=== PATIENT | female | born 1940 | race Caucasian/White ===

== ENCOUNTER 2016-07-09 08:09 | Outpatient (CLI) | payer MEDICARE ==
[~2016-07-09] VITALS: Ht 170.2 cm; Wt 63.5 kg
[~2016-07-09 08:09] MED LIST: ACET-2422 PO; ACET-2469 PO; ACET-575 PO; ASPI-999 PO; ATEN50TA PO; BUPIVACAINE 0.5% 30 ML (SENSORCAINE) VIAL ONE; HYDR-3820 PO; LIDOCAINE 1% INJ 20 ML (XYLOCAINE) VIAL ONE; MULT-305 PO; OMEG-160 PO; TRAM50TA2 PO; TRIAMCINOLONE ACET (KENALOG-40) 40 MG/ML 1 ML VIAL ONE; ZOLP5TAB PO
--- OUTSIDE RECORDS SUMMARY | 2016-07-09 08:12 | XMS REPORT | Continuity of Care Document ---
Author Author [facility] Organization [facility] Address Unknown Phone Unavailable Care Team Providers Care Riprap Placing Supervisor Name Role Phone TIKI NAVARRO MD PCP Insurance Providers Payer Name Policy Number Subscriber Name Relationship [employer] [id number] Chavo Lugo 18 Self / Same As Patient [facility] [id number] Chavo Lugo 18 Self / Same As Patient Advance Directives Directive Response Recorded Date/Time Advance Directives Yes 05/10/14 7:53am Health Care Power of Retail Branch Manager Yes 05/10/14 7:53am Organ Donor No 05/10/14 7:53am Resuscitation Status Full Code 05/10/14 7:53am Problems No known problems or medical conditions. Medications No known medications. Social History Social History Problem Response Recorded Date/Time Recent Foreign Travel No 05/10/2014 7:55am Hospital Discharge Instructions No hospital discharge instructions. Plan of Care No plan of care. Functional Status No functional status results. Allergies, Adverse Reactions, Alerts Allergen Type Severity Reaction Status Last Updated No Known Drug Allergies Active 05/10/14 Immunizations No immunization records. Vital Signs Acute Vital Signs Vital Response Date/Time Temperature (Fahrenheit) 98.3 degrees F (97.6 - 99.5) Temperature (Calculated Celsius) 36.45494 degrees C (36.4 - 37.5) Temperature Source Tympanic Pulse Rate (adult) 66 bpm (60 - 90) Respiratory Rate 18 bpm (12 - 24) O2 Sat by Pulse Oximetry 97 % (88 - 100) Blood Pressure 183/87 mm Hg Pain Pain Intensity 4 Pain Pain Intensity 4 Height (Feet) 5 feet Height (Inches) 7.00 inches Height (Calculated Centimeters) 170.529477 cm Weight (Pounds) 165 pounds Weight (Calculated Grams) 57113.742 gm Weight (Calculated Kilograms) 74.441471 kilograms Calculated BMI 25.84 Results No known relevant diagnostic tests, laboratory data and/or discharge summary. Procedures No known history of procedures. Encounters Encounter Location Date/Time Registered Clinic [facility] 05/10/14 7:37am
[2016-07-09 08:23] VITALS: BP 151/68
[2016-07-09 08:50] VITALS: BP 121/98
--- NOTE | 2016-07-09 14:05 | Pain Medicine-Procedure ---
Procedure Pre-Op/Post-Op Diagnosis Diagnosis: spondylosis without myelopathy, lumbar Indications for Operation Low back and hip pain Attending Surgeon Jone Procedure Date of Service: Jul 09, 2016 Procedure: Fluoroscopic guided Right Medial Branch Block of L3 to sacral ala and right sacroiliac joint injection PROCEDURE IN DETAIL: After obtaining informed consent from the patient, the patient's chart was reviewed. The patient was then brought to the procedure room and placed in the prone position. A time out was performed. The back was prepped with antiseptic solution and under fluoroscopic guidance the patient's sacral ala on the right side was identified. 2 mL's of 1% Lidocaine was used to anesthetized the skin over the sacral ala and a 22 gauge 3.5 inch needle was advanced towards the target until bone was contacted. The junction of the superior articular processes and the transverse processes at L3-L5 on the right were then identified and the skin overlying these targets was anesthetized with 1% lidocaine. Next a 22 gauge 3.5 inch needle was inserted through the skin to the level of the lumbar medial branches under radiographic guidance. Attention was then directed to the right sacroiliac joint which was identified under fluoroscopy and the skin overlying the posterior inferior one third of the joint was anesthetized with 1 percent lidocaine and a 22-gauge 3-1/2 inch needle was inserted. The needle was advanced into the joint. Next, after negative aspiration, a 4 ml mixture of 2 mL's Bupivacaine 0.5% and 80 mg Kenalog was injected in 4 equal aliquots for the lumbar medial branches and a total of 40 mg of Kenalog and 2 mL of 0.5 percent bupivacaine was injected in the sacroiliac joint. CSF was negative, paresthesia was negative, Heme was negative. All needles were then flushed with 1% lidocaine and then removed. Band-Aids were applied to all the sites and the patient tolerated the procedure well and was taken to the recovery area in stable condition. Patient was discharged to home in stable condition with no new neurologic deficits. Complications None JAMES HICKEY MD Jul 09, 2016 2:05 pm
== END 2016-07-09 08:53 | disposition home or self-care (01) ==
LOC: CARD 08:09
PROVIDERS: ATTEND Pain Medicine Pain Medicine
DX: M53.3 Sacrococcygeal disorders, not elsewhere classified (principal); M47.816 Spondylosis without myelopathy or radiculopathy, lumbar region; Z79.899 Other long term (current) drug therapy
CPT/HCPCS: 27096; 64493; 64494; 64495

== ENCOUNTER → 2016-07-21 | Outpatient (CLI) | payer MEDICARE ==
[~2016-07-21] MED LIST changes: -BUPIVACAINE 0.5% 30 ML (SENSORCAINE) VIAL ONE; -LIDOCAINE 1% INJ 20 ML (XYLOCAINE) VIAL ONE; -TRIAMCINOLONE ACET (KENALOG-40) 40 MG/ML 1 ML VIAL ONE
--- OUTSIDE RECORDS SUMMARY | 2016-07-21 10:32 | XMS REPORT | Continuity of Care Document ---
Author Author [facility] Organization [facility] Address Unknown Phone Unavailable Care Team Providers Care Heel Stainer Name Role Phone TIKI NAVARRO MD PCP Insurance Providers Payer Name Policy Number Subscriber Name Relationship [employer] [id number] Chavo Lugo 18 Self / Same As Patient [facility] [id number] Chavo Lugo 16 Self / Same As Patient Advance Directives Directive Response Recorded Date/Time Advance Directives Yes 05/10/14 7:53am Health Care Power of Pediatrics Hospitalist Yes 05/10/14 7:53am Organ Donor No 05/10/14 [...] F (97.6 - 99.5) Temperature (Calculated Celsius) 36.11551 degrees C (36.4 - 37.5) Temperature Source Tympanic Pulse Rate (adult) 66 bpm (60 - 90) Respiratory Rate 18 bpm (12 - 24) O2 Sat by Pulse Oximetry 97 % (88 - 100) Blood Pressure 183/87 mm Hg Pain Pain Intensity 4 Pain Pain Intensity 4 Height (Feet) 5 feet Height (Inches) 7.00 inches Height (Calculated Centimeters) 170.376056 cm Weight (Pounds) 165 pounds Weight (Calculated Grams) 24377.742 gm Weight (Calculated Kilograms) 74.461867 kilograms Calculated BMI 25.84 Results No known relevant diagnostic tests, laboratory data and/or discharge summary. Procedures No known history of procedures. Encounters Encounter Location Date/Time Registered Clinic [facility] 05/10/14 7:37am
--- NOTE | 2016-07-21 11:21 | Diagnostic Imaging Report ---
INDICATION: Low back pain EXAMINATION: Lumbar spine AP and lateral views of lumbar spine show scoliosis of lumbar spine convex to the right. There is right lateral listhesis of L3 on L4. Alignment is otherwise normal. There is disc space narrowing of the discs at L1-L2 and L2-3. There is disc space narrowing at L4-5 and L5-S1. IMPRESSION: Moderate scoliosis with associated degenerative changes. There are no fractures or acute abnormality seen. Dictated by: Dictated on workstation # [id number]
== END ==
LOC: RAD 10:28
PROVIDERS: ATTEND Pain Medicine Pain Medicine
DX: M54.5 Low back pain (principal)
CPT/HCPCS: 72100

== ENCOUNTER 2016-10-29 08:52 | Outpatient (CLI) | payer MEDICARE ==
[~2016-10-29] VITALS: Ht 170.2 cm; Wt 63.5 kg
[2016-10-29] MEDS ORDERED: LIDOCAINE 1% INJ 20 ML (XYLOCAINE) VIAL ONE (09:08)
[2016-10-29] MEDS ORDERED: TRIAMCINOLONE ACET (KENALOG-40) 40 MG/ML 1 ML VIAL ONE (09:08)
[2016-10-29] MEDS ORDERED: BUPIVACAINE 0.25% 30 ML (SENSORCAINE) VIAL ONE (09:08)
[2016-10-29 09:13] VITALS: BP 144/86
[2016-10-29] MEDS ORDERED: BUPIVACAINE 0.5% 30 ML (SENSORCAINE) VIAL ONE (09:20)
[2016-10-29 10:08] VITALS: BP 165/81
--- NOTE | 2016-10-29 13:15 | Pain Medicine-Procedure ---
Procedure Pre-Op/Post-Op Diagnosis Diagnosis: spondylosis without myelopathy, lumbar Indications for Operation Low back and hip pain Attending Surgeon Jone Procedure Date of Service: October 29, 2016 Procedure: Fluoroscopic guided Right Medial Branch Block of L3 to sacral ala and right sacroiliac joint injection PROCEDURE IN DETAIL: After obtaining informed consent from the patient, the patient's chart was reviewed. The patient was then brought to the procedure room and placed in the prone position. A time out was performed. The back was prepped with antiseptic solution and under fluoroscopic guidance the patient's sacral ala on the right side was identified. 2 mL's of 1% Lidocaine was used to anesthetized the skin over the sacral ala and a 22 gauge 3.5 inch needle was advanced towards the target until bone was contacted. The junction of the superior articular processes and the transverse processes at L3-L5 on the right were then identified and the skin overlying these targets was anesthetized with 1% lidocaine. Next a 22 gauge 3.5 inch needle was inserted through the skin to the level of the lumbar medial branches under radiographic guidance. Attention was then directed to the right sacroiliac joint which was identified under fluoroscopy and the skin overlying the posterior inferior one third of the joint was anesthetized with 1 percent lidocaine and a 22-gauge 3-1/2 inch needle was inserted. The needle was advanced into the joint. Next, after negative aspiration, a 4 ml mixture of 2 mL's Bupivacaine 0.5% and 80 mg Kenalog was injected in 4 equal aliquots for the lumbar medial branches and a total of 40 mg of Kenalog and 2 mL of 0.5 percent bupivacaine was injected in the sacroiliac joint. CSF was negative, paresthesia was negative, Heme was negative. All needles were then flushed with 1% lidocaine and then removed. Band-Aids were applied to all the sites and the patient tolerated the procedure well and was taken to the recovery area in stable condition. Patient was discharged to home in stable condition with no new neurologic deficits. Complications None JAMES HICKEY MD October 29, 2016 1:14 pm
== END 2016-10-29 10:08 | disposition home or self-care (01) ==
LOC: CARD 08:52
PROVIDERS: ATTEND Pain Medicine Pain Medicine
DX: M53.3 Sacrococcygeal disorders, not elsewhere classified (principal); M47.816 Spondylosis without myelopathy or radiculopathy, lumbar region
CPT/HCPCS: 27096; 64493; 64494; 64495

== ENCOUNTER → 2016-11-08 | Outpatient (CLI) | payer MEDICARE ==
[2016-11-08 12:56] LABS: BASOPHILS % (AUTO) 0 % (0-10); EOSINOPHILS # (AUTO) 0.1 10^3/uL (0.0-0.3); EOSINOPHILS % (AUTO) 1 % (0-10); LYMPHOCYTES # (AUTO) 1.9 X 10^3 (1.0-4.0); LYMPHOCYTES % (AUTO) 16 % (12-44); MEAN CORPUSCULAR HEMOGLOBIN 29 PG (25-34); MEAN CORPUSCULAR HGB CONC 32 G/DL (32-36); MEAN CORPUSCULAR VOLUME 89 FL (80-99); MEAN PLATELET VOLUME 9.7 FL (7.4-10.4); MONOCYTES # (AUTO) 0.8 X 10^3 (0.0-1.0); MONOCYTES % (AUTO) 7 % (0-12); NEUTROPHILS # (AUTO) 8.7 X 10^3 (1.8-7.8); NEUTROPHILS % (AUTO) 76 % (42-75); PLATELET COUNT 316 10^3/uL (130-400); WHITE BLOOD COUNT 11.5 10^3/uL (4.3-11.0)
[2016-11-08 13:09] LABS: PROTHROMBIN TIME PATIENT 12.4 SEC (12.2-14.7)
[2016-11-08 13:17] LABS: ALBUMIN 4.4 G/DL (3.2-4.5); BILIRUBIN,DIRECT 0.1 MG/DL (0.0-0.3); BILIRUBIN,INDIRECT 0.4 MG/DL; BILIRUBIN,TOTAL 0.5 MG/DL (0.1-1.0); TOTAL PROTEIN 6.9 G/DL (6.4-8.2)
== END ==
LOC: LAB 12:37
PROVIDERS: ATTEND Nurse Practitioner Family
DX: T14.8 Other injury of unspecified body region (principal); R74.8 Abnormal levels of other serum enzymes
CPT/HCPCS: 36415; 80076; 85025; 85610

== ENCOUNTER 2017-02-24 15:31 | Outpatient (CLI) | payer MEDICARE ==
[~2017-02-24] VITALS: Ht 170.2 cm; Wt 63.0 kg
[2017-02-24] MEDS ORDERED: methylPREDNISolone 80 MG/ML (DEPO MEDROL) VIAL ONE (16:08)
[2017-02-24 16:12] VITALS: BP 148/67
[2017-02-24 16:25] VITALS: BP 175/70
--- NOTE | 2017-03-02 07:36 | OPERATIVE REPORT ---
DATE OF SERVICE: 02/24/2017 DIAGNOSES: 1. Lumbar spondylosis. 2. Lumbar facet arthropathy. PROCEDURE: Fluoroscopic-guided facet medial branch block (right, left or bilateral). PROCEDURE IN DETAIL: After obtaining informed consent from the patient, the patient's chart was reviewed. The patient was then brought to the procedure room and placed in prone position. Time-out was performed. The area and the ____ neck, upper back, lower back was prepped with antiseptic solution and under fluoroscopic guidance, the patient's area was examined and the facet joints listed above were identified. ____ was identified under fluoroscopy. A 22-guage 3-1/2 inch spinal needle was inserted and advanced under fluoroscopy down to the area where the pedicle and the transverse process meet and approximately 1 mL of 1% lidocaine was injected at this level. This was then repeated for the remainder of the levels stated above. Afterwards, the needle was removed. Band-Aids were applied to all sites and the patient tolerated the procedure well and was taken to the recovery area in stable condition. COMPLICATIONS: None. Job ID: [id number] DocumentID: [id number] Dictated Date: 02/28/2017 16:46:19 Tennis Instructor Date: 03/01/2017 04:53:35 Dictated By: CAN LAZCANO DO
== END 2017-02-24 16:34 ==
LOC: CARD 15:31
PROVIDERS: ATTEND Pain Medicine Interventional Pain Medicine
DX: M47.816 Spondylosis without myelopathy or radiculopathy, lumbar region (principal); G89.4 Chronic pain syndrome; M54.16 Radiculopathy, lumbar region
CPT/HCPCS: 64493; 64494; 64495

== ENCOUNTER 2017-06-16 12:25 | Outpatient (CLI) | payer MEDICARE ==
[~2017-06-16] VITALS: Ht 170.2 cm; Wt 62.6 kg
[2017-06-16] MEDS ORDERED: methylPREDNISolone 80 MG/ML (DEPO MEDROL) VIAL ONE (12:31)
[2017-06-16 13:03] VITALS: BP 136/57
[2017-06-16 14:01] VITALS: BP 140/62
--- NOTE | 2017-06-18 03:57 | OPERATIVE REPORT ---
DATE OF SERVICE: 06/16/2017 DIAGNOSIS: Lumbar spondylosis. PROCEDURE: Fluoroscopic-guided facet medial branch block right-sided L3, L4, L5, and S1 facet joint nerve block. PROCEDURE IN DETAIL: After obtaining informed consent from the patient, the patient's chart was reviewed. The patient was then brought to the procedure room and placed in prone position. Time-out was performed. The area and the right neck, upper back, lower back was prepped with antiseptic solution and under fluoroscopic guidance, the patient's right side L3, L4, L5 and S1 area was examined and the facet joints listed above were identified. Right side L3, L4, L5, and S1 was identified under fluoroscopy. A 22-gauge 3-1/2 inch spinal needle was inserted and advanced under fluoroscopy down to the area where the pedicle and the transverse process meet and approximately 1 mL of 1% lidocaine was injected at this level. This was then repeated for the remainder of the levels stated above. Afterwards, the needle was removed. Band-Aids were applied to all sites and the patient tolerated the procedure well and was taken to the recovery area in stable condition. COMPLICATIONS: None. Job ID: [id number] DocumentID: [id number] Dictated Date: 06/17/2017 19:05:25 Linux Engineer Date: 06/18/2017 03:56:44 Dictated By: CNA LAZCANO DO
== END 2017-06-16 14:03 ==
LOC: CARD 12:25
PROVIDERS: ATTEND Pain Medicine Interventional Pain Medicine
DX: M54.16 Radiculopathy, lumbar region (principal)
CPT/HCPCS: 62323

== ENCOUNTER → 2017-11-10 | Outpatient (CLI) | payer MEDICARE ==
--- NOTE | 2017-11-10 17:20 | Diagnostic Imaging Report ---
INDICATION: Pain in right fourth finger. TIME OF EXAM: 1:34 p.m. Three views of the right fourth finger were obtained. The alignment is normal. Phalanges appear intact. Joint spaces are maintained. Soft tissues are unremarkable. No fractures are identified. IMPRESSION: No acute bony abnormality is detected. Dictated by: Dictated on workstation # [id number]
== END ==
LOC: RAD 13:03
PROVIDERS: ATTEND Nurse Practitioner Family
DX: M79.644 Pain in right finger(s) (principal)
CPT/HCPCS: 73140

== ENCOUNTER 2018-10-02 19:06 | Inpatient (IN) | payer MEDICARE | END 2018-10-05 11:16 | LOC: ER 19:06 → ICU 10-03 20:32 → 4TH 10-03 20:32 ==

== ENCOUNTER 2018-10-05 10:35 | Inpatient (IN) | payer MEDICARE ==
[~2018-10-05] VITALS: Ht 165.1 cm; Wt 70.3 kg
[~2018-10-05 10:35] MED LIST changes: +ACET-2267 PO; +ASPI-983 PO; +LORA10TA76 PO; +MELA3TAB PO; +MULT-633 PO; +TOLT2CAP PO; +TOLTA4 PO
--- NOTE | 2018-10-05 10:35 | NUR ---
Pt admitted to room 232-1, with an admitting diagnosis of S/P Lt hip hemiarthroplasty post fall at home from 4th surgical unit accompanied by PT. CHAVO LUGO introduced to surroundings, call light, bed controls, phone, TV, temperature control, lights, meal times, smoking policy, visitor policy, side rail policy, bathrooms and showers. Patient Rights given to patient in the handbook. CHAVO LUGO verbalizes understanding that [facility] is not responsible for the loss or damage to any personal effects or valuables that are kept in the patients posession during their hospitalization. The following Patient Care Plans were discussed with the pt: Discharge Planning, Impaired Mobility, Self Care Deficit, Potential for fall/injury. CHAVO LUGO verbalizes understanding of Interdisciplinary Patient Education. Patient and/or family were informed about the Rapid Response Team and its purpose. Patient received Patient Rights Booklet, which includes Privacy Act Statement and Data Collection Information Summary. Pt working w PT immediately upon arrival to unit.
--- NOTE | 2018-10-05 11:41 | Physical Therapy Evaluation ---
PT Evaluation-General Medical Diagnosis Admission Date Medical Diagnosis: left hip fracture Onset Date: Oct 02, 2018 Therapy Diagnosis Therapy Diagnosis: impaired mobility, strength, endurance Height/Weight Height (Feet): 5 Height (Inches): 5.00 Weight (Pounds): 138 Weight (Ounces): 6.0 Weight Bear Status Left Lower Extremity: Left Touch Toe Bearing total hip precautions Referral Physician: Brigette Lopez DO Reason for Referral: Evaluation/Treatment Medical History Pertinent Medical History: Arthritis, HTN Reviewed History: Yes Social History Home: Multilevel Current Living Status: Spouse Entry Into Home: Stairs With Railing PT Steps Into Home: 1 Prior/Core FIM Prior Level of Function Therapy Code Descriptions/Definitions Functional [place] Measure: 0=Not Assessed/NA 4=Minimal Assistance 1=Total Assistance 5=Supervision or Setup 2=Maximal Assistance 6=Modified [place] 3=Moderate Assistance 7=Complete [place] Therapy Quality Codes: 6 Independent with activity with or without an assistive device 5 Patient requires set up or clean up by helper. Patient completes activity by themselves 4 Supervision or touching assist (CGA). [place] provide cues , steadying assist 3 The helper provides less than half the effort to complete the activity 2 The helper provides more than half the effort to complete the activity 1 Dependent. The helper does all the effort to complete an activity 7 Patient refused to complete or attempt activity 9 The patient did not perform the activity before the current illness or injury 88 Not attempted due to Medical conditions or safety concerns Functional Abilities and Goals: Independent: Patient completed the activities by him/herself, with or without an assistive device, with no assistance from a helper. Needed Some Help: Patient needed partial assistance from another person to complete activities. Dependent: A helper completed the activities for the patient. Unknown: Not Applicable: Bed Mobility: 7 Transfers (B,C,W/C) (FIM): 7 Gait: 7 Stairs: 7 Indoor Mobility (Ambulation): Independent Stairs: Independent PT Evaluation-Current Subjective Patient in bed pre tx, agrees to PT, has pain of 6/10 in left hip. Pt/Family Goals to be independent at home Objective Patient Orientation: Person, Place, Situation ROM/Strength ROM Lower Extremities NT on LLE, RLE WNL Strenght Lower Extremities NT on LLE, RLE 4/5 gross Neuromuscular (Tone, Coordination, Reflexes) NT Sensory Vision: Wears Glasses Hearing: Functional Sensation Right Lower Extremit: Intact Sensation Left Lower Extremity: Intact Transfers Therapy Code Descriptions/Definitions Functional [place] Measure: 0=Not Assessed/NA 4=Minimal Assistance 1=Total Assistance 5=Supervision or Setup 2=Maximal Assistance 6=Modified [place] 3=Moderate Assistance 7=Complete [place] Therapy Quality Codes: 6 Independent with activity with or without an assistive device 5 Patient requires set up or clean up by helper. Patient completes activity by themselves 4 Supervision or touching assist (CGA). [place] provide cues , steadying assist 3 The helper provides less than half the effort to complete the activity 2 The helper provides more than half the effort to complete the activity 1 Dependent. The helper does all the effort to complete an activity 7 Patient refused to complete or attempt activity 9 The patient did not perform the activity before the current illness or injury 88 Not attempted due to Medical conditions or safety concerns Transfers (B, C, W/C) (FIM): 3 Scootin Rollin Roll Left to Right (QC): 3 Supine to/from Sit: 3 Sit to/from Stand: 4 bed t/f WC(FIM only if WC use): 3 Sit to Lying (QC): 2 Lying to Sitting/Side of Bed(Q: 2 Sit to Stand (QC): 3 Chair/Ice-ic-Tayhs Xfer(QC): 3 Car Transfer (QC): 3 Patient performs bed mobility with min assist, supine <-> sit with mod assist, sit <-> stand with min assist, transfers with min assist, car transfer min assist. Patient needs frequent cues for proper positioning during transfers. She will always try to pull up from the walker when standing. Gait Does the Patient Walk?: Yes Mode of Locomotion: Walk Anticipated Mode of Locomotion: Walk Gait (FIM): 1 Walk 10 feet (QC): 3 Distance: 10' Gait Level of Assist: 4 Gait Persons Needed: 1 Gait Assistive Device: FWW Comments/Gait Description Patient can ambulate 10' with a rolling walker with min assist. She needs cues to maintain her TTWB and her arms fatigue quickly. Stairs If not tested on admit;explain Patient has a lot of difficulty maintaining her weight bearing status and doing even one step would cause her to bear too much weight through her left leg. Balance Sitting Static: Good Sitting Dynamic: Good Standing Static: Fair Standing Dynamic: Fair Treatment Patient was toileted twice for a BM, she seems to have diarrhea, she needs max assist but was able to wipe herself. The nurse wiped patient the first time. Assessment/Needs Patient has impaired mobility, strength, endurance post left hip fracture and hemiarthroplasty. She has trouble following directions and maintaining TTWB. Rehab Potential: Fair PT Short Term Goals Short Term Goals Time Frame: Oct 12, 2018 Transfers (B,C,W/C) (FIM): 4 Gait (FIM): 1 Gait Distance Comment: 20' Gait Level of Assist: 4 Gait Assistive Device: FWW PT [facility] Goals [facility] Goals PT [facility] Goals Time Frame: October 26, 2018 Transfers (B,C,W/C) (FIM): 5 Sit to Lying (QC): 4 Lying-Sitting on Side/Bed(QC): 4 Sit to Stand (QC): 4 Rollin Roll Left to Right (QC): 4 Chair/Jcj-er-Tbcns Xfer(QC): 4 Car Transfer (QC): 4 Gait (FIM): 2 Distance: 50' Walk 10 feet (QC): 4 Walk 10ft-Uneven Surface(QC): 4 Walk 50ft with 2 Turns (QC): 4 Gait Level of Assist: 5 Gait Assistive Device: FWW Stairs (FIM): 1 # of Steps: 1 1 Step (curb) (QC): 4 Stairs Level Of Assist: 4 PT Plan Problem List Problem List: Activity Tolerance, Functional Strength, Safety, Balance, Gait, Transfer, Bed Mobility, ROM Treatment/Plan Treatment Plan: Continue Plan of Care Treatment Plan: Bed Mobility, Education, Functional Activity Anitra, Functional Strength, Group Therapy, Gait, Safety, Therapeutic Exercise, Transfers Treatment Duration: October 26, 2018 Frequency: At least 5 of 7 days/Wk (IRF) Estimated Hrs Per Day: 1.5 hours per day Patient and/or Family Agrees t: Yes Safety Risks/Education Patient Education: Gait Training, Transfer Techniques, Reviewed Precautions, Correct Positioning, Safety Issues Teaching Recipient: Patient Teaching Methods: Demonstration, Discussion Response to Teaching: Reinforcement Needed Discharge Recommendations Plan Patient will perform bed mobility and transfer training, balance and endurance training, functional strengthening, stair training, gait training, and education , to improve functional mobility and independence at home. Therapy D/C Recommendations: Home w/ Family Support, Custodial (TCU/NH) Time/GCodes Time In: 1025 Time Out: 1125 Total Billed Treatment Time: 60 Total Billed Treatment 1 visit EVM 30' FA 30' EDDIE MOSS PT Oct 05, 2018 11:41
[2018-10-05 11:45] VITALS: BP 138/68
[2018-10-05] MEDS ORDERED: DOCUSATE SODIUM 100 MG (COLACE) CAP PO PRN (11:45)
[2018-10-05] MEDS ORDERED: ONDANSETRON 4 MG/2 ML (SDV) Z0FRAN IVP PRN (11:45)
[2018-10-05] MEDS ORDERED: diphenhydrAMINE 25 MG TAB (BENADRYL) PO PRN (11:45)
[2018-10-05] MEDS ORDERED: ACETAMINOPHEN 500 MG TAB (TYLENOL) PO PRN ×2 (11:45)
[2018-10-05] MEDS ORDERED: ALPRAZolam 0.25 MG (XANAX) TAB PO PRN (11:45)
[2018-10-05] MEDS ORDERED: CALCIUM CARBONATE 500 MG (TUMS) TAB.CHEW PO PRN (11:45)
[2018-10-05] MEDS ORDERED: fentaNYL INJECTION 100 MCG/2 ML AMP IV PRN (11:45)
--- NOTE | 2018-10-05 12:30 | Occupational Therapy Eval ---
OT Evaluation-General/PLF Medical Diagnosis Admission Date Oct 05, 2018 at 10:35 Medical Diagnosis: left hip fracture Onset Date: Oct 02, 2018 Therapy Diagnosis Therapy Diagnosis: impaired ADLS and mobility, weakness Height/Weight Height (Feet): 5 Height (Inches): 5.00 Weight (Pounds): 138 Weight (Ounces): 6.0 Weight Bear Status Weight Bearing Restriction: Touch Toe Bearing Location Restriction: L LE Referral Physician: Brigette Lopez DO Referral Reason: Activity Tolerance, Self Care, Evaluation/Treatment, Strengthening/ROM Medical History Pertinent Medical History: Arthritis, HTN Current History 78-year-old female who was brought to the emergency room by [facility] after she was rounding a corner in her home and lost her footing and fell onto her left hip. She is in no pain when the hip is immobilized. There is obvious shortening and internal rotation. Denies hitting her head, loss of consciousness , or other injuries from the fall. Reviewed History: Yes Social History Home: [facility] Current Living Status: Spouse Entry Into Home: Stairs With Railing Steps Into Home: 1 Other Obstacles: walkin shower with shower chair ADL-Prior Level of Function Therapy Code Descriptions/Definitions Functional [place] Measure: 0=Not Assessed/NA 4=Minimal Assistance 1=Total Assistance 5=Supervision or Setup 2=Maximal Assistance 6=Modified [place] 3=Moderate Assistance 7=Complete [place] Therapy Quality Codes: 6 Independent with activity with or without an assistive device 5 Patient requires set up or clean up by helper. Patient completes activity by themselves 4 Supervision or touching assist (CGA). [place] provide cues , steadying assist 3 The helper provides less than half the effort to complete the activity 2 The helper provides more than half the effort to complete the activity 1 Dependent. The helper does all the effort to complete an activity 7 Patient refused to complete or attempt activity 9 The patient did not perform the activity before the current illness or injury 88 Not attempted due to Medical conditions or safety concerns Functional Abilities and Goals: Independent: Patient completed the activities by him/herself, with or without an assistive device, with no assistance from a helper. Needed Some Help: Patient needed partial assistance from another person to complete activities. Dependent: A helper completed the activities for the patient. Unknown: Not Applicable: Self Care: Independent Functional Cognition: Independent DME/Equipment: Bath Chair Drive Self: No OT Current Status Subjective pt sitting in recliner chair upon OT arrival in no apparent distress. pt agreed to OT evaluation/ treatment session. pt complains of 7/10 L hip pain . NSG notified. Appearance post OT session, pt sitting in recliner chair with call light, phone, and tray within reach, all needs met. Mental Status/Objective Patient Orientation: Normal For Age Current Glasses/Contacts: Yes Hearing Aids: No Dentures/Partials: Yes Hand Dominance: Right Upper Extremity ROM WFL Upper Extremity Coordination WFL Upper Extremity Sensation WFL Upper Extremity Strength WFL ADL-Treatment Eating (FIM): 6 Eating (QC): 6 Grooming (FIM): 4 (CGA for safety/ balance) Oral Hygiene (QC): 4 (seated) Bathing (FIM): 2 Shower/Bathe Self (QC): 1 Upper Body Dressing (FIM): 4 Upper Body Dressing (QC): 4 Lower Body Dressing (FIM): 1 Lower Body Dressing (QC): 1 On/Off Footwear (QC): 1 Toileting (FIM): 1 Toileting Hygiene (QC): 1 Transfers (B, C, W/C) (FIM): 3 (required MOD A secodnary to hip precuations) Toilet/Commode Transfer (FIM): 3 Toilet Transfer (QC): 2 Shower Transfer (FIM): 0 (refused) Education OT Patient Education: Energy conservation, Modified ADL techniques, Progress toward Goal/Update tx plan, Purpose of tx/functional activities, Reviewed precautions, Rehab process, Safety issues, Transfer techniques, Use of adapted equipment Teaching Recipient: Patient Teaching Methods: Demonstration, Discussion Response to Teaching: Reinforcement Needed OT Short Term Goals Short Term Goals Grooming(FIM): 5 Bathing(FIM): 5 Bathing Location: L Arm, R Arm, L Upper Leg, R Upper Leg, L Lower Leg ( including foot), R Lower Leg (including foot), Chest, Abdomen, Buttocks, Perineal Area Upper Body Dressing(FIM): 5 Lower Body Dressing(FIM): 5 Toileting(FIM): 5 Transfers (B,C,W/C) (FIM): 4 Toilet/Commode Transfer(FIM): 4 Tub Transfer(FIM): 4 1=Demonstrate adherence to instructed precautions during ADL tasks. 2=Patient will verbalize/demonstrate understanding of assistive devices/ modifications for ADL. 3=Patient will improve strength/tolerance for activity to enable patient to perform ADL's. OT Assisted Goals Cyber Ops Planner Goals Eating (FIM): 7 Eating (QC): 6 Groomin Oral Hygiene (QC): 6 Bathing(FIM): 6 Bathing Location: L Arm, R Arm, L Upper Leg, R Upper Leg, L Lower Leg ( including foot), R Lower Leg (including foot), Chest, Abdomen, Buttocks, Perineal Area Shower/Bathe Self (QC): 6 Upper Body Dressing(FIM): 6 Upper Body Dressing (QC): 6 Lower Body Dressing(FIM): 6 Lower Body Dressing (QC): 6 On/Off Footwear (QC): 6 Toileting(FIM): 6 Toileting Hygiene (QC): 6 Transfers (B,C,W/C) (FIM): 6 Toilet/Commode Transfer(FIM): 6 Toilet/Commode Transfer (QC): 6 Shower Transfer(FIM): 6 Additional Goals: 1-Demonstrate ADL Tasks, 2-Verbalize Understanding, 3- ImproveStrength/Anitra 1=Demonstrate adherence to instructed precautions during ADL tasks. 2=Patient will verbalize/demonstrate understanding of assistive devices/ modifications for ADL. 3=Patient will improve strength/tolerance for activity to enable patient to perform ADL's. OT Education/Plan Problem List/Assessment Assessment: Decreased Activ Tolerance, Decreased Safety Aware, Decreased UE Strength, Dependent Transfers, Impaired Bed Mobility, Impaired Cognition, Impaired Coordination, Impaired Funct Balance, Impaired I ADL's, Impaired Self- Care Skills Discharge Recommendations Plan/Recommendations: Continue POC Patient/Family Goals "to do more for myself" Treatment Plan/Plan of Care Treatment,Training & Education: Yes Patient would benefit from OT for education, treatment and training to promote independence in ADL's, mobility, safety and/or upper extremity function for ADL' s. Plan of Care: ADL Retraining, Caregiver Training, Concurrent Therapy, Functional Mobility, Group Exercise/Act as Ind, UE Funct Exercise/Act Treatment Duration: November 02, 2018 Frequency: At least 5 of 7 days/Wk (IRF) Estimated Hrs Per Day: 1.5 hours per day Agreement: Yes Rehab Potential: Fair Time/GCodes Start Time: 11:30 Stop Time: 12:30 Billed Treatment Time EVM 15 minutes ADL 45 minutes, 3 units JORDAN HERNANDEZ OT Oct 05, 2018 12:30
--- NOTE | 2018-10-05 12:52 | NUR ---
REVIEWED MEDICATIONS THEY WERE REPORTED UPON PREVIOUS ADMISSION.
[2018-10-05] MEDS: HYDROcodone/APAP 5 MG/325 MG (LORTAB) TAB PO PRN ×2 (13:18→21:10)
--- NOTE | 2018-10-05 15:18 | Therapy Group Daily Note ---
Therapy Daily Group Note Patient Education Topic Other List Below (ARU expectations and memory strategies ) Exercises LE Seated Exercise, UE Exercise Session Ratio (pt:therapist): 4:1 Goal of Session: Education on ARU Expectations, Memory Strategies, UE/LE Strengthing Goal Met for this Session: Yes Pt Benefit of Group: Contributions to Others, F/U Use of Strategies @Home, Increased Functional Safety, Increased Functional Strength, Improved Cognition, Recognition of Peers, Socialization Other/Notes Pt ambulated to OT/PT group in [facility] area. Group consisted of introductions (name, place living, first pet), socialization, ARU expectations/ description, UE/LE seated exercises and memory game. Pt able to introduce self appropriately then actively listened to peers. Pt acknowledged understanding of ARU by nodding head in affirmative. Pt able to complete UE/LE seated exercises without difficulty. Pt attempted to find matches during memory activity. Pt acknowledged understanding of memory strategies and gave own strategies as an example. All needs met in room. After therapy, pt lying in bed with call light/phone in reach. Start Time: 13:00 Stop Time: 14:10 Total Billed Treatment Time: 70 Total Billed Treatment 1, GRP SIENNA FERNANDEZ DRONE PILOT Oct 05, 2018 15:17
[2018-10-05 16:37] VITALS: BP 133/58
--- NOTE | 2018-10-05 17:11 | NUR ---
TILLER WORKER met with patient to complete initial assessment. Patient was working with therapy at the time; therefore, initial assessment was present. Patient was alert and appeared oriented; however, did often request information be confirmed with spouse as she expressed uncertainty with answers. Patient admitted to ARU from internally with left hip fracture sustained after falling. Per information received from therapy evaluations as well as patient, patient and spouse, Jorge reside in a one level home in [place]. The home has one step at the entrance with railing. Prior to fracture patient reports independence without assistive device. The home is equipped with a walk in shower and shower seat. Patient reports that her and her have decreased their community outings and driving as they have aged. PCP identified as Dr. Simba Bello. Primary contact identified as spouse Jorge at [phone]. Insurance verified as Medicare and [employer] with prescription coverage. Preferred pharmacy listed as [facility]. TILLER WORKER reviewed typical ARU length of stay and weekly team conferences. Patient expresses no concerns at this time, TILLER WORKER will continue to follow.
[2018-10-05] MEDS: TOLTERODINE LA 2 MG (DETROL LA) CAP PO SCH (21:10)
[2018-10-05] MEDS: MELATONIN 3 MG TABLET PO SCH (21:11)
[2018-10-05] MEDS: POLYETHYLENE GLYCOL 17 GM (MIRALAX) PACK PO SCH (21:11)
[2018-10-06 05:44] LABS: BASOPHILS % (AUTO) 0 % (0-10); EOSINOPHILS # (AUTO) 0.7 10^3/uL (0.0-0.3); EOSINOPHILS % (AUTO) 7 % (0-10); HEMATOCRIT 30 % (35-52); HEMOGLOBIN 9.3 G/DL (11.5-16.0); LYMPHOCYTES # (AUTO) 1.3 X 10^3 (1.0-4.0); LYMPHOCYTES % (AUTO) 14 % (12-44); MEAN CORPUSCULAR HEMOGLOBIN 26 PG (25-34); MEAN CORPUSCULAR HGB CONC 31 G/DL (32-36); MEAN CORPUSCULAR VOLUME 86 FL (80-99); MEAN PLATELET VOLUME 10.5 FL (7.4-10.4); MONOCYTES # (AUTO) 1.1 X 10^3 (0.0-1.0); MONOCYTES % (AUTO) 12 % (0-12); NEUTROPHILS # (AUTO) 6.1 X 10^3 (1.8-7.8); NEUTROPHILS % (AUTO) 67 % (42-75); PLATELET COUNT 180 10^3/uL (130-400); RED CELL DISTRIBUTION WIDTH 15.2 % (10.0-14.5); WHITE BLOOD COUNT 9.1 10^3/uL (4.3-11.0)
[2018-10-06] MEDS: HYDROcodone/APAP 5 MG/325 MG (LORTAB) TAB PO PRN ×3 (05:51→20:36)
[2018-10-06] MEDS: MULTIVIT W/MINERALS TAB (THERAGRAN M) PO SCH (05:51)
[2018-10-06] MEDS: OMEGA 3 (FISH OIL) 1000 MG CAP PO SCH (05:51)
[2018-10-06 06:06] LABS: ALANINE AMINOTRANSFERASE 16 U/L (0-55); ALBUMIN 3.3 GM/DL (3.2-4.5); ALKALINE PHOSPHATASE 75 U/L (40-136); BILIRUBIN,TOTAL 0.7 MG/DL (0.1-1.0); BUN/CREATININE RATIO 24; CALCIUM 9.3 MG/DL (8.5-10.1); CARBON DIOXIDE 23 MMOL/L (21-32); CHLORIDE 105 MMOL/L (98-107); GFR ESTIMATED > 60; GLUCOSE 102 MG/DL (70-105); POTASSIUM 4.2 MMOL/L (3.6-5.0); SODIUM 136 MMOL/L (135-145); TOTAL PROTEIN 5.6 GM/DL (6.4-8.2)
[2018-10-06 06:07] VITALS: BP 138/71
[2018-10-06] MEDS: ATENOLOL 50 MG (TENORMIN) TAB PO SCH (09:27)
[2018-10-06] MEDS: TOLTERODINE LA 4 MG (DETROL) CAP PO SCH (09:27)
[2018-10-06] MEDS: LORATADINE (CLARITIN) 10 MG TAB PO SCH (09:28)
[2018-10-06] MEDS: ENOXAPARIN 40 MG/0.4 ML (LOVENOX) SYR SC SCH (09:28)
[2018-10-06] MEDS: POLYETHYLENE GLYCOL 17 GM (MIRALAX) PACK PO SCH ×2 (09:28→20:40)
--- NOTE | 2018-10-06 09:32 | PM&R H&P / Post Admit Assess ---
History of Present Illness HPI/Chief Complaint CC: Left hip fracture with debility HPI: This is an 78-year-old white female patient of Dr. Bello who presented to inpatient rehab after an uncomplicated left hip fracture repair by Dr Mccord. She will need to work on ambulation with walker and obtain return of independent ADL's in order to return home with her . She did not require a transfusion while on acute floor but does require iron infusion due to low iron level with low hemoglobin. Checked meds and labs and therapy notes. Patient has improved pain on pain meds. No chest pain or dyspnea. Reviewed list of diagnosis. PLOF was independent an currently 1 person assist. Source: patient, family, RN/MD, old records Exam Limitations: no limitations Date Seen 10/06/18 Time Seen by a Provider: 10:15 Attending Physician Brigette Lopez Floyd R MD Referring Physician Date of Admission Oct 05, 2018 at 10:35 Home Medications & Allergies Home Medications Reviewed patient Home Medication Reconciliation performed by pharmacy medication reconciliations mobile sales technician and/or nursing. Patients Allergies have been reviewed. Allergies Allergies Coded Allergies No Known Drug Allergies ([id number]/14) Past [id number]-Ooadfv Hx Past Med/Social Hx: Reviewed Nursing Past Med/Soc Hx, Reviewed and Corrections made Patient Social History Marrital Status: Employed/Student: retired Alcohol Use: Denies Use Recreational Drug Use: No Smoking Status: Never a Smoker Physical Abuse Screen: No Sexual Abuse: No Recent Foreign Travel: No Contact w/other who traveled: No Recent Hopitalizations: Yes Recent Infectious Disease Expo: No Immunizations Up To Date Tetanus Booster (TDap): Less than 5yrs Date of Pneumonia Vaccine: Mar 20, 2015 Date of Influenza Vaccine: Mar 27, 2018 Seasonal Allergies Seasonal Allergies: No Past Medical History Surgeries: Bowel Surgery, Hysterectomy, Orthopedic Cardiac: Hypertension Reproductive: No Musculoskeletal: Arthritis, Fractures HEENT: Cataract Psychosocial: Sleep Difficulties Skin/Integumentary: Recent Skin Changes Family History Cardiovascular disease 19 FATHER 19 MOTHER FH: stroke 19 MOTHER No Pertinent Family Hx Review of Systems Constitutional: see HPI, malaise, weakness EENTM: no symptoms reported Respiratory: no symptoms reported Cardiovascular: no symptoms reported Gastrointestinal: no symptoms reported Genitourinary: no symptoms reported Musculoskeletal: joint pain Skin: no symptoms reported Psychiatric/Neurological: No Symptoms Reported All Other Systems Reviewed Negative Unless Noted: Yes Physical Exam Exam Vital Signs Vital Signs Date Time Temp Pulse Resp B/P (MAP) Pulse Ox O2 Delivery O2 Flow Rate FiO2 10/06/18 10:17 98.4 10/06/18 06:07 78 20 138/71 (93) 97 Room Air Capillary Refill : Less Than 3 Seconds General Appearance: No Apparent Distress, WD/WN, Chronically ill, Thin HEENT: PERRL/EOMI, Normal ENT Inspection, Pharynx Normal, Moist Mucous Membranes Neck: Full Range of Motion, Normal Inspection, Non Tender, Supple Respiratory: Chest Non Tender, Lungs Clear, Normal Breath Sounds, No Accessory Muscle Use, No Respiratory Distress Cardiovascular: Regular Rate, Rhythm, No Edema, No Gallop, No JVD, No Murmur Gastrointestinal: Normal Bowel Sounds, No Organomegaly, No Pulsatile Mass, Non Tender, Soft Back: Normal Inspection, No CVA Tenderness, No Vertebral Tenderness Extremity: Normal Capillary Refill, Normal Inspection, Normal Range of Motion ( decreased ROM left leg), Non Tender, No Calf Tenderness, No Pedal Edema Neurologic/Psychiatric: Alert, Oriented x3, No Motor/Sensory Deficits, Normal Mood/Affect Skin: Normal Color, Warm/Dry Lymphatic: No Adenopathy Results Results/Procedures Labs Laboratory Tests 10/06/18 05:35 Patient resulted labs reviewed. Assessment/Plan Assessment and Plan Assess & Plan/Chief Complaint (1) Hip fracture, left s/p repair Status: Acute (2) Hypertension Status: Chronic (3) Osteoarthritis Status: Chronic (4) Insomnia Status: Chronic (5) History of humerus fracture Status: Chronic (6) History of bowel resection Status: Chronic (7) Overactive bladder Status: Chronic (8) Acute blood loss anemia Status: Acute Plan: IRF protocol Return to independent activity prior to DC home with his (1) Hip fracture, left (2) Humeral fracture (3) Insomnia (4) Osteoarthritis (5) Hypertension (6) Overactive bladder (7) History of humerus fracture (8) Acute blood loss anemia (9) History of bowel resection Post Admission Physician Asses Date seen by provider: Oct 06, 2018 Time seen by provider: 10:15 Admisison Dx: (1) Hip fracture, left The preadmission screen agrees with the post admission assessment that the patient is a good candidate for inpatient rehabilitation. The patient will have a comprehensive program of inpatient rehabilitation with a goal of maximizing level of functional independence prior to discharge home with . The patient will have PT/OT ninety minutes per day, each discipline, five days a week for gait, strengthening, conditioning, balance, ADLs, any patient/family/caregiver training as necessary. Speech therapy to do cognitive assessment and treat as indicated. Rehabilitation nursing to assist with bowel, bladder, skin, wound care, medication administration, pain management. Waiter to assist with discharge planning, community reentry. SCD's for DVT prophylaxis. She appears to be well motivated to participate in three hours of therapy a day. She should be able to tolerate three hours of therapy a day from a medical standpoint. She should benefit from the three hours of therapy a day. She has a reasonable discharge plan, reasonable discharge rehabilitation goals and a supportive family. She has various comorbidities that need to be closely monitored with medications and treatments adjusted on a daily basis as needed. These include: see list Barriers to discharge for this patient who had been independent prior to this are for her to be modified independent to supervision for ADLs and mobility skills prior to discharge home with [family], so as to lessen the burden of the caregivers. Risks for this patient include: 1. Fall 2. Fracture 3. DVT 4. Pulmonary embolism 5. Wound infection 6. Skin breakdown 7. Contractures 8. Poorly controlled pain 9. Urinary retention 10. UTI 11. Respiratory infection 12. Aspiration Estimated Length of Stay: 14 days Prognosis: Rehab prognosis appears good for goal of discharge home with modified independent to supervision for ADLs and mobility skills. BRIGETTE LOPEZ DO Oct 06, 2018 09:32
--- NOTE | 2018-10-06 11:39 | ST Cognitive Linguistic Eval ---
Speech Evaluation-General Medical Diagnosis left hip fracture Onset Date: Oct 02, 2018 Therapy Diagnosis Therapy Diagnosis: Cognitive-Communication Precautions Precautions/Isolations: Fall Prevention, Standard Precautions, Pressure Ulcer Referral Referring Physician: Dr. Lopez Medical History Pertinent Medical History: Arthritis, HTN Reviewed History: Yes Social History Current Living Status: Spouse Speech PLF-Current Status Prior Level of Function The patient lived at home with her and was independent with all of her daily needs. Subjective The patient was pleasant and cooperative with the cognitive evaluation. Language Eval: Auditory Comprehends Simple Yes/No Ques: Functional Indent/Objects [place]: Functional Ident/Pics in [place]: Functional Follows 1-Step Commands: Functional Follows Complex Directions: Functional Follows General Conversations: Functional Language Eval: Verbal Language Completes Spontaneous Greeting: Functional Produces Auto, Serial Info: Functional Imitates Simple Words/Phrases: Functional Word Finding: Functional Requests Basic Needs: Functional States Basic Personal Info: Functional Expresses Complex Ideas: Functional Objective Cognitive Domain Attention: WNL Memory: WNL Problem Solving: Functional Executive Functions: WNL Visuospatial Skills: WNL Composite Severity Rating: WNL Clock Drawing Severity Rating: WNL Objective Formal/Standardized Tests [place] Cognitive Assessment (MOCA) Results Visuospatial/Executive: 5/5, Namin/3, Memory: Immediate 2/2, Delayed with cues 4/5, Attention: 6/6, Language: 3/3, Abstraction: 2/2, Orientation: 6/6 Oral Motor/Speech Production Within Functional Limits Impression The patient is a pleasant 78 year old female who was admitted to the ARU secondary to a fractured hip. The patient completed the MOCA in her room without difficulty. She scored within normal range for all areas of function. The patient does not warrant skilled ST at this time. Communication/Social Cognition Comprehension: 7 Expression: 7 Social Interaction: 7 Problem Solvin Memory: 7 Speech Patient Assess Expression of Ideas/Wants: Expression (4) Understanding Verbal Content: Understands (4) Brief Interview-Mental Status: Yes Repetition of Three Words: Three (3) Temporal Orientation: Year: Correct (3) Temporal Orientation: Month: Accurate within 5 days(2) Temporal Orientation: Day: Correct (1) Recall : Wear to say "Sock": Yes, no cue required (2) Recall : Color: Yes, no cue required (2) Recall : Bed: Yes,after cueing (1) Memory/Recall Ability: Current season, Location of own room, Staff names and faces, That he or she is in a hsp/hsp unit Speech-Plan Patient/Family Goals Patient/Family Goals: The patient plans to return home with her post rehab. Treatment Plan Speech Therapy Treatment Plan: Discontinue ST The patient does not require skilled ST at this time. Treatment Duration: Oct 06, 2018 Frequency: 1 time per week Estimated Hrs Per Day: .25 hour per day Rehab Potential: Fair Barriers to Learning: None identified Pt/Family Agrees to Plan: Yes Safety Risks/Education Teaching Recipient: Patient Teaching Methods: Discussion Response to Teaching: Verbalize Understanding Education Topics Provided: Safety within her room Time Speech Therapy Time In: 11:15 Speech Therapy Time Out: 11:30 Total Billed Time: 15 Billed Treatment Time 1, PRICE Parada Oct 06, 2018 11:39
--- NOTE | 2018-10-06 11:56 | Physical Therapy Daily Note ---
PT Daily Note-Current Subjective Pt. 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 Pt. c/o pain in hip at 7/10 Pain Numeric Pain Scale: 7 Location: Left Location Body Site: Hip Pain Description: Ache Appearance seated alignment laterally flexed to right with difficulty correcting Mental Status Patient Orientation: Person, Place, Time, Situation needs repeated instruction for TRF and gait Transfers Therapy Code Descriptions/Definitions Functional [place] Measure: 0=Not Assessed/NA 4=Minimal Assistance 1=Total Assistance 5=Supervision or Setup 2=Maximal Assistance 6=Modified [place] 3=Moderate Assistance 7=Complete [place] Therapy Quality Codes: 6 Independent with activity with or without an assistive device 5 Patient requires set up or clean up by helper. Patient completes activity by themselves 4 Supervision or touching assist (CGA). [place] provide cues , steadying assist 3 The helper provides less than half the effort to complete the activity 2 The helper provides more than half the effort to complete the activity 1 Dependent. The helper does all the effort to complete an activity 7 Patient refused to complete or attempt activity 9 The patient did not perform the activity before the current illness or injury 88 Not attempted due to Medical conditions or safety concerns Transfers (B, C, W/C) (FIM): 4 Scootin Rollin Supine to/from Sit: 4 Sit to/from Stand: 5 needed much work on chair approach for safety and technique, sits without having legs against chair and abandons FWW before safe to do so Weight Bearing Right Lower Extremity: Right Full Weight Bearing Left Lower Extremity: Left Touch Toe Bearing total hip precautions Gait Training Does the Patient Walk?: Yes Gait (FIM): 2 Distance (FIM): 0=653-90 ft (100x3, 50x2) Gait Level of Assist: 4 Gait Assistive Device: FWW pt. flexed over FWW, large sweeps with FWW forward with unpredictable step length and poor pattern, instructed in the safe pattern and step length as well as position in FWW with need for same cues every few feet Stair Training Stair Training: Handrails/: 2 handrails Stairs (FIM): 2 #of Steps: 4 Stairs: Pattern: Step to Level of Assist: 4 instruction for sequence and use of rails Exercises Supine Ex: Ankle pumps, Quad Set, Glut sets, Heel Slides, Short Arc Quads, Scooting, Straight leg raise (assist), Hip abd/add (assist) Supine Reps: 15 Seated Therapy Exercises: Ankle pumps, Sit to stand, Long arc quads Seated Reps: 15 NuStep Minutes: 10 NuStep Workload: 2 Assessment Current Status: Good Progress PT Short Term Goals Short Term Goals Time Frame: Oct 12, 2018 Transfers (B,C,W/C) (FIM): 4 Gait (FIM): 1 Gait Distance Comment: 20' Gait Level of Assist: 4 Gait Assistive Device: FWW PT Commercial Manager Goals Commercial Manager Goals PT Commercial Manager Goals Time Frame: October 26, 2018 Transfers (B,C,W/C) (FIM): 5 Sit to Lying (QC): 4 Lying-Sitting on Side/Bed(QC): 4 Sit to Stand (QC): 4 Rollin Roll Left to Right (QC): 4 Chair/Lxq-mw-Ueiqd Xfer(QC): 4 Car Transfer (QC): 4 Gait (FIM): 2 Distance: 50' Walk 10 feet (QC): 4 Walk 10ft-Uneven Surface(QC): 4 Walk 50ft with 2 Turns (QC): 4 Gait Level of Assist: 5 Gait Assistive Device: FWW Stairs (FIM): 1 # of Steps: 1 1 Step (curb) (QC): 4 Stairs Level Of Assist: 4 PT Plan Treatment/Plan Treatment Plan: Continue Plan of Care Treatment Plan: Bed Mobility, Education, Functional Activity Anitra, Functional Strength, Group Therapy, Gait, Safety, Therapeutic Exercise, Transfers Treatment Duration: October 26, 2018 Frequency: At least 5 of 7 days/Wk (IRF) Estimated Hrs Per Day: 1.5 hours per day Patient and/or Family Agrees t: Yes Safety Risks/Education Patient Education: Gait Training, Transfer Techniques, Steps, Correct Positioning, Disease Process, Safety Issues Teaching Recipient: Patient Teaching Methods: Demonstration, Discussion Response to Teaching: Verbalize Understanding, Return Demonstration, Reinforcement Needed Time/GCodes Time In: 1000 Time Out: 1100 Total Billed Treatment Time: 60 Total Billed Treatment 1,EX30m,GT30m G Codes Necessary: NATALIE Palacios HAND UPPER AND BOTTOM LACER Oct 06, 2018 11:56
--- NOTE | 2018-10-06 12:53 | Occupational Ther Daily Note ---
OT Current Status-Daily Note Subjective Pt in bed, agrees to treatment. Pt reports 6/10 left hip pain with movement. Mental Status/Objective Therapy Code Descriptions/Definitions Functional [place] Measure: 0=Not Assessed/NA 4=Minimal Assistance 1=Total Assistance 5=Supervision or Setup 2=Maximal Assistance 6=Modified [place] 3=Moderate Assistance 7=Complete [place] ADL-Treatment Pt declined shower this morning, but agrees to sponge bath. Supine to sit with moderate assistance and skilled cues for technique. Sit to stand and transfer to chair with minimal assistance using FWW. Requires cues for TTWB. Sponge bath completed while seated in chair. Doff shirt with SBA. Pt doffed pants using dressing stick. Pt completed upper body bathing with SBA. Pt able to wash bilateral upper legs and mitch area, but requires assist for lower legs/feet and buttocks. Don button up shirt with SBA. Reviewed use of adaptive equipment for LE dressing. Pt used sock folder to start Depends and pants over feet with minimal assistance. Stood with mod assist to pull pants up over hips. Pt uses FWW for balance with cues, but does not maintain WB status. Dons bilateral socks with moderate verbal cues using sock aid. Increased time required for bathing and dressing tasks. Pt completed grooming tasks while seated in chair. Pt brushed teeth and combed hair with set up. Pt sitting in chair with needs met after session. Therapy Code Descriptions/Definitions Functional [place] Measure: 0=Not Assessed/NA 4=Minimal Assistance 1=Total Assistance 5=Supervision or Setup 2=Maximal Assistance 6=Modified [place] 3=Moderate Assistance 7=Complete [place] Therapy Quality Codes: 6 Independent with activity with or without an assistive device 5 Patient requires set up or clean up by helper. Patient completes activity by themselves 4 Supervision or touching assist (CGA). [place] provide cues , steadying assist 3 The helper provides less than half the effort to complete the activity 2 The helper provides more than half the effort to complete the activity 1 Dependent. The helper does all the effort to complete an activity 7 Patient refused to complete or attempt activity 9 The patient did not perform the activity before the current illness or injury 88 Not attempted due to Medical conditions or safety concerns Grooming (FIM): 5 Oral Hygiene (QC): 5 Bathing (FIM): 3 Shower/Bathe Self (QC): 3 Upper Body (FIM): 5 Upper Body Dressing (QC): 4 Lower Body Dressing (FIM): 3 Lower Body Dressing (QC): 3 On/Off Footwear (QC): 3 OT Short Term Goals Short Term Goals Grooming(FIM): 5 Bathing(FIM): 5 Bathing Location: L Arm, R Arm, L Upper Leg, R Upper Leg, L Lower Leg ( including foot), R Lower Leg (including foot), Chest, Abdomen, Buttocks, Perineal Area Upper Body Dressing(FIM): 5 Lower Body Dressing(FIM): 5 Toileting(FIM): 5 Transfers (B,C,W/C) (FIM): 4 Toilet/Commode Transfer(FIM): 4 Tub Transfer(FIM): 4 1=Demonstrate adherence to instructed precautions during ADL tasks. 2=Patient will verbalize/demonstrate understanding of assistive devices/ modifications for ADL. 3=Patient will improve strength/tolerance for activity to enable patient to perform ADL's. OT Drapery Sewer Hand Goals Drapery Sewer Hand Goals Eating (FIM): 7 Eating (QC): 6 Groomin Oral Hygiene (QC): 6 Bathing(FIM): 6 Bathing Location: L Arm, R Arm, L Upper Leg, R Upper Leg, L Lower Leg ( including foot), R Lower Leg (including foot), Chest, Abdomen, Buttocks, Perineal Area Shower/Bathe Self (QC): 6 Upper Body Dressing(FIM): 6 Upper Body Dressing (QC): 6 Lower Body Dressing(FIM): 6 Lower Body Dressing (QC): 6 On/Off Footwear (QC): 6 Toileting(FIM): 6 Toileting Hygiene (QC): 6 Transfers (B,C,W/C) (FIM): 6 Toilet/Commode Transfer(FIM): 6 Toilet/Commode Transfer (QC): 6 Shower Transfer(FIM): 6 Additional Goals: 1-Demonstrate ADL Tasks, 2-Verbalize Understanding, 3- ImproveStrength/Anitra 1=Demonstrate adherence to instructed precautions during ADL tasks. 2=Patient will verbalize/demonstrate understanding of assistive devices/ modifications for ADL. 3=Patient will improve strength/tolerance for activity to enable patient to perform ADL's. OT Education/Plan Discharge Recommendations Plan/Recommendations: Continue POC Treatment Plan/Plan of Care Patient would benefit from OT for education, treatment and training to promote independence in ADL's, mobility, safety and/or upper extremity function for ADL' s. Plan of Care: ADL Retraining, Caregiver Training, Concurrent Therapy, Functional Mobility, Group Exercise/Act as Ind, UE Funct Exercise/Act Treatment Duration: November 02, 2018 Frequency: At least 5 of 7 days/Wk (IRF) Estimated Hrs Per Day: 1.5 hours per day Agreement: Yes Rehab Potential: Fair Time/GCodes Start Time: 09:00 Stop Time: 10:00 Total Time Billed (hr/min): 60 Billed Treatment Time 1 visit, ADLx4(60minutes) ALEX BRUCE OT Oct 06, 2018 12:53
--- NOTE | 2018-10-06 13:59 | Occupational Ther Daily Note ---
OT Current Status-Daily Note Subjective Pt resting in bed, agrees to therapy. Mental Status/Objective Therapy Code Descriptions/Definitions Functional [place] Measure: 0=Not Assessed/NA 4=Minimal Assistance 1=Total Assistance 5=Supervision or Setup 2=Maximal Assistance 6=Modified [place] 3=Moderate Assistance 7=Complete [place] ADL-Treatment Pt supine to sit with minimal assistance and increased time. Transfer to toilet with minimal assistance, skilled cues for safety and walker use. Pt required assist for clothing management, but was able to complete toileting hygiene. Pt requires cues for weight bearing status during mobility and while standing to complete clothing management. Pt also requires cues for safety and hand placement during sit to stand. Therapy Code Descriptions/Definitions Functional [place] Measure: 0=Not Assessed/NA 4=Minimal Assistance 1=Total Assistance 5=Supervision or Setup 2=Maximal Assistance 6=Modified [place] 3=Moderate Assistance 7=Complete [place] Therapy Quality Codes: 6 Independent with activity with or without an assistive device 5 Patient requires set up or clean up by helper. Patient completes activity by themselves 4 Supervision or touching assist (CGA). [place] provide cues , steadying assist 3 The helper provides less than half the effort to complete the activity 2 The helper provides more than half the effort to complete the activity 1 Dependent. The helper does all the effort to complete an activity 7 Patient refused to complete or attempt activity 9 The patient did not perform the activity before the current illness or injury 88 Not attempted due to Medical conditions or safety concerns Toileting (FIM): 2 Other Treatment To therapy gym via w/c. Pt complete arm bike activity x10 minutes to increase overall strength and activity tolerance needed for functional task completion. Pt completed task with minimal resistance and slow pace. No rest breaks needed. Pt returned to room and transferred to chair with minimal assistance using FWW. Pt sitting in chair with needs met after session. OT Short Term Goals Short Term Goals Grooming(FIM): 5 Bathing(FIM): 5 Bathing Location: L Arm, R Arm, L Upper Leg, R Upper Leg, L Lower Leg ( including foot), R Lower Leg (including foot), Chest, Abdomen, Buttocks, Perineal Area Upper Body Dressing(FIM): 5 Lower Body Dressing(FIM): 5 Toileting(FIM): 5 Transfers (B,C,W/C) (FIM): 4 Toilet/Commode Transfer(FIM): 4 Tub Transfer(FIM): 4 1=Demonstrate adherence to instructed precautions during ADL tasks. 2=Patient will verbalize/demonstrate understanding of assistive devices/ modifications for ADL. 3=Patient will improve strength/tolerance for activity to enable patient to perform ADL's. OT Imaging Manager Goals Imaging Manager Goals Eating (FIM): 7 Eating (QC): 6 Groomin Oral Hygiene (QC): 6 Bathing(FIM): 6 Bathing Location: L Arm, R Arm, L Upper Leg, R Upper Leg, L Lower Leg ( including foot), R Lower Leg (including foot), Chest, Abdomen, Buttocks, Perineal Area Shower/Bathe Self (QC): 6 Upper Body Dressing(FIM): 6 Upper Body Dressing (QC): 6 Lower Body Dressing(FIM): 6 Lower Body Dressing (QC): 6 On/Off Footwear (QC): 6 Toileting(FIM): 6 Toileting Hygiene (QC): 6 Transfers (B,C,W/C) (FIM): 6 Toilet/Commode Transfer(FIM): 6 Toilet/Commode Transfer (QC): 6 Shower Transfer(FIM): 6 Additional Goals: 1-Demonstrate ADL Tasks, 2-Verbalize Understanding, 3- ImproveStrength/Anitra 1=Demonstrate adherence to instructed precautions during ADL tasks. 2=Patient will verbalize/demonstrate understanding of assistive devices/ modifications for ADL. 3=Patient will improve strength/tolerance for activity to enable patient to perform ADL's. OT Education/Plan Discharge Recommendations Plan/Recommendations: Continue POC Treatment Plan/Plan of Care Patient would benefit from OT for education, treatment and training to promote independence in ADL's, mobility, safety and/or upper extremity function for ADL' s. Plan of Care: ADL Retraining, Caregiver Training, Concurrent Therapy, Functional Mobility, Group Exercise/Act as Ind, UE Funct Exercise/Act Treatment Duration: November 02, 2018 Frequency: At least 5 of 7 days/Wk (IRF) Estimated Hrs Per Day: 1.5 hours per day Agreement: Yes Rehab Potential: Fair Time/GCodes Start Time: 13:00 Stop Time: 13:30 Total Time Billed (hr/min): 30 Billed Treatment Time 1 visit, ADL(15minutes), EX(15 minutes) ALEX BRUCE OT Oct 06, 2018 13:59
--- NOTE | 2018-10-06 14:03 | Physical Therapy Daily Note ---
PT Daily Note-Current Subjective Pt. states she is very tired but hopes that working this hard will get her home faster. Agrees to Rx. Pain Location: No Pain Reported Mental Status pt. states she knows she has trouble remembering important things Transfers Therapy Code Descriptions/Definitions Functional [place] Measure: 0=Not Assessed/NA 4=Minimal Assistance 1=Total Assistance 5=Supervision or Setup 2=Maximal Assistance 6=Modified [place] 3=Moderate Assistance 7=Complete [place] Therapy Quality Codes: 6 Independent with activity with or without an assistive device 5 Patient requires set up or clean up by helper. Patient completes activity by themselves 4 Supervision or touching assist (CGA). [place] provide cues , steadying assist 3 The helper provides less than half the effort to complete the activity 2 The helper provides more than half the effort to complete the activity 1 Dependent. The helper does all the effort to complete an activity 7 Patient refused to complete or attempt activity 9 The patient did not perform the activity before the current illness or injury 88 Not attempted due to Medical conditions or safety concerns Transfers (B, C, W/C) (FIM): 3 pt. needs mod assist LEs in to bed as well as to scoot up in bed if she does not get in good position when entering bed Weight Bearing Right Lower Extremity: Right Full Weight Bearing Left Lower Extremity: Left Touch Toe Bearing total hip precautions Gait Training Does the Patient Walk?: Yes Gait Assistive Device: FWW much work on gait with TTWB left . pt. scoots FWW too far forward to keep FWW near her hips where she can wt bear on FWW adequately to keep wt off LLE. this HELIX COIL WINDER putting own foot under pts left to assess wt bearing, noted more like partial wt bearing Exercises Supine Ex: Ankle pumps, Quad Set, Heel Slides, Scooting, Hip abd/add Supine Reps: 10 Seated Therapy Exercises: Ankle pumps, Sit to stand, Long arc quads, Hip flexion (right only) Seated Reps: 12 Assessment Current Status: Good Progress PT Short Term Goals Short Term Goals Time Frame: Oct 12, 2018 Transfers (B,C,W/C) (FIM): 4 Gait (FIM): 1 Gait Distance Comment: 20' Gait Level of Assist: 4 Gait Assistive Device: FWW PT Long-Term Goals Admitting Officer Goals PT Admitting Officer Goals Time Frame: October 26, 2018 Transfers (B,C,W/C) (FIM): 5 Sit to Lying (QC): 4 Lying-Sitting on Side/Bed(QC): 4 Sit to Stand (QC): 4 Rollin Roll Left to Right (QC): 4 Chair/Nbk-rx-Mafsh Xfer(QC): 4 Car Transfer (QC): 4 Gait (FIM): 2 Distance: 50' Walk 10 feet (QC): 4 Walk 10ft-Uneven Surface(QC): 4 Walk 50ft with 2 Turns (QC): 4 Gait Level of Assist: 5 Gait Assistive Device: FWW Stairs (FIM): 1 # of Steps: 1 1 Step (curb) (QC): 4 Stairs Level Of Assist: 4 PT Plan Treatment/Plan Treatment Plan: Continue Plan of Care Treatment Plan: Bed Mobility, Education, Functional Activity Anitra, Functional Strength, Group Therapy, Gait, Safety, Therapeutic Exercise, Transfers Treatment Duration: October 26, 2018 Frequency: At least 5 of 7 days/Wk (IRF) Estimated Hrs Per Day: 1.5 hours per day Patient and/or Family Agrees t: Yes Safety Risks/Education Patient Education: Gait Training, Transfer Techniques, Correct Positioning, Disease Process, Safety Issues Teaching Recipient: Patient Teaching Methods: Demonstration, Discussion Response to Teaching: Verbalize Understanding, Return Demonstration, Reinforcement Needed Time/GCodes Time In: 1330 Time Out: 1400 Total Billed Treatment Time: 30 Total Billed Treatment 1,GT20m,EX10m G Codes Necessary: NATALIE Palacios HELIX COIL WINDER Oct 06, 2018 14:03
[2018-10-06] MEDS: BACLOFEN 10 MG (LIORESAL) TAB PO PRN (14:55)
[2018-10-06] MEDS: IRON SUCROSE 200 MG/10 ML (VENOFER) VIAL IV SCH (14:56)
--- NOTE | 2018-10-06 15:44 | Individualized Plan of Care ---
Individualized Plan of Care Rehab Nursing IPOC Order Admission Date Oct 05, 2018 at 10:35 Current Orders Orders Admission Arrival Bed Request (10/05/18 10:35) Code/Resuscitation (10/05/18 11:44) Abduction Pillow: Apply (Order (10/05/18 11:44) Incentive Spirometry (Nursing) Q2H (10/05/18 11:44) Notify Physician (10/05/18 11:44) Nursing Communication (Order) UD (10/05/18 11:44) Oxygen-Administer 07,19 (10/05/18 11:44) Sequential Compression Device 08,20 (10/05/18 11:44) Loi Hose 09,21 (10/05/18 11:44) Weight Bearing Status (10/05/18 11:44) General/Regular (10/05/18 Dinner) Alprazolam Tablet (Xanax Tablet) (10/05/18 11:45) Acetaminophen Tablet (Tylenol Tablet) (10/05/18 11:45) Atenolol Tablet (Tenormin Tablet) (10/06/18 09:00) Calcium Carbonate Chew Tablet (Antacid C (10/05/18 11:45) Docusate Sodium Capsule (Colace Capsule) (10/05/18 11:45) Hydrocodone/Apap 5/325 Tablet (Lortab 5 (10/05/18 11:45) Loratadine Tablet (Claritin Tablet) (10/06/18 09:00) Enoxaparin Injection (Lovenox Injection) (10/06/18 08:00) Melatonin Tablet (Melatonin Tablet) (10/05/18 21:00) [place] 3 Capsule (Fish Oil Capsule) (10/06/18 07:00) Ondansetron Injection (Zofran Injectio (10/05/18 11:45) Polyethylene Glycol Powder Pkt (Miralax (10/05/18 21:00) Therapeutic Multivitamin Tab (Vitamins, (10/06/18 07:00) Tolterodine La Capsule (Detrol La Capsul (10/06/18 09:00) Tolterodine La Capsule (Detrol La Capsul (10/05/18 21:00) Diphenhydramine Tablet (Benadryl Tablet) (10/05/18 11:45) Fentanyl Injection (Sublimaze Injection (10/05/18 11:45) Tramadol Tablet (Ultram Tablet) (10/05/18 11:45) Case Management Consult (10/05/18 11:44) Admission Order(Inpt,Obs,Sdc) (10/05/18 11:44) Cow Tender-Inpt Rehab Con (10/05/18 11:44) Rehab Nursing Orders-Ipoc (10/05/18 11:44) Physical Therapy Rehab Orders (10/05/18 11:44) Occupational Therapy Rehab Ord (10/05/18 11:44) Speech Therapy Rehab Orders (10/05/18 11:44) Weekly Weight (Lbs) WEEK (10/05/18 11:44) Rehab-Intensity Of Therapy (10/05/18 11:44) Initiate Admission Nursing Pro .admission (10/05/18 11:44) Cbc With Automated Diff (10/06/18 06:00) Comprehensive Metabolic Panel (10/06/18 06:00) Admission Arrival Bed Request (10/05/18 10:35) Patient Visit (10/05/18 ) Pt Eval Moderate Complexity (10/05/18 ) Functional Activities, Ea 15 (10/05/18 ) Patient Visit (10/05/18 ) Therapeutic, Group (10/05/18 ) Ambulate 08,12,20 (10/05/18 18:38) Sequential Compression Device 08,20 (10/05/18 18:38) Dvt/Vte Risk - Notifiy Physici 08 (10/05/18 18:38) Iron Sucrose Injection (Venofer Injectio (10/06/18 10:37) Baclofen Tablet (Lioresal Tablet) (10/06/18 10:45) Patient Visit (10/06/18 ) Exercise Therap, Ea 15 Min (10/06/18 ) Gait Training, Ea 15 Min (10/06/18 ) Patient Visit (10/06/18 ) Speech Sound Lang Comp (10/06/18 ) Rehab Nursing Orders: Ongoing Assess. of Function Status Intensity of Therapy to be met Patient to be seen: Min.3h per day/5 of 7d PT IPOC Problem List: Activity Tolerance, Functional Strength, Safety, Balance, Gait, Transfer, Bed Mobility, ROM Treatment Plan: Continue Plan of Care Bed Mobility, Education, Functional Activity Anitra, Functional Strength, Group Therapy, Gait, Safety, Therapeutic Exercise, Transfers Treatment Duration: October 26, 2018 Frequency: At least 5 of 7 days/Wk (IRF) Estimated Hrs Per Day: 1.5 hours per day OT IPOC Problems: Decreased Activ Tolerance, Decreased Safety Aware, Decreased UE Strength, Dependent Transfers, Impaired Bed Mobility, Impaired Cognition, Impaired Coordination, Impaired Funct Balance, Impaired I ADL's, Impaired Self- Care Skills OT Treatment, Training and Edu: Yes Plan of Care: ADL Retraining, Caregiver Training, Concurrent Therapy, Functional Mobility, Group Exercise/Act as Ind, UE Funct Exercise/Act Treatment Duration: November 02, 2018 Frequency: At least 5 of 7 days/Wk (IRF) Estimated Hrs Per Day: 1.[address] IPOC Speech Therapy Treatment Plan: Discontinue ST Treatment Duration: Oct 06, 2018 Frequency: 1 time per week Estimated Hrs Per Day: .25 hour per day Cow Tender/Case Mgmt Cow Tender/Case Managemen: Discharge Planning Dietitian/Sales Expert Dietitian/Sales Expert to monitor nutritional status and make changes and/or recommendations as needed and work with speech pathology on dietary upgrades as the occur. Physician IPOC Medical Issues being managed closely and that require the 24 hour availability of a physician: Patient with bowel dysfunction and need for DVT prophylaxis and on toe-touch with major fall risk Smoking history will require close monitoring of any type of COPD or lung disease conditions Medical Issues: Bowel/Bladder Function, DVT Prophylaxis, Falls Precautions, Fluid/Electrolyte/Nutrition Balance, Pain Management Brief Synthesis of Preadmission Screen, Post-Admission Evaluation, and Therapy Evaluations: Physical therapy will educate on toe-touch ambulation and the use of walker and fall prevention Occupational therapy will focus on ADL independent and overall strengthening Medical Prognosis: Good Anticipated Length of Stay: 7 days LUIS FELIPE COREAS DO Oct 06, 2018 15:44
[2018-10-06 16:42] VITALS: BP 117/67
--- NOTE | 2018-10-06 19:21 | NUR ---
bedside report received from GEORGIE HU, assume care of pt
[2018-10-06] MEDS: TOLTERODINE LA 2 MG (DETROL LA) CAP PO SCH (20:35)
--- NOTE | 2018-10-06 20:36 | NUR ---
c/o lt hip pain level 5/10 on numeric scale, Lortab 5 1 tab po given
[2018-10-06] MEDS: MELATONIN 3 MG TABLET PO SCH (20:39)
--- NOTE | 2018-10-06 21:00 | NUR ---
assessments & interventions completed, see assessments & interventions, pt refused miralax 34 grams tonight
--- NOTE | 2018-10-06 21:20 | NUR ---
resting quietly in bed, pain level 0/10 on flacc scale
[2018-10-07 05:39] VITALS: BP 139/75
[2018-10-07] MEDS: MULTIVIT W/MINERALS TAB (THERAGRAN M) PO SCH (06:52)
[2018-10-07] MEDS: OMEGA 3 (FISH OIL) 1000 MG CAP PO SCH (06:52)
--- NOTE | 2018-10-07 07:09 | NUR ---
bedside report given to KATE HU
[2018-10-07] MEDS: ATENOLOL 50 MG (TENORMIN) TAB PO SCH (08:09)
[2018-10-07] MEDS: POLYETHYLENE GLYCOL 17 GM (MIRALAX) PACK PO SCH ×2 (08:09→20:46)
[2018-10-07] MEDS: TOLTERODINE LA 4 MG (DETROL) CAP PO SCH (08:09)
[2018-10-07] MEDS: ENOXAPARIN 40 MG/0.4 ML (LOVENOX) SYR SC SCH (08:09)
[2018-10-07] MEDS: LORATADINE (CLARITIN) 10 MG TAB PO SCH (08:09)
[2018-10-07 08:14] VITALS: BP 149/69
[2018-10-07] MEDS: HYDROcodone/APAP 5 MG/325 MG (LORTAB) TAB PO PRN ×3 (08:56→20:49)
--- NOTE | 2018-10-07 09:01 | Physical Therapy Daily Note ---
PT Daily Note-Current Subjective Pt up in chair, agreeable. Pt sleepy, requiring frequent VCS to attend to task. Pain Numeric Pain Scale: 2 Location: Left Location Body Site: Hip Pain Description: Ache Mental Status Patient Orientation: Person Attachments: SCD's Transfers Therapy Code Descriptions/Definitions Functional [place] Measure: 0=Not Assessed/NA 4=Minimal Assistance 1=Total Assistance 5=Supervision or Setup 2=Maximal Assistance 6=Modified [place] 3=Moderate Assistance 7=Complete [place] Therapy Quality Codes: 6 Independent with activity with or without an assistive device 5 Patient requires set up or clean up by helper. Patient completes activity by themselves 4 Supervision or touching assist (CGA). [place] provide cues , steadying assist 3 The helper provides less than half the effort to complete the activity 2 The helper provides more than half the effort to complete the activity 1 Dependent. The helper does all the effort to complete an activity 7 Patient refused to complete or attempt activity 9 The patient did not perform the activity before the current illness or injury 88 Not attempted due to Medical conditions or safety concerns Supine to/from Sit: 4 (assist with (L) LE into bed) Sit to/from Stand: 5 (VCS for safety, sequencing) Sit to Lying (QC): 3 Sit to Stand (QC): 4 Weight Bearing Right Lower Extremity: Right Full Weight Bearing Left Lower Extremity: Left Touch Toe Bearing total hip precautions Gait Training Does the Patient Walk?: Yes Distance (FIM): 9=191-44 ft Distance: 50 Walk 10 feet (QC): 4 Walk 50 ft with 2 Turns(QC): 4 Gait Level of Assist: 4 Gait Persons Needed: 1 Gait Assistive Device: FWW Pt ambulates with flexed posture, step-through gait. Max skilled VCS and tactile cues for TTWB on (L) but Pt more consistently performs PWB on (L). Exercises Supine Ex: Ankle pumps, Quad Set, Glut sets, Heel Slides Supine Reps: 15 Treatments Gait training with FWW, TTWB on (L). Supine LE exercises. Pt in bed with rails up, SCDs in place, needs met. Notified nursing of request for pain meds post treatment. Assessment Current Status: Fair Progress Pt tolerated fair-well. Groggy, tired this date. Pt unable to maintain TTWB despite max VCS, tactile cues. PT Short Term Goals Short Term Goals Time Frame: Oct 12, 2018 Transfers (B,C,W/C) (FIM): 4 Gait (FIM): 1 Gait Distance Comment: 20' Gait Level of Assist: 4 Gait Assistive Device: FWW PT Skilled Nursing Goals Paper Bag Making Machinist Goals PT Paper Bag Making Machinist Goals Time Frame: October 26, 2018 Transfers (B,C,W/C) (FIM): 5 Sit to Lying (QC): 4 Lying-Sitting on Side/Bed(QC): 4 Sit to Stand (QC): 4 Rollin Roll Left to Right (QC): 4 Chair/Yqs-gx-Gavcr Xfer(QC): 4 Car Transfer (QC): 4 Gait (FIM): 2 Distance: 50' Walk 10 feet (QC): 4 Walk 10ft-Uneven Surface(QC): 4 Walk 50ft with 2 Turns (QC): 4 Gait Level of Assist: 5 Gait Assistive Device: FWW Stairs (FIM): 1 # of Steps: 1 1 Step (curb) (QC): 4 Stairs Level Of Assist: 4 PT Plan Problem List Problem List: Activity Tolerance, Functional Strength, Safety, Balance, Gait, Transfer, Bed Mobility, ROM Treatment/Plan Treatment Plan: Continue Plan of Care Treatment Plan: Bed Mobility, Education, Functional Activity Anitra, Functional Strength, Group Therapy, Gait, Safety, Therapeutic Exercise, Transfers Treatment Duration: October 26, 2018 Frequency: At least 5 of 7 days/Wk (IRF) Estimated Hrs Per Day: 1.5 hours per day Patient and/or Family Agrees t: Yes Safety Risks/Education Patient Education: Gait Training Teaching Recipient: Patient Teaching Methods: Demonstration, Discussion Response to Teaching: Reinforcement Needed Time/GCodes Time In: 827 Time Out: 852 Total Billed Treatment Time: 25 Total Billed Treatment 1, GT x 15', Ex x 10' G Codes Necessary: LEELEE Calderon DPBasim Oct 07, 2018 09:01
--- NOTE | 2018-10-07 11:51 | PM&R Progress Note ---
Subjective HPI/CC On Admission Date Seen by Provider: Oct 07, 2018 Time Seen by Provider: 11:00 CC: Left hip fracture with debility HPI: This is an 78-year-old white female patient of Dr. Bello who presented to inpatient rehab after an uncomplicated left hip fracture repair by Dr Mccord. She will need to work on ambulation with walker and obtain return of independent ADL's in order to return home with her . She did not require a transfusion while on acute floor but does require iron infusion due to low iron level with low hemoglobin. Checked meds and labs and therapy notes. Patient has improved pain on pain meds. No chest pain or dyspnea. Reviewed list of diagnosis. PLOF was independent an currently 1 person assist. Subjective/Events-last exam Patient feels good today and feels stronger Less pain reported from the hip Venofer maintained for iron def anemia Therapy noted reviewed Very subtle confusion at times Ultram DC Lortab given and that helps with the pain APAP for mild pain ordered Bowels are moving K-pad will be used for right trapezium muscle spasm Review of Systems Musculoskeletal: arm pain, leg pain Objective Exam Vital Signs Vital Signs Date Time Temp Pulse Resp B/P (MAP) Pulse Ox O2 Delivery O2 Flow Rate FiO2 10/07/18 09:25 Room Air 10/07/18 08:14 72 149/69 (95) 10/07/18 05:39 97.9 18 95 Capillary Refill : Less Than 3 Seconds General Appearance: No Apparent Distress, WD/WN, Chronically ill, Thin HEENT: PERRL/EOMI, Normal ENT Inspection, Pharynx Normal, Moist Mucous Membranes Neck: Full Range of Motion, Normal Inspection, Non Tender, Supple Respiratory: Chest Non Tender, Lungs Clear, Normal Breath Sounds, No Accessory Muscle Use, No Respiratory Distress Cardiovascular: Regular Rate, Rhythm, No Edema, No Gallop, No JVD, No Murmur Gastrointestinal: Normal Bowel Sounds, No Organomegaly, No Pulsatile Mass, Non Tender, Soft Back: Normal Inspection, No CVA Tenderness, No Vertebral Tenderness Extremity: Normal Capillary Refill, Normal Inspection, Normal Range of Motion ( decreased ROM left leg), Non Tender, No Calf Tenderness, No Pedal Edema Neurologic/Psychiatric: Alert, Oriented x3, No Motor/Sensory Deficits, Normal Mood/Affect Skin: Normal Color, Warm/Dry Lymphatic: No Adenopathy Results/Procedures Lab Patient resulted labs reviewed. FIM Transfers Therapy Code Descriptions/Definitions Functional [place] Measure: 0=Not Assessed/NA 4=Minimal Assistance 1=Total Assistance 5=Supervision or Setup 2=Maximal Assistance 6=Modified [place] 3=Moderate Assistance 7=Complete [place] Therapy Quality Codes: 6 Independent with activity with or without an assistive device 5 Patient requires set up or clean up by helper. Patient completes activity by themselves 4 Supervision or touching assist (CGA). [place] provide cues , steadying assist 3 The helper provides less than half the effort to complete the activity 2 The helper provides more than half the effort to complete the activity 1 Dependent. The helper does all the effort to complete an activity 7 Patient refused to complete or attempt activity 9 The patient did not perform the activity before the current illness or injury 88 Not attempted due to Medical conditions or safety concerns Gait Training Does the Patient Walk?: Yes Distance (FIM): 1=up to 49 ft Gait Assistive Device: FWW Wheelchair Training Does the Pt Use a Wheelchair?: No Mental Status/Objective Comprehension: 7 Expression: 7 Social Interaction: 7 Problem Solvin Memory: 7 ADL-Treatment Feedin Eating (QC): 6 Groomin Oral Hygiene (QC): 5 Bathin Shower/Bathe Self (QC): 3 Upper Extremity Dressin Upper Body Dressing (QC): 4 Lower Extremity Dressin Lower Body Dressing (QC): 3 On/Off Footwear (QC): 3 Toiletin Toileting Hygiene (QC): 1 Toilet/Commode Transfer: 3 Toilet Transfer (QC): 2 Shower: 0 (refused) Assessment/Plan Assessment and Plan Assess & Plan/Chief Complaint (1) Hip fracture, left s/p repair Status: Acute (2) Hypertension Status: Chronic (3) Osteoarthritis Status: Chronic (4) Insomnia Status: Chronic (5) History of humerus fracture Status: Chronic (6) History of bowel resection Status: Chronic (7) Overactive bladder Status: Chronic (8) Acute blood loss anemia Status: Acute Plan: IRF protocol Return to independent activity prior to DC home with his Monitor subtle confusion Pain control Venofer Kpad for left trapezium muscle spasm Baclofen (1) Hip fracture, left (2) Insomnia (3) Acute blood loss anemia (4) Humeral fracture (5) Osteoarthritis (6) Hypertension (7) Overactive bladder (8) History of humerus fracture (9) History of bowel resection LUIS FELIPE COREAS DO Oct 07, 2018 11:51
[2018-10-07 17:50] VITALS: BP 131/66
--- NOTE | 2018-10-07 19:15 | NUR ---
bedside report received from KATE HU, assume care of pt
[2018-10-07] MEDS: MELATONIN 3 MG TABLET PO SCH (20:45)
[2018-10-07] MEDS: TOLTERODINE LA 2 MG (DETROL LA) CAP PO SCH (20:45)
--- NOTE | 2018-10-07 20:49 | NUR ---
c/o pain to lt hip level 2/10 on numeric scale, lortab 5 1 tab po given, pt took miralax 1 package instead of 2
--- NOTE | 2018-10-07 21:00 | NUR ---
assessments & interventions completed, see assessments & interventions, back to bed with 1 person assist, walker & gait belt
--- NOTE | 2018-10-07 21:35 | NUR ---
rates pain at 0/10 on numeric scale
[2018-10-08] MEDS: HYDROcodone/APAP 5 MG/325 MG (LORTAB) TAB PO PRN ×4 (03:38→20:29)
--- NOTE | 2018-10-08 03:38 | NUR ---
c/o lt hip pain level 6/10 on numeric scale, lortab 5 1 tab po given
--- NOTE | 2018-10-08 04:10 | NUR ---
resting quietly in bed, pain level 0/10 on flacc scale
[2018-10-08] MEDS: MULTIVIT W/MINERALS TAB (THERAGRAN M) PO SCH (06:24)
[2018-10-08] MEDS: OMEGA 3 (FISH OIL) 1000 MG CAP PO SCH (06:24)
[2018-10-08 06:25] VITALS: BP 105/61
--- NOTE | 2018-10-08 07:18 | NUR ---
bedside report given to GELY HU
[2018-10-08] MEDS: LORATADINE (CLARITIN) 10 MG TAB PO SCH (08:42)
[2018-10-08] MEDS: ATENOLOL 50 MG (TENORMIN) TAB PO SCH (08:42)
[2018-10-08] MEDS: TOLTERODINE LA 4 MG (DETROL) CAP PO SCH (08:42)
[2018-10-08] MEDS: POLYETHYLENE GLYCOL 17 GM (MIRALAX) PACK PO SCH ×2 (08:42→20:32)
[2018-10-08] MEDS: ENOXAPARIN 40 MG/0.4 ML (LOVENOX) SYR SC SCH (08:43)
[2018-10-08] MEDS: IRON SUCROSE 200 MG/10 ML (VENOFER) VIAL IV SCH (10:42)
--- NOTE | 2018-10-08 11:28 | PM&R Progress Note ---
Subjective HPI/CC On Admission Date Seen by Provider: Oct 08, 2018 Time Seen by Provider: 08:45 CC: Left hip fracture with debility HPI: This is an 78-year-old white female patient of Dr. Bello who presented to inpatient rehab after an uncomplicated left hip fracture repair by Dr Mccord. She will need to work on ambulation with walker and obtain return of independent ADL's in order to return home with her . She did not require a transfusion while on acute floor but does require iron infusion due to low iron level with low hemoglobin. Checked meds and labs and therapy notes. Patient has improved pain on pain meds. No chest pain or dyspnea. Reviewed list of diagnosis. PLOF was independent an currently 1 person assist. Subjective/Events-last exam Patient feels better today and feels stronger every day since the hip fracture Less pain reported from the hip but does take pain meds regularly Venofer maintained for iron def anemia and that seems to be helping recovery Therapy noted reviewed from yesterday Very subtle confusion at times ut clearer thought processes in the past 2 days Ultram DC since it was not effective Lortab to be maintained at the current regimen Bowels are moving K-pad will be used for right trapezium muscle spasm and that seems to be of help Review of Systems Musculoskeletal: leg pain Objective Exam Vital Signs Vital Signs Date Time Temp Pulse Resp B/P (MAP) Pulse Ox O2 Delivery O2 Flow Rate FiO2 10/08/18 09:00 Room Air 10/08/18 06:25 98.8 74 20 105/61 (76) 94 Capillary Refill : Less Than 3 Seconds General Appearance: No Apparent Distress, WD/WN, Chronically ill, Thin HEENT: PERRL/EOMI, Normal ENT Inspection, Pharynx Normal, Moist Mucous Membranes Neck: Full Range of Motion, Normal Inspection, Non Tender, Supple Respiratory: Chest Non Tender, Lungs Clear, Normal Breath Sounds, No Accessory Muscle Use, No Respiratory Distress Cardiovascular: Regular Rate, Rhythm, No Edema, No Gallop, No JVD, No Murmur Gastrointestinal: Normal Bowel Sounds, No Organomegaly, No Pulsatile Mass, Non Tender, Soft Back: Normal Inspection, No CVA Tenderness, No Vertebral Tenderness Extremity: Normal Capillary Refill, Normal Inspection, Normal Range of Motion ( decreased ROM left leg), Non Tender, No Calf Tenderness, No Pedal Edema Neurologic/Psychiatric: Alert, Oriented x3, No Motor/Sensory Deficits, Normal Mood/Affect Skin: Normal Color, Warm/Dry Lymphatic: No Adenopathy Results/Procedures Lab Patient resulted labs reviewed. FIM Transfers Therapy Code Descriptions/Definitions Functional [place] Measure: 0=Not Assessed/NA 4=Minimal Assistance 1=Total Assistance 5=Supervision or Setup 2=Maximal Assistance 6=Modified [place] 3=Moderate Assistance 7=Complete [place] Therapy Quality Codes: 6 Independent with activity with or without an assistive device 5 Patient requires set up or clean up by helper. Patient completes activity by themselves 4 Supervision or touching assist (CGA). [place] provide cues , steadying assist 3 The helper provides less than half the effort to complete the activity 2 The helper provides more than half the effort to complete the activity 1 Dependent. The helper does all the effort to complete an activity 7 Patient refused to complete or attempt activity 9 The patient did not perform the activity before the current illness or injury 88 Not attempted due to Medical conditions or safety concerns Gait Training Does the Patient Walk?: Yes Distance (FIM): 1=up to 49 ft Gait Assistive Device: FWW Wheelchair Training Does the Pt Use a Wheelchair?: No Mental Status/Objective Comprehension: 7 Expression: 7 Social Interaction: 7 Problem Solvin Memory: 7 ADL-Treatment Feedin Eating (QC): 6 Groomin Oral Hygiene (QC): 5 Bathin Shower/Bathe Self (QC): 3 Upper Extremity Dressin Upper Body Dressing (QC): 4 Lower Extremity Dressin Lower Body Dressing (QC): 3 On/Off Footwear (QC): 3 Toiletin Toileting Hygiene (QC): 1 Toilet/Commode Transfer: 3 Toilet Transfer (QC): 2 Shower: 0 (refused) Assessment/Plan Assessment and Plan Assess & Plan/Chief Complaint (1) Hip fracture, left s/p repair Status: Acute (2) Hypertension Status: Chronic (3) Osteoarthritis Status: Chronic (4) Insomnia Status: Chronic (5) History of humerus fracture Status: Chronic (6) History of bowel resection Status: Chronic (7) Overactive bladder Status: Chronic (8) Acute blood loss anemia Status: Acute Plan: IRF protocol Return to independent activity prior to DC home with his Monitor subtle confusion but it seems to be clearing Pain control with Lortab Venofer until completed 1 gram of iron Kpad for left trapezium muscle spasm prn Baclofen seems to be helping also (1) Hip fracture, left (2) Insomnia (3) Acute blood loss anemia (4) Humeral fracture (5) Osteoarthritis (6) Hypertension (7) Overactive bladder (8) History of humerus fracture (9) History of bowel resection LUIS FELIPE COREAS DO Oct 08, 2018 11:27
[2018-10-08 17:21] VITALS: BP 110/63
--- NOTE | 2018-10-08 19:14 | NUR ---
bedside report received from GELY HU, assume care of pt
[2018-10-08] MEDS: TOLTERODINE LA 2 MG (DETROL LA) CAP PO SCH (20:29)
--- NOTE | 2018-10-08 20:29 | NUR ---
c/o lt hip pain, level 5/10 on numeric scale, lortab 5 1 tab po given, refused miralax
[2018-10-08] MEDS: MELATONIN 3 MG TABLET PO SCH (20:31)
--- NOTE | 2018-10-08 21:00 | NUR ---
assessments & interventions completed, see assessments & interventions, c/o lt muscle ache just above knee, warm blanket given
--- NOTE | 2018-10-08 21:07 | NUR ---
pain level 2/10 on numeric scale
[2018-10-09] MEDS: HYDROcodone/APAP 5 MG/325 MG (LORTAB) TAB PO PRN ×3 (01:55→13:31)
--- NOTE | 2018-10-09 01:55 | NUR ---
c/o lt hip pain level 6/10 on numeric scale, Lortab 5 1 tab po given
--- NOTE | 2018-10-09 02:30 | NUR ---
resting quietly in bed, pain level 0/10 on flacc scale
[2018-10-09 06:05] VITALS: BP 168/78
[2018-10-09] MEDS: OMEGA 3 (FISH OIL) 1000 MG CAP PO SCH (06:42)
[2018-10-09] MEDS: MULTIVIT W/MINERALS TAB (THERAGRAN M) PO SCH (06:43)
--- NOTE | 2018-10-09 07:07 | NUR ---
bedside report given to KATE HU
[2018-10-09 07:45] VITALS: BP 134/72
[2018-10-09] MEDS: ATENOLOL 50 MG (TENORMIN) TAB PO SCH (07:47)
[2018-10-09] MEDS: TOLTERODINE LA 4 MG (DETROL) CAP PO SCH (07:47)
[2018-10-09] MEDS: LORATADINE (CLARITIN) 10 MG TAB PO SCH (07:47)
[2018-10-09] MEDS: POLYETHYLENE GLYCOL 17 GM (MIRALAX) PACK PO SCH (07:47)
[2018-10-09] MEDS: ENOXAPARIN 40 MG/0.4 ML (LOVENOX) SYR SC SCH (07:48)
--- NOTE | 2018-10-09 08:14 | PM&R Progress Note ---
Subjective HPI/CC On Admission Date Seen by Provider: Oct 09, 2018 Time Seen by Provider: 08:15 CC: Left hip fracture with debility HPI: This is an 78-year-old white female patient of Dr. Bello who presented to inpatient rehab after an uncomplicated left hip fracture repair by Dr Mccord. She will need to work on ambulation with walker and obtain return of independent ADL's in order to return home with her . She did not require a transfusion while on acute floor but does require iron infusion due to low iron level with low hemoglobin. Checked meds and labs and therapy notes. Patient has improved pain on pain meds. No chest pain or dyspnea. Reviewed list of diagnosis. PLOF was independent an currently 1 person assist. Subjective/Events-last exam Having some loose stools so will hold bowel regimen Repeating cues because she sometimes gets confused whether to use her toe and heel and she actually talked to me about that after the nurse had told me that before I rounded on her Pain is controlled with oral meds Overall participating in all therapies and will ultimately go home with her Tolerating Venofer iron infusions Reviewed RN notes and therapy notes Review of Systems General: Fatigue Musculoskeletal: leg pain Objective Exam Vital Signs Vital Signs Date Time Temp Pulse Resp B/P (MAP) Pulse Ox O2 Delivery O2 Flow Rate FiO2 10/09/18 16:22 97.9 67 16 135/67 (89) 92 Room Air Capillary Refill : Less Than 3 Seconds General Appearance: No Apparent Distress, WD/WN, Chronically ill, Thin HEENT: PERRL/EOMI, Normal ENT Inspection, Pharynx Normal, Moist Mucous Membranes Neck: Full Range of Motion, Normal Inspection, Non Tender, Supple Respiratory: Chest Non Tender, Lungs Clear, Normal Breath Sounds, No Accessory Muscle Use, No Respiratory Distress Cardiovascular: Regular Rate, Rhythm, No Edema, No Gallop, No JVD, No Murmur Gastrointestinal: Normal Bowel Sounds, No Organomegaly, No Pulsatile Mass, Non Tender, Soft Back: Normal Inspection, No CVA Tenderness, No Vertebral Tenderness Extremity: Normal Capillary Refill, Normal Inspection, Normal Range of Motion ( decreased ROM left leg), Non Tender, No Calf Tenderness, No Pedal Edema Neurologic/Psychiatric: Alert, Oriented x3, No Motor/Sensory Deficits, Normal Mood/Affect Skin: Normal Color, Warm/Dry Lymphatic: No Adenopathy Results/Procedures Lab Patient resulted labs reviewed. FIM Transfers Therapy Code Descriptions/Definitions Functional [place] Measure: 0=Not Assessed/NA 4=Minimal Assistance 1=Total Assistance 5=Supervision or Setup 2=Maximal Assistance 6=Modified [place] 3=Moderate Assistance 7=Complete [place] Therapy Quality Codes: 6 Independent with activity with or without an assistive device 5 Patient requires set up or clean up by helper. Patient completes activity by themselves 4 Supervision or touching assist (CGA). [place] provide cues , steadying assist 3 The helper provides less than half the effort to complete the activity 2 The helper provides more than half the effort to complete the activity 1 Dependent. The helper does all the effort to complete an activity 7 Patient refused to complete or attempt activity 9 The patient did not perform the activity before the current illness or injury 88 Not attempted due to Medical conditions or safety concerns Gait Training Does the Patient Walk?: Yes Distance (FIM): 1=up to 49 ft Gait Assistive Device: FWW Wheelchair Training Does the Pt Use a Wheelchair?: No Mental Status/Objective Comprehension: 7 Expression: 7 Social Interaction: 7 Problem Solvin Memory: 7 ADL-Treatment Feedin Eating (QC): 6 Groomin Oral Hygiene (QC): 5 Bathin Shower/Bathe Self (QC): 3 Upper Extremity Dressin Upper Body Dressing (QC): 4 Lower Extremity Dressin Lower Body Dressing (QC): 3 On/Off Footwear (QC): 3 Toiletin Toileting Hygiene (QC): 1 Toilet/Commode Transfer: 3 Toilet Transfer (QC): 2 Shower: 0 (refused) Assessment/Plan Assessment and Plan Assess & Plan/Chief Complaint (1) Hip fracture, left s/p repair Status: Acute (2) Hypertension Status: Chronic (3) Osteoarthritis Status: Chronic (4) Insomnia Status: Chronic (5) History of humerus fracture Status: Chronic (6) History of bowel resection Status: Chronic (7) Overactive bladder Status: Chronic (8) Acute blood loss anemia Status: Acute Plan: IRF protocol Return to independent activity prior to DC home with his Monitor subtle confusion but it seems to be clearing Pain control with Lortab Venofer until completed 1 gram of iron Kpad for left trapezium muscle spasm prn Baclofen seems to be helping also Monitor subtle confusion (1) Hip fracture, left (2) Insomnia (3) Acute blood loss anemia (4) Humeral fracture (5) Osteoarthritis (6) Hypertension (7) Overactive bladder (8) History of humerus fracture (9) History of bowel resection LUIS FELIPE COREAS DO Oct 09, 2018 08:14
--- NOTE | 2018-10-09 10:55 | NUR ---
Pastoral care visit.
--- NOTE | 2018-10-09 11:44 | Occupational Ther Daily Note ---
OT Current Status-Daily Note Subjective No pain reported. Appearance Pt. in bed. Agrees to work with OT. Mental Status/Objective Patient Orientation: Person, Place Therapy Code Descriptions/Definitions Functional [place] Measure: 0=Not Assessed/NA 4=Minimal Assistance 1=Total Assistance 5=Supervision or Setup 2=Maximal Assistance 6=Modified [place] 3=Moderate Assistance 7=Complete [place] ADL-Treatment Therapy Code Descriptions/Definitions Functional [place] Measure: 0=Not Assessed/NA 4=Minimal Assistance 1=Total Assistance 5=Supervision or Setup 2=Maximal Assistance 6=Modified [place] 3=Moderate Assistance 7=Complete [place] Therapy Quality Codes: 6 Independent with activity with or without an assistive device 5 Patient requires set up or clean up by helper. Patient completes activity by themselves 4 Supervision or touching assist (CGA). [place] provide cues , steadying assist 3 The helper provides less than half the effort to complete the activity 2 The helper provides more than half the effort to complete the activity 1 Dependent. The helper does all the effort to complete an activity 7 Patient refused to complete or attempt activity 9 The patient did not perform the activity before the current illness or injury 88 Not attempted due to Medical conditions or safety concerns Grooming (FIM): 5 (Set up at sink to brush hair and teeth.) Oral Hygiene (QC): 4 Bathing (FIM): 3 (Pt. requires assistance in shower to wash bilateral LE. CGA in stance to wash rear mitch area.) Shower/Bathe Self (QC): 3 Upper Body (FIM): 5 Upper Body Dressing (QC): 4 Lower Body Dressing (FIM): 3 (Pt. able to don brief, pants, and slipper socks with AE. Increased time and cues needed.) Lower Body Dressing (QC): 3 On/Off Footwear (QC): 2 (With sock aide.) Toileting (FIM): 2 (Pt. incontinent of bowel. Unaware that she was. Noted loose stool in brief when standing. Pt. attempted to cleanse self, but OT did go over this to make sure she was clean. This happened several times throughout treatment.) Toileting Hygiene (QC): 2 Transfers (B, C, W/C) (FIM): 4 (Min assist supine-sit. Min assist sit-stand and stand-sit.) Toilet/Commode Transfer (FIM): 4 Toilet Transfer (QC): 4 Shower Transfer(FIM): 4 Education OT Patient Education: Correct positioning, Modified ADL techniques, Progress toward Goal/Update tx plan, Purpose of tx/functional activities, Reviewed precautions, Rehab process, Use of adapted equipment Teaching Recipient: Patient Teaching Methods: Demonstration, Discussion Response to Teaching: Verbalize Understanding, Return Demonstration OT Short Term Goals Short Term Goals Grooming(FIM): 5 Bathing(FIM): 5 Bathing Location: L Arm, R Arm, L Upper Leg, R Upper Leg, L Lower Leg ( including foot), R Lower Leg (including foot), Chest, Abdomen, Buttocks, Perineal Area Upper Body Dressing(FIM): 5 Lower Body Dressing(FIM): 5 Toileting(FIM): 5 Transfers (B,C,W/C) (FIM): 4 Toilet/Commode Transfer(FIM): 4 Tub Transfer(FIM): 4 1=Demonstrate adherence to instructed precautions during ADL tasks. 2=Patient will verbalize/demonstrate understanding of assistive devices/ modifications for ADL. 3=Patient will improve strength/tolerance for activity to enable patient to perform ADL's. OT Senior Living Goals Senior Living Goals Eating (FIM): 7 Eating (QC): 6 Groomin Oral Hygiene (QC): 6 Bathing(FIM): 6 Bathing Location: L Arm, R Arm, L Upper Leg, R Upper Leg, L Lower Leg ( including foot), R Lower Leg (including foot), Chest, Abdomen, Buttocks, Perineal Area Shower/Bathe Self (QC): 6 Upper Body Dressing(FIM): 6 Upper Body Dressing (QC): 6 Lower Body Dressing(FIM): 6 Lower Body Dressing (QC): 6 On/Off Footwear (QC): 6 Toileting(FIM): 6 Toileting Hygiene (QC): 6 Transfers (B,C,W/C) (FIM): 6 Toilet/Commode Transfer(FIM): 6 Toilet/Commode Transfer (QC): 6 Shower Transfer(FIM): 6 Additional Goals: 1-Demonstrate ADL Tasks, 2-Verbalize Understanding, 3- ImproveStrength/[place] 1=Demonstrate adherence to instructed precautions during ADL tasks. 2=Patient will verbalize/demonstrate understanding of assistive devices/ modifications for ADL. 3=Patient will improve strength/tolerance for activity to enable patient to perform ADL's. OT Education/Plan Discharge Recommendations Plan/Recommendations: Continue POC Treatment Plan/Plan of Care Patient would benefit from OT for education, treatment and training to promote independence in ADL's, mobility, safety and/or upper extremity function for ADL' s. Plan of Care: ADL Retraining, Caregiver Training, Concurrent Therapy, Functional Mobility, Group Exercise/Act as Ind, UE Funct Exercise/Act Treatment Duration: November 02, 2018 Frequency: At least 5 of 7 days/Wk (IRF) Estimated Hrs Per Day: 1.5 hours per day Agreement: Yes Rehab Potential: Fair Time/GCodes Start Time: 10:00 Stop Time: 11:00 Total Time Billed (hr/min): 60 Billed Treatment Time 1, ADL x 4 ALVERTO LOPEZ OT Oct 09, 2018 11:44
--- NOTE | 2018-10-09 11:56 | Physical Therapy Daily Note ---
PT Daily Note-Current Subjective Pt. states her family brought her shoes and she would like to wear them today. This MANAGER BRAND donning only the right shoe to attempt assist with TTWBing left which is ordered precaution for pt. Pt. c/o pain in left hip with attempted SLR with assist. This MANAGER BRAND requested nurse might consider pursuing order for upgrade to PWBing left as this is what pt. has performed consistently. Pt. c/o pain during TRFs but did not rate the pain. Pt. admits she has anticipatory anxiety to pain with activity. Pain Numeric Pain Scale: 4 Location: Left Location Body Site: Hip Pain Description: Pressure Mental Status Patient Orientation: Person, Place, Time, Situation pt. requires repeated instruction and cuing for tasks and exercise, TRFs and gait Transfers Therapy Code Descriptions/Definitions Functional [place] Measure: 0=Not Assessed/NA 4=Minimal Assistance 1=Total Assistance 5=Supervision or Setup 2=Maximal Assistance 6=Modified [place] 3=Moderate Assistance 7=Complete [place] Therapy Quality Codes: 6 Independent with activity with or without an assistive device 5 Patient requires set up or clean up by helper. Patient completes activity by themselves 4 Supervision or touching assist (CGA). [place] provide cues , steadying assist 3 The helper provides less than half the effort to complete the activity 2 The helper provides more than half the effort to complete the activity 1 Dependent. The helper does all the effort to complete an activity 7 Patient refused to complete or attempt activity 9 The patient did not perform the activity before the current illness or injury 88 Not attempted due to Medical conditions or safety concerns Transfers (B, C, W/C) (FIM): 5 Scootin Rollin Supine to/from Sit: 5 Weight Bearing Right Lower Extremity: Right Full Weight Bearing Left Lower Extremity: Left Touch Toe Bearing total hip precautions Gait Training Does the Patient Walk?: Yes Distance (FIM): 5=550-24 ft (100,120) Distance: 100' Gait Level of Assist: 5 Gait Persons Needed: 1 Gait Assistive Device: FWW Pt. protocol is TTWB but pt. appears to be ambulating PWB left. Therapist educated pt. on what TTWB is but pt. does not complete gait TTWB but is consistently PWB.. Wheelchair Training Does the Pt Use a Wheelchair?: No Exercises Supine Ex: Ankle pumps, Quad Set, Glut sets, Heel Slides, Short Arc Quads, Straight leg raise, Hip abd/add Supine Reps: 10 Treatments Pt. made a remark of becoming too tired. Therapist educated pt. on hip precautions.Pt. was provided a written illustrated guide regarding THR precautions. Pt.s gait protocol is TTWB but pt. appears to be PWB during ambulation. Pt. may be upgraded to PWBing LLE soon Assessment Current Status: Fair Progress Pt.needs repeated cues and instruction in wt bearing as well as precautions for THR and has some memory /cognitive deficits. Pt will continue to benefit from therapy services by working on strength, mobility and balance. Pt. was left in bed with call light and all needs met. PT Short Term Goals Short Term Goals Time Frame: Oct 12, 2018 Transfers (B,C,W/C) (FIM): 4 Gait (FIM): 1 Gait Distance Comment: 20' Gait Level of Assist: 4 Gait Assistive Device: FWW PT Prison Goals Front End Mechanic Goals PT Front End Mechanic Goals Time Frame: October 26, 2018 Transfers (B,C,W/C) (FIM): 5 Sit to Lying (QC): 4 Lying-Sitting on Side/Bed(QC): 4 Sit to Stand (QC): 4 Rollin Roll Left to Right (QC): 4 Chair/Lux-em-Bjunp Xfer(QC): 4 Car Transfer (QC): 4 Gait (FIM): 2 Distance: 50' Walk 10 feet (QC): 4 Walk 10ft-Uneven Surface(QC): 4 Walk 50ft with 2 Turns (QC): 4 Gait Level of Assist: 5 Gait Assistive Device: FWW Stairs (FIM): 1 # of Steps: 1 1 Step (curb) (QC): 4 Stairs Level Of Assist: 4 PT Plan Treatment/Plan Treatment Plan: Continue Plan of Care Treatment Plan: Bed Mobility, Education, Functional Activity Anitra, Functional Strength, Group Therapy, Gait, Safety, Therapeutic Exercise, Transfers Treatment Duration: October 26, 2018 Frequency: At least 5 of 7 days/Wk (IRF) Estimated Hrs Per Day: 1.5 hours per day Patient and/or Family Agrees t: Yes Safety Risks/Education Patient Education: Gait Training, Transfer Techniques, Reviewed Precautions, Correct Positioning, Disease Process, Safety Issues Teaching Recipient: Patient Teaching Methods: Demonstration, Discussion Response to Teaching: Verbalize Understanding, Return Demonstration (with much instruction but not consistent), Reinforcement Needed Time/GCodes Time In: 1100 Time Out: 1200 Total Billed Treatment Time: 60 Total Billed Treatment 1, GT x 15min, EX x 30 min, FA x 15min G Codes Necessary: NATALIE Palacios MANAGER BRAND Oct 09, 2018 11:56
--- NOTE | 2018-10-09 14:50 | Physical Therapy Daily Note ---
PT Daily Note-Current Subjective Pt. reports to this AGER OPERATOR and to OT before PT that she is so tired and hopes to lay down for exercises this afternoon Rx. Transfers Therapy Code Descriptions/Definitions Functional [place] Measure: 0=Not Assessed/NA 4=Minimal Assistance 1=Total Assistance 5=Supervision or Setup 2=Maximal Assistance 6=Modified [place] 3=Moderate Assistance 7=Complete [place] Therapy Quality Codes: 6 Independent with activity with or without an assistive device 5 Patient requires set up or clean up by helper. Patient completes activity by themselves 4 Supervision or touching assist (CGA). [place] provide cues , steadying assist 3 The helper provides less than half the effort to complete the activity 2 The helper provides more than half the effort to complete the activity 1 Dependent. The helper does all the effort to complete an activity 7 Patient refused to complete or attempt activity 9 The patient did not perform the activity before the current illness or injury 88 Not attempted due to Medical conditions or safety concerns Weight Bearing Right Lower Extremity: Right Full Weight Bearing Left Lower Extremity: Left Touch Toe Bearing total hip precautions Exercises Supine Ex: Ankle pumps, Quad Set, Rolling (left and right), Glut sets, Heel Slides, Short Arc Quads, Scooting (up in bed with instruction), Straight leg raise ( assisted left, right 5), Hip abd/add (assisted L) Supine Reps: 20 isometric scapular retraction x 10, Treatments pt. with c/o pain in right shoulder requested roll on aspercreme per nurse and this was delivered. MHP was applied to right shoulder for 15m with 1 on 1 observation throughout, pt. stated this did help relieve discomfort. Assessment Current Status: Good Progress pt. is fatigued but agrees to supine exercise and gave good effort PT Short Term Goals Short Term Goals Time Frame: Oct 12, 2018 Transfers (B,C,W/C) (FIM): 4 Gait (FIM): 1 Gait Distance Comment: 20' Gait Level of Assist: 4 Gait Assistive Device: FWW PT White Metal Caster Goals Halfway Goals PT Halfway Goals Time Frame: October 26, 2018 Transfers (B,C,W/C) (FIM): 5 Sit to Lying (QC): 4 Lying-Sitting on Side/Bed(QC): 4 Sit to Stand (QC): 4 Rollin Roll Left to Right (QC): 4 Chair/Atf-yo-Xgeyu Xfer(QC): 4 Car Transfer (QC): 4 Gait (FIM): 2 Distance: 50' Walk 10 feet (QC): 4 Walk 10ft-Uneven Surface(QC): 4 Walk 50ft with 2 Turns (QC): 4 Gait Level of Assist: 5 Gait Assistive Device: FWW Stairs (FIM): 1 # of Steps: 1 1 Step (curb) (QC): 4 Stairs Level Of Assist: 4 PT Plan Treatment/Plan Treatment Plan: Continue Plan of Care Treatment Plan: Bed Mobility, Education, Functional Activity Anitra, Functional Strength, Group Therapy, Gait, Safety, Therapeutic Exercise, Transfers Treatment Duration: October 26, 2018 Frequency: At least 5 of 7 days/Wk (IRF) Estimated Hrs Per Day: 1.5 hours per day Patient and/or Family Agrees t: Yes Safety Risks/Education Patient Education: Correct Positioning, Disease Process, Safety Issues Teaching Recipient: Patient Teaching Methods: Demonstration, Discussion Response to Teaching: Verbalize Understanding, Return Demonstration, Reinforcement Needed needs much instruction and reinforcement Time/GCodes Time In: 1400 Time Out: 1430 Total Billed Treatment Time: 30 Total Billed Treatment 1,EX30m G Codes Necessary: NATALIE Palacios AGER OPERATOR Oct 09, 2018 14:50
--- NOTE | 2018-10-09 14:57 | NUR ---
C/O diarrhea. Has been incontinent in brief. Requesting Imodium. Also, requesting to use Aspercreme with Lidocaine on right shoulder. Dr. Lopez informed of above. Ok for Imodium and Aspercreme. Change Miralax to BID PRN.
[2018-10-09] MEDS ORDERED: PATIENT MAY USE OWN MED,SINGLE MED TP PRN (15:00)
[2018-10-09] MEDS: ASPERCREME WITH LIDOCAINE TP PRN (15:25)
[2018-10-09] MEDS: LOPERAMIDE 2 MG (IMODIUM) CAP PO PRN ×2 (15:25→18:45)
--- NOTE | 2018-10-09 15:30 | NUR ---
Call from Dr. Mccord's office. Patient may be WBAT to LLE.
--- NOTE | 2018-10-09 15:35 | Occupational Ther Daily Note ---
OT Current Status-Daily Note Subjective No pain reported. Appearance Pt. in bed. Agrees to work with OT. Mental Status/Objective Patient Orientation: Person, Place, Time, Situation Therapy Code Descriptions/Definitions Functional [place] Measure: 0=Not Assessed/NA 4=Minimal Assistance 1=Total Assistance 5=Supervision or Setup 2=Maximal Assistance 6=Modified [place] 3=Moderate Assistance 7=Complete [place] ADL-Treatment Therapy Code Descriptions/Definitions Functional [place] Measure: 0=Not Assessed/NA 4=Minimal Assistance 1=Total Assistance 5=Supervision or Setup 2=Maximal Assistance 6=Modified [place] 3=Moderate Assistance 7=Complete [place] Therapy Quality Codes: 6 Independent with activity with or without an assistive device 5 Patient requires set up or clean up by helper. Patient completes activity by themselves 4 Supervision or touching assist (CGA). [place] provide cues , steadying assist 3 The helper provides less than half the effort to complete the activity 2 The helper provides more than half the effort to complete the activity 1 Dependent. The helper does all the effort to complete an activity 7 Patient refused to complete or attempt activity 9 The patient did not perform the activity before the current illness or injury 88 Not attempted due to Medical conditions or safety concerns Lower Body Dressing (FIM): 3 Lower Body Dressing (QC): 3 On/Off Footwear (QC): 2 Toileting (FIM): 3 Toileting Hygiene (QC): 3 Transfers (B, C, W/C) (FIM): 4 Toilet/Commode Transfer (FIM): 4 Toilet Transfer (QC): 4 Pt. agrees to work with OT. Pt. requested to use the bathroom. Noted that she was incontinent of stool in brief. Transferred to toilet and removed clothing items with DS. Attempted to cleanse self after, but required assist to cleanse thoroughly. Donned fresh pants and brief with AE, but required max assist overall due to positioning on toilet. Max assist needed to slip on right shoe. Ambulated in therapy dining area with min assist and TTWB, using walker. All needs met. Pt. tolerated treatment well overall. Transferred back to bed with min assist needed for left LE positioning. OT Short Term Goals Short Term Goals Grooming(FIM): 5 Bathing(FIM): 5 Bathing Location: L Arm, R Arm, L Upper Leg, R Upper Leg, L Lower Leg ( including foot), R Lower Leg (including foot), Chest, Abdomen, Buttocks, Perineal Area Upper Body Dressing(FIM): 5 Lower Body Dressing(FIM): 5 Toileting(FIM): 5 Transfers (B,C,W/C) (FIM): 4 Toilet/Commode Transfer(FIM): 4 Tub Transfer(FIM): 4 1=Demonstrate adherence to instructed precautions during ADL tasks. 2=Patient will verbalize/demonstrate understanding of assistive devices/ modifications for ADL. 3=Patient will improve strength/tolerance for activity to enable patient to perform ADL's. OT Nursing Home Goals Nursing Home Goals Eating (FIM): 7 Eating (QC): 6 Groomin Oral Hygiene (QC): 6 Bathing(FIM): 6 Bathing Location: L Arm, R Arm, L Upper Leg, R Upper Leg, L Lower Leg ( including foot), R Lower Leg (including foot), Chest, Abdomen, Buttocks, Perineal Area Shower/Bathe Self (QC): 6 Upper Body Dressing(FIM): 6 Upper Body Dressing (QC): 6 Lower Body Dressing(FIM): 6 Lower Body Dressing (QC): 6 On/Off Footwear (QC): 6 Toileting(FIM): 6 Toileting Hygiene (QC): 6 Transfers (B,C,W/C) (FIM): 6 Toilet/Commode Transfer(FIM): 6 Toilet/Commode Transfer (QC): 6 Shower Transfer(FIM): 6 Additional Goals: 1-Demonstrate ADL Tasks, 2-Verbalize Understanding, 3- ImproveStrength/Anitra 1=Demonstrate adherence to instructed precautions during ADL tasks. 2=Patient will verbalize/demonstrate understanding of assistive devices/ modifications for ADL. 3=Patient will improve strength/tolerance for activity to enable patient to perform ADL's. OT Education/Plan Problem List/Assessment Assessment: Decreased Activ Tolerance, Dependent Transfers, Impaired I ADL's, Impaired Self-Care Skills Discharge Recommendations Plan/Recommendations: Continue POC Therapy D/C Recommendations: Home w/ Family Support, Occupational Therapy Home Care Equpiment Recommendations-D/C: Hip Kit Treatment Plan/Plan of Care Treatment,Training & Education: Yes Patient would benefit from OT for education, treatment and training to promote independence in ADL's, mobility, safety and/or upper extremity function for ADL' s. Plan of Care: ADL Retraining, Caregiver Training, Concurrent Therapy, Functional Mobility, Group Exercise/Act as Ind, UE Funct Exercise/Act Treatment Duration: November 02, 2018 Frequency: At least 5 of 7 days/Wk (IRF) Estimated Hrs Per Day: 1.5 hours per day Agreement: Yes Rehab Potential: Good Time/GCodes Start Time: 13:30 Stop Time: 14:00 Total Time Billed (hr/min): 30 Billed Treatment Time 1, ADL x 2 ALVERTO LOPEZ OT Oct 09, 2018 15:35
[2018-10-09 16:22] VITALS: BP 135/67
[2018-10-09] MEDS: MELATONIN 3 MG TABLET PO SCH (20:01)
[2018-10-09] MEDS: TOLTERODINE LA 2 MG (DETROL LA) CAP PO SCH (20:01)
[2018-10-10 05:25] VITALS: BP 146/54
[2018-10-10] MEDS: OMEGA 3 (FISH OIL) 1000 MG CAP PO SCH (06:07)
[2018-10-10] MEDS: MULTIVIT W/MINERALS TAB (THERAGRAN M) PO SCH (06:08)
--- NOTE | 2018-10-10 08:26 | Physical Therapy Progress Note ---
Therapy Progress Note Per nursing note on 10/09/18, pt is WBAT ROHIT STINSON PT Oct 10, 2018 08:26
[2018-10-10] MEDS: LORATADINE (CLARITIN) 10 MG TAB PO SCH (08:34)
[2018-10-10] MEDS: TOLTERODINE LA 4 MG (DETROL) CAP PO SCH (08:34)
[2018-10-10] MEDS: ATENOLOL 50 MG (TENORMIN) TAB PO SCH (08:34)
[2018-10-10] MEDS: ENOXAPARIN 40 MG/0.4 ML (LOVENOX) SYR SC SCH (08:34)
[2018-10-10] MEDS: LOPERAMIDE 2 MG (IMODIUM) CAP PO PRN (08:38)
--- NOTE | 2018-10-10 08:43 | PM&R Progress Note ---
Subjective HPI/CC On Admission Date Seen by Provider: Oct 10, 2018 Time Seen by Provider: 08:45 CC: Left hip fracture with debility HPI: This is an 78-year-old white female patient of Dr. Bello who presented to inpatient rehab after an uncomplicated left hip fracture repair by Dr Mccord. She will need to work on ambulation with walker and obtain return of independent ADL's in order to return home with her . She did not require a transfusion while on acute floor but does require iron infusion due to low iron level with low hemoglobin. Checked meds and labs and therapy notes. Patient has improved pain on pain meds. No chest pain or dyspnea. Reviewed list of diagnosis. PLOF was independent an currently 1 person assist. Subjective/Events-last exam Pt doing well overall. No significant confusion noted. Having still some loose stools but does not have any identifiable factors consistent with C-Diff so we will maintain Imodium and initiate Questran AC and HS prn for loose stools. Pain is controlled on pain medication. Overall feels much better and the K pad is helping her shoulder. Overall participating in all therapies and will ultimately go home with her Tolerating Venofer iron infusions Reviewed RN notes and therapy notes Review of Systems General: Fatigue Gastrointestinal: Diarrhea Musculoskeletal: leg pain Objective Exam Vital Signs Vital Signs Date Time Temp Pulse Resp B/P (MAP) Pulse Ox O2 Delivery O2 Flow Rate FiO2 10/10/18 15:41 98.7 67 16 106/57 (73) 93 Room Air Capillary Refill : Less Than 3 Seconds General Appearance: No Apparent Distress, WD/WN, Chronically ill, Thin HEENT: PERRL/EOMI, Normal ENT Inspection, Pharynx Normal, Moist Mucous Membranes Neck: Full Range of Motion, Normal Inspection, Non Tender, Supple Respiratory: Chest Non Tender, Lungs Clear, Normal Breath Sounds, No Accessory Muscle Use, No Respiratory Distress Cardiovascular: Regular Rate, Rhythm, No Edema, No Gallop, No JVD, No Murmur Gastrointestinal: Normal Bowel Sounds, No Organomegaly, No Pulsatile Mass, Non Tender, Soft Back: Normal Inspection, No CVA Tenderness, No Vertebral Tenderness Extremity: Normal Capillary Refill, Normal Inspection, Normal Range of Motion ( decreased ROM left leg), Non Tender, No Calf Tenderness, No Pedal Edema Neurologic/Psychiatric: Alert, Oriented x3, No Motor/Sensory Deficits, Normal Mood/Affect Skin: Normal Color, Warm/Dry Lymphatic: No Adenopathy Results/Procedures Lab Patient resulted labs reviewed. FIM Transfers Therapy Code Descriptions/Definitions Functional [place] Measure: 0=Not Assessed/NA 4=Minimal Assistance 1=Total Assistance 5=Supervision or Setup 2=Maximal Assistance 6=Modified [place] 3=Moderate Assistance 7=Complete [place] Therapy Quality Codes: 6 Independent with activity with or without an assistive device 5 Patient requires set up or clean up by helper. Patient completes activity by themselves 4 Supervision or touching assist (CGA). [place] provide cues , steadying assist 3 The helper provides less than half the effort to complete the activity 2 The helper provides more than half the effort to complete the activity 1 Dependent. The helper does all the effort to complete an activity 7 Patient refused to complete or attempt activity 9 The patient did not perform the activity before the current illness or injury 88 Not attempted due to Medical conditions or safety concerns Mental Status/Objective Comprehension: 7 Expression: 7 Social Interaction: 7 Problem Solvin Memory: 7 ADL-Treatment Feedin Eating (QC): 6 Groomin (Set up at sink to brush hair and teeth.) Oral Hygiene (QC): 4 Bathin (Pt. requires assistance in shower to wash bilateral LE. CGA in stance to wash rear mitch area.) Shower/Bathe Self (QC): 3 Upper Extremity Dressin Upper Body Dressing (QC): 4 Lower Extremity Dressin Lower Body Dressing (QC): 3 On/Off Footwear (QC): 2 Toiletin Toileting Hygiene (QC): 3 Toilet/Commode Transfer: 4 Toilet Transfer (QC): 4 Shower: 4 Assessment/Plan Assessment and Plan Assess & Plan/Chief Complaint (1) Hip fracture, left s/p repair Status: Acute (2) Hypertension Status: Chronic (3) Osteoarthritis Status: Chronic (4) Insomnia Status: Chronic (5) History of humerus fracture Status: Chronic (6) History of bowel resection Status: Chronic (7) Overactive bladder Status: Chronic (8) Acute blood loss anemia Status: Acute Plan: IRF protocol Return to independent activity prior to DC home with his Monitor subtle confusion but it seems to be clearing Pain control with Lortab Venofer until completed 1 gram of iron Kpad for left trapezium muscle spasm prn Baclofen seems to be helping also Monitor subtle confusion (1) Hip fracture, left (2) Insomnia (3) Acute blood loss anemia (4) Humeral fracture (5) Osteoarthritis (6) Hypertension (7) Overactive bladder (8) History of humerus fracture (9) History of bowel resection LUIS FELIPE COREAS DO Oct 10, 2018 08:42
[2018-10-10] MEDS ORDERED: CHOLESTYRAMINE 4 GM (QUESTRAN LITE, PREVALITE) PKT PO PRN (09:00)
[2018-10-10] MEDS ORDERED: LOPERAMIDE 2 MG (IMODIUM) CAP PO NR (09:00)
[2018-10-10] MEDS: IRON SUCROSE 200 MG/10 ML (VENOFER) VIAL IV SCH (09:34)
--- NOTE | 2018-10-10 11:05 | Physical Therapy Daily Note ---
PT Daily Note-Current Subjective Pt. agreed to therapy treatment. Pt. said she was not having pain, but some discomfort and tightness in her L hip. Pt. indicates she does not remember the sequence of tasks done repeatedly today anther Rx times. Pt. states "I dont know" many times during Rx today. Pain Location: No Pain Reported Mental Status Patient Orientation: Confused Pt. seems to require repeated orientation to the task at hand as well as instruction to continue to complete the given task ie, begin an exercise etc and needs instructed to continue to completion, stairs , gait etc. Transfers Therapy Code Descriptions/Definitions Functional [place] Measure: 0=Not Assessed/NA 4=Minimal Assistance 1=Total Assistance 5=Supervision or Setup 2=Maximal Assistance 6=Modified [place] 3=Moderate Assistance 7=Complete [place] Therapy Quality Codes: 6 Independent with activity with or without an assistive device 5 Patient requires set up or clean up by helper. Patient completes activity by themselves 4 Supervision or touching assist (CGA). [place] provide cues , steadying assist 3 The helper provides less than half the effort to complete the activity 2 The helper provides more than half the effort to complete the activity 1 Dependent. The helper does all the effort to complete an activity 7 Patient refused to complete or attempt activity 9 The patient did not perform the activity before the current illness or injury 88 Not attempted due to Medical conditions or safety concerns Transfers (B, C, W/C) (FIM): 5 Scootin Rollin Supine to/from Sit: 5 Sit to/from Stand: 5 Car Transfer (QC): 5 Pt. needs multiple VCs when transferring so that she is staying on task. Pt. seems to anticipate pain during transfers so it inhibits her getting into bed. Weight Bearing Right Lower Extremity: Right Full Weight Bearing Left Lower Extremity: Left Weight Bearing/Tolerated total hip precautions Gait Training Does the Patient Walk?: Yes Gait (FIM): 5 Distance (FIM): 9=883-52 ft Distance: 100' Gait Level of Assist: 5 Gait Persons Needed: 1 Gait Assistive Device: FWW (100') pt. upgraded to WBAT this date with no c/o pain , still walks flexed over FWW at trunk with profound scoliosis, history of polio with resulting flat foot and fallen arches etc. Wheelchair Training Does the Pt Use a Wheelchair?: Yes Wheelchair Distance: 1=up to 49 ft Distance: 20' Wheelchair Level of Assist: 5 Type of Wheelchair: Manual much instruction for steering/turning and manuevering w/c through doorways and turns as pts cognition seems more problematic today Stair Training Stair Training: Handrails/: uses walker Stairs (FIM): 1 #of Steps: 2 Stairs: Pattern: Step to Level of Assist: 5 Pt. needed multiple VCs for sequence to ascend/descend with appropriate foot. Pt. was able to perform task using the "pink "step inside of her FWW. Pt. again needed repeated instruction with each move Exercises Supine Ex: Ankle pumps, Quad Set, Rolling, Glut sets, Lower trunk rotation, Heel Slides, Short Arc Quads, Hip abd/add Supine Reps: 15 Seated Therapy Exercises: Ankle pumps, Long arc quads, Kicking activity, Hamstring Curls, Hip abd/add, Glut set Seated Reps: 10 NuStep Minutes: 10 NuStep Workload: 3 Treatments Pt. seemed more cognitively imapired today. Pt. needed multiple VCs throughout treatment to stay on task. Pt. tends to close eyes while doing exercises and doesnt seem to concentrate or give attention to the task at hand without repeated and frequent instruction Assessment Current Status: Fair Progress Pts. gait is more stable as she is now WBATd . Pt. does continue poor position in FWW but considering her significant scoliosis and polio residual pts gait is likely as safe as possible given her cognitive deficit and poor safety judgement at times PT Short Term Goals Short Term Goals Time Frame: Oct 12, 2018 Transfers (B,C,W/C) (FIM): 4 Gait (FIM): 1 Gait Distance Comment: 20' Gait Level of Assist: 4 Gait Assistive Device: FWW PT Guest Services Officer Goals Guest Services Officer Goals PT [facility] Goals Time Frame: October 26, 2018 Transfers (B,C,W/C) (FIM): 5 Sit to Lying (QC): 4 Lying-Sitting on Side/Bed(QC): 4 Sit to Stand (QC): 4 Rollin Roll Left to Right (QC): 4 Chair/Igs-ub-Ubmtx Xfer(QC): 4 Car Transfer (QC): 4 Gait (FIM): 2 Distance: 50' Walk 10 feet (QC): 4 Walk 10ft-Uneven Surface(QC): 4 Walk 50ft with 2 Turns (QC): 4 Gait Level of Assist: 5 Gait Assistive Device: FWW Stairs (FIM): 1 # of Steps: 1 1 Step (curb) (QC): 4 Stairs Level Of Assist: 4 PT Plan Treatment/Plan Treatment Plan: Continue Plan of Care Treatment Plan: Bed Mobility, Education, Functional Activity Anitra, Functional Strength, Group Therapy, Gait, Safety, Therapeutic Exercise, Transfers Treatment Duration: October 26, 2018 Frequency: At least 5 of 7 days/Wk (IRF) Estimated Hrs Per Day: 1.5 hours per day Patient and/or Family Agrees t: Yes Safety Risks/Education Patient Education: Gait Training, Transfer Techniques, Steps, Reviewed Precautions, Correct Positioning, W/C Management, Disease Process, Safety Issues Teaching Recipient: Patient Teaching Methods: Demonstration, Discussion Response to Teaching: Verbalize Understanding, Return Demonstration, Reinforcement Needed (for all tasks secondary to memory and cognitve deficit) Time/GCodes Time In: 930 Time Out: 1100 Total Billed Treatment Time: 90 Total Billed Treatment 1,GT25m,FA35m,EX30m G Codes Necessary: NATALIE Palacios FORMWORK CARPENTER Oct 10, 2018 11:05
--- NOTE | 2018-10-10 11:08 | Occupational Ther Daily Note ---
OT Current Status-Daily Note Subjective Pt in bed, agrees to therapy. Pt reports 5/10 pain in left hip. Mental Status/Objective Therapy Code Descriptions/Definitions Functional [place] Measure: 0=Not Assessed/NA 4=Minimal Assistance 1=Total Assistance 5=Supervision or Setup 2=Maximal Assistance 6=Modified [place] 3=Moderate Assistance 7=Complete [place] ADL-Treatment Pt declined shower or sponge bath today, states she had a good shower yesterday. Supine to sit with minimal assistance. Sit to stand with CGA, gait to restroom with FWW. Pt stood at sink to brush teeth with SBA. Pt fatigues with activity, so completed other grooming tasks while seated. Pt washed face and combed hair with set up while seated. Pt incontinent of small amount of bowel. Transferred to [facility] over toilet with minimal assistance for safety. Pt able to pull pants down and doff pants using dressing stick. Pt able to complete toileting hygiene. Pt used bowling alley floors installer to start Depends and pants over feet. Stood and completed pant hike with minimal assistance. Pt requires cues for hip precautions during LE ADLs. Stood at sink to wash hands with SBA. Transfer to recliner chair with FWW. Reviewed use of adaptive equipment for donning/doffing socks. Pt doffed socks with SBA using dressing stick. Donned socks with minimal assistance using sock aid. Pt requires increased time for ADL tasks. Therapy Code Descriptions/Definitions Functional [place] Measure: 0=Not Assessed/NA 4=Minimal Assistance 1=Total Assistance 5=Supervision or Setup 2=Maximal Assistance 6=Modified [place] 3=Moderate Assistance 7=Complete [place] Therapy Quality Codes: 6 Independent with activity with or without an assistive device 5 Patient requires set up or clean up by helper. Patient completes activity by themselves 4 Supervision or touching assist (CGA). Anna provide cues , steadying assist 3 The helper provides less than half the effort to complete the activity 2 The helper provides more than half the effort to complete the activity 1 Dependent. The helper does all the effort to complete an activity 7 Patient refused to complete or attempt activity 9 The patient did not perform the activity before the current illness or injury 88 Not attempted due to Medical conditions or safety concerns Grooming (FIM): 5 Oral Hygiene (QC): 4 Lower Body Dressing (FIM): 4 Lower Body Dressing (QC): 3 On/Off Footwear (QC): 3 Toileting (FIM): 3 Toilet/Commode Transfer (FIM): 4 Other Treatment Pt completed bilateral UE activity to increase strength needed for ADLs and transfers. Pt performed shoulder flexion, abduction, biceps curls, and triceps extension exercises x15 reps with red theraband. Rest breaks taken between exercises. Pt sitting in chair with needs met after session. Education OT Patient Education: Modified ADL techniques Teaching Recipient: Patient Teaching Methods: Demonstration, Discussion Response to Teaching: Return Demonstration OT Short Term Goals Short Term Goals Grooming(FIM): 5 Bathing(FIM): 5 Bathing Location: L Arm, R Arm, L Upper Leg, R Upper Leg, L Lower Leg ( including foot), R Lower Leg (including foot), Chest, Abdomen, Buttocks, Perineal Area Upper Body Dressing(FIM): 5 Lower Body Dressing(FIM): 5 Toileting(FIM): 5 Transfers (B,C,W/C) (FIM): 4 Toilet/Commode Transfer(FIM): 4 Tub Transfer(FIM): 4 1=Demonstrate adherence to instructed precautions during ADL tasks. 2=Patient will verbalize/demonstrate understanding of assistive devices/ modifications for ADL. 3=Patient will improve strength/tolerance for activity to enable patient to perform ADL's. OT Group Home Goals Group Home Goals Eating (FIM): 7 Eating (QC): 6 Groomin Oral Hygiene (QC): 6 Bathing(FIM): 6 Bathing Location: L Arm, R Arm, L Upper Leg, R Upper Leg, L Lower Leg ( including foot), R Lower Leg (including foot), Chest, Abdomen, Buttocks, Perineal Area Shower/Bathe Self (QC): 6 Upper Body Dressing(FIM): 6 Upper Body Dressing (QC): 6 Lower Body Dressing(FIM): 6 Lower Body Dressing (QC): 6 On/Off Footwear (QC): 6 Toileting(FIM): 6 Toileting Hygiene (QC): 6 Transfers (B,C,W/C) (FIM): 6 Toilet/Commode Transfer(FIM): 6 Toilet/Commode Transfer (QC): 6 Shower Transfer(FIM): 6 Additional Goals: 1-Demonstrate ADL Tasks, 2-Verbalize Understanding, 3- ImproveStrength/Anitra 1=Demonstrate adherence to instructed precautions during ADL tasks. 2=Patient will verbalize/demonstrate understanding of assistive devices/ modifications for ADL. 3=Patient will improve strength/tolerance for activity to enable patient to perform ADL's. OT Education/Plan Discharge Recommendations Plan/Recommendations: Continue POC Treatment Plan/Plan of Care Patient would benefit from OT for education, treatment and training to promote independence in ADL's, mobility, safety and/or upper extremity function for ADL' s. Plan of Care: ADL Retraining, Caregiver Training, Concurrent Therapy, Functional Mobility, Group Exercise/Act as Ind, UE Funct Exercise/Act Treatment Duration: November 02, 2018 Frequency: At least 5 of 7 days/Wk (IRF) Estimated Hrs Per Day: 1.5 hours per day Agreement: Yes Rehab Potential: Good Time/GCodes Start Time: 08:00 Stop Time: 09:00 Total Time Billed (hr/min): 60 Billed Treatment Time 1 visit, ADLx3(40minutes), EX(20minutes) ALEX BRUCE OT Oct 10, 2018 11:08
--- NOTE | 2018-10-10 12:55 | Occupational Ther Daily Note ---
OT Current Status-Daily Note Subjective Pt in bed, states she is tired, but agrees to therapy. Mental Status/Objective Therapy Code Descriptions/Definitions Functional [place] Measure: 0=Not Assessed/NA 4=Minimal Assistance 1=Total Assistance 5=Supervision or Setup 2=Maximal Assistance 6=Modified [place] 3=Moderate Assistance 7=Complete [place] ADL-Treatment Therapy Code Descriptions/Definitions Functional [place] Measure: 0=Not Assessed/NA 4=Minimal Assistance 1=Total Assistance 5=Supervision or Setup 2=Maximal Assistance 6=Modified [place] 3=Moderate Assistance 7=Complete [place] Therapy Quality Codes: 6 Independent with activity with or without an assistive device 5 Patient requires set up or clean up by helper. Patient completes activity by themselves 4 Supervision or touching assist (CGA). [place] provide cues , steadying assist 3 The helper provides less than half the effort to complete the activity 2 The helper provides more than half the effort to complete the activity 1 Dependent. The helper does all the effort to complete an activity 7 Patient refused to complete or attempt activity 9 The patient did not perform the activity before the current illness or injury 88 Not attempted due to Medical conditions or safety concerns Other Treatment Pt supine to sit with minimal assistance and cues for technique. Sit to stand with cues for hand placement. Pt performed gait to doorway with FWW, then requested to use w/c secondary to fatigue. To therapy gym via w/c. Arm bike [id number] to increase overall strength and activity tolerance needed for functional tasks. Pt performed task with minimal resistance and slow pace. Two rest breaks taken during activity. Pt returned to room, transferred to bed, completed sit to supine with min assist for left LE. Pt resting in bed with needs met after session. OT Short Term Goals Short Term Goals Grooming(FIM): 5 Bathing(FIM): 5 Bathing Location: L Arm, R Arm, L Upper Leg, R Upper Leg, L Lower Leg ( including foot), R Lower Leg (including foot), Chest, Abdomen, Buttocks, Perineal Area Upper Body Dressing(FIM): 5 Lower Body Dressing(FIM): 5 Toileting(FIM): 5 Transfers (B,C,W/C) (FIM): 4 Toilet/Commode Transfer(FIM): 4 Tub Transfer(FIM): 4 1=Demonstrate adherence to instructed precautions during ADL tasks. 2=Patient will verbalize/demonstrate understanding of assistive devices/ modifications for ADL. 3=Patient will improve strength/tolerance for activity to enable patient to perform ADL's. OT Senior Care Goals Flight Information Expediter Goals Eating (FIM): 7 Eating (QC): 6 Groomin Oral Hygiene (QC): 6 Bathing(FIM): 6 Bathing Location: L Arm, R Arm, L Upper Leg, R Upper Leg, L Lower Leg ( including foot), R Lower Leg (including foot), Chest, Abdomen, Buttocks, Perineal Area Shower/Bathe Self (QC): 6 Upper Body Dressing(FIM): 6 Upper Body Dressing (QC): 6 Lower Body Dressing(FIM): 6 Lower Body Dressing (QC): 6 On/Off Footwear (QC): 6 Toileting(FIM): 6 Toileting Hygiene (QC): 6 Transfers (B,C,W/C) (FIM): 6 Toilet/Commode Transfer(FIM): 6 Toilet/Commode Transfer (QC): 6 Shower Transfer(FIM): 6 Additional Goals: 1-Demonstrate ADL Tasks, 2-Verbalize Understanding, 3- ImproveStrength/Anitra 1=Demonstrate adherence to instructed precautions during ADL tasks. 2=Patient will verbalize/demonstrate understanding of assistive devices/ modifications for ADL. 3=Patient will improve strength/tolerance for activity to enable patient to perform ADL's. OT Education/Plan Discharge Recommendations Plan/Recommendations: Continue POC Treatment Plan/Plan of Care Patient would benefit from OT for education, treatment and training to promote independence in ADL's, mobility, safety and/or upper extremity function for ADL' s. Plan of Care: ADL Retraining, Caregiver Training, Concurrent Therapy, Functional Mobility, Group Exercise/Act as Ind, UE Funct Exercise/Act Treatment Duration: November 02, 2018 Frequency: At least 5 of 7 days/Wk (IRF) Estimated Hrs Per Day: 1.5 hours per day Agreement: Yes Rehab Potential: Good Time/GCodes Start Time: 11:15 Stop Time: 11:45 Total Time Billed (hr/min): 30 Billed Treatment Time 1 visit, EXx2(30minutes) ALEX BRUCE OT Oct 10, 2018 12:55
[2018-10-10] MEDS: HYDROcodone/APAP 5 MG/325 MG (LORTAB) TAB PO PRN (13:42)
[2018-10-10 15:41] VITALS: BP 106/57
[2018-10-10] MEDS: TOLTERODINE LA 2 MG (DETROL LA) CAP PO SCH (20:50)
[2018-10-10] MEDS: MELATONIN 3 MG TABLET PO SCH (20:50)
--- NOTE | 2018-10-11 02:45 | NUR ---
PROGRAM SERVICES PLANNER met with patient and spouse to review team conference summary. Although patient is hopeful to discharge home soon, team has recommended discharge on 52 due to continued need for standby assistance for transfers, decreased safety awareness and balance deficits. Patient and spouse are agreeable to this discharge today. PROGRAM SERVICES PLANNER reviewed recommendation of hip kit, walker and home health services upon discharge, both are in agreement with these. PROGRAM SERVICES PLANNER will continue to follow
[2018-10-11 05:06] VITALS: BP 134/58
[2018-10-11] MEDS: MULTIVIT W/MINERALS TAB (THERAGRAN M) PO SCH (06:25)
[2018-10-11] MEDS: OMEGA 3 (FISH OIL) 1000 MG CAP PO SCH (06:25)
--- NOTE | 2018-10-11 08:29 | PM&R Progress Note ---
Subjective HPI/CC On Admission Date Seen by Provider: Oct 11, 2018 Time Seen by Provider: 08:10 CC: Left hip fracture with debility HPI: This is an 78-year-old white female patient of Dr. Bello who presented to inpatient rehab after an uncomplicated left hip fracture repair by Dr Mccord. She will need to work on ambulation with walker and obtain return of independent ADL's in order to return home with her . She did not require a transfusion while on acute floor but does require iron infusion due to low iron level with low hemoglobin. Checked meds and labs and therapy notes. Patient has improved pain on pain meds. No chest pain or dyspnea. Reviewed list of diagnosis. PLOF was independent an currently 1 person assist. Subjective/Events-last exam Not really motivated and wants to go to bed after therapy She sews a lot and crochets so likely she doesn't get too much activity at home Loose stools are resolved with just one dose of Questran Incision looks great PT reports weight bearing is tolerated now OT reports she needs cues to help her facilitate ADLs independence She needs a walker at DC Family training will be needed with the DC at the end of the week but she really wants to go home soon Review of Systems General: Fatigue Musculoskeletal: leg pain Objective Exam Vital Signs Vital Signs Date Time Temp Pulse Resp B/P (MAP) Pulse Ox O2 Delivery O2 Flow Rate FiO2 10/11/18 09:33 Room Air 10/11/18 08:40 68 132/70 (90) 10/11/18 05:06 97.6 16 95 Capillary Refill : Less Than 3 Seconds General Appearance: No Apparent Distress, WD/WN, Chronically ill, Thin HEENT: PERRL/EOMI, Normal ENT Inspection, Pharynx Normal, Moist Mucous Membranes Neck: Full Range of Motion, Normal Inspection, Non Tender, Supple Respiratory: Chest Non Tender, Lungs Clear, Normal Breath Sounds, No Accessory Muscle Use, No Respiratory Distress Cardiovascular: Regular Rate, Rhythm, No Edema, No Gallop, No JVD, No Murmur Gastrointestinal: Normal Bowel Sounds, No Organomegaly, No Pulsatile Mass, Non Tender, Soft Back: Normal Inspection, No CVA Tenderness, No Vertebral Tenderness Extremity: Normal Capillary Refill, Normal Inspection, Normal Range of Motion ( decreased ROM left leg), Non Tender, No Calf Tenderness, No Pedal Edema Neurologic/Psychiatric: Alert, Oriented x3, No Motor/Sensory Deficits, Normal Mood/Affect Skin: Normal Color, Warm/Dry Lymphatic: No Adenopathy Results/Procedures Lab Patient resulted labs reviewed. FIM Transfers Therapy Code Descriptions/Definitions Functional [place] Measure: 0=Not Assessed/NA 4=Minimal Assistance 1=Total Assistance 5=Supervision or Setup 2=Maximal Assistance 6=Modified [place] 3=Moderate Assistance 7=Complete [place] Therapy Quality Codes: 6 Independent with activity with or without an assistive device 5 Patient requires set up or clean up by helper. Patient completes activity by themselves 4 Supervision or touching assist (CGA). [place] provide cues , steadying assist 3 The helper provides less than half the effort to complete the activity 2 The helper provides more than half the effort to complete the activity 1 Dependent. The helper does all the effort to complete an activity 7 Patient refused to complete or attempt activity 9 The patient did not perform the activity before the current illness or injury 88 Not attempted due to Medical conditions or safety concerns Mental Status/Objective Comprehension: 7 Expression: 7 Social Interaction: 7 Problem Solvin Memory: 7 ADL-Treatment Feedin Eating (QC): 6 Groomin Oral Hygiene (QC): 4 Bathin (Pt. requires assistance in shower to wash bilateral LE. CGA in stance to wash rear mitch area.) Shower/Bathe Self (QC): 3 Upper Extremity Dressin Upper Body Dressing (QC): 4 Lower Extremity Dressin Lower Body Dressing (QC): 3 On/Off Footwear (QC): 3 Toiletin Toileting Hygiene (QC): 3 Toilet/Commode Transfer: 4 Toilet Transfer (QC): 4 Shower: 4 Assessment/Plan Assessment and Plan Assess & Plan/Chief Complaint (1) Hip fracture, left s/p repair Status: Acute (2) Hypertension Status: Chronic (3) Osteoarthritis Status: Chronic (4) Insomnia Status: Chronic (5) History of humerus fracture Status: Chronic (6) History of bowel resection Status: Chronic (7) Overactive bladder Status: Chronic (8) Acute blood loss anemia Status: Acute Plan: IRF protocol Return to independent activity prior to DC home with his Monitor subtle confusion but it seems to be clearing Pain control with Lortab Venofer until completed 1 gram of iron Kpad for left trapezium muscle spasm prn Baclofen seems to be helping also Monitor subtle confusion (1) Hip fracture, left (2) Insomnia (3) Acute blood loss anemia (4) Humeral fracture (5) Osteoarthritis (6) Hypertension (7) Overactive bladder (8) History of humerus fracture (9) History of bowel resection LUIS FELIPE COREAS DO Oct 11, 2018 08:28
[2018-10-11 08:40] VITALS: BP 132/70
[2018-10-11] MEDS: HYDROcodone/APAP 5 MG/325 MG (LORTAB) TAB PO PRN ×3 (08:41→20:51)
[2018-10-11] MEDS: TOLTERODINE LA 4 MG (DETROL) CAP PO SCH (08:41)
[2018-10-11] MEDS: ATENOLOL 50 MG (TENORMIN) TAB PO SCH (08:41)
[2018-10-11] MEDS: LORATADINE (CLARITIN) 10 MG TAB PO SCH (08:41)
[2018-10-11] MEDS: ENOXAPARIN 40 MG/0.4 ML (LOVENOX) SYR SC SCH (08:41)
[2018-10-11] MEDS: [UNRECOGNIZED DRUG - REMARK] TP SCH (09:55)
[2018-10-11] MEDS: CAPSAICIN TP PRN (10:44)
--- NOTE | 2018-10-11 10:49 | NUR ---
Capsaicin patch applied to right lower back per patient's request.
--- NOTE | 2018-10-11 11:32 | Occupational Ther Daily Note ---
OT Current Status-Daily Note Subjective Pt sitting in chair, agrees to treatment. Pt reports 4/10 pain in left hip. Mental Status/Objective Therapy Code Descriptions/Definitions Functional [place] Measure: 0=Not Assessed/NA 4=Minimal Assistance 1=Total Assistance 5=Supervision or Setup 2=Maximal Assistance 6=Modified [place] 3=Moderate Assistance 7=Complete [place] ADL-Treatment Pt declined shower today, but would like a sponge bath. Pt completed sponge bath while seated in chair. Doffed shirt with SBA. Pt doffed pants with minimal assistance using dressing stick. Upper body bathing completed with SBA. Pt able to wash bilateral upper legs, mitch area, and buttocks. Required assist for lower legs/feet secondary to hip precautions. Don pullover shirt with set up. Pt used range scientist to start Depends and pants over feet. Stood with CGA for balance during pant hike. Pt donned socks with SBA and verbal cues for technique using sock aid. Pt has some difficulty remembering use of adaptive equipment from previous sessions. Gait to restroom with FWW. Pt brushed teeth with SBA while standing at sink. Pt requires increased time to complete ADL tasks. Pt sitting in chair with needs met after session. Therapy Code Descriptions/Definitions Functional [place] Measure: 0=Not Assessed/NA 4=Minimal Assistance 1=Total Assistance 5=Supervision or Setup 2=Maximal Assistance 6=Modified [place] 3=Moderate Assistance 7=Complete [place] Therapy Quality Codes: 6 Independent with activity with or without an assistive device 5 Patient requires set up or clean up by helper. Patient completes activity by themselves 4 Supervision or touching assist (CGA). [place] provide cues , steadying assist 3 The helper provides less than half the effort to complete the activity 2 The helper provides more than half the effort to complete the activity 1 Dependent. The helper does all the effort to complete an activity 7 Patient refused to complete or attempt activity 9 The patient did not perform the activity before the current illness or injury 88 Not attempted due to Medical conditions or safety concerns Grooming (FIM): 5 Oral Hygiene (QC): 4 Bathing (FIM): 4 Shower/Bathe Self (QC): 3 Upper Body (FIM): 5 Upper Body Dressing (QC): 4 Lower Body Dressing (FIM): 4 Lower Body Dressing (QC): 3 On/Off Footwear (QC): 4 OT Short Term Goals Short Term Goals Grooming(FIM): 5 Bathing(FIM): 5 Bathing Location: L Arm, R Arm, L Upper Leg, R Upper Leg, L Lower Leg ( including foot), R Lower Leg (including foot), Chest, Abdomen, Buttocks, Perineal Area Upper Body Dressing(FIM): 5 Lower Body Dressing(FIM): 5 Toileting(FIM): 5 Transfers (B,C,W/C) (FIM): 4 Toilet/Commode Transfer(FIM): 4 Tub Transfer(FIM): 4 1=Demonstrate adherence to instructed precautions during ADL tasks. 2=Patient will verbalize/demonstrate understanding of assistive devices/ modifications for ADL. 3=Patient will improve strength/tolerance for activity to enable patient to perform ADL's. OT Appliance Sales Associate Goals Appliance Sales Associate Goals Eating (FIM): 7 Eating (QC): 6 Groomin Oral Hygiene (QC): 6 Bathing(FIM): 6 Bathing Location: L Arm, R Arm, L Upper Leg, R Upper Leg, L Lower Leg ( including foot), R Lower Leg (including foot), Chest, Abdomen, Buttocks, Perineal Area Shower/Bathe Self (QC): 6 Upper Body Dressing(FIM): 6 Upper Body Dressing (QC): 6 Lower Body Dressing(FIM): 6 Lower Body Dressing (QC): 6 On/Off Footwear (QC): 6 Toileting(FIM): 6 Toileting Hygiene (QC): 6 Transfers (B,C,W/C) (FIM): 6 Toilet/Commode Transfer(FIM): 6 Toilet/Commode Transfer (QC): 6 Shower Transfer(FIM): 6 Additional Goals: 1-Demonstrate ADL Tasks, 2-Verbalize Understanding, 3- ImproveStrength/Anitra 1=Demonstrate adherence to instructed precautions during ADL tasks. 2=Patient will verbalize/demonstrate understanding of assistive devices/ modifications for ADL. 3=Patient will improve strength/tolerance for activity to enable patient to perform ADL's. OT Education/Plan Discharge Recommendations Plan/Recommendations: Continue POC Treatment Plan/Plan of Care Patient would benefit from OT for education, treatment and training to promote independence in ADL's, mobility, safety and/or upper extremity function for ADL' s. Plan of Care: ADL Retraining, Caregiver Training, Concurrent Therapy, Functional Mobility, Group Exercise/Act as Ind, UE Funct Exercise/Act Treatment Duration: November 02, 2018 Frequency: At least 5 of 7 days/Wk (IRF) Estimated Hrs Per Day: 1.5 hours per day Agreement: Yes Rehab Potential: Good Time/GCodes Start Time: 08:00 Stop Time: 09:00 Total Time Billed (hr/min): 60 Billed Treatment Time 1 visit, ADLx4(60minutes) ALEX BRUCE OT Oct 11, 2018 11:32
--- NOTE | 2018-10-11 14:28 | Therapy Group Daily Note ---
Therapy Daily Group Note Patient Education Topic Exercises Exercises LE Seated Exercise, UE Exercise Session Ratio (pt:therapist): 4:1 Goal of Session: UE/LE Strengthing, Other (list) (understanding the benefits of exercise) Goal Met for this Session: Yes Pt Benefit of Group: Contributions to Others, Increased Functional Safety, Increased Functional Strength, Recognition of Peers, Socialization Other/Notes Pt. attended group PT OT session this date. Pt. ambulated to and from session with FWW and CGA. Pts. introduced themselves and shared some about their grade school days and physical activities they enjoy. Pts. were educated regarding the benefits and importance of exercise and activity .Pts were assisted with and instructed in use of theraband, wrist / ankle weights and active exercise. Pt. was taken to room after , sánchez at hand , needs met Start Time: 13:00 Stop Time: 14:05 Total Billed Treatment Time: 65 Total Billed Treatment 1,GRP NATALIE [place] AGENT Oct 11, 2018 14:28
[2018-10-11] MEDS: ASPERCREME WITH LIDOCAINE TP PRN ×2 (14:59→20:52)
[2018-10-11 17:56] VITALS: BP 100/50
--- NOTE | 2018-10-11 19:25 | NUR ---
bedside report received from KATE HU, assume care of pt
[2018-10-11] MEDS: MELATONIN 3 MG TABLET PO SCH (20:49)
[2018-10-11] MEDS: TOLTERODINE LA 2 MG (DETROL LA) CAP PO SCH (20:49)
--- NOTE | 2018-10-11 20:51 | NUR ---
c/o lt leg pain level 5/10 on numeric scale, Lortab 5 1 tab po given
--- NOTE | 2018-10-11 21:00 | NUR ---
assessments & interventions completed, see assessments & interventions, Aspercreme to nolan shoulders for c/o soreness, warm blanket to lt leg, up to bathroom with 1 person assist & walker
--- NOTE | 2018-10-11 21:33 | NUR ---
rates pain level 2/10 on numeric scale
[2018-10-12] MEDS: HYDROcodone/APAP 5 MG/325 MG (LORTAB) TAB PO PRN ×2 (03:51→13:43)
--- NOTE | 2018-10-12 03:51 | NUR ---
C/O LT LEG PAIN LEVEL 6/10 ON NUMERIC SCALE, LORTAB 5 1 TAB PO GIVEN
--- NOTE | 2018-10-12 04:30 | NUR ---
resting quietly in bed, pain level 0/10 on flacc scale
[2018-10-12 05:30] VITALS: BP 137/69
[2018-10-12] MEDS: OMEGA 3 (FISH OIL) 1000 MG CAP PO SCH (06:48)
[2018-10-12] MEDS: MULTIVIT W/MINERALS TAB (THERAGRAN M) PO SCH (06:48)
--- NOTE | 2018-10-12 07:22 | NUR ---
bedside report given to MARCO A HU
[2018-10-12] MEDS: CAPSAICIN TP PRN (08:08)
--- NOTE | 2018-10-12 08:36 | PM&R Progress Note ---
Subjective HPI/CC On Admission Date Seen by Provider: Oct 12, 2018 Time Seen by Provider: 08:15 CC: Left hip fracture with debility HPI: This is an 78-year-old white female patient of Dr. Bello who presented to inpatient rehab after an uncomplicated left hip fracture repair by Dr Mccord. She will need to work on ambulation with walker and obtain return of independent ADL's in order to return home with her . She did not require a transfusion while on acute floor but does require iron infusion due to low iron level with low hemoglobin. Checked meds and labs and therapy notes. Patient has improved pain on pain meds. No chest pain or dyspnea. Reviewed list of diagnosis. PLOF was independent an currently 1 person assist. Subjective/Events-last exam Refuses to leave the IV in after Venofer given so today will be the next to last dose so will discontinue it after today and she seems to be pleased about that. Has B/L patches on her hips now because she has had high hip pain that Dr. Kay has given injections in. MiraLax ordered because now after the Questran and Imodium had been given she is now constipated. Seems to focus on a lot of things that are different everyday. Participating in therapy. Review of Systems General: Fatigue Musculoskeletal: leg pain Objective Exam Vital Signs Vital Signs Date Time Temp Pulse Resp B/P (MAP) Pulse Ox O2 Delivery O2 Flow Rate FiO2 10/12/18 16:37 98.0 61 16 131/56 (81) 93 Room Air Capillary Refill : Less Than 3 Seconds General Appearance: No Apparent Distress, WD/WN, Chronically ill, Thin HEENT: PERRL/EOMI, Normal ENT Inspection, Pharynx Normal, Moist Mucous Membranes Neck: Full Range of Motion, Normal Inspection, Non Tender, Supple Respiratory: Chest Non Tender, Lungs Clear, Normal Breath Sounds, No Accessory Muscle Use, No Respiratory Distress Cardiovascular: Regular Rate, Rhythm, No Edema, No Gallop, No JVD, No Murmur Gastrointestinal: Normal Bowel Sounds, No Organomegaly, No Pulsatile Mass, Non Tender, Soft Back: Normal Inspection, No CVA Tenderness, No Vertebral Tenderness Extremity: Normal Capillary Refill, Normal Inspection, Normal Range of Motion ( decreased ROM left leg), Non Tender, No Calf Tenderness, No Pedal Edema Neurologic/Psychiatric: Alert, Oriented x3, No Motor/Sensory Deficits, Normal Mood/Affect Skin: Normal Color, Warm/Dry Lymphatic: No Adenopathy Results/Procedures Lab Patient resulted labs reviewed. FIM Transfers Therapy Code Descriptions/Definitions Functional [place] Measure: 0=Not Assessed/NA 4=Minimal Assistance 1=Total Assistance 5=Supervision or Setup 2=Maximal Assistance 6=Modified [place] 3=Moderate Assistance 7=Complete [place] Therapy Quality Codes: 6 Independent with activity with or without an assistive device 5 Patient requires set up or clean up by helper. Patient completes activity by themselves 4 Supervision or touching assist (CGA). [place] provide cues , steadying assist 3 The helper provides less than half the effort to complete the activity 2 The helper provides more than half the effort to complete the activity 1 Dependent. The helper does all the effort to complete an activity 7 Patient refused to complete or attempt activity 9 The patient did not perform the activity before the current illness or injury 88 Not attempted due to Medical conditions or safety concerns Mental Status/Objective Comprehension: 7 Expression: 7 Social Interaction: 7 Problem Solvin Memory: 7 ADL-Treatment Feedin Eating (QC): 6 Groomin Oral Hygiene (QC): 4 Bathin Shower/Bathe Self (QC): 3 Upper Extremity Dressin Upper Body Dressing (QC): 4 Lower Extremity Dressin Lower Body Dressing (QC): 3 On/Off Footwear (QC): 4 Toiletin Toileting Hygiene (QC): 3 Toilet/Commode Transfer: 4 Toilet Transfer (QC): 4 Shower: 4 Assessment/Plan Assessment and Plan Assess & Plan/Chief Complaint (1) Hip fracture, left s/p repair Status: Acute (2) Hypertension Status: Chronic (3) Osteoarthritis Status: Chronic (4) Insomnia Status: Chronic (5) History of humerus fracture Status: Chronic (6) History of bowel resection Status: Chronic (7) Overactive bladder Status: Chronic (8) Acute blood loss anemia Status: Acute Plan: IRF protocol Return to independent activity prior to DC home with his Monitor subtle confusion but it seems to be clearing Pain control with Lortab Venofer completed today total of 1 gram of iron Kpad for left trapezium muscle spasm prn Baclofen seems to be helping also Monitor subtle confusion (1) Hip fracture, left (2) Insomnia (3) Acute blood loss anemia (4) Humeral fracture (5) Osteoarthritis (6) Hypertension (7) Overactive bladder (8) History of humerus fracture (9) History of bowel resection LUIS FELIPE COREAS DO Oct 12, 2018 08:35
[2018-10-12 08:50] VITALS: BP 125/75
[2018-10-12] MEDS: TOLTERODINE LA 4 MG (DETROL) CAP PO SCH (08:51)
[2018-10-12] MEDS: LORATADINE (CLARITIN) 10 MG TAB PO SCH (08:51)
[2018-10-12] MEDS: POLYETHYLENE GLYCOL 17 GM (MIRALAX) PACK PO PRN (08:51)
[2018-10-12] MEDS: ATENOLOL 50 MG (TENORMIN) TAB PO SCH (08:51)
[2018-10-12] MEDS: ENOXAPARIN 40 MG/0.4 ML (LOVENOX) SYR SC SCH (08:51)
[2018-10-12] MEDS: [UNRECOGNIZED DRUG - REMARK] TP SCH (09:00)
--- NOTE | 2018-10-12 10:00 | Physical Therapy Daily Note ---
PT Daily Note-Current Subjective Patient in bathroom pre tx, agrees to PT, has 4/10 pain in left hip. Patient finishes and pulls her own pants up. Appearance Patient in bed post tx with nurse call, phone, tray, all needs met. Mental Status Patient Orientation: Person, Place, Situation Transfers Therapy Code Descriptions/Definitions Functional [place] Measure: 0=Not Assessed/NA 4=Minimal Assistance 1=Total Assistance 5=Supervision or Setup 2=Maximal Assistance 6=Modified [place] 3=Moderate Assistance 7=Complete [place] Therapy Quality Codes: 6 Independent with activity with or without an assistive device 5 Patient requires set up or clean up by helper. Patient completes activity by themselves 4 Supervision or touching assist (CGA). [place] provide cues , steadying assist 3 The helper provides less than half the effort to complete the activity 2 The helper provides more than half the effort to complete the activity 1 Dependent. The helper does all the effort to complete an activity 7 Patient refused to complete or attempt activity 9 The patient did not perform the activity before the current illness or injury 88 Not attempted due to Medical conditions or safety concerns Transfers (B, C, W/C) (FIM): 4 Scootin Rollin Supine to/from Sit: 4 Sit to/from Stand: 5 Bed to/from Chair: 5 Min assist for supine <-> sit and rolling. Cues for hand placement. Occasionally patient will try to leave walker behind when performing transfers. Weight Bearing Right Lower Extremity: Right Full Weight Bearing Left Lower Extremity: Left Weight Bearing/Tolerated total hip precautions Gait Training Gait (FIM): 5 Distance: 150'x2 Gait Level of Assist: 5 Gait Persons Needed: 1 Gait Assistive Device: FWW Slow, antalgic, good step through. Exercises Supine Ex: Ankle pumps, Quad Set, Glut sets, Heel Slides, Short Arc Quads, Straight leg raise, Hip abd/add Supine Reps: 20 (LLE) Standing: Hip Abduction, Hamstring curls, Heel/toe raises, Mini squats Standing Reps: 15 LAQ left side for 5 min. Treatments bed mobility and transfers, ambulation, LE exercises, patient was also toileted again for a BM, she was able to wipe and get pants up and down without assist. Assessment Current Status: Fair Progress improving endurance PT Short Term Goals Short Term Goals Time Frame: Oct 12, 2018 Transfers (B,C,W/C) (FIM): 4 Gait (FIM): 1 Gait Distance Comment: 20' Gait Level of Assist: 4 Gait Assistive Device: FWW Wheelchair Distance: 20' PT Film Booker Goals Detention Goals PT Detention Goals Time Frame: October 26, 2018 Transfers (B,C,W/C) (FIM): 5 Sit to Lying (QC): 4 Lying-Sitting on Side/Bed(QC): 4 Sit to Stand (QC): 4 Rollin Roll Left to Right (QC): 4 Chair/Uel-bw-Jatcd Xfer(QC): 4 Car Transfer (QC): 4 Gait (FIM): 2 Distance: 50' Walk 10 feet (QC): 4 Walk 10ft-Uneven Surface(QC): 4 Walk 50ft with 2 Turns (QC): 4 Gait Level of Assist: 5 Gait Assistive Device: FWW Stairs (FIM): 1 # of Steps: 1 1 Step (curb) (QC): 4 Stairs Level Of Assist: 4 PT Plan Problem List Problem List: Activity Tolerance, Functional Strength, Safety, Balance, Gait, Transfer, Bed Mobility, ROM Treatment/Plan Treatment Plan: Continue Plan of Care Treatment Plan: Bed Mobility, Education, Functional Activity Anitra, Functional Strength, Group Therapy, Gait, Safety, Therapeutic Exercise, Transfers Treatment Duration: October 26, 2018 Frequency: At least 5 of 7 days/Wk (IRF) Estimated Hrs Per Day: 1.5 hours per day Patient and/or Family Agrees t: Yes Safety Risks/Education Patient Education: Gait Training, Transfer Techniques, Reviewed Precautions, Correct Positioning, Safety Issues Teaching Recipient: Patient Teaching Methods: Demonstration, Discussion Response to Teaching: Reinforcement Needed Time/GCodes Time In: 0900 Time Out: 1000 Total Billed Treatment Time: 60 Total Billed Treatment 1 visit EX 30' GT 20' FA 10' EDDIE MOSS PT Oct 12, 2018 10:00
--- NOTE | 2018-10-12 13:27 | Occupational Ther Daily Note ---
OT Current Status-Daily Note Subjective Pt. declines showering and states that she has been cold. Appearance Pt. in bed. Declines showering or changing clothing, stating that she is cold and she isn't dirty. Does agree to OT. Mental Status/Objective Patient Orientation: Person Therapy Code Descriptions/Definitions Functional [place] Measure: 0=Not Assessed/NA 4=Minimal Assistance 1=Total Assistance 5=Supervision or Setup 2=Maximal Assistance 6=Modified [place] 3=Moderate Assistance 7=Complete [place] Pt. does have difficulty with memory at times. Asks multiple times the purpose of each activity. ADL-Treatment Therapy Code Descriptions/Definitions Functional [place] Measure: 0=Not Assessed/NA 4=Minimal Assistance 1=Total Assistance 5=Supervision or Setup 2=Maximal Assistance 6=Modified [place] 3=Moderate Assistance 7=Complete [place] Therapy Quality Codes: 6 Independent with activity with or without an assistive device 5 Patient requires set up or clean up by helper. Patient completes activity by themselves 4 Supervision or touching assist (CGA). [place] provide cues , steadying assist 3 The helper provides less than half the effort to complete the activity 2 The helper provides more than half the effort to complete the activity 1 Dependent. The helper does all the effort to complete an activity 7 Patient refused to complete or attempt activity 9 The patient did not perform the activity before the current illness or injury 88 Not attempted due to Medical conditions or safety concerns Lower Body Dressing (FIM): 4 (Min assist to don slipper socks with sock aide. Pt. requires cues to complete correctly. Declines shoes.) Lower Body Dressing (QC): 4 On/Off Footwear (QC): 4 Transfers (B, C, W/C) (FIM): 4 (SBA supine-sit. CGA to ambulate with walker to therapy room. Min assist sit-supine.) Pt. transferred to side of bed with SBA. Donned slipper socks with sock aide with min assist. Ambulated to therapy gym. Tolerated 10 minutes on armbike at mod resistance to work on overall strength and independence with daily tasks. Donned 1 lb. wrist weights and completed fine motor task with therapy pegs. While pt. doing this, worked on Drippler, as pt. is interested in this. Completed this task for cognition and memory. Pt. does ask throughout treatment questions that have already been answered. Seems to have some difficulty retaining new information. During ambulation back to room, pt. seemed somewhat confused as to where room was, and then had difficulty finding it after it was pointed to her. Once in room, pt. requests to lay down. All needs met in bed. Pt. made comfortable and states that she would like to take a nap. Education OT Patient Education: Correct positioning, Exercise program, Home exercise program, Modified ADL techniques, Progress toward Goal/Update tx plan, Purpose of tx/functional activities, Reviewed precautions, Rehab process, Transfer techniques, Use of adapted equipment Teaching Recipient: Patient Teaching Methods: Demonstration, Discussion Response to Teaching: Verbalize Understanding, Return Demonstration OT Short Term Goals Short Term Goals Grooming(FIM): 5 Bathing(FIM): 5 Bathing Location: L Arm, R Arm, L Upper Leg, R Upper Leg, L Lower Leg ( including foot), R Lower Leg (including foot), Chest, Abdomen, Buttocks, Perineal Area Upper Body Dressing(FIM): 5 Lower Body Dressing(FIM): 5 Toileting(FIM): 5 Transfers (B,C,W/C) (FIM): 4 Toilet/Commode Transfer(FIM): 4 Tub Transfer(FIM): 4 1=Demonstrate adherence to instructed precautions during ADL tasks. 2=Patient will verbalize/demonstrate understanding of assistive devices/ modifications for ADL. 3=Patient will improve strength/tolerance for activity to enable patient to perform ADL's. OT Celery Stripper Goals Celery Stripper Goals Eating (FIM): 7 Eating (QC): 6 Groomin Oral Hygiene (QC): 6 Bathing(FIM): 6 Bathing Location: L Arm, R Arm, L Upper Leg, R Upper Leg, L Lower Leg ( including foot), R Lower Leg (including foot), Chest, Abdomen, Buttocks, Perineal Area Shower/Bathe Self (QC): 6 Upper Body Dressing(FIM): 6 Upper Body Dressing (QC): 6 Lower Body Dressing(FIM): 6 Lower Body Dressing (QC): 6 On/Off Footwear (QC): 6 Toileting(FIM): 6 Toileting Hygiene (QC): 6 Transfers (B,C,W/C) (FIM): 6 Toilet/Commode Transfer(FIM): 6 Toilet/Commode Transfer (QC): 6 Shower Transfer(FIM): 6 Additional Goals: 1-Demonstrate ADL Tasks, 2-Verbalize Understanding, 3- ImproveStrength/Anitra 1=Demonstrate adherence to instructed precautions during ADL tasks. 2=Patient will verbalize/demonstrate understanding of assistive devices/ modifications for ADL. 3=Patient will improve strength/tolerance for activity to enable patient to perform ADL's. OT Education/Plan Problem List/Assessment Assessment: Decreased Activ Tolerance, Decreased UE Strength, Dependent Transfers, Impaired Cognition, Impaired I ADL's, Impaired Self-Care Skills Discharge Recommendations Plan/Recommendations: Continue POC Therapy D/C Recommendations: Home w/ Family Support, Occupational Therapy Home Care Equpiment Recommendations-D/C: Hip Kit Treatment Plan/Plan of Care Treatment,Training & Education: Yes Patient would benefit from OT for education, treatment and training to promote independence in ADL's, mobility, safety and/or upper extremity function for ADL' s. Plan of Care: ADL Retraining, Caregiver Training, Concurrent Therapy, Functional Mobility, Group Exercise/Act as Ind, UE Funct Exercise/Act Treatment Duration: November 02, 2018 Frequency: At least 5 of 7 days/Wk (IRF) Estimated Hrs Per Day: 1.5 hours per day Agreement: Yes Rehab Potential: Good Time/GCodes Start Time: 10:45 Stop Time: 12:15 Total Time Billed (hr/min): 90 Billed Treatment Time 1, ADL x 15minutes, Ex x 15minutes, FA x 60minutes ALVERTO LOPEZ OT Oct 12, 2018 13:27
--- NOTE | 2018-10-12 13:57 | Physical Therapy Daily Note ---
PT Daily Note-Current Subjective Patient in bed pre tx, agrees reluctantly to PT, has 5-6/10 pain, gets pain med from nurse. Appearance Patient in bed post tx with nurse call, phone, tray, all needs met. Mental Status Patient Orientation: Person, Confused, Place Transfers Therapy Code Descriptions/Definitions Functional [place] Measure: 0=Not Assessed/NA 4=Minimal Assistance 1=Total Assistance 5=Supervision or Setup 2=Maximal Assistance 6=Modified [place] 3=Moderate Assistance 7=Complete [place] Therapy Quality Codes: 6 Independent with activity with or without an assistive device 5 Patient requires set up or clean up by helper. Patient completes activity by themselves 4 Supervision or touching assist (CGA). [place] provide cues , steadying assist 3 The helper provides less than half the effort to complete the activity 2 The helper provides more than half the effort to complete the activity 1 Dependent. The helper does all the effort to complete an activity 7 Patient refused to complete or attempt activity 9 The patient did not perform the activity before the current illness or injury 88 Not attempted due to Medical conditions or safety concerns Transfers (B, C, W/C) (FIM): 4 Scootin Rollin Supine to/from Sit: 4 Sit to/from Stand: 5 Bed to/from Chair: 5 Weight Bearing Right Lower Extremity: Right Full Weight Bearing Left Lower Extremity: Left Weight Bearing/Tolerated total hip precautions Gait Training Gait (FIM): 5 Distance: 150'x2 Gait Level of Assist: 5 Gait Assistive Device: FWW Slow but steady ambulation Exercises NuStep Minutes: 10 NuStep Workload: 4 (Seat set so patient would not have too much hip flexion and violate hip precautions.) Treatments bed mobility and transfers, ambulation, LE exercises, patient was also toileted once and she was able to get her pants up and down without assist Assessment Current Status: Fair Progress PT Short Term Goals Short Term Goals Time Frame: Oct 12, 2018 Transfers (B,C,W/C) (FIM): 4 Gait (FIM): 1 Gait Distance Comment: 20' Gait Level of Assist: 4 Gait Assistive Device: FWW Wheelchair Distance: 20' PT Splicer Helper Goals Residential Goals PT Splicer Helper Goals Time Frame: October 26, 2018 Transfers (B,C,W/C) (FIM): 5 Sit to Lying (QC): 4 Lying-Sitting on Side/Bed(QC): 4 Sit to Stand (QC): 4 Rollin Roll Left to Right (QC): 4 Chair/Rry-qb-Mywuu Xfer(QC): 4 Car Transfer (QC): 4 Gait (FIM): 2 Distance: 50' Walk 10 feet (QC): 4 Walk 10ft-Uneven Surface(QC): 4 Walk 50ft with 2 Turns (QC): 4 Gait Level of Assist: 5 Gait Assistive Device: FWW Stairs (FIM): 1 # of Steps: 1 1 Step (curb) (QC): 4 Stairs Level Of Assist: 4 PT Plan Problem List Problem List: Activity Tolerance, Functional Strength, Safety, Balance, Gait, Transfer, Bed Mobility, ROM Treatment/Plan Treatment Plan: Continue Plan of Care Treatment Plan: Bed Mobility, Education, Functional Activity Anitra, Functional Strength, Group Therapy, Gait, Safety, Therapeutic Exercise, Transfers Treatment Duration: October 26, 2018 Frequency: At least 5 of 7 days/Wk (IRF) Estimated Hrs Per Day: 1.5 hours per day Patient and/or Family Agrees t: Yes Safety Risks/Education Patient Education: Gait Training, Transfer Techniques, Reviewed Precautions, Correct Positioning, Safety Issues Teaching Recipient: Patient Teaching Methods: Demonstration, Discussion Response to Teaching: Reinforcement Needed Time/GCodes Time In: 1330 Time Out: 1400 Total Billed Treatment Time: 30 Total Billed Treatment 1 visit GT 20' EX 10' EDDIE MOSS PT Oct 12, 2018 13:57
[2018-10-12] MEDS: IRON SUCROSE 200 MG/10 ML (VENOFER) VIAL IV SCH (14:09)
[2018-10-12 16:37] VITALS: BP 131/56
[2018-10-12] MEDS: MELATONIN 3 MG TABLET PO SCH (20:21)
[2018-10-12] MEDS: TOLTERODINE LA 2 MG (DETROL LA) CAP PO SCH (20:21)
[2018-10-12] MEDS: LOPERAMIDE 2 MG (IMODIUM) CAP PO PRN (20:21)
[2018-10-13 04:49] VITALS: BP 134/55
[2018-10-13] MEDS: OMEGA 3 (FISH OIL) 1000 MG CAP PO SCH (06:11)
[2018-10-13] MEDS: MULTIVIT W/MINERALS TAB (THERAGRAN M) PO SCH (06:11)
--- NOTE | 2018-10-13 08:30 | PM&R Progress Note ---
Subjective HPI/CC On Admission Date Seen by Provider: Oct 13, 2018 Time Seen by Provider: 08:45 CC: Left hip fracture with debility HPI: This is an 78-year-old white female patient of Dr. Bello who presented to inpatient rehab after an uncomplicated left hip fracture repair by Dr Mccord. She will need to work on ambulation with walker and obtain return of independent ADL's in order to return home with her . She did not require a transfusion while on acute floor but does require iron infusion due to low iron level with low hemoglobin. Checked meds and labs and therapy notes. Patient has improved pain on pain meds. No chest pain or dyspnea. Reviewed list of diagnosis. PLOF was independent an currently 1 person assist. Subjective/Events-last exam Incision looks really good She does have a blister from the tape so will DC the tape Pain is requested for right shoulder pain Overall feeling very well DC planning very soon Finished with Venofer Doesn't hardly take Hydrocodone anymore and that is helping the subtle confusion Reviewed therapy and nursing notes Review of Systems Musculoskeletal: back pain, leg pain Objective Exam Vital Signs Vital Signs Date Time Temp Pulse Resp B/P (MAP) Pulse Ox O2 Delivery O2 Flow Rate FiO2 10/13/18 17:36 98.6 64 18 120/65 (83) 95 Room Air Capillary Refill : Less Than 3 Seconds General Appearance: No Apparent Distress, WD/WN, Chronically ill, Thin HEENT: PERRL/EOMI, Normal ENT Inspection, Pharynx Normal, Moist Mucous Membranes Neck: Full Range of Motion, Normal Inspection, Non Tender, Supple Respiratory: Chest Non Tender, Lungs Clear, Normal Breath Sounds, No Accessory Muscle Use, No Respiratory Distress Cardiovascular: Regular Rate, Rhythm, No Edema, No Gallop, No JVD, No Murmur Gastrointestinal: Normal Bowel Sounds, No Organomegaly, No Pulsatile Mass, Non Tender, Soft Back: Normal Inspection, No CVA Tenderness, No Vertebral Tenderness Extremity: Normal Capillary Refill, Normal Inspection, Normal Range of Motion ( decreased ROM left leg), Non Tender, No Calf Tenderness, No Pedal Edema Neurologic/Psychiatric: Alert, Oriented x3, No Motor/Sensory Deficits, Normal Mood/Affect Skin: Normal Color, Warm/Dry Lymphatic: No Adenopathy Results/Procedures Lab Patient resulted labs reviewed. FIM Transfers Therapy Code Descriptions/Definitions Functional [place] Measure: 0=Not Assessed/NA 4=Minimal Assistance 1=Total Assistance 5=Supervision or Setup 2=Maximal Assistance 6=Modified [place] 3=Moderate Assistance 7=Complete [place] Therapy Quality Codes: 6 Independent with activity with or without an assistive device 5 Patient requires set up or clean up by helper. Patient completes activity by themselves 4 Supervision or touching assist (CGA). [place] provide cues , steadying assist 3 The helper provides less than half the effort to complete the activity 2 The helper provides more than half the effort to complete the activity 1 Dependent. The helper does all the effort to complete an activity 7 Patient refused to complete or attempt activity 9 The patient did not perform the activity before the current illness or injury 88 Not attempted due to Medical conditions or safety concerns Mental Status/Objective Comprehension: 7 Expression: 7 Social Interaction: 7 Problem Solvin Memory: 7 ADL-Treatment Feedin Eating (QC): 6 Groomin Oral Hygiene (QC): 4 Bathin Shower/Bathe Self (QC): 3 Upper Extremity Dressin Upper Body Dressing (QC): 4 Lower Extremity Dressin (Min assist to don slipper socks with sock aide. Pt. requires cues to complete correctly. Declines shoes.) Lower Body Dressing (QC): 4 On/Off Footwear (QC): 4 Toiletin Toileting Hygiene (QC): 3 Toilet/Commode Transfer: 4 Toilet Transfer (QC): 4 Shower: 4 Assessment/Plan Assessment and Plan Assess & Plan/Chief Complaint (1) Hip fracture, left s/p repair Status: Acute (2) Hypertension Status: Chronic (3) Osteoarthritis Status: Chronic (4) Insomnia Status: Chronic (5) History of humerus fracture Status: Chronic (6) History of bowel resection Status: Chronic (7) Overactive bladder Status: Chronic (8) Acute blood loss anemia Status: Acute Plan: IRF protocol Return to independent activity prior to DC home with his Monitor subtle confusion but it seems to be clearing Pain control with Lortab but uses it minimally Venofer completed yesterday total of 1 gram of iron Kpad for left trapezium muscle spasm prn Baclofen seems to be helping also Monitor subtle confusion (1) Hip fracture, left (2) Insomnia (3) Acute blood loss anemia (4) Humeral fracture (5) Osteoarthritis (6) Hypertension (7) Overactive bladder (8) History of humerus fracture (9) History of bowel resection LUIS FELIPE COREAS DO Oct 13, 2018 08:30
--- NOTE | 2018-10-13 08:58 | Physical Therapy Daily Note ---
PT Daily Note-Current Subjective Pt. agrees to rx and states she is not having any pain this date unless she is TRFing or attempting certain exercises Pain Location: No Pain Reported Mental Status Patient Orientation: Person, Place, Time, Situation pt. has memory and cognitive issues Transfers Therapy Code Descriptions/Definitions Functional [place] Measure: 0=Not Assessed/NA 4=Minimal Assistance 1=Total Assistance 5=Supervision or Setup 2=Maximal Assistance 6=Modified E[place] 3=Moderate Assistance 7=Complete [place] Therapy Quality Codes: 6 Independent with activity with or without an assistive device 5 Patient requires set up or clean up by helper. Patient completes activity by themselves 4 Supervision or touching assist (CGA). [place] provide cues , steadying assist 3 The helper provides less than half the effort to complete the activity 2 The helper provides more than half the effort to complete the activity 1 Dependent. The helper does all the effort to complete an activity 7 Patient refused to complete or attempt activity 9 The patient did not perform the activity before the current illness or injury 88 Not attempted due to Medical conditions or safety concerns Transfers (B, C, W/C) (FIM): 6 Scootin Rollin Supine to/from Sit: 6 Sit to/from Stand: 6 Weight Bearing Right Lower Extremity: Right Full Weight Bearing Left Lower Extremity: Left Weight Bearing/Tolerated total hip precautions Gait Training Does the Patient Walk?: Yes Gait (FIM): 5 Distance (FIM): 3=150 ft (x2) Gait Level of Assist: 5 Gait Persons Needed: 1 Gait Assistive Device: FWW Pt. needs much instruction and forgets but does request to be drilled again and wanted written illustrated exercises for weekend and HEP Stair Training Stair Training: Handrails/: 2 handrails Stairs (FIM): 2 #of Steps: 4 Stairs: Pattern: Step to Level of Assist: 4 needs many cues for sequence and safety Exercises Supine Ex: Ankle pumps, Quad Set, Rolling, Glut sets, Heel Slides, Short Arc Quads, Scooting, Straight leg raise (assist), Hip abd/add Supine Reps: 15 NuStep Minutes: 12 NuStep Workload: 2 Assessment Current Status: Good Progress pt. needs instruction for all secondary to poor memory and problem solving PT Short Term Goals Short Term Goals Time Frame: Oct 12, 2018 Transfers (B,C,W/C) (FIM): 4 Gait (FIM): 1 Gait Distance Comment: 20' Gait Level of Assist: 4 Gait Assistive Device: FWW Wheelchair Distance: 20' PT Executive Vice President And Chief Financial Officer Goals Longterm Goals PT Executive Vice President And Chief Financial Officer Goals Time Frame: October 26, 2018 Transfers (B,C,W/C) (FIM): 5 Sit to Lying (QC): 4 Lying-Sitting on Side/Bed(QC): 4 Sit to Stand (QC): 4 Rollin Roll Left to Right (QC): 4 Chair/Kpz-xm-Monke Xfer(QC): 4 Car Transfer (QC): 4 Gait (FIM): 2 Distance: 50' Walk 10 feet (QC): 4 Walk 10ft-Uneven Surface(QC): 4 Walk 50ft with 2 Turns (QC): 4 Gait Level of Assist: 5 Gait Assistive Device: FWW Stairs (FIM): 1 # of Steps: 1 1 Step (curb) (QC): 4 Stairs Level Of Assist: 4 PT Plan Treatment/Plan Treatment Plan: Continue Plan of Care Treatment Plan: Bed Mobility, Education, Functional Activity Anitra, Functional Strength, Group Therapy, Gait, Safety, Therapeutic Exercise, Transfers Treatment Duration: October 26, 2018 Frequency: At least 5 of 7 days/Wk (IRF) Estimated Hrs Per Day: 1.5 hours per day Patient and/or Family Agrees t: Yes Safety Risks/Education Patient Education: Gait Training, Transfer Techniques, Steps, Correct Positioning, Disease Process, Safety Issues Teaching Recipient: Patient Teaching Methods: Demonstration, Discussion Response to Teaching: Verbalize Understanding, Return Demonstration, Reinforcement Needed Time/GCodes Time In: 800 Time Out: 900 Total Billed Treatment Time: 60 Total Billed Treatment 1,EX30m,GT15m,FA15m G Codes Necessary: NATALIE Palacios RIG MANAGER Oct 13, 2018 08:58
[2018-10-13] MEDS: ATENOLOL 50 MG (TENORMIN) TAB PO SCH (09:00)
--- NOTE | 2018-10-13 09:49 | Occupational Ther Daily Note ---
OT Current Status-Daily Note Subjective Pt in bed, agrees to therapy. Pt reports 3/10 pain in left hip. Mental Status/Objective Therapy Code Descriptions/Definitions Functional [place] Measure: 0=Not Assessed/NA 4=Minimal Assistance 1=Total Assistance 5=Supervision or Setup 2=Maximal Assistance 6=Modified [place] 3=Moderate Assistance 7=Complete [place] ADL-Treatment Pt supine to sit using bed rail. Sit to stand and transfer to chair with FWW. Pt declined shower, but would like a sponge bath and to change clothes. Pt doffed shirt without assist. Used dressing stick to doff lower body clothing. Upper body bathing completed with set up. Pt able to wash bilateral upper legs, mitch area, and buttocks. Required assist for lower legs and feet secondary to hip precautions. Don pullover shirt with set up. Pt used booster assembler to start Depends and pants over feet. Stood with supervision during pant hike. Donned bilateral socks with set up using sock aid. Gait to restroom with FWW. Pt stood at sink to brush teeth with modified independence. Transfer to [facility] over toilet with SBA. Pt able to complete clothing management and toileting hygiene with SBA. Stood at sink to wash hands without assist. Therapy Code Descriptions/Definitions Functional [place] Measure: 0=Not Assessed/NA 4=Minimal Assistance 1=Total Assistance 5=Supervision or Setup 2=Maximal Assistance 6=Modified [place] 3=Moderate Assistance 7=Complete [place] Therapy Quality Codes: 6 Independent with activity with or without an assistive device 5 Patient requires set up or clean up by helper. Patient completes activity by themselves 4 Supervision or touching assist (CGA). [place] provide cues , steadying assist 3 The helper provides less than half the effort to complete the activity 2 The helper provides more than half the effort to complete the activity 1 Dependent. The helper does all the effort to complete an activity 7 Patient refused to complete or attempt activity 9 The patient did not perform the activity before the current illness or injury 88 Not attempted due to Medical conditions or safety concerns Grooming (FIM): 6 Oral Hygiene (QC): 6 Bathing (FIM): 4 Shower/Bathe Self (QC): 3 Upper Body (FIM): 5 Upper Body Dressing (QC): 5 Lower Body Dressing (FIM): 5 Lower Body Dressing (QC): 4 On/Off Footwear (QC): 5 Toileting (FIM): 5 Toilet/Commode Transfer (FIM): 5 Other Treatment Gait to therapy gym with FWW, no LOB noted. Pt completed graded clothespin activity with bilateral hands to increase mastic worker/pinch strength for ADL tasks. Arm bike x10 minutes to increase strength and activity tolerance needed for ADLs and transfers. Pt completed task with moderate resistance and slow pace. No rest breaks needed. Pt performed gait back to room with FWW. Transfer to bed with SBA. Pt required min assist for left LE during sit to supine. Pt resting in bed with needs met after session. OT Short Term Goals Short Term Goals Grooming(FIM): 5 Bathing(FIM): 5 Bathing Location: L Arm, R Arm, L Upper Leg, R Upper Leg, L Lower Leg ( including foot), R Lower Leg (including foot), Chest, Abdomen, Buttocks, Perineal Area Upper Body Dressing(FIM): 5 Lower Body Dressing(FIM): 5 Toileting(FIM): 5 Transfers (B,C,W/C) (FIM): 4 Toilet/Commode Transfer(FIM): 4 Tub Transfer(FIM): 4 1=Demonstrate adherence to instructed precautions during ADL tasks. 2=Patient will verbalize/demonstrate understanding of assistive devices/ modifications for ADL. 3=Patient will improve strength/tolerance for activity to enable patient to perform ADL's. OT Intermediate Goals Intermediate Goals Eating (FIM): 7 Eating (QC): 6 Groomin Oral Hygiene (QC): 6 Bathing(FIM): 6 Bathing Location: L Arm, R Arm, L Upper Leg, R Upper Leg, L Lower Leg ( including foot), R Lower Leg (including foot), Chest, Abdomen, Buttocks, Perineal Area Shower/Bathe Self (QC): 6 Upper Body Dressing(FIM): 6 Upper Body Dressing (QC): 6 Lower Body Dressing(FIM): 6 Lower Body Dressing (QC): 6 On/Off Footwear (QC): 6 Toileting(FIM): 6 Toileting Hygiene (QC): 6 Transfers (B,C,W/C) (FIM): 6 Toilet/Commode Transfer(FIM): 6 Toilet/Commode Transfer (QC): 6 Shower Transfer(FIM): 6 Additional Goals: 1-Demonstrate ADL Tasks, 2-Verbalize Understanding, 3- ImproveStrength/Anitra 1=Demonstrate adherence to instructed precautions during ADL tasks. 2=Patient will verbalize/demonstrate understanding of assistive devices/ modifications for ADL. 3=Patient will improve strength/tolerance for activity to enable patient to perform ADL's. OT Education/Plan Discharge Recommendations Plan/Recommendations: Continue POC Treatment Plan/Plan of Care Patient would benefit from OT for education, treatment and training to promote independence in ADL's, mobility, safety and/or upper extremity function for ADL' s. Plan of Care: ADL Retraining, Caregiver Training, Concurrent Therapy, Functional Mobility, Group Exercise/Act as Ind, UE Funct Exercise/Act Treatment Duration: November 02, 2018 Frequency: At least 5 of 7 days/Wk (IRF) Estimated Hrs Per Day: 1.5 hours per day Agreement: Yes Rehab Potential: Good Time/GCodes Start Time: 09:00 Stop Time: 10:00 Total Time Billed (hr/min): 60 Billed Treatment Time 1 visit, ADLx2(35minutes), EXx2(25minutes) ALEX BRUCE OT Oct 13, 2018 09:49
[2018-10-13] MEDS: TOLTERODINE LA 4 MG (DETROL) CAP PO SCH (10:08)
[2018-10-13] MEDS: LORATADINE (CLARITIN) 10 MG TAB PO SCH (10:08)
[2018-10-13] MEDS: ENOXAPARIN 40 MG/0.4 ML (LOVENOX) SYR SC SCH (10:08)
[2018-10-13 10:09] VITALS: BP 114/53
[2018-10-13] MEDS: LIDOCAINE 4% (SALONPAS) PATCH TOP SCH (13:00)
[2018-10-13] MEDS: HYDROcodone/APAP 5 MG/325 MG (LORTAB) TAB PO PRN ×2 (14:12→20:22)
--- NOTE | 2018-10-13 14:33 | Therapy Group Daily Note ---
Therapy Daily Group Note Patient Education Topic Home Safety, Fall Prevention, Energy Cons Session Ratio (pt:therapist): 4:1 Goal of Session: Energy Conservation Tech., Home Safety Strategies Goal Met for this Session: Yes Pt Benefit of Group: F/U Use of Strategies @Home, Increased Functional Safety, Recognition of Peers, Socialization Other/Notes Pt ambulated to OT group this pm with FWW. Pt introduced self to group for socialization. Education was provided regarding home safety including potential hazards and solutions for common problem areas in the home. Education also included energy conservation during functional tasks.Pt actively listened to education and states understanding. Pt contributed appropriately to group discussion and shared modifications made to own home to increase safety. Pt returned to room with needs met after session. Start Time: 13:00 Stop Time: 14:00 Total Billed Treatment Time: 60 Total Billed Treatment 1 visit, GRP(60minutes) ALEX BRUCE OT Oct 13, 2018 14:33
[2018-10-13 17:36] VITALS: BP 120/65
[2018-10-13] MEDS: LIDOCAINE PATCH REMOVAL TP SCH (20:21)
[2018-10-13] MEDS: TOLTERODINE LA 2 MG (DETROL LA) CAP PO SCH (20:21)
[2018-10-13] MEDS: MELATONIN 3 MG TABLET PO SCH (20:21)
[2018-10-14] MEDS: HYDROcodone/APAP 5 MG/325 MG (LORTAB) TAB PO PRN ×5 (00:50→22:14)
[2018-10-14] MEDS: MULTIVIT W/MINERALS TAB (THERAGRAN M) PO SCH (04:55)
[2018-10-14] MEDS: OMEGA 3 (FISH OIL) 1000 MG CAP PO SCH (04:55)
[2018-10-14 05:55] VITALS: BP 137/68
--- NOTE | 2018-10-14 08:52 | PM&R Progress Note ---
Subjective HPI/CC On Admission Date Seen by Provider: Oct 14, 2018 Time Seen by Provider: 07:00 CC: Left hip fracture with debility HPI: This is an 78-year-old white female patient of Dr. Bello who presented to inpatient rehab after an uncomplicated left hip fracture repair by Dr Mccord. She will need to work on ambulation with walker and obtain return of independent ADL's in order to return home with her . She did not require a transfusion while on acute floor but does require iron infusion due to low iron level with low hemoglobin. Checked meds and labs and therapy notes. Patient has improved pain on pain meds. No chest pain or dyspnea. Reviewed list of diagnosis. PLOF was independent an currently 1 person assist. Subjective/Events-last exam No concern about the incision Bowels are moving properly Pain is much improved Overall participating in therapy and getting stronger every day Completed iron infusions Using incentive spirometer Check meds and labs Conferred with RN Reviewed therapy notes Objective Exam Vital Signs Vital Signs Date Time Temp Pulse Resp B/P (MAP) Pulse Ox O2 Delivery O2 Flow Rate FiO2 10/14/18 16:20 99.7 65 18 143/67 (92) 94 Room Air Capillary Refill : Less Than 3 Seconds General Appearance: No Apparent Distress, WD/WN, Chronically ill, Thin HEENT: PERRL/EOMI, Normal ENT Inspection, Pharynx Normal, Moist Mucous Membranes Neck: Full Range of Motion, Normal Inspection, Non Tender, Supple Respiratory: Chest Non Tender, Lungs Clear, Normal Breath Sounds, No Accessory Muscle Use, No Respiratory Distress Cardiovascular: Regular Rate, Rhythm, No Edema, No Gallop, No JVD, No Murmur Gastrointestinal: Normal Bowel Sounds, No Organomegaly, No Pulsatile Mass, Non Tender, Soft Back: Normal Inspection, No CVA Tenderness, No Vertebral Tenderness Extremity: Normal Capillary Refill, Normal Inspection, Normal Range of Motion ( decreased ROM left leg), Non Tender, No Calf Tenderness, No Pedal Edema Neurologic/Psychiatric: Alert, Oriented x3, No Motor/Sensory Deficits, Normal Mood/Affect Skin: Normal Color, Warm/Dry Lymphatic: No Adenopathy Results/Procedures Lab Patient resulted labs reviewed. FIM Transfers Therapy Code Descriptions/Definitions Functional [place] Measure: 0=Not Assessed/NA 4=Minimal Assistance 1=Total Assistance 5=Supervision or Setup 2=Maximal Assistance 6=Modified [place] 3=Moderate Assistance 7=Complete [place] Therapy Quality Codes: 6 Independent with activity with or without an assistive device 5 Patient requires set up or clean up by helper. Patient completes activity by themselves 4 Supervision or touching assist (CGA). [place] provide cues , steadying assist 3 The helper provides less than half the effort to complete the activity 2 The helper provides more than half the effort to complete the activity 1 Dependent. The helper does all the effort to complete an activity 7 Patient refused to complete or attempt activity 9 The patient did not perform the activity before the current illness or injury 88 Not attempted due to Medical conditions or safety concerns Mental Status/Objective Comprehension: 7 Expression: 7 Social Interaction: 7 Problem Solvin Memory: 7 ADL-Treatment Feedin Eating (QC): 6 Groomin Oral Hygiene (QC): 6 Bathin Shower/Bathe Self (QC): 3 Upper Extremity Dressin Upper Body Dressing (QC): 5 Lower Extremity Dressin Lower Body Dressing (QC): 4 On/Off Footwear (QC): 5 Toiletin Toileting Hygiene (QC): 3 Toilet/Commode Transfer: 5 Toilet Transfer (QC): 4 Shower: 4 Assessment/Plan Assessment and Plan Assess & Plan/Chief Complaint (1) Hip fracture, left s/p repair Status: Acute (2) Hypertension Status: Chronic (3) Osteoarthritis Status: Chronic (4) Insomnia Status: Chronic (5) History of humerus fracture Status: Chronic (6) History of bowel resection Status: Chronic (7) Overactive bladder Status: Chronic (8) Acute blood loss anemia Status: Acute Plan: IRF protocol Return to independent activity prior to DC home with his Monitor subtle confusion but it seems to be clearing Pain control with Lortab but uses it minimally Venofer completed yesterday total of 1 gram of iron Kpad for left trapezium muscle spasm prn Baclofen seems to be helping also Monitor subtle confusion (1) Hip fracture, left (2) Insomnia (3) Acute blood loss anemia (4) Humeral fracture (5) Osteoarthritis (6) Hypertension (7) Overactive bladder (8) History of humerus fracture (9) History of bowel resection LUIS FELIPE COREAS DO Oct 14, 2018 08:52
[2018-10-14 08:59] VITALS: BP 130/52
[2018-10-14] MEDS: TOLTERODINE LA 4 MG (DETROL) CAP PO SCH (09:03)
[2018-10-14] MEDS: ATENOLOL 50 MG (TENORMIN) TAB PO SCH (09:03)
[2018-10-14] MEDS: LORATADINE (CLARITIN) 10 MG TAB PO SCH (09:03)
[2018-10-14] MEDS: LIDOCAINE 4% (SALONPAS) PATCH TOP SCH (09:03)
[2018-10-14] MEDS: ENOXAPARIN 40 MG/0.4 ML (LOVENOX) SYR SC SCH (09:04)
--- NOTE | 2018-10-14 12:56 | Physical Therapy Daily Note ---
PT Daily Note-Current Subjective pt in good spirits this session. She was reviewing her home exercises upon my arrival. Mental Status Patient Orientation: Person, Place Transfers Therapy Code Descriptions/Definitions Functional [place] Measure: 0=Not Assessed/NA 4=Minimal Assistance 1=Total Assistance 5=Supervision or Setup 2=Maximal Assistance 6=Modified [place] 3=Moderate Assistance 7=Complete [place] Therapy Quality Codes: 6 Independent with activity with or without an assistive device 5 Patient requires set up or clean up by helper. Patient completes activity by themselves 4 Supervision or touching assist (CGA). [place] provide cues , steadying assist 3 The helper provides less than half the effort to complete the activity 2 The helper provides more than half the effort to complete the activity 1 Dependent. The helper does all the effort to complete an activity 7 Patient refused to complete or attempt activity 9 The patient did not perform the activity before the current illness or injury 88 Not attempted due to Medical conditions or safety concerns Transfers (B, C, W/C) (FIM): 4 Weight Bearing Right Lower Extremity: Right Full Weight Bearing Left Lower Extremity: Left Weight Bearing/Tolerated total hip precautions Gait Training Distance: 200 Gait Level of Assist: 4 Gait Persons Needed: 1 Gait Assistive Device: FWW Education on hip precautions. Ambulate 200ft x 2 Exercises Supine Ex: LE Protocol Supine Reps: 10 Standing: Hip Abduction, Heel/toe raises, 3 way Ex=Flex, Abd, Ext Standing Reps: 10 Assessment Current Status: Good Progress Pt demonstrated good walker safety this session. She was compliant with hip precautions. Pt will benefit from therapy to promote dc back to prior living arrangment. PT Short Term Goals Short Term Goals Time Frame: Oct 12, 2018 Transfers (B,C,W/C) (FIM): 4 Gait (FIM): 1 Gait Distance Comment: 20' Gait Level of Assist: 4 Gait Assistive Device: FWW Wheelchair Distance: 20' PT Attraction Worker Goals Fdc Goals PT Attraction Worker Goals Time Frame: October 26, 2018 Transfers (B,C,W/C) (FIM): 5 Sit to Lying (QC): 4 Lying-Sitting on Side/Bed(QC): 4 Sit to Stand (QC): 4 Rollin Roll Left to Right (QC): 4 Chair/Bdq-kf-Tchvl Xfer(QC): 4 Car Transfer (QC): 4 Gait (FIM): 2 Distance: 50' Walk 10 feet (QC): 4 Walk 10ft-Uneven Surface(QC): 4 Walk 50ft with 2 Turns (QC): 4 Gait Level of Assist: 5 Gait Assistive Device: FWW Stairs (FIM): 1 # of Steps: 1 1 Step (curb) (QC): 4 Stairs Level Of Assist: 4 PT Plan Treatment/Plan Treatment Plan: Continue Plan of Care Treatment Plan: Bed Mobility, Education, Functional Activity Anitra, Functional Strength, Group Therapy, Gait, Safety, Therapeutic Exercise, Transfers Treatment Duration: October 26, 2018 Frequency: At least 5 of 7 days/Wk (IRF) Estimated Hrs Per Day: 1.5 hours per day Patient and/or Family Agrees t: Yes Time/GCodes Time In: 832 Time Out: 857 Total Billed Treatment Time: 25 Total Billed Treatment visit, gait 15 min, ex 10 min MACK MEJIA PT Oct 14, 2018 12:56
[2018-10-14] MEDS ORDERED: NON-FORMULARY MEDICATION 1 EA EA PO PRN (14:00)
[2018-10-14 16:20] VITALS: BP 143/67
--- NOTE | 2018-10-14 19:19 | NUR ---
bedside report received from GEORGIE HU, assume care of pt
--- NOTE | 2018-10-14 20:50 | NUR ---
assessments & interventions completed, see assessments & interventions, had this nurse apply [employer]percre[employer]
[2018-10-14] MEDS: MELATONIN 3 MG TABLET PO SCH (21:00)
[2018-10-14] MEDS: TOLTERODINE LA 2 MG (DETROL LA) CAP PO SCH (21:00)
[2018-10-14] MEDS: LIDOCAINE PATCH REMOVAL TP SCH (21:03)
[2018-10-14] MEDS: ASPERCREME WITH LIDOCAINE TP PRN (21:03)
--- NOTE | 2018-10-14 22:14 | NUR ---
c/o lt hip pain level 5/10 on numeric scale, lortab 5 1 tab po given
--- NOTE | 2018-10-14 22:40 | NUR ---
pain level 2/10 on numeric scale
[2018-10-15 05:46] VITALS: BP 147/60
[2018-10-15] MEDS: OMEGA 3 (FISH OIL) 1000 MG CAP PO SCH (06:48)
[2018-10-15] MEDS: HYDROcodone/APAP 5 MG/325 MG (LORTAB) TAB PO PRN ×2 (06:49→17:48)
[2018-10-15] MEDS: MULTIVIT W/MINERALS TAB (THERAGRAN M) PO SCH (06:49)
--- NOTE | 2018-10-15 06:49 | NUR ---
c/o lt hip pain level 5/10 on numeric scale, lortab 5 1 tab po given
--- NOTE | 2018-10-15 07:22 | NUR ---
bedside report given to GEORGIE HU
--- NOTE | 2018-10-15 07:30 | PM&R Progress Note ---
Subjective HPI/CC On Admission Date Seen by Provider: Oct 15, 2018 Time Seen by Provider: 07:15 CC: Left hip fracture with debility HPI: This is an 78-year-old white female patient of Dr. Bello who presented to inpatient rehab after an uncomplicated left hip fracture repair by Dr Mccord. She will need to work on ambulation with walker and obtain return of independent ADL's in order to return home with her . She did not require a transfusion while on acute floor but does require iron infusion due to low iron level with low hemoglobin. Checked meds and labs and therapy notes. Patient has improved pain on pain meds. No chest pain or dyspnea. Reviewed list of diagnosis. PLOF was independent an currently 1 person assist. Subjective/Events-last exam Patient does not seem to be too active and doesn't like to move around much out of bed or chair Bowels are moving properly but requesting Miralax so I updated the nurse Pain is much improved Overall participating in therapy and getting stronger every day Completed iron infusions Using incentive spirometer Check meds and labs Conferred with RN Reviewed therapy notes Objective Exam Vital Signs Vital Signs Date Time Temp Pulse Resp B/P (MAP) Pulse Ox O2 Delivery O2 Flow Rate FiO2 10/15/18 17:22 99.8 64 18 117/73 (88) 95 Room Air Capillary Refill : Less Than 3 Seconds General Appearance: No Apparent Distress, WD/WN, Chronically ill, Thin HEENT: PERRL/EOMI, Normal ENT Inspection, Pharynx Normal, Moist Mucous Membranes Neck: Full Range of Motion, Normal Inspection, Non Tender, Supple Respiratory: Chest Non Tender, Lungs Clear, Normal Breath Sounds, No Accessory Muscle Use, No Respiratory Distress Cardiovascular: Regular Rate, Rhythm, No Edema, No Gallop, No JVD, No Murmur Gastrointestinal: Normal Bowel Sounds, No Organomegaly, No Pulsatile Mass, Non Tender, Soft Back: Normal Inspection, No CVA Tenderness, No Vertebral Tenderness Extremity: Normal Capillary Refill, Normal Inspection, Normal Range of Motion ( decreased ROM left leg), Non Tender, No Calf Tenderness, No Pedal Edema Neurologic/Psychiatric: Alert, Oriented x3, No Motor/Sensory Deficits, Normal Mood/Affect Skin: Normal Color, Warm/Dry Lymphatic: No Adenopathy Results/Procedures Lab Patient resulted labs reviewed. FIM Transfers Therapy Code Descriptions/Definitions Functional [place] Measure: 0=Not Assessed/NA 4=Minimal Assistance 1=Total Assistance 5=Supervision or Setup 2=Maximal Assistance 6=Modified [place] 3=Moderate Assistance 7=Complete [place] Therapy Quality Codes: 6 Independent with activity with or without an assistive device 5 Patient requires set up or clean up by helper. Patient completes activity by themselves 4 Supervision or touching assist (CGA). [place] provide cues , steadying assist 3 The helper provides less than half the effort to complete the activity 2 The helper provides more than half the effort to complete the activity 1 Dependent. The helper does all the effort to complete an activity 7 Patient refused to complete or attempt activity 9 The patient did not perform the activity before the current illness or injury 88 Not attempted due to Medical conditions or safety concerns Mental Status/Objective Comprehension: 7 Expression: 7 Social Interaction: 7 Problem Solvin Memory: 7 ADL-Treatment Feedin Eating (QC): 6 Groomin Oral Hygiene (QC): 6 Bathin Shower/Bathe Self (QC): 3 Upper Extremity Dressin Upper Body Dressing (QC): 5 Lower Extremity Dressin Lower Body Dressing (QC): 4 On/Off Footwear (QC): 5 Toiletin Toileting Hygiene (QC): 3 Toilet/Commode Transfer: 5 Toilet Transfer (QC): 4 Shower: 4 Assessment/Plan Assessment and Plan Assess & Plan/Chief Complaint (1) Hip fracture, left s/p repair Status: Acute (2) Hypertension Status: Chronic (3) Osteoarthritis Status: Chronic (4) Insomnia Status: Chronic (5) History of humerus fracture Status: Chronic (6) History of bowel resection Status: Chronic (7) Overactive bladder Status: Chronic (8) Acute blood loss anemia Status: Acute Plan: IRF protocol Return to independent activity prior to DC home with his Monitor subtle confusion but it seems to be clearing Pain control with Lortab but uses it minimally Venofer completed yesterday total of 1 gram of iron Kpad for left trapezium muscle spasm prn Baclofen seems to be helping also Monitor subtle confusion (1) Hip fracture, left (2) Insomnia (3) Acute blood loss anemia (4) Humeral fracture (5) Osteoarthritis (6) Hypertension (7) Overactive bladder (8) History of humerus fracture (9) History of bowel resection LUIS FELIPE COREAS DO Oct 15, 2018 07:29
[2018-10-15] MEDS: ATENOLOL 50 MG (TENORMIN) TAB PO SCH (10:09)
[2018-10-15] MEDS: TOLTERODINE LA 4 MG (DETROL) CAP PO SCH (10:10)
[2018-10-15] MEDS: ENOXAPARIN 40 MG/0.4 ML (LOVENOX) SYR SC SCH (10:11)
[2018-10-15] MEDS: LIDOCAINE 4% (SALONPAS) PATCH TOP SCH (10:11)
[2018-10-15] MEDS: LORATADINE (CLARITIN) 10 MG TAB PO SCH (10:11)
[2018-10-15] MEDS: LACTASE ENZYME PO PRN (12:47)
[2018-10-15] MEDS: BACLOFEN 10 MG (LIORESAL) TAB PO PRN (13:05)
[2018-10-15] MEDS: POLYETHYLENE GLYCOL 17 GM (MIRALAX) PACK PO PRN (13:05)
[2018-10-15 17:22] VITALS: BP 117/73
[2018-10-15] MEDS: MELATONIN 3 MG TABLET PO SCH (20:17)
[2018-10-15] MEDS: TOLTERODINE LA 2 MG (DETROL LA) CAP PO SCH (20:17)
[2018-10-15] MEDS: LIDOCAINE PATCH REMOVAL TP SCH (20:18)
[2018-10-16 05:30] VITALS: BP 150/69
[2018-10-16 05:47] LABS: BASOPHILS % (AUTO) 0 % (0-10); EOSINOPHILS # (AUTO) 0.2 10^3/uL (0.0-0.3); EOSINOPHILS % (AUTO) 4 % (0-10); HEMATOCRIT 29 % (35-52); HEMOGLOBIN 9.1 G/DL (11.5-16.0); LYMPHOCYTES # (AUTO) 1.1 X 10^3 (1.0-4.0); LYMPHOCYTES % (AUTO) 19 % (12-44); MEAN CORPUSCULAR HEMOGLOBIN 28 PG (25-34); MEAN CORPUSCULAR HGB CONC 31 G/DL (32-36); MEAN CORPUSCULAR VOLUME 89 FL (80-99); MEAN PLATELET VOLUME 9.4 FL (7.4-10.4); MONOCYTES # (AUTO) 0.5 X 10^3 (0.0-1.0); MONOCYTES % (AUTO) 9 % (0-12); NEUTROPHILS # (AUTO) 3.9 X 10^3 (1.8-7.8); NEUTROPHILS % (AUTO) 68 % (42-75); PLATELET COUNT 338 10^3/uL (130-400); RED CELL DISTRIBUTION WIDTH 16.5 % (10.0-14.5); WHITE BLOOD COUNT 5.7 10^3/uL (4.3-11.0)
[2018-10-16 06:05] LABS: ALANINE AMINOTRANSFERASE 25 U/L (0-55); ALKALINE PHOSPHATASE 100 U/L (40-136); BILIRUBIN,TOTAL 0.4 MG/DL (0.1-1.0); BUN/CREATININE RATIO 15; CALCIUM 9.7 MG/DL (8.5-10.1); CARBON DIOXIDE 20 MMOL/L (21-32); CHLORIDE 106 MMOL/L (98-107); GFR ESTIMATED > 60; GLUCOSE 122 MG/DL (70-105); POTASSIUM 3.6 MMOL/L (3.6-5.0); SODIUM 138 MMOL/L (135-145); TOTAL PROTEIN 5.4 GM/DL (6.4-8.2)
[2018-10-16] MEDS: MULTIVIT W/MINERALS TAB (THERAGRAN M) PO SCH (06:08)
[2018-10-16] MEDS: OMEGA 3 (FISH OIL) 1000 MG CAP PO SCH (06:08)
--- NOTE | 2018-10-16 08:28 | PM&R Progress Note ---
Subjective HPI/CC On Admission Date Seen by Provider: Oct 16, 2018 Time Seen by Provider: 08:30 CC: Left hip fracture with debility HPI: This is an 78-year-old white female patient of Dr. Bello who presented to inpatient rehab after an uncomplicated left hip fracture repair by Dr Mccord. She will need to work on ambulation with walker and obtain return of independent ADL's in order to return home with her . She did not require a transfusion while on acute floor but does require iron infusion due to low iron level with low hemoglobin. Checked meds and labs and therapy notes. Patient has improved pain on pain meds. No chest pain or dyspnea. Reviewed list of diagnosis. PLOF was independent an currently 1 person assist. Subjective/Events-last exam Blister around the incision is resolving Hgb remains at 9.1 finished 4 out of the 5 Venofer infusions Labs were reviewed and all okay Bowels are moving better, they are either too loose or too constipated Pain is well controlled Encouraging pt to become as active as she can prior to DC Conferred with RN Reviewed all therapy notes Review of Systems General: Fatigue Musculoskeletal: leg pain Objective Exam Vital Signs Vital Signs Date Time Temp Pulse Resp B/P (MAP) Pulse Ox O2 Delivery O2 Flow Rate FiO2 10/16/18 18:53 98.0 69 18 137/71 (93) 94 Room Air Capillary Refill : Less Than 3 Seconds General Appearance: No Apparent Distress, WD/WN, Chronically ill, Thin HEENT: PERRL/EOMI, Normal ENT Inspection, Pharynx Normal, Moist Mucous Membranes Neck: Full Range of Motion, Normal Inspection, Non Tender, Supple Respiratory: Chest Non Tender, Lungs Clear, Normal Breath Sounds, No Accessory Muscle Use, No Respiratory Distress Cardiovascular: Regular Rate, Rhythm, No Edema, No Gallop, No JVD, No Murmur Gastrointestinal: Normal Bowel Sounds, No Organomegaly, No Pulsatile Mass, Non Tender, Soft Back: Normal Inspection, No CVA Tenderness, No Vertebral Tenderness Extremity: Normal Capillary Refill, Normal Inspection, Normal Range of Motion ( decreased ROM left leg), Non Tender, No Calf Tenderness, No Pedal Edema Neurologic/Psychiatric: Alert, Oriented x3, No Motor/Sensory Deficits, Normal Mood/Affect Skin: Normal Color, Warm/Dry Lymphatic: No Adenopathy Results/Procedures Lab Laboratory Tests 10/16/18 05:20 10/16/18 05:25 Patient resulted labs reviewed. FIM Transfers Therapy Code Descriptions/Definitions Functional [place] Measure: 0=Not Assessed/NA 4=Minimal Assistance 1=Total Assistance 5=Supervision or Setup 2=Maximal Assistance 6=Modified [place] 3=Moderate Assistance 7=Complete [place] Therapy Quality Codes: 6 Independent with activity with or without an assistive device 5 Patient requires set up or clean up by helper. Patient completes activity by themselves 4 Supervision or touching assist (CGA). [place] provide cues , steadying assist 3 The helper provides less than half the effort to complete the activity 2 The helper provides more than half the effort to complete the activity 1 Dependent. The helper does all the effort to complete an activity 7 Patient refused to complete or attempt activity 9 The patient did not perform the activity before the current illness or injury 88 Not attempted due to Medical conditions or safety concerns Mental Status/Objective Comprehension: 7 Expression: 7 Social Interaction: 7 Problem Solvin Memory: 7 ADL-Treatment Feedin Eating (QC): 6 Groomin Oral Hygiene (QC): 6 Bathin Shower/Bathe Self (QC): 3 Upper Extremity Dressin Upper Body Dressing (QC): 5 Lower Extremity Dressin Lower Body Dressing (QC): 4 On/Off Footwear (QC): 5 Toiletin Toileting Hygiene (QC): 3 Toilet/Commode Transfer: 5 Toilet Transfer (QC): 4 Shower: 4 Assessment/Plan Assessment and Plan Assess & Plan/Chief Complaint (1) Hip fracture, left s/p repair Status: Acute (2) Hypertension Status: Chronic (3) Osteoarthritis Status: Chronic (4) Insomnia Status: Chronic (5) History of humerus fracture Status: Chronic (6) History of bowel resection Status: Chronic (7) Overactive bladder Status: Chronic (8) Acute blood loss anemia Status: Acute Plan: IRF protocol Return to independent activity prior to DC home with his Monitor subtle confusion but it seems to be clearing Pain control with Lortab but uses it minimally Venofer completed for total of 1 gram of iron Kpad for left trapezium muscle spasm prn Baclofen seems to be helping also Monitor subtle confusion (1) Hip fracture, left (2) Insomnia (3) Acute blood loss anemia (4) Humeral fracture (5) Osteoarthritis (6) Hypertension (7) Overactive bladder (8) History of humerus fracture (9) History of bowel resection LUIS FELIPE COREAS DO Oct 16, 2018 08:28
[2018-10-16] MEDS: LIDOCAINE 4% (SALONPAS) PATCH TOP SCH (09:19)
[2018-10-16] MEDS: ENOXAPARIN 40 MG/0.4 ML (LOVENOX) SYR SC SCH (09:19)
[2018-10-16] MEDS: TOLTERODINE LA 4 MG (DETROL) CAP PO SCH (09:20)
[2018-10-16] MEDS: ATENOLOL 50 MG (TENORMIN) TAB PO SCH (09:20)
[2018-10-16] MEDS: LORATADINE (CLARITIN) 10 MG TAB PO SCH (09:20)
[2018-10-16] MEDS: HYDROcodone/APAP 5 MG/325 MG (LORTAB) TAB PO PRN (09:20)
--- NOTE | 2018-10-16 11:06 | Physical Therapy Daily Note ---
PT Daily Note-Current Subjective Patient in recliner pre tx, agrees to PT, has 6/10 pain in both hips. She says nurse is aware of pain and is getting her pain meds. Appearance Patient in bed post tx with nurse call, phone, tray, all needs met. Mental Status Patient Orientation: Person, Place, Situation Transfers Therapy Code Descriptions/Definitions Functional [place] Measure: 0=Not Assessed/NA 4=Minimal Assistance 1=Total Assistance 5=Supervision or Setup 2=Maximal Assistance 6=Modified [place] 3=Moderate Assistance 7=Complete [place] Therapy Quality Codes: 6 Independent with activity with or without an assistive device 5 Patient requires set up or clean up by helper. Patient completes activity by themselves 4 Supervision or touching assist (CGA). [place] provide cues , steadying assist 3 The helper provides less than half the effort to complete the activity 2 The helper provides more than half the effort to complete the activity 1 Dependent. The helper does all the effort to complete an activity 7 Patient refused to complete or attempt activity 9 The patient did not perform the activity before the current illness or injury 88 Not attempted due to Medical conditions or safety concerns Transfers (B, C, W/C) (FIM): 4 Scootin Rollin Supine to/from Sit: 4 Sit to/from Stand: 6 Bed to/from Chair: 6 Patient occasionally needs min assist getting left leg into bed. Weight Bearing Right Lower Extremity: Right Full Weight Bearing Left Lower Extremity: Left Weight Bearing/Tolerated total hip precautions Gait Training Gait (FIM): 6 Distance: 200'x2 Gait Level of Assist: 6 Gait Assistive Device: FWW Patient ambulates slowly, antalgic, good step through. Stair Training Stair Training: Handrails/: 2 handrails Stairs (FIM): 2 #of Steps: 8 Stairs: Pattern: Step to Level of Assist: 4 CGA, cues for foot placement Exercises Supine Ex: Ankle pumps, Quad Set, Glut sets, Heel Slides, Short Arc Quads, Straight leg raise, Hip abd/add Supine Reps: 20 Standing: Hip Abduction, Hamstring curls, Heel/toe raises, Marching, Mini squats Standing Reps: 15 LAQ left side with 2# ankle weight for 5 min Treatments bed mobility and transfers, ambulation, LE exercise, stair training Assessment Current Status: Fair Progress improving endurance and strength PT Short Term Goals Short Term Goals Time Frame: Oct 12, 2018 Transfers (B,C,W/C) (FIM): 4 Gait (FIM): 1 Gait Distance Comment: 20' Gait Level of Assist: 4 Gait Assistive Device: FWW Wheelchair Distance: 20' PT Jail Goals Teaching Dietitian Goals PT Jail Goals Time Frame: October 26, 2018 Transfers (B,C,W/C) (FIM): 5 Sit to Lying (QC): 4 Lying-Sitting on Side/Bed(QC): 4 Sit to Stand (QC): 4 Rollin Roll Left to Right (QC): 4 Chair/Hgl-sz-Ehfge Xfer(QC): 4 Car Transfer (QC): 4 Gait (FIM): 2 Distance: 50' Walk 10 feet (QC): 4 Walk 10ft-Uneven Surface(QC): 4 Walk 50ft with 2 Turns (QC): 4 Gait Level of Assist: 5 Gait Assistive Device: FWW Stairs (FIM): 1 # of Steps: 1 1 Step (curb) (QC): 4 Stairs Level Of Assist: 4 PT Plan Problem List Problem List: Activity Tolerance, Functional Strength, Safety, Balance, Gait, Transfer, Bed Mobility, ROM Treatment/Plan Treatment Plan: Continue Plan of Care Treatment Plan: Bed Mobility, Education, Functional Activity Anitra, Functional Strength, Group Therapy, Gait, Safety, Therapeutic Exercise, Transfers Treatment Duration: October 26, 2018 Frequency: At least 5 of 7 days/Wk (IRF) Estimated Hrs Per Day: 1.5 hours per day Patient and/or Family Agrees t: Yes Safety Risks/Education Patient Education: Gait Training, Transfer Techniques, Steps, Correct Positioning, Safety Issues Teaching Recipient: Patient Teaching Methods: Demonstration, Discussion Response to Teaching: Reinforcement Needed Time/GCodes Time In: 1000 Time Out: 1100 Total Billed Treatment Time: 60 Total Billed Treatment 1 visit GT 25' EX 35' EDDIE MOSS PT Oct 16, 2018 11:06
--- NOTE | 2018-10-16 11:10 | Occupational Ther Daily Note ---
OT Current Status-Daily Note Subjective Pt. reports pain in bilateral hips. Does not give a pain level but does request pain meds. Nursing notified and gives pt. pain meds. Appearance Pt. up in chair. Agrees to work with OT. Mental Status/Objective Patient Orientation: Person, Place Therapy Code Descriptions/Definitions Functional [place] Measure: 0=Not Assessed/NA 4=Minimal Assistance 1=Total Assistance 5=Supervision or Setup 2=Maximal Assistance 6=Modified [place] 3=Moderate Assistance 7=Complete [place] ADL-Treatment Therapy Code Descriptions/Definitions Functional [place] Measure: 0=Not Assessed/NA 4=Minimal Assistance 1=Total Assistance 5=Supervision or Setup 2=Maximal Assistance 6=Modified [place] 3=Moderate Assistance 7=Complete [place] Therapy Quality Codes: 6 Independent with activity with or without an assistive device 5 Patient requires set up or clean up by helper. Patient completes activity by themselves 4 Supervision or touching assist (CGA). [place] provide cues , steadying assist 3 The helper provides less than half the effort to complete the activity 2 The helper provides more than half the effort to complete the activity 1 Dependent. The helper does all the effort to complete an activity 7 Patient refused to complete or attempt activity 9 The patient did not perform the activity before the current illness or injury 88 Not attempted due to Medical conditions or safety concerns Grooming (FIM): 5 Oral Hygiene (QC): 4 Bathing (FIM): 5 Shower/Bathe Self (QC): 4 Upper Body (FIM): 5 Upper Body Dressing (QC): 4 Lower Body Dressing (FIM): 4 Lower Body Dressing (QC): 4 On/Off Footwear (QC): 4 Toileting (FIM): 4 Toileting Hygiene (QC): 4 Transfers (B, C, W/C) (FIM): 4 Toilet/Commode Transfer (FIM): 4 Toilet Transfer (QC): 4 Shower Transfer(FIM): 4 Other Treatment Pt. requires cues and CGA for most ADLs. Does have difficulty remembering hip precautions. These are written down for her and hung in room. Pt. uses AE for LE dressing and bathing, but requires assist at times to use them correctly. Does not remember how to use them. Cues for sequencing to cleanse self after toileting. After ADls, pt. ambulated with walker and CGA to therapy gym. Tolerated UE strengthening task wearing 1 lb . wrist weights while doing peg tasks. Pt. educated on purpose of this activity. Ambulated back to room with all needs met up in chair. Education OT Patient Education: Correct positioning, Exercise program, Modified ADL techniques, Progress toward Goal/Update tx plan, Purpose of tx/functional activities, Reviewed precautions, Rehab process, Transfer techniques, Use of adapted equipment Teaching Recipient: Patient Teaching Methods: Demonstration, Discussion Response to Teaching: Verbalize Understanding, Return Demonstration OT Short Term Goals Short Term Goals Grooming(FIM): 5 Bathing(FIM): 5 Bathing Location: L Arm, R Arm, L Upper Leg, R Upper Leg, L Lower Leg ( including foot), R Lower Leg (including foot), Chest, Abdomen, Buttocks, Perineal Area Upper Body Dressing(FIM): 5 Lower Body Dressing(FIM): 5 Toileting(FIM): 5 Transfers (B,C,W/C) (FIM): 4 Toilet/Commode Transfer(FIM): 4 Tub Transfer(FIM): 4 1=Demonstrate adherence to instructed precautions during ADL tasks. 2=Patient will verbalize/demonstrate understanding of assistive devices/ modifications for ADL. 3=Patient will improve strength/tolerance for activity to enable patient to perform ADL's. OT Rehab Care Assistant Goals Mcfp Goals Eating (FIM): 7 Eating (QC): 6 Groomin Oral Hygiene (QC): 6 Bathing(FIM): 6 Bathing Location: L Arm, R Arm, L Upper Leg, R Upper Leg, L Lower Leg ( including foot), R Lower Leg (including foot), Chest, Abdomen, Buttocks, Perineal Area Shower/Bathe Self (QC): 6 Upper Body Dressing(FIM): 6 Upper Body Dressing (QC): 6 Lower Body Dressing(FIM): 6 Lower Body Dressing (QC): 6 On/Off Footwear (QC): 6 Toileting(FIM): 6 Toileting Hygiene (QC): 6 Transfers (B,C,W/C) (FIM): 6 Toilet/Commode Transfer(FIM): 6 Toilet/Commode Transfer (QC): 6 Shower Transfer(FIM): 6 Additional Goals: 1-Demonstrate ADL Tasks, 2-Verbalize Understanding, 3- ImproveStrength/Anitra 1=Demonstrate adherence to instructed precautions during ADL tasks. 2=Patient will verbalize/demonstrate understanding of assistive devices/ modifications for ADL. 3=Patient will improve strength/tolerance for activity to enable patient to perform ADL's. OT Education/Plan Problem List/Assessment Assessment: Decreased Activ Tolerance, Decreased UE Strength, Dependent Transfers, Impaired Cognition, Impaired I ADL's, Impaired Self-Care Skills Discharge Recommendations Plan/Recommendations: Continue POC Therapy D/C Recommendations: Home w/ Family Support, Occupational Therapy Home Care Equpiment Recommendations-D/C: Hip Kit Treatment Plan/Plan of Care Treatment,Training & Education: Yes Patient would benefit from OT for education, treatment and training to promote independence in ADL's, mobility, safety and/or upper extremity function for ADL' s. Plan of Care: ADL Retraining, Caregiver Training, Concurrent Therapy, Functional Mobility, Group Exercise/Act as Ind, UE Funct Exercise/Act Treatment Duration: November 02, 2018 Frequency: At least 5 of 7 days/Wk (IRF) Estimated Hrs Per Day: 1.5 hours per day Agreement: Yes Rehab Potential: Good Time/GCodes Start Time: 08:20 Stop Time: 09:50 Total Time Billed (hr/min): 90 Billed Treatment Time 1, ADL x 60minutes, FA x 30minutes ALVERTO LOPEZ OT Oct 16, 2018 11:09
--- NOTE | 2018-10-16 13:31 | Physical Therapy Daily Note ---
PT Daily Note-Current Subjective Patient in bed pre tx, agrees to PT, states she has had pain meds and currently has no pain. Appearance Patient on commode post tx, instructed to use nurse call when done. Mental Status Patient Orientation: Person, Place, Situation Transfers Therapy Code Descriptions/Definitions Functional [place] Measure: 0=Not Assessed/NA 4=Minimal Assistance 1=Total Assistance 5=Supervision or Setup 2=Maximal Assistance 6=Modified [place] 3=Moderate Assistance 7=Complete [place] Therapy Quality Codes: 6 Independent with activity with or without an assistive device 5 Patient requires set up or clean up by helper. Patient completes activity by themselves 4 Supervision or touching assist (CGA). [place] provide cues , steadying assist 3 The helper provides less than half the effort to complete the activity 2 The helper provides more than half the effort to complete the activity 1 Dependent. The helper does all the effort to complete an activity 7 Patient refused to complete or attempt activity 9 The patient did not perform the activity before the current illness or injury 88 Not attempted due to Medical conditions or safety concerns Transfers (B, C, W/C) (FIM): 5 Scootin Rollin Supine to/from Sit: 5 Sit to/from Stand: 6 Bed to/from Chair: 6 Weight Bearing Right Lower Extremity: Right Full Weight Bearing Left Lower Extremity: Left Weight Bearing/Tolerated total hip precautions Gait Training Gait (FIM): 5 Distance: 200'x2 Gait Level of Assist: 5 Gait Persons Needed: 1 Gait Assistive Device: FWW Slow, antalgic, right foot deformity. Exercises NuStep Minutes: 15 NuStep Workload: 4 (Seat setting set so patient does not violate her hip flexion precautions.) Assessment Current Status: Fair Progress improving general mobility PT Short Term Goals Short Term Goals Time Frame: Oct 12, 2018 Transfers (B,C,W/C) (FIM): 4 Gait (FIM): 1 Gait Distance Comment: 20' Gait Level of Assist: 4 Gait Assistive Device: FWW Wheelchair Distance: 20' PT Gis Database Administrator Goals Gis Database Administrator Goals PT [facility] Goals Time Frame: October 26, 2018 Transfers (B,C,W/C) (FIM): 5 Sit to Lying (QC): 4 Lying-Sitting on Side/Bed(QC): 4 Sit to Stand (QC): 4 Rollin Roll Left to Right (QC): 4 Chair/Tou-ad-Kxbqu Xfer(QC): 4 Car Transfer (QC): 4 Gait (FIM): 2 Distance: 50' Walk 10 feet (QC): 4 Walk 10ft-Uneven Surface(QC): 4 Walk 50ft with 2 Turns (QC): 4 Gait Level of Assist: 5 Gait Assistive Device: FWW Stairs (FIM): 1 # of Steps: 1 1 Step (curb) (QC): 4 Stairs Level Of Assist: 4 PT Plan Problem List Problem List: Activity Tolerance, Functional Strength, Safety, Balance, Gait, Transfer, Bed Mobility, ROM Treatment/Plan Treatment Plan: Continue Plan of Care Treatment Plan: Bed Mobility, Education, Functional Activity Anitra, Functional Strength, Group Therapy, Gait, Safety, Therapeutic Exercise, Transfers Treatment Duration: October 26, 2018 Frequency: At least 5 of 7 days/Wk (IRF) Estimated Hrs Per Day: 1.5 hours per day Patient and/or Family Agrees t: Yes Safety Risks/Education Patient Education: Gait Training, Transfer Techniques, Correct Positioning, Safety Issues Teaching Recipient: Patient Teaching Methods: Demonstration, Discussion Response to Teaching: Reinforcement Needed Time/GCodes Time In: 1300 Time Out: 1330 Total Billed Treatment Time: 30 Total Billed Treatment 1 visit EX 15' GT 15' EDDIE MOSS PT Oct 16, 2018 13:31
[2018-10-16 18:53] VITALS: BP 137/71
[2018-10-16] MEDS: MELATONIN 3 MG TABLET PO SCH (21:02)
[2018-10-16] MEDS: TOLTERODINE LA 2 MG (DETROL LA) CAP PO SCH (21:02)
[2018-10-16] MEDS: LIDOCAINE PATCH REMOVAL TP SCH (21:02)
[2018-10-17] MEDS: OMEGA 3 (FISH OIL) 1000 MG CAP PO SCH (06:17)
[2018-10-17] MEDS: MULTIVIT W/MINERALS TAB (THERAGRAN M) PO SCH (06:18)
[2018-10-17 06:24] VITALS: BP 138/55
[2018-10-17] MEDS: LOPERAMIDE 2 MG (IMODIUM) CAP PO PRN (06:33)
[2018-10-17 08:00] VITALS: BP 120/57
--- NOTE | 2018-10-17 08:59 | PM&R Progress Note ---
Subjective HPI/CC On Admission Date Seen by Provider: Oct 17, 2018 Time Seen by Provider: 08:30 CC: Left hip fracture with debility HPI: This is an 78-year-old white female patient of Dr. Bello who presented to inpatient rehab after an uncomplicated left hip fracture repair by Dr Mccord. She will need to work on ambulation with walker and obtain return of independent ADL's in order to return home with her . She did not require a transfusion while on acute floor but does require iron infusion due to low iron level with low hemoglobin. Checked meds and labs and therapy notes. Patient has improved pain on pain meds. No chest pain or dyspnea. Reviewed list of diagnosis. PLOF was independent an currently 1 person assist. Subjective/Events-last exam Pt doing well and participating in therapy at the gym today. Pain is improved. Stools are loose or constipated it really just depends on the day. Minimizing pain medication where she can. Lidocaine patch and topical pain medication added to the regimen. Conferred with RN. Reviewed therapy notes. Review of Systems General: Fatigue Musculoskeletal: leg pain Objective Exam Vital Signs Vital Signs Date Time Temp Pulse Resp B/P (MAP) Pulse Ox O2 Delivery O2 Flow Rate FiO2 10/17/18 17:24 Room Air 10/17/18 16:08 97.9 65 16 119/57 (77) 94 Capillary Refill : Less Than 3 Seconds General Appearance: No Apparent Distress, WD/WN, Chronically ill, Thin HEENT: PERRL/EOMI, Normal ENT Inspection, Pharynx Normal, Moist Mucous Membranes Neck: Full Range of Motion, Normal Inspection, Non Tender, Supple Respiratory: Chest Non Tender, Lungs Clear, Normal Breath Sounds, No Accessory Muscle Use, No Respiratory Distress Cardiovascular: Regular Rate, Rhythm, No Edema, No Gallop, No JVD, No Murmur Gastrointestinal: Normal Bowel Sounds, No Organomegaly, No Pulsatile Mass, Non Tender, Soft Back: Normal Inspection, No CVA Tenderness, No Vertebral Tenderness Extremity: Normal Capillary Refill, Normal Inspection, Normal Range of Motion ( decreased ROM left leg), Non Tender, No Calf Tenderness, No Pedal Edema Neurologic/Psychiatric: Alert, Oriented x3, No Motor/Sensory Deficits, Normal Mood/Affect Skin: Normal Color, Warm/Dry Lymphatic: No Adenopathy Results/Procedures Lab Patient resulted labs reviewed. FIM Transfers Therapy Code Descriptions/Definitions Functional [place] Measure: 0=Not Assessed/NA 4=Minimal Assistance 1=Total Assistance 5=Supervision or Setup 2=Maximal Assistance 6=Modified [place] 3=Moderate Assistance 7=Complete [place] Therapy Quality Codes: 6 Independent with activity with or without an assistive device 5 Patient requires set up or clean up by helper. Patient completes activity by themselves 4 Supervision or touching assist (CGA). [place] provide cues , steadying assist 3 The helper provides less than half the effort to complete the activity 2 The helper provides more than half the effort to complete the activity 1 Dependent. The helper does all the effort to complete an activity 7 Patient refused to complete or attempt activity 9 The patient did not perform the activity before the current illness or injury 88 Not attempted due to Medical conditions or safety concerns Mental Status/Objective Comprehension: 7 Expression: 7 Social Interaction: 7 Problem Solvin Memory: 7 ADL-Treatment Feedin Eating (QC): 6 Groomin Oral Hygiene (QC): 4 Bathin Shower/Bathe Self (QC): 4 Upper Extremity Dressin Upper Body Dressing (QC): 4 Lower Extremity Dressin Lower Body Dressing (QC): 4 On/Off Footwear (QC): 4 Toiletin Toileting Hygiene (QC): 4 Toilet/Commode Transfer: 4 Toilet Transfer (QC): 4 Shower: 4 Assessment/Plan Assessment and Plan Assess & Plan/Chief Complaint (1) Hip fracture, left s/p repair Status: Acute (2) Hypertension Status: Chronic (3) Osteoarthritis Status: Chronic (4) Insomnia Status: Chronic (5) History of humerus fracture Status: Chronic (6) History of bowel resection Status: Chronic (7) Overactive bladder Status: Chronic (8) Acute blood loss anemia Status: Acute Plan: IRF protocol Return to independent activity prior to DC home with his Monitor subtle confusion but it seems to be clearing Pain control with Lortab but uses it minimally Venofer completed for total of 1 gram of iron Kpad for left trapezium muscle spasm prn Baclofen seems to be helping also Monitor subtle confusion (1) Hip fracture, left (2) Insomnia (3) Acute blood loss anemia (4) Humeral fracture (5) Osteoarthritis (6) Hypertension (7) Overactive bladder (8) History of humerus fracture (9) History of bowel resection LUIS FELIPE COREAS DO Oct 17, 2018 08:59
[2018-10-17] MEDS: LORATADINE (CLARITIN) 10 MG TAB PO SCH (09:38)
[2018-10-17] MEDS: HYDROcodone/APAP 5 MG/325 MG (LORTAB) TAB PO PRN ×3 (09:38→21:31)
[2018-10-17] MEDS: TOLTERODINE LA 4 MG (DETROL) CAP PO SCH (09:38)
[2018-10-17] MEDS: LIDOCAINE 4% (SALONPAS) PATCH TOP SCH (09:39)
[2018-10-17] MEDS: ATENOLOL 50 MG (TENORMIN) TAB PO SCH (09:39)
[2018-10-17] MEDS: ENOXAPARIN 40 MG/0.4 ML (LOVENOX) SYR SC SCH (09:41)
--- NOTE | 2018-10-17 10:03 | NUR ---
PREVENTION SPECIALIST met with patient's spouse, while patient was completing therapies. Spouse inquires about walker order and other necessary DME. PREVENTION SPECIALIST has sent walker order to [facility] for delivery to patient's room. PREVENTION SPECIALIST also provided spouse with [facility] provider list, they have selected [place] [facility]. PREVENTION SPECIALIST has notified Latrice, borough coordinator at [facility].
--- NOTE | 2018-10-17 12:17 | Physical Therapy Daily Note ---
PT Daily Note-Current Subjective Pt sitting in recliner upon arrival. Pt agrees to PT. Pain Numeric Pain Scale: 2 Location: Right Location Body Site: Hip Pain Description: Ache Comment: Pt reports R hip is hurting more than affected L side. Mental Status Patient Orientation: Person, Confused, Place Transfers Therapy Code Descriptions/Definitions Functional [place] Measure: 0=Not Assessed/NA 4=Minimal Assistance 1=Total Assistance 5=Supervision or Setup 2=Maximal Assistance 6=Modified [place] 3=Moderate Assistance 7=Complete [place] Therapy Quality Codes: 6 Independent with activity with or without an assistive device 5 Patient requires set up or clean up by helper. Patient completes activity by themselves 4 Supervision or touching assist (CGA). [place] provide cues , steadying assist 3 The helper provides less than half the effort to complete the activity 2 The helper provides more than half the effort to complete the activity 1 Dependent. The helper does all the effort to complete an activity 7 Patient refused to complete or attempt activity 9 The patient did not perform the activity before the current illness or injury 88 Not attempted due to Medical conditions or safety concerns Scootin Sit to/from Stand: 5 Sit to Stand (QC): 5 Weight Bearing Right Lower Extremity: Right Full Weight Bearing Left Lower Extremity: Left Weight Bearing/Tolerated total hip precautions Gait Training Does the Patient Walk?: Yes Distance (FIM): 3=150 ft Distance: 150' Walk 10 feet (QC): 6 Walk 50 ft with 2 Turns(QC): 6 Walk 150 ft (QC): 5 Gait Level of Assist: 5 Gait Persons Needed: 1 Gait Assistive Device: FWW Pt demonstrates occasional confusion. Wheelchair Training Does the Pt Use a Wheelchair?: No Stair Training Stair Training: Handrails/: 2 handrails #of Steps: 4 1 Step (curb) (QC): 5 4 Steps (QC): 5 Stairs: Pattern: Step to Exercises Seated Therapy Exercises: Ankle pumps, Long arc quads, Hip flexion, Kicking activity Seated Reps: 10 Standing: Hip Abduction, Hamstring curls, Heel/toe raises, Marching, Mini squats, Weight shifts Standing Reps: 10 NuStep Minutes: 10 NuStep Workload: 4 Treatments Pt transfers to standing and ambulates in hallway. Pt uses NuStep for 10m at WL 4, followed by Seated & Standing EX at //bars. Pt returns to room to use restroom and rest in recliner at end of tx. Pt has all needs met. Assessment Current Status: Good Progress Pt tolerates tx well, occasional moments of confusion with directions given by staff. PT Short Term Goals Short Term Goals Time Frame: Oct 12, 2018 Transfers (B,C,W/C) (FIM): 4 Gait (FIM): 1 Gait Distance Comment: 20' Gait Level of Assist: 4 Gait Assistive Device: FWW Wheelchair Distance: 20' PT License Issuer Goals Fdc Goals PT Fdc Goals Time Frame: October 26, 2018 Transfers (B,C,W/C) (FIM): 5 Sit to Lying (QC): 4 Lying-Sitting on Side/Bed(QC): 4 Sit to Stand (QC): 4 Rollin Roll Left to Right (QC): 4 Chair/Qbe-et-Lmmlw Xfer(QC): 4 Car Transfer (QC): 4 Gait (FIM): 2 Distance: 50' Walk 10 feet (QC): 4 Walk 10ft-Uneven Surface(QC): 4 Walk 50ft with 2 Turns (QC): 4 Gait Level of Assist: 5 Gait Assistive Device: FWW Stairs (FIM): 1 # of Steps: 1 1 Step (curb) (QC): 4 Stairs Level Of Assist: 4 PT Plan Problem List Problem List: Activity Tolerance, Safety, Gait Treatment/Plan Treatment Plan: Continue Plan of Care Treatment Plan: Bed Mobility, Education, Functional Activity Anitra, Functional Strength, Group Therapy, Gait, Safety, Therapeutic Exercise, Transfers Treatment Duration: October 26, 2018 Frequency: At least 5 of 7 days/Wk (IRF) Estimated Hrs Per Day: 1.5 hours per day Patient and/or Family Agrees t: Yes Safety Risks/Education Patient Education: Gait Training, Transfer Techniques, Correct Positioning, Safety Issues Teaching Recipient: Patient Teaching Methods: Discussion Response to Teaching: Verbalize Understanding, Reinforcement Needed Time/GCodes Time In: 1000 Time Out: 1100 Total Billed Treatment Time: 60 Total Billed Treatment 1, GT (15m), EX x2 (30m) & FA (15m) G Codes Necessary: SIENNA Munguia WAFER SLICER Oct 17, 2018 12:17
--- NOTE | 2018-10-17 13:17 | Occupational Ther Daily Note ---
OT Current Status-Daily Note Subjective Pt sitting in chair, agrees to therapy. Mental Status/Objective Therapy Code Descriptions/Definitions Functional [place] Measure: 0=Not Assessed/NA 4=Minimal Assistance 1=Total Assistance 5=Supervision or Setup 2=Maximal Assistance 6=Modified [place] 3=Moderate Assistance 7=Complete [place] ADL-Treatment Pt declined shower, but agrees to sponge bath. Pt doffed clothing with SBA, uses dressing stick to doff lower body clothing. Upper body bathing completed with SBA. Pt used long handled sponge to wash lower legs and feet. Don pullover shirt with set up. Pt used library services dean to start pants over feet. Cues for hip precautions and AE use for lower body dressing. Stood with supervision for balance during pant hike. Pt donned socks with SBA using sock aid. Pt combed hair with set up. States she has already brushed teeth. Gait to restroom with FWW. Pt transferred to [facility] [place] toilet with SBA. Completed toileting hygiene and clothing management with SBA. Therapy Code Descriptions/Definitions Functional [place] Measure: 0=Not Assessed/NA 4=Minimal Assistance 1=Total Assistance 5=Supervision or Setup 2=Maximal Assistance 6=Modified [place] 3=Moderate Assistance 7=Complete [place] Therapy Quality Codes: 6 Independent with activity with or without an assistive device 5 Patient requires set up or clean up by helper. Patient completes activity by themselves 4 Supervision or touching assist (CGA). [place] provide cues , steadying assist 3 The helper provides less than half the effort to complete the activity 2 The helper provides more than half the effort to complete the activity 1 Dependent. The helper does all the effort to complete an activity 7 Patient refused to complete or attempt activity 9 The patient did not perform the activity before the current illness or injury 88 Not attempted due to Medical conditions or safety concerns Grooming (FIM): 5 Bathing (FIM): 5 Shower/Bathe Self (QC): 4 Upper Body (FIM): 5 Upper Body Dressing (QC): 5 Lower Body Dressing (FIM): 5 Lower Body Dressing (QC): 4 On/Off Footwear (QC): 4 Toileting (FIM): 5 Toileting Hygiene (QC): 4 Toilet/Commode Transfer (FIM): 5 Other Treatment Pt performed gait to therapy gym with FWW. Arm bike x12 minutes to increase overall strength and activity tolerance needed for functional tasks. Pt completed activity with minimal resistance and steady pace. No rest breaks needed. Pt completed peg activity with bilateral UE with 1# weights in place to increase strength for ADLs and transfers. Graded clothespins with bilateral hands to increase software licensing specialist/pinch strength for ADLs. Pt completed fine motor task with nuts and bolts with 1# weights in place to increase strength and coordination/manipulation skills. Pt able to complete task with increased time. Pt returned to room, transferred to bed with SBA. Sit to supine with minimal assistance for left LE. Pt in bed with needs met after session. Education OT Patient Education: Modified ADL techniques Teaching Recipient: Patient Teaching Methods: Demonstration, Discussion Response to Teaching: Reinforcement Needed OT Short Term Goals Short Term Goals Grooming(FIM): 5 Bathing(FIM): 5 Bathing Location: L Arm, R Arm, L Upper Leg, R Upper Leg, L Lower Leg ( including foot), R Lower Leg (including foot), Chest, Abdomen, Buttocks, Perineal Area Upper Body Dressing(FIM): 5 Lower Body Dressing(FIM): 5 Toileting(FIM): 5 Transfers (B,C,W/C) (FIM): 4 Toilet/Commode Transfer(FIM): 4 Tub Transfer(FIM): 4 1=Demonstrate adherence to instructed precautions during ADL tasks. 2=Patient will verbalize/demonstrate understanding of assistive devices/ modifications for ADL. 3=Patient will improve strength/tolerance for activity to enable patient to perform ADL's. OT Manager Pipeline Goals Manager Pipeline Goals Eating (FIM): 7 Eating (QC): 6 Groomin Oral Hygiene (QC): 6 Bathing(FIM): 6 Bathing Location: L Arm, R Arm, L Upper Leg, R Upper Leg, L Lower Leg ( including foot), R Lower Leg (including foot), Chest, Abdomen, Buttocks, Perineal Area Shower/Bathe Self (QC): 6 Upper Body Dressing(FIM): 6 Upper Body Dressing (QC): 6 Lower Body Dressing(FIM): 6 Lower Body Dressing (QC): 6 On/Off Footwear (QC): 6 Toileting(FIM): 6 Toileting Hygiene (QC): 6 Transfers (B,C,W/C) (FIM): 6 Toilet/Commode Transfer(FIM): 6 Toilet/Commode Transfer (QC): 6 Shower Transfer(FIM): 6 Additional Goals: 1-Demonstrate ADL Tasks, 2-Verbalize Understanding, 3- ImproveStrength/Anitra 1=Demonstrate adherence to instructed precautions during ADL tasks. 2=Patient will verbalize/demonstrate understanding of assistive devices/ modifications for ADL. 3=Patient will improve strength/tolerance for activity to enable patient to perform ADL's. OT Education/Plan Discharge Recommendations Plan/Recommendations: Continue POC Treatment Plan/Plan of Care Patient would benefit from OT for education, treatment and training to promote independence in ADL's, mobility, safety and/or upper extremity function for ADL' s. Plan of Care: ADL Retraining, Caregiver Training, Concurrent Therapy, Functional Mobility, Group Exercise/Act as Ind, UE Funct Exercise/Act Treatment Duration: November 02, 2018 Frequency: At least 5 of 7 days/Wk (IRF) Estimated Hrs Per Day: 1.5 hours per day Agreement: Yes Rehab Potential: Good Time/GCodes Start Time: 08:00 Stop Time: 09:30 Total Time Billed (hr/min): 90 Billed Treatment Time 1 visit, ADLx3(40minutes), EXx3(50minutes) ALEX BRUCE OT Oct 17, 2018 13:17
--- NOTE | 2018-10-17 13:33 | Physical Therapy Daily Note ---
PT Daily Note-Current Subjective Pt laying Supine in bed upon arrival. Pt agrees to PT. Pain Numeric Pain Scale: 2 Location: Right Location Body Site: Hip Pain Description: Ache Mental Status Patient Orientation: Person, Confused, Place Transfers Therapy Code Descriptions/Definitions Functional [place] Measure: 0=Not Assessed/NA 4=Minimal Assistance 1=Total Assistance 5=Supervision or Setup 2=Maximal Assistance 6=Modified [place] 3=Moderate Assistance 7=Complete [place] Therapy Quality Codes: 6 Independent with activity with or without an assistive device 5 Patient requires set up or clean up by helper. Patient completes activity by themselves 4 Supervision or touching assist (CGA). [place] provide cues , steadying assist 3 The helper provides less than half the effort to complete the activity 2 The helper provides more than half the effort to complete the activity 1 Dependent. The helper does all the effort to complete an activity 7 Patient refused to complete or attempt activity 9 The patient did not perform the activity before the current illness or injury 88 Not attempted due to Medical conditions or safety concerns Scootin Supine to/from Sit: 6 Sit to/from Stand: 6 Sit to Stand (QC): 6 Weight Bearing Right Lower Extremity: Right Full Weight Bearing Left Lower Extremity: Left Weight Bearing/Tolerated total hip precautions Gait Training Does the Patient Walk?: Yes Distance (FIM): 3=150 ft Distance: 150' Walk 10 feet (QC): 6 Walk 50 ft with 2 Turns(QC): 6 Walk 150 ft (QC): 6 Gait Level of Assist: 6 Gait Persons Needed: 1 Wheelchair Training Does the Pt Use a Wheelchair?: No Exercises NuStep Minutes: 12 NuStep Workload: 4 Treatments Pt transfers to standing and ambulates in hallway. Pt uses NuStep before short RB and returning to room to use restroom. Pt resting at end of tx with all needs met. Assessment Current Status: Good Progress Pt tolerated tx well but is fatigued at end of tx. PT Short Term Goals Short Term Goals Time Frame: Oct 12, 2018 Transfers (B,C,W/C) (FIM): 4 Gait (FIM): 1 Gait Distance Comment: 20' Gait Level of Assist: 4 Gait Assistive Device: FWW Wheelchair Distance: 20' PT Shelter Goals Shelter Goals PT Research Spec Goals Time Frame: October 26, 2018 Transfers (B,C,W/C) (FIM): 5 Sit to Lying (QC): 4 Lying-Sitting on Side/Bed(QC): 4 Sit to Stand (QC): 4 Rollin Roll Left to Right (QC): 4 Chair/Xha-tm-Jvbls Xfer(QC): 4 Car Transfer (QC): 4 Gait (FIM): 2 Distance: 50' Walk 10 feet (QC): 4 Walk 10ft-Uneven Surface(QC): 4 Walk 50ft with 2 Turns (QC): 4 Gait Level of Assist: 5 Gait Assistive Device: FWW Stairs (FIM): 1 # of Steps: 1 1 Step (curb) (QC): 4 Stairs Level Of Assist: 4 PT Plan Problem List Problem List: Activity Tolerance, Functional Strength, Safety Treatment/Plan Treatment Plan: Continue Plan of Care Treatment Plan: Bed Mobility, Education, Functional Activity Anitra, Functional Strength, Group Therapy, Gait, Safety, Therapeutic Exercise, Transfers Treatment Duration: October 26, 2018 Frequency: At least 5 of 7 days/Wk (IRF) Estimated Hrs Per Day: 1.5 hours per day Patient and/or Family Agrees t: Yes Safety Risks/Education Patient Education: Gait Training, Transfer Techniques, Correct Positioning, Safety Issues Teaching Recipient: Patient Teaching Methods: Discussion Response to Teaching: Verbalize Understanding Time/GCodes Time In: 1300 Time Out: 1330 Total Billed Treatment Time: 30 Total Billed Treatment 1, GT (15m) & EX (15m) G Codes Necessary: SIENNA Munguia FLOOR COVERING PRINTER ASSISTANT Oct 17, 2018 13:33
[2018-10-17 16:08] VITALS: BP 119/57
[2018-10-17] MEDS: LACTASE ENZYME PO PRN (17:12)
--- NOTE | 2018-10-17 19:08 | NUR ---
bedside report received from BARBARA HU, assume care of pt
--- NOTE | 2018-10-17 21:00 | NUR ---
assessments & interventions completed, see assessments & interventions, up to bathroom with 1 person assist & walker
[2018-10-17] MEDS: TOLTERODINE LA 2 MG (DETROL LA) CAP PO SCH (21:19)
[2018-10-17] MEDS: LIDOCAINE PATCH REMOVAL TP SCH (21:19)
[2018-10-17] MEDS: MELATONIN 3 MG TABLET PO SCH (21:19)
[2018-10-17] MEDS: ASPERCREME WITH LIDOCAINE TP PRN (21:21)
--- NOTE | 2018-10-17 21:31 | NUR ---
c/o lt hip pain level 6/10 on numeric scale, lortab 5 1 tab
--- NOTE | 2018-10-17 22:10 | NUR ---
resting quietly in bed, pain level 0/10 on flacc scale
[2018-10-18 06:07] VITALS: BP 122/61
[2018-10-18] MEDS: OMEGA 3 (FISH OIL) 1000 MG CAP PO SCH (06:41)
[2018-10-18] MEDS: MULTIVIT W/MINERALS TAB (THERAGRAN M) PO SCH (06:42)
--- NOTE | 2018-10-18 07:14 | NUR ---
bedside report given to MARCO A HU
--- NOTE | 2018-10-18 08:47 | PM&R Progress Note ---
Subjective HPI/CC On Admission Date Seen by Provider: October 18, 2018 Time Seen by Provider: 08:45 CC: Left hip fracture with debility HPI: This is an 78-year-old white female patient of Dr. Bello who presented to inpatient rehab after an uncomplicated left hip fracture repair by Dr Mccord. She will need to work on ambulation with walker and obtain return of independent ADL's in order to return home with her . She did not require a transfusion while on acute floor but does require iron infusion due to low iron level with low hemoglobin. Checked meds and labs and therapy notes. Patient has improved pain on pain meds. No chest pain or dyspnea. Reviewed list of diagnosis. PLOF was independent an currently 1 person assist. Subjective/Events-last exam Patient doing well Conferred with orthopedics and pal will be removed Every since the endometriosis caused a small bowel resection partial she has had altered bowel habits so she has diarrhea and constipation alternating Needs a lot of cues to remember how to manage the hip fracture post-care We'll discharge tomorrow Home health via [facility] will be set up Note from 10/17/18: Pt doing well and participating in therapy at the gym today. Pain is improved. Stools are loose or constipated it really just depends on the day. Minimizing pain medication where she can. Lidocaine patch and topical pain medication added to the regimen. Conferred with RN. Reviewed therapy notes. Review of Systems Musculoskeletal: leg pain Neurological: Weakness Objective Exam Vital Signs Vital Signs Date Time Temp Pulse Resp B/P (MAP) Pulse Ox O2 Delivery O2 Flow Rate FiO2 10/18/18 09:00 Room Air 10/18/18 06:07 97.5 61 18 122/61 (81) 97 Capillary Refill : Less Than 3 Seconds General Appearance: No Apparent Distress, WD/WN, Chronically ill, Thin HEENT: PERRL/EOMI, Normal ENT Inspection, Pharynx Normal, Moist Mucous Membranes Neck: Full Range of Motion, Normal Inspection, Non Tender, Supple Respiratory: Chest Non Tender, Lungs Clear, Normal Breath Sounds, No Accessory Muscle Use, No Respiratory Distress Cardiovascular: Regular Rate, Rhythm, No Edema, No Gallop, No JVD, No Murmur Gastrointestinal: Normal Bowel Sounds, No Organomegaly, No Pulsatile Mass, Non Tender, Soft Back: Normal Inspection, No CVA Tenderness, No Vertebral Tenderness Extremity: Normal Capillary Refill, Normal Inspection, Normal Range of Motion ( decreased ROM left leg), Non Tender, No Calf Tenderness, No Pedal Edema Neurologic/Psychiatric: Alert, Oriented x3, No Motor/Sensory Deficits, Normal Mood/Affect Skin: Normal Color, Warm/Dry Lymphatic: No Adenopathy Results/Procedures Lab Patient resulted labs reviewed. FIM Transfers Therapy Code Descriptions/Definitions Functional [place] Measure: 0=Not Assessed/NA 4=Minimal Assistance 1=Total Assistance 5=Supervision or Setup 2=Maximal Assistance 6=Modified [place] 3=Moderate Assistance 7=Complete [place] Therapy Quality Codes: 6 Independent with activity with or without an assistive device 5 Patient requires set up or clean up by helper. Patient completes activity by themselves 4 Supervision or touching assist (CGA). [place] provide cues , steadying assist 3 The helper provides less than half the effort to complete the activity 2 The helper provides more than half the effort to complete the activity 1 Dependent. The helper does all the effort to complete an activity 7 Patient refused to complete or attempt activity 9 The patient did not perform the activity before the current illness or injury 88 Not attempted due to Medical conditions or safety concerns Mental Status/Objective Comprehension: 7 Expression: 7 Social Interaction: 7 Problem Solvin Memory: 7 ADL-Treatment Feedin Eating (QC): 6 Groomin Oral Hygiene (QC): 4 Bathin Shower/Bathe Self (QC): 4 Upper Extremity Dressin Upper Body Dressing (QC): 5 Lower Extremity Dressin Lower Body Dressing (QC): 4 On/Off Footwear (QC): 4 Toiletin Toileting Hygiene (QC): 4 Toilet/Commode Transfer: 5 Toilet Transfer (QC): 4 Shower: 4 Assessment/Plan Assessment and Plan Assess & Plan/Chief Complaint (1) Hip fracture, left s/p repair Status: Acute (2) Hypertension Status: Chronic (3) Osteoarthritis Status: Chronic (4) Insomnia Status: Chronic (5) History of humerus fracture Status: Chronic (6) History of bowel resection Status: Chronic (7) Overactive bladder Status: Chronic (8) Acute blood loss anemia Status: Acute Plan: IRF protocol Return to independent activity prior to DC home with his Monitor subtle confusion but it seems to be clearing Pain control with Lortab but uses it minimally Venofer completed for total of 1 gram of iron Kpad for left trapezium muscle spasm prn Baclofen seems to be helping also Monitor subtle confusion DC home tomorrow (1) Hip fracture, left (2) Insomnia (3) Acute blood loss anemia (4) Humeral fracture (5) Osteoarthritis (6) Hypertension (7) Overactive bladder (8) History of humerus fracture (9) History of bowel resection LUIS FELIPE COREAS DO October 18, 2018 08:47
[2018-10-18] MEDS: LORATADINE (CLARITIN) 10 MG TAB PO SCH (09:37)
[2018-10-18] MEDS: BACLOFEN 10 MG (LIORESAL) TAB PO PRN (09:37)
[2018-10-18] MEDS: ENOXAPARIN 40 MG/0.4 ML (LOVENOX) SYR SC SCH (09:37)
[2018-10-18] MEDS: ATENOLOL 50 MG (TENORMIN) TAB PO SCH (09:37)
[2018-10-18] MEDS: TOLTERODINE LA 4 MG (DETROL) CAP PO SCH (09:37)
[2018-10-18] MEDS: LIDOCAINE 4% (SALONPAS) PATCH TOP SCH (09:37)
[2018-10-18] MEDS: HYDROcodone/APAP 5 MG/325 MG (LORTAB) TAB PO PRN ×3 (09:38→20:58)
--- NOTE | 2018-10-18 09:56 | Physical Therapy Daily Note ---
PT Daily Note-Current Subjective Pt sitting in recliner upon arrival. Pt agrees to PT. Pain Numeric Pain Scale: 3 Location: Left Location Body Site: Hip Pain Description: Ache Mental Status Patient Orientation: Person, Confused, Place Transfers Therapy Code Descriptions/Definitions Functional [place] Measure: 0=Not Assessed/NA 4=Minimal Assistance 1=Total Assistance 5=Supervision or Setup 2=Maximal Assistance 6=Modified [place] 3=Moderate Assistance 7=Complete [place] Therapy Quality Codes: 6 Independent with activity with or without an assistive device 5 Patient requires set up or clean up by helper. Patient completes activity by themselves 4 Supervision or touching assist (CGA). [place] provide cues , steadying assist 3 The helper provides less than half the effort to complete the activity 2 The helper provides more than half the effort to complete the activity 1 Dependent. The helper does all the effort to complete an activity 7 Patient refused to complete or attempt activity 9 The patient did not perform the activity before the current illness or injury 88 Not attempted due to Medical conditions or safety concerns Transfers (B, C, W/C) (FIM): 6 Scootin Rollin Roll Left to Right (QC): 6 Supine to/from Sit: 6 Sit to/from Stand: 6 Sit to Lying (QC): 6 Sit to Stand (QC): 6 Chair/Hgr-na-Bbrdx Xfer(QC): 6 Bed to/from Chair: 6 Car Transfer (QC): 6 Weight Bearing Right Lower Extremity: Right Full Weight Bearing Left Lower Extremity: Left Weight Bearing/Tolerated total hip precautions Gait Training Does the Patient Walk?: Yes Gait (FIM): 6 Distance (FIM): 3=150 ft Distance: 150' Walk 10 feet (QC): 6 Walk 50 ft with 2 Turns(QC): 6 Walk 150 ft (QC): 6 Walking 10ft/uneven surface-QC: 6 Gait Level of Assist: 6 Gait Persons Needed: 1 Gait Assistive Device: FWW Wheelchair Training Does the Pt Use a Wheelchair?: No Stair Training Stair Training: Handrails/: 2 handrails Stairs (FIM): 3 #of Steps: 4 1 Step (curb) (QC): 6 4 Steps (QC): 6 12 Steps (QC): 88 Stairs: Pattern: Step to Level of Assist: 6 Pt is not able to complete more than 4 steps due to fatigue. Pt will only have 3 steps to enter house. Balance Picking up an Object (QC): 88 Special Test Comments Pt is not able to complete this task due to Hip precautions. Exercises Seated Therapy Exercises: Ankle pumps, Long arc quads, Hip flexion, Kicking activity Seated Reps: 10 (W/in Hip precaution protocal) NuStep Minutes: 12 NuStep Workload: 5 Treatments Pt completes transfers including car transfer, bed mobility, ambulation including across varying surface. Pt completes Seated Ex & uses NuStep for 12m at WL 4. Pt returns to room at end of tx with all needs met and resting Supine in bed. Assessment Current Status: Good Progress Pt has occasional moments of confusion and needs VC for safety. PT Short Term Goals Short Term Goals Time Frame: Oct 12, 2018 Transfers (B,C,W/C) (FIM): 4 Gait (FIM): 1 Gait Distance Comment: 20' Gait Level of Assist: 4 Gait Assistive Device: FWW Wheelchair Distance: 20' PT Clinical Laboratory Scientist Goals Half-Way Goals PT Clinical Laboratory Scientist Goals Time Frame: October 26, 2018 Transfers (B,C,W/C) (FIM): 5 Sit to Lying (QC): 4 Lying-Sitting on Side/Bed(QC): 4 Sit to Stand (QC): 4 Rollin Roll Left to Right (QC): 4 Chair/Dgm-bk-Ogulr Xfer(QC): 4 Car Transfer (QC): 4 Gait (FIM): 2 Distance: 50' Walk 10 feet (QC): 4 Walk 10ft-Uneven Surface(QC): 4 Walk 50ft with 2 Turns (QC): 4 Gait Level of Assist: 5 Gait Assistive Device: FWW Stairs (FIM): 1 # of Steps: 1 1 Step (curb) (QC): 4 Stairs Level Of Assist: 4 PT Plan Problem List Problem List: Activity Tolerance, Safety Treatment/Plan Treatment Plan: Continue Plan of Care Treatment Plan: Bed Mobility, Education, Functional Activity Anitra, Functional Strength, Group Therapy, Gait, Safety, Therapeutic Exercise, Transfers Treatment Duration: October 26, 2018 Frequency: At least 5 of 7 days/Wk (IRF) Estimated Hrs Per Day: 1.5 hours per day Patient and/or Family Agrees t: Yes Safety Risks/Education Patient Education: Gait Training, Transfer Techniques, Correct Positioning, Safety Issues Teaching Recipient: Patient Teaching Methods: Discussion Response to Teaching: Reinforcement Needed Time/GCodes Time In: 900 Time Out: 1000 Total Billed Treatment Time: 60 Total Billed Treatment 1, GT (15m), EX x2 (25m) & FA (20m) G Codes Necessary: SIENNA Munguia PYROTECHNICIAN October 18, 2018 09:56
--- NOTE | 2018-10-18 11:32 | Occupational Ther Daily Note ---
OT Current Status-Daily Note Subjective Pt agreeable to treatment. Reports 4/10 pain in left hip Mental Status/Objective Therapy Code Descriptions/Definitions Functional [place] Measure: 0=Not Assessed/NA 4=Minimal Assistance 1=Total Assistance 5=Supervision or Setup 2=Maximal Assistance 6=Modified [place] 3=Moderate Assistance 7=Complete [place] ADL-Treatment Pt performed gait to restroom with FWW. Transfer to walk in shower with SBA using grab bars, skilled cues for safety. Pt completed seated bathing using hand held shower and long handled sponge. Pt able to wash/dry all areas with cues for use of AE for lower body bathing. Don pullover shirt with set up. Pt used 4th grade math teacher to start Depends and pants over feet, cues for hip precautions. Stood with good balance during pant hike. Assist to don JOHN hose. Pt donned socks with set up using sock aid. Grooming tasks completed standing at sink to brushed teeth and combed hair with modified independence. Pt demonstrated ability to complete toilet transfer with modified independence using grab bars. Pt did not void at this time, but nurse aide reports this morning pt was able to complete toileting hygiene and clothing management with modified independence. Pt ambulated to therapy kitchen. Was able to remove cup from cabinet and fill with ice and water with SBA, cues for walker use and safety. Education was provided regarding home safety and ADL completion. Pt states understanding of education and has no questions at this time. Plan is for pt to d/c home with spouse tomorrow. Pt sitting in chair with needs met after session. Therapy Code Descriptions/Definitions Functional [place] Measure: 0=Not Assessed/NA 4=Minimal Assistance 1=Total Assistance 5=Supervision or Setup 2=Maximal Assistance 6=Modified [place] 3=Moderate Assistance 7=Complete [place] Therapy Quality Codes: 6 Independent with activity with or without an assistive device 5 Patient requires set up or clean up by helper. Patient completes activity by themselves 4 Supervision or touching assist (CGA). [place] provide cues , steadying assist 3 The helper provides less than half the effort to complete the activity 2 The helper provides more than half the effort to complete the activity 1 Dependent. The helper does all the effort to complete an activity 7 Patient refused to complete or attempt activity 9 The patient did not perform the activity before the current illness or injury 88 Not attempted due to Medical conditions or safety concerns Eating (FIM): 7 (by report.) Eating (QC): 6 Grooming (FIM): 6 Oral Hygiene (QC): 6 Bathing (FIM): 5 Shower/Bathe Self (QC): 4 Upper Body (FIM): 5 Upper Body Dressing (QC): 5 Lower Body Dressing (FIM): 5 Lower Body Dressing (QC): 4 On/Off Footwear (QC): 5 Toileting (FIM): 6 (per nursing report) Toileting Hygiene (QC): 6 Toilet/Commode Transfer (FIM): 6 Toilet Transfer (QC): 6 Shower Transfer(FIM): 5 OT Short Term Goals Short Term Goals Grooming(FIM): 5 Bathing(FIM): 5 Bathing Location: L Arm, R Arm, L Upper Leg, R Upper Leg, L Lower Leg ( including foot), R Lower Leg (including foot), Chest, Abdomen, Buttocks, Perineal Area Upper Body Dressing(FIM): 5 Lower Body Dressing(FIM): 5 Toileting(FIM): 5 Transfers (B,C,W/C) (FIM): 4 Toilet/Commode Transfer(FIM): 4 Tub Transfer(FIM): 4 1=Demonstrate adherence to instructed precautions during ADL tasks. 2=Patient will verbalize/demonstrate understanding of assistive devices/ modifications for ADL. 3=Patient will improve strength/tolerance for activity to enable patient to perform ADL's. OT [facility] Goals [facility] Goals Eating (FIM): 7 (met 10/18/18) Eating (QC): 6 (6-MET) Groomin (met 10/18/18) Oral Hygiene (QC): 6 (6-MET) Bathing(FIM): 6 (not met) Bathing Location: L Arm, R Arm, L Upper Leg, R Upper Leg, L Lower Leg ( including foot), R Lower Leg (including foot), Chest, Abdomen, Buttocks, Perineal Area Shower/Bathe Self (QC): 6 (4-not met) Upper Body Dressing(FIM): 6 (not met) Upper Body Dressing (QC): 6 (5-not met) Lower Body Dressing(FIM): 6 (not met) Lower Body Dressing (QC): 6 (4-not met) On/Off Footwear (QC): 6 (5-not met) Toileting(FIM): 6 (met 10/18/18) Toileting Hygiene (QC): 6 (6-MET) Transfers (B,C,W/C) (FIM): 6 Toilet/Commode Transfer(FIM): 6 (met 10/18/18) Toilet/Commode Transfer (QC): 6 (6-MET) Shower Transfer(FIM): 6 (not met) Additional Goals: 1-Demonstrate ADL Tasks, 2-Verbalize Understanding, 3- ImproveStrength/Anitra 1=Demonstrate adherence to instructed precautions during ADL tasks. 2=Patient will verbalize/demonstrate understanding of assistive devices/ modifications for ADL. 3=Patient will improve strength/tolerance for activity to enable patient to perform ADL's. OT Education/Plan Discharge Recommendations Plan/Recommendations: Continue POC Treatment Plan/Plan of Care Patient would benefit from OT for education, treatment and training to promote independence in ADL's, mobility, safety and/or upper extremity function for ADL' s. Plan of Care: ADL Retraining, Caregiver Training, Concurrent Therapy, Functional Mobility, Group Exercise/Act as Ind, UE Funct Exercise/Act Treatment Duration: November 02, 2018 Frequency: At least 5 of 7 days/Wk (IRF) Estimated Hrs Per Day: 1.5 hours per day Agreement: Yes Rehab Potential: Good Time/GCodes Start Time: 08:00 Stop Time: 09:00 Total Time Billed (hr/min): 60 Billed Treatment Time 1 visit, ADLx4(60minutes) ALEX BRUCE OT October 18, 2018 11:32
--- NOTE | 2018-10-18 13:35 | NUR ---
PT REFUSING ENLIVE AND PT EATING FAIRLY WELL, 78% MEALS. WEIGHT HAS INCREASED. INTAKE MEETING NEEDS AT THIS TIME. CONT SAME.
--- NOTE | 2018-10-18 14:11 | NUR ---
26 Nathan removed from Left hip per physician orders. Patient tolerated procedure well. Steri strips applied. Incision is well approximated and shows no signs or symptoms of infection.
--- NOTE | 2018-10-18 14:54 | Therapy Group Daily Note ---
Therapy Daily Group Note Patient Education Topic Fall Prevention, Energy Cons, Exercises Exercises LE Seated Exercise, UE Exercise Session Ratio (pt:therapist): 4:1 Goal of Session: Education on ARU Expectations, Energy Conservation Tech., Home Safety Strategies, UE/LE Strengthing, Safety with Transfers Goal Met for this Session: Yes Pt Benefit of Group: Contributions to Others, F/U Use of Strategies @Home, Increased Functional Safety, Increased Functional Strength, Improved Cognition, Recognition of Peers, Socialization Other/Notes Pt perform functional mobility to OT/PT group in ARU [facility] area. Group consisted of introductions (name, place living, favorite hobby), socialization, ARU expectations/description, and UE/LE seated exercises. Pt able to introduce self then actively listened to peers. Pt acknowledged understanding of ARU by verbalizing in affirmative. Pt demo ability to complete UE/LE seated exercises without difficulty. Using light weight dice pt demo ability to throw dice and which number it lands on was the reps the patient completed as a group. patient has to instruct the other group member of the exercise. After therapy, pt lying in bed with call light/phone in reach. All needs met in room. Start Time: 13:00 Stop Time: 14:00 Total Billed Treatment Time: 60 Total Billed Treatment 1, GRP SIENNA FERNANDEZ PTA October 18, 2018 14:54
--- NOTE | 2018-10-18 16:07 | D/C HH Face to Face Order ---
D/C Face to Face Orders Instructions for Patient Via [facility], Patient Instructions/FollowUp: Dr. Bello in one week Physician to follow Patient: Dr. Bello Discharge Diet for Home: No Restrictions Patient Problems: Left hip fracture status post uncomplicated repair Mild memory deficit Altered bowel habits Anemia Patient Data-Allergies,Ht & Wt Patient Allergies: Coded Allergies: No Known Drug Allergies (Unverified , 05/10/14) Height (Feet): 5 Height (Inches): 5.00 Weight (Pounds): 155 Weight (Ounces): 6.0 Home Health Need/Face to Face Date of Face to Face: October 19, 2018 Clinical Findings: Generalized weakness and fatigue, Instability, Muscle weakness, Pain with ambulation, Unsteady gait I have seen Pt [id number]: Yes Discharged To: Home Diagnosis/Conditions: Left hip fracture status post uncomplicated repair Mild memory deficit Altered bowel habits Anemia Patient is Homebound due to: Hal fall risk due to instabilty, Muscle weakness , Pain w/ambulation Homebound Status Due to the above stated illness, injury or surgical procedure (medical condition or diagnosis) and associated clinical findings, the patient is homebound because of his/her inability to leave home except with aid of a supportive device and/or person AND leaving the home requires a considerable and taxing effort or is medically contraindicated. Pt req the following assistanc: Walker Home Health Nursing Orders Home Health Services Order: Nursing Services, [employer] Supervisor-Evaluate & Treat, Physical Therapy-Evaluate & Treat, Other (Bath aide) Home Health Infusion Therapy Line Start Date: Oct 10, 2018 Certify Stmt I certify that this patient is under my care and that I, a nurse practitioner or a physician; a bookkeeping assistant working with me, had a face to face encounter that - meets the physician face to face encounter requirements with this patient as dated. LUIS FELIPE COREAS DO October 18, 2018 16:07
[2018-10-18 17:49] VITALS: BP 126/61
--- NOTE | 2018-10-18 19:13 | NUR ---
bedside report received from MARCO A HU, assume care of pt
[2018-10-18] MEDS: TOLTERODINE LA 2 MG (DETROL LA) CAP PO SCH (20:57)
[2018-10-18] MEDS: MELATONIN 3 MG TABLET PO SCH (20:58)
--- NOTE | 2018-10-18 20:58 | NUR ---
c/o lt hip pain level 6/10 on numeric scale, Lortab 5 1 tab po given
[2018-10-18] MEDS: LIDOCAINE PATCH REMOVAL TP SCH (21:00)
--- NOTE | 2018-10-18 21:00 | NUR ---
assessments & interventions completed, see assessments & interventions, up to bathroom with 1 person assist & walker
--- NOTE | 2018-10-18 21:40 | NUR ---
pain level 2/10 on numeric scale
[2018-10-19 05:53] VITALS: BP 153/71
[2018-10-19] MEDS: OMEGA 3 (FISH OIL) 1000 MG CAP PO SCH (06:43)
[2018-10-19] MEDS: MULTIVIT W/MINERALS TAB (THERAGRAN M) PO SCH (06:44)
--- NOTE | 2018-10-19 07:20 | NUR ---
bedside report given to JEAN-CLAUDE HU
[2018-10-19] MEDS: LIDOCAINE 4% (SALONPAS) PATCH TOP SCH (07:58)
[2018-10-19] MEDS: ATENOLOL 50 MG (TENORMIN) TAB PO SCH (07:59)
[2018-10-19] MEDS: TOLTERODINE LA 4 MG (DETROL) CAP PO SCH (07:59)
[2018-10-19] MEDS: ENOXAPARIN 40 MG/0.4 ML (LOVENOX) SYR SC SCH (07:59)
[2018-10-19] MEDS: LORATADINE (CLARITIN) 10 MG TAB PO SCH (07:59)
[2018-10-19] MEDS ORDERED: ACHD5005 PO (08:16)
[2018-10-19] MEDS ORDERED: Lidocaine 4% Patch TOP (08:16)
[2018-10-19] MEDS ORDERED: TRAM50TA2 PO (08:16)
[2018-10-19] MEDS ORDERED: BACL10TA PO (08:16)
--- NOTE | 2018-10-19 08:18 | Discharge Summary ---
Diagnosis/Chief Complaint Date of Admission Oct 05, 2018 at 10:35 Date of Discharge Discharge Date: October 19, 2018 Discharge Diagnosis Assess & Plan/Chief Complaint (1) Hip fracture, left s/p repair Status: Acute (2) Hypertension Status: Chronic (3) Osteoarthritis Status: Chronic (4) Insomnia Status: Chronic (5) History of humerus fracture Status: Chronic (6) History of bowel resection Status: Chronic (7) Overactive bladder Status: Chronic (8) Acute blood loss anemia Status: Acute Plan: IRF protocol Return to independent activity prior to DC home with his Monitor subtle confusion but it seems to be clearing Pain control with Lortab but uses it minimally Venofer completed for total of 1 gram of iron Kpad for left trapezium muscle spasm prn Baclofen seems to be helping also Monitor subtle confusion DC home tomorrow (1) Hip fracture, left (2) Insomnia (3) Acute blood loss anemia (4) Humeral fracture (5) Osteoarthritis (6) Hypertension (7) Overactive bladder (8) History of humerus fracture (9) History of bowel resection Discharge Summary Discharge Physical Examination Allergies: Coded Allergies: No Known Drug Allergies (Unverified , 05/10/14) Vitals & I&Os Vital Signs Date Time Temp Pulse Resp B/P (MAP) Pulse Ox O2 Delivery O2 Flow Rate FiO2 10/19/18 09:00 Room Air 10/19/18 05:53 97.3 68 18 153/71 (98) 94 General Appearance: Alert, Oriented X3, Cooperative HEENT: Atraumatic, PERRLA Respiratory: Clear to Auscultation, Normal Air Movement Cardiovascular: Regular Rate, Normal S1, Normal S2 Neuro: Normal Gait (With walker), Normal Speech, Strength at 5/5 X4 Ext Psych/Mental Status: Mental Status NL Hospital Course Was the Problem List Reviewed?: Yes Hospital course: Patient lengthy hospital course for 15 days after transferring from [facility] after uncomplicated left hip fracture repair. Patient did complete iron infusions while in inpatient rehabilitation. Bowel function remained labile which was chronic since her pelvic resection for endometriosis from years ago. Mild cognitive deficiency required multiple cues from therapy but she was able to navigate her walker and ambulate and counseled on fall prevention along with training. Labs remained stable and patient was deemed stable for discharge and had regained enough function to return home with help from and uses a walker and supervision with ADLs. Labs (last 24 hrs) Laboratory Tests 10/06/18 05:35: White Blood Count 9.1, Red Blood Count 3.52L, Hemoglobin 9.3L, Hematocrit 30L, Mean Corpuscular Volume 86, Mean Corpuscular Hemoglobin 26, Mean Corpuscular Hemoglobin Concent 31L, Red Cell Distribution Width 15.2H, Platelet Count 180, Mean Platelet Volume 10.5H, Neutrophils (%) (Auto) 67, Lymphocytes (%) (Auto) 14 , Monocytes (%) (Auto) 12, Eosinophils (%) (Auto) 7, Basophils (%) (Auto) 0, Neutrophils # (Auto) 6.1, Lymphocytes # (Auto) 1.3, Monocytes # (Auto) 1.1H, Eosinophils # (Auto) 0.7H, Basophils # (Auto) 0.0, Sodium Level 136, Potassium Level 4.2, Chloride Level 105, Carbon Dioxide Level 23, Anion Gap 8, Blood Urea Nitrogen 19H, Creatinine 0.80, Estimat Glomerular Filtration Rate > 60, BUN/ Creatinine Ratio 24, Glucose Level 102, Calcium Level 9.3, Corrected Calcium 9.9 , Total Bilirubin 0.7, Aspartate Amino Transf (AST/SGOT) 21, Alanine Aminotransferase (ALT/SGPT) 16, Alkaline Phosphatase 75, Total Protein 5.6L, Albumin 3.3 10/16/18 05:20: Sodium Level 138, Potassium Level 3.6, Chloride Level 106, Carbon Dioxide Level 20L, Anion Gap 12, Blood Urea Nitrogen 12, Creatinine 0.80, Estimat Glomerular Filtration Rate > 60, BUN/Creatinine Ratio 15, Glucose Level 122H, Calcium Level 9.7, Corrected Calcium 10.5H, Total Bilirubin 0.4, Aspartate Amino Transf (AST/SGOT) 19, Alanine Aminotransferase (ALT/SGPT) 25, Alkaline Phosphatase 100 , Total Protein 5.4L, Albumin 3.0L 10/16/18 05:25: White Blood Count 5.7, Red Blood Count 3.28L, Hemoglobin 9.1L, Hematocrit 29L, Mean Corpuscular Volume 89, Mean Corpuscular Hemoglobin 28, Mean Corpuscular Hemoglobin Concent 31L, Red Cell Distribution Width 16.5H, Platelet Count 338, Mean Platelet Volume 9.4, Neutrophils (%) (Auto) 68, Lymphocytes (%) (Auto) 19, Monocytes (%) (Auto) 9, Eosinophils (%) (Auto) 4, Basophils (%) (Auto) 0, Neutrophils # (Auto) 3.9, Lymphocytes # (Auto) 1.1, Monocytes # (Auto) 0.5, Eosinophils # (Auto) 0.2, Basophils # (Auto) 0.0 Pending Labs Laboratory Tests 10/06/18 05:35: White Blood Count 9.1, Red Blood Count 3.52, Hemoglobin 9.3, Hematocrit 30, Mean Corpuscular Volume 86, Mean Corpuscular Hemoglobin 26, Mean Corpuscular Hemoglobin Concent 31, Red Cell Distribution Width 15.2, Platelet Count 180, Mean Platelet Volume 10.5, Neutrophils (%) (Auto) 67, Lymphocytes (%) (Auto) 14 , Monocytes (%) (Auto) 12, Eosinophils (%) (Auto) 7, Basophils (%) (Auto) 0, Neutrophils # (Auto) 6.1, Lymphocytes # (Auto) 1.3, Monocytes # (Auto) 1.1, Eosinophils # (Auto) 0.7, Basophils # (Auto) 0.0, Sodium Level 136, Potassium Level 4.2, Chloride Level 105, Carbon Dioxide Level 23, Anion Gap 8, Blood Urea Nitrogen 19, Creatinine 0.80, Estimat Glomerular Filtration Rate > 60, BUN/ Creatinine Ratio 24, Glucose Level 102, Calcium Level 9.3, Corrected Calcium 9.9 , Total Bilirubin 0.7, Aspartate Amino Transf (AST/SGOT) 21, Alanine Aminotransferase (ALT/SGPT) 16, Alkaline Phosphatase 75, Total Protein 5.6, Albumin 3.3 10/16/18 05:20: Sodium Level 138, Potassium Level 3.6, Chloride Level 106, Carbon Dioxide Level 20, Anion Gap 12, Blood Urea Nitrogen 12, Creatinine 0.80, Estimat Glomerular Filtration Rate > 60, BUN/Creatinine Ratio 15, Glucose Level 122, Calcium Level 9.7, Corrected Calcium 10.5, Total Bilirubin 0.4, Aspartate Amino Transf (AST/ SGOT) 19, Alanine Aminotransferase (ALT/SGPT) 25, Alkaline Phosphatase 100, Total Protein 5.4, Albumin 3.0 10/16/18 05:25: White Blood Count 5.7, Red Blood Count 3.28, Hemoglobin 9.1, Hematocrit 29, Mean Corpuscular Volume 89, Mean Corpuscular Hemoglobin 28, Mean Corpuscular Hemoglobin Concent 31, Red Cell Distribution Width 16.5, Platelet Count 338, Mean Platelet Volume 9.4, Neutrophils (%) (Auto) 68, Lymphocytes (%) (Auto) 19, Monocytes (%) (Auto) 9, Eosinophils (%) (Auto) 4, Basophils (%) (Auto) 0, Neutrophils # (Auto) 3.9, Lymphocytes # (Auto) 1.1, Monocytes # (Auto) 0.5, Eosinophils # (Auto) 0.2, Basophils # (Auto) 0.0 Discharge Home Medications: Active Scripts Active [Lidocaine 4% Patch] 1 EA Patch 1 Ea TOP DAILY Hydrocodone/Acetaminophen 5/325mg Tablet (Acetaminophen/Hydrocodone Bitart) 1 Tab Tab 1 Tab PO Q4H PRN Baclofen 10 Mg Tablet 10 Mg PO TID PRN Tramadol HCl 50 Mg Tablet 50 Mg PO Q6H PRN Reported Melatonin 3 Mg Tablet 6 Mg PO HS Claritin (Loratadine) 10 Mg Tablet 10 Mg PO DAILY Aspirin EC (Aspirin) 81 Mg Tablet.dr 81 Mg PO Q48H Detrol LA (Tolterodine Tartrate) 2 Mg Cap 2 Mg PO HS Detrol LA (Tolterodine Tartrate) 4 Mg Cap 4 Mg PO DAILY Atenolol 50 Mg Tablet 50 Mg PO DAILY Daily Value (Multivitamin) 1 Each Tablet 0.5 Tab PO DAILY Fish Oil 1,000 mg Softgel ([place]-3/Dha/Epa/Fish Oil) 1 Each Capsule 1,000 Mg PO DAILY Instructions to patient/family Please see electronic discharge instructions given to patient. Diagnosis/Problems Diagnosis/Problems (1) Hip fracture, left (2) Insomnia Status: Chronic (3) Acute blood loss anemia Status: Acute (4) Humeral fracture Status: Acute (5) Osteoarthritis Status: Chronic (6) Hypertension Status: Chronic (7) Overactive bladder Status: Chronic (8) History of humerus fracture Status: Chronic (9) History of bowel resection Status: Chronic Clinical Quality Measures DVT/VTE Risk/Contraindication: Risk Factor Score Per Nursin RFS Level Per Nursing on Admit: 4+=Very High LUIS FELIPE COREAS DO October 19, 2018 08:18
--- NOTE | 2018-10-19 10:05 | NUR ---
RX AND INSTRUCTIONS AND VERBALIZED UNDERSTANDING. DC'D PER WC WITH .
--- NOTE | 2018-10-19 10:24 | Therapy Team Discharge Summary ---
Therapy Discharge Summary Discharge Recommendations Date of Discharge Therapy D/C Recommendations: Home w/ Family Support, Occupational Therapy Home Care Physical Therapy Patient came to rehab following a left hip fracture. Upon evaluation patient performed bed mobility with min assist, supine <-> sit with mod assist, sit <-> stand with min assist, transfers with min assist, car transfer min assist, ambulated 10' with a rolling walker with min assist, no stairs. Patient has been performing bed mobility and transfer training, balance and endurance training, functional strengthening, stair training, gait training, and education. Patient has made good progress and has met all of her m[facility]p goals. Now, patient performs bed mobility and transfers with mod I, car transfer mod I, ambulates 150' with a rolling walker with mod I (including 50' with at least 2 turns of 90 degrees and 10' over an uneven surface), and can go up and down 4 steps using 2 handrails with mod I. Patient is discharging from this facility today and will be discharged from PT at this time. Occupational Therapy Decreased Activ Tolerance, Decreased UE Strength, Dependent Transfers, Impaired Cognition, Impaired I ADL's, Impaired Self-Care Skills PT Hostage Negotiator Goals Hostage Negotiator Goals PT Hostage Negotiator Goals Time Frame: October 26, 2018 Transfers (B,C,W/C) (FIM): 5 Roll Left to Right (QC): 4 Sit to Lying (QC): 4 Lying-Sitting on Side/Bed(QC): 4 Sit to Stand (QC): 4 Chair/Dzq-rf-Xhltc Xfer(QC): 4 Car Transfer (QC): 4 Gait (FIM): 2 Distance: 50' Walk 10 feet (QC): 4 Walk 10ft-Uneven Surface(QC): 4 Walk 50ft with 2 Turns (QC): 4 Gait Level of Assist: 5 Gait Assistive Device: FWW Stairs (FIM): 1 # of Steps: 1 1 Step (curb) (QC): 4 Stairs Level Of Assist: 4 OT Hostage Negotiator Goals Custodial Goals Eating (FIM): 7 (met 10/18/18) Eating (QC): 6 (6-MET) Oral Hygiene (QC): 6 (6-MET) Grooming(FIM): 6 (met 10/18/18) Bathing(FIM): 6 (not met) Bathing Location: L Arm, R Arm, L Upper Leg, R Upper Leg, L Lower Leg ( including foot), R Lower Leg (including foot), Chest, Abdomen, Buttocks, Perineal Area Shower/Bathe Self (QC): 6 (4-not met) Upper Body Dressing(FIM): 6 (not met) Upper Body Dressing (QC): 6 (5-not met) Lower Body Dressing(FIM): 6 (not met) Lower Body Dressing (QC): 6 (4-not met) On/Off Footwear (QC): 6 (5-not met) Toileting(FIM): 6 (met 10/18/18) Toileting Hygiene (QC): 6 (6-MET) Transfers (B,C,W/C) (FIM): 6 Toilet/Commode Transfer(FIM): 6 (met 10/18/18) Toilet/Commode Transfer (QC): 6 (6-MET) Shower Transfer(FIM): 6 (not met) Additional Goals: 1-Demonstrate ADL Tasks, 2-Verbalize Understanding, 3- ImproveStrength/Anitra 1=Demonstrate adherence to instructed precautions during ADL tasks. 2=Patient will verbalize/demonstrate understanding of assistive devices/ modifications for ADL. 3=Patient will improve strength/tolerance for activity to enable patient to perform ADL's. EDDIE MOSS PT October 19, 2018 10:24
--- NOTE | 2018-10-20 09:05 | Physical Therapy Daily Note ---
PT Daily Note-Current Subjective Pt. agrees to Rx. Pain Numeric Pain Scale: 3 Location Body Site: Hip Pain Description: Ache Mental Status pt. has difficulty with memory and needed repeated instruction Transfers Therapy Code Descriptions/Definitions Functional [place] Measure: 0=Not Assessed/NA 4=Minimal Assistance 1=Total Assistance 5=Supervision or Setup 2=Maximal Assistance 6=Modified [place] 3=Moderate Assistance 7=Complete [place] Therapy Quality Codes: 6 Independent with activity with or without an assistive device 5 Patient requires set up or clean up by helper. Patient completes activity by themselves 4 Supervision or touching assist (CGA). [place] provide cues , steadying assist 3 The helper provides less than half the effort to complete the activity 2 The helper provides more than half the effort to complete the activity 1 Dependent. The helper does all the effort to complete an activity 7 Patient refused to complete or attempt activity 9 The patient did not perform the activity before the current illness or injury 88 Not attempted due to Medical conditions or safety concerns Transfers (B, C, W/C) (FIM): 5 Scootin Rollin Supine to/from Sit: 5 Sit to/from Stand: 5 Weight Bearing Right Lower Extremity: Right Full Weight Bearing Left Lower Extremity: Left Weight Bearing/Tolerated total hip precautions Gait Training Does the Patient Walk?: Yes Gait (FIM): 4 Distance (FIM): 3=150 ft (150,50,100) Gait Level of Assist: 4 Gait Persons Needed: 1 Gait Assistive Device: FWW Exercises Supine Ex: Ankle pumps, Quad Set, Rolling, Glut sets, Heel Slides, Short Arc Quads, Scooting, Straight leg raise, Hip abd/add Supine Reps: 15 NuStep Minutes: 12 NuStep Workload: 2 Treatments car TRF with CGA and instruction Assessment Current Status: Good Progress needs repeated instruction very frequently for all tasks PT Short Term Goals Short Term Goals Time Frame: Oct 12, 2018 Transfers (B,C,W/C) (FIM): 4 Gait (FIM): 1 Gait Distance Comment: 20' Gait Level of Assist: 4 Gait Assistive Device: FWW Wheelchair Distance: 20' PT Lighting Equipment Operator Goals Skilled Nursing Goals PT Lighting Equipment Operator Goals Time Frame: October 26, 2018 Transfers (B,C,W/C) (FIM): 5 Sit to Lying (QC): 4 Lying-Sitting on Side/Bed(QC): 4 Sit to Stand (QC): 4 Rollin Roll Left to Right (QC): 4 Chair/Fqd-iq-Xyonh Xfer(QC): 4 Car Transfer (QC): 4 Gait (FIM): 2 Distance: 50' Walk 10 feet (QC): 4 Walk 10ft-Uneven Surface(QC): 4 Walk 50ft with 2 Turns (QC): 4 Gait Level of Assist: 5 Gait Assistive Device: FWW Stairs (FIM): 1 # of Steps: 1 1 Step (curb) (QC): 4 Stairs Level Of Assist: 4 PT Plan Treatment/Plan Treatment Plan: Continue Plan of Care Treatment Plan: Bed Mobility, Education, Functional Activity Anitra, Functional Strength, Group Therapy, Gait, Safety, Therapeutic Exercise, Transfers Treatment Duration: October 26, 2018 Frequency: At least 5 of 7 days/Wk (IRF) Estimated Hrs Per Day: 1.5 hours per day Patient and/or Family Agrees t: Yes Safety Risks/Education Patient Education: Gait Training, Transfer Techniques, Correct Positioning, Disease Process, Safety Issues Teaching Recipient: Patient Teaching Methods: Demonstration, Discussion Response to Teaching: Verbalize Understanding, Return Demonstration, Reinforcement Needed Time/GCodes Time In: 1000 Time Out: 1100 Total Billed Treatment Time: 60 Total Billed Treatment 1,GT15m,FA15m,EX30m G Codes Necessary: NATALIE Palacios MULTIGRAPHER October 20, 2018 09:05
--- NOTE | 2018-10-20 15:07 | Therapy Team Discharge Summary ---
Therapy Discharge Summary Discharge Recommendations Date of Discharge October 19, 2018 at 10:05 Therapy D/C Recommendations: Home w/ Family Support, Occupational Therapy Home Care Occupational Therapy Pt admitted to ARU following acute hospitalization for left hip fracture. On admission pt required mod assist with toilet transfer, total assist with LE dressing and toileting, and min assist with UE dressing. Skilled OT intervention focused on ADL training, transfers, strengthening, and adaptive equipment use. Pt made good progress with therapy and by discharge is completing toilet transfer, grooming and toileting with modified independence; bathing, dressing, and shower transfer with SBA. Pt required cues for hip precautions during ADL tasks. Pt met goals for eating, grooming, toileting, and toilet transfer, but did not meet other goals. Pt discharged home, D/C ARU OT. Decreased Activ Tolerance, Decreased UE Strength, Dependent Transfers, Impaired Cognition, Impaired I ADL's, Impaired Self-Care Skills PT Residential Goals Residential Goals PT Residential Goals Time Frame: October 26, 2018 Transfers (B,C,W/C) (FIM): 5 Roll Left to Right (QC): 4 Sit to Lying (QC): 4 Lying-Sitting on Side/Bed(QC): 4 Sit to Stand (QC): 4 Chair/Ajv-mr-Dgeem Xfer(QC): 4 Car Transfer (QC): 4 Gait (FIM): 2 Distance: 50' Walk 10 feet (QC): 4 Walk 10ft-Uneven Surface(QC): 4 Walk 50ft with 2 Turns (QC): 4 Gait Level of Assist: 5 Gait Assistive Device: FWW Stairs (FIM): 1 # of Steps: 1 1 Step (curb) (QC): 4 Stairs Level Of Assist: 4 OT Seed Laboratory Assistant Goals Seed Laboratory Assistant Goals Eating (FIM): 7 (met 10/18/18) Eating (QC): 6 (6-MET) Oral Hygiene (QC): 6 (6-MET) Grooming(FIM): 6 (met 10/18/18) Bathing(FIM): 6 (not met) Bathing Location: L Arm, R Arm, L Upper Leg, R Upper Leg, L Lower Leg ( including foot), R Lower Leg (including foot), Chest, Abdomen, Buttocks, Perineal Area Shower/Bathe Self (QC): 6 (4-not met) Upper Body Dressing(FIM): 6 (not met) Upper Body Dressing (QC): 6 (5-not met) Lower Body Dressing(FIM): 6 (not met) Lower Body Dressing (QC): 6 (4-not met) On/Off Footwear (QC): 6 (5-not met) Toileting(FIM): 6 (met 10/18/18) Toileting Hygiene (QC): 6 (6-MET) Transfers (B,C,W/C) (FIM): 6 Toilet/Commode Transfer(FIM): 6 (met 10/18/18) Toilet/Commode Transfer (QC): 6 (6-MET) Shower Transfer(FIM): 6 (not met) Additional Goals: 1-Demonstrate ADL Tasks, 2-Verbalize Understanding, 3- ImproveStrength/Anitra 1=Demonstrate adherence to instructed precautions during ADL tasks. 2=Patient will verbalize/demonstrate understanding of assistive devices/ modifications for ADL. 3=Patient will improve strength/tolerance for activity to enable patient to perform ADL's. ALEX BRUCE OT October 20, 2018 15:07
== END 2018-10-19 10:05 | disposition home health service (06) | DRG 560 ==
PROVIDERS: ADMIT Internal Medicine; ATTEND Internal Medicine
DX: S72.012D Unspecified intracapsular fracture of left femur, subsequent encounter for closed fracture with routine healing (principal); D62 Acute posthemorrhagic anemia; I10 Essential (primary) hypertension; M19.90 Unspecified osteoarthritis, unspecified site; N32.81 Overactive bladder; G47.00 Insomnia, unspecified; R19.7 Diarrhea, unspecified; K59.03 Drug induced constipation; F09 Unspecified mental disorder due to known physiological condition
CPT/HCPCS: 36415; 80053; 85025

== ENCOUNTER → 2019-05-14 | Outpatient (CLI) | payer MEDICARE ==
[~2019-05-14] MED LIST changes: +ACHD5005 PO; +BACL10TA PO; +Lidocaine 4% Patch TOP
--- NOTE | 2019-05-14 10:53 | Diagnostic Imaging Report ---
INDICATION: Chest wall contusion. EXAMINATION: PA and lateral chest. FINDINGS: The heart size and pulmonary vascularity are normal. The lungs are clear. There are no effusions or pneumothoraces. IMPRESSION: Negative chest. Dictated by: Dictated on workstation # [id number]
== END ==
LOC: RAD 09:48
PROVIDERS: ATTEND Nurse Practitioner Family
DX: S20.219A Contusion of unspecified front wall of thorax, initial encounter (principal)
CPT/HCPCS: 71046

== ENCOUNTER 2019-09-06 11:10 | Outpatient (RCR) | payer MEDICARE ==
[~2019-09-06 11:10] MED LIST changes: -ACET-2469 PO; +ACET-2715 PO; +ACHYD1T PO; -HYDR-3820 PO; -MELA3TAB PO; +MELA3TAB39 PO; -TRAM50TA2 PO; +TRM50T PO
== END 2019-09-24 | disposition home or self-care (01) ==
PROVIDERS: ATTEND Family Medicine
DX: M19.90 Unspecified osteoarthritis, unspecified site (principal); M54.5 Low back pain; M25.559 Pain in unspecified hip; M79.604 Pain in right leg; Z87.81 Personal history of (healed) traumatic fracture; Z98.890 Other specified postprocedural states; Z86.12 Personal history of poliomyelitis

== ENCOUNTER 2020-02-14 10:30 | Outpatient (RCR) | payer MEDICARE ==
[~2020-02-14 10:30] MED LIST changes: -ACET-2715 PO; +ACET-3075 PO; +ASPI-1238 PO; -ASPI-983 PO
[2020-03-22] MEDS ORDERED: SULF1TAB35 PO (17:54)
== END 2020-04-09 | disposition home or self-care (01) ==
PROVIDERS: ATTEND Internal Medicine
DX: M62.81 Muscle weakness (generalized) (principal); R26.81 Unsteadiness on feet

== ENCOUNTER 2020-03-22 17:26 | Emergency (ER) | payer MEDICARE ==
[~2020-03-22] VITALS: Ht 175 cm; Wt 59.0 kg
[2020-03-22 17:37] VITALS: BP 182/73
[2020-03-22] MEDS ORDERED: SULF1TAB35 PO (17:54)
--- NOTE | 2020-03-22 17:54 | ED Upper Extremity ---
General Chief Complaint: Upper Extremity Stated Complaint: R RING FINGER SWELLING Nursing Triage Note: PT ARRIVES TO ER WITH C/O RIGHT RING FINGER INJURY OF UNKNOWN ORIGIN. PT THINKS SHE MIGHT HAVE CLIPPED IT WHILE TRIMMING FINGER NAILS 3 DAYS AGO. PT SAID HER NIECE TOLD HER IT NEEDS TREATED RIGHT AWAY. Nursing Sepsis Screen: No Definite Risk Source: patient Exam Limitations: no limitations History of Present Illness Date Seen by Provider: Mar 22, 2020 Time Seen by Provider: 17:38 Initial Comments Here with pain and swelling to the right fourth finger after she injured the lateral aspect during clipping her nail. She has been using antibiotic ointment but it is painful and worse and does have some purulent drainage. No significant abscess otherwise. Denies fever. No red streaks up the finger. Onset: other (3 days ago) Severity: mild Pain/Injury Location: right 4th finger Method of Injury: incised Modifying Factors: Worse With Movement Allergies and Home Medications Allergies Coded Allergies: No Known Drug Allergies (Unverified , 05/10/14) Home Medications Acetaminophen 500 Mg Tablet, 500 MG PO Q6H PRN for PAIN-MILD, (Reported) TAKES ALONG WITH A TRAMADOL TABLET Aspirin 81 Mg Tablet.dr, 81 MG PO Q48H, (Reported) Atenolol 50 Mg Tablet, 50 MG PO DAILY, (Reported) Baclofen 10 Mg Tablet, 10 MG PO TID PRN for MUSCLE SPASMS Prescribed by: LUIS FELIPE COREAS on 10/19/18815 Hydrocodone Bit/Acetaminophen 1 Tab Tab, 1 TAB PO Q4H PRN for PAIN-MODERATE Prescribed by: LUIS FELIPE COREAS on 10/19/18815 Loratadine 10 Mg Tablet, 10 MG PO DAILY, (Reported) Melatonin 3 Mg Tablet, 6 MG PO HS, (Reported) Multivitamin 1 Each Tablet, 0.5 TAB PO DAILY, (Reported) [place]-3/Dha/Epa/Fish Oil 1 Each Capsule, 1,000 MG PO DAILY, (Reported) Tolterodine Tartrate 4 Mg Cap, 4 MG PO DAILY, (Reported) Tolterodine Tartrate 2 Mg Cap, 2 MG PO HS, (Reported) Tramadol HCl 50 Mg Tablet, 50 MG PO Q6H PRN for PAIN-MODERATE Prescribed by: LUIS FELIPE COREAS on 10/19/18815 [Lidocaine 4% Patch] 1 EA PATCH, 1 EA TOP DAILY Prescribed by: LUIS FELIPE COREAS on 10/19/18 0816 Patient Home Medication List Home Medication List Reviewed: Yes Review of Systems Constitutional: No chills, No fever Respiratory: no symptoms reported Cardiovascular: no symptoms reported Skin: see HPI, change in color, lesions Past Orbtupf-Pmxuon-Razmwn Hx Past Med/Social Hx: Reviewed Nursing Past Med/Soc Hx Patient Social History Recent Foreign Travel: No Contact w/Someone Who Travel: No Recent Infectious Disease Expo: No Recent Hopitalizations: Yes Immunizations Up To Date Tetanus Booster (TDap): Less than 5yrs Date of Pneumonia Vaccine: Mar 20, 2015 Date of Influenza Vaccine: Mar 27, 2018 Seasonal Allergies Seasonal Allergies: No Past Medical History Surgeries: Yes Bowel Surgery, Hysterectomy, Orthopedic Respiratory: No Cardiac: Yes Hypertension Neurological: No Reproductive Disorders: No Genitourinary: Yes (BLADDER ISSUES-TAKES DETROL) Gastrointestinal: Yes (1980 APPY AND BOWEL BLOCKAGE REMOVAL) Musculoskeletal: Yes (SPINE ARTHRITIS AND RIGHT HIP, LT HIP FX POST FALL) Arthritis, Fractures Endocrine: No HEENT: Yes Cataract Cancer: No Psychosocial: Yes Sleep Difficulties Integumentary: No Recent Skin Changes Family Medical History Reviewed Nursing Family Hx Cardiovascular disease 19 FATHER 19 MOTHER FH: stroke 19 MOTHER No Pertinent Family Hx Physical Exam Vital Signs Capillary Refill : Less Than 3 Seconds Height, Weight, BMI Height: 5'5.00" Weight: 155lbs. 6.0oz. [id number]; 19.00 BMI Method:Stated General Appearance: WD/WN, no apparent distress Cardiovascular: regular rate, rhythm, no murmur Respiratory: lungs clear, normal breath sounds Hand: Right, soft tissue tenderness, swelling (right fourth finger where draining paronychia to the lateral aspect and tenderness with purulent drainage noted.) Neurologic/Psychiatric: alert, oriented x 3 Skin: other (reddened and inflamed skin around the nail on the fourth right finger lateral aspect) Progress/Results/Core Measures Results/Orders Blood Pressure Mean: 109 Progress Progress Note : Progress Note Seen and evaluated. Discharged home with return precautions. Patient verbalize understanding instructions and agreement with plan. Departure Impression Primary Impression: Paronychia of finger of right hand Disposition: 01 HOME, SELF-CARE Condition: Stable Departure-Patient Inst. Decision time for Depature: 17:53 Referrals: LUIS FELIPE COREAS DO (PCP/Family) Primary Care Physician Patient Instructions: Paronyhenri (DC) Add. Discharge Instructions: All discharge instructions reviewed with patient and/or family. Voiced understanding. Continued to use antibiotic ointment and Band-Aid over wound twice daily. You may wash wound twice daily and you may also soak and salt water twice daily to help draw out infection. Take antibiotics as directed. You may take Tylenol/acetaminophen 650 mg every 6-8 hours as needed for pain. Return for worse pain, swelling, red streaks up the hand or other concerns as needed. Scripts Sulfamethoxazole/Trimethoprim (Bactrim Ds Tablet) 1 Each Tablet 1 EACH PO BID, #14 TAB 0 Refills Prov: FELIPA GUTIERREZ MD 03/22/20 FELIPA GUTIERREZ MD Mar 22, 2020 17:54
== END 2020-03-22 18:05 | disposition home or self-care (01) ==
LOC: EDUNIT# 17:26 → ER 17:27
DX: L03.011 Cellulitis of right finger (principal); I10 Essential (primary) hypertension; Z82.49 Family history of ischemic heart disease and other diseases of the circulatory system; Z79.82 Long term (current) use of aspirin
CPT/HCPCS: 99282

== ENCOUNTER 2021-02-25 14:28 | Emergency (ER) | payer MEDICARE ==
[~2021-02-25] VITALS: Ht 167 cm; Wt 59.0 kg
[~2021-02-25 14:28] MED LIST changes: +SULF1TAB38 PO
[2021-02-25 14:40] VITALS: BP 214/66
[2021-02-25] MEDS ORDERED: TRIAMCINOLONE 0.1% CR (KENALOG) 15 GM TUBE ONE (14:57)
--- NOTE | 2021-02-25 14:59 | ED Integumentary General ---
General Chief Complaint: Skin/Wound Problems Stated Complaint: RASH R LEG Nursing Triage Note: PT AMB TO FT2 W CANE, PT CO OF RASH FROM APPLYING LIDOCAINE GEL TO UPPER BACK ON L SIDE. STATES STARTED ON TUESDAY Source: patient Exam Limitations: no limitations History of Present Illness Date Seen by Provider: Feb 25, 2021 Time Seen by Provider: 14:45 Initial Comments To ER with reports of a rash to the right periscapular region of her back. She has post polio syndrome and has been applying topical Aspercreme with lidocaine to this location. Last application was on Tuesday and Tuesday morning she noticed some redness and itchiness to this location. She has not used a heating pad or any other product to this location. No systemic symptoms. This is not painful, only itchy. Timing/Duration: just prior to arrival Severity: moderate Location: torso Associated Symptoms: denies symptoms Allergies and Home Medications Allergies Coded Allergies: No Known Drug Allergies (Unverified , 05/10/14) Patient Home Medication List Home Medication List Reviewed: Yes Acetaminophen (Tylenol Extra Strength) 500 Mg Tablet, 500 MG PO Q6H PRN for PAIN-MILD, (Reported) Entered as Reported by: MALLORIE VALIENTE on 10/03/18 08 Aspirin (Aspirin EC) 81 Mg Tablet.dr, 81 MG PO Q48H, (Reported) Entered as Reported by: MALLORIE VALIENTE on 10/03/18 08 Atenolol (Atenolol) 50 Mg Tablet, 50 MG PO DAILY, (Reported) Entered as Reported by: MALLORIE VALIENTE on 10/03/18846 Baclofen (Baclofen) 10 Mg Tablet, 10 MG PO TID PRN for MUSCLE SPASMS Prescribed by: LUIS FELIPE COREAS on 10/19/18 08 Hydrocodone Bit/Acetaminophen (Lortab 5 Mg Tablet) 1 Tab Tab, 1 TAB PO Q4H PRN for PAIN-MODERATE Prescribed by: LUIS FELIPE COREAS on 10/19/18815 Loratadine (Claritin) 10 Mg Tablet, 10 MG PO DAILY, (Reported) Entered as Reported by: MALLORIE VALIENTE on 10/03/18 08 Melatonin (Melatonin) 3 Mg Tablet, 6 MG PO HS, (Reported) Entered as Reported by: MALLORIE VALIENTE on 10/03/18 08 Multivitamin (Daily Value) 1 Each Tablet, 0.5 TAB PO DAILY, (Reported) Entered as Reported by: MALLORIE VALIENTE on 10/03/18 0847 [place]-3/Dha/Epa/Fish Oil (Fish Oil 1,000 mg Softgel) 1 Each Capsule, 1,000 MG PO DAILY, (Reported) Entered as Reported by: FADY GERARD on 06/19/15 1240 Sulfamethoxazole/Trimethoprim (Bactrim Ds Tablet) 1 Each Tablet, 1 EACH PO BID Prescribed by: FELIPA GUTIERREZ on 03/22/20 1754 Tolterodine Tartrate (Detrol LA) 4 Mg Cap, 4 MG PO DAILY, (Reported) Entered as Reported by: MALLORIE VALIENTE on 10/03/18 0847 Tolterodine Tartrate (Detrol LA) 2 Mg Cap, 2 MG PO HS, (Reported) Entered as Reported by: MALLORIE VALIENTE on 10/03/18 0847 Tramadol HCl (Tramadol HCl) 50 Mg Tablet, 50 MG PO Q6H PRN for PAIN-MODERATE Prescribed by: LUIS FELIPE COREAS on 10/19/18 0816 [Lidocaine 4% Patch] 1 EA PATCH, 1 EA TOP DAILY Prescribed by: LUIS FELIPE COREAS on 10/19/18 0816 Review of Systems Review of Systems Constitutional: see HPI EENTM: see HPI Respiratory: no symptoms reported Cardiovascular: no symptoms reported Genitourinary: no symptoms reported Musculoskeletal: no symptoms reported Skin: see HPI Psychiatric/Neurological: No Symptoms Reported Endocrine: No Symptoms Reported Hematologic/Lymphatic: No Symptoms Reported Past Afimbez-Tnjvbl-Vniqwt Hx Patient Social History Tobacco Use?: No Substance use?: No Alcohol Use?: No Pt feels they are or have been: No Immunizations Up To Date Tetanus Booster (TDap): Unknown Second COVID19 Vaccination Brian: STATES HAS HAD BOTH MODERNA Seasonal Allergies Seasonal Allergies: No Past Medical History Surgeries: Yes Bowel Surgery, Hysterectomy, Orthopedic Respiratory: No Cardiac: Yes Hypertension Neurological: No Reproductive Disorders: No Genitourinary: Yes (BLADDER ISSUES-TAKES DETROL) Gastrointestinal: Yes (1980 APPY AND BOWEL BLOCKAGE REMOVAL) Musculoskeletal: Yes (SPINE ARTHRITIS AND RIGHT HIP, LT HIP FX POST FALL) Arthritis, Fractures Endocrine: No HEENT: Yes Cataract Cancer: No Psychosocial: Yes Sleep Difficulties Integumentary: No Recent Skin Changes Family Medical History Cardiovascular disease 19 FATHER 19 MOTHER FH: stroke 19 MOTHER No Pertinent Family Hx Physical Exam Vital Signs Vital Signs - First Documented 02/25/21 14:40 Temp 36.1 Pulse 67 Resp 18 B/P (MAP) 214/66 (115) Pulse Ox 97 Capillary Refill : Less Than 3 Seconds General Appearance: WD/WN, no apparent distress Respiratory: no respiratory distress, no accessory muscle use Neurologic/Psychiatric: alert, normal mood/affect, oriented x 3 Skin: normal color, warm/dry Skin Problem Location: other (To the right/midline thoracic area just inferior to the superior border of the scapula is a large area of poorly demarcated erythema that is flat. There are no vesicles. This is pruritic. This does ronni. This does cross midline and does not have the appearance of herpes zoster. ) Skin Problem Character: rash Progress/Results/Core Measures Results/Orders My Orders Orders - CAREY NOEL APRN Triamcinolone 0.1% Cream 80 Gm (Kenalog (02/25/21 21:00) Vital Signs/I&O 02/25/21 14:40 Temp 36.1 Pulse 67 Resp 18 B/P (MAP) 214/66 (115) Pulse Ox 97 Blood Pressure Mean: 115 Departure Impression Primary Impression: Irritant contact dermatitis due to chemical Disposition: 01 HOME, SELF-CARE Condition: Stable Departure-Patient Inst. Decision time for Depature: 14:57 Referrals: LUIS FELIPE COREAS DO (PCP/Family) Primary Care Physician Patient Instructions: Skin Rash (DC) Images Torso/Trunk 1 - Rash Copy Copies To 1: LUIS FELIPE COREAS PETER J APRN Feb 25, 2021 14:59
[2021-02-25] MEDS ORDERED: TR1C15 TP (15:01)
[2021-02-25] MEDS ORDERED: TRIAMCINOLONE 0.1% CR (KENALOG) 80 GM TUBE TP SCH (21:00)
== END 2021-02-25 15:09 | disposition home or self-care (01) ==
LOC: EDUNIT# 14:28 → ER 14:29
DX: L24.5 Irritant contact dermatitis due to other chemical products (principal); I10 Essential (primary) hypertension; G47.9 Sleep disorder, unspecified; A80.9 Acute poliomyelitis, unspecified; H26.9 Unspecified cataract; Z79.899 Other long term (current) drug therapy
CPT/HCPCS: 99283

== ENCOUNTER 2021-11-27 08:18 | Inpatient (IN) | payer MEDICARE ==
[~2021-11-27] VITALS: Ht 167 cm; Wt 54.2 kg
[~2021-11-27 08:18] MED LIST changes: +TR1C15 TP
--- NOTE | 2021-11-27 08:45 | ED Neurological Problem ---
General Chief Complaint: Neuro-Stroke Like Symptoms Stated Complaint: STROKE Nursing Triage Note: ARRIVED VIA EMS FROM HOME. PT STATES SHE FELL SEVERAL TIMES LAST NIGHT STARTING AT 1230 AND THIS AM COULD NOT GET HER OUT OF BED. NOTICABLE LEFT SIDED WEAKNESS IN ARM. Source: EMS Exam Limitations: clinical condition History of Present Illness Date Seen by Provider: Nov 27, 2021 Time Seen by Provider: 08:25 Initial Comments Patient is an 81-year-old female who presents to the emergency department by ambulance chief complaint multiple falls throughout the night. EMS reports that the stated she started having falls sometime around midnight. Apparently this morning he could not get her out of bed and noticed that her left side was weak. Patient arrives little bit confused, she cannot relate the details of the evening. She does not know exactly why she fell. She does not recognize that her left side is weak. She denies any complaints of pain. She states she did not hit her head. She cannot recall her medical history. No other family is immediately available for HPI, review of systems, past medical family and social history. HPI, review of systems, past medical family and social history are limited secondary to the patient's clinical state. Timing/Duration: other (>6h) Severity: severe Associated Symptoms: trouble walking, weakness, other (falls) Allergies and Home Medications Allergies Coded Allergies: No Known Drug Allergies (Unverified , 05/10/14) Patient Home Medication List Home Medication List Reviewed: Yes Acetaminophen (Tylenol Extra Strength) 500 Mg Tablet, 500 MG PO Q6H PRN for PAIN-MILD, (Reported) Entered as Reported by: MALLORIE VALIENTE on 10/03/18 0847 Aspirin (Aspirin EC) 81 Mg Tablet.dr, 81 MG PO Q48H, (Reported) Entered as Reported by: MALLORIE VALIENTE on 10/03/18 0847 Atenolol (Atenolol) 50 Mg Tablet, 50 MG PO DAILY, (Reported) Entered as Reported by: MALLORIE VALIENTE on 10/03/18 0847 Baclofen (Baclofen) 10 Mg Tablet, 10 MG PO TID PRN for MUSCLE SPASMS Prescribed by: LUIS FELIPE COREAS on 10/19/18 0816 Hydrocodone Bit/Acetaminophen (Lortab 5 Mg Tablet) 1 Tab Tab, 1 TAB PO Q4H PRN for PAIN-MODERATE Prescribed by: LUIS FELIPE COREAS on 10/19/18815 Loratadine (Claritin) 10 Mg Tablet, 10 MG PO DAILY, (Reported) Entered as Reported by: MALLORIE VALIENTE on 10/03/18846 Melatonin (Melatonin) 3 Mg Tablet, 6 MG PO HS, (Reported) Entered as Reported by: MALLORIE VALIENTE on 10/03/18846 Multivitamin (Daily Value) 1 Each Tablet, 0.5 TAB PO DAILY, (Reported) Entered as Reported by: MALLORIE VALIENTE on 10/03/18846 Acushnet-3/Dha/Epa/Fish Oil (Fish Oil 1,000 mg Softgel) 1 Each Capsule, 1,000 MG PO DAILY, (Reported) Entered as Reported by: FADY GERARD on 06/19/15 1240 Sulfamethoxazole/Trimethoprim (Bactrim Ds Tablet) 1 Each Tablet, 1 EACH PO BID Prescribed by: FELIPA GUTIERREZ on 03/22/20 1754 Tolterodine Tartrate (Detrol LA) 4 Mg Cap, 4 MG PO DAILY, (Reported) Entered as Reported by: MALLORIE VALIENTE on 10/03/18846 Tolterodine Tartrate (Detrol LA) 2 Mg Cap, 2 MG PO HS, (Reported) Entered as Reported by: MALLORIE VALIENTE on 10/03/18846 Tramadol HCl (Tramadol HCl) 50 Mg Tablet, 50 MG PO Q6H PRN for PAIN-MODERATE Prescribed by: LUIS FELIPE COREAS on 10/19/18815 Triamcinolone Acet (Triamcinolone Acetonide 0.1% Cream) 15 Gm Cr, 15 GM TP BID Prescribed by: CAREY NOEL on 02/25/21 1501 [Lidocaine 4% Patch] 1 EA PATCH, 1 EA TOP DAILY Prescribed by: LUIS FELIPE COREAS on 10/19/18815 Review of Systems Review of Systems Constitutional: see HPI Eyes: No Symptoms Reported Ears, Nose, Mouth, Throat: no symptoms reported Respiratory: no symptoms reported Cardiovascular: no symptoms reported Gastrointestinal: no symptoms reported Genitourinary: no symptoms reported Musculoskeletal: no symptoms reported Skin: no symptoms reported Psychiatric/Neurological: No Symptoms Reported ROS limited secondary to patient's clinical condition Past Vwiwyuf-Ehaovv-Orkjbo Hx Patient Social History Tobacco Use?: No Substance use?: No Alcohol Use?: No Immunizations Up To Date Tetanus Booster (TDap): Unknown Second COVID19 Vaccination Brian: STATES HAS HAD BOTH MODERNA COVID19 Vaccine Ops Manager: UNKNOWN Seasonal Allergies Seasonal Allergies: No Past Medical History Surgeries: Yes Bowel Surgery, Hysterectomy, Orthopedic Respiratory: No Cardiac: Yes Hypertension Neurological: No Reproductive Disorders: No Genitourinary: Yes (BLADDER ISSUES-TAKES DETROL) Gastrointestinal: Yes (1980 APPY AND BOWEL BLOCKAGE REMOVAL) Musculoskeletal: Yes (SPINE ARTHRITIS AND RIGHT HIP, LT HIP FX POST FALL) Arthritis, Fractures Endocrine: No HEENT: Yes Cataract Cancer: No Psychosocial: Yes Sleep Difficulties Integumentary: No Recent Skin Changes Family Medical History Cardiovascular disease 19 FATHER 19 MOTHER FH: stroke 19 MOTHER No Pertinent Family Hx Physical Exam Vital Signs Vital Signs - First Documented 11/27/21 08:18 Temp 36.3 Pulse 83 Resp 16 B/P (MAP) 148/89 (108) Pulse Ox 96 O2 Delivery Room Air Capillary Refill : Less Than 3 Seconds Height, Weight, BMI Height: 5'5.00" Weight: 155lbs. 6.0oz. [id number]; 20.00 BMI Method:Stated General Appearance: WD/WN, no apparent distress HEENT: PERRL/EOMI, pharynx normal Neck: non-tender, full range of motion Respiratory: lungs clear, normal breath sounds, no respiratory distress, no accessory muscle use Cardiovascular: regular rate, rhythm Peripheral Pulses: 2+ Radial Pulses (R), 2+ Radial Pulses (L) Gastrointestinal: normal bowel sounds, non tender, soft Extremities: normal inspection Neurologic/Psychiatric: manager quality systems II-XII nml as tested, alert, oriented x 3 Crainal Nerves: normal hearing, normal speech, PERRL; No facial droop, No facial paresthesias Motor/Sensory: pronator drift (L), weak motor strength LUE, weak motor strength LLE Skin: normal color, warm/dry Stroke Onset of Symptoms Date of Onset of Symptoms: Nov 27, 2021 Time of Symptom Onset: 00:30 Symptoms onset unknown: Yes NIH Stroke Scale Assessment Select: Initial Level of Consciousness: 0=Alert (0), Level of Consciousness- Questions: 0=Answers both month/age (0), LOC Commands: 1=Performs one task (1), Gaze: Normal (0), Facial Movement (Facial Paresis): 0=Normal symmetrical mnt (0), Motor Function-Arms Right: 0=No drift (0), Motor Function-Arms Left: 2=Some effort/gravity (2), Motor Function-Legs Right: 0=No drift (0), Motor Function-Legs Left: 2=Some effort/gravity (2), Limb Ataxia: 1=Present in one limb (1), Sensory: 0=Normal:no loss (0), Best Language: 0=No aphasia (0), Dysarthria: 0=Normal (0), Extinction & Inattention: 1=Visual,tactile,auditory (1), Total: 7 Stroke Thrombolytic Exclusion Age 18 or Over: Yes History of CVA: No Uncontrolled Coagulation Defec: No Intracranial Hemorrhage: No Severe Hypertension: No GI or Bleed: No Oral Anticoagulants: No Surgery or Trauma: No Puncture of Non-Compressible V: No Recent CPR: No Diabetic Hemorrhagic Retinopat: No Organ Biopsy: No Recent Obstetric Delivery: No Glucose: No NIH Stoke Scale >22: No Bacterial Endocarditis: No Pericarditis: No IV - TPa Received IV - TPa Procedure Performed?: No Progress/Results/Core Measures Results/Orders Lab Results Laboratory Tests Test 11/27/21 08:39 11/27/21 08:45 11/27/21 08:50 11/27/21 10:22 Range/Units White Blood Count 7.7 4.3-11.0 10^3/uL Red Blood Count 4.80 3.80-5.11 10^6/uL Hemoglobin 12.9 11.5-16.0 g/dL Hematocrit 41 35-52 % Mean Corpuscular Volume 85 80-99 fL Mean Corpuscular Hemoglobin 27 25-34 pg Mean Corpuscular Hemoglobin Concent 32 32-36 g/dL Red Cell Distribution Width 13.8 10.0-14.5 % Platelet Count 362 130-400 10^3/uL Mean Platelet Volume 10.8 9.0-12.2 fL Immature Granulocyte % (Auto) 1 % Neutrophils (%) (Auto) 74 42-75 % Lymphocytes (%) (Auto) 12 12-44 % Monocytes (%) (Auto) 9 0-12 % Eosinophils (%) (Auto) 4 0-10 % Basophils (%) (Auto) 0 0-10 % Neutrophils # (Auto) 5.7 1.8-7.8 10^3/uL Lymphocytes # (Auto) 0.9 L 1.0-4.0 10^3/uL Monocytes # (Auto) 0.7 0.0-1.0 10^3/uL Eosinophils # (Auto) 0.3 0.0-0.3 10^3/uL Basophils # (Auto) 0.0 0.0-0.1 10^3/uL Immature Granulocyte # (Auto) 0.0 0.0-0.1 10^3/uL Prothrombin Time 14.3 12.2-14.7 SEC INR Comment 1.1 0.8-1.4 Activated Partial Thromboplast Time 31 24-35 SEC D-Dimer 1.29 H 0.00-0.49 UG/ML Urine Color YELLOW Urine Clarity CLEAR Urine pH 6.5 5-9 Urine Specific [place] <=1.005 1.016-1.022 Urine Protein NEGATIVE NEGATIVE Urine Glucose (UA) NEGATIVE NEGATIVE Urine Ketones NEGATIVE NEGATIVE Urine Nitrite NEGATIVE NEGATIVE Urine Bilirubin NEGATIVE NEGATIVE Urine Urobilinogen 0.2 < = 1.0 MG/DL Urine Leukocyte Esterase NEGATIVE NEGATIVE Urine RBC (Auto) NEGATIVE NEGATIVE Urine RBC NONE /HPF Urine WBC RARE /HPF Urine Squamous Epithelial Cells RARE /HPF Urine Crystals NONE /LPF Urine Bacteria NEGATIVE /HPF Urine Casts NONE /LPF Urine Mucus NEGATIVE /LPF Urine Culture Indicated NO Sodium Level 138 135-145 MMOL/L Potassium Level 4.2 3.6-5.0 MMOL/L Chloride Level 104 98-107 MMOL/L Carbon Dioxide Level 25 21-32 MMOL/L Anion Gap 9 5-14 MMOL/L Blood Urea Nitrogen 22 H 7-18 MG/DL Creatinine 1.18 0.60-1.30 MG/DL Estimat Glomerular Filtration Rate 46 BUN/Creatinine Ratio 19 Glucose Level 94 70-105 MG/DL Calcium Level 9.9 8.5-10.1 MG/DL Corrected Calcium 10.1 8.5-10.1 MG/DL Total Bilirubin 0.6 0.1-1.0 MG/DL Aspartate Amino Transf (AST/SGOT) 17 5-34 U/L Alanine Aminotransferase (ALT/SGPT) 21 0-55 U/L Alkaline Phosphatase 106 40-136 U/L Troponin I < 0.028 <0.028 NG/ML Total Protein 6.8 6.4-8.2 GM/DL Albumin 3.8 3.2-4.5 GM/DL SARS-CoV-2 RNA (RT-PCR) Not Detected Not Detecte Glucometer 96 89 70-110 MG/DL My Orders Orders - JUDY ALLEN MD Cbc With Automated Diff (11/27/21 08:37) Protime With Inr (11/27/21 08:37) Partial Thromboplastin Time (11/27/21 08:37) Comprehensive Metabolic Panel (11/27/21 08:37) Fibrin Degradation Products (11/27/21 08:37) Troponin I [place] (11/27/21 08:37) Ua Culture If Indicated (11/27/21 08:37) Chest 1 View, Ap/Pa Only (11/27/21 08:37) Catheter(Urinary) Insert & Ass 03,15 (11/27/21 08:37) Ekg Tracing (11/27/21 08:37) Nothing By Mouth (11/27/21 Breakfast) Accucheck Stat ONCE (11/27/21 08:37) Ed Iv/Invasive Line Start (11/27/21 08:37) Ed Iv/Invasive Line Start (11/27/21 08:37) Vital Signs Stroke Patient Q15M (11/27/21 08:37) Ct Head Wo-R/O Stroke (11/27/21 08:37) O2 (11/27/21 08:37) Intake & Output 06,14,22 (11/27/21 08:37) Monitor-Rhythm Ecg Trace Only (11/27/21 08:37) Dysphagia Screening Tool Q10MX1 (11/27/21 08:37) Post Thrombolytic Adminstratio (11/27/21 08:37) Lipid Panel (11/28/21 06:00) Covid 19 Inhouse Test (11/27/21 08:37) Isolation Central Supply Req (11/27/21 08:37) Ct Angio Head/Neck (11/27/21 10:21) Iohexol Injection (Omnipaque 350 Mg/Ml 1 (11/27/21 10:45) Received Contrast (Hold Metformin- Contr (11/27/21 10:45) Sodium Chloride Flush (Catheter Flush Sy (11/27/21 10:45) Ns (Ivpb) (Sodium Chloride 0.9% Ivpb Bag (11/27/21 10:45) Medications Given in ED Current Medications Medications Dose Ordered Sig/Ariadne Route Start Time Stop Time Status Last Admin Dose Admin Iohexol 75 ml ONCE ONCE IV 11/27/21 10:45 11/27/21 10:46 DC 11/27/21 10:39 75 ML Sodium Chloride 10 ml NEEDED PRN IV 11/27/21 10:45 11/27/21 10:39 10 ML Sodium Chloride 100 ml ONCE ONCE IV 11/27/21 10:45 11/27/21 10:46 DC 11/27/21 10:39 80 ML Vital Signs/I&O 11/27/21 08:18 Temp 36.3 Pulse 83 Resp 16 B/P (MAP) 148/89 (108) Pulse Ox 96 O2 Delivery Room Air Blood Pressure Mean: 108 Progress Progress Note : Time: 11:54 Progress Note Multiple discussions with [facility], initial discussion was at [address] Platt who recommended CT angiography of the brain and cervical vessels. 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 She has no "large vessel occlusion" and t herefore is not a candidate for intervention. Dr. Platt was made aware of these results at 11:15 AM. She recommends permissive hypertension, holding her blood pressure medications. Daily aspirin and a head MRI. She would need to be evaluated for rehab. We will admit her here to the hospital. Initial ECG Impression Date: Nov 27, 2021 Initial ECG Impression Time: 09:03 Initial ECG Rate: 65 Initial ECG Rhythm: A Fib/Flutter Comment Rate controlled A. fib at 65, no ST segment elevation or depression is noted. Diagnostic Imaging Diagonstic Imaging: Xray Comments [facility] [place], [place] NAME: CHAVO LUGO [facility] REC#: [id number] PT STATUS: REG ER : 1940 PHYSICIAN: JUDY ALLEN MD ADMIT DATE: 11/27/21/ER Draft Date of Exam:11/27/21 CHEST 1 VIEW, AP/PA ONLY INDICATION: Neuro deficit COMPARISON: 10/02/2018 FINDINGS: Single view of the chest demonstrates cardiac enlargement with slight central vascular congestion. There is no pneumothorax or effusion. Osseous structures are stable. IMPRESSION: Cardiac enlargement with central vascular congestion. Dictated on workstation # [id number] Dict: 11/27/21905 Trans: 11/27/21908 SOL [id number] Interpreted by: CATALINO HUDDLESTON Electronically signed by: Eric Imaging: CT Comments [facility] [place], [place] NAME: CHAVO LUGO [facility] REC#: [id number] PT STATUS: REG ER : 1940 PHYSICIAN: JUDY ALLEN MD ADMIT DATE: 11/27/21/ER Draft Date of Exam:11/27/21 CT HEAD WO-R/O STROKE PROCEDURE: CT head wo r/o stroke. TECHNIQUE: Multiple contiguous axial images were obtained through the brain without the use of intravenous contrast. Auto Exposure Controls were utilized during the CT exam to meet ALARA standards for radiation dose reduction. INDICATION: Was difficult to arouse this morning has had recent falls and now with left-sided weakness. I have no priors. There is no intracerebral hemorrhage. There is a mild degree of cerebral cortical atrophy unremarkable for age. The ventricular caliber is congruent with the degree of sulcation and there is no manfred hydrocephalus. There is an old appearing lacunar infarct along the left basal ganglia near the posterior limb of the left internal capsule. There is some chronic periventricular white matter changes symmetric and favored to reflect chronic small vessel disease. This is also commonly encountered in patients of this age. There is intracranial atherosclerotic vascular calcifications. There is no sulcal effacement there is no loss of the barnett-white matter differentiations. The basilar cisterns are patent. There is no evidence for an elevation to the intracerebral pressures. There are no abnormal extra-axial fluid collections. Orbits, sinuses and calvarium nonacute. IMPRESSION: Dictated on workstation # [id number] Dict: 11/27/21900 Trans: 11/27/21920 DAREK [id number] Interpreted by: DORIS MOHAMUD Electronically signed by: Departure Communication (Admissions) Time/Spoke to Admitting Phy: 12:[address] Coreas; IP to ICU with consult to brigida Impression Primary Impression: Cerebrovascular accident due to cerebral artery occlusion Additional Impression: Atrial fibrillation Qualified Codes: I48.91 - Unspecified atrial fibrillation Disposition: ADMITTED INPATIENT Condition: Stable Admissions Decision to Admit Reason: Admit from ER (General) Decision to Admit/Date: Nov 27, 2021 Time/Decision to Admit Time: 11:58 Departure-Patient Inst. Referrals: LUIS FELIPE COREAS DO (PCP/Family) Primary Care Physician JUDY ALLEN MD Nov 27, 2021 08:44
[2021-11-27 08:50] LABS: BASOPHILS % (AUTO) 0 % (0-10); BILIRUBIN,URINE NEGATIVE (NEGATIVE); CLARITY,URINE CLEAR; COLOR,URINE YELLOW; EOSINOPHILS # (AUTO) 0.3 10^3/uL (0.0-0.3); EOSINOPHILS % (AUTO) 4 % (0-10); GLUCOSE, URINE (UA) NEGATIVE (NEGATIVE); HEMATOCRIT 41 % (35-52); HEMOGLOBIN 12.9 g/dL (11.5-16.0); KETONES,URINE NEGATIVE (NEGATIVE); LEUKOCYTE ESTERASE ,URINE NEGATIVE (NEGATIVE); LYMPHOCYTES # (AUTO) 0.9 10^3/uL (1.0-4.0); LYMPHOCYTES % (AUTO) 12 % (12-44); MEAN CORPUSCULAR HEMOGLOBIN 27 pg (25-34); MEAN CORPUSCULAR HGB CONC 32 g/dL (32-36); MEAN CORPUSCULAR VOLUME 85 fL (80-99); MEAN PLATELET VOLUME 10.8 fL (9.0-12.2); MONOCYTES # (AUTO) 0.7 10^3/uL (0.0-1.0); MONOCYTES % (AUTO) 9 % (0-12); NEUTROPHILS # (AUTO) 5.7 10^3/uL (1.8-7.8); NEUTROPHILS % (AUTO) 74 % (42-75); NITRITE,URINE NEGATIVE (NEGATIVE); PH,URINE 6.5 (5-9); PLATELET COUNT 362 10^3/uL (130-400); PROTEIN,URINE NEGATIVE (NEGATIVE); WHITE BLOOD COUNT 7.7 10^3/uL (4.3-11.0)
[2021-11-27 08:53] LABS: ALBUMIN 3.8 GM/DL (3.2-4.5)
[2021-11-27 08:54] LABS: CHLORIDE 104 MMOL/L (98-107); POTASSIUM 4.2 MMOL/L (3.6-5.0); SODIUM 138 MMOL/L (135-145)
[2021-11-27 08:55] LABS: CALCIUM 9.9 MG/DL (8.5-10.1)
[2021-11-27 08:56] LABS: GLUCOSE 94 MG/DL (70-105); TOTAL PROTEIN 6.8 GM/DL (6.4-8.2)
[2021-11-27 08:57] LABS: BACTERIA,URINE NEGATIVE /HPF; CARBON DIOXIDE 25 MMOL/L (21-32); SQUAMOUS EPITHELIAL CELL,UR RARE /HPF; WBC,URINE RARE /HPF
[2021-11-27 08:58] LABS: BILIRUBIN,TOTAL 0.6 MG/DL (0.1-1.0)
[2021-11-27 08:59] LABS: ALKALINE PHOSPHATASE 106 U/L (40-136); CREATININE SERUM 1.18 MG/DL (0.60-1.30); GFR ESTIMATED 46
[2021-11-27 09:00] LABS: FIBRIN DEGRADATION PRODUCTS 1.29 UG/ML (0.00-0.49); INR 1.1 (0.8-1.4); PROTHROMBIN TIME PATIENT 14.3 SEC (12.2-14.7)
[2021-11-27 09:01] LABS: BUN/CREATININE RATIO 19
[2021-11-27 09:02] LABS: ALANINE AMINOTRANSFERASE 21 U/L (0-55)
--- NOTE | 2021-11-27 09:09 | Diagnostic Imaging Report ---
INDICATION: Neuro deficit COMPARISON: 10/02/2018 FINDINGS: Single view of the chest demonstrates cardiac enlargement with slight central vascular congestion. There is no pneumothorax or effusion. Osseous structures are stable. IMPRESSION: Cardiac enlargement with central vascular congestion. Dictated by: Dictated on workstation # [id number]
--- NOTE | 2021-11-27 09:22 | Diagnostic Imaging Report ---
PROCEDURE: CT head w/o r/o stroke. TECHNIQUE: Multiple contiguous axial images were obtained through the brain without the use of intravenous contrast. Auto Exposure Controls were utilized during the CT exam to meet ALARA standards for radiation dose reduction. INDICATION: Was difficult to arouse this morning has had recent falls and now with left-sided weakness. I have no priors. There is no intracerebral hemorrhage. There is a mild degree of cerebral cortical atrophy unremarkable for age. The ventricular caliber is congruent with the degree of sulcation and there is no manfred hydrocephalus. There is an old appearing lacunar infarct along the left basal ganglia near the posterior limb of the left internal capsule. There is some chronic periventricular white matter changes symmetric and favored to reflect chronic small vessel disease. This is also commonly encountered in patients of this age. There is intracranial atherosclerotic vascular calcifications. There is no sulcal effacement there is no loss of the barnett-white matter differentiations. The basilar cisterns are patent. There is no evidence for an elevation to the intracerebral pressures. There are no abnormal extra-axial fluid collections. Orbits, sinuses and calvarium nonacute. IMPRESSION: Chronic findings with no hemorrhage or acute appearing abnormality. No evidence for hemorrhage or fracture. Dictated by: Dictated on workstation # [id number]
[2021-11-27] MEDS ORDERED: NS 100 ML (IVPB) BAG IV ONE (10:45)
[2021-11-27] MEDS ORDERED: IOHEXOL 350 MG/ML 100 ML (OMNIPAQUE 350) VIAL IV ONE (10:45)
[2021-11-27] MEDS ORDERED: HOLD METFORMIN - RECEIVED CONTRAST 20 ML VIAL IV SCH (10:45)
[2021-11-27] MEDS ORDERED: CATHETER FLUSH 10 ML SYR IV PRN (10:45)
--- NOTE | 2021-11-27 12:12 | History & Physical ---
History of Present Illness HPI/Chief Complaint CC: CVA with left sided weakness HPI: This is a clinic pt of mine with a past medical history of hypertension. She presented to the ER after altered mental status. She was found at home. EMS brought her in. She was flaccid on the left side. New onset afib rate controlled on telemetry. She was placed on Eliquis 5 mg BID. MRI will be obtained. She will be an ICU admission. Stroke protocol with [facility] was communicated with. All recommendations were initiated per stroke protocol. Source: patient, RN/MD, old records Exam Limitations: clinical condition Date Seen 11/27/21 Time Seen by a Provider: 12:00 Attending Physician Brigette Lopez DO PCP Admitting Physician: Attending Physician: Referring Physician Date of Admission Home Medications & Allergies Home Medications Reviewed patient Home Medication Reconciliation performed by pharmacy medication reconciliations personnel technician and/or nursing. Patients Allergies have been reviewed. Allergies Allergies Coded Allergies No Known Drug Allergies (Mwrcaglpme99/21/14) Past Kbzpalw-Lqzxya-Qbqcsl Hx Past Med/Social Hx: Reviewed Nursing Past Med/Soc Hx, Reviewed and Corrections made Patient Social History Marrital Status: Employed/Student: retired Alcohol Use: Denies Use Smoking Status: Never a Smoker 2nd Hand Smoke Exposure: No Recent Foreign Travel: No Recent Hopitalizations: No Immunizations Up To Date Tetanus Booster (TDap): Unknown Date of Pneumonia Vaccine: Mar 20, 2018 Date of Influenza Vaccine: Mar 20, 2020 Seasonal Allergies Seasonal Allergies: No Past Medical History Surgeries: Bowel Surgery, Hysterectomy, Orthopedic Cardiac: Hypertension Reproductive: No Musculoskeletal: Arthritis, Fractures HEENT: Cataract Psychosocial: Sleep Difficulties Skin/Integumentary: Recent Skin Changes Family History Cardiovascular disease 19 FATHER 19 MOTHER FH: stroke 19 MOTHER No Pertinent Family Hx Review of Systems Constitutional: see HPI, malaise, weakness EENTM: no symptoms reported Respiratory: no symptoms reported Cardiovascular: no symptoms reported Gastrointestinal: no symptoms reported Genitourinary: no symptoms reported Musculoskeletal: no symptoms reported Skin: no symptoms reported Psychiatric/Neurological: Weakness, Other (confusion) All Other Systems Reviewed Negative Unless Noted: Yes Physical Exam Physical Exam Vital Signs Vital Signs - First Documented 11/27/21 08:18 Temp 36.3 Pulse 83 Resp 16 B/P (MAP) 148/89 (108) Pulse Ox 96 O2 Delivery Room Air Capillary Refill : Less Than 3 Seconds Height, Weight, BMI Height: 5'5.00" Weight: 155lbs. 6.0oz. 70.625929bw; 20.00 BMI Method:Stated General Appearance: WD/WN, Anxious, Chronically ill, Mild Distress Eyes: Bilateral Eye Normal Inspection, Bilateral Eye PERRL HEENT: PERRL/EOMI, Normal ENT Inspection, Pharynx Normal Neck: Full Range of Motion, Normal Inspection, Non Tender, Supple, Carotid Bruit Respiratory: Chest Non Tender, Lungs Clear, Normal Breath Sounds, No Accessory Muscle Use, No Respiratory Distress Cardiovascular: No Edema, No Gallop, No JVD, No Murmur, Normal Peripheral Pulses, Irregularly Irregular Gastrointestinal: Normal Bowel Sounds, No Organomegaly, No Pulsatile Mass, Non Tender, Soft Back: Normal Inspection, No CVA Tenderness, No Vertebral Tenderness Extremity: Normal Capillary Refill, Normal Inspection, Normal Range of Motion, Non Tender, No Calf Tenderness, No Pedal Edema Neurologic/Psychiatric: Alert, Normal Mood/Affect, reflesher II-XII Norm as Tested, Depressed Affect, Disoriented, Facial Droop, Motor Weakness (left 1/5 upper and lower) Skin: Normal Color, Warm/Dry Lymphatic: No Adenopathy Results Results/Procedures Labs Laboratory Tests 11/27/21 08:39 Patient resulted labs reviewed. Assessment/Plan Admission Diagnosis Assessment: CVA subacute not a tPa candidate Left sided weakness Confusion Expressive aphasia HTN HLP Chronic pain Plan: Cardiology consult [facility] ICU Lipid panel Carotid MRI Admission Status: Inpatient Order (span 2 midnights) Reason for Inpatient Admission: cva Diagnosis/Problems Diagnosis/Problems (1) Cerebrovascular accident due to cerebral artery occlusion Status: Acute (2) Atrial fibrillation Status: Acute Qualifiers: Atrial fibrillation type: unspecified Qualified Codes: I48.91 - Unspecified atrial fibrillation (3) Hypertension Status: Chronic (4) Osteoarthritis Status: Chronic (5) Insomnia Status: Chronic Clinical Quality Measures Stroke: Date of last known well: Nov 27, 2021 Time of last known well: 00:30 Symptoms onset unknown: Yes BRIGETTE LOPEZ DO Nov 27, 2021 12:12
[2021-11-27] MEDS ORDERED: ASPIRIN 325 MG (5 GR) TABLET PO ONE (12:15)
--- NOTE | 2021-11-27 12:18 | Diagnostic Imaging Report ---
Clinical indication: Patient fell several times last night starting at 12:30 this morning and could not get her out of bed. Noticeable left-sided weakness in arm. Exams: 1: Head CT with and without IV contrast. Auto Exposure Controls were utilized during the CT exam to meet ALARA standards for radiation dose reduction. 2: CT angiogram of the head and neck performed with 100 cc of Omnipaque 350 IV contrast. Sagittal and coronal MIP reformations were created for better visualization of vascular anatomy. CT angiogram was post-processed using RAPID LVO detection to include quantitative measurements of cerebral blood flow and automated results notification to the stroke and/or neurointerventional team. Comparison: Head CT without contrast dated 11/27/2021. Ultrasound of the carotid artery dated 10/06/2011.. Findings: Head CT: There is no interval large vessel territory acute cerebral infarct. There are patchy areas of low-density involving white matter regions of both cerebral hemispheres, likely representing chronic small vessel ischemic disease. There is a subtle area of cortical low density involving the lateral right frontal lobe, likely ribs and a small chronic infarct. There is a 6 mm area of enhancement involving the genu of the right internal capsule region which was not seen on the arterial phase, but seen on the delayed phase. There is no adjacent parenchymal edema. This may represent an area of capillary telangiectasia. There are no other areas of abnormal IV contrast enhancement. Dural venous sinuses are patent. There is no hydrocephalus, brain herniation or midline shift. Basal cisterns are unremarkable. The extracranial soft tissues, skull, and orbits are unremarkable. CT Angiogram: Three-vessel aortic arch is seen. There is mild to moderate narrowing of the origin of the right subclavian artery. Otherwise, the bilateral subclavian arteries are patent. The brachiocephalic artery is patent. The left common carotid artery is patent. There is mild stenosis involving the proximal cervical left ICA. Otherwise, the left ECA and cervical left ICA are patent. Right common carotid artery is patent. There is mild narrowing of the origin of the right ECA. Otherwise, the remainder of the right ECA is patent. 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 There is contrast seen within the right ophthalmiac artery likely from collateral flow. There is an area of severe stenosis involving the paraclinoid left ICA and supraclinoid left ICA. Otherwise, the petrous, cavernous, and left ICA terminus are patent. Azygous A2 KENDLAL noted. The KENDALL and distal branches are patent. The bilateral MCAs and distal branches are patent. There is moderate to severe stenosis involving the distal right P1 RESIDENTIAL PLUMBER. Otherwise, the right RESIDENTIAL PLUMBER and distal branches are patent. left RESIDENTIAL PLUMBER is seen. There is an area of moderate to severe stenosis involving the proximal left P2 RESIDENTIAL PLUMBER region. The remainder of the left RESIDENTIAL PLUMBER and distal branches are patent. The basilar artery, bilateral superior cerebellar arteries, and intradural bilateral vertebral arteries are patent. The bilateral PICAs are patent. The cervical vertebral arteries are patent bilaterally. There is cervical spine degenerative disease with facet arthropathy and vertebral body spurs. Multinodular thyroid lobes are noted. Largest nodule low density in the left thyroid region measuring grossly 3.8 cm in greatest axial dimension. There is atelectasis involving both upper lungs. 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 This area of occlusion is of unknown age. There is contrast within the right ophthalmic artery and patency of the [place] vessels. This occlusion was not noted on the comparison ultrasound of the carotids dated 10/06/2011. 2: There is a 6 mm area of enhancement involving the genu of the right internal capsule region which is not seen on the arterial phase, but seen on the delayed phase. There is no adjacent parenchymal edema. This is nonspecific. MRI of the brain with and without contrast is suggested for further evaluation. 3: There is no CT evidence of acute intracranial infarct. There is no abnormal IV contrast enhancement. 4: There is moderate to severe stenosis involving the distal right P1 RESIDENTIAL PLUMBER and proximal left P2 RESIDENTIAL PLUMBER region. There is severe stenosis involving the paraclinoid and supraclinoid left ICA regions. 5: The remainder of the [place] vascular structures and neck shows no significant stenosis. Results of this report discussed with Dr. Janis Last via the telephone on 11/27/2021 at approximately 1110 hours. Dictated by: Dictated on workstation # [id number]
[2021-11-27] MEDS ORDERED: LACTULOSE SYRUP 10GM/15ML (ENULOSE) 30ML UDC PO PRN (13:00)
[2021-11-27] MEDS ORDERED: polyethylene glycoL POWDER 17 GM (MIRALAX) PACK PO PRN (13:00)
[2021-11-27] MEDS ORDERED: diphenhydrAMINE 25 MG TAB (BENADRYL) PO PRN (13:00)
[2021-11-27] MEDS ORDERED: ONDANSETRON 4 MG (ZOFRAN) ORAL DISSOLVE TAB PO PRN (13:00)
[2021-11-27] MEDS ORDERED: MILK OF MAGNESIA 400 MG/5 ML 30 ML UDC PO PRN (13:00)
[2021-11-27] MEDS ORDERED: ONDANSETRON 4 MG/2 ML (SDV) Z0FRAN IV PRN (13:00)
[2021-11-27] MEDS ORDERED: PATIENT MAY USE OWN MEDS, ALL PO SCH (13:00)
[2021-11-27] MEDS ORDERED: ACETAMINOPHEN 325 MG TABLET PO PRN (13:00)
[2021-11-27] MEDS ORDERED: WATER (STERILE) FOR INJ 10 ML BTL INJ SCH (13:00)
[2021-11-27] MEDS ORDERED: LORazepam INJ 2 MG/ML (ATIVAN) VIAL IVP PRN (13:00)
[2021-11-27] MEDS ORDERED: morphine INJ 4 MG/ML 1 ML (VIAL/SYRINGE) IV PRN (13:00)
[2021-11-27] MEDS ORDERED: diphenhydrAMINE 50 MG/ML INJ (BENADRYL) IVP PRN (13:00)
[2021-11-27] MEDS ORDERED: CALCIUM CARBONATE 500 MG (TUMS) TAB.CHEW PO PRN (13:00)
[2021-11-27] MEDS ORDERED: ANTACID SUSP 30 ML UDC (MYLANTA) PO PRN (13:00)
[2021-11-27] MEDS ORDERED: ZIPRASIDONE 20 MG INJ (GEODON) VIAL IM PRN (13:00)
[2021-11-27] MEDS ORDERED: MELATONIN 3 MG TABLET PO PRN (13:00)
[2021-11-27] MEDS ORDERED: BISACODYL 10 MG SUPP (DULCOLAX) PR PRN (13:00)
--- NOTE | 2021-11-27 13:06 | Consultation-Cardiology ---
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 Jose is an 81 yr old female who has been admitted to ICU 1 from the ED with CVA. She reports she is here because she fell, but is unable to provide any other information. She does not acknowledge any left sided paralysis. Per the ED report her spouse stated she had been falling at home around 1230 yesterday evening. He went to get her out of bed and she was unable to get up therefore EMS was summoned. Review of Systems-Cardiology Review of Systems Other comments ROS to the extent it could be obtained is per HPI DUM-Qwdtmb-Tlswwu Hx Patient Social History 2nd Hand Smoke Exposure: No Have you traveled recently?: No Alcohol Use?: No Immunizations Up To Date Tetanus Booster (TDap): Unknown Date of Pneumonia Vaccine: Mar 20, 2018 Date of Influenza Vaccine: Mar 20, 2020 Past Medical History PMH As described under Assessment. Family Medical History Family Medical History: Unable to obtain from patient Past medical record review in [employer] shows h/o mother having CVA and CV dz; father having CV dz Family History: Cardiovascular disease 19 FATHER 19 MOTHER FH: stroke 19 MOTHER Allergies and Home Medications Allergies Coded Allergies: No Known Drug Allergies (Unverified , 05/10/14) Patient Home Medication List Amlodipine Besylate (Amlodipine Besylate) 2.5 Mg Tablet, 2.5 MG PO DAILY Prescribed by: BRIGETTE LOPEZ on 11/30/21 1028 Apixaban (Eliquis) 2.5 Mg Tablet, 2.5 MG PO BID Prescribed by: BRIGETTE LOPEZ on 11/30/21 1028 Aspirin (Aspirin) 325 Mg Tablet, 325 MG PO DAILY Prescribed by: BRIGETTE LOPEZ on 11/30/21 1028 Atenolol (Atenolol) 50 Mg Tablet, 50 MG PO DAILY, (Reported) Entered as Reported by: MALLORIE VALIENTE on 10/03/18 0810 Last Action: Reviewed Atorvastatin Calcium (Atorvastatin Calcium) 80 Mg Tablet, 80 MG PO DAILY Prescribed by: BRIGETTE LOPEZ on 11/30/21 1028 Baclofen (Baclofen) 10 Mg Tablet, 10 MG PO TID PRN for MUSCLE SPASMS, (Reported) Entered as Reported by: PRINCE SEWELL on 11/27/211608 Last Action: Continued Tramadol HCl (Tramadol HCl) 50 Mg Tablet, 100 MG PO Q6H PRN for PAIN-MODERATE (5-7), (Reported) Entered as Reported by: PRINCE SEWELL on 11/27/211608 Last Action: Continued Zolpidem Tartrate (Ambien) 5 Mg Tablet, 5 MG PO HS, (Reported) Entered as Reported by: PRINCE SEWELL on 11/27/211608 Last Action: Continued Discontinued Medications Acetaminophen (Tylenol Extra Strength) 500 Mg Tablet, 500 MG PO Q6H PRN for PAIN-MILD, (Reported) Discontinued Reason: No Longer Taking Entered as Reported by: MALLORIE VALIENTE on 10/03/18846 Last Action: Discontinued Aspirin (Aspirin EC) 81 Mg Tablet.dr, 81 MG PO Q48H, (Reported) Discontinued Reason: No Longer Taking Entered as Reported by: MALLORIE VALIENTE on 10/03/18846 Last Action: Discontinued Baclofen (Baclofen) 10 Mg Tablet, 10 MG PO TID PRN for MUSCLE SPASMS Discontinued Reason: No Longer Taking Prescribed by: BRIGETTE LOPEZ on 10/19/18815 Last Action: Discontinued Hydrocodone Bit/Acetaminophen (Lortab 5 Mg Tablet) 1 Tab Tab, 1 TAB PO Q4H PRN for PAIN-MODERATE Discontinued Reason: No Longer Taking Prescribed by: BRIGETTE LOPEZ on 10/19/18815 Last Action: Discontinued Loratadine (Claritin) 10 Mg Tablet, 10 MG PO DAILY, (Reported) Discontinued Reason: No Longer Taking Entered as Reported by: MALLORIE VALIENTE on 10/03/18846 Last Action: Discontinued Melatonin (Melatonin) 3 Mg Tablet, 6 MG PO HS, (Reported) Discontinued Reason: No Longer Taking Entered as Reported by: MALLORIE VALIENTE on 10/03/18846 Last Action: Discontinued Multivitamin (Daily Value) 1 Each Tablet, 0.5 TAB PO DAILY, (Reported) Discontinued Reason: No Longer Taking Entered as Reported by: MALLORIE VALIENTE on 10/03/18846 Last Action: Discontinued [place]-3/Dha/Epa/Fish Oil (Fish Oil 1,000 mg Softgel) 1 Each Capsule, 1,000 MG PO DAILY, (Reported) Discontinued Reason: No Longer Taking Entered as Reported by: FADY GERARD on 06/19/15 1240 Last Action: Discontinued Sulfamethoxazole/Trimethoprim (Bactrim Ds Tablet) 1 Each Tablet, 1 EACH PO BID Discontinued Reason: No Longer Taking Prescribed by: FELIPA GUTIERREZ on 03/22/20 1654 Last Action: Discontinued Tolterodine Tartrate (Detrol LA) 4 Mg Cap, 4 MG PO DAILY, (Reported) Discontinued Reason: No Longer Taking Entered as Reported by: MALLORIE VALIENTE on 10/03/18846 Last Action: Discontinued Tolterodine Tartrate (Detrol LA) 2 Mg Cap, 2 MG PO HS, (Reported) Discontinued Reason: No Longer Taking Entered as Reported by: MALLORIE VALIENTE on 10/03/18846 Last Action: Discontinued Tramadol HCl (Tramadol HCl) 50 Mg Tablet, 50 MG PO Q6H PRN for PAIN-MODERATE Discontinued Reason: No Longer Taking Prescribed by: BRIGETTE LOPEZ on 10/19/18815 Last Action: Discontinued Triamcinolone Acet (Triamcinolone Acetonide 0.1% Cream) 15 Gm Cr, 15 GM TP BID Discontinued Reason: No Longer Taking Prescribed by: CAREY NOEL on 02/25/21 1501 Last Action: Discontinued [Lidocaine 4% Patch] 1 EA PATCH, 1 EA TOP DAILY Discontinued Reason: No Longer Taking Prescribed by: BRIGETTE LOPEZ on 10/19/18815 Last Action: Discontinued Physical Exam-Cardiology Physical Exam Vital Signs/I&O 11/29/21 11/30/21 11/30/21 11/30/21 23:02 01:00 03:19 06:48 Temp 36.0 35.4 Pulse 95 95 89 96 Resp 20 20 B/P (MAP) 160/88 (112) 145/82 (103) Pulse Ox 94 96 O2 Delivery Room Air Room Air 11/30/21 07:53 Temp 36.3 Pulse 97 Resp 16 B/P (MAP) 160/86 (110) Pulse Ox 96 O2 Delivery Room Air 11/30/21 00:00 Intake Total 700 ml Output Total 600 ml Balance 100 ml Capillary Refill : Less Than 3 Seconds Constitutional: other (Acknowledges when you call her name; disoriented otherwise or unable to answer) HEENT: hearing is well preserved, oral hygience is good Neck: No carotid bruit Respiratory: No accessory muscle use, No respiratory distress; chest expansion is symmetric, chest is bilaterally symmetric, lungs clear to auscultation Cardiovascular: irregularly irregular; No JVD; S1 and S2 Gastrointestinal: No tender; soft, round, audible bowel sounds Extremities: no lower extremity edema bilateral Neurologic/Psychiatric: other (left sided upper and lower extremity hemiparesis) Skin: No rash on exposed areas, No ulcerations on exposed areas Data Review Labs Laboratory Tests 11/29/21 10:42: Glucometer 133H 11/29/21 16:46: Glucometer 88 11/29/21 20:41: Glucometer 95 11/30/21 05:13: Glucometer 78 11/30/21 05:55: White Blood Count 8.6, Red Blood Count 5.13H, Hemoglobin 13.8, Hematocrit 43, Mean Corpuscular Volume 84, Mean Corpuscular Hemoglobin 27, Mean Corpuscular Hemoglobin Concent 32, Red Cell Distribution Width 13.8, Platelet Count 357, Mean Platelet Volume 11.0, Immature Granulocyte % (Auto) 0, Neutrophils (%) (Auto) 80H, Lymphocytes (%) (Auto) 11L, Monocytes (%) (Auto) 6, Eosinophils (%) (Auto) 2, Basophils (%) (Auto) 1, Neutrophils # (Auto) 6.9, Lymphocytes # (Auto) 1.0, Monocytes # (Auto) 0.5, Eosinophils # (Auto) 0.2, Basophils # (Auto) 0.0, Immature Granulocyte # (Auto) 0.0, Sodium Level 140, Potassium Level 4.1, Chloride Level 107, Carbon Dioxide Level 21, Anion Gap 12, Blood Urea Nitrogen 21H, Creatinine 1.00, Estimat Glomerular Filtration Rate 56, BUN/Creatinine Ratio 21, Glucose Level 76, Calcium Level 9.8, Corrected Calcium 10.3H, Magnesium Level 2.0, Total Bilirubin 0.6, Aspartate Amino Transf (AST/SGOT) 22, Alanine Aminotransferase (ALT/SGPT) 20, Alkaline Phosphatase 94, Total Protein 6.4, Albumin 3.4 Microbiology 11/27/21 MRSA Screen - Preliminary, Resulted Radiology NAME: CHAVO JOSE [facility] REC#: [id number] PT STATUS: REG ER : 1940 PHYSICIAN: JUDY ALLEN MD ADMIT DATE: 11/27/21/ER Draft Date of Exam:11/27/21 CHEST 1 VIEW, AP/PA ONLY INDICATION: Neuro deficit COMPARISON: 10/02/2018 FINDINGS: Single view of the chest demonstrates cardiac enlargement with slight central vascular congestion. There is no pneumothorax or effusion. Osseous structures are stable. IMPRESSION: Cardiac enlargement with central vascular congestion. Dictated on workstation # [id number] Dict: 11/27/21905 Trans: 11/27/21908 SOL [id number] Interpreted by: CATALINO HUDDLESTON Electronically signed by: NAME: CHAVO JOSE [facility] REC#: [id number] PT STATUS: REG ER : 1940 PHYSICIAN: JUDY ALLEN MD ADMIT DATE: 11/27/21/ER Draft Date of Exam:11/27/21 CT HEAD WO-R/O STROKE PROCEDURE: CT head wo r/o stroke. TECHNIQUE: Multiple contiguous axial images were obtained through the brain without the use of intravenous contrast. Auto Exposure Controls were utilized during the CT exam to meet ALARA standards for radiation dose reduction. INDICATION: Was difficult to arouse this morning has had recent falls and now with left-sided weakness. I have no priors. There is no intracerebral hemorrhage. There is a mild degree of cerebral cortical atrophy unremarkable for age. The ventricular caliber is congruent with the degree of sulcation and there is no manfred hydrocephalus. There is an old appearing lacunar infarct along the left basal ganglia near the posterior limb of the left internal capsule. There is some chronic periventricular white matter changes symmetric and favored to reflect chronic small vessel disease. This is also commonly encountered in patients of this age. There is intracranial atherosclerotic vascular calcifications. There is no sulcal effacement there is no loss of the barnett-white matter differentiations. The basilar cisterns are patent. There is no evidence for an elevation to the intracerebral pressures. There are no abnormal extra-axial fluid collections. Orbits, sinuses and calvarium nonacute. IMPRESSION: Dictated on workstation # [id number] Dict: 11/27/21 0901 Trans: 11/27/21 0921 [facility] [id number] Interpreted by: DORIS MOHAMUD Electronically signed by: NAME: CHAVO JOSE [facility] REC#: [id number] PT STATUS: REG ER : 1940 PHYSICIAN: JUDY ALLEN MD ADMIT DATE: 11/27/21/ER Draft Date of Exam:11/27/21 CT ANGIO HEAD/NECK Clinical indication: Patient fell several times last night starting at 12:30 this morning and could not get her out of bed. Noticeable left-sided weakness in arm. Exams: 1: Head CT with and without IV contrast. Auto Exposure Controls were utilized during the CT exam to meet ALARA standards for radiation dose reduction. 2: CT angiogram of the head and neck performed with 100 cc of Omnipaque 350 IV contrast. Sagittal and coronal MIP reformations were created for better visualization of vascular anatomy. CT angiogram was post-processed using RAPID LVO detection to include quantitative measurements of cerebral blood flow and automated results notification to the stroke and/or neurointerventional team. Comparison: Head CT without contrast dated 11/27/2021. Ultrasound of the carotid artery dated 10/06/2011.. Findings: Head CT: There is no interval large vessel territory acute cerebral infarct. There are patchy areas of low-density involving white matter regions of both cerebral hemispheres, likely representing chronic small vessel ischemic disease. There is a subtle area of cortical low density involving the lateral right frontal lobe, likely ribs and a small chronic infarct. There is a 6 mm area of enhancement involving the genu of the right internal capsule region which was not seen on the arterial phase, but seen on the delayed phase. There is no adjacent parenchymal edema. This may represent an area of capillary telangiectasia. There are no other areas of abnormal IV contrast enhancement. Dural venous sinuses are patent. There is no hydrocephalus, brain herniation or midline shift. Basal cisterns are unremarkable. The extracranial soft tissues, skull, and orbits are unremarkable. CT Angiogram: Three-vessel aortic arch is seen. There is mild to moderate narrowing of the origin of the right subclavian artery. Otherwise, the bilateral subclavian arteries are patent. The brachiocephalic artery is patent. The left common carotid artery is patent. There is mild stenosis involving the proximal cervical left ICA. Otherwise, the left ECA and cervical left ICA are patent. Right common carotid artery is patent. There is mild narrowing of the origin of the right ECA. Otherwise, the remainder of the right ECA is patent. 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 There is contrast seen within the right ophthalmiac artery likely from collateral flow. There is an area of severe stenosis involving the paraclinoid left ICA and supraclinoid left ICA. Otherwise, the petrous, cavernous, and left ICA terminus are patent. Azygous A2 KENDALL noted. The KENDALL and distal branches are patent. The bilateral MCAs and distal branches are patent. There is moderate to severe stenosis involving the distal right P1 OFFICE COPY SELECTOR. Otherwise, the right OFFICE COPY SELECTOR and distal branches are patent. left OFFICE COPY SELECTOR is seen. There is an area of moderate to severe stenosis involving the proximal left P2 OFFICE COPY SELECTOR region. The remainder of the left OFFICE COPY SELECTOR and distal branches are patent. The basilar artery, bilateral superior cerebellar arteries, and intradural bilateral vertebral arteries are patent. The bilateral PICAs are patent. The cervical vertebral arteries are patent bilaterally. There is cervical spine degenerative disease with facet arthropathy and vertebral body spurs. Multinodular thyroid lobes are noted. Largest nodule low density in the left thyroid region measuring grossly 3.8 cm in greatest axial dimension. There is atelectasis involving both upper lungs. 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 This area of occlusion is of unknown age. There is contrast within the right ophthalmic artery and patency of the [place] vessels. This occlusion was not noted on the comparison ultrasound of the carotids dated 10/06/2011. 2: There is a 6 mm area of enhancement involving the genu of the right internal capsule region which is not seen on the arterial phase, but seen on the delayed phase. There is no adjacent parenchymal edema. This is nonspecific. MRI of the brain with and without contrast is suggested for further evaluation. 3: There is no CT evidence of acute intracranial infarct. There is no abnormal IV contrast enhancement. 4: There is moderate to severe stenosis involving the distal right P1 OFFICE COPY SELECTOR and proximal left P2 OFFICE COPY SELECTOR region. There is severe stenosis involving the paraclinoid and supraclinoid left ICA regions. 5: The remainder of the [place] vascular structures and neck shows no significant stenosis. Results of this report discussed with Dr. Judy Allen via the telephone on 11/27/2021 at approximately 1110 hours. 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 This area of occlusion is of unknown age.There is moderate to severe stenosis involving the distal right P1 OFFICE COPY SELECTOR and proximal left P2 OFFICE COPY SELECTOR region. There is severe stenosis involving the paraclinoid and supraclinoid left ICA regions. per CTA on 11-27-21 - Management per stroke team - Per the ED note of 11-27-21: Multiple discussions with [facility], initial discussion was at [phone] Platt who recommended CT angiography of the brain and cervical vessels. 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 She has no "large vessel occlusion" and therefore is not a candidate for intervention. Dr. Platt was made aware of these results at 11:15 AM. She recommends permissive hypertension, holding her blood pressure medications. Daily aspirin and a head MRI. She would need to be evaluated for rehab. A-fib with controlled - undetermined length of time - first dx on ECG of 11-27-21 at the [facility] ED - advise OAC with Eliquis if ok with Dr. Lopez and the stroke team Discussion and Recomendations Newly dx a-fib of undetermined length of time - advise OAC with Eliquis if ok with Dr. Lopez and the stroke team Carotid arterial dz - please seen note from [facility] stroke team above as per the ED note - advise eval per CV surgical services at a tertiary care facility Echocardiogram Management of CVA - per stroke team Monitor lab Replace electrolytes as indicated Further recs will be based on her hospital course We would like to thank Dr. Lopez for this consult Clinical Quality Measures Stroke: Date of last known well: Nov 27, 2021 Time of last known well: 00:30 Symptoms onset unknown: Yes DARCY DENNIS Nov 27, 2021 13:06
[2021-11-27] MEDS ORDERED: RT-ALBUTEROL SULF 2.5 MG/3 ML PRE-MIX VIAL INH PRN (14:00)
--- NOTE | 2021-11-27 14:31 | Diagnostic Imaging Report ---
PROCEDURE: MR imaging of the brain without contrast. TECHNIQUE: Multiplanar, multisequence MR imaging of the brain was performed without contrast. DATE: November 27, 2021. COMPARISON: CT angiography head and neck November 27, 2021. HISTORY: 81-year-old female, left-sided weakness. Evaluation for stroke. FINDINGS: There is diffusion restriction involving the right frontoparietal cortex in the region of the central sulcus also extending into the right hdez radiata. There is an additional focus of diffusion restriction in the right anterior occipital lobe cortex/juxtacortical white matter. There are FLAIR signal changes at these locations which are consistent with areas of acute infarct which are not likely within a few hours of age. There are no areas of abnormal intracranial susceptibility. There is proportional prominence of the ventricles and additional CSF spaces consistent with mild cerebral volume loss. There are multiple foci of T2 and FLAIR hyperintense signal in the periventricular and subcortical white matter which are nonspecific but most likely reflect mild to moderate findings of chronic small vessel ischemic disease. There is no abnormal extra axial fluid collection. There is no acute intracranial hemorrhage. There is no mass effect or midline shift. There is a polypoid T2 hyperintense lesion in the right maxillary sinus most likely reflecting a mucous retention cyst or polyp. There is no air-fluid level in the paranasal sinuses. The mastoid air cells and middle ears are well-aerated bilaterally. There is a near empty sella. IMPRESSION: 1. Acute infarcts not within a few hours of age involving the right frontoparietal cortex adjacent of the central sulcus and immediately adjacent to right hdez radiata as well as the right anterior occipital lobe cortex/juxtacortical white matter. 2. Mild cerebral volume loss and mild to moderate findings of chronic small vessel ischemic disease. Dictated by: Dictated on workstation # [id number]
--- NOTE | 2021-11-27 14:56 | Physical Therapy Evaluation ---
PT Evaluation-General Medical Diagnosis Admission Date Nov 27, 2021 at 12:03 Medical Diagnosis: CVA Onset Date: Nov 27, 2021 Therapy Diagnosis Therapy Diagnosis: impaired mobility, strength, balance Height/Weight Height (Feet): 5 Height (Inches): 5.00 Weight (Pounds): 155 Weight (Ounces): 6.0 Referral Physician: Brigette Lopez DO Reason for Referral: Evaluation/Treatment Medical History Pertinent Medical History: Arthritis, HTN Additional Medical History Past Medical History Surgeries: Bowel Surgery, Hysterectomy, Orthopedic Cardiac: Hypertension Reproductive: No Musculoskeletal: Arthritis, Fractures HEENT: Cataract Psychosocial: Sleep Difficulties Skin/Integumentary: Recent Skin Changes Reviewed History: Yes Social History Current Living Status: Spouse Entry Into Home: Level Entry Prior Prior Level of Function SCALE: Activities may be completed with or without assistive devices. 3-Zfgulnkxzn-ayooygr completes the activity by him/herself with no assistance from a helper. 5-Set-up or Clean-up Assistance-helper sets up or cleans up; patient completes activity. Inland assists only prior to or following the activity. 4-Supervision or Touching Assistance-helper provides verbal cues and/or touching/steadying and/or contact guard assistance as patient completes activity. Assistance may be provided throughout the activity or intermittently. 3-Partial/Moderate Assistance-helper does LESS THAN HALF the effort. Inland lifts, holds or supports trunk or limbs, but provides less than half the effort. 2-Substantial/Maximal Assistance-helper does MORE THAN HALF the effort. Inland lifts or holds trunk or limbs and provides more than half the effort. 7-Tkjbiatlc-uxmvpt does ALL the effort. Patient does none of the effort to complete the activity. Or, the assistance of 2 or more helpers is required for the patient to complete the activity. If activity was not attempted, code reason: 7-Patient Refused. 9-Not Applicable-not attempted and the patient did not perform the activity before the current illness, exacerbation or injury. 10-Not Attempted due to Environmental Limitations-(lack of equipment, weather restraints, etc.). 88-Not Attempted due to Medical Conditions or Safety Concerns. Bed Mobility: 6 Transfers (B,C,W/C): 6 Gait: 6 Stairs: 6 Indoor Mobility (Ambulation): Independent Stairs: Independent SPC PT Evaluation-Current Subjective Patient in bed pre tx, agrees to PT, has no complaints of pain. Patient has difficulty speaking. Pt/Family Goals none stated Objective Patient Orientation: Person, Confused Attachments: Moore Catheter ROM/Strength ROM Lower Extremities WNL Strength Lower Extremities patient has no voluntary movement of the left leg but does have some involuntary movement. She has voluntary movement of the right leg but can't follow dir ections for MMT. Sensory Hearing: Functional Transfers Roll Left to Right (QC): 3 Sit to Lying (QC): 2 Lying to Sitting/Side of Bed(Q: 2 Patient needs max assist for supine <-> sit, she sits on the side of the bed and can maintain her sitting balance without assist but does fall slightly to the left side a couple of times. Patient has left neglect, will not look voluntarily to the left side. Patient sits for about 5 min before laying back down, she is very tired. Assessment/Needs Patient in bed post tx with nurse call, phone, tray, all needs met. Patient has impaired mobility, strength, endurance. Has left neglect and left hemiparesis. Rehab Potential: Guarded PT Track Patrol Goals Track Patrol Goals PT Detention Goals Time Frame: Dec 04, 2021 Roll Left & Right (QC): 4 Sit to Lying (QC): 3 Lying-Sitting on Side/Bed(QC): 3 Sit to Stand (QC): 3 Chair/Tqp-nq-Bzemb Xfer(QC): 3 PT Plan Problem List Problem List: Activity Tolerance, Functional Strength, Safety, Balance, Gait, Transfer, Bed Mobility, ROM Treatment/Plan Treatment Plan: Continue Plan of Care Treatment Plan: Bed Mobility, Education, Functional Activity Anitra, Functional Strength, Gait, Safety, Therapeutic Exercise, Transfers Treatment Duration: Dec 04, 2021 Frequency: 6 times per week Estimated Hrs Per Day: .25 hour per day Patient and/or Family Agrees t: Yes Safety Risks/Education Patient Education: Correct Positioning, Safety Issues Teaching Recipient: Patient Teaching Methods: Demonstration, Discussion Response to Teaching: Reinforcement Needed Discharge Recommendations Plan Patient will perform bed mobility and transfer training, balance and endurance training, functional strengthening, gait training, and education, to improve functional mobility and independence at home. Therapy Discharge Recommendati: 24 Hour Supervision, Post Acute PT Time/GCodes Time In: 1437 Time Out: 1447 Total Billed Treatment Time: 10 Total Billed Treatment 1 visit GERALDINE 10' EDDIE MOSS PT Nov 27, 2021 14:56
--- NOTE | 2021-11-27 15:00 | Occupational Therapy Eval ---
OT Evaluation-General/PLF Medical Diagnosis Admission Date Nov 27, 2021 at 12:03 Medical Diagnosis: afib, CVA Onset Date: Nov 27, 2021 Therapy Diagnosis Therapy Diagnosis: decreased ADL Status, impaired LUE, L neglect Height/Weight Height (Feet): 5 Height (Inches): 5.00 Weight (Pounds): 155 Weight (Ounces): 6.0 Referral Physician: Jessica Referral Reason: Evaluation/Treatment Medical History Pertinent Medical History: Arthritis, HTN Additional Medical History Bowel surgery, arthritis, L hip fx Current History EMS from home, several falls since 12:30 am and couldn't get pt out of bed, LUE weakness Social History Home: Single Level Current Living Status: Spouse Entry Into Home: Level Entry ADL-Prior Level of Function SCALE: Activities may be completed with or without assistive devices. 9-Gfvnhvzuhg-upmuild completes the activity by him/herself with no assistance from a helper. 5-Set-up or Clean-up Assistance-helper sets up or cleans up; patient completes activity. Pullman assists only prior to or following the activity. 4-Supervision or Touching Assistance-helper provides verbal cues and/or touching/steadying and/or contact guard assistance as patient completes activity . Assistance may be provided throughout the activity or intermittently. 3-Partial/Moderate Assistance-helper does LESS THAN HALF the effort. Pullman lifts, holds or supports trunk or limbs, but provides less than half the effort. 2-Substantial/Maximal Assistance-helper does MORE THAN HALF the effort. Pullman lifts or holds trunk or limbs and provides more than half the effort. 0-Lvyjjmkrn-ztpnnx does ALL the effort. Patient does none of the effort to complete the activity. Or, the assistance of 2 or more helpers is required for the patient to complete the activity. If activity was not attempted, code reason: 7-Patient Refused. 9-Not Applicable-not attempted and the patient did not perform the activity before the current illness, exacerbation or injury. 10-Not Attempted due to Environmental Limitations-(lack of equipment, weather restraints, etc.). 88-Not Attempted due to Medical Conditions or Safety Concerns. ADL PLOF Comments Pt reports IND with ADLs and functional mobility at PLOF, no AD Self Care: Independent Functional Cognition: Independent OT Current Status Subjective Pt in bed, agreeable to OT Tx. She appears to have L neglect. Mental Status/Objective Patient Orientation: Person, Confused Attachments: Moore Catheter Current Upper Extremity ROM No active movement noted LUE Upper Extremity Coordination decreased due to impaired functional use LUE Upper Extremity Sensation unable to formally assess Upper Extremity Strength 0/5 LUE, no active movement palpated. ADL-Treatment Eating (QC): 88 Oral Hygiene (QC): 88 Shower/Bathe Self (QC): 88 Lower Body Dressing (QC): 88 On/Off Footwear (QC): 1 Toileting Hygiene (QC): 1 Other Treatments Pt in bed, agreeable to OT Tx. Pt transferred supine to sit EOB, max A. Able to maintain sitting balance without assistance, but falls slightly to L side a couple of times. Pt unsafe to attempt standing at this time due to severe L neglect and decreased LUE/LE function. Pt will not look voluntarily to L side. Pt sits ~5 mins, then transfers supine. Post tx, pt in bed, call light in reach and all needs met. Education OT Patient Education: Correct positioning, Energy conservation, Modified ADL techniques, Progress toward Goal/Update tx plan, Purpose of tx/functional activities, Rehab process Teaching Recipient: Patient Teaching Methods: Discussion Response to Teaching: Reinforcement Needed OT Mixing Machine Feeder Goals Mixing Machine Feeder Goals Time Frame: Dec 11, 2021 Eating (QC): 5 Oral Hygiene (QC): 5 Toileting Hygiene (QC): 3 Shower/Bathe Self (QC): 3 Upper Body Dressing (QC): 4 Lower Body Dressing (QC): 3 On/Off Footwear (QC): 3 Additional Goals: 1-Demonstrate ADL Tasks, 2-Verbalize Understanding, 3- ImproveStrength/Anitra 1=Demonstrate adherence to instructed precautions during ADL tasks. 2=Patient will verbalize/demonstrate understanding of assistive devices/modifications for ADL. 3=Patient will improve strength/tolerance for activity to enable patient to perform ADL's. OT Education/Plan Problem List/Assessment Assessment: Decreased Activ Tolerance, Decreased Safety Aware, Decreased UE Strength, Impaired Bed Mobility, Impaired Cognition, Impaired Coordination, Impaired Funct Balance, Impaired I ADL's, Impaired Self-Care Skills, Restricted Funct UE ROM Discharge Recommendations Plan/Recommendations: Continue POC Treatment Plan/Plan of Care Patient would benefit from OT for education, treatment and training to promote independence in ADL's, mobility, safety and/or upper extremity function for ADL's. Plan of Care: ADL Retraining, Functional Mobility, UE Funct Exercise/Act, UE Neuromus Re-Ed/Coord, Visual/Perceptual Retrain Treatment Duration: Dec 11, 2021 Frequency: 5 times per week Estimated Hrs Per Day: .25 hour per day Agreement: Yes Rehab Potential: Guarded Time/GCodes Start Time: 14:37 Stop Time: 13:47 Total Time Billed (hr/min): 10 Billed Treatment Time 1, DOMINIQUE MARTIN OT Nov 27, 2021 15:00
[2021-11-27] MEDS: NS IV 1000 ML 1,000 ML IV SCH (15:01)
--- NOTE | 2021-11-27 15:12 | Tele-ICU Consult ---
History of Present Illness History of Present Illness Date Seen by Provider: Nov 27, 2021 Time Seen by Provider: 15:07 Date of Admission 11/27/21 History of Present Illness Available chart/vitals/labs/images reviewed. Video assessment done using telemetry ICU camera, rest of exam as per RN. Discussion with the RN, exam as per RN. She is a 81-year-old female with past medical history of fall, arthritis in the spine ,right hip, previous history of for left hip fracture and s/p surgery and now presented via emergency room because she has been falling since last night according to her . This a.m. he could not get her up from the bed hence he called EMS and she was brought to the emergency room this a.m. and she is found to have a left hemiplegia. Initially she also has a atrial fibrillation with rapid ventricular rate which subsequently converted to sinus rhythm. A CT of the head was done which was negative for any acute infarcts. ER physician consulted [facility] who recommended CT angiogram of the head and neck and 8 shoulder right cervical internal carotid artery blockage. The stroke team at [facility] suggested's conservative management without any intervention because she is out of the window for TNKase or tPA and it appears that she completed her stroke. She is admitted to the intensive care unit for further evaluation and management. [facility] stroke team advised permissive hypertension and aspirin. She is awake alert and able to answer some questions. There is no mention of any hypertension but she does take Lortab for her back pain. She also takes apparently aspirin 81 mg once a day. not known to have any atrial fibrillation. A cardiology consultation has been requested. I made a video visit and discussed with the patient and [employer]. Allergies and Home Medications Allergies Coded Allergies: No Known Drug Allergies (Unverified , 05/10/14) Home Medications Acetaminophen 500 Mg Tablet, 500 MG PO Q6H PRN for PAIN-MILD, (Reported) TAKES ALONG WITH A TRAMADOL TABLET Aspirin 81 Mg Tablet.dr, 81 MG PO Q48H, (Reported) Atenolol 50 Mg Tablet, 50 MG PO DAILY, (Reported) Baclofen 10 Mg Tablet, 10 MG PO TID PRN for MUSCLE SPASMS Prescribed by: LUIS FELIPE COREAS on 10/19/18 0816 Hydrocodone Bit/Acetaminophen 1 Tab Tab, 1 TAB PO Q4H PRN for PAIN-MODERATE Prescribed by: LUIS FELIPE COREAS on 10/19/18 0816 Loratadine 10 Mg Tablet, 10 MG PO DAILY, (Reported) Melatonin 3 Mg Tablet, 6 MG PO HS, (Reported) Multivitamin 1 Each Tablet, 0.5 TAB PO DAILY, (Reported) [place]-3/Dha/Epa/Fish Oil 1 Each Capsule, 1,000 MG PO DAILY, (Reported) Sulfamethoxazole/Trimethoprim 1 Each Tablet, 1 EACH PO BID Prescribed by: FELIPA GUTIERREZ on 03/22/20 1754 Tolterodine Tartrate 4 Mg Cap, 4 MG PO DAILY, (Reported) Tolterodine Tartrate 2 Mg Cap, 2 MG PO HS, (Reported) Tramadol HCl 50 Mg Tablet, 50 MG PO Q6H PRN for PAIN-MODERATE Prescribed by: LUIS FELIPE COREAS on 10/19/18815 Triamcinolone Acet 15 Gm Cr, 15 GM TP BID Prescribed by: CAREY NOEL on 02/25/21 1501 [Lidocaine 4% Patch] 1 EA PATCH, 1 EA TOP DAILY Prescribed by: LUIS FELIPE COREAS on 10/19/18 0816 Past Medical/Social/Family Hx Patient Social History Marrital Status: Tobacco Use?: No Smoking Status: Never a Smoker Smokeless Tobacco Frequency: Never a User Use of E-Cig and/or Vaping dev: No Substance use?: No Alcohol Use?: No Pt stated abuse/neglect: No Immunizations Up To Date First/Initial COVID19 Vaccinat: 2020 Second COVID19 Vaccination Brian: 2020 Date of Pneumonia Vaccine: Mar 20, 2018 Current Status Advance Directives: No Communicates: Verbally Primary Language: Croatian Preferred Spoken Language: Croatian Is interpretation needed?: No Sensory deficits: Speech impairment Implanted or Applied Medical D: None Review of Systems Constitutional: see HPI (ROS PER RN) Focused Exam Height, Weight, BMI Height: 5'5.00" Weight: 155lbs. 6.0oz. 70.593124gd; 20.47 BMI Method:Stated Exam Exam Patient acknowledged, consented, and participated in this virtual visit which was conducted using real time audio/video Vital Signs Date Time Temp Pulse Resp B/P (MAP) Pulse Ox O2 Delivery O2 Flow Rate FiO2 11/27/21 14:00 60 13 141/64 96 Room Air 11/27/21 13:00 68 22 148/86 99 Room Air 11/27/21 12:59 83 11/27/21 12:45 96 Room Air 11/27/21 12:45 72 16 177/69 98 Room Air 11/27/21 08:18 36.3 83 16 148/89 (108) 96 Room Air Height & Weight Height: 5'5.00" Weight: 155lbs. 6.0oz. 70.446200tp; 20.47 BMI Method:Stated General Appearance: Chronically ill Capillary Refill: Less Than 3 Seconds Peripheral Pulses: 2+ Radial Pulses (R), 2+ Radial Pulses (L) Gastrointestinal: normal bowel sounds, non tender, soft Other comments PE PER RN AND PRIMARY Results Lab Laboratory Tests 11/27/21 08:39 Assessment/Plan Assessment/Plan 1. Right ICA stroke with Left hemiplegia. 2.Atrial fibrillation of uncertain duration 3. 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 keep SBP between 140-180 2. aspirin per stoke team. 3. Anticoagulation for afib when ok with stroke team. 4. Get Echocardiogram. 5. PT/OT/ST 6. LDL goal <70 7. HbA1c goal <6.0 8.Cardiology consultation Critical Care: Critically Ill Patient Time spent with patient (mins): 35 REJI NORRIS MD Nov 27, 2021 15:12
--- NOTE | 2021-11-27 15:30 | ST Dysphagia Evaluation ---
Speech Evaluation-General Medical Diagnosis afib, CVA Onset Date: Nov 27, 2021 Therapy Diagnosis Therapy Diagnosis: Intact Oropharyngeal Swallow Precautions Precautions: Fall, Aspiration Precautions/Isolations: Aspiration, Fall Prevention, Standard Precautions Referral Referring Physician: Dr. Brigette Lopez Reason for Referral: Evaluation/Treatment Medical History Pertinent Medical History: Arthritis, HTN Current History The patient is an 81-year-old female with a past medical history of HTN and arthritis, who presented to the emergency department by ambulance with a chief complaint of multiple falls throughout the night and left sided weakness. CXR: 11/27/21: IMPRESSION: Cardiac enlargement with central vascular congestion. Reviewed History: Yes Social History Current Living Status: Spouse Speech PLF/Current-Dysphagia Prior Level of Function The patient was unable to provide prior level of function information to the inician. Per patient, "I don't know how to answer that." The patient was unable to provide specifics regarding P.O. diet consistency and denied s/s of suspected aspiration (however, full comprehension of discussion remains questionable due to suspected receptive and expressive aphasia). Subjective The patient was lying in bed, sleeping upon entrance to her room by the clinician. The patient woke easily with a verbal greeting by the clinician and was agreeable to participation in clinical bedside swallowing evaluation. Prior to P.O. bolus trials, the patient's SpO2% was 98% on room air. Cognitive Status Patient Orientation: Person Oral Motor Skills Dentition: Natural Ability to Follow Directions: Fair Oral Expression Ability: Moderate Impairment Voice Voice Phonatory-Based Quality: Normal Voice Pitch: Normal Voice Loudness: Normal Face Facial Symmetry: Asymmetrical (Slight left weakness suspected by clinician at rest, however, not appreciated with retraction. The patient reports similar sensation, bilaterally.) Oral-Facial Assessment Oral-Facial Dentition: Normal Labial Seal Description: Normal Smile: Normal Lingual Protrusion: Normal Lingual ROM: Normal Lingual Strength: Normal Volitional Dry Swallow: Yes Dysphagia Evaluation Consistencies Presented: Regular, Thin Liquid (Via teaspoon and straw.), Pureed The patient displayed appropriate removal of bolus material from the teaspoon and straw. Anterior bolus spillage was not appreciated with any consistency. Posterior transfer of bolus material was appreciated. Minimal lingual residue (midline) was present following the solid cracker. The residual was cleared with a subsequent swallow of thin liquid. No left pocketing was appreciated. Laryngeal elevation was present to palpation. A delayed pharyngeal swallow was not suspected. The patient was provided thin liquid via teaspoon and straw, puree, and solid consistencies. The patient did not display s/s of suspected aspiration with any trial presented and her vocal quality remained consistently clear. The patient's SpO2% remained stable throughout the evaluation at 98%. Dietary Recommendations: Regular Liquid Recommendations: Thin Recommendations: - Regular consistency diet with thin liquids, as tolerated. - Fully upright and alert for P.O. intake. - Full feeding assistance and supervision. The clinician presented the patient with the cracker and instructed the patient to self-feed. The patient stated, "I can do that." and continued to look at the clinician. The clinician provided the instruction two additional times. The patient subsequently stated, "I don't think I can do that yet." As the clinician suspects aspects of receptive and expressive aphasia, the patient may display difficulty with initiating or comprehending utensils or feeding techniques. - Assess for left oral pocketing throughout and following meals. - Monitor for s/s of suspected aspiration with P.O. intake. If demonstrated, contact speech pathology. The results of the clinical bedside swallow evaluation were provided to the patient. As the patient appears to display aspects of receptive and expressive aphasia, full comprehension of the discussed material is not suspected by the clinician. The RN was provided the results following completion. Dysphagia Evaluation Summary The patient demonstrated an intact oropharyngeal swallow mechanism and did not demonstrate s/s of suspected aspiration with thin liquids, puree, or solid consistencies. Speech-Plan Treatment Plan Speech Therapy Treatment Plan: Discontinue ST (Dysphagia, only. Continue with Speech/Language Evaluation.) Treatment Duration: Nov 27, 2021 Frequency: 1 time per week Estimated Hrs Per Day: .5 hour per day Rehab Potential: Guarded Pt/Family Agrees to Plan: Yes Safety Risks/Education Teaching Recipient: Patient Teaching Methods: Discussion Response to Teaching: Reinforcement Needed Education Topics Provided: Results, Recommendations: The results of the clinical bedside swallow evaluation were provided to the patient. As the patient appears to display aspects of receptive and expressive aphasia, full comprehension of the discussed material is not suspected by the clinician. The RN was provided the results following completion. Time Speech Therapy Time In: 14:58 Speech Therapy Time Out: 15:18 Total Billed Time: 20 Billed Treatment Time 1, BRY, DYST CED [facility] ST Nov 27, 2021 15:29
[2021-11-27] MEDS ORDERED: ZOLP5TAB PO (16:09)
[2021-11-27] MEDS ORDERED: BACL10TA PO (16:09)
[2021-11-27] MEDS ORDERED: TRAM50TA3 PO (16:09)
--- NOTE | 2021-11-27 16:43 | Diagnostic Imaging Report ---
PROCEDURE: US carotid duplex, bilateral. TECHNIQUE: Multiple real-time grayscale images were obtained over the carotid arteries in various projections, bilaterally. Additional spectral analysis and color Doppler duplex images were also obtained. INDICATION: Stroke, left-sided weakness. COMPARISON: Ultrasound from 10/06/2011. CT from 11/27/2021. FINDINGS: Right carotid: The right common carotid artery demonstrates mild intimal thickening and atherosclerosis with no significant stenosis. The proximal ICA demonstrates moderate atherosclerosis with some flow, but the mid and distal ICA are occluded, as described on the prior CTA head and neck. The ECA appears patent, although there is moderate atherosclerosis proximally. The vertebral artery is antegrade. Carotid upstrokes in the common carotid artery are brisk. Left carotid: The left common carotid artery demonstrates mild intimal thickening and atherosclerosis with no stenosis. Carotid upstrokes are brisk. The internal carotid artery is widely patent. The vertebral artery is antegrade. The ECA is patent. There is a large mostly cystic thyroid nodule in the left thyroid measuring at least 3.5 cm, with small mural solid components. Parameters based on the consensus panel Lima-Scale and Doppler ultrasound criteria published April 2003, Radiology, Volume 229. DOPPLER (peak systolic velocity M/S Right Left CCA .52 .68 ICA Proximal .61 .67 ICA Mid N/A .70 ICA Distal .31 .71 RATIO 1.16 1.05 ECA .80 .61 VERT .65 .44 IMPRESSION: 1. Complete occlusion of the right internal carotid artery, as seen on the CTA from the same day. 2. Mild atherosclerosis elsewhere in the bilateral carotids with no other high-grade stenosis seen. 3. Large mostly cystic left thyroid nodule with small peripheral solid components. Consider dedicated thyroid ultrasound when the patient is able. Dictated by: Dictated on workstation # [id number]
[2021-11-27] MEDS: inSUlin ASPART (NovoLOG) 1 UNIT/0.01 ML (CHARGE PER UNIT) SQ SCH ×2 (17:25→21:25)
--- NOTE | 2021-11-27 18:11 | Consultation-Cardiology ---
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 Jose is an 81 yr old female who has been admitted to ICU 1 from the ED with CVA. She reports she is here because she fell, but is unable to provide any other information. She does not acknowledge any left sided paralysis. Per the ED report her spouse stated she had been falling at home around 1230 y esterday evening. He went to get her out of bed and she was unable to get up therefore EMS was summoned. Review of Systems-Cardiology Review of Systems Constitutional: other (due to dyphasia, we are not able to obtain a review of systems) CII-Zqbdtj-Porshb Hx Patient Social History Marrital Status: Smoking Status: Never a Smoker 2nd Hand Smoke Exposure: No Have you traveled recently?: No Alcohol Use?: No Pt feels they are or have been: No Immunizations Up To Date Tetanus Booster (TDap): Unknown Date of Pneumonia Vaccine: Mar 20, 2018 Date of Influenza Vaccine: Mar 20, 2020 Past Medical History PMH As described under Assessment. Family Medical History Family Medical History: Unable to obtain from patient Past medical record review in [employer] shows h/o mother having CVA and CV dz; father having CV dz Family History: Cardiovascular disease 19 FATHER 19 MOTHER FH: stroke 19 MOTHER Allergies and Home Medications Allergies Coded Allergies: No Known Drug Allergies (Unverified , 05/10/14) Patient Home Medication List Home Medication List Reviewed: Yes Atenolol (Atenolol) 50 Mg Tablet, 50 MG PO DAILY, (Reported) Entered as Reported by: MALLORIE VALIENTE on 10/03/18 0816 Last Action: Reviewed Baclofen (Baclofen) 10 Mg Tablet, 10 MG PO TID PRN for MUSCLE SPASMS, (Reported) Entered as Reported by: PRINCE SEWELL on 11/27/21 1609 Last Action: Reviewed Tramadol HCl (Tramadol HCl) 50 Mg Tablet, 100 MG PO Q6H PRN for PAIN-MODERATE (5-7), (Reported) Entered as Reported by: PRINCE SEWELL on 11/27/211608 Last Action: Reviewed Zolpidem Tartrate (Ambien) 5 Mg Tablet, 5 MG PO HS, (Reported) Entered as Reported by: PRINCE SEWELL on 11/27/211608 Last Action: Reviewed Discontinued Medications Acetaminophen (Tylenol Extra Strength) 500 Mg Tablet, 500 MG PO Q6H PRN for PAIN-MILD, (Reported) Discontinued Reason: No Longer Taking Entered as Reported by: MALLORIE VALIENTE on 10/03/18846 Last Action: Discontinued Aspirin (Aspirin EC) 81 Mg Tablet.dr, 81 MG PO Q48H, (Reported) Discontinued Reason: No Longer Taking Entered as Reported by: MALLORIE VALIENTE on 10/03/18846 Last Action: Discontinued Baclofen (Baclofen) 10 Mg Tablet, 10 MG PO TID PRN for MUSCLE SPASMS Discontinued Reason: No Longer Taking Prescribed by: BRIGETTE COREAS on 10/19/18815 Last Action: Discontinued Hydrocodone Bit/Acetaminophen (Lortab 5 Mg Tablet) 1 Tab Tab, 1 TAB PO Q4H PRN for PAIN-MODERATE Discontinued Reason: No Longer Taking Prescribed by: BRIGETTE COREAS on 10/19/18815 Last Action: Discontinued Loratadine (Claritin) 10 Mg Tablet, 10 MG PO DAILY, (Reported) Discontinued Reason: No Longer Taking Entered as Reported by: MALLORIE VALIENTE on 10/03/18846 Last Action: Discontinued Melatonin (Melatonin) 3 Mg Tablet, 6 MG PO HS, (Reported) Discontinued Reason: No Longer Taking Entered as Reported by: MALLORIE VALIENTE on 10/03/18846 Last Action: Discontinued Multivitamin (Daily Value) 1 Each Tablet, 0.5 TAB PO DAILY, (Reported) Discontinued Reason: No Longer Taking Entered as Reported by: MALLORIE VALIENTE on 10/03/18846 Last Action: Discontinued Falun-3/Dha/Epa/Fish Oil (Fish Oil 1,000 mg Softgel) 1 Each Capsule, 1,000 MG PO DAILY, (Reported) Discontinued Reason: No Longer Taking Entered as Reported by: FADY GERARD on 06/19/15 1240 Last Action: Discontinued Sulfamethoxazole/Trimethoprim (Bactrim Ds Tablet) 1 Each Tablet, 1 EACH PO BID Discontinued Reason: No Longer Taking Prescribed by: FELIPA GUTIERREZ on 03/22/20 1754 Last Action: Discontinued Tolterodine Tartrate (Detrol LA) 4 Mg Cap, 4 MG PO DAILY, (Reported) Discontinued Reason: No Longer Taking Entered as Reported by: MALLORIE VALIENTE on 10/03/18846 Last Action: Discontinued Tolterodine Tartrate (Detrol LA) 2 Mg Cap, 2 MG PO HS, (Reported) Discontinued Reason: No Longer Taking Entered as Reported by: MALLORIE VALIENTE on 10/03/18846 Last Action: Discontinued Tramadol HCl (Tramadol HCl) 50 Mg Tablet, 50 MG PO Q6H PRN for PAIN-MODERATE Discontinued Reason: No Longer Taking Prescribed by: BRIGETTE COREAS on 10/19/18815 Last Action: Discontinued Triamcinolone Acet (Triamcinolone Acetonide 0.1% Cream) 15 Gm Cr, 15 GM TP BID Discontinued Reason: No Longer Taking Prescribed by: CAREY NOEL on 02/25/21 1501 Last Action: Discontinued [Lidocaine 4% Patch] 1 EA PATCH, 1 EA TOP DAILY Discontinued Reason: No Longer Taking Prescribed by: BRIGETTE COREAS on 10/19/18815 Last Action: Discontinued Physical Exam-Cardiology Physical Exam Vital Signs/I&O 11/27/21 11/27/21 11/27/21 11/27/21 08:18 12:45 12:45 12:59 Temp 36.3 Pulse 83 72 83 Resp 16 16 B/P (MAP) 148/89 (108) 177/69 Pulse Ox 96 98 96 O2 Delivery Room Air Room Air Room Air 11/27/21 11/27/21 11/27/21 11/27/21 13:00 14:00 15:00 16:00 Pulse 68 60 64 Resp 22 13 23 B/P (MAP) 148/86 141/64 149/89 Pulse Ox 99 96 97 O2 Delivery Room Air Room Air Room Air Room Air 11/27/21 11/27/21 11/27/21 16:00 17:00 18:00 Pulse 61 70 81 Resp 12 16 B/P (MAP) 144/84 135/71 159/86 Pulse Ox 96 98 97 O2 Delivery Room Air Room Air Room Air Capillary Refill : Less Than 3 Seconds Constitutional: other (dysphasic) HEENT: hearing is well preserved, oral hygience is good Neck: No carotid bruit Respiratory: No accessory muscle use, No respiratory distress; chest expansion is symmetric, chest is bilaterally symmetric, lungs clear to auscultation Cardiovascular: irregularly irregular; No JVD; S1 and S2 Gastrointestinal: No tender; soft, round, audible bowel sounds Extremities: no lower extremity edema bilateral Neurologic/Psychiatric: other (left sided upper and lower extremity hemiparesis) Skin: No rash on exposed areas, No ulcerations on exposed areas Data Review Labs Laboratory Tests 11/27/21 08:39: White Blood Count 7.7, Red Blood Count 4.80, Hemoglobin 12.9, Hematocrit 41, Mean Corpuscular Volume 85, Mean Corpuscular Hemoglobin 27, Mean Corpuscular Hemoglobin Concent 32, Red Cell Distribution Width 13.8, Platelet Count 362, Mean Platelet Volume 10.8, Immature Granulocyte % (Auto) 1, Neutrophils (%) (Auto) 74, Lymphocytes (%) (Auto) 12, Monocytes (%) (Auto) 9, Eosinophils (%) (Auto) 4, Basophils (%) (Auto) 0, Neutrophils # (Auto) 5.7, Lymphocytes # (Auto) 0.9L, Monocytes # (Auto) 0.7, Eosinophils # (Auto) 0.3, Basophils # (Auto) 0.0, Immature Granulocyte # (Auto) 0.0, Prothrombin Time 14.3, INR Comment 1.1, Activated Partial Thromboplast Time 31, D-Dimer 1.29H, Urine Color YELLOW, Urine Clarity CLEAR, Urine pH 6.5, Urine Specific [place] <=1.005, Urine Protein NEGATIVE, Urine Glucose (UA) NEGATIVE, Urine Ketones NEGATIVE, Urine Nitrite NEGATIVE, Urine Bilirubin NEGATIVE, Urine Urobilinogen 0.2, Urine Leukocyte Esterase NEGATIVE, Urine RBC (Auto) NEGATIVE, Urine RBC NONE, Urine WBC RARE, Urine Squamous Epithelial Cells RARE, Urine Crystals NONE, Urine Bacteria NEGATIVE, Urine Casts NONE, Urine Mucus NEGATIVE, Urine Culture Indicated NO, Sodium Level 138, Potassium Level 4.2, Chloride Level 104, Carbon Dioxide Level 25, Anion Gap 9, Blood Urea Nitrogen 22H, Creatinine 1.18, Estimat Glomerular Filtration Rate 46, BUN/Creatinine Ratio 19, Glucose Level 94, Calcium Level 9.9, Corrected Calcium 10.1, Total Bilirubin 0.6, Aspartate Amino Transf (AST/SGOT) 17, Alanine Aminotransferase (ALT/SGPT) 21, Alkaline Phosphatase 106, Troponin I < 0.028, Total Protein 6.8, Albumin 3.8 11/27/21 08:45: SARS-CoV-2 RNA (RT-PCR) Not Detected 11/27/21 08:50: Glucometer 96 11/27/21 10:22: Glucometer 89 11/27/21 17:24: Glucometer 90 A/P-Cardiology Assessment/Admission Diagnosis 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 This area of occlusion is of unknown age.There is moderate to severe stenosis involving the distal right P1 YARD LABOR SUPERVISOR and proximal left P2 YARD LABOR SUPERVISOR region. There is severe stenosis involving the paraclinoid and supraclinoid left ICA regions. per CTA on 11-27-21 - Management per stroke team (Dr Coreas) - Per the ED note of 11-27-21: Multiple discussions with [facility], initial discussion was at [phone] Platt who recommended CT angiography of the brain and cervical vessels. 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 She has no "large vessel occlusion" and therefore is not a candidate for intervention. Dr. Platt was made aware of t hese results at 11:15 AM. She recommends permissive hypertension, holding her blood pressure medications. Daily aspirin and a head MRI. She would need to be evaluated for rehab. A-fib with controlled - undetermined length of time - first dx on ECG of 11-27-21 at the [facility] ED - advise OAC with Eliquis if ok with Dr. Coreas Discussion and Recomendations Newly dx a-fib of undetermined length of time - advise OAC with Eliquis if ok with Dr. Coreas Carotid arterial dz - please seen note from [facility] stroke team above as per the ED note Echocardiogram Management of CVA by Dr Coreas Replace electrolytes as indicated and monitor labs We would like to thank Dr. Coreas for this consult Clinical Quality Measures Stroke: Date of last known well: Nov 27, 2021 Time of last known well: 00:30 Symptoms onset unknown: Yes LEONARD ALVAREZ MD FACP [facility] CCDS Nov 27, 2021 18:11
[2021-11-27] MEDS: DOCUSATE SODIUM 100 MG (COLACE) CAP PO SCH (21:25)
[2021-11-27] MEDS: SENNOSIDES 8.6 MG (SENOKOT) TAB PO SCH (21:25)
[2021-11-28 04:49] LABS: BASOPHILS % (AUTO) 0 % (0-10); EOSINOPHILS # (AUTO) 0.2 10^3/uL (0.0-0.3); EOSINOPHILS % (AUTO) 3 % (0-10); HEMATOCRIT 41 % (35-52); HEMOGLOBIN 12.8 g/dL (11.5-16.0); LYMPHOCYTES # (AUTO) 1.3 10^3/uL (1.0-4.0); LYMPHOCYTES % (AUTO) 18 % (12-44); MEAN CORPUSCULAR HEMOGLOBIN 26 pg (25-34); MEAN CORPUSCULAR HGB CONC 31 g/dL (32-36); MEAN CORPUSCULAR VOLUME 85 fL (80-99); MEAN PLATELET VOLUME 10.7 fL (9.0-12.2); MONOCYTES # (AUTO) 0.7 10^3/uL (0.0-1.0); MONOCYTES % (AUTO) 9 % (0-12); NEUTROPHILS # (AUTO) 4.9 10^3/uL (1.8-7.8); NEUTROPHILS % (AUTO) 69 % (42-75); PLATELET COUNT 329 10^3/uL (130-400); WHITE BLOOD COUNT 7.1 10^3/uL (4.3-11.0)
[2021-11-28 05:06] LABS: ALBUMIN 3.5 GM/DL (3.2-4.5)
[2021-11-28 05:08] LABS: CALCIUM 9.8 MG/DL (8.5-10.1)
[2021-11-28 05:09] LABS: TOTAL PROTEIN 6.2 GM/DL (6.4-8.2)
[2021-11-28 05:12] LABS: PHOSPHORUS 3.5 MG/DL (2.3-4.7)
[2021-11-28 05:13] LABS: CREATININE SERUM 0.99 MG/DL (0.60-1.30)
[2021-11-28 05:15] LABS: MAGNESIUM 2.1 MG/DL (1.6-2.4)
[2021-11-28] MEDS: MAGNESIUM 1 GM/100 ML IVPB 100 ML IV SCH ×2 (05:20→05:43)
[2021-11-28 05:29] LABS: POTASSIUM 3.8 MMOL/L (3.6-5.0)
[2021-11-28 05:33] LABS: BILIRUBIN,TOTAL 0.6 MG/DL (0.1-1.0)
[2021-11-28] MEDS: inSUlin ASPART (NovoLOG) 1 UNIT/0.01 ML (CHARGE PER UNIT) SQ SCH ×4 (05:43→21:17)
[2021-11-28] MEDS ORDERED: POTASSIUM CL 10MEQ/50ML IVPB 50 ML IV SCH (06:00)
[2021-11-28] MEDS ORDERED: KCL 20 MEQ TAB (K-DUR) PO SCH (06:00)
[2021-11-28] MEDS: NS IV 1000 ML 1,000 ML IV SCH (06:07)
--- NOTE | 2021-11-28 06:16 | Progress Note ---
Subjective Date Seen by a Provider: Nov 28, 2021 Time Seen by a Provider: 10:30 Subjective/Events-last exam Patient doing well Left sided neglect noted Expressive aphasia noted Left sided weakness 1/5 No pain reported Moore in place Eliquis tolerated Reviewed carotid USG and MRI and CTA Moving to 4th Confusion noted Review of Systems General: Fatigue, Malaise Neurological: Weakness, Confusion Objective Exam Last Set of Vital Signs Vital Signs Date Time Temp Pulse Resp B/P (MAP) Pulse Ox O2 Delivery O2 Flow Rate FiO2 11/28/21 06:00 73 13 142/98 98 Room Air 11/28/21 00:07 36.4 Capillary Refill : Less Than 3 Seconds I&O Intake and Output 11/28/21 00:00 Intake Total 250 ml Output Total 1600 ml Balance -1350 ml Intake Oral 250 ml Output Urine Total 1600 ml Daily Weight Change No General: Alert, Oriented X3, Cooperative, No Acute Distress, Other (subtle confusion) Lungs: Clear to Auscultation, Normal Air Movement Heart: Normal S1, Normal S2, No Murmurs, Other (IRR) Results Lab Laboratory Tests 11/27/21 08:39: White Blood Count 7.7, Red Blood Count 4.80, Hemoglobin 12.9, Hematocrit 41, Mean Corpuscular Volume 85, Mean Corpuscular Hemoglobin 27, Mean Corpuscular Hemoglobin Concent 32, Red Cell Distribution Width 13.8, Platelet Count 362, Mean Platelet Volume 10.8, Immature Granulocyte % (Auto) 1, Neutrophils (%) (Auto) 74, Lymphocytes (%) (Auto) 12, Monocytes (%) (Auto) 9, Eosinophils (%) (Auto) 4, Basophils (%) (Auto) 0, Neutrophils # (Auto) 5.7, Lymphocytes # (Auto) 0.9L, Monocytes # (Auto) 0.7, Eosinophils # (Auto) 0.3, Basophils # (Auto) 0.0, Immature Granulocyte # (Auto) 0.0, Prothrombin Time 14.3, INR Comment 1.1, Activated Partial Thromboplast Time 31, D-Dimer 1.29H, Urine Color YELLOW, Urine Clarity CLEAR, Urine pH 6.5, Urine Specific [place] <=1.005, Urine Protein NEGATIVE, Urine Glucose (UA) NEGATIVE, Urine Ketones NEGATIVE, Urine Nitrite NEGATIVE, Urine Bilirubin NEGATIVE, Urine Urobilinogen 0.2, Urine Leukocyte Esterase NEGATIVE, Urine RBC (Auto) NEGATIVE, Urine RBC NONE, Urine WBC RARE, Urine Squamous Epithelial Cells RARE, Urine Crystals NONE, Urine Bacteria NEGATIVE, Urine Casts NONE, Urine Mucus NEGATIVE, Urine Culture Indicated NO, Sodium Level 138, Potassium Level 4.2, Chloride Level 104, Carbon Dioxide Level 25, Anion Gap 9, Blood Urea Nitrogen 22H, Creatinine 1.18, Estimat Glomerular Filtration Rate 46, BUN/Creatinine Ratio 19, Glucose Level 94, Calcium Level 9.9, Corrected Calcium 10.1, Total Bilirubin 0.6, Aspartate Amino Transf (AST/SGOT) 17, Alanine Aminotransferase (ALT/SGPT) 21, Alkaline Phosphatase 106, Troponin I < 0.028, Total Protein 6.8, Albumin 3.8 11/27/21 08:45: SARS-CoV-2 RNA (RT-PCR) Not Detected 11/27/21 08:50: Glucometer 96 11/27/21 10:22: Glucometer 89 11/27/21 17:24: Glucometer 90 11/28/21 04:08: White Blood Count 7.1, Red Blood Count 4.88, Hemoglobin 12.8, Hematocrit 41, Mean Corpuscular Volume 85, Mean Corpuscular Hemoglobin 26, Mean Corpuscular Hemoglobin Concent 31L, Red Cell Distribution Width 13.8, Platelet Count 329, Mean Platelet Volume 10.7, Immature Granulocyte % (Auto) 0, Neutrophils (%) (Auto) 69, Lymphocytes (%) (Auto) 18, Monocytes (%) (Auto) 9, Eosinophils (%) (Auto) 3, Basophils (%) (Auto) 0, Neutrophils # (Auto) 4.9, Lymphocytes # (Auto) 1.3, Monocytes # (Auto) 0.7, Eosinophils # (Auto) 0.2, Basophils # (Auto) 0.0, Immature Granulocyte # (Auto) 0.0, Sodium Level 141, Potassium Level 3.8, Chloride Level 108H, Carbon Dioxide Level 21, Anion Gap 12, Blood Urea Nitrogen 16, Creatinine 0.99, Estimat Glomerular Filtration Rate 57, BUN/Creatinine Ratio 16, Glucose Level 84, Calcium Level 9.8, Corrected Calcium 10.2H, Phosphorus Level 3.5, Magnesium Level 2.1, Total Bilirubin 0.6, Aspartate Amino Transf (AST/SGOT) 19, Alanine Aminotransferase (ALT/SGPT) 22, Alkaline Phosphatase 99, Total Protein 6.2L, Albumin 3.5, Triglycerides Level 83, Cholesterol Level 154, LDL Cholesterol Direct 101, VLDL Cholesterol 17, HDL Cholesterol 43 Assessment/Plan Assessment/Plan Assess & Plan/Chief Complaint Assessment: CVA subacute not a tPa candidate Left sided weakness Confusion Expressive aphasia HTN HLP Chronic pain Confusion Plan: Cardiology consult [facility]AC ICU Lipid panel Carotid MRI 11/28/21: Move to 4th floor Diagnosis/Problems Diagnosis/Problems (1) Cerebrovascular accident due to cerebral artery occlusion Status: Acute (2) Atrial fibrillation Status: Acute Qualifiers: Qualified Codes: I48.91 - Unspecified atrial fibrillation (3) Hypertension Status: Chronic (4) Osteoarthritis Status: Chronic (5) Insomnia Status: Chronic Clinical Quality Measures Stroke: Date of last known well: Nov 27, 2021 Time of last known well: 00:30 Symptoms onset unknown: Yes LUIS FELIPE COREAS DO Nov 28, 2021 06:16
[2021-11-28] MEDS: DOCUSATE SODIUM 100 MG (COLACE) CAP PO SCH ×2 (07:38→21:14)
[2021-11-28] MEDS: SENNOSIDES 8.6 MG (SENOKOT) TAB PO SCH ×2 (07:39→21:14)
[2021-11-28] MEDS: ASPIRIN 325 MG (5 GR) TABLET PO SCH (09:14)
--- NOTE | 2021-11-28 09:20 | Tele-ICU Progress Note ---
Sepsis Event Evaluation Height, Weight, BMI Height: 5'5.00" Weight: 155lbs. 6.0oz. [id number]; 20.47 BMI Method:Stated Exam Exam Patient acknowledged, consented, and participated in this virtual visit which was conducted using real time audio/video Vital Signs Date Time Temp Pulse Resp B/P (MAP) Pulse Ox O2 Delivery O2 Flow Rate FiO2 11/28/21 08:00 36.4 11/28/21 08:00 84 14 97 Room Air 11/28/21 07:00 75 11/28/21 07:00 76 13 154/65 94 Room Air 11/28/21 06:00 73 13 142/98 98 Room Air 11/28/21 05:00 69 13 137/84 98 Room Air 11/28/21 04:00 77 16 150/74 96 Room Air 11/28/21 04:00 Room Air 11/28/21 03:00 71 16 143/65 97 Room Air 11/28/21 02:00 72 16 123/72 97 Room Air 11/28/21 01:00 84 16 145/76 97 Room Air 11/28/21 01:00 83 11/28/21 00:07 36.4 11/28/21 00:00 74 20 136/71 96 Room Air 11/27/21 23:59 Room Air 11/27/21 23:00 81 16 127/68 98 Room Air 11/27/21 22:00 70 16 139/81 97 Room Air 11/27/21 21:00 71 18 157/81 97 Room Air 11/27/21 20:00 82 138/69 99 Room Air 11/27/21 20:00 Room Air 11/27/21 20:00 36.3 11/27/21 19:00 73 11/27/21 19:00 69 126/72 97 Room Air 11/27/21 18:00 81 159/86 97 Room Air 11/27/21 17:00 70 16 135/71 98 Room Air 11/27/21 16:00 61 12 144/84 96 Room Air 11/27/21 16:00 Room Air 11/27/21 15:00 64 23 149/89 97 Room Air 11/27/21 14:00 60 13 141/64 96 Room Air 11/27/21 13:00 68 22 148/86 99 Room Air 11/27/21 12:59 83 11/27/21 12:45 96 Room Air 11/27/21 12:45 72 16 177/69 98 Room Air I & O 11/28/21 07:00 Intake Total 250 ml Output Total 2250 ml Balance -2000 ml Height & Weight Height: 5'5.00" Weight: 155lbs. 6.0oz. 70.176503pq; 20.47 BMI Method:Stated General Appearance: WD/WN, Anxious, Chronically ill, Mild Distress HEENT: PERRL/EOMI, Normal ENT Inspection, Pharynx Normal Neck: Full Range of Motion, Normal Inspection, Non Tender, Supple, Carotid Bruit Respiratory: Chest Non Tender, Lungs Clear, Normal Breath Sounds, No Accessory Muscle Use, No Respiratory Distress Cardiovascular: No Edema, No Gallop, No JVD, No Murmur, Normal Peripheral Pulses, Irregularly Irregular Capillary Refill: Less Than 3 Seconds Peripheral Pulses: 2+ Radial Pulses (R), 2+ Radial Pulses (L) Gastrointestinal: normal bowel sounds, non tender, soft Extremity: Normal Capillary Refill, Normal Inspection, Normal Range of Motion, Non Tender, No Calf Tenderness, No Pedal Edema Neurologic/Psychiatric: Alert, Normal Mood/Affect, fruit stuffer II-XII Norm as Tested, Depressed Affect, Disoriented, Facial Droop, Motor Weakness (left 1/5 upper and lower) Skin: Normal Color, Warm/Dry Lymphatic: No Adenopathy Results Lab Laboratory Tests 11/27/21 08:39 11/28/21 04:08 REJI NORRIS MD Nov 28, 2021 09:20
--- NOTE | 2021-11-28 09:33 | Physical Therapy Daily Note ---
PT Daily Note-Current Subjective Patient in bed. Confused. Mental Status Patient Orientation: Confused Attachments: Moore Catheter, IV Transfers SCALE: Activities may be completed with or without assistive devices. 5-Qpwknpkjkn-vwkdmru completes the activity by him/herself with no assistance from a helper. 5-Set-up or Clean-up Assistance-helper sets up or cleans up; patient completes a ctivity. [place] assists only prior to or following the activity. 4-Supervision or Touching Assistance-helper provides verbal cues and/or touching/steadying and/or contact guard assistance as patient completes activity. Assistance may be provided throughout the activity or intermittently. 3-Partial/Moderate Assistance-helper does LESS THAN HALF the effort. [place] lifts, holds or supports trunk or limbs, but provides less than half the effort. 2-Substantial/Maximal Assistance-helper does MORE THAN HALF the effort. [place] lifts or holds trunk or limbs and provides more than half the effort. 8-Xwnmsavov-rvawoq does ALL the effort. Patient does none of the effort to complete the activity. Or, the assistance of 2 or more helpers is required for the patient to complete the activity. If activity was not attempted, code reason: 7-Patient Refused. 9-Not Applicable-not attempted and the patient did not perform the activity before the current illness, exacerbation or injury. 10-Not Attempted due to Environmental Limitations-(lack of equipment, weather restraints, etc.). 88-Not Attempted due to Medical Conditions or Safety Concerns. Lying to Sitting/Side of Bed(Q: 2 Sit to Stand (QC): 2 Chair/Puu-pk-Uejnt Xfer(QC): 2 Toilet Transfer (QC): 2 Gait Training Does the Patient Walk?: No and Walking Goal IS indicated Exercises Supine Ex: Ankle pumps, Heel Slides, Straight leg raise Supine Reps: 12 (AAROM) Seated Therapy Exercises: Long arc quads Seated Reps: 12 Assessment Patient has more active movement left LE and UE on this date. Patient confused repeating questions. Incontinent BM requiring dependent assist to cleanse and change. Patient tolerated and is up in recliner with needs met. PT Half-Way Goals Half-Way Goals PT Quarry Worker Goals Time Frame: Dec 04, 2021 Roll Left & Right (QC): 4 Sit to Lying (QC): 3 Lying-Sitting on Side/Bed(QC): 3 Sit to Stand (QC): 3 Chair/Ezo-pr-Yequs Xfer(QC): 3 PT Plan Treatment/Plan Treatment Plan: Continue Plan of Care Treatment Plan: Bed Mobility, Education, Functional Activity Anitra, Functional Strength, Gait, Safety, Therapeutic Exercise, Transfers Treatment Duration: Dec 04, 2021 Frequency: 6 times per week Estimated Hrs Per Day: .25 hour per day Patient and/or Family Agrees t: Yes Time/GCodes Time In: 710 Time Out: 734 Total Billed Treatment Time: 24 Total Billed Treatment 1 visit EX 10 min FA 14 min KELLEN BRANNON PT Nov 28, 2021 09:33
--- NOTE | 2021-11-28 10:44 | Tele-ICU Progress Note ---
Subjective Date Seen by a Provider: Nov 28, 2021 Time Seen by a Provider: 10:38 Subjective/Events-last exam Available chart/vitals/labs/images reviewed. Video assessment done using telemetry ICU camera, rest of exam as per RN. Discussion with the RN, exam as per RN. Hospital course Today she is awake alert and following commands. Her atrial fibrillation rate is controlled. Her left side power has not changed. She passed a swallow evaluation and started on apixaban and a aspirin full dose. Hemodynamically stable Sepsis Event Evaluation Height, Weight, BMI Height: 5'5.00" Weight: 155lbs. 6.0oz. 70.464658pr; 20.47 BMI Method:Stated Exam Exam Patient acknowledged, consented, and participated in this virtual visit which was conducted using real time audio/video Vital Signs Date Time Temp Pulse Resp B/P (MAP) Pulse Ox O2 Delivery O2 Flow Rate FiO2 11/28/21 10:00 92 16 148/89 94 Room Air 11/28/21 09:00 80 17 121/66 95 Room Air 11/28/21 08:00 36.4 11/28/21 08:00 84 14 97 Room Air 11/28/21 08:00 Room Air 11/28/21 07:00 75 11/28/21 07:00 76 13 154/65 94 Room Air 11/28/21 06:00 73 13 142/98 98 Room Air 11/28/21 05:00 69 13 137/84 98 Room Air 11/28/21 04:00 77 16 150/74 96 Room Air 11/28/21 04:00 Room Air 11/28/21 03:00 71 16 143/65 97 Room Air 11/28/21 02:00 72 16 123/72 97 Room Air 11/28/21 01:00 84 16 145/76 97 Room Air 11/28/21 01:00 83 11/28/21 00:07 36.4 11/28/21 00:00 74 20 136/71 96 Room Air 11/27/21 23:59 Room Air 11/27/21 23:00 81 16 127/68 98 Room Air 11/27/21 22:00 70 16 139/81 97 Room Air 11/27/21 21:00 71 18 157/81 97 Room Air 11/27/21 20:00 82 138/69 99 Room Air 11/27/21 20:00 Room Air 11/27/21 20:00 36.3 11/27/21 19:00 73 11/27/21 19:00 69 126/72 97 Room Air 11/27/21 18:00 81 159/86 97 Room Air 11/27/21 17:00 70 16 135/71 98 Room Air 11/27/21 16:00 61 12 144/84 96 Room Air 11/27/21 16:00 Room Air 11/27/21 15:00 64 23 149/89 97 Room Air 11/27/21 14:00 60 13 141/64 96 Room Air 11/27/21 13:00 68 22 148/86 99 Room Air 11/27/21 12:59 83 11/27/21 12:45 96 Room Air 11/27/21 12:45 72 16 177/69 98 Room Air I & O 11/28/21 07:00 Intake Total 250 ml Output Total 2250 ml Balance -2000 ml Height & Weight Height: 5'5.00" Weight: 155lbs. 6.0oz. 70.124197hc; 20.47 BMI Method:Stated General Appearance: WD/WN, Anxious, Chronically ill, Mild Distress HEENT: PERRL/EOMI, Normal ENT Inspection, Pharynx Normal Neck: Full Range of Motion, Normal Inspection, Non Tender, Supple, Carotid Bruit Respiratory: Chest Non Tender, Lungs Clear, Normal Breath Sounds, No Accessory Muscle Use, No Respiratory Distress Cardiovascular: No Edema, No Gallop, No JVD, No Murmur, Normal Peripheral Pulses, Irregularly Irregular Capillary Refill: Less Than 3 Seconds Peripheral Pulses: 2+ Radial Pulses (R), 2+ Radial Pulses (L) Gastrointestinal: normal bowel sounds, non tender, soft Extremity: Normal Capillary Refill, Normal Inspection, Normal Range of Motion, Non Tender, No Calf Tenderness, No Pedal Edema Neurologic/Psychiatric: Alert, Normal 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 Right ICA stroke with Left hemiplegia. 2.Atrial fibrillation of uncertain duration 3. 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 keep SBP between 120-140 2. aspirin 325 mg poqd 3. Anticoagulation for afib with apixaban 4. Get Echocardiogram. 5. PT/OT/ST 6. LDL goal <70 7. HbA1c goal <6.0 8.Cardiology consultation 9. ok to transfer patient to step down unit from critical care point of view. Critical Care: Critically Ill Patient Time spent with patient (mins): 15 REJI NORRIS MD Nov 28, 2021 10:44
[2021-11-28] MEDS ORDERED: BACLOFEN 10 MG (LIORESAL) TAB PO PRN (12:30)
[2021-11-28] MEDS ORDERED: APIXABAN 5 MG (ELIQUIS) TABLET PO SCH (14:04)
[2021-11-28] MEDS: APIXABAN 2.5 MG (ELIQUIS) TABLET PO SCH ×2 (14:16→21:15)
--- NOTE | 2021-11-28 14:27 | Progress Note - Cardiology ---
Cardiology SOAP Progress Note Subjective: No cp or palp or syncope or shortness of breath No n/v/d L-sided weakness Objective: I&O/Vital Signs 11/28/21 11/28/21 11/28/21 11/28/21 03:00 04:00 04:00 05:00 Pulse 71 77 69 Resp 16 16 13 B/P (MAP) 143/65 150/74 137/84 Pulse Ox 97 96 98 O2 Delivery Room Air Room Air Room Air Room Air 11/28/21 11/28/21 11/28/21 11/28/21 06:00 07:00 07:00 08:00 Pulse 73 76 75 Resp 13 13 B/P (MAP) 142/98 154/65 Pulse Ox 98 94 O2 Delivery Room Air Room Air Room Air 11/28/21 11/28/21 11/28/21 11/28/21 08:00 08:00 09:00 10:00 Temp 36.4 Pulse 84 80 92 Resp 14 17 16 B/P (MAP) 121/66 148/89 Pulse Ox 97 95 94 O2 Delivery Room Air Room Air Room Air 11/28/21 11/28/21 11/28/21 11/28/21 11:00 11:04 12:00 13:00 Pulse 74 80 90 Resp 19 25 B/P (MAP) 139/76 154/84 Pulse Ox 96 96 O2 Delivery Room Air Room Air Room Air 11/28/21 00:00 Intake Total 250 ml Output Total 1600 ml Balance -1350 ml Weight (Pounds): 155 Weight (Ounces): 6.0 Weight (Calculated Kilograms): 70.863209 Constitutional: AAO x 3, other (speech has improved) Respiratory: No accessory muscle use, No respiratory distress; chest expansion is symmetric, chest is bilaterally symmetric, lungs clear to auscultation Cardiovascular: irregularly irregular; No JVD; S1 and S2 Gastrointestional: No tender; soft, round, audible bowel sounds Extremities: no lower extremity edema bilateral Neurologic/Psychiatric: other (left-sided upper and lower extremity hemipa resis) Skin: No rash on exposed areas, No ulcerations on exposed areas Results/Procedures: Labs Laboratory Tests 11/27/21 17:24: Glucometer 90 11/28/21 04:08: White Blood Count 7.1, Red Blood Count 4.88, Hemoglobin 12.8, Hematocrit 41, Mean Corpuscular Volume 85, Mean Corpuscular Hemoglobin 26, Mean Corpuscular H emoglobin Concent 31L, Red Cell Distribution Width 13.8, Platelet Count 329, Mean Platelet Volume 10.7, Immature Granulocyte % (Auto) 0, Neutrophils (%) (Auto) 69, Lymphocytes (%) (Auto) 18, Monocytes (%) (Auto) 9, Eosinophils (%) (Auto) 3, Basophils (%) (Auto) 0, Neutrophils # (Auto) 4.9, Lymphocytes # (Auto) 1.3, Monocytes # (Auto) 0.7, Eosinophils # (Auto) 0.2, Basophils # (Auto) 0.0, Immature Granulocyte # (Auto) 0.0, Sodium Level 141, Potassium Level 3.8, Chloride Level 108H, Carbon Dioxide Level 21, Anion Gap 12, Blood Urea Nitrogen 16, Creatinine 0.99, Estimat Glomerular Filtration Rate 57, BUN/Creatinine Ratio 16, Glucose Level 84, Calcium Level 9.8, Corrected Calcium 10.2H, Phosphorus Level 3.5, Magnesium Level 2.1, Total Bilirubin 0.6, Aspartate Amino Transf (AST/SGOT) 19, Alanine Aminotransferase (ALT/SGPT) 22, Alkaline Phosphatase 99, Total Protein 6.2L, Albumin 3.5, Triglycerides Level 83, Cholesterol Level 154, LDL Cholesterol Direct 101, VLDL Cholesterol 17, HDL Cholesterol 43 11/28/21 11:54: Glucometer 97 Laboratory Tests 11/27/21 08:39 11/28/21 04:08 A/P: Assessment: CVA with left sided upper and lower extremity hemiparesis and confus ion/dysphasia - There is 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 This area of occlusion is of unknown age.There is moderate to severe stenosis involving the distal right P1 CLERK CHECKER and proximal left P2 CLERK CHECKER region. There is severe stenosis involving the paraclinoid and supraclinoid left ICA regions. per CTA on 11-27-21 - Management per stroke team (Dr Lopez) - Per the ED note of 11-27-21: Multiple discussions with [facility], initial discussion was at [phone] Platt who re commended CT angiography of the brain and cervical vessels. 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 She has no "large vessel occlusion" and therefore is not a candidate for intervention. Dr. Platt was made aware of these results at 11:15 AM. She recommends permissive hypertension, holding her blood pressure medications. Daily aspirin and a head MRI. She would need to be evaluated for rehab. A-fib with controlled vent response - undetermined length of time - first dx on ECG of 11-27-21 at the [facility] ED - advise OAC with Eliquis if ok with Dr. Lopez - Echo on 11/27/21: LVEF 60-65%, unspecified diastolic dysfunction, mod to sev enlargement of LA, mild CHARLEY, PASP 30-35 mmHg Plan: OAC with Eliquis if ok with Dr. Lopez who is managing patient's CVA Carotid arterial dz - please seen note from [facility] stroke team above as per the ED note Replace electrolytes as indicated and monitor labs Clinical Quality Measures Stroke: Date of last known well: Nov 27, 2021 Time of last known well: 00:30 Symptoms onset unknown: Yes LEONARD ALVAREZ MD FACP [facility] CCDS Nov 28, 2021 14:27
[2021-11-28 15:55] VITALS: BP 159/76
[2021-11-28] MEDS: ALPRAZolam 0.25 MG (XANAX) TAB PO PRN ×2 (16:54→21:15)
[2021-11-28 20:00] VITALS: BP 156/89
[2021-11-28] MEDS: ZOLPIDEM 5 MG (AMBIEN) TAB PO SCH (21:15)
[2021-11-29] VITALS (7 sets, daily range): BP systolic 144–177; BP diastolic 79–93
[2021-11-29] MEDS: inSUlin ASPART (NovoLOG) 1 UNIT/0.01 ML (CHARGE PER UNIT) SQ SCH ×4 (06:04→21:00)
--- NOTE | 2021-11-29 06:12 | PM&R Progress Note ---
Subjective HPI/CC On Admission Date Seen by Provider: Nov 29, 2021 Time Seen by Provider: 10:30 CC: CVA with left sided weakness HPI: This is a clinic pt of mine with a past medical history of hypertension. She presented to the ER after altered mental status. She was found at home. EMS brought her in. She was flaccid on the left side. New onset afib rate controlled on telemetry. She was placed on Eliquis 5 mg BID. MRI will be obtained. She will be an ICU admission. Stroke protocol with [facility] was communicated with. All r ecommendations were initiated per stroke protocol. Subjective/Events-last exam Patient sleepy just left Will attempt to call daughter No pain reported No falls Confused Repeat self Review of Systems General: Fatigue, Malaise Objective Exam Vital Signs Vital Signs Date Time Temp Pulse Resp B/P (MAP) Pulse Ox O2 Delivery O2 Flow Rate FiO2 11/29/21 13:00 91 11/29/21 11:41 36.4 17 176/79 (111) 96 Room Air 11/29/21 11:15 0.00 Capillary Refill : Less Than 3 Seconds General Appearance: WD/WN, Anxious, Chronically ill, Mild Distress HEENT: PERRL/EOMI, Normal ENT Inspection, Pharynx Normal Neck: Full Range of Motion, Normal Inspection, Non Tender, Supple, Carotid Bruit Respiratory: Chest Non Tender, Lungs Clear, Normal Breath Sounds, No Accessory Muscle Use, No Respiratory Distress Cardiovascular: No Edema, No Gallop, No JVD, No Murmur, Normal Peripheral Pulses, Irregularly Irregular Gastrointestinal: Normal Bowel Sounds, No Organomegaly, No Pulsatile Mass, Non Tender, Soft Back: Normal Inspection, No CVA Tenderness, No Vertebral Tenderness Extremity: Normal Capillary Refill, Normal Inspection, Normal Range of Motion, Non Tender, No Calf Tenderness, No Pedal Edema Neurologic/Psychiatric: Alert, Normal 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 [facility] Transfers Therapy Code Descriptions/Definitions Functional [place]man Measure: 0=Not Assessed/NA 4=Minimal Assistance 1=Total Assistance 5=Supervision or Setup 2=Maximal Assistance 6=Modified H[place]man 3=Moderate Assistance 7=Complete IndependenceSCALE: Activities may be completed with or without assistive devices. 3-Xhzshhqkkd-yzcncjk completes the activity by him/herself with no assistance from a helper. 5-Set-up or Clean-up Assistance-helper sets up or cleans up; patient completes activity. [place] assists only prior to or following the activity. 4-Supervision or Touching Assistance-helper provides verbal cues and/or touching/steadying and/or contact guard assistance as patient completes activity. Assistance may be provided throughout the activity or intermittently. 3-Partial/Moderate Assistance-helper does LESS THAN HALF the effort. [place]ee lifts, holds or supports trunk or limbs, but provides less than half the effort. 2-Substantial/Maximal Assistance-helper does MORE THAN HALF the effort. [place] lifts or holds trunk or limbs and provides more than half the effort. 3-Ciauyxqch-qmesos does ALL the effort. Patient does none of the effort to complete the activity. Or, the assistance of 2 or more helpers is required for the patient to complete the activity. If activity was not attempted, code reason: 7-Patient Refused. 9-Not Applicable-not attempted and the patient did not perform the activity before the current illness, exacerbation or injury. 10-Not Attempted due to Environmental Limitations-(lack of equipment, weather restraints, etc.). 88-Not Attempted due to Medical Conditions or Safety Concerns. Roll Left to Right (QC): 3 Sit to Lying (QC): 2 Sit to Stand (QC): 2 Chair/Cjh-bf-Nlwjq Xfer(QC): 2 Gait Training Does the Patient Walk?: No and Walking Goal IS indicated ADL-Treatment Eating (QC): 88 Oral Hygiene (QC): 88 Shower/Bathe Self (QC): 88 Lower Body Dressing (QC): 88 On/Off Footwear (QC): 1 Toileting Hygiene (QC): 1 Assessment/Plan Assessment and Plan (1) Cerebrovascular accident due to cerebral artery occlusion Status: Acute (2) Atrial fibrillation Status: Acute Qualifiers: Atrial fibrillation type: unspecified Qualified Codes: I48.91 - Unspecified atrial fibrillation (3) Hypertension Status: Chronic (4) Osteoarthritis Status: Chronic (5) Insomnia Status: Chronic Critical Care Critical Care: Critically Ill Patient LUIS FELIPE COREAS DO Nov 29, 2021 06:12
[2021-11-29 06:36] LABS: BASOPHILS % (AUTO) 0 % (0-10); EOSINOPHILS # (AUTO) 0.3 10^3/uL (0.0-0.3); EOSINOPHILS % (AUTO) 5 % (0-10); HEMATOCRIT 43 % (35-52); HEMOGLOBIN 13.3 g/dL (11.5-16.0); LYMPHOCYTES % (AUTO) 15 % (12-44); MEAN CORPUSCULAR HEMOGLOBIN 27 pg (25-34); MEAN CORPUSCULAR HGB CONC 31 g/dL (32-36); MEAN CORPUSCULAR VOLUME 86 fL (80-99); MEAN PLATELET VOLUME 10.9 fL (9.0-12.2); MONOCYTES # (AUTO) 0.5 10^3/uL (0.0-1.0); MONOCYTES % (AUTO) 8 % (0-12); NEUTROPHILS # (AUTO) 4.9 10^3/uL (1.8-7.8); NEUTROPHILS % (AUTO) 72 % (42-75); PLATELET COUNT 339 10^3/uL (130-400); WHITE BLOOD COUNT 6.8 10^3/uL (4.3-11.0)
[2021-11-29 06:49] LABS: ALBUMIN 3.5 GM/DL (3.2-4.5); POTASSIUM 4.2 MMOL/L (3.6-5.0)
[2021-11-29 06:51] LABS: CALCIUM 9.8 MG/DL (8.5-10.1)
[2021-11-29 06:52] LABS: TOTAL PROTEIN 6.5 GM/DL (6.4-8.2)
[2021-11-29 06:53] LABS: BILIRUBIN,TOTAL 0.7 MG/DL (0.1-1.0)
[2021-11-29 06:55] LABS: CREATININE SERUM 1.08 MG/DL (0.60-1.30)
[2021-11-29 06:58] LABS: MAGNESIUM 2.2 MG/DL (1.6-2.4)
[2021-11-29] MEDS: SENNOSIDES 8.6 MG (SENOKOT) TAB PO SCH ×2 (09:17→21:05)
[2021-11-29] MEDS: DOCUSATE SODIUM 100 MG (COLACE) CAP PO SCH ×2 (09:17→21:05)
[2021-11-29] MEDS: APIXABAN 2.5 MG (ELIQUIS) TABLET PO SCH ×2 (09:17→21:05)
[2021-11-29] MEDS: ASPIRIN 325 MG (5 GR) TABLET PO SCH (09:17)
[2021-11-29] MEDS: ALPRAZolam 0.25 MG (XANAX) TAB PO PRN (12:54)
[2021-11-29] MEDS ORDERED: amLODIPine 2.5MG (NORVASC) TAB PO ONE (13:15)
--- NOTE | 2021-11-29 13:15 | Progress Note - Cardiology ---
Cardiology SOAP Progress Note Subjective: Mild to mod, intermittent dizziness No cp or palp or syncope or shortness of breath Gen weakness and malaise L-sided weakness presists No n/v/d Objective: I&O/Vital Signs 11/29/21 11/29/21 11/29/21 11/29/21 04:14 07:00 07:44 09:08 Temp 36.6 36.1 Pulse 78 86 84 Resp 16 17 B/P (MAP) 154/91 (112) 177/93 (121) Pulse Ox 96 96 96 O2 Delivery Room Air Room Air Room Air O2 Flow Rate 0.00 11/29/21 11/29/21 11:15 11:41 Temp 36.4 Pulse 84 Resp 17 B/P (MAP) 176/79 (111) Pulse Ox 96 96 O2 Delivery Room Air Room Air O2 Flow Rate 0.00 11/29/21 00:00 Intake Total 1200 ml Output Total 950 ml Balance 250 ml Weight (Pounds): 155 Weight (Ounces): 6.0 Weight (Calculated Kilograms): 70.069467 Constitutional: AAO x 3, other (speech has improved) Respiratory: No accessory muscle use, No respiratory distress; chest expansion is symmetric, chest is bilaterally symmetric, lungs clear to auscultation Cardiovascular: irregularly irregular; No JVD; S1 and S2 Gastrointestional: No tender; soft, round, audible bowel sounds Extremities: no lower extremity edema bilateral Neurologic/Psychiatric: other (left-sided upper and lower extremity hemiparesis) Skin: No rash on exposed areas, No ulcerations on exposed areas Results/Procedures: Labs Laboratory Tests 11/28/21 16:15: Glucometer 86 11/28/21 20:12: Glucometer 99 11/29/21 05:07: Glucometer 78 11/29/21 06:01: White Blood Count 6.8, Red Blood Count 4.97, Hemoglobin 13.3, Hematocrit 43, Mean Corpuscular Volume 86, Mean Corpuscular Hemoglobin 27, Mean Corpuscular Hemoglobin Concent 31L, Red Cell Distribution Width 13.9, Platelet Count 339, Mean Platelet Volume 10.9, Immature Granulocyte % (Auto) 0, Neutrophils (%) (Auto) 72, Lymphocytes (%) (Auto) 15, Monocytes (%) (Auto) 8, Eosinophils (%) (Auto) 5, Basophils (%) (Auto) 0, Neutrophils # (Auto) 4.9, Lymphocytes # (Auto) 1.0, Monocytes # (Auto) 0.5, Eosinophils # (Auto) 0.3, Basophils # (Auto) 0.0, Immature Granulocyte # (Auto) 0.0, Sodium Level 142, Potassium Level 4.2, Chloride Level 110H, Carbon Dioxide Level 22, Anion Gap 10, Blood Urea Nitrogen 18, Creatinine 1.08, Estimat Glomerular Filtration Rate 51, BUN/Creatinine Ratio 17, Glucose Level 83, Calcium Level 9.8, Corrected Calcium 10.2H, Magnesium Level 2.2, Total Bilirubin 0.7, Aspartate Amino Transf (AST/SGOT) 21, Alanine Aminotransferase (ALT/SGPT) 21, Alkaline Phosphatase 100, Total Protein 6.5, Albumin 3.5 11/29/21 10:42: Glucometer 133H Microbiology 11/27/21 MRSA Screen - Preliminary, Resulted Laboratory Tests 11/28/21 04:08 11/29/21 06:01 A/P: Assessment: 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 This area of occlusion is of unknown age.There is moderate to severe stenosis involving the distal right P1 SQUASH CENTRE MANAGER and proximal left P2 SQUASH CENTRE MANAGER region. There is severe stenosis involving the paraclinoid and supraclinoid left ICA regions. per CTA on 11-27-21 - Management per stroke team (Dr Lopez) - Per the ED note of 11-27-21: Multiple discussions with [facility], initial discussion was at [phone] Platt who recommended CT angiography of the brain and cervical vessels. 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 She has no "large vessel occlusion" and therefore is not a candidate for intervention. Dr. Platt was made aware of these results at 11:15 AM. She recommends permissive hypertension, holding her blood pressure medications. Daily aspirin and a head MRI. She would need to be evaluated for rehab. A-fib with controlled vent response - undetermined length of time - first dx on ECG of 11-27-21 at the [facility] ED - advise OAC with Eliquis if ok with Dr. Lopez - Echo on 11/27/21: LVEF 60-65%, unspecified diastolic dysfunction, mod to sev enlargement of LA, mild CHARLEY, PASP 30-35 mmHg Significant hypertension Plan: * Multiple issues addressed * BP is considerably high. Start low-amlodipine if approved by Dr Lopez * Avoid beta-azar and/or diltiazem because vent response is not rapid and we wish to avoid bradycardia * For stroke prophylaxis we recommend Eliquis 5 mg po bid if approved by Dr Lopez * Carotid arterial dz - please seen note from [facility] stroke team above as per the ED note * Replace electrolytes as indicated and monitor labs Clinical Quality Measures Stroke: Date of last known well: Nov 28, 2021 Time of last known well: 00:30 Symptoms onset unknown: Yes LEONARD ALVAREZ MD FACP [facility]S Nov 29, 2021 13:15
--- NOTE | 2021-11-29 16:01 | Progress Note ---
Subjective Date Seen by a Provider: Nov 29, 2021 Time Seen by a Provider: 11:00 Subjective/Events-last exam Patient asleep just left PT OT will assess for IRF tomorrow Confused most of the time and repeats self Meds reviewed BM+ Moore still in place Review of Systems Neurological: Weakness, Incoordination Objective Exam Last Set of Vital Signs Vital Signs Date Time Temp Pulse Resp B/P (MAP) Pulse Ox O2 Delivery O2 Flow Rate FiO2 11/29/21 13:00 91 11/29/21 11:41 36.4 17 176/79 (111) 96 Room Air 11/29/21 11:15 0.00 Capillary Refill : Less Than 3 Seconds I&O Intake and Output 11/28/21 23:59 Intake Total 1450 ml Output Total 2000 ml Balance -550 ml Intake Oral 550 ml IV Total 900 ml Output Urine Total 2000 ml # Bowel Movements 2 General: Alert, Cooperative, No Acute Distress, Other (confused) Lungs: Clear to Auscultation Heart: Regular Rate Results Lab Laboratory Tests 11/28/21 16:15: Glucometer 86 11/28/21 20:12: Glucometer 99 11/29/21 05:07: Glucometer 78 11/29/21 06:01: White Blood Count 6.8, Red Blood Count 4.97, Hemoglobin 13.3, Hematocrit 43, Mean Corpuscular Volume 86, Mean Corpuscular Hemoglobin 27, Mean Corpuscular Hemoglobin Concent 31L, Red Cell Distribution Width 13.9, Platelet Count 339, Mean Platelet Volume 10.9, Immature Granulocyte % (Auto) 0, Neutrophils (%) (Auto) 72, Lymphocytes (%) (Auto) 15, Monocytes (%) (Auto) 8, Eosinophils (%) (Auto) 5, Basophils (%) (Auto) 0, Neutrophils # (Auto) 4.9, Lymphocytes # (Auto) 1.0, Monocytes # (Auto) 0.5, Eosinophils # (Auto) 0.3, Basophils # (Auto) 0.0, Immature Granulocyte # (Auto) 0.0, Sodium Level 142, Potassium Level 4.2, Chloride Level 110H, Carbon Dioxide Level 22, Anion Gap 10, Blood Urea Nitrogen 18, Creatinine 1.08, Estimat Glomerular Filtration Rate 51, BUN/Creatinine Ratio 17, Glucose Level 83, Calcium Level 9.8, Corrected Calcium 10.2H, Magnesium Level 2.2, Total Bilirubin 0.7, Aspartate Amino Transf (AST/SGOT) 21, Alanine Aminotransferase (ALT/SGPT) 21, Alkaline Phosphatase 100, Total Protein 6.5, Albumin 3.5 11/29/21 10:42: Glucometer 133H Microbiology 11/27/21 MRSA Screen - Preliminary, Resulted Assessment/Plan Assessment/Plan Assess & Plan/Chief Complaint Assessment: CVA subacute not a tPa candidate Left sided weakness Confusion Expressive aphasia HTN HLP Chronic pain Confusion Plan: Cardiology consult [facility] ICU Lipid panel Carotid MRI 11/28/21: Move to 4th floor 11/29/21: Monitor BP and HR Appreciate Dr Aldridge OAC Diagnosis/Problems Diagnosis/Problems (1) Cerebrovascular accident due to cerebral artery occlusion Status: Acute (2) Atrial fibrillation Status: Acute Qualifiers: Qualified Codes: I48.91 - Unspecified atrial fibrillation (3) Hypertension Status: Chronic (4) Osteoarthritis Status: Chronic (5) Insomnia Status: Chronic Clinical Quality Measures Stroke: Date of last known well: Nov 28, 2021 Time of last known well: 00:30 Symptoms onset unknown: Yes LUIS FELIPE COREAS DO Nov 29, 2021 16:01
[2021-11-29] MEDS: ZOLPIDEM 5 MG (AMBIEN) TAB PO SCH (21:05)
[2021-11-30] MEDS: ALPRAZolam 0.25 MG (XANAX) TAB PO PRN (02:03)
[2021-11-30 03:19] VITALS: BP 145/82
[2021-11-30] MEDS: inSUlin ASPART (NovoLOG) 1 UNIT/0.01 ML (CHARGE PER UNIT) SQ SCH ×2 (06:00→11:09)
--- NOTE | 2021-11-30 06:06 | Progress Note ---
Subjective Date Seen by a Provider: Nov 30, 2021 Time Seen by a Provider: 10:00 Objective Exam Last Set of Vital Signs Vital Signs Date Time Temp Pulse Resp B/P (MAP) Pulse Ox O2 Delivery O2 Flow Rate FiO2 11/30/21 03:19 35.4 89 20 145/82 (103) 96 Room Air 11/29/21 21:05 0.00 Capillary Refill : Less Than 3 Seconds I&O Intake and Output 11/30/21 00:00 Intake Total 800 ml Output Total 900 ml Balance -100 ml Intake Oral 800 ml Output Urine Total 900 ml # Bowel Movements 3 Results Lab Laboratory Tests 11/29/21 10:42: Glucometer 133H 11/29/21 16:46: Glucometer 88 11/29/21 20:41: Glucometer 95 11/30/21 05:13: Glucometer 78 Microbiology 11/27/21 MRSA Screen - Preliminary, Resulted Assessment/Plan Assessment/Plan Assess & Plan/Chief Complaint Assessment: CVA subacute not a tPa candidate Left sided weakness Confusion Expressive aphasia HTN HLP Chronic pain Confusion Plan: Cardiology consult [facility] ICU Lipid panel Carotid MRI 11/28/21: Move to 4th floor 11/29/21: Monitor BP and HR Appreciate Dr Aldridge OAC Diagnosis/Problems Diagnosis/Problems (1) Cerebrovascular accident due to cerebral artery occlusion Status: Acute (2) Atrial fibrillation Status: Acute Qualifiers: Qualified Codes: I48.91 - Unspecified atrial fibrillation (3) Hypertension Status: Chronic (4) Osteoarthritis Status: Chronic (5) Insomnia Status: Chronic Clinical Quality Measures Stroke: Date of last known well: Nov 28, 2021 Time of last known well: 00:30 Symptoms onset unknown: Yes LUIS FELIPE COREAS DO Nov 30, 2021 06:06
[2021-11-30 06:28] LABS: BASOPHILS % (AUTO) 1 % (0-10); EOSINOPHILS # (AUTO) 0.2 10^3/uL (0.0-0.3); EOSINOPHILS % (AUTO) 2 % (0-10); HEMATOCRIT 43 % (35-52); HEMOGLOBIN 13.8 g/dL (11.5-16.0); LYMPHOCYTES % (AUTO) 11 % (12-44); MEAN CORPUSCULAR HEMOGLOBIN 27 pg (25-34); MEAN CORPUSCULAR HGB CONC 32 g/dL (32-36); MEAN CORPUSCULAR VOLUME 84 fL (80-99); MONOCYTES # (AUTO) 0.5 10^3/uL (0.0-1.0); MONOCYTES % (AUTO) 6 % (0-12); NEUTROPHILS # (AUTO) 6.9 10^3/uL (1.8-7.8); NEUTROPHILS % (AUTO) 80 % (42-75); PLATELET COUNT 357 10^3/uL (130-400); WHITE BLOOD COUNT 8.6 10^3/uL (4.3-11.0)
[2021-11-30 06:32] LABS: ALBUMIN 3.4 GM/DL (3.2-4.5); POTASSIUM 4.1 MMOL/L (3.6-5.0)
[2021-11-30 06:33] LABS: CALCIUM 9.8 MG/DL (8.5-10.1)
[2021-11-30 06:34] LABS: TOTAL PROTEIN 6.4 GM/DL (6.4-8.2)
[2021-11-30 06:36] LABS: BILIRUBIN,TOTAL 0.6 MG/DL (0.1-1.0)
[2021-11-30 07:53] VITALS: BP 160/86
[2021-11-30] MEDS: ASPIRIN 325 MG (5 GR) TABLET PO SCH (08:29)
[2021-11-30] MEDS: APIXABAN 2.5 MG (ELIQUIS) TABLET PO SCH (08:29)
[2021-11-30] MEDS: SENNOSIDES 8.6 MG (SENOKOT) TAB PO SCH (08:30)
[2021-11-30] MEDS: DOCUSATE SODIUM 100 MG (COLACE) CAP PO SCH (08:30)
[2021-11-30] MEDS ORDERED: amLODIPine 2.5MG (NORVASC) TAB PO SCH (09:00)
[2021-11-30] MEDS ORDERED: ASPI-808 PO (10:28)
[2021-11-30] MEDS ORDERED: AMLO2.5T4 PO (10:28)
[2021-11-30] MEDS ORDERED: APIX2.5T PO (10:28)
[2021-11-30] MEDS ORDERED: ATOR80TA76 PO (10:28)
--- NOTE | 2021-11-30 10:29 | Discharge Summary ---
Diagnosis/Chief Complaint Date of Admission Nov 27, 2021 at 12:03 Date of Discharge Discharge Date: Nov 30, 2021 Discharge Diagnosis Assessment: CVA subacute not a tPa candidate Left sided weakness Confusion Expressive aphasia HTN HLP Chronic pain Confusion Plan: Cardiology consult [facility] ICU Lipid panel Carotid MRI 11/28/21: Move to 4th floor 11/29/21: Monitor BP and HR Appreciate Dr Aldridge OAC Discharge Summary Discharge Physical Examination Allergies: Coded Allergies: No Known Drug Allergies (Unverified , 05/10/14) Vitals & I&Os Vital Signs Date Time Temp Pulse Resp B/P (MAP) Pulse Ox O2 Delivery O2 Flow Rate FiO2 11/30/21 07:53 36.3 97 16 160/86 (110) 96 Room Air 11/29/21 21:05 0.00 General Appearance: Alert, Oriented X3, Cooperative Respiratory: Clear to Auscultation Cardiovascular: Regular Rate Psych/Mental Status: Mental Status NL Hospital Course Was the Problem List Reviewed?: Yes Pt had an uneventful hospital course for 4 days after she presented with left sided weakness consistent with CVA. She was placed on protocol meds. New onset afib prompted cardiology consult. Eliquis and Aspirin were started. Pt had confusion but that did clear quite a bit. She was meeting criteria for in-patie nt rehab. She was moved there in stable condition. Labs (last 24 hrs) Laboratory Tests 11/27/21 08:39: White Blood Count 7.7, Red Blood Count 4.80, Hemoglobin 12.9, Hematocrit 41, Mean Corpuscular Volume 85, Mean Corpuscular Hemoglobin 27, Mean Corpuscular Hemoglobin Concent 32, Red Cell Distribution Width 13.8, Platelet Count 362, Mean Platelet Volume 10.8, Immature Granulocyte % (Auto) 1, Neutrophils (%) (Auto) 74, Lymphocytes (%) (Auto) 12, Monocytes (%) (Auto) 9, Eosinophils (%) (Auto) 4, Basophils (%) (Auto) 0, Neutrophils # (Auto) 5.7, Lymphocytes # (Auto) 0.9L, Monocytes # (Auto) 0.7, Eosinophils # (Auto) 0.3, Basophils # (Auto) 0.0, Immature Granulocyte # (Auto) 0.0, Prothrombin Time 14.3, INR Comment 1.1, Ac tivated Partial Thromboplast Time 31, D-Dimer 1.29H, Urine Color YELLOW, Urine Clarity CLEAR, Urine pH 6.5, Urine Specific [place] <=1.005, Urine Protein NEGATIVE, Urine Glucose (UA) NEGATIVE, Urine Ketones NEGATIVE, Urine Nitrite NEGATIVE, Urine Bilirubin NEGATIVE, Urine Urobilinogen 0.2, Urine Leukocyte Esterase NEGATIVE, Urine RBC (Auto) NEGATIVE, Urine RBC NONE, Urine WBC RARE, Urine Squamous Epithelial Cells RARE, Urine Crystals NONE, Urine Bacteria NEGATIVE, Urine Casts NONE, Urine Mucus NEGATIVE, Urine Culture Indicated NO, Sodium Level 138, Potassium Level 4.2, Chloride Level 104, Carbon Dioxide Level 25, Anion Gap 9, Blood Urea Nitrogen 22H, Creatinine 1.18, Estimat Glomerular Filtration Rate 46, BUN/Creatinine Ratio 19, Glucose Level 94, Calcium Level 9.9, Corrected Calcium 10.1, Total Bilirubin 0.6, Aspartate Amino Transf (AST/SGOT) 17, Alanine Aminotransferase (ALT/SGPT) 21, Alkaline Phosphatase 106, Troponin I < 0.028, Total Protein 6.8, Albumin 3.8 11/27/21 08:45: SARS-CoV-2 RNA (RT-PCR) Not Detected 11/27/21 08:50: Glucometer 96 11/27/21 10:22: Glucometer 89 11/27/21 17:24: Glucometer 90 11/28/21 04:08: White Blood Count 7.1, Red Blood Count 4.88, Hemoglobin 12.8, Hematocrit 41, Mean Corpuscular Volume 85, Mean Corpuscular Hemoglobin 26, Mean Corpuscular Hemoglobin Concent 31L, Red Cell Distribution Width 13.8, Platelet Count 329, Mean Platelet Volume 10.7, Immature Granulocyte % (Auto) 0, Neutrophils (%) (Auto) 69, Lymphocytes (%) (Auto) 18, Monocytes (%) (Auto) 9, Eosinophils (%) (Auto) 3, Basophils (%) (Auto) 0, Neutrophils # (Auto) 4.9, Lymphocytes # (Auto) 1.3, Monocytes # (Auto) 0.7, Eosinophils # (Auto) 0.2, Basophils # (Auto) 0.0, Immature Granulocyte # (Auto) 0.0, Sodium Level 141, Potassium Level 3.8, Chloride Level 108H, Carbon Dioxide Level 21, Anion Gap 12, Blood Urea Nitrogen 16, Creatinine 0.99, Estimat Glomerular Filtration Rate 57, BUN/Creatinine Ratio 16, Glucose Level 84, Calcium Level 9.8, Corrected Calcium 10.2H, Phosphorus Level 3.5, Magnesium Level 2.1, Total Bilirubin 0.6, Aspartate Amino Transf (AST/SGOT) 19, Alanine Aminotransferase (ALT/SGPT) 22, Alkaline Phosphatase 99, Total Protein 6.2L, Albumin 3.5, Triglycerides Level 83, Cholesterol Level 154, LDL Cholesterol Direct 101, VLDL Cholesterol 17, HDL Cholesterol 43 11/28/21 11:54: Glucometer 97 11/28/21 16:15: Glucometer 86 11/28/21 20:12: Glucometer 99 11/29/21 05:07: Glucometer 78 11/29/21 06:01: White Blood Count 6.8, Red Blood Count 4.97, Hemoglobin 13.3, Hematocrit 43, Mean Corpuscular Volume 86, Mean Corpuscular Hemoglobin 27, Mean Corpuscular Hemoglobin Concent 31L, Red Cell Distribution Width 13.9, Platelet Count 339, Mean Platelet Volume 10.9, Immature Granulocyte % (Auto) 0, Neutrophils (%) (Auto) 72, Lymphocytes (%) (Auto) 15, Monocytes (%) (Auto) 8, Eosinophils (%) (Auto) 5, Basophils (%) (Auto) 0, Neutrophils # (Auto) 4.9, Lymphocytes # (Auto) 1.0, Monocytes # (Auto) 0.5, Eosinophils # (Auto) 0.3, Basophils # (Auto) 0.0, Immature Granulocyte # (Auto) 0.0, Sodium Level 142, Potassium Level 4.2, Chloride Level 110H, Carbon Dioxide Level 22, Anion Gap 10, Blood Urea Nitrogen 18, Creatinine 1.08, Estimat Glomerular Filtration Rate 51, BUN/Creatinine Ratio 17, Glucose Level 83, Calcium Level 9.8, Corrected Calcium 10.2H, Magnesium Level 2.2, Total Bilirubin 0.7, Aspartate Amino Transf (AST/SGOT) 21, Alanine Aminotransferase (ALT/SGPT) 21, Alkaline Phosphatase 100, Total Protein 6.5, Alb umin 3.5 11/29/21 10:42: Glucometer 133H 11/29/21 16:46: Glucometer 88 11/29/21 20:41: Glucometer 95 11/30/21 05:13: Glucometer 78 11/30/21 05:55: White Blood Count 8.6, Red Blood Count 5.13H, Hemoglobin 13.8, Hematocrit 43, Mean Corpuscular Volume 84, Mean Corpuscular Hemoglobin 27, Mean Corpuscular Hemoglobin Concent 32, Red Cell Distribution Width 13.8, Platelet Count 357, Mean Platelet Volume 11.0, Immature Granulocyte % (Auto) 0, Neutrophils (%) (Auto) 80H, Lymphocytes (%) (Auto) 11L, Monocytes (%) (Auto) 6, Eosinophils (%) (Auto) 2, Basophils (%) (Auto) 1, Neutrophils # (Auto) 6.9, Lymphocytes # (Auto) 1.0, Monocytes # (Auto) 0.5, Eosinophils # (Auto) 0.2, Basophils # (Auto) 0.0, Immature Granulocyte # (Auto) 0.0, Sodium Level 140, Potassium Level 4.1, Chloride Level 107, Carbon Dioxide Level 21, Anion Gap 12, Blood Urea Nitrogen 21H, Creatinine 1.00, Estimat Glomerular Filtration Rate 56, BUN/Creatinine Ratio 21, Glucose Level 76, Calcium Level 9.8, Corrected Calcium 10.3H, Magnesium Level 2.0, Total Bilirubin 0.6, Aspartate Amino Transf (AST/SGOT) 22, Alanine Aminotransferase (ALT/SGPT) 20, Alkaline Phosphatase 94, Total Protein 6.4, Albumin 3.4 11/30/21 11:04: Glucometer 86 Microbiology 11/27/21 MRSA Screen - Final, Complete MRSA not isolated Pending Labs Microbiology Date/Time Source Procedure Growth Status 11/27/21 19:19 Nose MRSA Screen - Final MRSA not isolated Complete Laboratory Tests 11/27/21 08:39: White Blood Count 7.7, Red Blood Count 4.80, Hemoglobin 12.9, Hematocrit 41, Mean Corpuscular Volume 85, Mean Corpuscular Hemoglobin 27, Mean Corpuscular Hemoglobin Concent 32, Red Cell Distribution Width 13.8, Platelet Count 362, Mean Platelet Volume 10.8, Immature Granulocyte % (Auto) 1, Neutrophils (%) (Auto) 74, Lymphocytes (%) (Auto) 12, Monocytes (%) (Auto) 9, Eosinophils (%) (Auto) 4, Basophils (%) (Auto) 0, Neutrophils # (Auto) 5.7, Lymphocytes # (Auto) 0.9, Monocytes # (Auto) 0.7, Eosinophils # (Auto) 0.3, Basophils # (Auto) 0.0, Immature Granulocyte # (Auto) 0.0, Prothrombin Time 14.3, INR Comment 1.1, Activated Partial Thromboplast Time 31, D-Dimer 1.29, Urine Color YELLOW, Urine Clarity CLEAR, Urine pH 6.5, Urine Specific [place] <=1.005, Urine Protein NEGATIVE, Urine Glucose (UA) NEGATIVE, Urine Ketones NEGATIVE, Urine Nitrite NEGATIVE, Urine Bilirubin NEGATIVE, Urine Urobilinogen 0.2, Urine Leukocyte Esterase NEGATIVE, Urine RBC (Auto) NEGATIVE, Urine RBC NONE, Urine WBC RARE, Urine Squamous Epithelial Cells RARE, Urine Crystals NONE, Urine Bacteria NEGATIVE, Urine Casts NONE, Urine Mucus NEGATIVE, Urine Culture Indicated NO, Sodium Level 138, Potassium Level 4.2, Chloride Level 104, Carbon Dioxide Level 25, Anion Gap 9, Blood Urea Nitrogen 22, Creatinine 1.18, Estimat Glomerular Filtration Rate 46, BUN/Creatinine Ratio 19, Glucose Level 94, Calcium Level 9.9, Corrected Calcium 10.1, Total Bilirubin 0.6, Aspartate Amino Transf (AST/SGOT) 17, Alanine Aminotransferase (ALT/SGPT) 21, Alkaline Phosphatase 106, Troponin I < 0.028, Total Protein 6.8, Albumin 3.8 11/27/21 08:45: SARS-CoV-2 RNA (RT-PCR) Not Detected 11/27/21 08:50: Glucometer 96 11/27/21 10:22: Glucometer 89 11/27/21 17:24: Glucometer 90 11/28/21 04:08: White Blood Count 7.1, Red Blood Count 4.88, Hemoglobin 12.8, Hematocrit 41, Mean Corpuscular Volume 85, Mean Corpuscular Hemoglobin 26, Mean Corpuscular Hemoglobin Concent 31, Red Cell Distribution Width 13.8, Platelet Count 329, Mean Platelet Volume 10.7, Immature Granulocyte % (Auto) 0, Neutrophils (%) (Auto) 69, Lymphocytes (%) (Auto) 18, Monocytes (%) (Auto) 9, Eosinophils (%) (Auto) 3, Basophils (%) (Auto) 0, Neutrophils # (Auto) 4.9, Lymphocytes # (Auto) 1.3, Monocytes # (Auto) 0.7, Eosinophils # (Auto) 0.2, Basophils # (Auto) 0.0, Immature Granulocyte # (Auto) 0.0, Sodium Level 141, Potassium Level 3.8, C hloride Level 108, Carbon Dioxide Level 21, Anion Gap 12, Blood Urea Nitrogen 16, Creatinine 0.99, Estimat Glomerular Filtration Rate 57, BUN/Creatinine Ratio 16, Glucose Level 84, Calcium Level 9.8, Corrected Calcium 10.2, Phosphorus Level 3.5, Magnesium Level 2.1, Total Bilirubin 0.6, Aspartate Amino Transf (AST/SGOT) 19, Alanine Aminotransferase (ALT/SGPT) 22, Alkaline Phosphatase 99, Total Protein 6.2, Albumin 3.5, Triglycerides Level 83, Cholesterol Level 154, LDL Cholesterol Direct 101, VLDL Cholesterol 17, HDL Cholesterol 43 11/28/21 11:54: Glucometer 97 11/28/21 16:15: Glucometer 86 11/28/21 20:12: Glucometer 99 11/29/21 05:07: Glucometer 78 11/29/21 06:01: White Blood Count 6.8, Red Blood Count 4.97, Hemoglobin 13.3, Hematocrit 43, Mean Corpuscular Volume 86, Mean Corpuscular Hemoglobin 27, Mean Corpuscular Hemoglobin Concent 31, Red Cell Distribution Width 13.9, Platelet Count 339, Mean Platelet Volume 10.9, Immature Granulocyte % (Auto) 0, Neutrophils (%) (Auto) 72, Lymphocytes (%) (Auto) 15, Monocytes (%) (Auto) 8, Eosinophils (%) (Auto) 5, Basophils (%) (Auto) 0, Neutrophils # (Auto) 4.9, Lymphocytes # (Auto) 1.0, Monocytes # (Auto) 0.5, Eosinophils # (Auto) 0.3, Basophils # (Auto) 0.0, Immature Granulocyte # (Auto) 0.0, Sodium Level 142, Potassium Level 4.2, Chloride Level 110, Carbon Dioxide Level 22, Anion Gap 10, Blood Urea Nitrogen 18, Creatinine 1.08, Estimat Glomerular Filtration Rate 51, BUN/Creatinine Ratio 17, Glucose Level 83, Calcium Level 9.8, Corrected Calcium 10.2, Magnesium Level 2.2, Total Bilirubin 0.7, Aspartate Amino Transf (AST/SGOT) 21, Alanine Aminotransferase (ALT/SGPT) 21, Alkaline Phosphatase 100, Total Protein 6.5, Albumin 3.5 11/29/21 10:42: Glucometer 133 11/29/21 16:46: Glucometer 88 11/29/21 20:41: Glucometer 95 11/30/21 05:13: Glucometer 78 11/30/21 05:55: White Blood Count 8.6, Red Blood Count 5.13, Hemoglobin 13.8, Hematocrit 43, Mean Corpuscular Volume 84, Mean Corpuscular Hemoglobin 27, Mean Corpuscular Hemoglobin Concent 32, Red Cell Distribution Width 13.8, Platelet Count 357, Mean Platelet Volume 11.0, Immature Granulocyte % (Auto) 0, Neutrophils (%) (Auto) 80, Lymphocytes (%) (Auto) 11, Monocytes (%) (Auto) 6, Eosinophils (%) (Auto) 2, Basophils (%) (Auto) 1, Neutrophils # (Auto) 6.9, Lymphocytes # (Auto) 1.0, Monocytes # (Auto) 0.5, Eosinophils # (Auto) 0.2, Basophils # (Auto) 0.0, Immature Granulocyte # (Auto) 0.0, Sodium Level 140, Potassium Level 4.1, Chloride Level 107, Carbon Dioxide Level 21, Anion Gap 12, Blood Urea Nitrogen 21, Creatinine 1.00, Estimat Glomerular Filtration Rate 56, BUN/Creatinine Ratio 21, Glucose Level 76, Calcium Level 9.8, Corrected Calcium 10.3, Magnesium Level 2.0, Total Bilirubin 0.6, Aspartate Amino Transf (AST/SGOT) 22, Alanine Aminotransferase (ALT/SGPT) 20, Alkaline Phosphatase 94, Total Protein 6.4, Albumin 3.4 11/30/21 11:04: Glucometer 86 Discharge Home Medications: Active Scripts Active Aspirin 325 Mg Tablet 325 Mg PO DAILY 365 Days Amlodipine Besylate 2.5 Mg Tablet 2.5 Mg PO DAILY 365 Days Atorvastatin Calcium 80 Mg Tablet 80 Mg PO DAILY 365 Days Eliquis (Apixaban) 2.5 Mg Tablet 2.5 Mg PO BID 365 Days Reported Ambien (Zolpidem Tartrate) 5 Mg Tablet 5 Mg PO HS Baclofen 10 Mg Tablet 10 Mg PO TID PRN Tramadol HCl 50 Mg Tablet 100 Mg PO Q6H PRN Instructions to patient/family Please see electronic discharge instructions given to patient. Diagnosis/Problems Diagnosis/Problems (1) Cerebrovascular accident due to cerebral artery occlusion Status: Acute (2) Atrial fibrillation Status: Acute Qualifiers: Qualified Codes: I48.91 - Unspecified atrial fibrillation (3) Hypertension Status: Chronic (4) Osteoarthritis Status: Chronic (5) Insomnia Status: Chronic Clinical Quality Measures Stroke: Date of last known well: Nov 28, 2021 Time of last known well: 00:30 Symptoms onset unknown: Yes LUIS FELIPE COREAS DO Nov 30, 2021 10:29
--- NOTE | 2021-11-30 10:41 | Progress Note - Cardiology ---
Cardiology SOAP Progress Note Subjective: Lying in bed Working with speech therapy No c/o CP or SOB Objective: I&O/Vital Signs 11/29/21 11/30/21 11/30/21 11/30/21 23:02 01:00 03:19 06:48 Temp 36.0 35.4 Pulse 95 95 89 96 Resp 20 20 B/P (MAP) 160/88 (112) 145/82 (103) Pulse Ox 94 96 O2 Delivery Room Air Room Air 11/30/21 07:53 Temp 36.3 Pulse 97 Resp 16 B/P (MAP) 160/86 (110) Pulse Ox 96 O2 Delivery Room Air 11/30/21 00:00 Intake Total 700 ml Output Total 600 ml Balance 100 ml Weight (Pounds): 155 Weight (Ounces): 6.0 Weight (Calculated Kilograms): [id number] Constitutional: AAO x 3, other (speech has improved) Respiratory: No accessory muscle use, No respiratory distress; chest expansion is symmetric, chest is bilaterally symmetric, lungs clear to auscultation Cardiovascular: irregularly irregular; No JVD; S1 and S2 Gastrointestional: No tender; soft, round, audible bowel sounds Extremities: no lower extremity edema bilateral Neurologic/Psychiatric: other (left-sided upper and lower extremity hemiparesis) Skin: No rash on exposed areas, No ulcerations on exposed areas Results/Procedures: Labs Laboratory Tests 11/29/21 10:42: Glucometer 133H 11/29/21 16:46: Glucometer 88 11/29/21 20:41: Glucometer 95 11/30/21 05:13: Glucometer 78 11/30/21 05:55: White Blood Count 8.6, Red Blood Count 5.13H, Hemoglobin 13.8, Hematocrit 43, Mean Corpuscular Volume 84, Mean Corpuscular Hemoglobin 27, Mean Corpuscular Hemoglobin Concent 32, Red Cell Distribution Width 13.8, Platelet Count 357, Mean Platelet Volume 11.0, Immature Granulocyte % (Auto) 0, Neutrophils (%) (Auto) 80H, Lymphocytes (%) (Auto) 11L, Monocytes (%) (Auto) 6, Eosinophils (%) (Auto) 2, Basophils (%) (Auto) 1, Neutrophils # (Auto) 6.9, Lymphocytes # (Auto) 1.0, Monocytes # (Auto) 0.5, Eosinophils # (Auto) 0.2, Basophils # (Auto) 0.0, Immature Granulocyte # (Auto) 0.0, Sodium Level 140, Potassium Level 4.1, Chloride Level 107, Carbon Dioxide Level 21, Anion Gap 12, Blood Urea Nitrogen 21H, Creatinine 1.00, Estimat Glomerular Filtration Rate 56, BUN/Creatinine Ratio 21, Glucose Level 76, Calcium Level 9.8, Corrected Calcium 10.3H, Magnesium Level 2.0, Total Bilirubin 0.6, Aspartate Amino Transf (AST/SGOT) 22, Alanine Aminotransferase (ALT/SGPT) 20, Alkaline Phosphatase 94, Total Protein 6.4, Albumin 3.4 Microbiology 11/27/21 MRSA Screen - Preliminary, Resulted Laboratory Tests 11/29/21 06:01 11/30/21 05:55 A/P: Assessment: 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 This area of occlusion is of unknown age.There is moderate to severe stenosis involving the distal right P1 [employer] and proximal left P2 [employer] region. There is severe stenosis involving the paraclinoid and supraclinoid left ICA regions. per CTA on 11-27-21 - Management per stroke team (Dr Lopez) - Per the ED note of 11-27-21: Multiple discussions with [facility], initial discussion was at [phone] Platt who recommended CT angiography of the brain and cervical vessels. 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 She has no "large vessel occlusion" and therefore is not a candidate for intervention. Dr. Platt was made aware of these results at 11:15 AM. She recommends permissive hypertension, holding her blood pressure medications. Daily aspirin and a head MRI. She would need to be evaluated for rehab. A-fib with controlled vent response - undetermined length of time - first dx on ECG of 11-27-[address] [facility] [place] [facility] - advise OAC with Eliquis if ok with Dr. Lopez - Echo on 11/27/21: LVEF 60-65%, unspecified diastolic dysfunction, mod to sev enlargement of LA, mild CHARLEY, PASP 30-35 mmHg Significant hypertension Plan: * Multiple issues addressed * BP is considerably high. Low dose amlodipine has been allowed with parameters to hold for SBP less than or equal to 140 mmHg per medical services * Avoid beta-azar and/or diltiazem because vent response is not rapid and we wish to avoid bradycardia * Eliquis 5 mg BID has been allowed by medical services - continue * Carotid arterial dz - please seen note from [facility] stroke team above as per the ED note * Replace electrolytes as indicated and monitor labs Clinical Quality Measures Stroke: Date of last known well: Nov 28, 2021 Time of last known well: 00:30 Symptoms onset unknown: Yes DARCY DENNIS Nov 30, 2021 10:41
--- NOTE | 2021-11-30 17:04 | Progress Note - Cardiology ---
Cardiology SOAP Progress Note Subjective: L-sided weakness is improving No cp or palp or syncope or swelling No shortness of breath No n/v/d Gen weakness present Objective: I&O/Vital Signs 11/30/21 11/30/21 11/30/21 06:48 07:29 07:53 Temp 36.3 Pulse 96 97 Resp 16 B/P (MAP) 160/86 (110) Pulse Ox 97 96 O2 Delivery Room Air Room Air 11/30/21 00:00 Intake Total 700 ml Output Total 600 ml Balance 100 ml Weight (Pounds): 155 Weight (Ounces): 6.0 Weight (Calculated Kilograms): 70.870935 Constitutional: AAO x 3, other (speech has improved) Respiratory: No accessory muscle use, No respiratory distress; chest expansion is symmetric, chest is bilaterally symmetric, lungs clear to auscultation Cardiovascular: irregularly irregular; No JVD; S1 and S2 Gastrointestional: No tender; soft, round, audible bowel sounds Extremities: no lower extremity edema bilateral Neurologic/Psychiatric: other (left-sided upper and lower extremity hemiparesis) Skin: No rash on exposed areas, No ulcerations on exposed areas Results/Procedures: Labs Laboratory Tests 11/29/21 20:41: Glucometer 95 11/30/21 05:13: Glucometer 78 11/30/21 05:55: White Blood Count 8.6, Red Blood Count 5.13H, Hemoglobin 13.8, Hematocrit 43, Mean Corpuscular Volume 84, Mean Corpuscular Hemoglobin 27, Mean Corpuscular Hemoglobin Concent 32, Red Cell Distribution Width 13.8, Platelet Count 357, Mean Platelet Volume 11.0, Immature Granulocyte % (Auto) 0, Neutrophils (%) (Auto) 80H, Lymphocytes (%) (Auto) 11L, Monocytes (%) (Auto) 6, Eosinophils (%) (Auto) 2, Basophils (%) (Auto) 1, Neutrophils # (Auto) 6.9, Lymphocytes # (Auto) 1.0, Monocytes # (Auto) 0.5, Eosinophils # (Auto) 0.2, Basophils # (Auto) 0.0, Immature Granulocyte # (Auto) 0.0, Sodium Level 140, Potassium Level 4.1, Chloride Level 107, Carbon Dioxide Level 21, Anion Gap 12, Blood Urea Nitrogen 21H, Creatinine 1.00, Estimat Glomerular Filtration Rate 56, BUN/Creatinine Ratio 21, Glucose Level 76, Calcium Level 9.8, Corrected Calcium 10.3H, Magnesium Level 2.0, Total Bilirubin 0.6, Aspartate Amino Transf (AST/SGOT) 22, Alanine Aminotransferase (ALT/SGPT) 20, Alkaline Phosphatase 94, Total Protein 6.4, Albumin 3.4 11/30/21 11:04: Glucometer 86 Microbiology 11/27/21 MRSA Screen - Preliminary, Resulted A/P: Assessment: 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 This area of occlusion is of unknown age.There is moderate to severe stenosis involving the distal right P1 CHANNELER INSOLE and proximal left P2 CHANNELER INSOLE region. There is severe stenosis involving the paraclinoid and supraclinoid left ICA regions. per CTA on 11-27-21 - Management per stroke team (Dr Lopez) - Per the ED note of 11-27-21: Multiple discussions with [facility], initial discussion was at [phone] Platt who recommended CT angiography of the brain and cervical vessels. 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 She has no "large vessel occlusion" and therefore is not a candidate for intervention. Dr. Platt was made aware of these results at 11:15 AM. She recommends permissive hypertension, holding her blood pressure medications. Daily aspirin and a head MRI. She would need to be evaluated for rehab. A-fib with controlled vent response - undetermined length of time - first dx on ECG of 11-27-21 at the [facility] ED - advise OAC with Eliquis if ok with Dr. Lopez - Echo on 11/27/21: LVEF 60-65%, unspecified diastolic dysfunction, mod to sev enlargement of LA, mild CHARLEY, PASP 30-35 mmHg Significant hypertension Plan: * Multiple issues addressed * BP is considerably high. Low dose amlodipine has been allowed with parameters to hold for SBP less than or equal to 140 mmHg per medical services * Avoid beta-azar and/or diltiazem because vent response is not rapid and we wish to avoid bradycardia * Eliquis 5 mg BID has been allowed by medical services - continue * Carotid arterial dz - please seen note from [facility] stroke team above as per the ED note * Replace electrolytes as indicated and monitor labs Clinical Quality Measures Stroke: Date of last known well: Nov 28, 2021 Time of last known well: 00:30 Symptoms onset unknown: Yes [facility] ALVARE[facility] CCDS Nov 30, 2021 17:04
== END 2021-11-30 11:13 | DRG 65 ==
LOC: EDUNIT# 08:18 → ER 08:19 → ICU 12:03 → 4TH 11-28 15:45
PROVIDERS: ADMIT Internal Medicine; ATTEND Internal Medicine
PROC: 4A03X5D Measurement of Arterial Flow, Intracranial, External Approach (ICD-10-PCS; principal; 2021-11-27)
DX: I63.59 Cerebral infarction due to unspecified occlusion or stenosis of other cerebral artery (principal); G81.94 Hemiplegia, unspecified affecting left nondominant side; I48.91 Unspecified atrial fibrillation; I77.9 Disorder of arteries and arterioles, unspecified; I10 Essential (primary) hypertension; R29.707 NIHSS score 7; R13.0 Aphagia; E78.5 Hyperlipidemia, unspecified; Z20.822 Contact with and (suspected) exposure to COVID-19; G89.29 Other chronic pain; G47.00 Insomnia, unspecified; M16.10 Unilateral primary osteoarthritis, unspecified hip; M47.9 Spondylosis, unspecified; Z79.82 Long term (current) use of aspirin; Z79.899 Other long term (current) drug therapy
CPT/HCPCS: 36415; 51702; 70450; 70496; 70498; 70551; 71045; 80053; 80061; 81000; 82947; 83735; 84100; 84484; 85025; 85379; 85610; 85730; 87081; 87636; 93005; 93041; 93306; 93880; 94760

== ENCOUNTER 2021-11-30 10:30 | Inpatient (IN) | payer MEDICARE ==
[~2021-11-30] VITALS: Ht 167 cm; Wt 55.2 kg
[~2021-11-30 10:30] MED LIST changes: +AMLO2.5T4 PO; +APIX2.5T PO; +ASPI-808 PO; +ATOR80TA76 PO; +TRAM50TA3 PO
--- NOTE | 2021-11-30 10:57 | PM&R Post Admission Assessment ---
PM&R Date of Visit: Nov 30, 2021 Time of Visit: 12:00 History of Present Illness CC: CVA with left sided neglect and weakness HPI: This is an 81 yr old female clinic pt of [employer]. Pt has a past medical history of hypertension, chronic pain, and early cognitive deficient. She presented to in-patient rehab with left sided neglect and left sided weakness. She did have confusion up on medical floor but that has since cleared quite a bit. She will remain on Eliquis, Aspirin, and Statin. We will closely monitor pt in the meantime. Her prior level of functioning was the use of cane and independent of all ADLS, living with her spouse at home. Past Nptquxg-Dzinuo-Zworme Hx Past Med/Social Hx: Reviewed Nursing Past Med/Soc Hx, Reviewed and Corrections made Patient Social History Marrital Status: Employed/Student: retired Alcohol Use: Denies Use Smoking Status: Never a Smoker 2nd Hand Smoke Exposure: No Recent Hopitalizations: No Immunizations Up To Date Tetanus Booster (TDap): Unknown Date of Pneumonia Vaccine: Mar 20, 2018 Date of Influenza Vaccine: Mar 20, 2020 Seasonal Allergies Seasonal Allergies: No Past Medical History Surgeries: Bowel Surgery, Hysterectomy, Orthopedic Cardiac: Hypertension Reproductive: No Musculoskeletal: Arthritis, Fractures HEENT: Cataract Psychosocial: Sleep Difficulties Skin/Integumentary: Recent Skin Changes Family History Cardiovascular disease 19 FATHER 19 MOTHER FH: stroke 19 MOTHER No Pertinent Family Hx PM&R Allergy/Meds/Data Review Allergies Coded Allergies: No Known Drug Allergies (Unverified , 05/10/14) Home Medications Scheduled Amlodipine Besylate (Amlodipine Besylate), 2.5 MG PO DAILY Apixaban (Eliquis), 2.5 MG PO BID Aspirin (Aspirin), 325 MG PO DAILY Atorvastatin Calcium (Atorvastatin Calcium), 80 MG PO DAILY Zolpidem Tartrate (Ambien), 5 MG PO HS, (Reported) Scheduled PRN Baclofen (Baclofen), 10 MG PO TID PRN for MUSCLE SPASMS, (Reported) Tramadol HCl (Tramadol HCl), 100 MG PO Q6H PRN for PAIN-MODERATE (5-7), (Reported) Discontinued Medications Acetaminophen (Tylenol Extra Strength), 500 MG PO Q6H PRN for PAIN-MILD, (Reported) Discontinued Reason: No Longer Taking Aspirin (Aspirin EC), 81 MG PO Q48H, (Reported) Discontinued Reason: No Longer Taking Atenolol (Atenolol), 50 MG PO DAILY, (Reported) Baclofen (Baclofen), 10 MG PO TID PRN for MUSCLE SPASMS Discontinued Reason: No Longer Taking Hydrocodone Bit/Acetaminophen (Lortab 5 Mg Tablet), 1 TAB PO Q4H PRN for PAIN- MODERATE Discontinued Reason: No Longer Taking Loratadine (Claritin), 10 MG PO DAILY, (Reported) Discontinued Reason: No Longer Taking Melatonin (Melatonin), 6 MG PO HS, (Reported) Discontinued Reason: No Longer Taking Multivitamin (Daily Value), 0.5 TAB PO DAILY, (Reported) Discontinued Reason: No Longer Taking Henderson-3/Dha/Epa/Fish Oil (Fish Oil 1,000 mg Softgel), 1,000 MG PO DAILY, (Reported) Discontinued Reason: No Longer Taking Sulfamethoxazole/Trimethoprim (Bactrim Ds Tablet), 1 EACH PO BID Discontinued Reason: No Longer Taking Tolterodine Tartrate (Detrol LA), 4 MG PO DAILY, (Reported) Discontinued Reason: No Longer Taking Tolterodine Tartrate (Detrol LA), 2 MG PO HS, (Reported) Discontinued Reason: No Longer Taking Tramadol HCl (Tramadol HCl), 50 MG PO Q6H PRN for PAIN-MODERATE Discontinued Reason: No Longer Taking Triamcinolone Acet (Triamcinolone Acetonide 0.1% Cream), 15 GM TP BID Discontinued Reason: No Longer Taking [Lidocaine 4% Patch], 1 EA TOP DAILY Discontinued Reason: No Longer Taking Current Medications Current Medications Reviewed Review of Systems Constitutional: see HPI, malaise, weakness EENTM: no symptoms reported Respiratory: no symptoms reported Cardiovascular: no symptoms reported Gastrointestinal: no symptoms reported Genitourinary: other (Moore catheter) Musculoskeletal: back pain, joint pain Skin: no symptoms reported Psychiatric/Neurological: Anxiety, Depressed, Weakness All Other Systems Reviewed Negative Unless Noted: Yes Physical Exam Physical Exam Vital Signs Capillary Refill : Height, Weight, BMI Height: 5'5.00" Weight: 155lbs. 6.0oz. [id number]; 19.43 BMI Method:Stated General Appearance: No Apparent Distress, WD/WN, Chronically ill, Obese Eyes: Bilateral Eye Normal Inspection, Bilateral Eye PERRL HEENT: PERRL/EOMI, Normal ENT Inspection, Pharynx Normal Neck: Full Range of Motion, Normal Inspection, Non Tender, Supple, Carotid Bruit Respiratory: Chest Non Tender, Lungs Clear, Normal Breath Sounds, No Accessory Muscle Use, No Respiratory Distress Cardiovascular: Regular Rate, Rhythm, No Edema, No Gallop, No JVD, No Murmur, Normal Peripheral Pulses Gastrointestinal: Normal Bowel Sounds, No Organomegaly, No Pulsatile Mass, Non Tender, Soft Back: Normal Inspection, No CVA Tenderness, No Vertebral Tenderness Extremity: Normal Capillary Refill, Normal Inspection, Normal Range of Motion, Non Tender, No Calf Tenderness, No Pedal Edema Neurologic/Psychiatric: Alert, Oriented x3, Normal Mood/Affect, 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 Norm as Tested, Abnormal Gait, Facial Droop, Motor Weakness (Left-sided weakness 1/5 upper lower extremity) Skin: Normal Color, Warm/Dry Lymphatic: No Adenopathy PM&R Medical Assessment & Plan REHAB/MEDICAL ASSESSMENT AND PLAN: REHAB IMPAIRMENT GROUP: CVA ETIOLOGIC DIAGNOSIS: CVA The comorbidities that impact the patients function and/or functional outcome by: Catastrophic CVA with left-sided weakness, advanced age, confusion REHAB PLAN: The patient is being admitted to our comprehensive inpatient rehabilitation facility and can tolerate the intensity of service consisting of at least: 180 minutes of therapy a day, 5 out of 7 days a week Rehab treatment will consist of: PT and OT will focus on regaining function with use of assistive devices for left-sided weakness in order to return back home to independent living with spouse The patient/family has a good understanding of our discharge process and will benefit from an interdisciplinary inpatient rehabilitation program. The patient has potential to make improvement and is in need of at least two of the following multidisciplinary therapies including but not limited to physical, occupational, speech, and prosthetics and orthotics. Additionally the patient will need services from respiratory, nutritional services, wound care, psyc hology, etc. (Customize this to each patient). Given the patients complex condition and risk of further medical complications, rehabilitation services cannot be safely or effectively provided at a lower level of care such as a detention facility. BARRIERS TO DISCHARGE: Catastrophic weakness on the left side ESTIMATED LOS: 14 days DISPOSITION: Home with spouse versus assisted living RELEVANT CHANGES SINCE PREADMISSION SCREENING: I have compared the patients medical and functional status at the time of the preadmission screening and there are: no changes PROGNOSIS: Guarded REHABILITATION GOALS: 1.PT and OT will focus on regaining function with use of assistive devices for left-sided weakness in order to return back home to independent living with spouse All the above goals were reviewed with the patient and he/she is in agreement. By signing this document, I acknowledge that I have personally performed a full physical examination on this patient within 24 hours [facility] and have determined the patient to be able to tolerate the above course of treatment at an intensive level for a reasonable period of time. I will be completing a detailed individualized Plan of Care for this patient by day #4 of the patients stay based upon the Preadmission Screen, the Post-Admission Evaluation, and the therapy evaluations. Admission Dx/Comorbidities: (1) Cerebrovascular accident due to cerebral artery occlusion Status: Acute ICD Codes: I63.50 - Cerebral infarction due to unspecified occlusion or stenosis of unspecified cerebral artery (2) Hypertension Status: Chronic ICD Codes: I10 - Essential (primary) hypertension (3) Osteoarthritis Status: Chronic ICD Codes: M19.90 - Unspecified osteoarthritis, unspecified site (4) Insomnia Status: Chronic ICD Codes: G47.00 - Insomnia, unspecified (5) Atrial fibrillation Status: Acute ICD Codes: I48.91 - Unspecified atrial fibrillation (6) Overactive bladder Status: Chronic ICD Codes: N32.81 - Overactive bladder (7) History of bowel resection Status: Chronic ICD Codes: Z98.890 - Other specified postprocedural states; Z90.49 - Acquired a bsence of other specified parts of digestive tract Assessment/Plan Assessment and Plan Assess & Plan/Chief Complaint Assessment: CVA subacute not a tPa candidate New atrial fibrillation placed on oral anticoagulation and consult cardiology 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 Confusion now resolved Expressive aphasia much improved HTN HLP Chronic pain Osteoarthritis Plan: Oral anticoagulation Aggressive rehab Supportive care Fall risk LUIS FELIPE COREAS DO Nov 30, 2021 10:57
[2021-11-30] MEDS ORDERED: FLEET ENEMA ADULT 1 EA BTL PR PRN (11:00)
[2021-11-30] MEDS ORDERED: ALPRAZolam 0.25 MG (XANAX) TAB PO PRN ×2 (11:00→12:00)
[2021-11-30] MEDS ORDERED: guaiFENesin/CODEINE (ROBITUSSIN AC) 10ML UDC PO PRN (11:00)
[2021-11-30] MEDS ORDERED: ONDANSETRON 4 MG (ZOFRAN) ORAL DISSOLVE TAB PO PRN ×2 (11:00→12:00)
[2021-11-30] MEDS ORDERED: MELATONIN 3 MG TABLET PO PRN ×2 (11:00→12:00)
[2021-11-30] MEDS ORDERED: DOCUSATE SODIUM 100 MG (COLACE) CAP PO PRN (11:00)
[2021-11-30] MEDS ORDERED: diphenhydrAMINE 25 MG TAB (BENADRYL) PO PRN ×2 (11:00→12:00)
[2021-11-30] MEDS ORDERED: CALCIUM CARBONATE 500 MG (TUMS) TAB.CHEW PO PRN ×2 (11:00→12:00)
[2021-11-30] MEDS ORDERED: LOPERAMIDE 2 MG (IMODIUM) TABLET PO PRN (11:00)
[2021-11-30] MEDS ORDERED: ACETAMINOPHEN 325 MG TABLET PO PRN (11:00)
[2021-11-30] MEDS ORDERED: LACTULOSE SYRUP 10GM/15ML (ENULOSE) 30ML UDC PO PRN ×2 (11:00→12:00)
[2021-11-30] MEDS ORDERED: BISACODYL 10 MG SUPP (DULCOLAX) PR PRN ×2 (11:00→12:00)
[2021-11-30] MEDS ORDERED: ONDANSETRON 4 MG/2 ML (SDV) Z0FRAN IV PRN (12:00)
[2021-11-30] MEDS ORDERED: ANTACID SUSP 30 ML UDC (MYLANTA) PO PRN (12:00)
[2021-11-30] MEDS ORDERED: BACLOFEN 10 MG (LIORESAL) TAB PO PRN (12:00)
[2021-11-30] MEDS ORDERED: PATIENT MAY USE OWN MEDS, ALL PO SCH (12:00)
[2021-11-30] MEDS ORDERED: diphenhydrAMINE 50 MG/ML INJ (BENADRYL) IVP PRN (12:00)
[2021-11-30] MEDS ORDERED: morphine INJ 4 MG/ML 1 ML (VIAL/SYRINGE) IV PRN (12:00)
[2021-11-30] MEDS ORDERED: RT-ALBUTEROL SULF 2.5 MG/3 ML PRE-MIX VIAL INH PRN (12:00)
[2021-11-30] MEDS ORDERED: LORazepam INJ 2 MG/ML (ATIVAN) VIAL IVP PRN (12:00)
[2021-11-30] MEDS ORDERED: WATER (STERILE) FOR INJ 10 ML BTL INJ SCH (12:00)
[2021-11-30] MEDS ORDERED: MILK OF MAGNESIA 400 MG/5 ML 30 ML UDC PO PRN (12:00)
[2021-11-30] MEDS ORDERED: CATHETER FLUSH 10 ML SYR IV PRN (12:00)
[2021-11-30] MEDS ORDERED: ZIPRASIDONE 20 MG INJ (GEODON) VIAL IM PRN (12:00)
--- NOTE | 2021-11-30 12:00 | Physical Therapy Evaluation ---
PT Evaluation-General Medical Diagnosis Admission Date Nov 30, 2021 at 11:00 Medical Diagnosis: CVA Onset Date: Nov 27, 2021 Therapy Diagnosis Therapy Diagnosis: impaired mobility, strength, endurance, balance Height/Weight Height (Feet): 5 Height (Inches): 5.00 Weight (Pounds): 155 Weight (Ounces): 6.0 Referral Physician: Brigette Lopez DO Reason for Referral: Evaluation/Treatment Medical History Pertinent Medical History: Arthritis, HTN Additional Medical History Past Medical History Surgeries: Bowel Surgery, Hysterectomy, Orthopedic Cardiac: Hypertension Reproductive: No Musculoskeletal: Arthritis, Fractures HEENT: Cataract Psychosocial: Sleep Difficulties Skin/Integumentary: Recent Skin Changes Reviewed History: Yes Social History Current Living Status: Spouse Entry Into Home: Level Entry Prior Prior Level of Function SCALE: Activities may be completed with or without assistive devices. 5-Zosmkrgpfk-otytdfh completes the activity by him/herself with no assistance from a helper. 5-Set-up or Clean-up Assistance-helper sets up or cleans up; patient completes activity. [place] assists only prior to or following the activity. 4-Supervision or Touching Assistance-helper provides verbal cues and/or touching/steadying and/or contact guard assistance as patient completes activity. Assistance may be provided throughout the activity or intermittently. 3-Partial/Moderate Assistance-helper does LESS THAN HALF the effort. [place] lifts, holds or supports trunk or limbs, but provides less than half the effort. 2-Substantial/Maximal Assistance-helper does MORE THAN HALF the effort. [place] lifts or holds trunk or limbs and provides more than half the effort. 2-Qmgcmiwpx-hfkmwq does ALL the effort. Patient does none of the effort to complete the activity. Or, the assistance of 2 or more helpers is required for the patient to complete the activity. If activity was not attempted, code reason: 7-Patient Refused. 9-Not Applicable-not attempted and the patient did not perform the activity before the current illness, exacerbation or injury. 10-Not Attempted due to Environmental Limitations-(lack of equipment, weather restraints, etc.). 88-Not Attempted due to Medical Conditions or Safety Concerns. Bed Mobility: 6 Transfers (B,C,W/C): 6 Gait: 6 Stairs: 6 Indoor Mobility (Ambulation): Independent Stairs: Independent SPC PT Evaluation-Current Subjective Patient in bed pre tx, agrees to PT, has no complaints of pain at rest. Will be co-treating with OT for part of tx due to poor patient mobility, strength, endur ance, poor sitting and standing balance, severe debility, coordinate UE and LE during activity, safety and reduce risk of falls. Pt/Family Goals to be independent at home Objective Patient Orientation: Person, Place, Situation Attachments: Moore Catheter ROM/Strength ROM Lower Extremities WNL Strength Lower Extremities LLE (hip flexion 1/5, knee flexion 0/5, knee extension 1/5, dorsiflexion 0/5), RLE grossly 3+/5, patient has difficulty following directions for this Neuromuscular (Tone, Coordination, Reflexes) Patient seems to have intact peripheral vision bilaterally, she has difficulty with tracking but she also has difficulty just following directions Sensory Hearing: Functional Sensation Right Lower Extremit: Intact Sensation Left Lower Extremity: Intact Transfers Roll Left & Right (QC): 2 Sit to Lying (QC): 2 Lying to Sitting/Side of Bed(Q: 2 Sit to Stand (QC): 2 Chair/Jgi-pk-Gdkdk Xfer(QC): 2 Toilet Transfer (QC): 2 Car Transfer (QC): 2 Patient performs rolling and supine <-> sit with max assist, sit <-> stand and transfers max assist, car transfer max assist. Patient can roll to the left side with min/mod assist but needs max assist to roll to the right side. She needs cues for safety and positioning during transfers. 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 Patient can take a very small step with her right leg but left cannot get off the floor. Wheelchair Training Does the Pt Use a Wheelchair?: Yes Distance: 50'x2 Wheel 50 ft with 2 turns (QC): 3 Wheel 150 ft (QC): 88 Type of Wheelchair: Manual mod assist, uses right arm and leg, has difficulty using foot to steer Stairs 1 Step (curb) (QC): 88 4 Steps (QC): 88 12 Steps (QC): 88 Balance Sitting Static: Poor Sitting Dynamic: Poor Standing Static: Poor Standing Dynamic: Poor Picking up an Object (QC): 88 Treatment PT performed standing, transfers, WC mobility, positioning and safety during dressing and cleaning BM and ADL's, OT performed dressing, ADL's, UE positioning and safety during activity. Assessment/Needs Patient in recliner post tx with nurse call, phone, tray, all needs met. Patient has impaired mobility, strength, endurance, balance. She needs max assist for most functional mobility. 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 Goals Assisted Goals PT Assisted Goals Time Frame: Dec 21, 2021 Roll Left & Right (QC): 3 (Jonathan) Sit to Lying (QC): 3 (Jonathan) Lying-Sitting on Side/Bed(QC): 3 (Jonathan) Sit to Stand (QC): 3 (Jonathan) Chair/Kis-rg-[place] Xfer(QC): 3 (Jonathan) Toilet Transfer (QC): 3 (Jonathan) Car Transfer (QC): 3 (Jonathan) Does the Patient Walk: No and Walking Goal IS indicated Walk 10 feet (QC): 3 (modA) Walk 50ft with 2 Turns (QC): 88 Walk 150 ft (QC): 88 Walking 10ft on Uneven Surface: 88 1 Step (curb) (QC): 88 4 Steps (QC): 88 12 Steps (QC): 88 Picking up an Object (QC): 88 Wheel 50 feet with 2 turns (QC: 4 (SBA) Wheel 150 feet: 4 (SBA) PT Plan Problem List Problem List: Activity Tolerance, Functional Strength, Safety, Balance, Gait, Transfer, Bed Mobility, ROM Treatment/Plan Treatment Plan: Continue Plan of Care Treatment Plan: Bed Mobility, Education, Functional Activity Anitra, Functional Strength, Group Therapy, Gait, Safety, Therapeutic Exercise, Transfers Treatment Duration: Dec 21, 2021 Frequency: At least 5 of 7 days/Wk (IRF) Estimated Hrs Per Day: 1.5 hours per day Patient and/or Family Agrees t: Yes Safety Risks/Education Patient Education: Transfer Techniques, Correct Positioning, W/C Management, Safety Issues Teaching Recipient: Patient Teaching Methods: Demonstration, Discussion Response to Teaching: Reinforcement Needed Discharge Recommendations Plan Patient will perform bed mobility and transfer training, balance and endurance training, functional strengthening, stair training, gait training, and education, to improve functional mobility and independence at home. Therapy Discharge Recommendati: Scheduled Assistance, Home & Family, Post Acute PT Time/GCodes Time In: 1100 Time Out: 1200 Total Billed Treatment Time: 50 Total Billed Treatment 1 visit EVM 10' FA 40' (only charge 2 units) PT eval from [id number], OT eval from [id number], co-treat from [id number]. EDDIE MOSS PT Nov 30, 2021 12:00
[2021-11-30 12:17] VITALS: BP 147/72
--- NOTE | 2021-11-30 12:26 | ST Cognitive Linguistic Eval ---
Speech Evaluation-General Medical Diagnosis CVA Onset Date: Nov 27, 2021 Therapy Diagnosis Therapy Diagnosis: Mild/Moderate Cognitive Deficit, Mild Expressive/Receptive Language Deficit Precautions Precautions: Fall Precautions/Isolations: Fall Prevention, Standard Precautions Referral Referring Physician: Dr. Brigette Lopez Reason for Referral: Evaluation/Treatment Medical History Pertinent Medical History: Arthritis, HTN Current History The patient is an 81-year-old female with a past medical history of HTN and arthritis, who presented to the emergency department by ambulance with a chief complaint of multiple falls throughout the night and left sided weakness. Reviewed History: Yes Social History Current Living Status: Spouse Speech PLF-Current Status Prior Level of Function The patient denied prior challenges or concerns with her speech, language, or cognition. However, following a chart review, it appears the family does report dementia and memory issues in the past. Subjective The patient was seated upright in her recliner, sleeping upon entrance to her room by the clinician. The patient woke easily with a clinician verbal greeting and was agreeable to participation in the cognitive linguistic assessment. Language Eval: Auditory Comprehends Simple Yes/No Ques: Functional (The patient does display an increased response time with complex yes/no, however, remains accurate.) Indent/Objects Multiple Grant: Functional Ident/Pics in Multiple Grant: Functional Follows 1-Step Commands: Functional Follows Complex Directions: Mild Follows General Conversations: Mild Language Eval: Verbal Language Completes Spontaneous Greeting: Functional Produces Auto, Serial Info: Functional Imitates Simple Words/Phrases: Functional Word Finding: Moderate Requests Basic Needs: Functional States Basic Personal Info: Functional Expresses Complex Ideas: Moderate Language Evaluation: Reading Comprehends Single Nouns: Functional Language Evaluation: Writing Writes Short Phrases: Mild Cognitive Patient Orientation The patient was oriented to self, location, month, day of the week, date and year with use of a visual aid (in-room white board). The patient utilized the white board, independently. Objective Cognitive Domain Attention: Mild Memory: Moderate Problem Solving: Moderate Executive Functions: Moderate Visuospatial Skills: WNL Composite Severity Rating: Moderate Objective Oral Motor/Speech Production The patient does not display dysarthria or apraxia of speech at this time. The patient remains 100% intelligible in known and unknown contexts. Impression The patient demonstrated mild expressive and receptive aphasia, requiring repetition of simple, one-step instructions and increased response time for accuracy. In addition, moderate cognitive impairments are noted in the area of memory, as the same information was provided on multiple occasions throughout the treatment session. Speech Patient Assess Expression of Ideas/Wants: Frequently (2) Understanding Verbal Content: Sometimes Understands(2) Brief Interview-Mental Status: Yes Repetition of Three Words: Three (3) Temporal Orientation: Year: Correct (3) Temporal Orientation: Month: Accurate within 5 days(2) Temporal Orientation: Day: Correct (1) Recall : Wear to say "Sock": Yes, no cue required (2) Recall : Color: Yes, no cue required (2) Recall : Bed: Yes, no cue required (2) Memory/Recall Ability: Current season, That he or she is in a hsp/hsp unit Speech Short Term Goals Short Term Goals Short Term Goals 1. The patient will demonstrated 80% accuracy on memory exercises with mild clinician verbal and visual cueing. Time Frame-STG: One Week. Speech Certified Home Health Aide Goals Certified Home Health Aide Goals 1. The patient will improve cognitive linguistic skills for a safe discharge to the least restricted environment. Time Frame: Two Weeks. Speech-Plan Treatment Plan Speech Therapy Treatment Plan: Continue Plan of Care Treatment Duration: Dec 14, 2021 Frequency: Modified Program (IRF) (Three to five times per week.) Estimated Hrs Per Day: .5 hour per day Rehab Potential: Fair Pt/Family Agrees to Plan: Yes Safety Risks/Education Teaching Recipient: Patient Teaching Methods: Discussion Response to Teaching: Reinforcement Needed Education Topics Provided: Results and Recommendations, Plan of Care, Rehabilitation Program Time Speech Therapy Time In: 12:24 Speech Therapy Time Out: 12:40 Total Billed Time: 16 Billed Treatment Time 1, SRINIVASAN CUBA [facility]IZ[facility] ST Nov 30, 2021 12:26
--- NOTE | 2021-11-30 12:26 | ST Dysphagia Evaluation ---
Speech Evaluation-General Medical Diagnosis CVA Onset Date: Nov 27, 2021 Therapy Diagnosis Therapy Diagnosis: Intact Oropharyngeal Swallow Precautions Precautions: Fall Precautions/Isolations: Fall Prevention, Standard Precautions Referral Referring Physician: Dr. Brigette Lopez Reason for Referral: Evaluation/Treatment Medical History Pertinent Medical History: Arthritis, HTN Current History The patient is an 81-year-old female with a past medical history of HTN and arthritis, who presented to the emergency department by ambulance with a chief complaint of multiple falls throughout the night and left sided weakness. CXR: 11/27/21: IMPRESSION: Cardiac enlargement with central vascular congestion. Reviewed History: Yes Social History Current Living Status: Spouse Speech PLF/Current-Dysphagia Prior Level of Function The patient denied difficulty or concerns with her oropharyngeal swallow function, stating she consumes a regular diet with thin liquids at home with the absence of s/s of suspected aspiration. Per patient, "I just don't eat that much. It started a while back and just continued. I can eat, I'm just not hungry." The patient stated she does not currently consume supplements and is not interested in attempting them at this time. Subjective The patient was seated upright in her recliner, sleeping upon entrance to her room by the clinician. The patient woke easily by a verbal greeting from the c linician and was agreeable to participation in the clinical bedside swallowing evaluation, however, stated, "I'm not going to eat much." Cognitive Status Patient Orientation: Person Oral Motor Skills Dentition: Natural Current Food Consistancy: Regular, Thin Liquids Ability to Follow Directions: Good Oral Expression Ability: Mild Impairment Voice Voice Phonatory-Based Quality: Normal Voice Pitch: Normal Voice Loudness: Normal Face Facial Symmetry: Symmetrical Oral-Facial Assessment Oral-Facial Dentition: Normal Labial Seal Description: Normal Smile: Normal Lingual Protrusion: Normal Lingual ROM: Normal Lingual Strength: Normal Pharynx Velopharyngeal Move.: Normal Volitional Dry Swallow: Yes Voluntary Cough: Yes Can Clear Throat Volitionally: Yes Productive Cough: Yes Productive Throat Clear: Yes Dysphagia Evaluation Consistencies Presented: Regular, Thin Liquid (Via Straw), Pureed Mildly increased mastication time was present with solid consistencies, however, complete bolus formation and posterior bolus transfer was appreciated. Laryngeal elevation was present to palpation. Overt s/s of suspected aspiration were not present with any consistency tested. Dietary Recommendations: Regular Liquid Recommendations: Thin Recommendations: - Regular consistency diet with thin liquids, as tolerated. - Upright and alert for PO intake. - Small, single bites and sips. - Monitor for s/s of suspected aspiration with PO intake. If demonstrated, contact speech pathology. - Encourage PO intake when possible. - Consider nutritional supplementation to meet daily needs. The results and recommendations were discussed with the patient following completion of the evaluation. Oropharyngeal dysphagia is not detected at this time. If a concern remains regarding the patient's decreased PO intake, contact food service supervisor for appropriate recommendations. Dysphagia Evaluation Summary The patient displayed an intact oropharyngeal swallow. Speech-Plan Treatment Plan Speech Therapy Treatment Plan: Discontinue ST (Dysphagia only, Continue Cognitive Linguistic Skilled Treatment) Treatment Duration: Nov 30, 2021 Frequency: 1 time per week Estimated Hrs Per Day: .5 hour per day Rehab Potential: Fair Safety Risks/Education Teaching Recipient: Patient Teaching Methods: Discussion Response to Teaching: Reinforcement Needed Education Topics Provided: Results, Recommendations, Plan of Care, S/s of Suspected Aspiration Time Speech Therapy Time In: 12:08 Speech Therapy Time Out: 12:24 Total Billed Time: 16 Billed Treatment Time 1, RAUL LONDONO [facility] ST Nov 30, 2021 12:26
[2021-11-30 12:29] LABS: CHOLESTEROL 142 MG/DL (< 200); HDL CHOLESTEROL 40 MG/DL (40-60); TRIGLYCERIDES 96 MG/DL (<150); VLDL CHOLESTEROL 19 MG/DL (5-40)
--- NOTE | 2021-11-30 13:18 | Occupational Therapy Eval ---
OT Evaluation-General/PLF Medical Diagnosis Admission Date Nov 30, 2021 at 11:00 Medical Diagnosis: CVA Onset Date: Nov 27, 2021 Therapy Diagnosis Therapy Diagnosis: reduced adl status Height/Weight Height (Feet): 5 Height (Inches): 5.00 Weight (Pounds): 155 Weight (Ounces): 6.0 Precautions Precautions/Isolations: Fall Prevention, Standard Precautions Referral Physician: Brigette Lopez DO Referral Reason: Evaluation/Treatment Medical History Pertinent Medical History: Arthritis, HTN Additional Medical History Polio Current History Pt presented to hospital with L sided weakness and after having multiple falls. Found to have CVA. Per patient, she lives with her spouse in a single story home. She is a poor historian and no family present to verify accuracy of responses. She states she used a cane and that she needed help with adls "sometimes." Unsure of true level of assist needed. Reviewed History: Yes Social History Home: Single Level Current Living Status: Spouse Entry Into Home: Level Entry ADL-Prior Level of Function SCALE: Activities may be completed with or without assistive devices. 4-Ajigonzwpe-krvskcs completes the activity by him/herself with no assistance from a helper. 5-Set-up or Clean-up Assistance-helper sets up or cleans up; patient completes activity. [place] assists only prior to or following the activity. 4-Supervision or Touching Assistance-helper provides verbal cues and/or touching/steadying and/or contact guard assistance as patient completes activity. Assistance may be provided throughout the activity or intermittently. 3-Partial/Moderate Assistance-helper does LESS THAN HALF the effort. [place] lifts, holds or supports trunk or limbs, but provides less than half the effort. 2-Substantial/Maximal Assistance-helper does MORE THAN HALF the effort. [place] lifts or holds trunk or limbs and provides more than half the effort. 4-Bgpxztxoe-bptzhm does ALL the effort. Patient does none of the effort to complete the activity. Or, the assistance of 2 or more helpers is required for the patient to complete the activity. If activity was not attempted, code reason: 7-Patient Refused. 9-Not Applicable-not attempted and the patient did not perform the activity before the current illness, exacerbation or injury. 10-Not Attempted due to Environmental Limitations-(lack of equipment, weather restraints, etc.). 88-Not Attempted due to Medical Conditions or Safety Concerns. Self Care: Unknown Functional Cognition: Unknown DME/Equipment: Bath Chair, Grab Bars, Shower OT Current Status Subjective Pt denies pain, requires simplification and redirection back to task at times. Co-treat with PT for part of session secondary to poor safety awareness, impaired strength, endurance, sitting/standing balance, high fall risk, and need of 2 skilled clinicians to progress indep and safety with adls and functional mobility. Appearance Pt left sitting in recliner, all needs within reach. Mental Status/Objective Patient Orientation: Person Attachments: Moore Catheter, IV Current Glasses/Contacts: Yes Upper Extremity ROM R shoulder ~150 degrees AROM R elbow-distally: WNL L shoulder: ~100 degrees AROM, poor coordination, drifting notable. ~150 degrees PROM L elbow: 10-110 degrees, impaired coodination Pt is able to perform full finger opposition but with significant time Upper Extremity Strength RUE: 3/5 grossly LUE: 2+/5 ADL-Treatment Eating (QC): 3 Oral Hygiene (QC): 3 Shower/Bathe Self (QC): 1 (per clinical judgment, need of 2 people) Upper Body Dressing (QC): 2 Lower Body Dressing (QC): 1 On/Off Footwear (QC): 1 Toileting Hygiene (QC): 1 Pt supine in bed at OT arrival. Max a to sit EOB. Poor sitting balance needing intermittent min-max a to sustain upright posture. When handed underwear, pt immediately bends at waist to attempt to thread over R foot. Mod a needed for safety and balance. While bending, pt unable to lift foot off floor. No attention/awareness to L side despite several tactile and verbal cues from therapist. Dependent to thread BLE's into underwear, pants, and to don socks. Max a to stand and maintain standing balance. 2nd person attempts to pull clothing up to waist, yet pt incontinent of stools. She was returned to supine. She was able to roll L with min-mod a, requires max a to roll R. Dependent for mitch care and clothing management in supine. Education on yesenia technique, max cues, and max a to don shirt due to L side neglect, impaired Ralph shoulder ROM, sitting balance, sequencing, and strength. Stand pivot from bed to w/c with max a. Grooming tasks performed at w/c level. HOHA to hold toothpaste with L hand as pt twisted lid on/off with R and to squeeze toothpaste onto brush. Pt able to brush all quadrants of her mouth with use of R hand. 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 OT focusing on positioning of LUE, upright posture, and safety as PT focuses on balance and posture. While standing, hips asymmetrical with L being significantly higher than the Right. Pt reports this is from when she had polio as a child. Poor standing tolerance, needing several sitting rest breaks. Flexed posture, tactile and verbal cues to adjust. Pt able to follow cues but unable to sustain throughout. Education OT Patient Education: Correct positioning, Disease process, Energy conservation, Exercise program, Modified ADL techniques, Progress toward Goal/Update tx plan, Purpose of tx/functional activities, Reviewed precautions, Rehab process, Safety issues, Transfer techniques, W/C management Teaching Recipient: Patient Teaching Methods: Demonstration, Discussion Response to Teaching: Verbalize Understanding, Return Demonstration, Reinforcement Needed OT Short Term Goals Short Term Goals Time Frame: Dec 14, 2021 Eatin Oral hygiene: 4 Toileting hygiene: 2 Shower/bathe self: 2 Upper body dressin Lower body dressin Putting on/taking off footwear: 2 OT Duplication Specialist Goals Custodial Goals Time Frame: Dec 28, 2021 Eating (QC): 5 Oral Hygiene (QC): 6 Toileting Hygiene (QC): 4 Shower/Bathe Self (QC): 4 Upper Body Dressing (QC): 4 Lower Body Dressing (QC): 4 On/Off Footwear (QC): 4 1=Demonstrate adherence to instructed precautions during ADL tasks. 2=Patient will verbalize/demonstrate understanding of assistive devices/modifications for ADL. 3=Patient will improve strength/tolerance for activity to enable patient to perform ADL's. OT Education/Plan Problem List/Assessment Assessment: Decreased Activ Tolerance, Decreased Safety Aware, Decreased UE Strength, Dependent Transfers, Impaired Bed Mobility, Impaired Cognition, Impaired Coordination, Impaired Funct Balance, Impaired I ADL's, Impaired Self- Care Skills, Restricted Funct UE ROM, Visual-Perceptual Deficit Discharge Recommendations Plan/Recommendations: Continue POC Therapy Discharge Recommendati: Post Acute OT Treatment Plan/Plan of Care Treatment,Training & Education: Yes Patient would benefit from OT for education, treatment and training to promote independence in ADL's, mobility, safety and/or upper extremity function for ADL's. Plan of Care: ADL Retraining, Caregiver Training, Cognitive Retraining, Functional Mobility, Group Exercise/Act as Ind, UE Funct Exercise/Act, UE Neuromus Re-Ed/Coord, Visual/Perceptual Retrain, W/C Management Training Treatment Duration: Dec 28, 2021 Frequency: At least 5 of 7 days/Wk (IRF) Estimated Hrs Per Day: 1.5 hours per day (75-90 min/day ) Agreement: Yes Rehab Potential: Fair Time/GCodes Start Time: 11:10 Stop Time: 12:00 Total Time Billed (hr/min): 50 Billed Treatment Time 1 visit EVH (10 min) ADLx2 (40 min) (only charge 2 units) My Edwards OT Nov 30, 2021 13:18
--- NOTE | 2021-11-30 13:37 | Physical Therapy Daily Note ---
PT Daily Note-Current Subjective Patient in recliner pre tx, agrees to PT, has no complaints of pain. Will be co-treating with OT due to poor patient mobility, strength, endurance, left hemiparesis, severe debility, coordinate UE and LE during activity, safety and reduce risk of falls. Appearance Patient in bed post tx with nurse call, phone, tray, all needs met. Mental Status Patient Orientation: Person, Place, Situation Attachments: Moore Catheter Transfers SCALE: Activities may be completed with or without assistive devices. 1-Oflzvjkzpx-vthgsqs completes the activity by him/herself with no assistance from a helper. 5-Set-up or Clean-up Assistance-helper sets up or cleans up; patient completes activity. [place] assists only prior to or following the activity. 4-Supervision or Touching Assistance-helper provides verbal cues and/or touching/steadying and/or contact guard assistance as patient completes activity. Assistance may be provided throughout the activity or intermittently. 3-Partial/Moderate Assistance-helper does LESS THAN HALF the effort. [place] lifts, holds or supports trunk or limbs, but provides less than half the effort. 2-Substantial/Maximal Assistance-helper does MORE THAN HALF the effort. [place] lifts or holds trunk or limbs and provides more than half the effort. 1-Uhavzjcid-vedaxl does ALL the effort. Patient does none of the effort to complete the activity. Or, the assistance of 2 or more helpers is required for the patient to complete the activity. If activity was not attempted, code reason: 7-Patient Refused. 9-Not Applicable-not attempted and the patient did not perform the activity before the current illness, exacerbation or injury. 10-Not Attempted due to Environmental Limitations-(lack of equipment, weather restraints, etc.). 88-Not Attempted due to Medical Conditions or Safety Concerns. Roll Left & Right (QC): 2 Sit to Lying (QC): 2 Sit to Stand (QC): 2 Chair/Lsu-ko-Emese Xfer(QC): 2 Wheelchair Training Does the Pt Use a Wheelchair?: Yes Wheel 50 ft with 2 turns (QC): 3 Type of Wheelchair: Manual Patient propels using right arm and leg, has difficulty using right foot to steer. Neuromuscular Practiced trunk control and stability, leaning side to side and forward/back, reaching for cones (transferred to therapy table for this) Treatments PT performed bed mobility and transfers, WC mobility, trunk strengthening, OT performed UE positioning and safety during activity, assisted with safety cues and reaching during trunk activity. Assessment Current Status: Fair Progress slightly improved sitting balance PT Short Term Goals Short Term Goals Time Frame: Dec 07, 2021 Roll Left & Right: 3 (modA) Sit to lyin (moA) Lying to sitting on side of be: 3 (modA) Sit to stand: 3 (modA) Chair/wdw-lp-lntfx transfer: 3 (modA) PT Court Officer Goals Court Officer Goals PT Court Officer Goals Time Frame: Dec 21, 2021 Roll Left & Right (QC): 3 (Jonathan) Sit to Lying (QC): 3 (Jonathan) Lying-Sitting on Side/Bed(QC): 3 (Jonathan) Sit to Stand (QC): 3 (Jonathan) Chair/Axs-oq-Owhnb Xfer(QC): 3 (Jonathan) Toilet Transfer (QC): 3 (Jonathan) Car Transfer (QC): 3 (Jonathan) Does the Patient Walk: No and Walking Goal IS indicated Walk 10 feet (QC): 3 (modA) Walk 50ft with 2 Turns (QC): 88 Walk 150 ft (QC): 88 Walking 10ft on Uneven Surface: 88 1 Step (curb) (QC): 88 4 Steps (QC): 88 12 Steps (QC): 88 Picking up an Object (QC): 88 Wheel 50 feet with 2 turns (QC: 4 (SBA) Wheel 150 feet: 4 (SBA) PT Plan Problem List Problem List: Activity Tolerance, Functional Strength, Safety, Balance, Gait, Transfer, Bed Mobility, ROM Treatment/Plan Treatment Plan: Continue Plan of Care Treatment Plan: Bed Mobility, Education, Functional Activity Anitra, Functional Strength, Group Therapy, Gait, Safety, Therapeutic Exercise, Transfers Treatment Duration: Dec 21, 2021 Frequency: At least 5 of 7 days/Wk (IRF) Estimated Hrs Per Day: 1.5 hours per day Patient and/or Family Agrees t: Yes Safety Risks/Education Patient Education: Transfer Techniques, Correct Positioning, Safety Issues Teaching Recipient: Patient Teaching Methods: Demonstration, Discussion Response to Teaching: Reinforcement Needed Time/GCodes Time In: 1300 Time Out: 1325 Total Billed Treatment Time: 25 Total Billed Treatment 1 visit FA 25' co-treated for 25' EDDIE MOSS PT Nov 30, 2021 13:37
--- NOTE | 2021-11-30 13:42 | Occupational Ther Daily Note ---
OT Current Status-Daily Note Subjective Pt alert, sitting in recliner. Pt agrees to therapy. No c/o pain. Mental Status/Objective Patient Orientation: Person Attachments: Moore Catheter, IV ADL-Treatment Therapy Code Descriptions/Definitions Functional [place] Measure: 0=Not Assessed/NA 4=Minimal Assistance 1=Total Assistance 5=Supervision or Setup 2=Maximal Assistance 6=Modified [place] 3=Moderate Assistance 7=Complete IndependenceSCALE: Activities may be completed with or without assistive devices. 7-Odyhnvjsmj-jbdpcuz completes the activity by him/herself with no assistance from a helper. 5-Set-up or Clean-up Assistance-helper sets up or cleans up; patient completes activity. [place] assists only prior to or following the activity. 4-Supervision or Touching Assistance-helper provides verbal cues and/or touching/steadying and/or contact guard assistance as patient completes activity. Assistance may be provided throughout the activity or intermittently. 3-Partial/Moderate Assistance-helper does LESS THAN HALF the effort. [place] lifts, holds or supports trunk or limbs, but provides less than half the effort. 2-Substantial/Maximal Assistance-helper does MORE THAN HALF the effort. [place] lifts or holds trunk or limbs and provides more than half the effort. 2-Xtkqwshlk-fotrsc does ALL the effort. Patient does none of the effort to complete the activity. Or, the assistance of 2 or more helpers is required for the patient to complete the activity. If activity was not attempted, code reason: 7-Patient Refused. 9-Not Applicable-not attempted and the patient did not perform the activity before the current illness, exacerbation or injury. 10-Not Attempted due to Environmental Limitations-(lack of equipment, weather restraints, etc.). 88-Not Attempted due to Medical Conditions or Safety Concerns. Other Treatment OT/PT cotreat([id number]), skills of 2 clinicians required due to poor patient mobility, strength, endurance, poor sitting and standing balance, severe debility, coordinate UE and LE during activity, safety and reduce risk of falls. OT focusing on L UE placement during all mobility and dynamic balance while PT focusing on w/c mobility, transfers and dynamic balance. Pt follows 1 step directions with min cues to stay focused on tasks. Pt sitting on therapy mat table with close SBA then working on leaning side to side, forward/backward and grasping/releasing cones at varying heights in front/side of pt. No significant LOB during sitting balance task. See PT notes for transfers and w/c mobility. Pt requires assist x2 to transfer from surface to surface for safety. Assist x2 for bed mobility. After session, pt lying in bed with call light/phone in reach. All needs met in room. OT Nutrition Consultant Goals Detention Goals Eating (QC): 5 Oral Hygiene (QC): 6 Toileting Hygiene (QC): 4 Shower/Bathe Self (QC): 4 Upper Body Dressing (QC): 4 Lower Body Dressing (QC): 4 On/Off Footwear (QC): 4 1=Demonstrate adherence to instructed precautions during ADL tasks. 2=Patient will verbalize/demonstrate understanding of assistive devices/modifications for ADL. 3=Patient will improve strength/tolerance for activity to enable patient to perform ADL's. OT Education/Plan Problem List/Assessment Assessment: Decreased Activ Tolerance, Decreased Safety Aware, Dependent Transfers, Impaired Bed Mobility, Impaired Cognition, Impaired Coordination, Impaired Funct Balance, Impaired Self-Care Skills, Restricted Funct UE ROM, Visual-Perceptual Deficit Discharge Recommendations Plan/Recommendations: Continue POC Treatment Plan/Plan of Care Treatment,Training & Education: Yes Patient would benefit from OT for education, treatment and training to promote independence in ADL's, mobility, safety and/or upper extremity function for ADL's. Plan of Care: ADL Retraining, Caregiver Training, Cognitive Retraining, Functional Mobility, Group Exercise/Act as Ind, UE Funct Exercise/Act, UE N euromus Re-Ed/Coord, Visual/Perceptual Retrain, W/C Management Training Treatment Duration: Dec 28, 2021 Frequency: Modified Program (IRF) Estimated Hrs Per Day: 1 hour per day (75-90 min/day) Agreement: Yes Rehab Potential: Fair Time/GCodes Start Time: 13:00 Stop Time: 13:25 Total Time Billed (hr/min): 25 Billed Treatment Time 1 visit-FA 1 (10 min) NM 1 (15 min) co-treat with PT 25 min ROHIT BENTLEY Nov 30, 2021 13:42
[2021-11-30] MEDS: inSUlin ASPART (NovoLOG) 1 UNIT/0.01 ML (CHARGE PER UNIT) SQ SCH ×2 (17:14→21:26)
[2021-11-30 20:44] VITALS: BP 146/82
[2021-11-30] MEDS: ZOLPIDEM 5 MG (AMBIEN) TAB PO SCH (20:48)
[2021-11-30] MEDS: APIXABAN 2.5 MG (ELIQUIS) TABLET PO SCH (20:48)
[2021-11-30] MEDS ORDERED: SENNA W/DOCUSATE (SENOKOT S) TABLET PO SCH (21:00)
[2021-11-30] MEDS ORDERED: polyethylene glycoL POWDER 17 GM (MIRALAX) PACK PO SCH (21:00)
[2021-11-30] MEDS ORDERED: DOCUSATE SODIUM 100 MG (COLACE) CAP PO SCH (21:00)
[2021-11-30] MEDS: SENNOSIDES 8.6 MG (SENOKOT) TAB PO SCH (21:26)
[2021-11-30] MEDS: DOCUSATE SODIUM 100 MG (COLACE) CAP PO SCH (21:26)
[2021-12-01 06:07] LABS: BASOPHILS % (AUTO) 0 % (0-10); EOSINOPHILS # (AUTO) 0.3 10^3/uL (0.0-0.3); EOSINOPHILS % (AUTO) 4 % (0-10); HEMATOCRIT 43 % (35-52); HEMOGLOBIN 13.5 g/dL (11.5-16.0); LYMPHOCYTES # (AUTO) 1.2 10^3/uL (1.0-4.0); LYMPHOCYTES % (AUTO) 14 % (12-44); MEAN CORPUSCULAR HEMOGLOBIN 27 pg (25-34); MEAN CORPUSCULAR HGB CONC 32 g/dL (32-36); MEAN CORPUSCULAR VOLUME 85 fL (80-99); MONOCYTES # (AUTO) 0.7 10^3/uL (0.0-1.0); MONOCYTES % (AUTO) 8 % (0-12); NEUTROPHILS # (AUTO) 6.3 10^3/uL (1.8-7.8); NEUTROPHILS % (AUTO) 74 % (42-75); PLATELET COUNT 363 10^3/uL (130-400); WHITE BLOOD COUNT 8.5 10^3/uL (4.3-11.0)
[2021-12-01 06:22] LABS: ALBUMIN 3.5 GM/DL (3.2-4.5)
[2021-12-01 06:23] LABS: POTASSIUM 4.2 MMOL/L (3.6-5.0)
[2021-12-01 06:24] LABS: CALCIUM 9.6 MG/DL (8.5-10.1)
[2021-12-01 06:25] LABS: TOTAL PROTEIN 6.2 GM/DL (6.4-8.2)
[2021-12-01 06:27] LABS: BILIRUBIN,TOTAL 0.5 MG/DL (0.1-1.0)
[2021-12-01 06:29] LABS: CREATININE SERUM 1.02 MG/DL (0.60-1.30)
[2021-12-01] MEDS: inSUlin ASPART (NovoLOG) 1 UNIT/0.01 ML (CHARGE PER UNIT) SQ SCH (06:29)
--- NOTE | 2021-12-01 07:03 | Individualized Plan of Care ---
Individualized Plan of Care Rehab Nursing IPOC Order Admission Date Nov 30, 2021 at 11:00 Current Orders Orders Admission Order(Inpt,Obs,Sdc) (11/30/21 10:54) Vital Signs: Per Unit Policy ( 08,16,00 (11/30/21 10:54) Loi Cook (11/30/21 10:54) Sequential Compression Device (11/30/21 10:54) Joint Cutter Machine-Inpt Rehab Con (11/30/21 10:54) Rehab Nursing Orders-Ipoc (11/30/21 10:54) Physical Therapy Rehab Orders (11/30/21 10:54) Occupational Therapy Rehab Ord (11/30/21 10:54) Speech Therapy Rehab Orders (11/30/21 10:54) Cbc With Automated Diff (12/01/21 06:00) Comprehensive Metabolic Panel (12/01/21 06:00) Precautions (Aru) (11/30/21 10:54) Weekly Weight WEEK (11/30/21 10:54) Rehab-Intensity Of Therapy (11/30/21 10:54) Initiate Admission Nursing Pro .admission (11/30/21 10:54) Acetaminophen Tablet/Caplet (Tylenol T (11/30/21 11:00) Code/Resuscitation (11/30/21 10:54) Initiate Admission Nursing Pro .admission (11/30/21 10:54) Lipid Panel (11/30/21 11:53) Code/Resuscitation (11/30/21 11:53) Catheter(Urinary) Insert & Ass 03,15 (11/30/21 11:53) Eicu: Use For Provider (11/30/21 11:53) Incentive Spirometry (Nursing) Q2H (11/30/21 11:53) Initiate Admission Nursing Pro .admission (11/30/21 11:53) Nursing Communication (Order) (11/30/21 11:53) Sequential Compression Device (11/30/21 11:53) Telemetry (11/30/21 11:53) General/Regular (11/30/21 Lunch) Alprazolam Tablet (Xanax Tablet) (11/30/21 12:00) Albuterol Pre-Mix Nebs (Rt) (Proventil (11/30/21 12:00) Apixaban Tablet (Eliquis Tablet) (11/30/21 21:00) Aspirin Tablet (Aspirin Tablet) (12/01/21 09:00) Atorvastatin Tablet (Lipitor Tablet) (12/01/21 09:00) Baclofen Tablet (Lioresal Tablet) (11/30/21 12:00) Diphenhydramine Injection (Benadryl Inje (11/30/21 12:00) Diphenhydramine Tablet (Benadryl Tablet) (11/30/21 12:00) Docusate Sodium Capsule (Colace Capsule) (11/30/21 21:00) Bisacodyl Suppository (Dulcolax Supposit (11/30/21 12:00) Lactulose Oral Solution (Enulose Oral So (11/30/21 12:00) Lorazepam Injection (Ativan Injection) (11/30/21 12:00) Melatonin Tablet (Melatonin Tablet) (11/30/21 12:00) Magnesium Hydroxide Oral Susp (Mom Oral (11/30/21 12:00) Polyethylene Glycol Powder Pkt (Miralax (11/30/21 12:00) Morphine Injection (Morphine Injection (11/30/21 12:00) Antacid Suspension (Mylanta Suspension (11/30/21 12:00) Patient May Use Own Meds, All (Patient M (11/30/21 12:00) Sennosides Tablet (Senokot Tablet) (11/30/21 21:00) Sodium Chloride Flush (Catheter Flush Sy (11/30/21 12:00) Calcium Carbonate Chew Tablet (Antacid C (11/30/21 12:00) Acetaminophen Tablet/Caplet (Tylenol T (11/30/21 12:00) Water (Sterile) For Injection (Sterile W (11/30/21 12:00) Ziprasidone Injection (Geodon Injection) (11/30/21 12:00) Ondansetron Injection (Zofran Injectio (11/30/21 12:00) Ondansetron Oral Dissolve Tab (Zofran (11/30/21 12:00) Zolpidem Tablet (Ambien Tablet) (11/30/21 21:00) Amlodipine Tablet (Norvasc Tablet) (12/01/21 09:00) Insulin Aspart (Novolog) (Novolog (Charg (11/30/21 16:00) Tramadol Tablet (Ultram Tablet) (11/30/21 12:00) Bedside Dysphagia Evaluation (11/30/21 11:53) Consult Cardiology (11/30/21 11:53) Irf Req Eval/Acute Rehab (11/30/21 11:53) Incentive Spirometry Initial (11/30/21 11:53) Mat Initiate Protocol (11/30/21 11:53) Oxygen Delivery Set Up (11/30/21 11:53) Pt Evaluate/Treat Request (11/30/21 11:53) Request Ot Evaluate & Treat (11/30/21 11:53) Request Speech/Language Servic (11/30/21 11:53) Svn Small Volume Nebulizer (11/30/21 11:53) Telemetry Nursing Assessment ( (11/30/21 11:53) Svn Small Volume Nebulizer (11/30/21 11:53) Incentive Spirometry (Nursing) Q2H (11/30/21 11:53) Oxygen-Administer 07,19 (11/30/21 11:53) Patient Visit (11/30/21 ) Speech Sound Lang Comp (11/30/21 ) Treat. Speech/Lang/Voice (11/30/21 ) Dysphagia Evaluation Std (11/30/21 ) Dysphagia Therapy (11/30/21 ) Patient Visit (11/30/21 ) Pt Eval Moderate Complexity (11/30/21 ) Functional Activities, Ea 15 (11/30/21 ) Catheter(Urinary) Discontinue (12/01/21 05:59) Patient Visit (12/01/21 ) Functional Activities, Ea 15 (12/01/21 ) Patient Visit (12/01/21 ) Treat. Speech/Lang/Voice (12/01/21 ) Rehab Nursing Orders: Ongoing Assess. of Cognitive Status, Ongoing Assess. of Function Status, Bladder Management, Bladder Scan, Bladder Training, Bowel Management, Bowel Training, Disease Management & Educaiton, DVT Prophylaxis, Fall Prevention, Fluid/Electrolyte/Nutrition Mgmt, Infection Prevention, Medication Management & Education, Management of Risks & Complications, Management of Skin Intergrity, Nutrition Management, Pain Management, Patient/Family Support, Safety Management Intensity of Therapy to be met Patient to be seen: Min.3h per day/5 of 7d PT IPOC Problem List: Activity Tolerance, Functional Strength, Safety, Balance, Gait, Transfer, Bed Mobility, ROM Treatment Plan: Continue Plan of Care Bed Mobility, Education, Functional Activity Anitra, Functional Strength, Group Therapy, Gait, Safety, Therapeutic Exercise, Transfers Treatment Duration: Dec 21, 2021 Frequency: At least 5 of 7 days/Wk (IRF) Estimated Hrs Per Day: 1.5 hours per day OT IPOC Problems: Decreased Activ Tolerance, Decreased Safety Aware, Dependent Transfers, Impaired Bed Mobility, Impaired Cognition, Impaired Coordination, Impaired Funct Balance, Impaired Self-Care Skills, Restricted Funct UE ROM, Visual-Perceptual Deficit OT Treatment, Training and Edu: Yes Plan of Care: ADL Retraining, Caregiver Training, Cognitive Retraining, Functional Mobility, Group Exercise/Act as Ind, UE Funct Exercise/Act, UE Neuromus Re-Ed/Coord, Visual/Perceptual Retrain, W/C Management Training Treatment Duration: Dec 28, 2021 Frequency: Modified Program (IRF) Estimated Hrs Per Day: 1 hour per day (75-90 min/day) ST IPOC Speech Therapy Treatment Plan: Continue Plan of Care Treatment Duration: Dec 14, 2021 Frequency: Modified Program (IRF) (Three to five times per week.) Estimated Hrs Per Day: .5 hour per day Joint Cutter Machine/Case Mgmt Joint Cutter Machine/Case Managemen: Discharge Planning Dietitian/Disability Services Coordinator Dietitian/Disability Services Coordinator to monitor nutritional status and make changes and/or recommendations as needed and work with speech pathology on dietary upgrades as the occur. Physician IPOC Medical Issues being managed closely and that require the 24 hour availability of a physician: Recent catastrophic CVA will require close monitoring of BP and new OAC for bleeding risks in order to use assistive devices in order to return home Medical Issues: Bowel/Bladder Function, DVT Prophylaxis, Falls Precautions, Fluid/Electrolyte/Nutrition Balance, Infection Protection, Pain Management Brief Synthesis of Preadmission Screen, Post-Admission Evaluation, and Therapy Evaluations: PT OT will focus on regaining function in order to return home to live independently with spouse with use of assistive devices Medical Prognosis: Fair Anticipated Length of Stay: 14 days LUIS FELIPE COREAS DO Dec 01, 2021 07:03
--- NOTE | 2021-12-01 07:03 | PM&R Progress Note ---
Subjective HPI/CC On Admission Date Seen by Provider: Dec 01, 2021 Time Seen by Provider: 11:00 Subjective/Events-last exam 12/01/21: Pt had her spencer taken out Incontinent of urine Labs look okay Discontinue telemetry because it is afib Participating with all therapies Review of Systems General: Fatigue, Malaise Neurological: Weakness, Incoordination Objective Exam Vital Signs Vital Signs Date Time Temp Pulse Resp B/P (MAP) Pulse Ox O2 Delivery O2 Flow Rate FiO2 12/01/21 20:49 95 Room Air 12/01/21 19:35 36.2 103 17 144/76 (98) Capillary Refill : General Appearance: No Apparent Distress, WD/WN, Chronically ill, Obese HEENT: PERRL/EOMI, Normal ENT Inspection, Pharynx Normal Neck: Full Range of Motion, Normal Inspection, Non Tender, Supple, Carotid Bruit Respiratory: Chest Non Tender, Lungs Clear, Normal Breath Sounds, No Accessory Muscle Use, No Respiratory Distress Cardiovascular: Regular Rate, Rhythm, No Edema, No Gallop, No JVD, No Murmur, Normal Peripheral Pulses Gastrointestinal: Normal Bowel Sounds, No Organomegaly, No Pulsatile Mass, Non Tender, Soft Back: Normal Inspection, No CVA Tenderness, No Vertebral Tenderness Extremity: Normal Capillary Refill, Normal Inspection, Normal Range of Motion, Non Tender, No Calf Tenderness, No Pedal Edema Neurologic/Psychiatric: Alert, Oriented x3, Normal Mood/Affect, bronze plater II-XII Norm as Tested, Abnormal Gait, Facial Droop, Motor Weakness (Left-sided weakness 1/5 upper lower extremity) Skin: Normal Color, Warm/Dry Lymphatic: No Adenopathy Results/Procedures Lab Laboratory Tests 12/01/21 05:31 Patient resulted labs reviewed. FIM Transfers Therapy Code Descriptions/Definitions Functional [place] Measure: 0=Not Assessed/NA 4=Minimal Assistance 1=Total Assistance 5=Supervision or Setup 2=Maximal Assistance 6=Modified [place] 3=Moderate Assistance 7=Complete IndependenceSCALE: Activities may be completed with or without assistive devices. 9-Lhhxvudfpm-vbxczdc completes the activity by him/herself with no assistance from a helper. 5-Set-up or Clean-up Assistance-helper sets up or cleans up; patient completes activity. [place] assists only prior to or following the activity. 4-Supervision or Touching Assistance-helper provides verbal cues and/or touching/steadying and/or contact guard assistance as patient completes activity. Assistance may be provided throughout the activity or intermittently. 3-Partial/Moderate Assistance-helper does LESS THAN HALF the effort. [place] lifts, holds or supports trunk or limbs, but provides less than half the effort. 2-Substantial/Maximal Assistance-helper does MORE THAN HALF the effort. [place] lifts or holds trunk or limbs and provides more than half the effort. 2-Izildorwo-iavpjc does ALL the effort. Patient does none of the effort to complete the activity. Or, the assistance of 2 or more helpers is required for the patient to complete the activity. If activity was not attempted, code reason: 7-Patient Refused. 9-Not Applicable-not attempted and the patient did not perform the activity before the current illness, exacerbation or injury. 10-Not Attempted due to Environmental Limitations-(lack of equipment, weather restraints, etc.). 88-Not Attempted due to Medical Conditions or Safety Concerns. Roll Left to Right (QC): 2 Sit to Lying (QC): 2 Sit to Stand (QC): 2 Chair/Luq-cs-Uwdun Xfer(QC): 2 Car Transfer (QC): 2 Gait Training Does the Patient Walk?: No and Walking Goal IS indicated Walk 10 feet (QC): 88 Walk 50 ft with 2 Turns(QC): 88 Walk 150 ft (QC): 88 Walking 10ft/uneven surface-QC: 88 Wheelchair Training Does the Pt Use a Wheelchair?: Yes Distance: 50'x2 Wheel 50 ft with 2 turns (QC): 3 Wheel 150 ft (QC): 88 Type of Wheelchair: Manual Stair Training 1 Step (curb) (QC): 88 4 Steps (QC): 88 12 Steps (QC): 88 Balance Picking up an Object (QC): 88 ADL-Treatment Eating (QC): 3 Oral Hygiene (QC): 3 Shower/Bathe Self (QC): 1 (per clinical judgment, need of 2 people) Upper Body Dressing (QC): 2 Lower Body Dressing (QC): 1 On/Off Footwear (QC): 1 Toileting Hygiene (QC): 1 Assessment/Plan Assessment and Plan Assess & Plan/Chief Complaint Assessment: CVA subacute not a tPa candidate New atrial fibrillation placed on oral anticoagulation and consult cardiology 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 Confusion now resolved Expressive aphasia much improved HTN HLP Chronic pain Osteoarthritis Plan: Oral anticoagulation Aggressive rehab Supportive care Fall risk 12/01/21: Supportive care Monitor BP (1) Cerebrovascular accident due to cerebral artery occlusion Status: Acute (2) Hypertension Status: Chronic (3) Osteoarthritis Status: Chronic (4) Insomnia Status: Chronic (5) Atrial fibrillation Status: Acute (6) Overactive bladder Status: Chronic (7) History of bowel resection Status: Chronic LUIS FELIPE COREAS DO Dec 01, 2021 07:03
[2021-12-01 07:40] VITALS: BP 168/89
[2021-12-01] MEDS: APIXABAN 2.5 MG (ELIQUIS) TABLET PO SCH ×2 (09:06→20:38)
[2021-12-01] MEDS: amLODIPine 2.5MG (NORVASC) TAB PO SCH (09:06)
[2021-12-01] MEDS: ASPIRIN 325 MG (5 GR) TABLET PO SCH (09:06)
[2021-12-01] MEDS: SENNOSIDES 8.6 MG (SENOKOT) TAB PO SCH ×2 (09:06→21:36)
[2021-12-01] MEDS: DOCUSATE SODIUM 100 MG (COLACE) CAP PO SCH ×2 (09:08→21:36)
--- NOTE | 2021-12-01 10:03 | Speech Therapy Daily Note ---
Speech Daily Progress Note Subjective Date Seen by Provider: Dec 01, 2021 Time Seen by Provider: 09:30 The patient was seated upright in bed, awake and alert upon entrance to her room by the clinician. The patient greeted the clinician appropriately and was agreeable to participation in the cognitive linguistic treatment session. The patient asked on three occasions throughout the session the clinician's role. Each time the role of the CHIEF MERCHANDISING OFFICER in the rehabilitation process was thoroughly explained, however, recall by the patient was not displayed. Objective The patient completed the SLUMS assessment on this date with a result of +16/30 correlating to a score of "dementia." The patient displayed great difficulty in the area of delayed recall, word-finding, and problem solving. The result was thoroughly discussed with the patient, who stated, "I'm surprised it wasn't better." The patient continues to deny baseline memory deficits regardless of documentation placed in the patient's chart by family members regarding their concerns with her "dementia." The patient requires frequent redirection to task throughout the skilled session and perseverates on her rehabilitation schedule. Assessment Assessment Current Status: Poor Progress Treatment Plan Continue Plan of Care Speech Short Term Goals Short Term Goals Short Term Goals 1. The patient will demonstrated 80% accuracy on memory exercises with mild clinician verbal and visual cueing. Time Frame-STG: One Week. Speech Acid Patroller Goals Fpc Goals 1. The patient will improve cognitive linguistic skills for a safe discharge to the least restricted environment. Time Frame: Two Weeks. Speech-Plan Treatment Plan Speech Therapy Treatment Plan: Continue Plan of Care Treatment Duration: Dec 14, 2021 Frequency: Modified Program (IRF) (Three to five times per week.) Estimated Hrs Per Day: .5 hour per day Rehab Potential: Fair Safety Risks/Education Teaching Recipient: Patient Teaching Methods: Discussion Response to Teaching: Reinforcement Needed Education Topics Provided: Results of SLUMS Time Speech Therapy Time In: 09:30 Speech Therapy Time Out: 10:00 Total Billed Time: 30 Billed Treatment Time Chuck TABSRINI CED T[place]O Dec 01, 2021 10:03
--- NOTE | 2021-12-01 12:16 | Physical Therapy Daily Note ---
PT Daily Note-Current Subjective Pt working w/OT & Wound Care Nurse upon arrival. Pt agrees to PT. Pain Location: No Pain Reported Mental Status Patient Orientation: Person, Confused Transfers SCALE: Activities may be completed with or without assistive devices. 3-Ezdhcwbexf-epgrkll completes the activity by him/herself with no assistance from a helper. 5-Set-up or Clean-up Assistance-helper sets up or cleans up; patient completes activity. [place] assists only prior to or following the activity. 4-Supervision or Touching Assistance-helper provides verbal cues and/or touching/steadying and/or contact guard assistance as patient completes activity. Assistance may be provided throughout the activity or intermittently. 3-Partial/Moderate Assistance-helper does LESS THAN HALF the effort. [place] lifts, holds or supports trunk or limbs, but provides less than half the effort. 2-Substantial/Maximal Assistance-helper does MORE THAN HALF the effort. [place] lifts or holds trunk or limbs and provides more than half the effort. 7-Qmmhyfegw-mgnbgz does ALL the effort. Patient does none of the effort to complete the activity. Or, the assistance of 2 or more helpers is required for the patient to complete the activity. If activity was not attempted, code reason: 7-Patient Refused. 9-Not Applicable-not attempted and the patient did not perform the activity before the current illness, exacerbation or injury. 10-Not Attempted due to Environmental Limitations-(lack of equipment, weather restraints, etc.). 88-Not Attempted due to Medical Conditions or Safety Concerns. Sit to Stand (QC): 3 Chair/Izc-cx-Nbjbl Xfer(QC): 3 Weight Bearing Full Weight Bearing Full Weight Bearing Exercises Seated Therapy Exercises: Sit to stand Seated Reps: 5 Treatments Co-treat with PT([id number]), skills of 2 clinicians required to decrease fall risk, increase all mobility and ADLs. PT focusing on transfers, mobility and standing while OT focusing on ADLs, L UE placement during functional mobility a nd adjusting stance during standing at parallel bars. Pt agrees to shower. Mod A for supine to EOB. Sat EOB with close SBA for safety. Max A for SPT from surface to surface. Max A x2 for toileting to cleanse and manipulate clothing. Transferred to rolling shower chair, max A SPT and assist 2nd person for safety. With cues and set up, pt able to bath all areas except lower legs/feet while sitting on rolling shower chair with cutout. Max A for donning/doffing upper body clothing. Assist x2 for lower body clothing. Mod A to slide on shoes. Nrsg needed pt back in bed for bladder scan. Max A for SPT to bed then mod A x2 for EOB to supine. Assessment Current Status: Fair Progress Pt is often confused and needs short, concise VC to redirect. PT Short Term Goals Short Term Goals Time Frame: Dec 07, 2021 Roll Left & Right: 3 (modA) Sit to lyin (moA) Lying to sitting on side of be: 3 (modA) Sit to stand: 3 (modA) Chair/qfh-hf-cohwz transfer: 3 (modA) PT Longterm Goals Chief Merchandising Officer Goals PT Chief Merchandising Officer Goals Time Frame: Dec 21, 2021 Roll Left & Right (QC): 3 (Jonathan) Sit to Lying (QC): 3 (Jonathan) Lying-Sitting on Side/Bed(QC): 3 (Jonathan) Sit to Stand (QC): 3 (Jonathan) Chair/Fqg-xt-Eafmy Xfer(QC): 3 (Jonathan) Toilet Transfer (QC): 3 (Jonathan) Car Transfer (QC): 3 (Jonathan) Does the Patient Walk: No and Walking Goal IS indicated Walk 10 feet (QC): 3 (modA) Walk 50ft with 2 Turns (QC): 88 Walk 150 ft (QC): 88 Walking 10ft on Uneven Surface: 88 1 Step (curb) (QC): 88 4 Steps (QC): 88 12 Steps (QC): 88 Picking up an Object (QC): 88 Wheel 50 feet with 2 turns (QC: 4 (SBA) Wheel 150 feet: 4 (SBA) PT Plan Problem List Problem List: Activity Tolerance, Functional Strength, Safety, Transfer Treatment/Plan Treatment Plan: Continue Plan of Care Treatment Plan: Bed Mobility, Education, Functional Activity Anitra, Functional Strength, Group Therapy, Gait, Safety, Therapeutic Exercise, Transfers Treatment Duration: Dec 21, 2021 Frequency: At least 5 of 7 days/Wk (IRF) Estimated Hrs Per Day: 1.5 hours per day Patient and/or Family Agrees t: Yes Safety Risks/Education Patient Education: Gait Training, Transfer Techniques, Correct Positioning, Safety Issues Teaching Recipient: Patient Teaching Methods: Discussion Response to Teaching: Verbalize Understanding Time/GCodes Time In: 1045 Time Out: 1200 Total Billed Treatment Time: 75 Total Billed Treatment 1, FA x5 (75m) SIENNA FERNANDEZ STRAWHAT INSPECTOR AND PACKER Dec 01, 2021 12:16
--- NOTE | 2021-12-01 12:33 | Occupational Ther Daily Note ---
OT Current Status-Daily Note Subjective Pt alert, lying in bed. Pt agrees to therapy. No c/o pain at beginning of session, at end of session pt requests pain meds (reported to nrsg). Mental Status/Objective Patient Orientation: Person, Place, Time, Situation Attachments: IV ADL-Treatment Pt agrees to shower. Mod A for supine to EOB. Sat EOB with close SBA for safety. Max A for SPT from surface to surface. Max A x2 for toileting to cleanse and manipulate clothing. Transferred to rolling shower chair, max A SPT and assist 2nd person for safety. With cues and set up, pt able to bath all areas except lower legs/feet while sitting on rolling shower chair with cutout. Max A for donning/doffing upper body clothing. Assist x2 for lower body clothing. Mod A to slide on shoes. Nrsg needed pt back in bed for bladder scan. Max A for SPT to bed then mod A x2 for EOB to supine. Therapy Code Descriptions/Definitions Functional [place] Measure: 0=Not Assessed/NA 4=Minimal Assistance 1=Total Assistance 5=Supervision or Setup 2=Maximal Assistance 6=Modified [place] 3=Moderate Assistance 7=Complete IndependenceSCALE: Activities may be completed with or without assistive devices. 1-Wzfkkxrltm-xxvnghi completes the activity by him/herself with no assistance from a helper. 5-Set-up or Clean-up Assistance-helper sets up or cleans up; patient completes activity. [place] assists only prior to or following the activity. 4-Supervision or Touching Assistance-helper provides verbal cues and/or touching/steadying and/or contact guard assistance as patient completes activity. Assistance may be provided throughout the activity or intermittently. 3-Partial/Moderate Assistance-helper does LESS THAN HALF the effort. [place] lifts, holds or supports trunk or limbs, but provides less than half the effort. 2-Substantial/Maximal Assistance-helper does MORE THAN HALF the effort. [place] lifts or holds trunk or limbs and provides more than half the effort. 5-Pskrbkhyf-zbcvyf does ALL the effort. Patient does none of the effort to complete the activity. Or, the assistance of 2 or more helpers is required for the patient to complete the activity. If activity was not attempted, code reason: 7-Patient Refused. 9-Not Applicable-not attempted and the patient did not perform the activity before the current illness, exacerbation or injury. 10-Not Attempted due to Environmental Limitations-(lack of equipment, weather restraints, etc.). 88-Not Attempted due to Medical Conditions or Safety Concerns. Shower/Bathe Self (QC): 3 Upper Body Dressing (QC): 2 Lower Body Dressing (QC): 2 On/Off Footwear: 3 Toileting Hygiene (QC): 1 Toilet Transfer (QC): 2 Co-treat with PT([id number]), skills of 2 clinicians required to decrease fall risk, increase all mobility and ADLs. PT focusing on transfers, mobility and standing while OT focusing on ADLs, L UE placement during functional mobility and adjusting stance during standing at parallel bars. Other Treatment Pt stood at parallel bars with assist x2 to position body correctly throughout stance. See PT notes for progress. Pt is attempting to utilize L UE during ADLs and wt bearing at parallel bars during standing after positioned. After session, pt sitting in bed with call light/phone in reach. All needs met in room. OT Short Term Goals Short Term Goals Time Frame: Dec 14, 2021 Eatin Oral hygiene: 4 Toileting hygiene: 2 Shower/bathe self: 2 Upper body dressin Lower body dressin Putting on/taking off footwear: 2 OT Bioprocessing Manufacturing Technician Goals Bioprocessing Manufacturing Technician Goals Time Frame: Dec 28, 2021 Eating (QC): 5 Oral Hygiene (QC): 6 Toileting Hygiene (QC): 4 Shower/Bathe Self (QC): 4 Upper Body Dressing (QC): 4 Lower Body Dressing (QC): 4 On/Off Footwear (QC): 4 1=Demonstrate adherence to instructed precautions during ADL tasks. 2=Patient will verbalize/demonstrate understanding of assistive devices/modifications for ADL. 3=Patient will improve strength/tolerance for activity to enable patient to perform ADL's. OT Education/Plan Problem List/Assessment Assessment: Decreased Activ Tolerance, Decreased Safety Aware, Decreased UE Strength, Impaired Bed Mobility, Impaired Cognition, Impaired Coordination, Impaired Funct Balance, Impaired Self-Care Skills, Restricted Funct UE ROM Discharge Recommendations Plan/Recommendations: Continue POC Treatment Plan/Plan of Care Patient would benefit from OT for education, treatment and training to promote independence in ADL's, mobility, safety and/or upper extremity function for ADL's. Plan of Care: ADL Retraining, Caregiver Training, Cognitive Retraining, Functional Mobility, Group Exercise/Act as Ind, UE Funct Exercise/Act, UE Neuromus Re-Ed/Coord, Visual/Perceptual Retrain, W/C Management Training Treatment Duration: Dec 28, 2021 Frequency: Modified Program (IRF) Estimated Hrs Per Day: 1 hour per day (75-90 min/day) Agreement: Yes Rehab Potential: Fair Time/GCodes Start Time: 10:30 Stop Time: 12:00 Total Time Billed (hr/min): 90 Billed Treatment Time 1 visit-ADL 3 (50 min) NM 3 (40 min) co-treat with PT [id number], individual [phone] ROHIT BENTLEY Dec 01, 2021 12:33
[2021-12-01 19:35] VITALS: BP 144/76
[2021-12-01] MEDS: ZOLPIDEM 5 MG (AMBIEN) TAB PO SCH (20:38)
--- NOTE | 2021-12-02 06:05 | PM&R Progress Note ---
Subjective HPI/CC On Admission Date Seen by Provider: Dec 02, 2021 Time Seen by Provider: 10:00 Subjective/Events-last exam 12/02/21: Pt is doing really well Discontinued spencer catheter, she is incontinent Post void residual is minimal Will increase PO fluids Discontinue telemetry Deandrevyn will be placed on her bottom due to high risk for stage 1 Incontinent of stool last night so will monitor that closely 12/01/21: Pt had her spencer taken out Incontinent of urine Labs look okay Discontinue telemetry because it is afib Participating with all therapies Review of Systems General: Fatigue, Malaise Genitourinary: Incontinence Neurological: Weakness, Confusion Objective Exam Vital Signs Vital Signs Date Time Temp Pulse Resp B/P (MAP) Pulse Ox O2 Delivery O2 Flow Rate FiO2 12/02/21 20:00 36.6 97 18 148/72 (97) 93 Room Air Capillary Refill : General Appearance: No Apparent Distress, WD/WN, Chronically ill, Obese HEENT: PERRL/EOMI, Normal ENT Inspection, Pharynx Normal Neck: Full Range of Motion, Normal Inspection, Non Tender, Supple, Carotid Bruit Respiratory: Chest Non Tender, Lungs Clear, Normal Breath Sounds, No Accessory Muscle Use, No Respiratory Distress Cardiovascular: Regular Rate, Rhythm, No Edema, No Gallop, No JVD, No Murmur, Normal Peripheral Pulses Gastrointestinal: Normal Bowel Sounds, No Organomegaly, No Pulsatile Mass, Non Tender, Soft Back: Normal Inspection, No CVA Tenderness, No Vertebral Tenderness Extremity: Normal Capillary Refill, Normal Inspection, Normal Range of Motion, Non Tender, No Calf Tenderness, No Pedal Edema Neurologic/Psychiatric: Alert, Oriented x3, Normal Mood/Affect, telephoner II-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 FIM Transfers Therapy Code Descriptions/Definitions Functional [place] Measure: 0=Not Assessed/NA 4=Minimal Assistance 1=Total Assistance 5=Supervision or Setup 2=Maximal Assistance 6=Modified [place] 3=Moderate Assistance 7=Complete IndependenceSCALE: Activities may be completed with or without assistive devices. 9-Mkrkjklziz-udgcmva completes the activity by him/herself with no assistance from a helper. 5-Set-up or Clean-up Assistance-helper sets up or cleans up; patient completes activity. [place] assists only prior to or following the activity. 4-Supervision or Touching Assistance-helper provides verbal cues and/or touching/steadying and/or contact guard assistance as patient completes activity. Assistance may be provided throughout the activity or intermittently. 3-Partial/Moderate Assistance-helper does LESS THAN HALF the effort. [place] lifts, holds or supports trunk or limbs, but provides less than half the effort. 2-Substantial/Maximal Assistance-helper does MORE THAN HALF the effort. [place] lifts or holds trunk or limbs and provides more than half the effort. 4-Yagexbpgt-qgxnzp does ALL the effort. Patient does none of the effort to complete the activity. Or, the assistance of 2 or more helpers is required for the patient to complete the activity. If activity was not attempted, code reason: 7-Patient Refused. 9-Not Applicable-not attempted and the patient did not perform the activity before the current illness, exacerbation or injury. 10-Not Attempted due to Environmental Limitations-(lack of equipment, weather restraints, etc.). 88-Not Attempted due to Medical Conditions or Safety Concerns. Roll Left to Right (QC): 2 Sit to Lying (QC): 2 Sit to Stand (QC): 3 Chair/Ddu-og-Zaqcs Xfer(QC): 3 Car Transfer (QC): 2 Gait Training Does the Patient Walk?: No and Walking Goal IS indicated Walk 10 feet (QC): 88 Walk 50 ft with 2 Turns(QC): 88 Walk 150 ft (QC): 88 Walking 10ft/uneven surface-QC: 88 Wheelchair Training Does the Pt Use a Wheelchair?: Yes Distance: 50'x2 Wheel 50 ft with 2 turns (QC): 3 Wheel 150 ft (QC): 88 Type of Wheelchair: Manual Stair Training 1 Step (curb) (QC): 88 4 Steps (QC): 88 12 Steps (QC): 88 Balance Picking up an Object (QC): 88 ADL-Treatment Eating (QC): 3 Oral Hygiene (QC): 3 Shower/Bathe Self (QC): 3 Upper Body Dressing (QC): 2 Lower Body Dressing (QC): 2 On/Off Footwear (QC): 3 Toileting Hygiene (QC): 1 Toilet Transfer (QC): 2 Assessment/Plan Assessment and Plan Assess & Plan/Chief Complaint Assessment: CVA subacute not a tPa candidate New atrial fibrillation placed on oral anticoagulation and consult cardiology 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 Confusion now resolved Expressive aphasia much improved HTN HLP Chronic pain Osteoarthritis Plan: Oral anticoagulation Aggressive rehab Supportive care Fall risk 12/01/21: Supportive care Monitor BP 12/02/21: Monitor BP Incontinence care (1) Cerebrovascular accident due to cerebral artery occlusion Status: Acute (2) Hypertension Status: Chronic (3) Osteoarthritis Status: Chronic (4) Insomnia Status: Chronic (5) Atrial fibrillation Status: Acute (6) Overactive bladder Status: Chronic (7) History of bowel resection Status: Chronic LUIS FELIPE COREAS DO Dec 02, 2021 06:05
[2021-12-02] MEDS: DOCUSATE SODIUM 100 MG (COLACE) CAP PO SCH ×2 (07:38→20:57)
[2021-12-02] MEDS: ASPIRIN 325 MG (5 GR) TABLET PO SCH (07:38)
[2021-12-02] MEDS: amLODIPine 2.5MG (NORVASC) TAB PO SCH (07:39)
[2021-12-02] MEDS: APIXABAN 2.5 MG (ELIQUIS) TABLET PO SCH ×2 (07:39→20:56)
[2021-12-02] MEDS: SENNOSIDES 8.6 MG (SENOKOT) TAB PO SCH ×2 (07:44→21:03)
[2021-12-02 08:19] VITALS: BP 147/73
--- NOTE | 2021-12-02 08:58 | Occupational Ther Daily Note ---
OT Current Status-Daily Note Subjective Pt alert, lying in bed. Pt agrees to therapy. No c/o pain. Mental Status/Objective Patient Orientation: Person, Place, Time, Situation ADL-Treatment Supine to EOB SBA with HOB raised. Pt agrees to change clothing and complete oral care. Max A for SPT from surface to surface. Set up for upper body dressing. Pt able to thread R foot into pants then assist to thread L foot, pull s up legs then assist to stand and 2nd person assist to pull up pants. Assist to thread socks onto toes then pt able to pull socks over heels and up legs. Min A for slip on shoes. Pt completed oral care independently. Therapy Code Descriptions/Definitions Functional [place] Measure: 0=Not Assessed/NA 4=Minimal Assistance 1=Total Assistance 5=Supervision or Setup 2=Maximal Assistance 6=Modified [place] 3=Moderate Assistance 7=Complete IndependenceSCALE: Activities may be completed with or without assistive devices. 0-Zdwgmiebiw-wgtdalh completes the activity by him/herself with no assistance from a helper. 5-Set-up or Clean-up Assistance-helper sets up or cleans up; patient completes activity. [place] assists only prior to or following the activity. 4-Supervision or Touching Assistance-helper provides verbal cues and/or touching/steadying and/or contact guard assistance as patient completes act ivity. Assistance may be provided throughout the activity or intermittently. 3-Partial/Moderate Assistance-helper does LESS THAN HALF the effort. [place] lifts, holds or supports trunk or limbs, but provides less than half the effort. 2-Substantial/Maximal Assistance-helper does MORE THAN HALF the effort. [place] lifts or holds trunk or limbs and provides more than half the effort. 7-Ymqnfukub-zyvuyf does ALL the effort. Patient does none of the effort to complete the activity. Or, the assistance of 2 or more helpers is required for the patient to complete the activity. If activity was not attempted, code reason: 7-Patient Refused. 9-Not Applicable-not attempted and the patient did not perform the activity before the current illness, exacerbation or injury. 10-Not Attempted due to Environmental Limitations-(lack of equipment, weather restraints, etc.). 88-Not Attempted due to Medical Conditions or Safety Concerns. Eating (QC): 5 Oral Hygiene (QC): 6 Upper Body Dressing (QC): 5 Lower Body Dressing (QC): 1 On/Off Footwear: 2 (mod A) Pt asking about discharge and what she needs to work on to discharge. Pt unable to state why she is the hospital and what are her difficulties with L UE/LE's. Other Treatment Pt working on sit to stands by pulling up with parallel bars. Pt able to pull to stand with min A and assist to stabilize L LE while positioning body. Pt able to reach and grasp with L hand and assist to pull to stand. Pt then working on using each hand to place rings on toe of foot by bending over. Verbal cues to use L hand instead of R hand. Pt has decreased strength in flight attendant/inflight manager and movement in L thumb for opposition, with repetition did increase. ROM arc completed in sitting by each hand crossing midline to bring rings from one side to other. Pt then stood at grabbar while stabilizing self with L UE and min A while using R UE to complete gross/fine motor tasks. After session, pt sitting in recliner with call light/phone in reach. All needs met. OT Short Term Goals Short Term Goals Time Frame: Dec 14, 2021 Eatin Oral hygiene: 4 Toileting hygiene: 2 Shower/bathe self: 2 Upper body dressin Lower body dressin Putting on/taking off footwear: 2 OT Snuff Drier Goals Fpc Goals Time Frame: Dec 28, 2021 Eating (QC): 5 Oral Hygiene (QC): 6 Toileting Hygiene (QC): 4 Shower/Bathe Self (QC): 4 Upper Body Dressing (QC): 4 Lower Body Dressing (QC): 4 On/Off Footwear (QC): 4 1=Demonstrate adherence to instructed precautions during ADL tasks. 2=Patient will verbalize/demonstrate understanding of assistive devices/modifications for ADL. 3=Patient will improve strength/tolerance for activity to enable patient to perform ADL's. OT Education/Plan Problem List/Assessment Assessment: Decreased Activ Tolerance, Decreased Safety Aware, Decreased UE Strength, Impaired Cognition, Impaired Coordination, Impaired Funct Balance, Impaired Self-Care Skills, Restricted Funct UE ROM Discharge Recommendations Plan/Recommendations: Continue POC Treatment Plan/Plan of Care Patient would benefit from OT for education, treatment and training to promote independence in ADL's, mobility, safety and/or upper extremity function for ADL's. Plan of Care: ADL Retraining, Caregiver Training, Cognitive Retraining, Functional Mobility, Group Exercise/Act as Ind, UE Funct Exercise/Act, UE Neuromus Re-Ed/Coord, Visual/Perceptual Retrain, W/C Management Training Treatment Duration: Dec 28, 2021 Frequency: Modified Program (IRF) Estimated Hrs Per Day: 1 hour per day (75-90 min/day) Agreement: Yes Rehab Potential: Fair Time/GCodes Start Time: 07:30 Stop Time: 08:45 Total Time Billed (hr/min): 75 Billed Treatment Time 1 visit-ADL 3 (45 min) NM 2 (30 min) ROHIT BENTLEY Dec 02, 2021 08:58
--- NOTE | 2021-12-02 12:07 | Physical Therapy Daily Note ---
PT Daily Note-Current Subjective Pt laying in recliner upon arrival. Pt agrees to PT. Mental Status Patient Orientation: Person, Confused Transfers SCALE: Activities may be completed with or without assistive devices. 2-Jtcjafmmgh-qxsvsej completes the activity by him/herself with no assistance from a helper. 5-Set-up or Clean-up Assistance-helper sets up or cleans up; patient completes activity. [place] assists only prior to or following the activity. 4-Supervision or Touching Assistance-helper provides verbal cues and/or touc peggy/steadying and/or contact guard assistance as patient completes activity. Assistance may be provided throughout the activity or intermittently. 3-Partial/Moderate Assistance-helper does LESS THAN HALF the effort. [place] lifts, holds or supports trunk or limbs, but provides less than half the effort. 2-Substantial/Maximal Assistance-helper does MORE THAN HALF the effort. [place] lifts or holds trunk or limbs and provides more than half the effort. 4-Npojwauzp-pbbibu does ALL the effort. Patient does none of the effort to complete the activity. Or, the assistance of 2 or more helpers is required for the patient to complete the activity. If activity was not attempted, code reason: 7-Patient Refused. 9-Not Applicable-not attempted and the patient did not perform the activity before the current illness, exacerbation or injury. 10-Not Attempted due to Environmental Limitations-(lack of equipment, weather restraints, etc.). 88-Not Attempted due to Medical Conditions or Safety Concerns. Sit to Stand (QC): 2 Toilet Transfer (QC): 3 Weight Bearing Full Weight Bearing Full Weight Bearing Wheelchair Training Does the Pt Use a Wheelchair?: Yes Wheel 50 ft with 2 turns (QC): 3 Wheel 150 ft (QC): 3 Type of Wheelchair: Manual Assist as pt drifts L due to L UE & LE weakness. Exercises Supine Ex: Ankle pumps, Quad Set, Heel Slides, Hip abd/add Supine Reps: 15 Seated Therapy Exercises: Ankle pumps, Long arc quads, Hip flexion, Hip abd/add, Glut set Seated Reps: 15 NuStep Minutes: 10 NuStep Workload: 3 Treatments Pt completes Supine then Seated Ex at recliner. Pt TF from recliner to [facility] via SPT. Pt propels [facility] in hallway w/WINDOW SYSTEMS ADMINISTRATOR assistance. Pt SPT from [facility] to [facility] and takes short RB after use. Pt propels [facility] in hallway w/WINDOW SYSTEMS ADMINISTRATOR assistance. Pt returns to room to rest in recliner, awaiting lunch. All needs met, call light in hand. Assessment Current Status: Fair Progress Pt is not socially aware of what is going on during tx and why she is on ARU. Pt needs repeated VC for redirection and safety. PT Short Term Goals Short Term Goals Time Frame: Dec 07, 2021 Roll Left & Right: 3 (modA) Sit to lyin (moA) Lying to sitting on side of be: 3 (modA) Sit to stand: 3 (modA) Chair/scn-hg-pehep transfer: 3 (modA) PT Intermediate Goals Golf Club Repairer Goals PT Golf Club Repairer Goals Time Frame: Dec 21, 2021 Roll Left & Right (QC): 3 (Jonathan) Sit to Lying (QC): 3 (Jonathan) Lying-Sitting on Side/Bed(QC): 3 (Jonathan) Sit to Stand (QC): 3 (Jonathan) Chair/Kme-zj-Rnvrc Xfer(QC): 3 (Jonathan) Toilet Transfer (QC): 3 (Jonathan) Car Transfer (QC): 3 (Jonathan) Does the Patient Walk: No and Walking Goal IS indicated Walk 10 feet (QC): 3 (modA) Walk 50ft with 2 Turns (QC): 88 Walk 150 ft (QC): 88 Walking 10ft on Uneven Surface: 88 1 Step (curb) (QC): 88 4 Steps (QC): 88 12 Steps (QC): 88 Picking up an Object (QC): 88 Wheel 50 feet with 2 turns (QC: 4 (SBA) Wheel 150 feet: 4 (SBA) PT Plan Problem List Problem List: Activity Tolerance, Functional Strength, Safety, Gait, Transfer Treatment/Plan Treatment Plan: Continue Plan of Care Treatment Plan: Bed Mobility, Education, Functional Activity Anitra, Functional Strength, Group Therapy, Gait, Safety, Therapeutic Exercise, Transfers Treatment Duration: Dec 21, 2021 Frequency: At least 5 of 7 days/Wk (IRF) Estimated Hrs Per Day: 1.5 hours per day Patient and/or Family Agrees t: Yes Safety Risks/Education Patient Education: Transfer Techniques, Correct Positioning, W/C Management, Safety Issues Teaching Recipient: Patient Teaching Methods: Demonstration, Discussion Response to Teaching: Reinforcement Needed Time/GCodes Time In: 1045 Time Out: 1200 Total Billed Treatment Time: 75 Total Billed Treatment 1, [facility] x2 (30m) & EX x3 (45m) SIENNA FERNANDEZ WINDOW SYSTEMS ADMINISTRATOR Dec 02, 2021 12:07
--- NOTE | 2021-12-02 14:45 | Speech Therapy Daily Note ---
Speech Daily Progress Note Subjective Date Seen by Provider: Dec 02, 2021 Time Seen by Provider: 09:30 The patient was seated upright in her recliner, awake and alert upon entrance to the patient's room by the clinician. The patient greeted the clinician appropriately and was agreeable to participation in the cognitive linguistic treatment session. The patient's remained at bedside throughout the treatment. Objective The patient and clinician reviewed the patient's home environment and possible safety concerns towards a safe discharge home. The patient denied any safety concerns and believes she is ready to discharge. The clinician reviewed the patient's left arm and leg weakness, however, the patient stated, "They're getting better, they're okay." Additionally, the patient discussed driving with the clinician and seemed surprised with the clinician questioned the patient's ability to complete this task safely. The patient displays poor awareness of her deficits and current medical status, questioning the clinician's statement regarding a recent "stroke." The patient's is present and states the patient was driving prior to admission, however, would get "confused if she went very far, out of her normal area." Assessment Assessment Current Status: Fair Progress Treatment Plan Continue Plan of Care Speech Short Term Goals Short Term Goals Short Term Goals 1. The patient will demonstrated 80% accuracy on memory exercises with mild clinician verbal and visual cueing. Time Frame-STG: One Week. Speech Pharmacy Technician Trainee Goals Jail Goals 1. The patient will improve cognitive linguistic skills for a safe discharge to the least restricted environment. Time Frame: Two Weeks. Speech-Plan Treatment Plan Speech Therapy Treatment Plan: Continue Plan of Care Treatment Duration: Dec 14, 2021 Frequency: Modified Program (IRF) (Three to five times per week.) Estimated Hrs Per Day: .5 hour per day Rehab Potential: Fair Safety Risks/Education Teaching Recipient: Patient, Family Teaching Methods: Discussion Response to Teaching: Reinforcement Needed Education Topics Provided: Plan of Care, Goals. Time Speech Therapy Time In: 09:30 Speech Therapy Time Out: 10:00 Total Billed Time: 30 Billed Treatment Time ChuckSRINIVASAN ELIZABETH ST Dec 02, 2021 14:45
[2021-12-02 20:00] VITALS: BP 148/72
[2021-12-02] MEDS: ZOLPIDEM 5 MG (AMBIEN) TAB PO SCH (20:56)
--- NOTE | 2021-12-03 05:47 | PM&R Progress Note ---
Subjective HPI/CC On Admission Date Seen by Provider: Dec 03, 2021 Time Seen by Provider: 12:00 Subjective/Events-last exam 12/03/21: Pt is doing pretty well Incontinence noted Dementia issues are apparent Daughter wants to know if she can be started on dementia medication and an appetite stimulant, but she is just really not stable enough neurologically to start meds. Appetite stimulant is not indicated at this time. 12/02/21: Pt is doing really well Discontinued spencer catheter, she is incontinent Post void residual is minimal Will increase PO fluids Discontinue telemetry Allevyn will be placed on her bottom due to high risk for stage 1 Incontinent of stool last night so will monitor that closely 12/01/21: Pt had her spencer taken out Incontinent of urine Labs look okay Discontinue telemetry because it is afib Participating with all therapies Review of Systems General: Fatigue, Malaise Neurological: Weakness, Confusion Objective Exam Vital Signs Vital Signs Date Time Temp Pulse Resp B/P (MAP) Pulse Ox O2 Delivery O2 Flow Rate FiO2 12/03/21 20:45 Room Air 12/03/21 19:47 36.5 100 16 158/77 (104) 96 12/03/21 09:28 21 12/03/21 08:20 0.00 Capillary Refill : General Appearance: No Apparent Distress, WD/WN, Chronically ill, Obese HEENT: PERRL/EOMI, Normal ENT Inspection, Pharynx Normal Neck: Full Range of Motion, Normal Inspection, Non Tender, Supple, Carotid Bruit Respiratory: Chest Non Tender, Lungs Clear, Normal Breath Sounds, No Accessory Muscle Use, No Respiratory Distress Cardiovascular: Regular Rate, Rhythm, No Edema, No Gallop, No JVD, No Murmur, Normal Peripheral Pulses Gastrointestinal: Normal Bowel Sounds, No Organomegaly, No Pulsatile Mass, Non Tender, Soft Back: Normal Inspection, No CVA Tenderness, No Vertebral Tenderness Extremity: Normal Capillary Refill, Normal Inspection, Normal Range of Motion, Non Tender, No Calf Tenderness, No Pedal Edema Neurologic/Psychiatric: Alert, Oriented x3, Normal Mood/Affect, automation clerk II-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 FIM Transfers Therapy Code Descriptions/Definitions Functional [place] Measure: 0=Not Assessed/NA 4=Minimal Assistance 1=Total Assistance 5=Supervision or Setup 2=Maximal Assistance 6=Modified [place] 3=Moderate Assistance 7=Complete IndependenceSCALE: Activities may be completed with or without assistive devices. 8-Xmjbdncshu-cxoumnl completes the activity by him/herself with no assistance from a helper. 5-Set-up or Clean-up Assistance-helper sets up or cleans up; patient completes activity. [place] assists only prior to or following the activity. 4-Supervision or Touching Assistance-helper provides verbal cues and/or touching/steadying and/or contact guard assistance as patient completes activity. Assistance may be provided throughout the activity or intermittently. 3-Partial/Moderate Assistance-helper does LESS THAN HALF the effort. [place] lifts, holds or supports trunk or limbs, but provides less than half the effort. 2-Substantial/Maximal Assistance-helper does MORE THAN HALF the effort. [place] lifts or holds trunk or limbs and provides more than half the effort. 8-Kgdyhbhzl-pziwzx does ALL the effort. Patient does none of the effort to complete the activity. Or, the assistance of 2 or more helpers is required for the patient to complete the activity. If activity was not attempted, code reason: 7-Patient Refused. 9-Not Applicable-not attempted and the patient did not perform the activity before the current illness, exacerbation or injury. 10-Not Attempted due to Environmental Limitations-(lack of equipment, weather restraints, etc.). 88-Not Attempted due to Medical Conditions or Safety Concerns. Roll Left to Right (QC): 2 Sit to Lying (QC): 2 Sit to Stand (QC): 2 Chair/Lnw-ab-Mwzcr Xfer(QC): 3 Car Transfer (QC): 2 Gait Training Does the Patient Walk?: No and Walking Goal IS indicated Walk 10 feet (QC): 88 Walk 50 ft with 2 Turns(QC): 88 Walk 150 ft (QC): 88 Walking 10ft/uneven surface-QC: 88 Wheelchair Training Does the Pt Use a Wheelchair?: Yes Distance: 50'x2 Wheel 50 ft with 2 turns (QC): 3 Wheel 150 ft (QC): 3 Type of Wheelchair: Manual Stair Training 1 Step (curb) (QC): 88 4 Steps (QC): 88 12 Steps (QC): 88 Balance Picking up an Object (QC): 88 ADL-Treatment Eating (QC): 5 Oral Hygiene (QC): 6 Shower/Bathe Self (QC): 3 Upper Body Dressing (QC): 5 Lower Body Dressing (QC): 1 On/Off Footwear (QC): 2 (mod A) Toileting Hygiene (QC): 1 Toilet Transfer (QC): 2 Assessment/Plan Assessment and Plan Assess & Plan/Chief Complaint Assessment: CVA subacute not a tPa candidate New atrial fibrillation placed on oral anticoagulation and consult cardiology 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 Confusion now resolved Expressive aphasia much improved HTN HLP Chronic pain Osteoarthritis Plan: Oral anticoagulation Aggressive rehab Supportive care Fall risk 12/01/21: Supportive care Monitor BP 12/02/21: Monitor BP Incontinence care 12/03/21: Monitor BP (1) Cerebrovascular accident due to cerebral artery occlusion Status: Acute (2) Hypertension Status: Chronic (3) Osteoarthritis Status: Chronic (4) Insomnia Status: Chronic (5) Atrial fibrillation Status: Acute (6) Overactive bladder Status: Chronic (7) History of bowel resection Status: Chronic LUIS FELIPE COREAS DO Dec 03, 2021 05:47
[2021-12-03] MEDS: ASPIRIN 325 MG (5 GR) TABLET PO SCH (07:16)
[2021-12-03] MEDS: APIXABAN 2.5 MG (ELIQUIS) TABLET PO SCH ×2 (07:16→20:59)
[2021-12-03] MEDS: amLODIPine 2.5MG (NORVASC) TAB PO SCH (07:16)
[2021-12-03] MEDS: DOCUSATE SODIUM 100 MG (COLACE) CAP PO SCH ×2 (07:16→20:59)
[2021-12-03] MEDS: SENNOSIDES 8.6 MG (SENOKOT) TAB PO SCH ×2 (07:23→20:59)
[2021-12-03 07:29] VITALS: BP 147/97
--- NOTE | 2021-12-03 08:58 | Occupational Ther Daily Note ---
OT Current Status-Daily Note Subjective Pt alert, sitting in recliner. Pt agrees to therapy. Pt continues to not understand what brought her to the hospital and does not realize that she has had a stroke. Pt wants to make sure she talks to doctor today. Mental Status/Objective Patient Orientation: Person, Place, Time ADL-Treatment Declines shower and changing clothing today. Pt agrees to complete oral care and grooming. Pt using FWW to transfer from recliner to w/c with verbal/physical cues and mod A due to not being able to sequence stepping with B LE's for transfers, reminders to step back and feel chair before sitting then reaching back for seat (pt would state that "I am reaching back." she would have hands on FWW and need to verbally cue to look where her hands were.) Pt able to complete grooming independently sitting at sink. Pt is utilizing L UE more effectively with functional tasks. Pt requested to use toilet at end of session. Pt requires assist x2, one to transfer and one to manipulate clothing and cleanse buttocks. Pt able to cleanse mitch area on toilet. Pt required mod A for EOB to supine and position in bed. After session, pt lying comfortably in bed with call light/phone in reach. All needs met in room. Therapy Code Descriptions/Definitions Functional [place] Measure: 0=Not Assessed/NA 4=Minimal Assistance 1=Total Assistance 5=Supervision or Setup 2=Maximal Assistance 6=Modified [place] 3=Moderate Assistance 7=Complete IndependenceSCALE: Activities may be completed with or without assistive devices. 5-Vlijughokv-vswvojt completes the activity by him/herself with no assistance from a helper. 5-Set-up or Clean-up Assistance-helper sets up or cleans up; patient completes activity. [place] assists only prior to or following the activity. 4-Supervision or Touching Assistance-helper provides verbal cues and/or touching/steadying and/or contact guard assistance as patient completes activity. Assistance may be provided throughout the activity or intermittently. 3-Partial/Moderate Assistance-helper does LESS THAN HALF the effort. [place] l ifts, holds or supports trunk or limbs, but provides less than half the effort. 2-Substantial/Maximal Assistance-helper does MORE THAN HALF the effort. [place] lifts or holds trunk or limbs and provides more than half the effort. 6-Yvnrpbfmh-zzwkcn does ALL the effort. Patient does none of the effort to complete the activity. Or, the assistance of 2 or more helpers is required for t he patient to complete the activity. If activity was not attempted, code reason: 7-Patient Refused. 9-Not Applicable-not attempted and the patient did not perform the activity before the current illness, exacerbation or injury. 10-Not Attempted due to Environmental Limitations-(lack of equipment, weather restraints, etc.). 88-Not Attempted due to Medical Conditions or Safety Concerns. Oral Hygiene (QC): 6 Other Treatment Mod A to propel w/c, left neglect and unable to sequence using B UE/LE. Pt completed arm bike using B UE for 4 min with cues to focus on L UE to maintain pv design engineer on handle then using only L UE for forward rotation 2 min, backward rotation 2 min without resistance. Pt required verbal cues to maintain pv design engineer on handle. Pt then complete resistive clothes pins with L hand and verbal/physical cues to only use L hand not R hand to open clothespins and place on bar. Verbal cues to squeeze pins open and guidance to place heavy resistance onto small bar. Pt then completed B UE fine motor task that working on sequencing and problem solving, pt did fair with this though would lose L pincer grasp on rubber band with resistance. Pt was given med/heavy resistance therapy sponge to work on L pv design engineer strength in room. OT Short Term Goals Short Term Goals Time Frame: Dec 14, 2021 Eatin Oral hygiene: 4 Toileting hygiene: 2 Shower/bathe self: 2 Upper body dressin Lower body dressin Putting on/taking off footwear: 2 OT Machine Grinder Goals Longterm Goals Time Frame: Dec 28, 2021 Eating (QC): 5 Oral Hygiene (QC): 6 Toileting Hygiene (QC): 4 Shower/Bathe Self (QC): 4 Upper Body Dressing (QC): 4 Lower Body Dressing (QC): 4 On/Off Footwear (QC): 4 1=Demonstrate adherence to instructed precautions during ADL tasks. 2=Patient will verbalize/demonstrate understanding of assistive devices/modifications for ADL. 3=Patient will improve strength/tolerance for activity to enable patient to perform ADL's. OT Education/Plan Problem List/Assessment Assessment: Decreased Activ Tolerance, Decreased Safety Aware, Decreased UE Strength, Impaired Bed Mobility, Impaired Cognition, Impaired Coordination, Impaired Funct Balance, Impaired Self-Care Skills, Restricted Funct UE ROM, Visual-Perceptual Deficit Discharge Recommendations Plan/Recommendations: Continue POC Treatment Plan/Plan of Care Patient would benefit from OT for education, treatment and training to promote independence in ADL's, mobility, safety and/or upper extremity function for ADL's. Plan of Care: ADL Retraining, Caregiver Training, Cognitive Retraining, Functional Mobility, Group Exercise/Act as Ind, UE Funct Exercise/Act, UE Neur omus Re-Ed/Coord, Visual/Perceptual Retrain, W/C Management Training Treatment Duration: Dec 28, 2021 Frequency: Modified Program (IRF) Estimated Hrs Per Day: 1 hour per day (75-90 min/day) Agreement: Yes Rehab Potential: Fair Time/GCodes Start Time: 07:30 Stop Time: 08:45 Total Time Billed (hr/min): 75 Billed Treatment Time 1 visit-ADL 2 (30 min) NM 3 (45 min) ROHIT BENTLEY Dec 03, 2021 08:58
--- NOTE | 2021-12-03 09:08 | Progress Note - Cardiology ---
Cardiology SOAP Progress Note Objective: I&O/Vital Signs 12/04/21 12/04/21 07:53 08:34 Temp 36.4 Pulse 101 Resp 18 B/P (MAP) 158/87 (110) Pulse Ox 96 O2 Delivery Room Air Room Air 12/04/21 00:00 Intake Total 250 ml Output Total 250 ml Balance 0 ml Weight (Pounds): 155 Weight (Ounces): 6.0 Weight (Calculated Kilograms): [id number] A/P: Assessment: 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 This area of occlusion is of unknown age.There is moderate to severe stenosis involving the distal right P1 MALT [employer]QUORS SALES SUPERVISOR and proximal left P2 MALT LIQUORS SALES SUPERVISOR region. There is severe stenosis involving the paraclinoid and supraclinoid left ICA regions. per CTA on 11-27-21 - Management per stroke team (Dr Lopez) - Per the ED note of 11-27-21: Multiple discussions with [facility], initial discussion was at [phone] Platt who recommended CT angiography of the brain and cervical vessels. 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 She has no "large vessel occlusion" and therefore is not a candidate for intervention. Dr. Platt was made aware of these results at 11:15 AM. She recommends permissive hypertension, holding her blood pressure medications. Daily aspirin and a head MRI. She would need to be evaluated for rehab. A-fib with controlled vent response - undetermined length of time - first dx on ECG of 11-27-21 at the [facility] ED - advise OAC with Eliquis 2.5 mg BID has been allowed - Echo on 11/27/21: LVEF 60-65%, unspecified diastolic dysfunction, mod to sev enlargement of LA, mild CHARLEY, PASP 30-35 mmHg Hypertension - improved DARCY DENNIS Dec 03, 2021 09:08
[2021-12-03 09:28] VITALS: BP 147/97
--- NOTE | 2021-12-03 10:58 | Speech Therapy Daily Note ---
Speech Daily Progress Note Subjective Date Seen by Provider: Dec 03, 2021 Time Seen by Provider: 09:00 The patient was lying upright in bed, awake and alert upon entrance to her room by the clinician. The patient's was present at bedside. The patient was hesitant, yet agreeable to participation in the cognitive linguistic treatment session. Objective - Orientation: The patient remains oriented to self, location, month, day of week, date and year. The patient assesses her accuracy by viewing the in-room white board following her responses. - Short Term Memory, Awareness: As the patient displays poor awareness of debility, the clinician reviewed admission, diagnosis, and current impairments. The patient stated, "I can't remember" and "I don't know" when asked what occurred which led to her hospitalization. The clinician reviewed the patient's diagnosis and left sided weakness which she stated she did not recall. The clinician returned to the diagnosis and weakness approximately five minutes later. At this point, the patient grew agitated stating, "I don't know why you keep asking me this, I said I don't know." The clinician reminded the patient of the recent conversation and the information which was provided. The patient continued to display poor awareness of hospitalization and deficits. The patient stated she is currently walking unassisted which is incorrect. The patient is using a wheelchair to mobilize between locations. Assessment Assessment Current Status: Poor Progress Treatment Plan Continue Plan of Care Speech Short Term Goals Short Term Goals Short Term Goals 1. The patient will demonstrated 80% accuracy on memory exercises with mild clinician verbal and visual cueing. Time Frame-STG: One Week. Speech Halfway Goals Warranty Manager Goals 1. The patient will improve cognitive linguistic skills for a safe discharge to the least restricted environment. Time Frame: Two Weeks. Speech-Plan Treatment Plan Speech Therapy Treatment Plan: Continue Plan of Care Treatment Duration: Dec 14, 2021 Frequency: Modified Program (IRF) (Three to five times per week.) Estimated Hrs Per Day: .5 hour per day Rehab Potential: Fair Safety Risks/Education Teaching Recipient: Patient, Family Teaching Methods: Discussion Response to Teaching: Reinforcement Needed Education Topics Provided: External Memory Strategies, Decreased Awareness Time Speech Therapy Time In: 09:00 Speech Therapy Time Out: 09:30 Total Billed Time: 30 Billed Treatment Time SRINIVASAN Woods [facility] Dec 03, 2021 10:58
--- NOTE | 2021-12-03 11:16 | Physical Therapy Daily Note ---
PT Daily Note-Current Subjective Patient in bed pre tx, agrees to PT, has no complaints of pain. Appearance Patient in bed post tx with nurse call, phone, tray, bed alarm on. Mental Status Patient Orientation: Person, Confused Transfers SCALE: Activities may be completed with or without assistive devices. 2-Frckxxjydi-pyxdcmb completes the activity by him/herself with no assistance from a helper. 5-Set-up or Clean-up Assistance-helper sets up or cleans up; patient completes activity. [place] assists only prior to or following the activity. 4-Supervision or Touching Assistance-helper provides verbal cues and/or touching/steadying and/or contact guard assistance as patient completes activity. Assistance may be provided throughout the activity or intermittently. 3-Partial/Moderate Assistance-helper does LESS THAN HALF the effort. [place] lifts, holds or supports trunk or limbs, but provides less than half the effort. 2-Substantial/Maximal Assistance-helper does MORE THAN HALF the effort. [place] lifts or holds trunk or limbs and provides more than half the effort. 6-Rqtgeeooi-mezunc does ALL the effort. Patient does none of the effort to complete the activity. Or, the assistance of 2 or more helpers is required for the patient to complete the activity. If activity was not attempted, code reason: 7-Patient Refused. 9-Not Applicable-not attempted and the patient did not perform the activity before the current illness, exacerbation or injury. 10-Not Attempted due to Environmental Limitations-(lack of equipment, weather restraints, etc.). 88-Not Attempted due to Medical Conditions or Safety Concerns. Sit to Lying (QC): 3 Lying to Sitting/Side of Bed(Q: 3 Sit to Stand (QC): 3 Chair/Nsx-bn-Lqwzn Xfer(QC): 3 supine to sit min assist, sit to supine mod assist, sit to stand min assist, stand pivot transfer min assist to the right side, mod assist to the left side Weight Bearing Full Weight Bearing Full Weight Bearing Gait Training Distance: 6'x3 Gait Persons Needed: 1 Gait Assistive Device: Parallel Bars Patient is able to advance her left leg on her own now but has difficulty mostly due to her left neglect, needs cues to take bigger steps and to clear foot more. Wheelchair Training Does the Pt Use a Wheelchair?: Yes Wheel 50 ft with 2 turns (QC): 3 Type of Wheelchair: Manual 120'x2 mod assist, patient has difficulty coordinating right UE and LE to propel WC Exercises Seated Therapy Exercises: Ankle pumps, Long arc quads, Hip flexion, Hip abd/add (with ball and RTB) Seated Reps: 20 Standing: Marching, Sit to Stand (x5) Standing Reps: 15 NuStep Minutes: 15 NuStep Workload: 5 Treatments bed mobility and transfers, ambulation, functional strengthening, WC mobility Assessment Current Status: Fair Progress patient's left neglect is making progress difficult for patient, she seems to also have poor motivation PT Short Term Goals Short Term Goals Time Frame: Dec 07, 2021 Roll Left & Right: 3 (modA) Sit to lyin (moA) Lying to sitting on side of be: 3 (modA) Sit to stand: 3 (modA) Chair/lpl-jf-pgrzs transfer: 3 (modA) PT Shelter Goals Geoscience Technician Goals PT Geoscience Technician Goals Time Frame: Dec 21, 2021 Roll Left & Right (QC): 3 (Jonathan) Sit to Lying (QC): 3 (Jonathan) Lying-Sitting on Side/Bed(QC): 3 (Jonathan) Sit to Stand (QC): 3 (Jonathan) Chair/Aza-os-Szbzj Xfer(QC): 3 (Jonathan) Toilet Transfer (QC): 3 (Jonathan) Car Transfer (QC): 3 (Jonathan) Does the Patient Walk: No and Walking Goal IS indicated Walk 10 feet (QC): 3 (modA) Walk 50ft with 2 Turns (QC): 88 Walk 150 ft (QC): 88 Walking 10ft on Uneven Surface: 88 1 Step (curb) (QC): 88 4 Steps (QC): 88 12 Steps (QC): 88 Picking up an Object (QC): 88 Wheel 50 feet with 2 turns (QC: 4 (SBA) Wheel 150 feet: 4 (SBA) PT Plan Problem List Problem List: Activity Tolerance, Functional Strength, Safety, Balance, Gait, Transfer, Bed Mobility, ROM Treatment/Plan Treatment Plan: Continue Plan of Care Treatment Plan: Bed Mobility, Education, Functional Activity Anitra, Functional Strength, Group Therapy, Gait, Safety, Therapeutic Exercise, Transfers Treatment Duration: Dec 21, 2021 Frequency: At least 5 of 7 days/Wk (IRF) Estimated Hrs Per Day: 1.5 hours per day Patient and/or Family Agrees t: Yes Safety Risks/Education Patient Education: Gait Training, Transfer Techniques, Correct Positioning, W/C Management, Safety Issues Teaching Recipient: Patient Teaching Methods: Demonstration, Discussion Response to Teaching: Reinforcement Needed Time/GCodes Time In: 1015 Time Out: 1130 Total Billed Treatment Time: 75 Total Billed Treatment 1 visit EX 45' FA 35' EDDIE MOSS PT Dec 03, 2021 11:16
[2021-12-03 19:47] VITALS: BP 158/77
[2021-12-03] MEDS: ZOLPIDEM 5 MG (AMBIEN) TAB PO SCH (20:59)
--- NOTE | 2021-12-04 06:20 | PM&R Progress Note ---
Subjective HPI/CC On Admission Date Seen by Provider: Dec 04, 2021 Time Seen by Provider: 12:00 Subjective/Events-last exam 12/04/2021: Pt doing well Lucid thought process now Ultram for shoulder pain Bowels moved a couple of days ago will give her stool softeners 12/03/21: Pt is doing pretty well Incontinence noted Dementia issues are apparent Daughter wants to know if she can be started on dementia medication and an a ppetite stimulant, but she is just really not stable enough neurologically to start meds. Appetite stimulant is not indicated at this time. 12/02/21: Pt is doing really well Discontinued spencer catheter, she is incontinent Post void residual is minimal Will increase PO fluids Discontinue telemetry Allevyn will be placed on her bottom due to high risk for stage 1 Incontinent of stool last night so will monitor that closely 12/01/21: Pt had her spencer taken out Incontinent of urine Labs look okay Discontinue telemetry because it is afib Participating with all therapies Review of Systems General: Fatigue Neurological: Weakness Objective Exam Vital Signs Vital Signs Date Time Temp Pulse Resp B/P (MAP) Pulse Ox O2 Delivery O2 Flow Rate FiO2 12/04/21 20:39 Room Air 12/04/21 19:34 36.7 73 18 165/72 (103) 95 12/03/21 09:28 21 12/03/21 08:20 0.00 Capillary Refill : General Appearance: No Apparent Distress, WD/WN, Chronically ill, Obese HEENT: PERRL/EOMI, Normal ENT Inspection, Pharynx Normal Neck: Full Range of Motion, Normal Inspection, Non Tender, Supple, Carotid Bruit Respiratory: Chest Non Tender, Lungs Clear, Normal Breath Sounds, No Accessory Muscle Use, No Respiratory Distress Cardiovascular: Regular Rate, Rhythm, No Edema, No Gallop, No JVD, No Murmur, Normal Peripheral Pulses Gastrointestinal: Normal Bowel Sounds, No Organomegaly, No Pulsatile Mass, Non Tender, Soft Back: Normal Inspection, No CVA Tenderness, No Vertebral Tenderness Extremity: Normal Capillary Refill, Normal Inspection, Normal Range of Motion, Non Tender, No Calf Tenderness, No Pedal Edema Neurologic/Psychiatric: Alert, Oriented x3, Normal Mood/Affect, director of agronomy II-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 FIM Transfers Therapy Code Descriptions/Definitions Functional [place] Measure: 0=Not Assessed/NA 4=Minimal Assistance 1=Total Assistance 5=Supervision or Setup 2=Maximal Assistance 6=Modified [place] 3=Moderate Assistance 7=Complete IndependenceSCALE: Activities may be completed with or without assistive devices. 4-Gkeuiwswnb-mgwmcor completes the activity by him/herself with no assistance from a helper. 5-Set-up or Clean-up Assistance-helper sets up or cleans up; patient completes activity. [place] assists only prior to or following the activity. 4-Supervision or Touching Assistance-helper provides verbal cues and/or touch ing/steadying and/or contact guard assistance as patient completes activity. Assistance may be provided throughout the activity or intermittently. 3-Partial/Moderate Assistance-helper does LESS THAN HALF the effort. [place] lifts, holds or supports trunk or limbs, but provides less than half the effort. 2-Substantial/Maximal Assistance-helper does MORE THAN HALF the effort. [place] lifts or holds trunk or limbs and provides more than half the effort. 5-Ejzsraetk-hgjpdp does ALL the effort. Patient does none of the effort to complete the activity. Or, the assistance of 2 or more helpers is required for the patient to complete the activity. If activity was not attempted, code reason: 7-Patient Refused. 9-Not Applicable-not attempted and the patient did not perform the activity before the current illness, exacerbation or injury. 10-Not Attempted due to Environmental Limitations-(lack of equipment, weather restraints, etc.). 88-Not Attempted due to Medical Conditions or Safety Concerns. Roll Left to Right (QC): 2 Sit to Lying (QC): 3 Sit to Stand (QC): 3 Chair/Vac-ia-Sbxwv Xfer(QC): 3 Car Transfer (QC): 2 Gait Training Does the Patient Walk?: No and Walking Goal IS indicated Distance: 6'x3 Walk 10 feet (QC): 88 Walk 50 ft with 2 Turns(QC): 88 Walk 150 ft (QC): 88 Walking 10ft/uneven surface-QC: 88 Gait Persons Needed: 1 Gait Assistive Device: Parallel Bars Wheelchair Training Does the Pt Use a Wheelchair?: Yes Distance: 50'x2 Wheel 50 ft with 2 turns (QC): 3 Wheel 150 ft (QC): 3 Type of Wheelchair: Manual Stair Training 1 Step (curb) (QC): 88 4 Steps (QC): 88 12 Steps (QC): 88 Balance Picking up an Object (QC): 88 ADL-Treatment Eating (QC): 5 Oral Hygiene (QC): 6 Shower/Bathe Self (QC): 3 Upper Body Dressing (QC): 5 Lower Body Dressing (QC): 1 On/Off Footwear (QC): 2 (mod A) Toileting Hygiene (QC): 1 Toilet Transfer (QC): 2 Assessment/Plan Assessment and Plan Assess & Plan/Chief Complaint Assessment: CVA subacute not a tPa candidate New atrial fibrillation placed on oral anticoagulation and consult cardiology 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 Confusion now resolved Expressive aphasia much improved HTN HLP Chronic pain Osteoarthritis Cognitive decline with paranoia noted as outpatient in past 1 year Plan: Oral anticoagulation Aggressive rehab Supportive care Fall risk 12/01/21: Supportive care Monitor BP 12/02/21: Monitor BP Incontinence care 12/03/21: Monitor BP 12/04/21: Improved status Monitor closely (1) Cerebrovascular accident due to cerebral artery occlusion Status: Acute (2) Hypertension Status: Chronic (3) Osteoarthritis Status: Chronic (4) Insomnia Status: Chronic (5) Atrial fibrillation Status: Acute (6) Overactive bladder Status: Chronic (7) History of bowel resection Status: Chronic LUIS FELIPE COREAS DO Dec 04, 2021 06:20
[2021-12-04 07:53] VITALS: BP 158/87
[2021-12-04] MEDS: DOCUSATE SODIUM 100 MG (COLACE) CAP PO SCH ×2 (08:10→20:32)
[2021-12-04] MEDS: ASPIRIN 325 MG (5 GR) TABLET PO SCH (08:10)
[2021-12-04] MEDS: APIXABAN 2.5 MG (ELIQUIS) TABLET PO SCH ×2 (08:10→20:32)
[2021-12-04] MEDS: amLODIPine 2.5MG (NORVASC) TAB PO SCH (08:10)
[2021-12-04] MEDS: SENNOSIDES 8.6 MG (SENOKOT) TAB PO SCH ×2 (08:11→20:32)
--- NOTE | 2021-12-04 09:04 | Occupational Ther Daily Note ---
OT Current Status-Daily Note Subjective Pt alert, sitting in recliner. Pt agrees to therapy. Pt anxious about clothing. Mental Status/Objective Patient Orientation: Person, Place, Time ADL-Treatment Pt continues to decline taking a shower. FATIMA reminded pt that pt hasn't taken a shower since Tuesday, pt continued to decline. Pt then agrees to complete sponge bath. When set up with sponge bath, pt attempts to decline stating that she only wants to put on her other clothes. FATIMA gently reminds pt that she still needs to bathe areas due to not having showered since Tuesday. Pt then used bath pack to wash under arms, B LE's and mitch area/buttocks. Pt requests to use toilet. Using grabbars, pt pulled to stand and used grabbars to steady self with SPT, CGA for safety. Reminder to hike pants down prior to sitting on toilet. Pt able to complete hygiene with cues to thoroughly cleanse self after BM. Pt doffed clothing by self after cues to do so. Pt then sat in w/c at sink to complete grooming and oral care independently. After set up, pt able to don/doff shirt by self. Don/doff socks after set up. Donned/doffed lower body clothing by self with CGA for stability in standing to hike over hips, threaded pants over B feet/legs by self. Therapy Code Descriptions/Definitions Functional [place] Measure: 0=Not Assessed/NA 4=Minimal Assistance 1=Total Assistance 5=Supervision or Setup 2=Maximal Assistance 6=Modified [place] 3=Moderate Assistance 7=Complete IndependenceSCALE: Activities may be completed with or without assistive devices. 0-Sglhndgsbu-aphtesr completes the activity by him/herself with no assistance from a helper. 5-Set-up or Clean-up Assistance-helper sets up or cleans up; patient completes activity. [place] assists only prior to or following the activity. 4-Supervision or Touching Assistance-helper provides verbal cues and/or touching/steadying and/or contact guard assistance as patient completes activity. Assistance may be provided throughout the activity or intermittently. 3-Partial/Moderate Assistance-helper does LESS THAN HALF the effort. [place] lifts, holds or supports trunk or limbs, but provides less than half the effort. 2-Substantial/Maximal Assistance-helper does MORE THAN HALF the effort. [place] lifts or holds trunk or limbs and provides more than half the effort. 7-Mvdgfwtwz-zmqolo does ALL the effort. Patient does none of the effort to complete the activity. Or, the assistance of 2 or more helpers is required for the patient to complete the activity. If activity was not attempted, code reason: 7-Patient Refused. 9-Not Applicable-not attempted and the patient did not perform the activity before the current illness, exacerbation or injury. 10-Not Attempted due to Environmental Limitations-(lack of equipment, weather restraints, etc.). 88-Not Attempted due to Medical Conditions or Safety Concerns. Oral Hygiene (QC): 6 Bathing Location: L Arm, R Arm, L Upper Leg, R Upper Leg, L Lower Leg (including foot), R Lower Leg (including foot), Chest, Abdomen, Buttocks, Perineal Area Shower/Bathe Self (QC): 4 Upper Body Dressing (QC): 5 Lower Body Dressing (QC): 4 On/Off Footwear: 5 Toileting Hygiene (QC): 4 Toilet Transfer (QC): 4 Other Treatment Pt completed wrist flex/ext and uln/rad deviation with 2# wt, 2 sets 10 reps. Pt required verbal and physical cues to complete with correct technique and to maintain youth associate with L hand. FATIMA attempted to have pt problem solve issues that may arise at home, pt answered "I don't know" or "I am not sure". Pt able to ambulate with CGA and w/c close if pt decided to sit quickly, at parallel bars 3x's. CGA for all SPT. After session, pt sitting in recliner with call light/phone in reach. All needs met in room. OT Short Term Goals Short Term Goals Time Frame: Dec 14, 2021 Eatin Oral hygiene: 4 Toileting hygiene: 2 Shower/bathe self: 2 Upper body dressin Lower body dressin Putting on/taking off footwear: 2 OT Varnish Maker Goals Residential Goals Time Frame: Dec 28, 2021 Eating (QC): 5 Oral Hygiene (QC): 6 Toileting Hygiene (QC): 4 Shower/Bathe Self (QC): 4 Upper Body Dressing (QC): 4 Lower Body Dressing (QC): 4 On/Off Footwear (QC): 4 1=Demonstrate adherence to instructed precautions during ADL tasks. 2=Patient will verbalize/demonstrate understanding of assistive d evices/modifications for ADL. 3=Patient will improve strength/tolerance for activity to enable patient to perform ADL's. OT Education/Plan Problem List/Assessment Assessment: Decreased Activ Tolerance, Decreased Safety Aware, Decreased UE Strength, Impaired Cognition, Impaired Coordination, Impaired Funct Balance, Impaired Self-Care Skills, Restricted Funct UE ROM, Visual-Perceptual Deficit Discharge Recommendations Plan/Recommendations: Continue POC Treatment Plan/Plan of Care Patient would benefit from OT for education, treatment and training to promote independence in ADL's, mobility, safety and/or upper extremity function for ADL's. Plan of Care: ADL Retraining, Caregiver Training, Cognitive Retraining, Functional Mobility, Group Exercise/Act as Ind, UE Funct Exercise/Act, UE Neuromus Re-Ed/Coord, Visual/Perceptual Retrain, W/C Management Training Treatment Duration: Dec 28, 2021 Frequency: Modified Program (IRF) Estimated Hrs Per Day: 1 hour per day (75-90 min/day) Agreement: Yes Rehab Potential: Fair Time/GCodes Start Time: 07:30 Stop Time: 08:45 Total Time Billed (hr/min): 75 Billed Treatment Time 1 visit-ADL 3 (45 min) EX 2 (30 min) ROHIT BENTLEY Dec 04, 2021 09:04
--- NOTE | 2021-12-04 09:45 | Progress Note - Cardiology ---
Cardiology SOAP Progress Note Subjective: Sitting up in recliner States she feels "pretty good" Feels strength is improving No c/o CP, SOB or palpitations Objective: I&O/Vital Signs 12/07/21 12/07/21 12/08/21 20:34 21:00 07:33 Temp 36.7 36.7 Pulse 89 85 Resp 16 16 B/P (MAP) 121/93 (102) 141/68 (92) Pulse Ox 93 96 O2 Delivery Room Air Room Air Room Air Weight (Pounds): 155 Weight (Ounces): 6.0 Weight (Calculated Kilograms): 70.767086 Constitutional: AAO x 3, well-developed, well-nourished Respiratory: No accessory muscle use, No respiratory distress; chest expansion is symmetric, chest is bilaterally symmetric, lungs clear to auscultation Cardiovascular: irregularly irregular; No JVD; S1 and S2 Gastrointestional: No tender; soft, round, audible bowel sounds Extremities: no lower extremity edema bilateral Neurologic/Psychiatric: other (RUE 5/5, LUE 4/5. RLE 5/5, LLE 4/5) Skin: No rash on exposed areas, No ulcerations on exposed areas A/P: Assessment: 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 This area of occlusion is of unknown age.There is moderate to severe stenosis involving the distal right P1 [employer] and proximal left P2 [employer] region. There is severe stenosis involving the paraclinoid and supraclinoid left ICA regions. per CTA on 11-27-21 - Management per stroke team (Dr Lopez) - Per the ED note of 11-27-21: Multiple discussions with [facility], initial discussion was at [phone] Platt who recommended CT angiography of the brain and cervical vessels. 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 She has no "large vessel occlusion" and therefore is not a candidate for intervention. Dr. Platt was made aware of these results at 11:15 AM. She recommends permissive hypertension, holding her blood pressure medications. Daily aspirin and a head MRI. A-fib with controlled vent response - undetermined length of time - first dx on ECG of 11-27-[address] [facility] ED - advise OAC with Eliquis 2.5 mg BID has been allowed - Echo on 11/27/21: LVEF 60-65%, unspecified diastolic dysfunction, mod to sev enlargement of LA, mild CHARLEY, PASP 30-35 mmHg Hypertension/Tachycardia - advise increasing antihypertensive regimen Plan: Tachycardia and hypertensive - add BB Monitor lab from time to time DARCY DENNIS Dec 04, 2021 09:45
--- NOTE | 2021-12-04 11:32 | Speech Therapy Daily Note ---
Speech Daily Progress Note Subjective Date Seen by Provider: Dec 04, 2021 Time Seen by Provider: 09:45 The patient was seated upright in her recliner, awake and alert upon entrance to her room by the clinician. The patient greeted the clinician appropriately and was agreeable to participation in the cognitive linguistic treatment session. Objective - Orientation: The patient remains independently oriented to month, day of week, date, and year. - Awareness of Current Deficits/Functional Recall: The clinician completes a review with the patient regarding rationale for hospitalization, current deficits, and barriers towards discharge home (as the patient frequently request s to discharge). The patient was unable to recall why she was admitted or why her called the ambulance stating, "I don't know, he just couldn't get it, get it to do what he wanted." The patient was unable to independently state awareness of her left sided weakness stating, "I can't think of anything." when the clinician asks specific questions regarding impairments. Per patient, "Oh, well not as much. It's doing fine." The clinician discussed the patient's diagnosis of a stroke. At this time, the patient grew agitated stating, "we've already done this, why do we keep doing this." The clinician brought the patient's awareness to her inability to recall why she is currently admitted to the rehabilitation unit and her statements of ability to independently walk, transfer, and complete tasks. Per patient, "well, I could probably use a little help." The clinician is concerned regarding the patient's suspected and documented dementia diagnosis and does believe a decline in cognitive function (specifically short-term memory) is present. The clinician believes the patient's agitation may be secondary to intermittent awareness of deficits and frustration in her inability to recall accurate responses. Assessment Assessment Current Status: Poor Progress Treatment Plan Continue Plan of Care Speech Short Term Goals Short Term Goals Short Term Goals 1. The patient will demonstrated 80% accuracy on memory exercises with mild clinician verbal and visual cueing. Time Frame-STG: One Week. Speech Assisted Goals Electronics Assembler Goals 1. The patient will improve cognitive linguistic skills for a safe discharge to the least restricted environment. Time Frame: Two Weeks. Speech-Plan Treatment Plan Speech Therapy Treatment Plan: Continue Plan of Care Treatment Duration: Dec 14, 2021 Frequency: Modified Program (IRF) (Three to five times per week.) Estimated Hrs Per Day: .5 hour per day Rehab Potential: Fair Safety Risks/Education Teaching Recipient: Patient Teaching Methods: Discussion Response to Teaching: Reinforcement Needed Education Topics Provided: Education re: Admission, Rehabilitation, Current Impairments Time Speech Therapy Time In: 09:45 Speech Therapy Time Out: 10:15 Total Billed Time: 30 Billed Treatment Time SRINIVASAN Woods [facility] Dec 04, 2021 11:32
--- NOTE | 2021-12-04 12:37 | Progress Note - Cardiology ---
Cardiology SOAP Progress Note Subjective: No cp or palp or syncope No shortness of breath No n/v/d Gen and focal weaknesses are improving Objective: I&O/Vital Signs 12/04/21 12/04/21 07:53 08:34 Temp 36.4 Pulse 101 Resp 18 B/P (MAP) 158/87 (110) Pulse Ox 96 O2 Delivery Room Air Room Air 12/04/21 00:00 Intake Total 250 ml Output Total 250 ml Balance 0 ml Weight (Pounds): 155 Weight (Ounces): 6.0 Weight (Calculated Kilograms): 70.630337 Constitutional: AAO x 3, well-developed, well-nourished Respiratory: No accessory muscle use, No respiratory distress; chest expansion is symmetric, chest is bilaterally symmetric, lungs clear to auscultation Cardiovascular: irregularly irregular; No JVD; S1 and S2 Gastrointestional: No tender; soft, round, audible bowel sounds Extremities: no lower extremity edema bilateral Neurologic/Psychiatric: other (RUE 5/5, LUE 4/5. RLE 5/5, LLE 4/5) Skin: No rash on exposed areas, No ulcerations on exposed areas A/P: Assessment: 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 This area of occlusion is of unknown age.There is moderate to severe stenosis involving the distal right P1 PSYCHIATRIC TECH and proximal left P2 PSYCHIATRIC TECH region. There is severe stenosis involving the paraclinoid and supraclinoid left ICA regions. per CTA on 11-27-21 - Management per stroke team (Dr Lopez) - Per the ED note of 11-27-21: Multiple discussions with [facility], initial discussion was at [phone] Platt who recommended CT angiography of the brain and cervical vessels. 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 She has no "large vessel occlusion" and th erefore is not a candidate for intervention. Dr. Platt was made aware of these results at 11:15 AM. She recommends permissive hypertension, holding her blood pressure medications. Daily aspirin and a head MRI. A-fib with controlled vent response - undetermined length of time - first dx on ECG of 6-10-22 at the [facility] ED - advise OAC with Eliquis 5 mg BID if ok with Dr Lopez - Echo on 11/27/21: LVEF 60-65%, unspecified diastolic dysfunction, mod to sev enlargement of LA, mild CHARLEY, PASP 30-35 mmHg Hypertension/Tachycardia - advise increasing antihypertensive regimen Plan: Tachycardia and hypertensive - add BB Monitor lab from time to time LEONARD ALVAREZ MD FACP [facility] Dec 04, 2021 12:37
--- NOTE | 2021-12-04 12:57 | Physical Therapy Daily Note ---
PT Daily Note-Current Subjective Upon arrival, pt was seated in recliner. Pt states that she sleep better than before. Pt agrees to PT. Pain Comment: pt reports no pain. Mental Status Patient Orientation: Person, Time, Situation Transfers SCALE: Activities may be completed with or without assistive devices. 0-Geidwtjmhz-rsmurau completes the activity by him/herself with no assistance from a helper. 5-Set-up or Clean-up Assistance-helper sets up or cleans up; patient completes activity. [place] assists only prior to or following the activity. 4-Supervision or Touching Assistance-helper provides verbal cues and/or touching/steadying and/or contact guard assistance as patient completes activity. Assistance may be provided throughout the activity or intermittently. 3-Partial/Moderate Assistance-helper does LESS THAN HALF the effort. [place] lifts, holds or supports trunk or limbs, but provides less than half the effort. 2-Substantial/Maximal Assistance-helper does MORE THAN HALF the effort. [place] lifts or holds trunk or limbs and provides more than half the effort. 3-Qbagwpigz-ipnahr does ALL the effort. Patient does none of the effort to complete the activity. Or, the assistance of 2 or more helpers is required for the patient to complete the activity. If activity was not attempted, code reason: 7-Patient Refused. 9-Not Applicable-not attempted and the patient did not perform the activity before the current illness, exacerbation or injury. 10-Not Attempted due to Environmental Limitations-(lack of equipment, weather restraints, etc.). 88-Not Attempted due to Medical Conditions or Safety Concerns. Sit to Stand (QC): 4 Weight Bearing Full Weight Bearing Full Weight Bearing Gait Training Does the Patient Walk?: Yes Distance: 86' Walk 10 feet (QC): 4 Walk 50 ft with 2 Turns(QC): 4 Gait Persons Needed: 1 Gait Assistive Device: FWW pt ambulated from room to and around [facility] to room. Pt ambulated with a limp, but demonstrated no LOB. Pt had trouble staying close to FWW, and stepping in FWW. Pt required RB during ambulation. Pt ambulated with WC behind. Exercises Supine Ex: Ankle pumps, Glut sets, Heel Slides, Short Arc Quads, Straight leg raise, Hip abd/add Supine Reps: 20 Seated Therapy Exercises: Ankle pumps, Long arc quads, Hip flexion, Hamstring Curls, Hip abd/add Seated Reps: 20 Treatments Pt performed and completed all Exs listed above. Pt ambulated from room around lobby and back to room. Once PT was concluded, pt was seated in recliner with call light and tray in reach and all needs met. Assessment Current Status: Good Progress Pt would benefit from continued PT to improve on GT, activity tolerance and strength PT Short Term Goals Short Term Goals Time Frame: Dec 07, 2021 Roll Left & Right: 3 (modA) Sit to lyin (moA) Lying to sitting on side of be: 3 (modA) Sit to stand: 3 (modA) Chair/oym-dm-fpbnb transfer: 3 (modA) PT Dance Director Goals Dance Director Goals PT Dance Director Goals Time Frame: Dec 21, 2021 Roll Left & Right (QC): 3 (Jonathan) Sit to Lying (QC): 3 (Jonathan) Lying-Sitting on Side/Bed(QC): 3 (Jonathan) Sit to Stand (QC): 3 (Jonathan) Chair/Flj-di-Aqsdq Xfer(QC): 3 (Jonathan) Toilet Transfer (QC): 3 (Jonathan) Car Transfer (QC): 3 (Jonathan) Does the Patient Walk: No and Walking Goal IS indicated Walk 10 feet (QC): 3 (modA) Walk 50ft with 2 Turns (QC): 88 Walk 150 ft (QC): 88 Walking 10ft on Uneven Surface: 88 1 Step (curb) (QC): 88 4 Steps (QC): 88 12 Steps (QC): 88 Picking up an Object (QC): 88 Wheel 50 feet with 2 turns (QC: 4 (SBA) Wheel 150 feet: 4 (SBA) PT Plan Problem List Problem List: Activity Tolerance, Functional Strength, Gait Treatment/Plan Treatment Plan: Continue Plan of Care Treatment Plan: Bed Mobility, Education, Functional Activity Anitra, Functional Strength, Group Therapy, Gait, Safety, Therapeutic Exercise, Transfers Treatment Duration: Dec 21, 2021 Frequency: At least 5 of 7 days/Wk (IRF) Estimated Hrs Per Day: 1.5 hours per day Patient and/or Family Agrees t: Yes Safety Risks/Education Patient Education: Transfer Techniques, Safety Issues Teaching Recipient: Patient Teaching Methods: Discussion Response to Teaching: Verbalize Understanding Time/GCodes Time In: 1015 Time Out: 1115 Total Billed Treatment Time: 60 Total Billed Treatment 1, 3 (40) EX, (20) GT CHRISTOPHE ADAMS DIGITAL PROJECT MANAGER Dec 04, 2021 12:57
--- NOTE | 2021-12-04 15:48 | Physical Therapy Daily Note ---
PT Daily Note-Current Subjective Upon arrival, pt was seated in recliner. Pt states she is having a good afternoon. Pt agrees to PT. Pain Comment: Pt reports no pain. Mental Status Patient Orientation: Person, Time, Situation Transfers SCALE: Activities may be completed with or without assistive devices. 9-Aricunnsfi-icbmdop completes the activity by him/herself with no assistance from a helper. 5-Set-up or Clean-up Assistance-helper sets up or cleans up; patient completes activity. [place] assists only prior to or following the activity. 4-Supervision or Touching Assistance-helper provides verbal cues and/or touching/steadying and/or contact guard assistance as patient completes activity. Assistance may be provided throughout the activity or intermittently. 3-Partial/Moderate Assistance-helper does LESS THAN HALF the effort. [place] lifts, holds or supports trunk or limbs, but provides less than half the effort. 2-Substantial/Maximal Assistance-helper does MORE THAN HALF the effort. [place] lifts or holds trunk or limbs and provides more than half the effort. 1-Rhgwrfkjj-wmhwij does ALL the effort. Patient does none of the effort to complete the activity. Or, the assistance of 2 or more helpers is required for the patient to complete the activity. If activity was not attempted, code reason: 7-Patient Refused. 9-Not Applicable-not attempted and the patient did not perform the activity before the current illness, exacerbation or injury. 10-Not Attempted due to Environmental Limitations-(lack of equipment, weather restraints, etc.). 88-Not Attempted due to Medical Conditions or Safety Concerns. Weight Bearing Full Weight Bearing Full Weight Bearing Gait Training Does the Patient Walk?: No and Walking Goal IS indicated Exercises Supine Ex: Ankle pumps (20), Heel Slides (15), Hip abd/add (15) Treatments Pt performed and completed all Exs listed above. PT educates and answers pts questions how to build her endurance. Once PT was concluded, pt was seated in recliner with call light and tray in reach and all needs met. Assessment Current Status: Good Progress Pt would benefit from continued pT to improve on GT and activity tolerance. PT Short Term Goals Short Term Goals Time Frame: Dec 07, 2021 Roll Left & Right: 3 (modA) Sit to lyin (moA) Lying to sitting on side of be: 3 (modA) Sit to stand: 3 (modA) Chair/giy-su-lmwmk transfer: 3 (modA) PT Marketing Director Goals Halfway Goals PT Halfway Goals Time Frame: Dec 21, 2021 Roll Left & Right (QC): 3 (Jonathan) Sit to Lying (QC): 3 (Jonathan) Lying-Sitting on Side/Bed(QC): 3 (Jonathan) Sit to Stand (QC): 3 (Jonathan) Chair/Tul-mv-Jydns Xfer(QC): 3 (Jonathan) Toilet Transfer (QC): 3 (Jonathan) Car Transfer (QC): 3 (Jonathan) Does the Patient Walk: No and Walking Goal IS indicated Walk 10 feet (QC): 3 (modA) Walk 50ft with 2 Turns (QC): 88 Walk 150 ft (QC): 88 Walking 10ft on Uneven Surface: 88 1 Step (curb) (QC): 88 4 Steps (QC): 88 12 Steps (QC): 88 Picking up an Object (QC): 88 Wheel 50 feet with 2 turns (QC: 4 (SBA) Wheel 150 feet: 4 (SBA) PT Plan Problem List Problem List: Activity Tolerance, Gait Treatment/Plan Treatment Plan: Continue Plan of Care Treatment Plan: Bed Mobility, Education, Functional Activity Anitra, Functional Strength, Group Therapy, Gait, Safety, Therapeutic Exercise, Transfers Treatment Duration: Dec 21, 2021 Frequency: At least 5 of 7 days/Wk (IRF) Estimated Hrs Per Day: 1.5 hours per day Patient and/or Family Agrees t: Yes Time/GCodes Time In: 1522 Time Out: 1540 Total Billed Treatment Time: 18 Total Billed Treatment 1, Ex (18) CHRISTOPHE ADAMS RESOURCE RECOVERY SPECIALIST Dec 04, 2021 15:48
[2021-12-04 19:34] VITALS: BP_SYST 130; BP_SYST 165; BP_DIAS 72; BP_DIAS 86
[2021-12-04] MEDS: ZOLPIDEM 5 MG (AMBIEN) TAB PO SCH (20:32)
--- NOTE | 2021-12-05 06:11 | PM&R Progress Note ---
Subjective HPI/CC On Admission Date Seen by Provider: Dec 05, 2021 Time Seen by Provider: 11:00 Subjective/Events-last exam 12/05/2021: Patient had a really good mood Wants to go home and asking again over and over the same question so her cognition has variability No falls Moving left side really well 12/04/2021: Pt doing well Lucid thought process now Ultram for shoulder pain Bowels moved a couple of days ago will give her stool softeners 12/03/21: Pt is doing pretty well Incontinence noted Dementia issues are apparent Daughter wants to know if she can be started on dementia medication and an appetite stimulant, but she is just really not stable enough neurologically to start meds. Appetite stimulant is not indicated at this time. 12/02/21: Pt is doing really well Discontinued spencer catheter, she is incontinent Post void residual is minimal Will increase PO fluids Discontinue telemetry Allevyn will be placed on her bottom due to high risk for stage 1 Incontinent of stool last night so will monitor that closely 12/01/21: Pt had her spencer taken out Incontinent of urine Labs look okay Discontinue telemetry because it is afib Participating with all therapies Review of Systems General: Fatigue Neurological: Weakness Objective Exam Vital Signs Vital Signs Date Time Temp Pulse Resp B/P (MAP) Pulse Ox O2 Delivery O2 Flow Rate FiO2 12/05/21 09:27 Room Air 12/05/21 07:39 36.7 87 20 119/73 (88) 96 12/03/21 09:28 21 12/03/21 08:20 0.00 Capillary Refill : General Appearance: No Apparent Distress, WD/WN, Chronically ill, Obese HEENT: PERRL/EOMI, Normal ENT Inspection, Pharynx Normal Neck: Full Range of Motion, Normal Inspection, Non Tender, Supple, Carotid Bruit Respiratory: Chest Non Tender, Lungs Clear, Normal Breath Sounds, No Accessory Muscle Use, No Respiratory Distress Cardiovascular: Regular Rate, Rhythm, No Edema, No Gallop, No JVD, No Murmur, Normal Peripheral Pulses Gastrointestinal: Normal Bowel Sounds, No Organomegaly, No Pulsatile Mass, Non Tender, Soft Back: Normal Inspection, No CVA Tenderness, No Vertebral Tenderness Extremity: Normal Capillary Refill, Normal Inspection, Normal Range of Motion, Non Tender, No Calf Tenderness, No Pedal Edema Neurologic/Psychiatric: Alert, Oriented x3, Normal Mood/Affect, egg caser II-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 FIM Transfers Therapy Code Descriptions/Definitions Functional [place] Measure: 0=Not Assessed/NA 4=Minimal Assistance 1=Total Assistance 5=Supervision or Setup 2=Maximal Assistance 6=Modified [place] 3=Moderate Assistance 7=Complete IndependenceSCALE: Activities may be completed with or without assistive devices. 2-Qhevvufodf-ovtjjuc completes the activity by him/herself with no assistance from a helper. 5-Set-up or Clean-up Assistance-helper sets up or cleans up; patient completes activity. [place] assists only prior to or following the activity. 4-Supervision or Touching Assistance-helper provides verbal cues and/or touching/steadying and/or contact guard assistance as patient completes activity. Assistance may be provided throughout the activity or intermittently. 3-Partial/Moderate Assistance-helper does LESS THAN HALF the effort. [place] lifts, holds or supports trunk or limbs, but provides less than half the effort. 2-Substantial/Maximal Assistance-helper does MORE THAN HALF the effort. [place] lifts or holds trunk or limbs and provides more than half the effort. 9-Uddzqxegf-hdeanv does ALL the effort. Patient does none of the effort to complete the activity. Or, the assistance of 2 or more helpers is required for the patient to complete the activity. If activity was not attempted, code reason: 7-Patient Refused. 9-Not Applicable-not attempted and the patient did not perform the activity before the current illness, exacerbation or injury. 10-Not Attempted due to Environmental Limitations-(lack of equipment, weather restraints, etc.). 88-Not Attempted due to Medical Conditions or Safety Concerns. Roll Left to Right (QC): 2 Sit to Lying (QC): 3 Sit to Stand (QC): 4 Chair/Qkw-et-Qxgnn Xfer(QC): 3 Car Transfer (QC): 2 Gait Training Does the Patient Walk?: No and Walking Goal IS indicated Distance: 86' Walk 10 feet (QC): 4 Walk 50 ft with 2 Turns(QC): 4 Walk 150 ft (QC): 88 Walking 10ft/uneven surface-QC: 88 Gait Persons Needed: 1 Gait Assistive Device: FWW Wheelchair Training Does the Pt Use a Wheelchair?: Yes Distance: 50'x2 Wheel 50 ft with 2 turns (QC): 3 Wheel 150 ft (QC): 3 Type of Wheelchair: Manual Stair Training 1 Step (curb) (QC): 88 4 Steps (QC): 88 12 Steps (QC): 88 Balance Picking up an Object (QC): 88 ADL-Treatment Eating (QC): 5 Oral Hygiene (QC): 6 Bathing Location: L Arm, R Arm, L Upper Leg, R Upper Leg, L Lower Leg (including foot), R Lower Leg (including foot), Chest, Abdomen, Buttocks, Perineal Area Shower/Bathe Self (QC): 4 Upper Body Dressing (QC): 5 Lower Body Dressing (QC): 4 On/Off Footwear (QC): 5 Toileting Hygiene (QC): 4 Toilet Transfer (QC): 4 Assessment/Plan Assessment and Plan Assess & Plan/Chief Complaint Assessment: CVA subacute not a tPa candidate New atrial fibrillation placed on oral anticoagulation and consult cardiology 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 Confusion now resolved Expressive aphasia much improved HTN HLP Chronic pain Osteoarthritis Cognitive decline with paranoia noted as outpatient in past 1 year Plan: Oral anticoagulation Aggressive rehab Supportive care Fall risk 12/01/21: Supportive care Monitor BP 12/02/21: Monitor BP Incontinence care 12/03/21: Monitor BP 12/04/21: Improved status Monitor closely 12/05/2021: Supportive care Fall risk (1) Cerebrovascular accident due to cerebral artery occlusion Status: Acute (2) Hypertension Status: Chronic (3) Osteoarthritis Status: Chronic (4) Insomnia Status: Chronic (5) Atrial fibrillation Status: Acute (6) Overactive bladder Status: Chronic (7) History of bowel resection Status: Chronic LUIS FELIPE COREAS DO Dec 05, 2021 06:11
[2021-12-05 07:39] VITALS: BP 119/73
[2021-12-05] MEDS: amLODIPine 2.5MG (NORVASC) TAB PO SCH (08:38)
[2021-12-05] MEDS: ASPIRIN 325 MG (5 GR) TABLET PO SCH (08:39)
[2021-12-05] MEDS: SENNOSIDES 8.6 MG (SENOKOT) TAB PO SCH ×2 (08:39→20:27)
[2021-12-05] MEDS: polyethylene glycoL POWDER 17 GM (MIRALAX) PACK PO PRN (08:39)
[2021-12-05] MEDS: APIXABAN 2.5 MG (ELIQUIS) TABLET PO SCH ×2 (08:39→20:27)
[2021-12-05] MEDS: DOCUSATE SODIUM 100 MG (COLACE) CAP PO SCH ×2 (08:39→20:27)
--- NOTE | 2021-12-05 09:44 | Physical Therapy Daily Note ---
PT Daily Note-Current Subjective Pt. up in recliner, agrees to Rx. Pain Location: No Pain Reported Mental Status Patient Orientation: Confused Transfers SCALE: Activities may be completed with or without assistive devices. 8-Qstnfbfqlb-oizplde completes the activity by him/herself with no assistance from a helper. 5-Set-up or Clean-up Assistance-helper sets up or cleans up; patient completes activity. [place] assists only prior to or following the activity. 4-Supervision or Touching Assistance-helper provides verbal cues and/or touching/steadying and/or contact guard assistance as patient completes activity . Assistance may be provided throughout the activity or intermittently. 3-Partial/Moderate Assistance-helper does LESS THAN HALF the effort. [place] lifts, holds or supports trunk or limbs, but provides less than half the effort. 2-Substantial/Maximal Assistance-helper does MORE THAN HALF the effort. [place] lifts or holds trunk or limbs and provides more than half the effort. 7-Dzljwnnwq-wggsga does ALL the effort. Patient does none of the effort to complete the activity. Or, the assistance of 2 or more helpers is required for the patient to complete the activity. If activity was not attempted, code reason: 7-Patient Refused. 9-Not Applicable-not attempted and the patient did not perform the activity before the current illness, exacerbation or injury. 10-Not Attempted due to Environmental Limitations-(lack of equipment, weather restraints, etc.). 88-Not Attempted due to Medical Conditions or Safety Concerns. sit to stands and SPTs x 3 to left and right min assist and many cues for left f oot to advance etc and efficient approach to chair as pt. tends to sit before reaching destination fully Weight Bearing Full Weight Bearing Full Weight Bearing Gait Training Gait Assistive Device: FWW 6-8 ft for and back min asst and VCs with FWW Exercises Seated Therapy Exercises: Ankle pumps, Sit to stand, Long arc quads, Hip flexion, Hip abd/add Seated Reps: 15 Treatments up in chair after above rx with call sánchez and ph at side and alarm insitu Assessment Current Status: Good Progress PT Short Term Goals Short Term Goals Time Frame: Dec 07, 2021 Roll Left & Right: 3 (modA) Sit to lyin (moA) Lying to sitting on side of be: 3 (modA) Sit to stand: 3 (modA) Chair/doe-wr-joxrx transfer: 3 (modA) PT Aluminum Molding Machine Operator Goals Aluminum Molding Machine Operator Goals PT [facility] Goals Time Frame: Dec 21, 2021 Roll Left & Right (QC): 3 (Jonathan) Sit to Lying (QC): 3 (Jonathan) Lying-Sitting on Side/Bed(QC): 3 (Jonathan) Sit to Stand (QC): 3 (Jonathan) Chair/Khj-ve-Jwezm Xfer(QC): 3 (Jonathan) Toilet Transfer (QC): 3 (Jonathan) Car Transfer (QC): 3 (Jonathan) Does the Patient Walk: No and Walking Goal IS indicated Walk 10 feet (QC): 3 (modA) Walk 50ft with 2 Turns (QC): 88 Walk 150 ft (QC): 88 Walking 10ft on Uneven Surface: 88 1 Step (curb) (QC): 88 4 Steps (QC): 88 12 Steps (QC): 88 Picking up an Object (QC): 88 Wheel 50 feet with 2 turns (QC: 4 (SBA) Wheel 150 feet: 4 (SBA) PT Plan Treatment/Plan Treatment Plan: Continue Plan of Care Treatment Plan: Bed Mobility, Education, Functional Activity Anitra, Functional Strength, Group Therapy, Gait, Safety, Therapeutic Exercise, Transfers Treatment Duration: Dec 21, 2021 Frequency: At least 5 of 7 days/Wk (IRF) Estimated Hrs Per Day: 1.5 hours per day Patient and/or Family Agrees t: Yes Safety Risks/Education Patient Education: Transfer Techniques, Correct Positioning, Safety Issues Teaching Recipient: Patient Teaching Methods: Demonstration, Discussion Response to Teaching: Return Demonstration, Reinforcement Needed Time/GCodes Time In: 845 Time Out: 910 Total Billed Treatment Time: 25 Total Billed Treatment 1,FA17m,EX8m NATALIE LADD PART TIME RECEPTIONIST Dec 05, 2021 09:44
[2021-12-05] MEDS: ZOLPIDEM 5 MG (AMBIEN) TAB PO SCH (20:27)
[2021-12-05 21:03] VITALS: BP 112/72
--- NOTE | 2021-12-06 07:13 | PM&R Progress Note ---
Subjective HPI/CC On Admission Date Seen by Provider: Dec 06, 2021 Time Seen by Provider: 12:00 Subjective/Events-last exam 12/06/21: Patient doing well No pain is reported Left side is moving really well Asked again why she cannot go home 12/05/2021: Patient had a really good mood Wants to go home and asking again over and over the same question so her cognition has variability No falls Moving left side really well 12/04/2021: Pt doing well Lucid thought process now Ultram for shoulder pain Bowels moved a couple of days ago will give her stool softeners 12/03/21: Pt is doing pretty well Incontinence noted Dementia issues are apparent Daughter wants to know if she can be started on dementia medication and an appetite stimulant, but she is just really not stable enough neurologically to start meds. Appetite stimulant is not indicated at this time. 12/02/21: Pt is doing really well Discontinued spencer catheter, she is incontinent Post void residual is minimal Will increase PO fluids Discontinue telemetry Allevyn will be placed on her bottom due to high risk for stage 1 Incontinent of stool last night so will monitor that closely 12/01/21: Pt had her spencer taken out Incontinent of urine Labs look okay Discontinue telemetry because it is afib Participating with all therapies Review of Systems Neurological: Weakness, Incoordination Objective Exam Vital Signs Vital Signs Date Time Temp Pulse Resp B/P (MAP) Pulse Ox O2 Delivery O2 Flow Rate FiO2 12/06/21 09:33 Room Air 12/06/21 07:30 36.7 90 18 126/59 (81) 97 12/03/21 09:28 21 12/03/21 08:20 0.00 Capillary Refill : General Appearance: No Apparent Distress, WD/WN, Chronically ill, Obese HEENT: PERRL/EOMI, Normal ENT Inspection, Pharynx Normal Neck: Full Range of Motion, Normal Inspection, Non Tender, Supple, Carotid Bruit Respiratory: Chest Non Tender, Lungs Clear, Normal Breath Sounds, No Accessory Muscle Use, No Respiratory Distress Cardiovascular: Regular Rate, Rhythm, No Edema, No Gallop, No JVD, No Murmur, Normal Peripheral Pulses Gastrointestinal: Normal Bowel Sounds, No Organomegaly, No Pulsatile Mass, Non Tender, Soft Back: Normal Inspection, No CVA Tenderness, No Vertebral Tenderness Extremity: Normal Capillary Refill, Normal Inspection, Normal Range of Motion, Non Tender, No Calf Tenderness, No Pedal Edema Neurologic/Psychiatric: Alert, Oriented x3, Normal Mood/Affect, 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 FIM Transfers Therapy Code Descriptions/Definitions Functional [place] Measure: 0=Not Assessed/NA 4=Minimal Assistance 1=Total Assistance 5=Supervision or Setup 2=Maximal Assistance 6=Modified [place] 3=Moderate Assistance 7=Complete IndependenceSCALE: Activities may be completed with or without assistive devices. 3-Xxuskxebsx-bnafpku completes the activity by him/herself with no assistance from a helper. 5-Set-up or Clean-up Assistance-helper sets up or cleans up; patient completes activity. [place] assists only prior to or following the activity. 4-Supervision or Touching Assistance-helper provides verbal cues and/or touching/steadying and/or contact guard assistance as patient completes activity. Assistance may be provided throughout the activity or intermittently. 3-Partial/Moderate Assistance-helper does LESS THAN HALF the effort. [place] lifts, holds or supports trunk or limbs, but provides less than half the effort. 2-Substantial/Maximal Assistance-helper does MORE THAN HALF the effort. [place] lifts or holds trunk or limbs and provides more than half the effort. 8-Xspexlfwv-tiqmdg does ALL the effort. Patient does none of the effort to complete the activity. Or, the assistance of 2 or more helpers is required for the patient to complete the activity. If activity was not attempted, code reason: 7-Patient Refused. 9-Not Applicable-not attempted and the patient did not perform the activity before the current illness, exacerbation or injury. 10-Not Attempted due to Environmental Limitations-(lack of equipment, weather restraints, etc.). 88-Not Attempted due to Medical Conditions or Safety Concerns. Roll Left to Right (QC): 2 Sit to Lying (QC): 3 Sit to Stand (QC): 4 Chair/Wkh-tx-Nqpjg Xfer(QC): 3 Car Transfer (QC): 2 Gait Training Does the Patient Walk?: No and Walking Goal IS indicated Distance: 86' Walk 10 feet (QC): 4 Walk 50 ft with 2 Turns(QC): 4 Walk 150 ft (QC): 88 Walking 10ft/uneven surface-QC: 88 Gait Persons Needed: 1 Gait Assistive Device: FWW Wheelchair Training Does the Pt Use a Wheelchair?: Yes Distance: 50'x2 Wheel 50 ft with 2 turns (QC): 3 Wheel 150 ft (QC): 3 Type of Wheelchair: Manual Stair Training 1 Step (curb) (QC): 88 4 Steps (QC): 88 12 Steps (QC): 88 Balance Picking up an Object (QC): 88 ADL-Treatment Eating (QC): 5 Oral Hygiene (QC): 6 Bathing Location: L Arm, R Arm, L Upper Leg, R Upper Leg, L Lower Leg (including foot), R Lower Leg (including foot), Chest, Abdomen, Buttocks, Perineal Area Shower/Bathe Self (QC): 4 Upper Body Dressing (QC): 5 Lower Body Dressing (QC): 4 On/Off Footwear (QC): 5 Toileting Hygiene (QC): 4 Toilet Transfer (QC): 4 Assessment/Plan Assessment and Plan Assess & Plan/Chief Complaint Assessment: CVA subacute not a tPa candidate New atrial fibrillation placed on oral anticoagulation and consult cardiology 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 Confusion now resolved Expressive aphasia much improved HTN HLP Chronic pain Osteoarthritis Cognitive decline with paranoia noted as outpatient in past 1 year Plan: Oral anticoagulation Aggressive rehab Supportive care Fall risk 12/01/21: Supportive care Monitor BP 12/02/21: Monitor BP Incontinence care 12/03/21: Monitor BP 12/04/21: Improved status Monitor closely 12/05/2021: Supportive care Fall risk 12/06/21: Ultram for pain as she takes at home No other concerns (1) Cerebrovascular accident due to cerebral artery occlusion Status: Acute (2) Hypertension Status: Chronic (3) Osteoarthritis Status: Chronic (4) Insomnia Status: Chronic (5) Atrial fibrillation Status: Acute (6) Overactive bladder Status: Chronic (7) History of bowel resection Status: Chronic LUIS FELIPE COREAS DO Dec 06, 2021 07:13
[2021-12-06 07:30] VITALS: BP 126/59
[2021-12-06] MEDS: DOCUSATE SODIUM 100 MG (COLACE) CAP PO SCH ×2 (08:14→20:40)
[2021-12-06] MEDS: ASPIRIN 325 MG (5 GR) TABLET PO SCH (08:14)
[2021-12-06] MEDS: SENNOSIDES 8.6 MG (SENOKOT) TAB PO SCH ×2 (08:15→20:43)
[2021-12-06] MEDS: APIXABAN 2.5 MG (ELIQUIS) TABLET PO SCH ×2 (08:15→20:41)
[2021-12-06] MEDS: amLODIPine 2.5MG (NORVASC) TAB PO SCH (08:17)
[2021-12-06 19:59] VITALS: BP 144/69
[2021-12-06] MEDS: ZOLPIDEM 5 MG (AMBIEN) TAB PO SCH (20:40)
--- NOTE | 2021-12-07 07:11 | PM&R Progress Note ---
Subjective HPI/CC On Admission Date Seen by Provider: Dec 07, 2021 Time Seen by Provider: 10:00 Subjective/Events-last exam 12/07/21: Patient doing well Daughter and son at the bedside and we talked about the need to stay as long as possible to gain strength Memory loss discussed and will allow CVA recovery until we entertain that No pain 12/06/21: Patient doing well No pain is reported Left side is moving really well Asked again why she cannot go home 12/05/2021: Patient had a really good mood Wants to go home and asking again over and over the same question so her cognition has variability No falls Moving left side really well 12/04/2021: Pt doing well Lucid thought process now Ultram for shoulder pain Bowels moved a couple of days ago will give her stool softeners 12/03/21: Pt is doing pretty well Incontinence noted Dementia issues are apparent Daughter wants to know if she can be started on dementia medication and an appetite stimulant, but she is just really not stable enough neurologically to start meds. Appetite stimulant is not indicated at this time. 12/02/21: Pt is doing really well Discontinued spencer catheter, she is incontinent Post void residual is minimal Will increase PO fluids Discontinue telemetry Allevyn will be placed on her bottom due to high risk for stage 1 Incontinent of stool last night so will monitor that closely 12/01/21: Pt had her spencer taken out Incontinent of urine Labs look okay Discontinue telemetry because it is afib Participating with all therapies Review of Systems General: Fatigue, Malaise Neurological: Weakness, Incoordination Objective Exam Vital Signs Vital Signs Date Time Temp Pulse Resp B/P (MAP) Pulse Ox O2 Delivery O2 Flow Rate FiO2 12/07/21 09:00 Room Air 12/07/21 07:38 36.5 87 16 162/67 (98) 98 12/03/21 09:28 21 12/03/21 08:20 0.00 Capillary Refill : General Appearance: No Apparent Distress, WD/WN, Chronically ill, Obese HEENT: PERRL/EOMI, Normal ENT Inspection, Pharynx Normal Neck: Full Range of Motion, Normal Inspection, Non Tender, Supple, Carotid Bruit Respiratory: Chest Non Tender, Lungs Clear, Normal Breath Sounds, No Accessory Muscle Use, No Respiratory Distress Cardiovascular: Regular Rate, Rhythm, No Edema, No Gallop, No JVD, No Murmur, Normal Peripheral Pulses Gastrointestinal: Normal Bowel Sounds, No Organomegaly, No Pulsatile Mass, Non Tender, Soft Back: Normal Inspection, No CVA Tenderness, No Vertebral Tenderness Extremity: Normal Capillary Refill, Normal Inspection, Normal Range of Motion, Non Tender, No Calf Tenderness, No Pedal Edema Neurologic/Psychiatric: Alert, Oriented x3, Normal Mood/Affect, 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 FIM Transfers Therapy Code Descriptions/Definitions Functional [place] Measure: 0=Not Assessed/NA 4=Minimal Assistance 1=Total Assistance 5=Supervision or Setup 2=Maximal Assistance 6=Modified [place] 3=Moderate Assistance 7=Complete IndependenceSCALE: Activities may be completed with or without assistive devices. 2-Cxhtrfspod-seenghr completes the activity by him/herself with no assistance from a helper. 5-Set-up or Clean-up Assistance-helper sets up or cleans up; patient completes activity. [place] assists only prior to or following the activity. 4-Supervision or Touching Assistance-helper provides verbal cues and/or touching/steadying and/or contact guard assistance as patient completes activity. Assistance may be provided throughout the activity or intermittently. 3-Partial/Moderate Assistance-helper does LESS THAN HALF the effort. [place] lifts, holds or supports trunk or limbs, but provides less than half the effort. 2-Substantial/Maximal Assistance-helper does MORE THAN HALF the effort. [place] lifts or holds trunk or limbs and provides more than half the effort. 1-Pmjhmhfhm-hnqhna does ALL the effort. Patient does none of the effort to complete the activity. Or, the assistance of 2 or more helpers is required for the patient to complete the activity. If activity was not attempted, code reason: 7-Patient Refused. 9-Not Applicable-not attempted and the patient did not perform the activity before the current illness, exacerbation or injury. 10-Not Attempted due to Environmental Limitations-(lack of equipment, weather restraints, etc.). 88-Not Attempted due to Medical Conditions or Safety Concerns. Roll Left to Right (QC): 2 Sit to Lying (QC): 3 Sit to Stand (QC): 4 Chair/Anp-jb-Bysfw Xfer(QC): 3 Car Transfer (QC): 2 Gait Training Does the Patient Walk?: No and Walking Goal IS indicated Distance: 86' Walk 10 feet (QC): 4 Walk 50 ft with 2 Turns(QC): 4 Walk 150 ft (QC): 88 Walking 10ft/uneven surface-QC: 88 Gait Persons Needed: 1 Gait Assistive Device: FWW Wheelchair Training Does the Pt Use a Wheelchair?: Yes Distance: 50'x2 Wheel 50 ft with 2 turns (QC): 3 Wheel 150 ft (QC): 3 Type of Wheelchair: Manual Stair Training 1 Step (curb) (QC): 88 4 Steps (QC): 88 12 Steps (QC): 88 Balance Picking up an Object (QC): 88 ADL-Treatment Eating (QC): 5 Oral Hygiene (QC): 6 Bathing Location: L Arm, R Arm, L Upper Leg, R Upper Leg, L Lower Leg (including foot), R Lower Leg (including foot), Chest, Abdomen, Buttocks, Per ineal Area Shower/Bathe Self (QC): 4 Upper Body Dressing (QC): 5 Lower Body Dressing (QC): 4 On/Off Footwear (QC): 5 Toileting Hygiene (QC): 4 Toilet Transfer (QC): 4 Assessment/Plan Assessment and Plan Assess & Plan/Chief Complaint Assessment: CVA subacute not a tPa candidate New atrial fibrillation placed on oral anticoagulation and consult cardiology 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 Confusion now resolved Expressive aphasia much improved HTN HLP Chronic pain Osteoarthritis Cognitive decline with paranoia noted as outpatient in past 1 year Plan: Oral anticoagulation Aggressive rehab Supportive care Fall risk 12/01/21: Supportive care Monitor BP 12/02/21: Monitor BP Incontinence care 12/03/21: Monitor BP 12/04/21: Improved status Monitor closely 12/05/2021: Supportive care Fall risk 12/06/21: Ultram for pain as she takes at home No other concerns 12/07/21: Monitor closely Ultram PT OT (1) Cerebrovascular accident due to cerebral artery occlusion Status: Acute (2) Hypertension Status: Chronic (3) Osteoarthritis Status: Chronic (4) Insomnia Status: Chronic (5) Atrial fibrillation Status: Acute (6) Overactive bladder Status: Chronic (7) History of bowel resection Status: Chronic LUIS FELIPE COREAS DO Dec 07, 2021 07:11
[2021-12-07 07:38] VITALS: BP 162/67
[2021-12-07 07:45] LABS: BASOPHILS % (AUTO) 0 % (0-10); EOSINOPHILS # (AUTO) 0.3 10^3/uL (0.0-0.3); EOSINOPHILS % (AUTO) 4 % (0-10); HEMATOCRIT 45 % (35-52); HEMOGLOBIN 14.4 g/dL (11.5-16.0); LYMPHOCYTES # (AUTO) 1.6 10^3/uL (1.0-4.0); LYMPHOCYTES % (AUTO) 18 % (12-44); MEAN CORPUSCULAR HEMOGLOBIN 27 pg (25-34); MEAN CORPUSCULAR HGB CONC 32 g/dL (32-36); MEAN CORPUSCULAR VOLUME 85 fL (80-99); MEAN PLATELET VOLUME 11.5 fL (9.0-12.2); MONOCYTES # (AUTO) 0.6 10^3/uL (0.0-1.0); MONOCYTES % (AUTO) 7 % (0-12); NEUTROPHILS # (AUTO) 6.1 10^3/uL (1.8-7.8); NEUTROPHILS % (AUTO) 71 % (42-75); PLATELET COUNT 350 10^3/uL (130-400); WHITE BLOOD COUNT 8.7 10^3/uL (4.3-11.0)
[2021-12-07 08:13] LABS: ALBUMIN 3.7 GM/DL (3.2-4.5); BILIRUBIN,TOTAL 0.6 MG/DL (0.1-1.0); CALCIUM 10.2 MG/DL (8.5-10.1); CREATININE SERUM 1.15 MG/DL (0.60-1.30); POTASSIUM 4.2 MMOL/L (3.6-5.0); TOTAL PROTEIN 6.8 GM/DL (6.4-8.2)
[2021-12-07] MEDS: amLODIPine 2.5MG (NORVASC) TAB PO SCH (08:29)
[2021-12-07] MEDS: DOCUSATE SODIUM 100 MG (COLACE) CAP PO SCH ×2 (08:29→21:44)
[2021-12-07] MEDS: ASPIRIN 325 MG (5 GR) TABLET PO SCH (08:29)
[2021-12-07] MEDS: APIXABAN 2.5 MG (ELIQUIS) TABLET PO SCH ×2 (08:29→21:33)
--- NOTE | 2021-12-07 08:48 | Occupational Ther Daily Note ---
OT Current Status-Daily Note Subjective Pt alert, sitting in recliner. Pt states that Dr. Lopez wants her to ask the staff today how she is progressing then the doctor will talk to staff to find out. Pt agrees to therapy. No c/o pain. Mental Status/Objective Patient Orientation: Person, Confused (difficulty with sequencing, problem solving during ADLs.), Place, Time ADL-Treatment Pt declines shower and changing clothing. Pt sits at sink to complete oral care independently. Pt placed sweater on backwards initially then as session continued, pt wanted to button sweater so that it would fall down. When asked what she could do to prevent this, pt continued to state 'button it'. FATIMA reminded pt that sweater was put on backward and pt stated then just button it up in the back. FATIMA instructed pt to position sweater correctly. Pt then requested to use toilet. Pt pulled to stand with grabbar then asked "Now what do you want me to do?" FATIMA reminded pt she needed to use the toilet, Pt stated then what do you want me to do next. FATIMA then directed pt steps to complete toileting. Pt able to cleanse self sitting on toilet, CGA for transfers and clothing manipulation. Therapy Code Descriptions/Definitions Functional [place] Measure: 0=Not Assessed/NA 4=Minimal Assistance 1=Total Assistance 5=Supervision or Setup 2=Maximal Assistance 6=Modified [place] 3=Moderate Assistance 7=Complete IndependenceSCALE: Activities may be completed with or without assistive devices. 2-Vfjzxzsauw-rrnvvoi completes the activity by him/herself with no assistance from a helper. 5-Set-up or Clean-up Assistance-helper sets up or cleans up; patient completes activity. [place] assists only prior to or following the activity. 4-Supervision or Touching Assistance-helper provides verbal cues and/or touching/steadying and/or contact guard assistance as patient completes activity. Assistance may be provided throughout the activity or intermittently. 3-Partial/Moderate Assistance-helper does LESS THAN HALF the effort. [place] lifts, holds or supports trunk or limbs, but provides less than half the effort. 2-Substantial/Maximal Assistance-helper does MORE THAN HALF the effort. [place] lifts or holds trunk or limbs and provides more than half the effort. 9-Vtnnwqbtw-ofxpef does ALL the effort. Patient does none of the effort to complete the activity. Or, the assistance of 2 or more helpers is required for the patient to complete the activity. If activity was not attempted, code reason: 7-Patient Refused. 9-Not Applicable-not attempted and the patient did not perform the activity before the current illness, exacerbation or injury. 10-Not Attempted due to Environmental Limitations-(lack of equipment, weather restraints, etc.). 88-Not Attempted due to Medical Conditions or Safety Concerns. Eating (QC): 5 Oral Hygiene (QC): 6 Shower/Bathe Self (QC): 7 Upper Body Dressing (QC): 7 Lower Body Dressing (QC): 4 (CGA after setup.) On/Off Footwear: 5 Toileting Hygiene (QC): 4 Toilet Transfer (QC): 4 Other Treatment Pt attempted to propel w/c by self, continually veered L and ran into objects. Pt stood at parallel bars to complete ROM arc with L hand while stabilizing with R hand and was able to grasp rings and bring to other side 2x's. Then pt completed fine motor task for strength and dexterity by finding beads in medium resistance theraputty. After session, pt lying in bed with call light/phone in reach. All needs met in room. OT Short Term Goals Short Term Goals Time Frame: Dec 14, 2021 Eatin Oral hygiene: 4 Toileting hygiene: 2 Shower/bathe self: 2 Upper body dressin Lower body dressin Putting on/taking off footwear: 2 OT De Icer Finisher Goals De Icer Finisher Goals Time Frame: Dec 28, 2021 Eating (QC): 5 Oral Hygiene (QC): 6 Toileting Hygiene (QC): 4 Shower/Bathe Self (QC): 4 Upper Body Dressing (QC): 4 Lower Body Dressing (QC): 4 On/Off Footwear (QC): 4 1=Demonstrate adherence to instructed precautions during ADL tasks. 2=Patient will verbalize/demonstrate understanding of assistive devices/modifications for ADL. 3=Patient will improve strength/tolerance for activity to enable patient to perform ADL's. OT Education/Plan Problem List/Assessment Assessment: Decreased Activ Tolerance, Decreased Safety Aware, Decreased UE Strength, Impaired Cognition, Impaired Self-Care Skills, Restricted Funct UE ROM, Visual-Perceptual Deficit Discharge Recommendations Plan/Recommendations: Continue POC Treatment Plan/Plan of Care Patient would benefit from OT for education, treatment and training to promote independence in ADL's, mobility, safety and/or upper extremity function for ADL's. Plan of Care: ADL Retraining, Caregiver Training, Cognitive Retraining, Fu nctional Mobility, Group Exercise/Act as Ind, UE Funct Exercise/Act, UE Neuromus Re-Ed/Coord, Visual/Perceptual Retrain, W/C Management Training Treatment Duration: Dec 28, 2021 Frequency: Modified Program (IRF) Estimated Hrs Per Day: 1 hour per day (75-90 min/day) Agreement: Yes Rehab Potential: Fair Time/GCodes Start Time: 07:15 Stop Time: 08:30 Total Time Billed (hr/min): 75 Billed Treatment Time 1 visit-ADL 3 (45 min) EX 2 (30 min) ROHIT BENTLEY Dec 07, 2021 08:48
--- NOTE | 2021-12-07 08:59 | Speech Therapy Daily Note ---
Speech Daily Progress Note Subjective Date Seen by Provider: Dec 07, 2021 Time Seen by Provider: 10:15 The patient was seated upright in her recliner, awake and alert upon entrance to her room by the clinician. The patient greeted the clinician and was agreeable to participation in the cognitive linguistic treatment session. The patient's daughter was present at bedside. Objective - Orientation: The patient was independently oriented to month, place, day of the week, date and year. - Delayed Recall (Internal Memory Strategies): The patient was provided five words and the clinician introduced internal memory strategies to aid in recall (visualization, repetition, association). The patient was able to recall one of five words immediately. Following a five minute delay, the patient was able to recall three of five items. The patient's accuracy did not improve with category cues. Assessment Assessment Current Status: Fair Progress Treatment Plan Continue Plan of Care Speech Short Term Goals Short Term Goals Short Term Goals 1. The patient will demonstrated 80% accuracy on memory exercises with mild clinician verbal and visual cueing. Time Frame-STG: One Week. Speech Media Relations Coordinator Goals Media Relations Coordinator Goals 1. The patient will improve cognitive linguistic skills for a safe discharge to the least restricted environment. Time Frame: Two Weeks. Speech-Plan Treatment Plan Speech Therapy Treatment Plan: Continue Plan of Care Treatment Duration: Dec 14, 2021 Frequency: Modified Program (IRF) (Three to five times per week.) Estimated Hrs Per Day: .5 hour per day Rehab Potential: Fair Pt/Family Agrees to Plan: Yes Safety Risks/Education Teaching Recipient: Patient, Family Teaching Methods: Demonstration, Discussion Response to Teaching: Reinforcement Needed Education Topics Provided: Internal Memory Strategies Time Speech Therapy Time In: 10:15 Speech Therapy Time Out: 10:45 Total Billed Time: 30 Billed Treatment Time SRINIVASAN Woods ELIZABELORENA DOBBINS Dec 07, 2021 08:59
[2021-12-07] MEDS: SENNOSIDES 8.6 MG (SENOKOT) TAB PO SCH ×2 (09:00→21:44)
--- NOTE | 2021-12-07 11:55 | Physical Therapy Daily Note ---
PT Daily Note-Current Subjective Patient in bed pre tx, agrees to PT with encouragement, has no complaints of pain. Appearance Patient in bed post tx with nurse call, phone, tray, bed alarm on. Mental Status Patient Orientation: Person, Confused Transfers SCALE: Activities may be completed with or without assistive devices. 1-Imbvmmvssw-batscie completes the activity by him/herself with no assistance from a helper. 5-Set-up or Clean-up Assistance-helper sets up or cleans up; patient completes activity. [place] assists only prior to or following the activity. 4-Supervision or Touching Assistance-helper provides verbal cues and/or krish arun/steadying and/or contact guard assistance as patient completes activity. Assistance may be provided throughout the activity or intermittently. 3-Partial/Moderate Assistance-helper does LESS THAN HALF the effort. [place] lifts, holds or supports trunk or limbs, but provides less than half the effort. 2-Substantial/Maximal Assistance-helper does MORE THAN HALF the effort. [place] lifts or holds trunk or limbs and provides more than half the effort. 4-Eyimenzvf-klsqkf does ALL the effort. Patient does none of the effort to complete the activity. Or, the assistance of 2 or more helpers is required for the patient to complete the activity. If activity was not attempted, code reason: 7-Patient Refused. 9-Not Applicable-not attempted and the patient did not perform the activity before the current illness, exacerbation or injury. 10-Not Attempted due to Environmental Limitations-(lack of equipment, weather restraints, etc.). 88-Not Attempted due to Medical Conditions or Safety Concerns. Roll Left & Right (QC): 4 Sit to Lying (QC): 3 Lying to Sitting/Side of Bed(Q: 4 Sit to Stand (QC): 3 Chair/Zdw-fr-Csuoq Xfer(QC): 3 Toilet Transfer (QC): 3 during tx patient had to use the restroom, min assist toilet transfer, PT tech used to push down/pull up pants during transfers, patient was able to wipe herself. Patient performs a stand pivot transfer with CGA to the right side and min assist to the left side, she does need cues for safety and positioning, will try to turn the wrong way often or not turn completely before sitting down Weight Bearing Full Weight Bearing Full Weight Bearing Gait Training Distance: 20'x3 Walk 10 feet (QC): 3 Gait Persons Needed: 1 Gait Assistive Device: FWW WC follow, uncoordinated steps, bilateral internally rotated hips, severe trend [place] gait, left neglect, needs assist from therapist for balance and to keep her from pushing the walker too far in front of her. Wheelchair Training Does the Pt Use a Wheelchair?: Yes Wheel 50 ft with 2 turns (QC): 3 Type of Wheelchair: Manual 120'x2, Exercises Standing: Heel/toe raises, Mini squats, Sit to Stand (2 sets of 5) Standing Reps: 15 NuStep Minutes: 7 NuStep Workload: 4 Treatments toileting, WC mobility, ambulation, functional strengthening Assessment Current Status: Poor Progress patient has improved ambulation but has left neglect and poor motivation PT Short Term Goals Short Term Goals Time Frame: Dec 07, 2021 Roll Left & Right: 3 (modA) Sit to lyin (moA) Lying to sitting on side of be: 3 (modA) Sit to stand: 3 (modA) Chair/qir-av-lvqmb transfer: 3 (modA) PT Circular Clerk Goals Circular Clerk Goals PT Long-Term Goals Time Frame: Dec 21, 2021 Roll Left & Right (QC): 3 (Jonathan) Sit to Lying (QC): 3 (Jonathan) Lying-Sitting on Side/Bed(QC): 3 (Jonathan) Sit to Stand (QC): 3 (Jonathan) Chair/Qce-bo-Dmwjb Xfer(QC): 3 (Jonathan) Toilet Transfer (QC): 3 (Jonathan) Car Transfer (QC): 3 (Jonathan) Does the Patient Walk: No and Walking Goal IS indicated Walk 10 feet (QC): 3 (modA) Walk 50ft with 2 Turns (QC): 88 Walk 150 ft (QC): 88 Walking 10ft on Uneven Surface: 88 1 Step (curb) (QC): 88 4 Steps (QC): 88 12 Steps (QC): 88 Picking up an Object (QC): 88 Wheel 50 feet with 2 turns (QC: 4 (SBA) Wheel 150 feet: 4 (SBA) PT Plan Problem List Problem List: Activity Tolerance, Functional Strength, Safety, Balance, Gait, Transfer, Bed Mobility, ROM Treatment/Plan Treatment Plan: Continue Plan of Care Treatment Plan: Bed Mobility, Education, Functional Activity Anitra, Functional Strength, Group Therapy, Gait, Safety, Therapeutic Exercise, Transfers Treatment Duration: Dec 21, 2021 Frequency: At least 5 of 7 days/Wk (IRF) Estimated Hrs Per Day: 1.5 hours per day Patient and/or Family Agrees t: Yes Safety Risks/Education Patient Education: Gait Training, Transfer Techniques, Correct Positioning, W/C Management, Safety Issues Teaching Recipient: Patient Teaching Methods: Demonstration, Discussion Response to Teaching: Reinforcement Needed Time/GCodes Time In: 1100 Time Out: 1200 Total Billed Treatment Time: 60 Total Billed Treatment 1 visit EX 30' FA 30' EDDIE MOSS PT Dec 07, 2021 11:55
--- NOTE | 2021-12-07 14:08 | Physical Therapy Progress Note ---
Therapy Progress Note Patient refuses physical therapy this afternoon. Explained the benefits of therapy and she continues to refuse. Patient states she is having chills and feels ill and is not going to participate at this time. Told patient we will try back in the morning and she says "we'll see". EDDIE MOSS PT Dec 07, 2021 14:08
[2021-12-07 20:34] VITALS: BP 121/93
[2021-12-07] MEDS: ZOLPIDEM 5 MG (AMBIEN) TAB PO SCH (21:32)
--- NOTE | 2021-12-08 05:46 | PM&R Progress Note ---
Subjective HPI/CC On Admission Date Seen by Provider: Dec 08, 2021 Time Seen by Provider: 11:00 Subjective/Events-last exam 12/08/21: Pt is doing pretty well Had a headache, received Ultram Loose stools No other concerns 12/07/21: Patient doing well Daughter and son at the bedside and we talked about the need to stay as long as possible to gain strength Memory loss discussed and will allow CVA recovery until we entertain that No pain 12/06/21: Patient doing well No pain is reported Left side is moving really well Asked again why she cannot go home 12/05/2021: Patient had a really good mood Wants to go home and asking again over and over the same question so her cogniti on has variability No falls Moving left side really well 12/04/2021: Pt doing well Lucid thought process now Ultram for shoulder pain Bowels moved a couple of days ago will give her stool softeners 12/03/21: Pt is doing pretty well Incontinence noted Dementia issues are apparent Daughter wants to know if she can be started on dementia medication and an appetite stimulant, but she is just really not stable enough neurologically to start meds. Appetite stimulant is not indicated at this time. 12/02/21: Pt is doing really well Discontinued spencer catheter, she is incontinent Post void residual is minimal Will increase PO fluids Discontinue telemetry Allevyn will be placed on her bottom due to high risk for stage 1 Incontinent of stool last night so will monitor that closely 12/01/21: Pt had her spencer taken out Incontinent of urine Labs look okay Discontinue telemetry because it is afib Participating with all therapies Review of Systems Neurological: Weakness Objective Exam Vital Signs Vital Signs Date Time Temp Pulse Resp B/P (MAP) Pulse Ox O2 Delivery O2 Flow Rate FiO2 12/08/21 21:00 Room Air 12/08/21 20:11 36.8 80 18 127/100 (109) 94 12/03/21 09:28 21 12/03/21 08:20 0.00 Capillary Refill : General Appearance: No Apparent Distress, WD/WN, Chronically ill, Obese HEENT: PERRL/EOMI, Normal ENT Inspection, Pharynx Normal Neck: Full Range of Motion, Normal Inspection, Non Tender, Supple, Carotid Bruit Respiratory: Chest Non Tender, Lungs Clear, Normal Breath Sounds, No Accessory Muscle Use, No Respiratory Distress Cardiovascular: Regular Rate, Rhythm, No Edema, No Gallop, No JVD, No Murmur, Normal Peripheral Pulses Gastrointestinal: Normal Bowel Sounds, No Organomegaly, No Pulsatile Mass, Non Tender, Soft Back: Normal Inspection, No CVA Tenderness, No Vertebral Tenderness Extremity: Normal Capillary Refill, Normal Inspection, Normal Range of Motion, Non Tender, No Calf Tenderness, No Pedal Edema Neurologic/Psychiatric: Alert, Oriented x3, Normal Mood/Affect, benefits clerk II-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 FIM Transfers Therapy Code Descriptions/Definitions Functional [place] Measure: 0=Not Assessed/NA 4=Minimal Assistance 1=Total Assistance 5=Supervision or Setup 2=Maximal Assistance 6=Modified [place] 3=Moderate Assistance 7=Complete IndependenceSCALE: Activities may be completed with or without assistive devices. 9-Uuoyvjhzxf-rwmnolg completes the activity by him/herself with no assistance from a helper. 5-Set-up or Clean-up Assistance-helper sets up or cleans up; patient completes activity. [place] assists only prior to or following the activity. 4-Supervision or Touching Assistance-helper provides verbal cues and/or touching/steadying and/or contact guard assistance as patient completes activity. Assistance may be provided throughout the activity or intermittently. 3-Partial/Moderate Assistance-helper does LESS THAN HALF the effort. [place] lifts, holds or supports trunk or limbs, but provides less than half the effort. 2-Substantial/Maximal Assistance-helper does MORE THAN HALF the effort. [place] lifts or holds trunk or limbs and provides more than half the effort. 5-Wqbnhjbio-qjwywq does ALL the effort. Patient does none of the effort to complete the activity. Or, the assistance of 2 or more helpers is required for the patient to complete the activity. If activity was not attempted, code reason: 7-Patient Refused. 9-Not Applicable-not attempted and the patient did not perform the activity before the current illness, exacerbation or injury. 10-Not Attempted due to Environmental Limitations-(lack of equipment, weather restraints, etc.). 88-Not Attempted due to Medical Conditions or Safety Concerns. Roll Left to Right (QC): 4 Sit to Lying (QC): 3 Sit to Stand (QC): 3 Chair/Fff-ty-Gqtrz Xfer(QC): 3 Car Transfer (QC): 2 Gait Training Does the Patient Walk?: No and Walking Goal IS indicated Distance: 20'x3 Walk 10 feet (QC): 3 Walk 50 ft with 2 Turns(QC): 4 Walk 150 ft (QC): 88 Walking 10ft/uneven surface-QC: 88 Gait Persons Needed: 1 Gait Assistive Device: FWW Wheelchair Training Does the Pt Use a Wheelchair?: Yes Distance: 50'x2 Wheel 50 ft with 2 turns (QC): 3 Wheel 150 ft (QC): 3 Type of Wheelchair: Manual Stair Training 1 Step (curb) (QC): 88 4 Steps (QC): 88 12 Steps (QC): 88 Balance Picking up an Object (QC): 88 ADL-Treatment Eating (QC): 5 Oral Hygiene (QC): 6 Bathing Location: L Arm, R Arm, L Upper Leg, R Upper Leg, L Lower Leg (including foot), R Lower Leg (including foot), Chest, Abdomen, Buttocks, Perineal Area Shower/Bathe Self (QC): 7 Upper Body Dressing (QC): 7 Lower Body Dressing (QC): 4 (CGA after setup.) On/Off Footwear (QC): 5 Toileting Hygiene (QC): 4 Toilet Transfer (QC): 4 Assessment/Plan Assessment and Plan Assess & Plan/Chief Complaint Assessment: CVA subacute not a tPa candidate New atrial fibrillation placed on oral anticoagulation and consult cardiology 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 Confusion now resolved Expressive aphasia much improved HTN HLP Chronic pain Osteoarthritis Cognitive decline with paranoia noted as outpatient in past 1 year Plan: Oral anticoagulation Aggressive rehab Supportive care Fall risk 12/01/21: Supportive care Monitor BP 12/02/21: Monitor BP Incontinence care 12/03/21: Monitor BP 12/04/21: Improved status Monitor closely 12/05/2021: Supportive care Fall risk 12/06/21: Ultram for pain as she takes at home No other concerns 12/07/21: Monitor closely Ultram PT OT 12/08/21: PT/OT Dramatic improvement (1) Cerebrovascular accident due to cerebral artery occlusion Status: Acute (2) Hypertension Status: Chronic (3) Osteoarthritis Status: Chronic (4) Insomnia Status: Chronic (5) Atrial fibrillation Status: Acute (6) Overactive bladder Status: Chronic (7) History of bowel resection Status: Chronic LUIS FELIPE COREAS DO Dec 08, 2021 05:46
[2021-12-08 07:33] VITALS: BP 141/68
[2021-12-08] MEDS: APIXABAN 2.5 MG (ELIQUIS) TABLET PO SCH ×2 (08:03→20:53)
[2021-12-08] MEDS: ASPIRIN 325 MG (5 GR) TABLET PO SCH (08:03)
[2021-12-08] MEDS: amLODIPine 2.5MG (NORVASC) TAB PO SCH (08:04)
[2021-12-08] MEDS: DOCUSATE SODIUM 100 MG (COLACE) CAP PO SCH ×2 (08:05→20:53)
[2021-12-08] MEDS: SENNOSIDES 8.6 MG (SENOKOT) TAB PO SCH ×2 (08:05→21:15)
--- NOTE | 2021-12-08 09:35 | Speech Therapy Daily Note ---
Speech Daily Progress Note Subjective Date Seen by Provider: Dec 08, 2021 Time Seen by Provider: 08:30 The patient was lying in bed, awake and alert upon entrance to her room by the clinician. The patient greeted the clinician appropriately and was agreeable to participation in the cognitive linguistic treatment program. The patient required consistent verbal encouragement for participation, frequently turning her head away from the clinician or closing her eyes throughout tasks. Objective - Orientation: The patient remains independently oriented to month, date, day of week, and year. - Safety in the House: The patient was provided photographs containing situations which were unsafe in a home environment. The patient was asked to identify the safety concern and state an appropriate solution. The patient displayed fair accuracy with the task, requiring mild to moderate clinician verbal cueing. The patient displays dismissive behavior at time throughout cognitive therapy. The clinician suspects the patient is intermittently aware of her deficits, however, does attempt to keep her deficits disclosed. Assessment Assessment Current Status: Fair Progress Treatment Plan Continue Plan of Care Speech Short Term Goals Short Term Goals Short Term Goals 1. The patient will demonstrated 80% accuracy on memory exercises with mild clin ician verbal and visual cueing. Time Frame-STG: One Week. Speech Plate Glass Grinder Goals Fpc Goals 1. The patient will improve cognitive linguistic skills for a safe discharge to the least restricted environment. Time Frame: Two Weeks. Speech-Plan Treatment Plan Speech Therapy Treatment Plan: Continue Plan of Care Treatment Duration: Dec 14, 2021 Frequency: Modified Program (IRF) (Three to five times per week.) Estimated Hrs Per Day: .5 hour per day Rehab Potential: Fair Safety Risks/Education Teaching Recipient: Patient Teaching Methods: Discussion Response to Teaching: Reinforcement Needed Education Topics Provided: Home Safety Awareness Time Speech Therapy Time In: 08:30 Speech Therapy Time Out: 09:00 Total Billed Time: 30 Billed Treatment Time ChuckTABSRINI CED T[place]O Dec 08, 2021 09:35
--- NOTE | 2021-12-08 10:23 | Occupational Ther Daily Note ---
OT Current Status-Daily Note Subjective Pt alert, lying in bed. Took over care from FINANCIAL MANAGER. Pt agrees to therapy. When FATIMA questions pt about home environment, pt requires specific questions to give answers to or will say "I am not sure" or gives vague answer. Mental Status/Objective Patient Orientation: Person, Place, Time, Situation ADL-Treatment Pt declines shower. Pt then requested to use toilet. Pt pulled to stand using grabbars with CGA. CGA to SPT from w/c to toilet and manipulate clothing. Pt cleanses self while sitting on toilet. Pt sits at sink to completes grooming and oral care independently. Pt able to complete lower body dressing using grabbar to stabilize in standing with CGA to hike over hips, threads clothing over feet by self. After set up, independent with upper body dressing. After set up, pt able to doff B socks, dons R sock using figure 4 tech then bends over with feet flat on ground to don L sock. Therapy Code Descriptions/Definitions Functional [place] Measure: 0=Not Assessed/NA 4=Minimal Assistance 1=Total Assistance 5=Supervision or Setup 2=Maximal Assistance 6=Modified [place] 3=Moderate Assistance 7=Complete IndependenceSCALE: Activities may be completed with or without assistive devices. 1-Xcfhydqnuu-phundez completes the activity by him/herself with no assistance from a helper. 5-Set-up or Clean-up Assistance-helper sets up or cleans up; patient completes activity. [place] assists only prior to or following the activity. 4-Supervision or Touching Assistance-helper provides verbal cues and/or touching/steadying and/or contact guard assistance as patient completes activity. Assistance may be provided throughout the activity or intermittently. 3-Partial/Moderate Assistance-helper does LESS THAN HALF the effort. [place] lifts, holds or supports trunk or limbs, but provides less than half the effort. 2-Substantial/Maximal Assistance-helper does MORE THAN HALF the effort. [place] lifts or holds trunk or limbs and provides more than half the effort. 5-Niojgriih-itmtry does ALL the effort. Patient does none of the effort to compl ete the activity. Or, the assistance of 2 or more helpers is required for the patient to complete the activity. If activity was not attempted, code reason: 7-Patient Refused. 9-Not Applicable-not attempted and the patient did not perform the activity before the current illness, exacerbation or injury. 10-Not Attempted due to Environmental Limitations-(lack of equipment, weather restraints, etc.). 88-Not Attempted due to Medical Conditions or Safety Concerns. Eating (QC): 5 Oral Hygiene (QC): 6 Shower/Bathe Self (QC): 7 Upper Body Dressing (QC): 5 Lower Body Dressing (QC): 4 On/Off Footwear: 5 Toileting Hygiene (QC): 4 Toilet Transfer (QC): 4 Other Treatment Pt completes arm bike to increase L UE coordination, strength and activity tolerance, 10 min with minimal resistance. L UE would drop off of handle when pt focused on other tasks, ie. trivia questions. Pt then working on problem solving and arranging letters to decipher words, required mod verbal cues. Co- treat with PT ([id number]) for skilled instruction requiring two therapist to decrease fall risk, increase functional mobility and activity tolerance. PT focusing on ambulation using FWW while OT focusing on L UE placement and safety. After therapy, pt left in care of PT. All needs met. OT Short Term Goals Short Term Goals Time Frame: Dec 14, 2021 Eatin Oral hygiene: 4 Toileting hygiene: 2 Shower/bathe self: 2 Upper body dressin Lower body dressin Putting on/taking off footwear: 2 OT Production Lead Goals Skilled Nursing Goals Time Frame: Dec 28, 2021 Eating (QC): 5 Oral Hygiene (QC): 6 Toileting Hygiene (QC): 4 Shower/Bathe Self (QC): 4 Upper Body Dressing (QC): 4 Lower Body Dressing (QC): 4 On/Off Footwear (QC): 4 1=Demonstrate adherence to instructed precautions during ADL tasks. 2=Patient will verbalize/demonstrate understanding of assistive devices/modifications for ADL. 3=Patient will improve strength/tolerance for activity to enable patient to perform ADL's. OT Education/Plan Problem List/Assessment Assessment: Decreased Activ Tolerance, Decreased Safety Aware, Decreased UE Strength, Impaired Self-Care Skills, Restricted Funct UE ROM (L neglect) Discharge Recommendations Plan/Recommendations: Continue POC Treatment Plan/Plan of Care Patient would benefit from OT for education, treatment and training to promote independence in ADL's, mobility, safety and/or upper extremity function for ADL's. Plan of Care: ADL Retraining, Caregiver Training, Cognitive Retraining, Functional Mobility, Group Exercise/Act as Ind, UE Funct Exercise/Act, UE Neuromus Re-Ed/Coord, Visual/Perceptual Retrain, W/C Management Training Treatment Duration: Dec 28, 2021 Frequency: Modified Program (IRF) Estimated Hrs Per Day: 1 hour per day (75-90 min/day) Agreement: Yes Rehab Potential: Fair Time/GCodes Start Time: 09:00 Stop Time: 10:15 Total Time Billed (hr/min): 75 Billed Treatment Time 1 visit-ADL 2 (30 min) EX 2 (30 min) FA 1 (15 min) co-treat with PT 1000- 1015, individual [id number] ROHIT BENTLEY Dec 08, 2021 10:23
--- NOTE | 2021-12-08 10:53 | Physical Therapy Daily Note ---
PT Daily Note-Current Subjective Patient in therapy gym pre tx, agrees to PT, has no complaints of pain. Will be co-treating with OT for part of tx due to poor patient mobility, severe debility, coordinate UE and LE during activity, safety and reduce risk of falls. Appearance Patient in bed post tx with nurse call, phone, tray, all needs met, bed alarm on. Mental Status Patient Orientation: Person, Confused Transfers SCALE: Activities may be completed with or without assistive devices. 7-Omcfhzsbgs-wqtibpa completes the activity by him/herself with no assistance from a helper. 5-Set-up or Clean-up Assistance-helper sets up or cleans up; patient completes activity. [place] assists only prior to or following the activity. 4-Supervision or Touching Assistance-helper provides verbal cues and/or touching/steadying and/or contact guard assistance as patient completes activity. Assistance may be provided throughout the activity or intermittently. 3-Partial/Moderate Assistance-helper does LESS THAN HALF the effort. [place] lifts, holds or supports trunk or limbs, but provides less than half the effort. 2-Substantial/Maximal Assistance-helper does MORE THAN HALF the effort. [place] lifts or holds trunk or limbs and provides more than half the effort. 2-Cxioifamu-duzrau does ALL the effort. Patient does none of the effort to complete the activity. Or, the assistance of 2 or more helpers is required for the patient to complete the activity. If activity was not attempted, code reason: 7-Patient Refused. 9-Not Applicable-not attempted and the patient did not perform the activity before the current illness, exacerbation or injury. 10-Not Attempted due to Environmental Limitations-(lack of equipment, weather restraints, etc.). 88-Not Attempted due to Medical Conditions or Safety Concerns. Roll Left & Right (QC): 3 Sit to Lying (QC): 3 Lying to Sitting/Side of Bed(Q: 3 Sit to Stand (QC): 3 Chair/Jeo-xb-Anzft Xfer(QC): 3 Weight Bearing Full Weight Bearing Full Weight Bearing Gait Training Distance: 80', 20'x2 Walk 10 feet (QC): 3 Walk 50 ft with 2 Turns(QC): 3 Gait Assistive Device: FWW WC follow, patient stated after ambulating 80' that her hip hurts quite a bit, she has a severe trendelenburg gait, shorter distances may be better for her at this time, patient needs assist with balance and help guiding the walker Wheelchair Training Does the Pt Use a Wheelchair?: Yes Wheel 50 ft with 2 turns (QC): 2 Type of Wheelchair: Manual 100' Exercises Seated Therapy Exercises: Ankle pumps, Long arc quads, Hip abd/add (with ball and RTB) Seated Reps: 20 NuStep Minutes: 15 NuStep Workload: 4 (BLE and RUE used) Treatments bed mobility and transfers, ambulation, WC mobility, functional strengthening Assessment Current Status: Poor Progress Patient has poor motivation, seems uninterested in therapy. Has increased left hip pain with more distance of ambulation. PT Short Term Goals Short Term Goals Time Frame: Dec 07, 2021 Roll Left & Right: 3 (modA) Sit to lyin (moA) Lying to sitting on side of be: 3 (modA) Sit to stand: 3 (modA) Chair/zmh-qu-riuvw transfer: 3 (modA) PT Alf Goals Anthropology Lecturer Goals PT Alf Goals Time Frame: Dec 21, 2021 Roll Left & Right (QC): 3 (Jonathan) Sit to Lying (QC): 3 (Jonathan) Lying-Sitting on Side/Bed(QC): 3 (Jonathan) Sit to Stand (QC): 3 (Jonathan) Chair/Jtz-tk-Qbttb Xfer(QC): 3 (Jonathan) Toilet Transfer (QC): 3 (Jonathan) Car Transfer (QC): 3 (Jonathan) Does the Patient Walk: No and Walking Goal IS indicated Walk 10 feet (QC): 3 (modA) Walk 50ft with 2 Turns (QC): 88 Walk 150 ft (QC): 88 Walking 10ft on Uneven Surface: 88 1 Step (curb) (QC): 88 4 Steps (QC): 88 12 Steps (QC): 88 Picking up an Object (QC): 88 Wheel 50 feet with 2 turns (QC: 4 (SBA) Wheel 150 feet: 4 (SBA) PT Plan Problem List Problem List: Activity Tolerance, Functional Strength, Safety, Balance, Gait, Transfer, Bed Mobility, ROM Treatment/Plan Treatment Plan: Continue Plan of Care Treatment Plan: Bed Mobility, Education, Functional Activity Anitra, Functional Strength, Group Therapy, Gait, Safety, Therapeutic Exercise, Transfers Treatment Duration: Dec 21, 2021 Frequency: At least 5 of 7 days/Wk (IRF) Estimated Hrs Per Day: 1.5 hours per day Patient and/or Family Agrees t: Yes Safety Risks/Education Patient Education: Gait Training, Transfer Techniques, Correct Positioning, W/C Management, Safety Issues Teaching Recipient: Patient Teaching Methods: Demonstration, Discussion Response to Teaching: Reinforcement Needed Time/GCodes Time In: 1000 Time Out: 1100 Total Billed Treatment Time: 60 Total Billed Treatment 1 visit EX 30' FA 30' co-treated from [id number], PT performed UE positioning and safety during ambulation, PT performed ambulation. EDDIE MOSS PT Dec 08, 2021 10:53
--- NOTE | 2021-12-08 13:29 | Physical Therapy Daily Note ---
PT Daily Note-Current Subjective Patient lying supine in bed upon PT arrival, agreeable to treatment. Reports 0/10 pain. Mental Status Patient Orientation: Person Transfers SCALE: Activities may be completed with or without assistive devices. 7-Gotvcxvkus-nbwukgw completes the activity by him/herself with no assistance from a helper. 5-Set-up or Clean-up Assistance-helper sets up or cleans up; patient completes activity. [place] assists only prior to or following the activity. 4-Supervision or Touching Assistance-helper provides verbal cues and/or touching/steadying and/or contact guard assistance as patient completes activity. Assistance may be provided throughout the activity or intermittently. 3-Partial/Moderate Assistance-helper does LESS THAN HALF the effort. [place] lifts, holds or supports trunk or limbs, but provides less than half the effort. 2-Substantial/Maximal Assistance-helper does MORE THAN HALF the effort. [place] lifts or holds trunk or limbs and provides more than half the effort. 3-Cmtsswybf-qekhzp does ALL the effort. Patient does none of the effort to complete the activity. Or, the assistance of 2 or more helpers is required for the patient to complete the activity. If activity was not attempted, code reason: 7-Patient Refused. 9-Not Applicable-not attempted and the patient did not perform the activity before the current illness, exacerbation or injury. 10-Not Attempted due to Environmental Limitations-(lack of equipment, weather restraints, etc.). 88-Not Attempted due to Medical Conditions or Safety Concerns. Roll Left & Right (QC): 4 Sit to Lying (QC): 4 Lying to Sitting/Side of Bed(Q: 4 Sit to Stand (QC): 4 Chair/Gkk-uh-Yrlmo Xfer(QC): 4 Weight Bearing Full Weight Bearing Full Weight Bearing Gait Training Does the Patient Walk?: Yes Distance: 200 Walk 10 feet (QC): 4 Walk 50 ft with 2 Turns(QC): 3 Walk 150 ft (QC): 3 Gait Persons Needed: 1 Gait Assistive Device: FWW Assessment Current Status: Fair Progress Patient tolerate PT treatment fair. Patient ambulates 200 feet with FWW, with CGA and verbal cues for safety, progression, distance to the FWW and conservation of energy. Patient ambulates with significant left sided [place] gait, moderate functional scoliosis during stance and rounded shoulders/forward trunk posture all of which contribute to the FWW staying too far from the patient and setting up a potential fall risk. Patient educated on this and verbal cues throughout the treatment session however patient unable to completely correct. Patient in bed post treatment with all needs met, nursing notified, call light in hand. PT Short Term Goals Short Term Goals Time Frame: Dec 07, 2021 Roll Left & Right: 3 (modA) Sit to lyin (moA) Lying to sitting on side of be: 3 (modA) Sit to stand: 3 (modA) Chair/zhu-wr-ppnkp transfer: 3 (modA) PT Enologist Goals [facility] Goals PT Enologist Goals Time Frame: Dec 21, 2021 Roll Left & Right (QC): 3 (Jonathan) Sit to Lying (QC): 3 (Jonathan) Lying-Sitting on Side/Bed(QC): 3 (Jonathan) Sit to Stand (QC): 3 (Jonathan) Chair/Fqz-il-Zjyrz Xfer(QC): 3 (Jonathan) Toilet Transfer (QC): 3 (Jonathan) Car Transfer (QC): 3 (Jonathan) Does the Patient Walk: No and Walking Goal IS indicated Walk 10 feet (QC): 3 (modA) Walk 50ft with 2 Turns (QC): 88 Walk 150 ft (QC): 88 Walking 10ft on Uneven Surface: 88 1 Step (curb) (QC): 88 4 Steps (QC): 88 12 Steps (QC): 88 Picking up an Object (QC): 88 Wheel 50 feet with 2 turns (QC: 4 (SBA) Wheel 150 feet: 4 (SBA) PT Plan Treatment/Plan Treatment Plan: Continue Plan of Care Treatment Plan: Bed Mobility, Education, Functional Activity Anitra, Functional Strength, Group Therapy, Gait, Safety, Therapeutic Exercise, Transfers Treatment Duration: Dec 21, 2021 Frequency: At least 5 of 7 days/Wk (IRF) Estimated Hrs Per Day: 1.5 hours per day Patient and/or Family Agrees t: Yes Safety Risks/Education Patient Education: Gait Training Teaching Recipient: Patient Teaching Methods: Demonstration, Discussion Response to Teaching: Reinforcement Needed Time/GCodes Time In: 1300 Time Out: 1315 Total Billed Treatment Time: 15 Total Billed Treatment Visit, TOMEKA Linda PT Dec 08, 2021 13:29
[2021-12-08 20:11] VITALS: BP 127/100
[2021-12-08] MEDS: ZOLPIDEM 5 MG (AMBIEN) TAB PO SCH (20:53)
--- NOTE | 2021-12-09 06:19 | PM&R Progress Note ---
Subjective HPI/CC On Admission Date Seen by Provider: Dec 09, 2021 Time Seen by Provider: 09:00 Subjective/Events-last exam 12/09/2021: Patient doing well No pain reported Dramatically improved No falls 12/08/21: Pt is doing pretty well Had a headache, received Ultram Loose stools No other concerns 12/07/21: Patient doing well Daughter and son at the bedside and we talked about the need to stay as long as possible to gain strength Memory loss discussed and will allow CVA recovery until we entertain that No pain 12/06/21: Patient doing well No pain is reported Left side is moving really well Asked again why she cannot go home 12/05/2021: Patient had a really good mood Wants to go home and asking again over and over the same question so her cognition has variability No falls Moving left side really well 12/04/2021: Pt doing well Lucid thought process now Ultram for shoulder pain Bowels moved a couple of days ago will give her stool softeners 12/03/21: Pt is doing pretty well Incontinence noted Dementia issues are apparent Daughter wants to know if she can be started on dementia medication and an appetite stimulant, but she is just really not stable enough neurologically to start meds. Appetite stimulant is not indicated at this time. 12/02/21: Pt is doing really well Discontinued spencer catheter, she is incontinent Post void residual is minimal Will increase PO fluids Discontinue telemetry Allevyn will be placed on her bottom due to high risk for stage 1 Incontinent of stool last night so will monitor that closely 12/01/21: Pt had her spencer taken out Incontinent of urine Labs look okay Discontinue telemetry because it is afib Participating with all therapies Review of Systems General: Fatigue, Malaise Neurological: Weakness Objective Exam Vital Signs Vital Signs Date Time Temp Pulse Resp B/P (MAP) Pulse Ox O2 Delivery O2 Flow Rate FiO2 12/09/21 20:51 Room Air 12/09/21 19:53 36.8 83 16 132/63 (86) 94 12/03/21 09:28 21 12/03/21 08:20 0.00 Capillary Refill : General Appearance: No Apparent Distress, WD/WN, Chronically ill, Obese HEENT: PERRL/EOMI, Normal ENT Inspection, Pharynx Normal Neck: Full Range of Motion, Normal Inspection, Non Tender, Supple, Carotid Bruit Respiratory: Chest Non Tender, Lungs Clear, Normal Breath Sounds, No Accessory Muscle Use, No Respiratory Distress Cardiovascular: Regular Rate, Rhythm, No Edema, No Gallop, No JVD, No Murmur, Normal Peripheral Pulses Gastrointestinal: Normal Bowel Sounds, No Organomegaly, No Pulsatile Mass, Non Tender, Soft Back: Normal Inspection, No CVA Tenderness, No Vertebral Tenderness Extremity: Normal Capillary Refill, Normal Inspection, Normal Range of Motion, Non Tender, No Calf Tenderness, No Pedal Edema Neurologic/Psychiatric: Alert, Oriented x3, Normal Mood/Affect, foam caster II-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 FIM Transfers Therapy Code Descriptions/Definitions Functional [place] Measure: 0=Not Assessed/NA 4=Minimal Assistance 1=Total Assistance 5=Supervision or Setup 2=Maximal Assistance 6=Modified [place] 3=Moderate Assistance 7=Complete IndependenceSCALE: Activities may be completed with or without assistive devices. 8-Yiwkpkqtlv-udtblyh completes the activity by him/herself with no assistance from a helper. 5-Set-up or Clean-up Assistance-helper sets up or cleans up; patient completes activity. [place] assists only prior to or following the activity. 4-Supervision or Touching Assistance-helper provides verbal cues and/or touching/steadying and/or contact guard assistance as patient completes activity. Assistance may be provided throughout the activity or intermittently. 3-Partial/Moderate Assistance-helper does LESS THAN HALF the effort. [place] lifts, holds or supports trunk or limbs, but provides less than half the effort. 2-Substantial/Maximal Assistance-helper does MORE THAN HALF the effort. [place] lifts or holds trunk or limbs and provides more than half the effort. 5-Qcmrjaosd-vxsbps does ALL the effort. Patient does none of the effort to complete the activity. Or, the assistance of 2 or more helpers is required for the patient to complete the activity. If activity was not attempted, code reason: 7-Patient Refused. 9-Not Applicable-not attempted and the patient did not perform the activity before the current illness, exacerbation or injury. 10-Not Attempted due to Environmental Limitations-(lack of equipment, weather restraints, etc.). 88-Not Attempted due to Medical Conditions or Safety Concerns. Roll Left to Right (QC): 4 Sit to Lying (QC): 4 Sit to Stand (QC): 4 Chair/Byf-ll-Swdui Xfer(QC): 4 Car Transfer (QC): 2 Gait Training Does the Patient Walk?: Yes Distance: 200 Walk 10 feet (QC): 4 Walk 50 ft with 2 Turns(QC): 3 Walk 150 ft (QC): 3 Walking 10ft/uneven surface-QC: 88 Gait Persons Needed: 1 Gait Assistive Device: FWW Wheelchair Training Does the Pt Use a Wheelchair?: Yes Distance: 50'x2 Wheel 50 ft with 2 turns (QC): 2 Wheel 150 ft (QC): 3 Type of Wheelchair: Manual Stair Training 1 Step (curb) (QC): 88 4 Steps (QC): 88 12 Steps (QC): 88 Balance Picking up an Object (QC): 88 ADL-Treatment Eating (QC): 5 Oral Hygiene (QC): 6 Bathing Location: L Arm, R Arm, L Upper Leg, R Upper Leg, L Lower Leg (including foot), R Lower Leg (including foot), Chest, Abdomen, Buttocks, Perineal Area Shower/Bathe Self (QC): 7 Upper Body Dressing (QC): 5 Lower Body Dressing (QC): 4 On/Off Footwear (QC): 5 Toileting Hygiene (QC): 4 Toilet Transfer (QC): 4 Assessment/Plan Assessment and Plan Assess & Plan/Chief Complaint Assessment: CVA subacute not a tPa candidate New atrial fibrillation placed on oral anticoagulation and consult cardiology 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 Confusion now resolved Expressive aphasia much improved HTN HLP Chronic pain Osteoarthritis Cognitive decline with paranoia noted as outpatient in past 1 year Plan: Oral anticoagulation Aggressive rehab Supportive care Fall risk 12/01/21: Supportive care Monitor BP 12/02/21: Monitor BP Incontinence care 12/03/21: Monitor BP 12/04/21: Improved status Monitor closely 12/05/2021: Supportive care Fall risk 12/06/21: Ultram for pain as she takes at home No other concerns 12/07/21: Monitor closely Ultram PT OT 12/08/21: PT/OT Dramatic improvement 12/09/2021: Fall risk Increase independence (1) Cerebrovascular accident due to cerebral artery occlusion Status: Acute (2) Hypertension Status: Chronic (3) Osteoarthritis Status: Chronic (4) Insomnia Status: Chronic (5) Atrial fibrillation Status: Acute (6) Overactive bladder Status: Chronic (7) History of bowel resection Status: Chronic LUIS FELIPE COREAS DO Dec 09, 2021 06:19
[2021-12-09 07:25] VITALS: BP 118/83
--- NOTE | 2021-12-09 08:14 | Occupational Ther Daily Note ---
OT Current Status-Daily Note Subjective Pt alert, sitting in recliner. Pt agrees to therapy. No c/o pain. Mental Status/Objective Patient Orientation: Person, Confused (memory), Place, Time, Situation ADL-Treatment 1st session ()-Pt agrees to shower. Setup for eating. CGA to ambulate a few steps using FWW from recliner to w/c, cues for safe stand to sit. CGA to transfer into shower using grabbars and shower bench. CGA while pt doffed pants in standing, pt using grabbar to stabilize. Set up for water temp in shower, pt set up own soap/washcloth. Pt bathed all areas in sitting. After set up, pt able to complete upper body dressing by self. Pt threaded lower body clothing over feet then CGA in standing while pt stabilized with one hand and hiked pants over hips with other. Set up for donning/doffing socks. Independent with oral care. CGA for toilet transfer. CGA while pt stabilized with grabbar when pt manipulated clothing and cleansed self. After session, pt sitting in recliner with call light/phone in reach. Safety measures in place. All needs met. Therapy Code Descriptions/Definitions Functional [place] Measure: 0=Not Assessed/NA 4=Minimal Assistance 1=Total Assistance 5=Supervision or Setup 2=Maximal Assistance 6=Modified [place] 3=Moderate Assistance 7=Complete IndependenceSCALE: Activities may be completed with or without assistive devices. 1-Oxunxxnfwb-voqasvj completes the activity by him/herself with no assistance from a helper. 5-Set-up or Clean-up Assistance-helper sets up or cleans up; patient completes activity. [place] assists only prior to or following the activity. 4-Supervision or Touching Assistance-helper provides verbal cues and/or touching/steadying and/or contact guard assistance as patient completes activity. Assistance may be provided throughout the activity or intermittently. 3-Partial/Moderate Assistance-helper does LESS THAN HALF the effort. [place] lifts, holds or supports trunk or limbs, but provides less than half the effort. 2-Substantial/Maximal Assistance-helper does MORE THAN HALF the effort. [place] lifts or holds trunk or limbs and provides more than half the effort. 5-Rxnrjxvhz-qhacjt does ALL the effort. Patient does none of the effort to complete the activity. Or, the assistance of 2 or more helpers is required for the patient to complete the activity. If activity was not attempted, code reason: 7-Patient Refused. 9-Not Applicable-not attempted and the patient did not perform the activity before the current illness, exacerbation or injury. 10-Not Attempted due to Environmental Limitations-(lack of equipment, weather restraints, etc.). 88-Not Attempted due to Medical Conditions or Safety Concerns. Eating (QC): 5 Oral Hygiene (QC): 6 Shower/Bathe Self (QC): 4 (SBA for safety.) Upper Body Dressing (QC): 5 Lower Body Dressing (QC): 4 On/Off Footwear: 5 Toileting Hygiene (QC): 4 Toilet Transfer (QC): 4 Other Treatment 2nd session ([id number]) Co-treat with [employer] to increase safety awareness during functional tasks. [employer] focusing on memory, problem solving and sequencing while OT focusing functional safety, sequencing functional task, maneuvering self in kitchen either with FWW or w/c. Pt requires verbal cues and mod A for w/c mobility. Pt required written instructions and 1:1 guidance to follow instructions to microwave cook nbw-d-ucoqix. Pt followed instructions appropriately though when need for problem solving, max A required. After therapy, pt sitting in recliner with call light/phone in reach. All needs met in room. OT Short Term Goals Short Term Goals Time Frame: Dec 14, 2021 Eatin Oral hygiene: 4 Toileting hygiene: 2 Shower/bathe self: 2 Upper body dressin Lower body dressin Putting on/taking off footwear: 2 OT Life Educator Goals Custodial Goals Time Frame: Dec 28, 2021 Eating (QC): 5 Oral Hygiene (QC): 6 Toileting Hygiene (QC): 4 Shower/Bathe Self (QC): 4 Upper Body Dressing (QC): 4 Lower Body Dressing (QC): 4 On/Off Footwear (QC): 4 1=Demonstrate adherence to instructed precautions during ADL tasks. 2=Patient will verbalize/demonstrate understanding of assistive devices/modifications for ADL. 3=Patient will improve strength/tolerance for activity to enable patient to perform ADL's. OT Education/Plan Problem List/Assessment Assessment: Decreased Activ Tolerance, Decreased Safety Aware, Decreased UE Strength (LUE), Impaired Cognition, Impaired Coordination, Impaired Funct Balance, Impaired Self-Care Skills, Restricted Funct UE ROM (LUE) Discharge Recommendations Plan/Recommendations: Continue POC Treatment Plan/Plan of Care Patient would benefit from OT for education, treatment and training to promote independence in ADL's, mobility, safety and/or upper extremity function for ADL's. Plan of Care: ADL Retraining, Caregiver Training, Cognitive Retraining, Funct ional Mobility, Group Exercise/Act as Ind, UE Funct Exercise/Act, UE Neuromus Re-Ed/Coord, Visual/Perceptual Retrain, W/C Management Training Treatment Duration: Dec 28, 2021 Frequency: Modified Program (IRF) Estimated Hrs Per Day: 1 hour per day (75-90 min/day) Agreement: Yes Rehab Potential: Fair Time/GCodes Start Time: 07:15 (0845) Stop Time: 08:00 (914) Total Time Billed (hr/min): 75 Billed Treatment Time 1 visit([id number]) ADL 3 (45 min) 1 visit ([id number]) FA 2 (30 min) cotreat with [employer] 30 min ROHIT BENTLEY Dec 09, 2021 08:14
[2021-12-09] MEDS: ASPIRIN 325 MG (5 GR) TABLET PO SCH (08:32)
[2021-12-09] MEDS: APIXABAN 2.5 MG (ELIQUIS) TABLET PO SCH ×2 (08:33→20:35)
[2021-12-09] MEDS: amLODIPine 2.5MG (NORVASC) TAB PO SCH (08:33)
[2021-12-09] MEDS: SENNOSIDES 8.6 MG (SENOKOT) TAB PO SCH ×2 (08:34→20:35)
[2021-12-09] MEDS: DOCUSATE SODIUM 100 MG (COLACE) CAP PO SCH ×2 (08:35→20:35)
--- NOTE | 2021-12-09 09:52 | Speech Therapy Daily Note ---
Speech Daily Progress Note Subjective Date Seen by Provider: Dec 09, 2021 Time Seen by Provider: 08:45 The patient was seated upright in her recliner, awake and alert upon entrance to her room by the clinician. The patient greeted the clinician appropriately and was agreeable to participation in the cognitive linguistic treatment session. Objective Speech pathology completed a co-treatment session with occupational therapy. Speech pathology focused on increased/improved memory, problem solving and sequencing while occupational therapy focused on functional safety, sequencing functional task, and maneuvering self in kitchen either with FWW or w/c. The patient completed a functional task of cooking macaroni and cheese (microwavable). The patient completed the task with fair accuracy, requiring ini tiation of each step with a verbal cue from the clinician. Left neglect was visualized during the patient's attempt to propel self in her wheelchair to the kitchen area. Assessment Assessment Current Status: Fair Progress Treatment Plan Continue Plan of Care Speech Short Term Goals Short Term Goals Short Term Goals 1. The patient will demonstrated 80% accuracy on memory exercises with mild clinician verbal and visual cueing. Time Frame-STG: One Week. Speech Dog Hair Clipper Goals Longterm Goals 1. The patient will improve cognitive linguistic skills for a safe discharge to the least restricted environment. Time Frame: Two Weeks. Speech-Plan Treatment Plan Speech Therapy Treatment Plan: Continue Plan of Care Treatment Duration: Dec 14, 2021 Frequency: Modified Program (IRF) (Three to five times per week.) Estimated Hrs Per Day: .5 hour per day Rehab Potential: Fair Safety Risks/Education Teaching Recipient: Patient Teaching Methods: Discussion Response to Teaching: Reinforcement Needed Education Topics Provided: Plan of Care, Functional Tasks Time Speech Therapy Time In: 08:45 Speech Therapy Time Out: 09:15 Total Billed Time: 30 Billed Treatment Time SRINIVASAN Woods [facility] Dec 09, 2021 09:52
--- NOTE | 2021-12-09 12:14 | Physical Therapy Daily Note ---
PT Daily Note-Current Subjective [id number] Upon arrival, pt was seated in recliner. Pt states that she sleep fine. Pt agrees to PT. [id number]- Upon arrival, pt was supine in bed. Pt states that she has pain in her lumbar 8/10. Pt agrees to PT. Pain Comment: Pt reports no pain at this time. Mental Status Patient Orientation: Person, Place, Situation Transfers SCALE: Activities may be completed with or without assistive devices. 1-Srzypmrpzz-gzbzggi completes the activity by him/herself with no assistance from a helper. 5-Set-up or Clean-up Assistance-helper sets up or cleans up; patient completes activity. [place] assists only prior to or following the activity. 4-Supervision or Touching Assistance-helper provides verbal cues and/or touching/steadying and/or contact guard assistance as patient completes activity. Assistance may be provided throughout the activity or intermittently. 3-Partial/Moderate Assistance-helper does LESS THAN HALF the effort. [place] lifts, holds or supports trunk or limbs, but provides less than half the effort. 2-Substantial/Maximal Assistance-helper does MORE THAN HALF the effort. [place] lifts or holds trunk or limbs and provides more than half the effort. 0-Bnjuybtsb-igfhgh does ALL the effort. Patient does none of the effort to complete the activity. Or, the assistance of 2 or more helpers is required for the patient to complete the activity. If activity was not attempted, code reason: 7-Patient Refused. 9-Not Applicable-not attempted and the patient did not perform the activity before the current illness, exacerbation or injury. 10-Not Attempted due to Environmental Limitations-(lack of equipment, weather restraints, etc.). 88-Not Attempted due to Medical Conditions or Safety Concerns. Sit to Lying (QC): 4 Sit to Stand (QC): 4 Toilet Transfer (QC): 3 Pt transferred from <-> toilet with Mod A. Pt transferred from <-> bed Min A. Weight Bearing Full Weight Bearing Full Weight Bearing Gait Training Does the Patient Walk?: No and Walking Goal IS indicated Exercises Supine Ex: Heel Slides (7072-3562 10x), Straight leg raise (2906-0076 20), Hip abd/add Supine Reps: 15 Seated Therapy Exercises: Ankle pumps, Long arc quads, Shoulder Abd, Hamstring Curls, Hip abd/add Seated Reps: 15 Treatments [id number] Pt performed and completed all Exs listed above. Pt reported that she was tired from all that she had done this morning and stated that she would try and ambulated later in the day. During tx session, pt had to use BR 2x, and had incontinence in her brief that required changing. Once Pt was concluded, pt was supine in bed, with call light and tray in reach and all needs met. [id number] Pt performed Exs listed above. Pt states that she is getting very tired and doesn't know is she can do anymore. Pt states that she thinks she is done with PT and questions why she has more. PT educates pt on why PT is here, and that on the Inpt floor, there is a set amount of time that has to be completed for inpt rehab. PT states to pt that PT understands that the pt is tired and that if she wants to be done with the session, we will be done with the tx session. Once PT was concluded, pts RN arrives with meds. Pt had call light and tray in reach and all needs met. Pts RN was still present, when PT exited. Assessment Current Status: Fair Progress Pt may need checked on frequently, due to having a wet brief 2x, during tx session. Pt would benefit from continued PT to improve on strength, and activity tolerance [id number] Pt would benefit from continued PT to improve on activity tolerance and strength. PT Short Term Goals Short Term Goals Time Frame: Dec 07, 2021 Roll Left & Right: 3 (modA) Sit to lyin (moA) Lying to sitting on side of be: 3 (modA) Sit to stand: 3 (modA) Chair/thb-ks-zxplt transfer: 3 (modA) PT Digital Learning Platforms Manager Goals Residential Goals PT Digital Learning Platforms Manager Goals Time Frame: Dec 21, 2021 Roll Left & Right (QC): 3 (Jonathan) Sit to Lying (QC): 3 (Jonathan) Lying-Sitting on Side/Bed(QC): 3 (Jonathan) Sit to Stand (QC): 3 (Jonathan) Chair/Bpz-vm-Uspoh Xfer(QC): 3 (Jonathan) Toilet Transfer (QC): 3 (Jonathan) Car Transfer (QC): 3 (Jonathan) Does the Patient Walk: No and Walking Goal IS indicated Walk 10 feet (QC): 3 (modA) Walk 50ft with 2 Turns (QC): 88 Walk 150 ft (QC): 88 Walking 10ft on Uneven Surface: 88 1 Step (curb) (QC): 88 4 Steps (QC): 88 12 Steps (QC): 88 Picking up an Object (QC): 88 Wheel 50 feet with 2 turns (QC: 4 (SBA) Wheel 150 feet: 4 (SBA) PT Plan Problem List Problem List: Activity Tolerance, Functional Strength Treatment/Plan Treatment Plan: Continue Plan of Care Treatment Plan: Bed Mobility, Education, Functional Activity Anitra, Functional Strength, Group Therapy, Gait, Safety, Therapeutic Exercise, Transfers Treatment Duration: Dec 21, 2021 Frequency: At least 5 of 7 days/Wk (IRF) Estimated Hrs Per Day: 1.5 hours per day Patient and/or Family Agrees t: Yes Safety Risks/Education Patient Education: Transfer Techniques, Correct Positioning, Safety Issues Teaching Recipient: Patient Teaching Methods: Discussion Response to Teaching: Verbalize Understanding Time/GCodes Time In: 1030 Time Out: 1130 Total Billed Treatment Time: 60 Total Billed Treatment [id number] 1, 2 (30) Exs, 2 (30) FA. [id number] 1, (18) Exs CHRISTOPHE ADAMS PTA Dec 09, 2021 12:14
[2021-12-09 19:53] VITALS: BP 132/63
[2021-12-09] MEDS: ZOLPIDEM 5 MG (AMBIEN) TAB PO SCH (20:35)
--- NOTE | 2021-12-10 06:14 | PM&R Progress Note ---
Subjective HPI/CC On Admission Date Seen by Provider: Dec 10, 2021 Time Seen by Provider: 10:30 Subjective/Events-last exam 12/10/2021: Patient doing well No pain Ultram taken on regular basis as baseline No falls Lost 6 # since last seen in my office 12/09/2021: Patient doing well No pain reported Dramatically improved No falls 12/08/21: Pt is doing pretty well Had a headache, received Ultram Loose stools No other concerns 12/07/21: Patient doing well Daughter and son at the bedside and we talked about the need to stay as long as possible to gain strength Memory loss discussed and will allow CVA recovery until we entertain that No pain 12/06/21: Patient doing well No pain is reported Left side is moving really well Asked again why she cannot go home 12/05/2021: Patient had a really good mood Wants to go home and asking again over and over the same question so her cognition has variability No falls Moving left side really well 12/04/2021: Pt doing well Lucid thought process now Ultram for shoulder pain Bowels moved a couple of days ago will give her stool softeners 12/03/21: Pt is doing pretty well Incontinence noted Dementia issues are apparent Daughter wants to know if she can be started on dementia medication and an appetite stimulant, but she is just really not stable enough neurologically to start meds. Appetite stimulant is not indicated at this time. 12/02/21: Pt is doing really well Discontinued spencer catheter, she is incontinent Post void residual is minimal Will increase PO fluids Discontinue telemetry Allevyn will be placed on her bottom due to high risk for stage 1 Incontinent of stool last night so will monitor that closely 12/01/21: Pt had her spencer taken out Incontinent of urine Labs look okay Discontinue telemetry because it is afib Participating with all therapies Review of Systems Neurological: Weakness Objective Exam Vital Signs Vital Signs Date Time Temp Pulse Resp B/P (MAP) Pulse Ox O2 Delivery O2 Flow Rate FiO2 12/10/21 20:09 Room Air 12/10/21 19:51 36.8 80 18 118/65 (82) 96 Capillary Refill : General Appearance: No Apparent Distress, WD/WN, Chronically ill, Obese HEENT: PERRL/EOMI, Normal ENT Inspection, Pharynx Normal Neck: Full Range of Motion, Normal Inspection, Non Tender, Supple, Carotid Bruit Respiratory: Chest Non Tender, Lungs Clear, Normal Breath Sounds, No Accessory Muscle Use, No Respiratory Distress Cardiovascular: Regular Rate, Rhythm, No Edema, No Gallop, No JVD, No Murmur, Normal Peripheral Pulses Gastrointestinal: Normal Bowel Sounds, No Organomegaly, No Pulsatile Mass, Non Tender, Soft Back: Normal Inspection, No CVA Tenderness, No Vertebral Tenderness Extremity: Normal Capillary Refill, Normal Inspection, Normal Range of Motion, Non Tender, No Calf Tenderness, No Pedal Edema Neurologic/Psychiatric: Alert, Oriented x3, Normal Mood/Affect, chauffeur airport limousine II-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 FIM Transfers Therapy Code Descriptions/Definitions Functional [place] Measure: 0=Not Assessed/NA 4=Minimal Assistance 1=Total Assistance 5=Supervision or Setup 2=Maximal Assistance 6=Modified [place] 3=Moderate Assistance 7=Complete IndependenceSCALE: Activities may be completed with or without assistive devices. 4-Ojzutoubqr-frdgzgi completes the activity by him/herself with no assistance from a helper. 5-Set-up or Clean-up Assistance-helper sets up or cleans up; patient completes activity. [place] assists only prior to or following the activity. 4-Supervision or Touching Assistance-helper provides verbal cues and/or touching/steadying and/or contact guard assistance as patient completes activity. Assistance may be provided throughout the activity or intermittently. 3-Partial/Moderate Assistance-helper does LESS THAN HALF the effort. [place] lifts, holds or supports trunk or limbs, but provides less than half the effort. 2-Substantial/Maximal Assistance-helper does MORE THAN HALF the effort. [place] lifts or holds trunk or limbs and provides more than half the effort. 8-Wdybqnuhs-qhfgba does ALL the effort. Patient does none of the effort to complete the activity. Or, the assistance of 2 or more helpers is required for the patient to complete the activity. If activity was not attempted, code reason: 7-Patient Refused. 9-Not Applicable-not attempted and the patient did not perform the activity before the current illness, exacerbation or injury. 10-Not Attempted due to Environmental Limitations-(lack of equipment, weather restraints, etc.). 88-Not Attempted due to Medical Conditions or Safety Concerns. Roll Left to Right (QC): 4 Sit to Lying (QC): 4 Sit to Stand (QC): 4 Chair/Eqz-ax-Rekdq Xfer(QC): 4 Car Transfer (QC): 2 Gait Training Does the Patient Walk?: No and Walking Goal IS indicated Distance: 200 Walk 10 feet (QC): 4 Walk 50 ft with 2 Turns(QC): 3 Walk 150 ft (QC): 3 Walking 10ft/uneven surface-QC: 88 Gait Persons Needed: 1 Gait Assistive Device: FWW Wheelchair Training Does the Pt Use a Wheelchair?: Yes Distance: 50'x2 Wheel 50 ft with 2 turns (QC): 2 Wheel 150 ft (QC): 3 Type of Wheelchair: Manual Stair Training 1 Step (curb) (QC): 88 4 Steps (QC): 88 12 Steps (QC): 88 Balance Picking up an Object (QC): 88 ADL-Treatment Eating (QC): 5 Oral Hygiene (QC): 6 Bathing Location: L Arm, R Arm, L Upper Leg, R Upper Leg, L Lower Leg (including foot), R Lower Leg (including foot), Chest, Abdomen, Buttocks, Perineal Area Shower/Bathe Self (QC): 4 (SBA for safety.) Upper Body Dressing (QC): 5 Lower Body Dressing (QC): 4 On/Off Footwear (QC): 5 Toileting Hygiene (QC): 4 Toilet Transfer (QC): 4 Assessment/Plan Assessment and Plan Assess & Plan/Chief Complaint Assessment: CVA subacute not a tPa candidate New atrial fibrillation placed on oral anticoagulation and consult cardiology 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 Confusion now resolved Expressive aphasia much improved HTN HLP Chronic pain Osteoarthritis Cognitive decline with paranoia noted as outpatient in past 1 year Weight loss 6# since last seen in my clinic currently 124# Plan: Oral anticoagulation Aggressive rehab Supportive care Fall risk 12/01/21: Supportive care Monitor BP 12/02/21: Monitor BP Incontinence care 12/03/21: Monitor BP 12/04/21: Improved status Monitor closely 12/05/2021: Supportive care Fall risk 12/06/21: Ultram for pain as she takes at home No other concerns 12/07/21: Monitor closely Ultram PT OT 12/08/21: PT/OT Dramatic improvement 12/09/2021: Fall risk Increase independence 12/10/2021: Increase nutrition (1) Cerebrovascular accident due to cerebral artery occlusion Status: Acute (2) Hypertension Status: Chronic (3) Osteoarthritis Status: Chronic (4) Insomnia Status: Chronic (5) Atrial fibrillation Status: Acute (6) Overactive bladder Status: Chronic (7) History of bowel resection Status: Chronic LUIS FELIPE COREAS DO Dec 10, 2021 06:14
[2021-12-10] MEDS: APIXABAN 2.5 MG (ELIQUIS) TABLET PO SCH ×2 (07:30→20:03)
[2021-12-10] MEDS: ASPIRIN 325 MG (5 GR) TABLET PO SCH (07:30)
[2021-12-10] MEDS: amLODIPine 2.5MG (NORVASC) TAB PO SCH (07:30)
[2021-12-10] MEDS: ACETAMINOPHEN 325 MG TABLET PO PRN (07:31)
[2021-12-10 07:46] VITALS: BP 126/62
[2021-12-10 07:50] VITALS: BP 126/62
[2021-12-10] MEDS: SENNOSIDES 8.6 MG (SENOKOT) TAB PO SCH ×2 (09:00→19:26)
[2021-12-10] MEDS: DOCUSATE SODIUM 100 MG (COLACE) CAP PO SCH ×2 (09:00→19:26)
--- NOTE | 2021-12-10 09:19 | Speech Therapy Daily Note ---
Speech Daily Progress Note Subjective Date Seen by Provider: Dec 10, 2021 Time Seen by Provider: 08:45 The patient was seated upright in her recliner, awake and alert upon entrance to her room by the clinician. The patient greeted the clinician appropriately and was agreeable to participation in the cognitive linguistic treatment session. The patient does require frequent verbal prompting throughout the session for continued participation and alertness, as the patient frequently closed her eyes and reduced interaction with the clinician. Objective - Orientation: The patient remains 100% independently oriented to self, location, month, day of the week, date, and year. - Short Term Recall: The patient was read aloud a short paragraph containing three to four sentences. Immediately following the paragraph, the patient was asked a question regarding information in the paragraph by the clinician. When the paragraph was read first, followed by the question, the patient displayed 0% accuracy. When the question was provided first and the paragraph followed (second attempt), the patient displayed 30% accuracy with moderate clinician verbal prompting. Assessment Assessment Current Status: Fair Progress Treatment Plan Continue Plan of Care Speech Short Term Goals Short Term Goals Short Term Goals 1. The patient will demonstrated 80% accuracy on memory exercises with mild clinician verbal and visual cueing. Time Frame-STG: One Week. Speech Waist Cutter Goals [facility] Goals 1. The patient will improve cognitive linguistic skills for a safe discharge to the least restricted environment. Time Frame: Two Weeks. Speech-Plan Treatment Plan Speech Therapy Treatment Plan: Continue Plan of Care Treatment Duration: Dec 14, 2021 Frequency: Modified Program (IRF) (Three to five times per week.) Estimated Hrs Per Day: .5 hour per day Rehab Potential: Fair Pt/Family Agrees to Plan: Yes Safety Risks/Education Teaching Recipient: Patient Teaching Methods: Discussion Response to Teaching: Reinforcement Needed Education Topics Provided: Internal Memory Strategies Time Speech Therapy Time In: 08:45 Speech Therapy Time Out: 09:15 Total Billed Time: 30 Billed Treatment Time SRINIVASAN Woods [facility] Dec 10, 2021 09:19
--- NOTE | 2021-12-10 10:41 | Occupational Ther Daily Note ---
OT Current Status-Daily Note Subjective Pt alert, sitting up in recliner. Pt agrees to therapy. Pt states that headache feels better now than earlier this morning. Mental Status/Objective Patient Orientation: Person, Confused, Place, Time, Situation ADL-Treatment Pt declines shower. Pt then requested to use toilet. Pt pulled to stand using grabbars with CGA. CGA to SPT from w/c to toilet and manipulate clothing/hygi kervin. Pt sits at sink to completes grooming and oral care independently. Therapy Code Descriptions/Definitions Functional [place] Measure: 0=Not Assessed/NA 4=Minimal Assistance 1=Total Assistance 5=Supervision or Setup 2=Maximal Assistance 6=Modified [place] 3=Moderate Assistance 7=Complete IndependenceSCALE: Activities may be completed with or without assistive devices. 5-Jbdgxdchoc-qvbapya completes the activity by him/herself with no assistance from a helper. 5-Set-up or Clean-up Assistance-helper sets up or cleans up; patient completes activity. [place] assists only prior to or following the activity. 4-Supervision or Touching Assistance-helper provides verbal cues and/or touching/steadying and/or contact guard assistance as patient completes activity. Assistance may be provided throughout the activity or intermittently. 3-Partial/Moderate Assistance-helper does LESS THAN HALF the effort. [place] lifts, holds or supports trunk or limbs, but provides less than half the effort. 2-Substantial/Maximal Assistance-helper does MORE THAN HALF the effort. [place] lifts or holds trunk or limbs and provides more than half the effort. 4-Aaywlixay-hctwdk does ALL the effort. Patient does none of the effort to complete the activity. Or, the assistance of 2 or more helpers is required for the patient to complete the activity. If activity was not attempted, code reason: 7-Patient Refused. 9-Not Applicable-not attempted and the patient did not perform the activity before the current illness, exacerbation or injury. 10-Not Attempted due to Environmental Limitations-(lack of equipment, weather restraints, etc.). 88-Not Attempted due to Medical Conditions or Safety Concerns. Oral Hygiene (QC): 6 Toileting Hygiene (QC): 4 Toilet Transfer (QC): 4 Other Treatment Pt completes B UE tasks working on strength and dexterity for gross and fine motor skills. Wrist flex/ext and uln/rad deviation with 2# wts 3 sets 10 reps requiring physical cues for correct technique. Pt unable to maintain wax pattern coater with L hand throughout wt exercises. Fine motor tasks to increase dexterity and co ordination of L hand. Pt has difficulty with opposition of thumb during gripping or pinching. Pt working on therapy sponge to increase strength of B hands. After therapy, pt sitting in recliner with call light/phone in reach. All needs met in room. OT Short Term Goals Short Term Goals Time Frame: Dec 14, 2021 Eatin Oral hygiene: 4 Toileting hygiene: 2 Shower/bathe self: 2 Upper body dressin Lower body dressin Putting on/taking off footwear: 2 OT Extras Casting Director Goals [facility] Goals Time Frame: Dec 28, 2021 Eating (QC): 5 Oral Hygiene (QC): 6 Toileting Hygiene (QC): 4 Shower/Bathe Self (QC): 4 Upper Body Dressing (QC): 4 Lower Body Dressing (QC): 4 On/Off Footwear (QC): 4 1=Demonstrate adherence to instructed precautions during ADL tasks. 2=Patient will verbalize/demonstrate understanding of assistive devices/modifications for ADL. 3=Patient will improve strength/tolerance for activity to enable patient to perform ADL's. OT Education/Plan Problem List/Assessment Assessment: Decreased Activ Tolerance, Decreased UE Strength, Impaired Cognition, Impaired Self-Care Skills, Restricted Funct UE ROM Discharge Recommendations Plan/Recommendations: Continue POC Treatment Plan/Plan of Care Patient would benefit from OT for education, treatment and training to promote independence in ADL's, mobility, safety and/or upper extremity function for ADL's. Plan of Care: ADL Retraining, Caregiver Training, Cognitive Retraining, Functional Mobility, Group Exercise/Act as Ind, UE Funct Exercise/Act, UE Neuromus Re-Ed/Coord, Visual/Perceptual Retrain, W/C Management Training Treatment Duration: Dec 28, 2021 Frequency: Modified Program (IRF) Estimated Hrs Per Day: 1 hour per day (75-90 min/day) Agreement: Yes Rehab Potential: Fair Time/GCodes Start Time: 09:15 Stop Time: 10:30 Total Time Billed (hr/min): 75 Billed Treatment Time 1 visit-ADL 2 (30 min) NM 2 (45 min) ROHIT BENTLEY Dec 10, 2021 10:41
[2021-12-10] MEDS ORDERED: ATEN50TA PO (11:30)
--- NOTE | 2021-12-10 12:10 | Physical Therapy Daily Note ---
PT Daily Note-Current Subjective Pt in recliner upon arrival and agrees to PT. Pt reports she had a headache earlier today but this has now subsided. Mental Status Patient Orientation: Person, Place, Time, Situation Transfers SCALE: Activities may be completed with or without assistive devices. 3-Fpgppadwwe-oblespo completes the activity by him/herself with no assistance from a helper. 5-Set-up or Clean-up Assistance-helper sets up or cleans up; patient completes activity. [place] assists only prior to or following the activity. 4-Supervision or Touching Assistance-helper provides verbal cues and/or touching/steadying and/or contact guard assistance as patient completes activity. Assistance may be provided throughout the activity or intermittently. 3-Partial/Moderate Assistance-helper does LESS THAN HALF the effort. [place] lifts, holds or supports trunk or limbs, but provides less than half the effort. 2-Substantial/Maximal Assistance-helper does MORE THAN HALF the effort. [place] lifts or holds trunk or limbs and provides more than half the effort. 4-Jdgytkixi-ngsanw does ALL the effort. Patient does none of the effort to complete the activity. Or, the assistance of 2 or more helpers is required for the patient to complete the activity. If activity was not attempted, code reason: 7-Patient Refused. 9-Not Applicable-not attempted and the patient did not perform the activity before the current illness, exacerbation or injury. 10-Not Attempted due to Environmental Limitations-(lack of equipment, weather restraints, etc.). 88-Not Attempted due to Medical Conditions or Safety Concerns. Sit to Lying (QC): 4 Sit to Stand (QC): 4 Weight Bearing Full Weight Bearing Full Weight Bearing Gait Training Does the Patient Walk?: Yes Distance: 80' x 1, 45' x 1, 125' x 1 Walk 10 feet (QC): 4 Walk 50 ft with 2 Turns(QC): 4 Gait Persons Needed: 1 Gait Assistive Device: FWW trendelenburg Exercises Seated Therapy Exercises: Ankle pumps, Sit to stand, Long arc quads, Hip flexion, Hamstring Curls, Hip abd/add, Glut set Seated Reps: [address] Ex=Flex, Abd, Ext Standing Reps: 10 Treatments Pt amb from room and then needs rest break following 80'. Then pt able to amb rest of way to gym following rest. Pt then TFs to nustep and then pt performs standing exs and seated exs. Pt then amb back to room and TFs back to bed. Call light nearby and all needs met as PT departs. Nursing present. Assessment Current Status: Good Progress Pt required recurrent cues for hand and foot placement during TFs. Pt required cues in order to not let LLE fall into valgus while on nustep. PT Short Term Goals Short Term Goals Time Frame: Dec 07, 2021 Roll Left & Right: 3 (modA) Sit to lyin (moA) Lying to sitting on side of be: 3 (modA) Sit to stand: 3 (modA) Chair/tya-zd-ppzqd transfer: 3 (modA) PT Network Support Analyst Goals Network Support Analyst Goals PT Intermediate Goals Time Frame: Dec 21, 2021 Roll Left & Right (QC): 3 (Jonahtan) Sit to Lying (QC): 3 (Jonathan) Lying-Sitting on Side/Bed(QC): 3 (Jonathan) Sit to Stand (QC): 3 (Jonathan) Chair/Zik-wi-Qemth Xfer(QC): 3 (Jonathan) Toilet Transfer (QC): 3 (Jonathan) Car Transfer (QC): 3 (Jonathan) Does the Patient Walk: No and Walking Goal IS indicated Walk 10 feet (QC): 3 (modA) Walk 50ft with 2 Turns (QC): 88 Walk 150 ft (QC): 88 Walking 10ft on Uneven Surface: 88 1 Step (curb) (QC): 88 4 Steps (QC): 88 12 Steps (QC): 88 Picking up an Object (QC): 88 Wheel 50 feet with 2 turns (QC: 4 (SBA) Wheel 150 feet: 4 (SBA) PT Plan Problem List Problem List: Activity Tolerance, Functional Strength, Safety, Gait, Transfer Treatment/Plan Treatment Plan: Continue Plan of Care Treatment Plan: Bed Mobility, Education, Functional Activity Anitra, Functional Strength, Group Therapy, Gait, Safety, Therapeutic Exercise, Transfers Treatment Duration: Dec 21, 2021 Frequency: At least 5 of 7 days/Wk (IRF) Estimated Hrs Per Day: 1.5 hours per day Patient and/or Family Agrees t: Yes Safety Risks/Education Patient Education: Gait Training, Transfer Techniques, Correct Positioning Teaching Recipient: Patient Teaching Methods: Discussion Response to Teaching: Return Demonstration Time/GCodes Time In: 1030 Time Out: 1135 Total Billed Treatment Time: 65 Total Billed Treatment 1, Ex x 3 45min, GT 20min MIKAEL JAY COATER Dec 10, 2021 12:10
--- NOTE | 2021-12-10 13:17 | Physical Therapy Daily Note ---
PT Daily Note-Current Subjective Pt in bed upon arrival and agrees to perform some bed exs. Pt had not yet received lunch upon arrival.Once lunch arrives pt requests to be done w/ therapy for the day because she is too tired. Mental Status Patient Orientation: Person, Place, Time, Situation Transfers SCALE: Activities may be completed with or without assistive devices. 6-Dhumjmbdwj-pnvhpjh completes the activity by him/herself with no assistance from a helper. 5-Set-up or Clean-up Assistance-helper sets up or cleans up; patient completes activity. [place] assists only prior to or following the activity. 4-Supervision or Touching Assistance-helper provides verbal cues and/or touching/steadying and/or contact guard assistance as patient completes activity. Assistance may be provided throughout the activity or intermittently. 3-Partial/Moderate Assistance-helper does LESS THAN HALF the effort. [place] lifts, holds or supports trunk or limbs, but provides less than half the effort. 2-Substantial/Maximal Assistance-helper does MORE THAN HALF the effort. [place] lifts or holds trunk or limbs and provides more than half the effort. 0-Nfktwhjku-lguuug does ALL the effort. Patient does none of the effort to complete the activity. Or, the assistance of 2 or more helpers is required for the patient to complete the activity. If activity was not attempted, code reason: 7-Patient Refused. 9-Not Applicable-not attempted and the patient did not perform the activity before the current illness, exacerbation or injury. 10-Not Attempted due to Environmental Limitations-(lack of equipment, weather restraints, etc.). 88-Not Attempted due to Medical Conditions or Safety Concerns. Weight Bearing Full Weight Bearing Full Weight Bearing Exercises Supine Ex: Ankle pumps, Quad Set, Hip abd/add Supine Reps: 15 Treatments Pt performs exs in bed and then when pts lunch arrives pt requests to be done w/ therapy for the day. All needs met and call light nearby as PT departs. Assessment Current Status: Fair Progress Attempted to convince pt to perform a few more exs before eating lunch but pt requested to be done w/ therapy for the day. PT Short Term Goals Short Term Goals Time Frame: Dec 07, 2021 Roll Left & Right: 3 (modA) Sit to lyin (moA) Lying to sitting on side of be: 3 (modA) Sit to stand: 3 (modA) Chair/wii-en-izxfn transfer: 3 (modA) PT Physical Meteorologist Goals Longterm Goals PT Physical Meteorologist Goals Time Frame: Dec 21, 2021 Roll Left & Right (QC): 3 (Jonathan) Sit to Lying (QC): 3 (Jonathan) Lying-Sitting on Side/Bed(QC): 3 (Jonathan) Sit to Stand (QC): 3 (Jonathan) Chair/Tyb-ex-Hxeks Xfer(QC): 3 (Jonathan) Toilet Transfer (QC): 3 (Jonathan) Car Transfer (QC): 3 (Jonathan) Does the Patient Walk: No and Walking Goal IS indicated Walk 10 feet (QC): 3 (modA) Walk 50ft with 2 Turns (QC): 88 Walk 150 ft (QC): 88 Walking 10ft on Uneven Surface: 88 1 Step (curb) (QC): 88 4 Steps (QC): 88 12 Steps (QC): 88 Picking up an Object (QC): 88 Wheel 50 feet with 2 turns (QC: 4 (SBA) Wheel 150 feet: 4 (SBA) PT Plan Problem List Problem List: Functional Strength Treatment/Plan Treatment Plan: Continue Plan of Care Treatment Plan: Bed Mobility, Education, Functional Activity Anitra, Functional Strength, Group Therapy, Gait, Safety, Therapeutic Exercise, Transfers Treatment Duration: Dec 21, 2021 Frequency: At least 5 of 7 days/Wk (IRF) Estimated Hrs Per Day: 1.5 hours per day Patient and/or Family Agrees t: Yes Safety Risks/Education Patient Education: Correct Positioning Teaching Recipient: Patient Teaching Methods: Discussion Response to Teaching: Return Demonstration Time/GCodes Time In: 1300 Time Out: 1310 Total Billed Treatment Time: 10 Total Billed Treatment 1, Ex MIKAEL JAY RIGHT OF WAY CUTTER Dec 10, 2021 13:17
[2021-12-10 19:51] VITALS: BP 118/65
[2021-12-10] MEDS: ZOLPIDEM 5 MG (AMBIEN) TAB PO SCH (20:03)
[2021-12-11 07:31] VITALS: BP 131/78
[2021-12-11] MEDS: DOCUSATE SODIUM 100 MG (COLACE) CAP PO SCH ×2 (08:17→21:03)
[2021-12-11] MEDS: amLODIPine 2.5MG (NORVASC) TAB PO SCH (08:17)
[2021-12-11] MEDS: APIXABAN 2.5 MG (ELIQUIS) TABLET PO SCH ×2 (08:17→21:03)
[2021-12-11] MEDS: ASPIRIN 325 MG (5 GR) TABLET PO SCH (08:17)
[2021-12-11] MEDS: SENNOSIDES 8.6 MG (SENOKOT) TAB PO SCH ×2 (08:29→21:03)
--- NOTE | 2021-12-11 08:45 | Occupational Ther Daily Note ---
OT Current Status-Daily Note Subjective Pt alert, sitting in recliner. Pt agrees to therapy. No c/o pain. Mental Status/Objective Patient Orientation: Person, Confused (memory and problem solving), Place, Time, Situation ADL-Treatment Pt agrees to shower. Independent with eating. Pt ambulates to bathroom with CGA using FWW. CGA to transfer to toilet. Close SBA to manipulate clothing, sitting on toilet to complete hygiene independently. Ambulated to shower using FWW, min A to transfer into shower. Sitting on bench entire shower, pt compl eted with SBA. Pt stated that she cleansed mitch area/buttocks in sitting. After set up, pt completed upper body dressing by self. Pt threaded lower body clothing over feet by self then close SBA to hike pants over hips. Set up for footwear. Independent for oral care and grooming. After session, pt sitting in recliner with call light/phone in reach. All needs met in room. Therapy Code Descriptions/Definitions Functional [place] Measure: 0=Not Assessed/NA 4=Minimal Assistance 1=Total Assistance 5=Supervision or Setup 2=Maximal Assistance 6=Modified [place] 3=Moderate Assistance 7=Complete IndependenceSCALE: Activities may be completed with or without assistive devices. 5-Vdbnyqclzd-naeqvpu completes the activity by him/herself with no assistance from a helper. 5-Set-up or Clean-up Assistance-helper sets up or cleans up; patient completes activity. [place] assists only prior to or following the activity. 4-Supervision or Touching Assistance-helper provides verbal cues and/or touching/steadying and/or contact guard assistance as patient completes activity. Assistance may be provided throughout the activity or intermittently. 3-Partial/Moderate Assistance-helper does LESS THAN HALF the effort. [place] lifts, holds or supports trunk or limbs, but provides less than half the effort. 2-Substantial/Maximal Assistance-helper does MORE THAN HALF the effort. [place] lifts or holds trunk or limbs and provides more than half the effort. 3-Gjwcmmegk-xvodvn does ALL the effort. Patient does none of the effort to complete the activity. Or, the assistance of 2 or more helpers is required for the patient to complete the activity. If activity was not attempted, code reason: 7-Patient Refused. 9-Not Applicable-not attempted and the patient did not perform the activity before the current illness, exacerbation or injury. 10-Not Attempted due to Environmental Limitations-(lack of equipment, weather restraints, etc.). 88-Not Attempted due to Medical Conditions or Safety Concerns. Eating (QC): 6 Oral Hygiene (QC): 6 Shower/Bathe Self (QC): 4 Upper Body Dressing (QC): 5 Lower Body Dressing (QC): 4 On/Off Footwear: 5 Toileting Hygiene (QC): 4 Toilet Transfer (QC): 4 OT Short Term Goals Short Term Goals Time Frame: Dec 14, 2021 Eatin Oral hygiene: 4 Toileting hygiene: 2 Shower/bathe self: 2 Upper body dressin Lower body dressin Putting on/taking off footwear: 2 OT Fci Goals Fci Goals Time Frame: Dec 28, 2021 Eating (QC): 5 Oral Hygiene (QC): 6 Toileting Hygiene (QC): 4 Shower/Bathe Self (QC): 4 Upper Body Dressing (QC): 4 Lower Body Dressing (QC): 4 On/Off Footwear (QC): 4 1=Demonstrate adherence to instructed precautions during ADL tasks. 2=Patient will verbalize/demonstrate understanding of assistive devices/modifications for ADL. 3=Patient will improve strength/tolerance for activity to enable patient to perform ADL's. OT Education/Plan Problem List/Assessment Assessment: Decreased Activ Tolerance, Decreased Safety Aware, Impaired Funct Balance, Impaired Self-Care Skills Discharge Recommendations Plan/Recommendations: Continue POC Treatment Plan/Plan of Care Patient would benefit from OT for education, treatment and training to promote independence in ADL's, mobility, safety and/or upper extremity function for ADL's. Plan of Care: ADL Retraining, Caregiver Training, Cognitive Retraining, Functional Mobility, Group Exercise/Act as Ind, UE Funct Exercise/Act, UE Neuromus Re-Ed/Coord, Visual/Perceptual Retrain, W/C Management Training Treatment Duration: Dec 28, 2021 Frequency: Modified Program (IRF) Estimated Hrs Per Day: 1 hour per day (75-90 min/day) Agreement: Yes Rehab Potential: Fair Time/GCodes Start Time: 07:20 Stop Time: 08:20 Total Time Billed (hr/min): 60 Billed Treatment Time 1 visit-ADL 4 (60 min) ROHIT BENTLEY Dec 11, 2021 08:45
--- NOTE | 2021-12-11 09:45 | Speech Therapy Daily Note ---
Speech Daily Progress Note Subjective Date Seen by Provider: Dec 11, 2021 Time Seen by Provider: 08:30 The patient was seated upright in her recliner, awake and alert upon entrance to her room by the clinician. The patient greeted the clinician appropriately and was agreeable to participation in the cognitive linguistic treatment session. Objective - Orientation: The patient is independently oriented to self, location, month, day of week, date, and year. - Delayed Recall: The patient was provided five items and asked to recall the five items in three minutes. The items were repeated two times and category cues were provided with initial presentation. The patient was able to recall five of five items in three minutes, independently. The patient additionally completed immediate recall of information provided by a paragraph read by the clinician. The patient displayed 33% (2/6) accuracy with mild clinician cueing. Assessment Assessment Current Status: Fair Progress Treatment Plan Continue Plan of Care Speech Short Term Goals Short Term Goals Short Term Goals 1. The patient will demonstrated 80% accuracy on memory exercises with mild clinician verbal and visual cueing. Time Frame-STG: One Week. Speech Bricklayer Goals Pen[facility]iary Goals 1. The patient will improve cognitive linguistic skills for a safe discharge to the least restricted environment. Time Frame: Two Weeks. Speech-Plan Treatment Plan Speech Therapy Treatment Plan: Continue Plan of Care Treatment Duration: Dec 14, 2021 Frequency: Modified Program (IRF) (Three to five times per week.) Estimated Hrs Per Day: .5 hour per day Rehab Potential: Fair Safety Risks/Education Teaching Recipient: Patient Teaching Methods: Discussion Response to Teaching: Reinforcement Needed Education Topics Provided: Internal Memory Strategies Time Speech Therapy Time In: 08:30 Speech Therapy Time Out: 09:00 Total Billed Time: 30 Billed Treatment Time ChuckSRINIVASAN ELIZABETH ST Dec 11, 2021 09:45
--- NOTE | 2021-12-11 09:58 | Physical Therapy Daily Note ---
PT Daily Note-Current Subjective Pt. and present, dtr present via Feedback-Machine for family training and education. and dtr share home set up and scenarios they would question. Dtr requests w/c training as she feels her Mom may be more vulnerable to falls and asks about her ability to walk 50 ft. Pt. declines stair training secondary to fatigue Pain Location: No Pain Reported Mental Status Patient Orientation: Person, Place Transfers SCALE: Activities may be completed with or without assistive devices. 6-Pvbngfnswz-bmgcbef completes the activity by him/herself with no assistance from a helper. 5-Set-up or Clean-up Assistance-helper sets up or cleans up; patient completes activity. [place] assists only prior to or following the activity. 4-Supervision or Touching Assistance-helper provides verbal cues and/or touching/steadying and/or contact guard assistance as patient completes activity. Assistance may be provided throughout the activity or intermittently. 3-Partial/Moderate Assistance-helper does LESS THAN HALF the effort. [place] lifts, holds or supports trunk or limbs, but provides less than half the effort. 2-Substantial/Maximal Assistance-helper does MORE THAN HALF the effort. [place] lifts or holds trunk or limbs and provides more than half the effort. 9-Jxcctbwha-xofbsl does ALL the effort. Patient does none of the effort to complete the activity. Or, the assistance of 2 or more helpers is required for the patient to complete the activity. If activity was not attempted, code reason: 7-Patient Refused. 9-Not Applicable-not attempted and the patient did not perform the activity before the current illness, exacerbation or injury. 10-Not Attempted due to Environmental Limitations-(lack of equipment, weather restraints, etc.). 88-Not Attempted due to Medical Conditions or Safety Concerns. Roll Left & Right (QC): 6 Sit to Lying (QC): 6 Lying to Sitting/Side of Bed(Q: 6 Sit to Stand (QC): 6 Chair/Puc-wo-Nohij Xfer(QC): 4 Toilet Transfer (QC): 6 Car Transfer (QC): 6 TRFd in out bed on same side she uses at home indep with bed flat, needs supervision and cuing for safety in out car Weight Bearing Full Weight Bearing Full Weight Bearing Gait Training Does the Patient Walk?: Yes Walk 10 feet (QC): 4 Walk 50 ft with 2 Turns(QC): 4 Gait Persons Needed: 1 Gait Assistive Device: FWW very narrow ANGELIKA, many crossovers, noted significant drift to left, post polio posture with significant scoliosis, flat footed etc, all adding to pts need for supervision, cuing and sometimes CGA for gait. ambulated 50ft, 30ftx3 observed this today, will invite for another training session hands on Wheelchair Training Does the Pt Use a Wheelchair?: Yes Wheel 50 ft with 2 turns (QC): 4 Type of Wheelchair: Manual needs mod to min assist for w/c mob and many reminders for brakes and steering, veers left and ignores left Treatments pt. family education and discussion regarding home situation, co Rx with OT so as to include all disciplines in facetime conference with dtr. Assessment Current Status: Good Progress will need assist for safe funct mob PT Short Term Goals Short Term Goals Time Frame: Dec 07, 2021 Roll Left & Right: 3 (modA) Sit to lyin (moA) Lying to sitting on side of be: 3 (modA) Sit to stand: 3 (modA) Chair/wyr-ft-jonto transfer: 3 (modA) PT Mcc Goals Primary Mill Roller Goals PT Primary Mill Roller Goals Time Frame: Dec 21, 2021 Roll Left & Right (QC): 3 (Jonathan) Sit to Lying (QC): 3 (Jonathan) Lying-Sitting on Side/Bed(QC): 3 (Jonathan) Sit to Stand (QC): 3 (Jonathan) Chair/Bog-cy-Tsgth Xfer(QC): 3 (Jonathan) Toilet Transfer (QC): 3 (Jonathan) Car Transfer (QC): 3 (Jonathan) Does the Patient Walk: No and Walking Goal IS indicated Walk 10 feet (QC): 3 (modA) Walk 50ft with 2 Turns (QC): 88 Walk 150 ft (QC): 88 Walking 10ft on Uneven Surface: 88 1 Step (curb) (QC): 88 4 Steps (QC): 88 12 Steps (QC): 88 Picking up an Object (QC): 88 Wheel 50 feet with 2 turns (QC: 4 (SBA) Wheel 150 feet: 4 (SBA) PT Plan Treatment/Plan Treatment Plan: Continue Plan of Care Treatment Plan: Bed Mobility, Education, Functional Activity Anitra, Functional Strength, Group Therapy, Gait, Safety, Therapeutic Exercise, Transfers Treatment Duration: Dec 21, 2021 Frequency: At least 5 of 7 days/Wk (IRF) Estimated Hrs Per Day: 1.5 hours per day Patient and/or Family Agrees t: Yes Safety Risks/Education Patient Education: Gait Training, Transfer Techniques, Correct Positioning, W/C Management, Safety Issues Teaching Recipient: Patient, Family Teaching Methods: Demonstration, Discussion Response to Teaching: Verbalize Understanding, Return Demonstration, Reinforcement Needed Time/GCodes Time In: 900 Time Out: 1000 Total Billed Treatment Time: 60 Total Billed Treatment 1,WC15m,FA25m,GT20m NATALIE LADD APPAREL CUTTER Dec 11, 2021 09:58
--- NOTE | 2021-12-11 10:52 | Physical Therapy Daily Note ---
PT Daily Note-Current Subjective Patient agrees to PT. Transfers SCALE: Activities may be completed with or without assistive devices. 8-Fixrfmongd-vihyxds completes the activity by him/herself with no assistance from a helper. 5-Set-up or Clean-up Assistance-helper sets up or cleans up; patient completes activity. [place] assists only prior to or following the activity. 4-Supervision or Touching Assistance-helper provides verbal cues and/or touching/steadying and/or contact guard assistance as patient completes activity. Assistance may be provided throughout the activity or intermittently. 3-Partial/Moderate Assistance-helper does LESS THAN HALF the effort. [place] lifts, holds or supports trunk or limbs, but provides less than half the effort. 2-Substantial/Maximal Assistance-helper does MORE THAN HALF the effort. [place] lifts or holds trunk or limbs and provides more than half the effort. 3-Jaktgwcyu-mwiaep does ALL the effort. Patient does none of the effort to complete the activity. Or, the assistance of 2 or more helpers is required for the patient to complete the activity. If activity was not attempted, code reason: 7-Patient Refused. 9-Not Applicable-not attempted and the patient did not perform the activity before the current illness, exacerbation or injury. 10-Not Attempted due to Environmental Limitations-(lack of equipment, weather restraints, etc.). 88-Not Attempted due to Medical Conditions or Safety Concerns. Weight Bearing Full Weight Bearing Full Weight Bearing Exercises Supine Ex: Ankle pumps, Quad Set, Glut sets, Heel Slides, Straight leg raise, Hip abd/add Supine Reps: 15 (bilaterally) Assessment Patient remains in bed. Bed exercises performed AROM bilaterally. Noted left LE diminished coordination with exercises. PT Short Term Goals Short Term Goals Time Frame: Dec 07, 2021 Roll Left & Right: 3 (modA) Sit to lyin (moA) Lying to sitting on side of be: 3 (modA) Sit to stand: 3 (modA) Chair/cys-eh-mptqd transfer: 3 (modA) PT Special Delivery Mail Carrier Goals Special Delivery Mail Carrier Goals PT Half-Way Goals Time Frame: Dec 21, 2021 Roll Left & Right (QC): 3 (Jonathan) Sit to Lying (QC): 3 (Jonathan) Lying-Sitting on Side/Bed(QC): 3 (Jonathan) Sit to Stand (QC): 3 (Jonathan) Chair/Zup-kt-Xngmr Xfer(QC): 3 (Jonathan) Toilet Transfer (QC): 3 (Jonathan) Car Transfer (QC): 3 (Jonathan) Does the Patient Walk: No and Walking Goal IS indicated Walk 10 feet (QC): 3 (modA) Walk 50ft with 2 Turns (QC): 88 Walk 150 ft (QC): 88 Walking 10ft on Uneven Surface: 88 1 Step (curb) (QC): 88 4 Steps (QC): 88 12 Steps (QC): 88 Picking up an Object (QC): 88 Wheel 50 feet with 2 turns (QC: 4 (SBA) Wheel 150 feet: 4 (SBA) PT Plan Treatment/Plan Treatment Plan: Continue Plan of Care Treatment Plan: Bed Mobility, Education, Functional Activity Anitra, Functional Strength, Group Therapy, Gait, Safety, Therapeutic Exercise, Transfers Treatment Duration: Dec 21, 2021 Frequency: At least 5 of 7 days/Wk (IRF) Estimated Hrs Per Day: 1.5 hours per day Patient and/or Family Agrees t: Yes Time/GCodes Time In: 1030 Time Out: 1046 Total Billed Treatment Time: 16 Total Billed Treatment 1 visit EX 16 min KELLEN BRANNON PT Dec 11, 2021 10:52
--- NOTE | 2021-12-11 11:04 | Occupational Ther Daily Note ---
OT Current Status-Daily Note Subjective Pt alert, sitting in recliner. Family training completed today. OT/PT co-treat ([id number]), skills of 2 clinician required for skilled training with family and pt working on skills that will ensure successful discharge to home. PT focusing on transfer, ambulation and OT focusing on ADLs, functional mobility. Pt and present, dtr present via facetime for family training and education. and dtr share home set up and scenarios they would question. Dtr requests w/c training as she feels her Mom may be more vulnerable to falls and asks about her ability to walk 50 ft. Mental Status/Objective Patient Orientation: Person, Place, Time, Situation ADL-Treatment Therapy Code Descriptions/Definitions Functional [place] Measure: 0=Not Assessed/NA 4=Minimal Assistance 1=Total Assistance 5=Supervision or Setup 2=Maximal Assistance 6=Modified [place] 3=Moderate Assistance 7=Complete IndependenceSCALE: Activities may be completed with or without assistive devices. 9-Qlxfegsyez-fjzfydf completes the activity by him/herself with no assistance from a helper. 5-Set-up or Clean-up Assistance-helper sets up or cleans up; patient completes activity. [place] assists only prior to or following the activity. 4-Supervision or Touching Assistance-helper provides verbal cues and/or touching/steadying and/or contact guard assistance as patient completes activity. Assistance may be provided throughout the activity or intermittently. 3-Partial/Moderate Assistance-helper does LESS THAN HALF the effort. [place] lifts, holds or supports trunk or limbs, but provides less than half the effort. 2-Substantial/Maximal Assistance-helper does MORE THAN HALF the effort. [place] lifts or holds trunk or limbs and provides more than half the effort. 3-Rbvyvdnea-lxbkya does ALL the effort. Patient does none of the effort to complete the activity. Or, the assistance of 2 or more helpers is required for the patient to complete the activity. If activity was not attempted, code reason: 7-Patient Refused. 9-Not Applicable-not attempted and the patient did not perform the activity before the current illness, exacerbation or injury. 10-Not Attempted due to Environmental Limitations-(lack of equipment, weather restraints, etc.). 88-Not Attempted due to Medical Conditions or Safety Concerns. Other Treatment Pt was able to go through bed mobility, transfers and ambulation with CGA to supervision. Pt's daughter talks about utilizing w/c at home when pt is fatigued or having arthritis pain then at all other times using FWW. Pt does not think this will be necessary, but daughter convinces pt that it is better to have this in place if needed. Pt will have to continue to work on w/c mobility due to L neglect and L sided weakness. Pt unable to propel w/c by self. See PT notes for ambulation and home stair set up. Pt left in care of HELPER MARBLE FINISHER. All needs met. OT Short Term Goals Short Term Goals Time Frame: Dec 14, 2021 Eatin Oral hygiene: 4 Toileting hygiene: 2 Shower/bathe self: 2 Upper body dressin Lower body dressin Putting on/taking off footwear: 2 OT Fpc Goals Fpc Goals Time Frame: Dec 28, 2021 Eating (QC): 5 Oral Hygiene (QC): 6 Toileting Hygiene (QC): 4 Shower/Bathe Self (QC): 4 Upper Body Dressing (QC): 4 Lower Body Dressing (QC): 4 On/Off Footwear (QC): 4 1=Demonstrate adherence to instructed precautions during ADL tasks. 2=Patient will verbalize/demonstrate understanding of assistive devices/modifications for ADL. 3=Patient will improve strength/tolerance for activity to enable patient to perform ADL's. OT Education/Plan Problem List/Assessment Assessment: Decreased Activ Tolerance, Decreased Safety Aware Discharge Recommendations Plan/Recommendations: Continue POC Treatment Plan/Plan of Care Patient would benefit from OT for education, treatment and training to promote independence in ADL's, mobility, safety and/or upper extremity function for ADL's. Plan of Care: ADL Retraining, Caregiver Training, Cognitive Retraining, Functional Mobility, Group Exercise/Act as Ind, UE Funct Exercise/Act, UE Neuromus Re-Ed/Coord, Visual/Perceptual Retrain, W/C Management Training Treatment Duration: Dec 28, 2021 Frequency: Modified Program (IRF) Estimated Hrs Per Day: 1 hour per day (75-90 min/day) Agreement: Yes Rehab Potential: Fair Time/GCodes Start Time: 09:00 Stop Time: 09:40 Total Time Billed (hr/min): 40 Billed Treatment Time 1 visit-FA 3 (40 min) Co-treat with PT 40 min ROHIT BENTLEY Dec 11, 2021 11:04
--- NOTE | 2021-12-11 11:36 | PM&R Progress Note ---
Subjective HPI/CC On Admission Date Seen by Provider: Dec 11, 2021 Time Seen by Provider: 11:15 Subjective/Events-last exam 12/11/2021: No major issues Counseled her in-depth about CVA and AF and details No pain reported Ultram effective as it is at home Daughter still wants her to try Namenda and I have told her not until she is recovered from CVA 12/10/2021: Patient doing well No pain Ultram taken on regular basis as baseline No falls Lost 6 # since last seen in my office 12/09/2021: Patient doing well No pain reported Dramatically improved No falls 12/08/21: Pt is doing pretty well Had a headache, received Ultram Loose stools No other concerns 12/07/21: Patient doing well Daughter and son at the bedside and we talked about the need to stay as long as possible to gain strength Memory loss discussed and will allow CVA recovery until we entertain that No pain 12/06/21: Patient doing well No pain is reported Left side is moving really well Asked again why she cannot go home 12/05/2021: Patient had a really good mood Wants to go home and asking again over and over the same question so her cognition has variability No falls Moving left side really well 12/04/2021: Pt doing well Lucid thought process now Ultram for shoulder pain Bowels moved a couple of days ago will give her stool softeners 12/03/21: Pt is doing pretty well Incontinence noted Dementia issues are apparent Daughter wants to know if she can be started on dementia medication and an appetite stimulant, but she is just really not stable enough neurologically to start meds. Appetite stimulant is not indicated at this time. 12/02/21: Pt is doing really well Discontinued spencer catheter, she is incontinent Post void residual is minimal Will increase PO fluids Discontinue telemetry Allevyn will be placed on her bottom due to high risk for stage 1 Incontinent of stool last night so will monitor that closely 12/01/21: Pt had her spencer taken out Incontinent of urine Labs look okay Discontinue telemetry because it is afib Participating with all therapies Review of Systems General: Fatigue, Malaise Objective Exam Vital Signs Vital Signs Date Time Temp Pulse Resp B/P (MAP) Pulse Ox O2 Delivery O2 Flow Rate FiO2 12/11/21 08:49 Room Air 12/11/21 07:31 36.1 88 16 131/78 (74) 96 Capillary Refill : General Appearance: No Apparent Distress, WD/WN, Chronically ill, Obese HEENT: PERRL/EOMI, Normal ENT Inspection, Pharynx Normal Neck: Full Range of Motion, Normal Inspection, Non Tender, Supple, Carotid Bruit Respiratory: Chest Non Tender, Lungs Clear, Normal Breath Sounds, No Accessory Muscle Use, No Respiratory Distress Cardiovascular: Regular Rate, Rhythm, No Edema, No Gallop, No JVD, No Murmur, Normal Peripheral Pulses Gastrointestinal: Normal Bowel Sounds, No Organomegaly, No Pulsatile Mass, Non Tender, Soft Back: Normal Inspection, No CVA Tenderness, No Vertebral Tenderness Extremity: Normal Capillary Refill, Normal Inspection, Normal Range of Motion, Non Tender, No Calf Tenderness, No Pedal Edema Neurologic/Psychiatric: Alert, Oriented x3, Normal Mood/Affect, lay out and detail drafter II-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 FIM Transfers Therapy Code Descriptions/Definitions Functional [place] Measure: 0=Not Assessed/NA 4=Minimal Assistance 1=Total Assistance 5=Supervision or Setup 2=Maximal Assistance 6=Modified [place] 3=Moderate Assistance 7=Complete IndependenceSCALE: Activities may be completed with or without assistive devices. 8-Gdynyojnzy-csnvzku completes the activity by him/herself with no assistance from a helper. 5-Set-up or Clean-up Assistance-helper sets up or cleans up; patient completes activity. [place] assists only prior to or following the activity. 4-Supervision or Touching Assistance-helper provides verbal cues and/or touching/steadying and/or contact guard assistance as patient completes activity. Assistance may be provided throughout the activity or intermittently. 3-Partial/Moderate Assistance-helper does LESS THAN HALF the effort. [place] lifts, holds or supports trunk or limbs, but provides less than half the effort. 2-Substantial/Maximal Assistance-helper does MORE THAN HALF the effort. [place] lifts or holds trunk or limbs and provides more than half the effort. 3-Qndieckzp-abkzcl does ALL the effort. Patient does none of the effort to complete the activity. Or, the assistance of 2 or more helpers is required for the patient to complete the activity. If activity was not attempted, code reason: 7-Patient Refused. 9-Not Applicable-not attempted and the patient did not perform the activity before the current illness, exacerbation or injury. 10-Not Attempted due to Environmental Limitations-(lack of equipment, weather restraints, etc.). 88-Not Attempted due to Medical Conditions or Safety Concerns. Roll Left to Right (QC): 6 Sit to Lying (QC): 6 Sit to Stand (QC): 6 Chair/Ecw-ew-Qzilr Xfer(QC): 4 Car Transfer (QC): 6 Gait Training Does the Patient Walk?: Yes Distance: 80' x 1, 45' x 1, 125' x 1 Walk 10 feet (QC): 4 Walk 50 ft with 2 Turns(QC): 4 Walk 150 ft (QC): 3 Walking 10ft/uneven surface-QC: 88 Gait Persons Needed: 1 Gait Assistive Device: FWW Wheelchair Training Does the Pt Use a Wheelchair?: Yes Distance: 50'x2 Wheel 50 ft with 2 turns (QC): 4 Wheel 150 ft (QC): 3 Type of Wheelchair: Manual Stair Training 1 Step (curb) (QC): 88 4 Steps (QC): 88 12 Steps (QC): 88 Balance Picking up an Object (QC): 88 ADL-Treatment Eating (QC): 6 Oral Hygiene (QC): 6 Bathing Location: L Arm, R Arm, L Upper Leg, R Upper Leg, L Lower Leg (inclu ding foot), R Lower Leg (including foot), Chest, Abdomen, Buttocks, Perineal Area Shower/Bathe Self (QC): 4 Upper Body Dressing (QC): 5 Lower Body Dressing (QC): 4 On/Off Footwear (QC): 5 Toileting Hygiene (QC): 4 Toilet Transfer (QC): 4 Assessment/Plan Assessment and Plan Assess & Plan/Chief Complaint Assessment: CVA subacute not a tPa candidate New atrial fibrillation placed on oral anticoagulation and consult cardiology 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 Confusion now resolved Expressive aphasia much improved HTN HLP Chronic pain Osteoarthritis Cognitive decline with paranoia noted as outpatient in past 1 year Weight loss 6# since last seen in my clinic currently 124# Plan: Oral anticoagulation Aggressive rehab Supportive care Fall risk 12/01/21: Supportive care Monitor BP 12/02/21: Monitor BP Incontinence care 12/03/21: Monitor BP 12/04/21: Improved status Monitor closely 12/05/2021: Supportive care Fall risk 12/06/21: Ultram for pain as she takes at home No other concerns 12/07/21: Monitor closely Ultram PT OT 12/08/21: PT/OT Dramatic improvement 12/09/2021: Fall risk Increase independence 12/10/2021: Increase nutrition 12/11/21: Monitor closely Increase portion of nutrition (1) Cerebrovascular accident due to cerebral artery occlusion Status: Acute (2) Hypertension Status: Chronic (3) Osteoarthritis Status: Chronic (4) Insomnia Status: Chronic (5) Atrial fibrillation Status: Acute (6) Overactive bladder Status: Chronic (7) History of bowel resection Status: Chronic LUIS FELIPE COREAS DO Dec 11, 2021 11:36
[2021-12-11 20:19] VITALS: BP 139/92
[2021-12-11] MEDS: ZOLPIDEM 5 MG (AMBIEN) TAB PO SCH (21:03)
--- NOTE | 2021-12-12 06:09 | PM&R Progress Note ---
Subjective HPI/CC On Admission Date Seen by Provider: Dec 12, 2021 Time Seen by Provider: 11:30 Subjective/Events-last exam 12/12/2021: Patient doing well and granddaughter at the bedside No pain is reported Ultram used for shoulder pain Checked meds and labs 12/11/2021: No major issues Counseled her in-depth about CVA and AF and details No pain reported Ultram effective as it is at home Daughter still wants her to try Namenda and I have told her not until she is recovered from CVA 12/10/2021: Patient doing well No pain Ultram taken on regular basis as baseline No falls Lost 6 # since last seen in my office 12/09/2021: Patient doing well No pain reported Dramatically improved No falls 12/08/21: Pt is doing pretty well Had a headache, received Ultram Loose stools No other concerns 12/07/21: Patient doing well Daughter and son at the bedside and we talked about the need to stay as long as possible to gain strength Memory loss discussed and will allow CVA recovery until we entertain that No pain 12/06/21: Patient doing well No pain is reported Left side is moving really well Asked again why she cannot go home 12/05/2021: Patient had a really good mood Wants to go home and asking again over and over the same question so her cognition has variability No falls Moving left side really well 12/04/2021: Pt doing well Lucid thought process now Ultram for shoulder pain Bowels moved a couple of days ago will give her stool softeners 12/03/21: Pt is doing pretty well Incontinence noted Dementia issues are apparent Daughter wants to know if she can be started on dementia medication and an appetite stimulant, but she is just really not stable enough neurologically to start meds. Appetite stimulant is not indicated at this time. 12/02/21: Pt is doing really well Discontinued spencer catheter, she is incontinent Post void residual is minimal Will increase PO fluids Discontinue telemetry Allevyn will be placed on her bottom due to high risk for stage 1 Incontinent of stool last night so will monitor that closely 12/01/21: Pt had her spencer taken out Incontinent of urine Labs look okay Discontinue telemetry because it is afib Participating with all therapies Review of Systems Neurological: Weakness, Incoordination Objective Exam Vital Signs Vital Signs Date Time Temp Pulse Resp B/P (MAP) Pulse Ox O2 Delivery O2 Flow Rate FiO2 12/12/21 21:04 Room Air 12/12/21 20:00 36.7 83 18 132/64 (86) 96 Capillary Refill : General Appearance: No Apparent Distress, WD/WN, Chronically ill, Obese HEENT: PERRL/EOMI, Normal ENT Inspection, Pharynx Normal Neck: Full Range of Motion, Normal Inspection, Non Tender, Supple, Carotid Bruit Respiratory: Chest Non Tender, Lungs Clear, Normal Breath Sounds, No Accessory Muscle Use, No Respiratory Distress Cardiovascular: Regular Rate, Rhythm, No Edema, No Gallop, No JVD, No Murmur, Normal Peripheral Pulses Gastrointestinal: Normal Bowel Sounds, No Organomegaly, No Pulsatile Mass, Non Tender, Soft Back: Normal Inspection, No CVA Tenderness, No Vertebral Tenderness Extremity: Normal Capillary Refill, Normal Inspection, Normal Range of Motion, Non Tender, No Calf Tenderness, No Pedal Edema Neurologic/Psychiatric: Alert, Oriented x3, Normal Mood/Affect, financial assistance specialist II-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 FIM Transfers Therapy Code Descriptions/Definitions Functional [place] Measure: 0=Not Assessed/NA 4=Minimal Assistance 1=Total Assistance 5=Supervision or Setup 2=Maximal Assistance 6=Modified [place] 3=Moderate Assistance 7=Complete IndependenceSCALE: Activities may be completed with or without assistive devices. 3-Erhrvqdfwo-nnblxau completes the activity by him/herself with no assistance from a helper. 5-Set-up or Clean-up Assistance-helper sets up or cleans up; patient completes activity. [place] assists only prior to or following the activity. 4-Supervision or Touching Assistance-helper provides verbal cues and/or touching/steadying and/or contact guard assistance as patient completes activity. Assistance may be provided throughout the activity or intermittently. 3-Partial/Moderate Assistance-helper does LESS THAN HALF the effort. [place] lifts, holds or supports trunk or limbs, but provides less than half the effort. 2-Substantial/Maximal Assistance-helper does MORE THAN HALF the effort. [place] lifts or holds trunk or limbs and provides more than half the effort. 1-Myortpljs-qfsfhj does ALL the effort. Patient does none of the effort to complete the activity. Or, the assistance of 2 or more helpers is required for the patient to complete the activity. If activity was not attempted, code reason: 7-Patient Refused. 9-Not Applicable-not attempted and the patient did not perform the activity be fore the current illness, exacerbation or injury. 10-Not Attempted due to Environmental Limitations-(lack of equipment, weather restraints, etc.). 88-Not Attempted due to Medical Conditions or Safety Concerns. Roll Left to Right (QC): 6 Sit to Lying (QC): 6 Sit to Stand (QC): 6 Chair/Tbr-su-Xcqxi Xfer(QC): 4 Car Transfer (QC): 6 Gait Training Does the Patient Walk?: Yes Distance: 80' x 1, 45' x 1, 125' x 1 Walk 10 feet (QC): 4 Walk 50 ft with 2 Turns(QC): 4 Walk 150 ft (QC): 3 Walking 10ft/uneven surface-QC: 88 Gait Persons Needed: 1 Gait Assistive Device: FWW Wheelchair Training Does the Pt Use a Wheelchair?: Yes Distance: 50'x2 Wheel 50 ft with 2 turns (QC): 4 Wheel 150 ft (QC): 3 Type of Wheelchair: Manual Stair Training 1 Step (curb) (QC): 88 4 Steps (QC): 88 12 Steps (QC): 88 Balance Picking up an Object (QC): 88 ADL-Treatment Eating (QC): 6 Oral Hygiene (QC): 6 Bathing Location: L Arm, R Arm, L Upper Leg, R Upper Leg, L Lower Leg (including foot), R Lower Leg (including foot), Chest, Abdomen, Buttocks, Perineal Area Shower/Bathe Self (QC): 4 Upper Body Dressing (QC): 5 Lower Body Dressing (QC): 4 On/Off Footwear (QC): 5 Toileting Hygiene (QC): 4 Toilet Transfer (QC): 4 Assessment/Plan Assessment and Plan Assess & Plan/Chief Complaint Assessment: CVA subacute not a tPa candidate New atrial fibrillation placed on oral anticoagulation and consult cardiology 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 Confusion now resolved Expressive aphasia much improved HTN HLP Chronic pain Osteoarthritis Cognitive decline with paranoia noted as outpatient in past 1 year Weight loss 6# since last seen in my clinic currently 124# Plan: Oral anticoagulation Aggressive rehab Supportive care Fall risk 12/01/21: Supportive care Monitor BP 12/02/21: Monitor BP Incontinence care 12/03/21: Monitor BP 12/04/21: Improved status Monitor closely 12/05/2021: Supportive care Fall risk 12/06/21: Ultram for pain as she takes at home No other concerns 12/07/21: Monitor closely Ultram PT OT 12/08/21: PT/OT Dramatic improvement 12/09/2021: Fall risk Increase independence 12/10/2021: Increase nutrition 12/11/21: Monitor closely Increase portion of nutrition 12/12/2021: Monitor closely (1) Cerebrovascular accident due to cerebral artery occlusion Status: Acute (2) Hypertension Status: Chronic (3) Osteoarthritis Status: Chronic (4) Insomnia Status: Chronic (5) Atrial fibrillation Status: Acute (6) Overactive bladder Status: Chronic (7) History of bowel resection Status: Chronic LUIS FELIPE COREAS DO Dec 12, 2021 06:09
[2021-12-12 08:35] VITALS: BP 126/57
[2021-12-12] MEDS: APIXABAN 2.5 MG (ELIQUIS) TABLET PO SCH ×2 (08:37→20:57)
[2021-12-12] MEDS: amLODIPine 2.5MG (NORVASC) TAB PO SCH (08:37)
[2021-12-12] MEDS: ASPIRIN 325 MG (5 GR) TABLET PO SCH (08:37)
[2021-12-12] MEDS: DOCUSATE SODIUM 100 MG (COLACE) CAP PO SCH ×2 (09:02→20:59)
[2021-12-12] MEDS: SENNOSIDES 8.6 MG (SENOKOT) TAB PO SCH ×2 (09:02→20:59)
--- NOTE | 2021-12-12 10:13 | Physical Therapy Daily Note ---
PT Daily Note-Current Subjective Pt in bed, agreeable. Pain Numeric Pain Scale: 0-No Pain Mental Status Patient Orientation: Person, Place Transfers SCALE: Activities may be completed with or without assistive devices. 4-Umnwpekrpl-rmhaijn completes the activity by him/herself with no assistance from a helper. 5-Set-up or Clean-up Assistance-helper sets up or cleans up; patient completes activity. [place] assists only prior to or following the activity. 4-Supervision or Touching Assistance-helper provides verbal cues and/or touching/steadying and/or contact guard assistance as patient completes activity. Assistance may be provided throughout the activity or intermittently. 3-Partial/Moderate Assistance-helper does LESS THAN HALF the effort. [place] lifts, holds or supports trunk or limbs, but provides less than half the effort. 2-Substantial/Maximal Assistance-helper does MORE THAN HALF the effort. [place] lifts or holds trunk or limbs and provides more than half the effort. 5-Ldkfhzpxg-oowmrn does ALL the effort. Patient does none of the effort to complete the activity. Or, the assistance of 2 or more helpers is required for the patient to complete the activity. If activity was not attempted, code reason: 7-Patient Refused. 9-Not Applicable-not attempted and the patient did not perform the activity before the current illness, exacerbation or injury. 10-Not Attempted due to Environmental Limitations-(lack of equipment, weather restraints, etc.). 88-Not Attempted due to Medical Conditions or Safety Concerns. Roll Left & Right (QC): 6 Sit to Lying (QC): 6 Lying to Sitting/Side of Bed(Q: 6 Sit to Stand (QC): 4 Toilet Transfer (QC): 4 CGA sit<->stand and toilet transfer. Assist with mitch-care and donning pants Weight Bearing Full Weight Bearing Full Weight Bearing Gait Training Does the Patient Walk?: Yes Distance: 50 Walk 10 feet (QC): 4 Walk 50 ft with 2 Turns(QC): 4 Gait Persons Needed: 1 Gait Assistive Device: FWW Pt ambulated with CGA, antalgic "collapsing" gait but no manfred LOB. Pt requires VCS to negotiate around objects in path on (L). Exercises Seated Therapy Exercises: Ankle pumps, Long arc quads, Hip flexion, Hip abd/add Seated Reps: 10 Assessment Current Status: Fair Progress Pt tolerated well. CGA for safety. Returned to bed with alarm activated. PT Short Term Goals Short Term Goals Time Frame: Dec 07, 2021 Roll Left & Right: 3 (modA) Sit to lyin (moA) Lying to sitting on side of be: 3 (modA) Sit to stand: 3 (modA) Chair/dec-ui-hujza transfer: 3 (modA) PT [place] Hand Goals Fdc Goals PT [place] Hand Goals Time Frame: Dec 21, 2021 Roll Left & Right (QC): 3 (Jonathan) Sit to Lying (QC): 3 (Jonathan) Lying-Sitting on Side/Bed(QC): 3 (Jonathan) Sit to Stand (QC): 3 (Jonathan) Chair/Hdl-ki-Qokzd Xfer(QC): 3 (Jonathan) Toilet Transfer (QC): 3 (Jonathan) Car Transfer (QC): 3 (Jonathan) Does the Patient Walk: No and Walking Goal IS indicated Walk 10 feet (QC): 3 (modA) Walk 50ft with 2 Turns (QC): 88 Walk 150 ft (QC): 88 Walking 10ft on Uneven Surface: 88 1 Step (curb) (QC): 88 4 Steps (QC): 88 12 Steps (QC): 88 Picking up an Object (QC): 88 Wheel 50 feet with 2 turns (QC: 4 (SBA) Wheel 150 feet: 4 (SBA) PT Plan Problem List Problem List: Activity Tolerance, Functional Strength, Safety, Balance, Gait, Transfer, Bed Mobility Treatment/Plan Treatment Plan: Continue Plan of Care Treatment Plan: Bed Mobility, Education, Functional Activity Anitra, Functional Strength, Group Therapy, Gait, Safety, Therapeutic Exercise, Transfers Treatment Duration: Dec 21, 2021 Frequency: At least 5 of 7 days/Wk (IRF) Estimated Hrs Per Day: 1.5 hours per day Patient and/or Family Agrees t: Yes Time/GCodes Time In: 0945 Time Out: 1004 Total Billed Treatment Time: 19 Total Billed Treatment 1, FA x 19' LEELEE ROLLINS DPT Dec 12, 2021 10:13
[2021-12-12] MEDS: ACETAMINOPHEN 325 MG TABLET PO PRN (12:51)
[2021-12-12 20:00] VITALS: BP 132/64
[2021-12-12] MEDS: ZOLPIDEM 5 MG (AMBIEN) TAB PO SCH (20:57)
[2021-12-13 07:24] VITALS: BP 149/89
[2021-12-13] MEDS: amLODIPine 2.5MG (NORVASC) TAB PO SCH (07:28)
[2021-12-13] MEDS: ASPIRIN 325 MG (5 GR) TABLET PO SCH (07:29)
[2021-12-13] MEDS: DOCUSATE SODIUM 100 MG (COLACE) CAP PO SCH ×2 (07:29→21:10)
[2021-12-13] MEDS: SENNOSIDES 8.6 MG (SENOKOT) TAB PO SCH ×2 (07:29→21:10)
[2021-12-13] MEDS: APIXABAN 2.5 MG (ELIQUIS) TABLET PO SCH ×2 (07:29→21:08)
--- NOTE | 2021-12-13 07:37 | PM&R Progress Note ---
Subjective HPI/CC On Admission Date Seen by Provider: Dec 13, 2021 Time Seen by Provider: 12:00 Subjective/Events-last exam 12/13/2021: No major issues Feels like she is doing much better Check meds and labs 12/12/2021: Patient doing well and granddaughter at the bedside No pain is reported Ultram used for shoulder pain Checked meds and labs 12/11/2021: No major issues Counseled her in-depth about CVA and AF and details No pain reported Ultram effective as it is at home Daughter still wants her to try Namenda and I have told her not until she is recovered from CVA 12/10/2021: Patient doing well No pain Ultram taken on regular basis as baseline No falls Lost 6 # since last seen in my office 12/09/2021: Patient doing well No pain reported Dramatically improved No falls 12/08/21: Pt is doing pretty well Had a headache, received Ultram Loose stools No other concerns 12/07/21: Patient doing well Daughter and son at the bedside and we talked about the need to stay as long as possible to gain strength Memory loss discussed and will allow CVA recovery until we entertain that No pain 12/06/21: Patient doing well No pain is reported Left side is moving really well Asked again why she cannot go home 12/05/2021: Patient had a really good mood Wants to go home and asking again over and over the same question so her cognition has variability No falls Moving left side really well 12/04/2021: Pt doing well Lucid thought process now Ultram for shoulder pain Bowels moved a couple of days ago will give her stool softeners 12/03/21: Pt is doing pretty well Incontinence noted Dementia issues are apparent Daughter wants to know if she can be started on dementia medication and an appetite stimulant, but she is just really not stable enough neurologically to start meds. Appetite stimulant is not indicated at this time. 12/02/21: Pt is doing really well Discontinued spencer catheter, she is incontinent Post void residual is minimal Will increase PO fluids Discontinue telemetry Allevyn will be placed on her bottom due to high risk for stage 1 Incontinent of stool last night so will monitor that closely 12/01/21: Pt had her spencer taken out Incontinent of urine Labs look okay Discontinue telemetry because it is afib Participating with all therapies Review of Systems General: Fatigue, Malaise Objective Exam Vital Signs Vital Signs Date Time Temp Pulse Resp B/P (MAP) Pulse Ox O2 Delivery O2 Flow Rate FiO2 12/13/21 21:10 97 Room Air 12/13/21 20:00 36.5 79 18 134/72 (92) Capillary Refill : General Appearance: No Apparent Distress, WD/WN, Chronically ill, Obese HEENT: PERRL/EOMI, Normal ENT Inspection, Pharynx Normal Neck: Full Range of Motion, Normal Inspection, Non Tender, Supple, Carotid Bruit Respiratory: Chest Non Tender, Lungs Clear, Normal Breath Sounds, No Accessory Muscle Use, No Respiratory Distress Cardiovascular: Regular Rate, Rhythm, No Edema, No Gallop, No JVD, No Murmur, Normal Peripheral Pulses Gastrointestinal: Normal Bowel Sounds, No Organomegaly, No Pulsatile Mass, Non Tender, Soft Back: Normal Inspection, No CVA Tenderness, No Vertebral Tenderness Extremity: Normal Capillary Refill, Normal Inspection, Normal Range of Motion, Non Tender, No Calf Tenderness, No Pedal Edema Neurologic/Psychiatric: Alert, Oriented x3, Normal Mood/Affect, 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 FIM Transfers Therapy Code Descriptions/Definitions Functional [place] Measure: 0=Not Assessed/NA 4=Minimal Assistance 1=Total Assistance 5=Supervision or Setup 2=Maximal Assistance 6=Modified [place] 3=Moderate Assistance 7=Complete IndependenceSCALE: Activities may be completed with or without assistive devices. 5-Ocsxlpjdro-usvnynm completes the activity by him/herself with no assistance from a helper. 5-Set-up or Clean-up Assistance-helper sets up or cleans up; patient completes activity. [place] assists only prior to or following the activity. 4-Supervision or Touching Assistance-helper provides verbal cues and/or touching/steadying and/or contact guard assistance as patient completes activity. Assistance may be provided throughout the activity or intermittently. 3-Partial/Moderate Assistance-helper does LESS THAN HALF the effort. [place] lifts, holds or supports trunk or limbs, but provides less than half the effort. 2-Substantial/Maximal Assistance-helper does MORE THAN HALF the effort. [place] lifts or holds trunk or limbs and provides more than half the effort. 2-Ztydkvhem-lasvlr does ALL the effort. Patient does none of the effort to complete the activity. Or, the assistance of 2 or more helpers is required for the patient to complete the activity. If activity was not attempted, code reason: 7-Patient Refused. 9-Not Applicable-not attempted and the patient did not perform the activity before the current illness, exacerbation or injury. 10-Not Attempted due to Environmental Limitations-(lack of equipment, weather restraints, etc.). 88-Not Attempted due to Medical Conditions or Safety Concerns. Roll Left to Right (QC): 6 Sit to Lying (QC): 6 Sit to Stand (QC): 4 Chair/Gjv-nx-Uzjdf Xfer(QC): 4 Car Transfer (QC): 6 Gait Training Does the Patient Walk?: Yes Distance: 50 Walk 10 feet (QC): 4 Walk 50 ft with 2 Turns(QC): 4 Walk 150 ft (QC): 3 Walking 10ft/uneven surface-QC: 88 Gait Persons Needed: 1 Gait Assistive Device: FWW Wheelchair Training Does the Pt Use a Wheelchair?: Yes Distance: 50'x2 Wheel 50 ft with 2 turns (QC): 4 Wheel 150 ft (QC): 3 Type of Wheelchair: Manual Stair Training 1 Step (curb) (QC): 88 4 Steps (QC): 88 12 Steps (QC): 88 Balance Picking up an Object (QC): 88 ADL-Treatment Eating (QC): 6 Oral Hygiene (QC): 6 Bathing Location: L Arm, R Arm, L Upper Leg, R Upper Leg, L Lower Leg (including foot), R Lower Leg (including foot), Chest, Abdomen, Buttocks, Perineal Area Shower/Bathe Self (QC): 4 Upper Body Dressing (QC): 5 Lower Body Dressing (QC): 4 On/Off Footwear (QC): 5 Toileting Hygiene (QC): 4 Toilet Transfer (QC): 4 Assessment/Plan Assessment and Plan Assess & Plan/Chief Complaint Assessment: CVA subacute not a tPa candidate New atrial fibrillation placed on oral anticoagulation and consult cardiology 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 Confusion now resolved Expressive aphasia much improved HTN HLP Chronic pain Osteoarthritis Cognitive decline with paranoia noted as outpatient in past 1 year Weight loss 6# since last seen in my clinic currently 124# Plan: Oral anticoagulation Aggressive rehab Supportive care Fall risk 12/01/21: Supportive care Monitor BP 12/02/21: Monitor BP Incontinence care 12/03/21: Monitor BP 12/04/21: Improved status Monitor closely 12/05/2021: Supportive care Fall risk 12/06/21: Ultram for pain as she takes at home No other concerns 12/07/21: Monitor closely Ultram PT OT 12/08/21: PT/OT Dramatic improvement 12/09/2021: Fall risk Increase independence 12/10/2021: Increase nutrition 12/11/21: Monitor closely Increase portion of nutrition 12/12/2021: Monitor closely 12/13/2021: Increase nutrition Fall risk (1) Cerebrovascular accident due to cerebral artery occlusion Status: Acute (2) Hypertension Status: Chronic (3) Osteoarthritis Status: Chronic (4) Insomnia Status: Chronic (5) Atrial fibrillation Status: Acute (6) Overactive bladder Status: Chronic (7) History of bowel resection Status: Chronic LUIS FELIPE COREAS DO Dec 13, 2021 07:37
[2021-12-13] MEDS: ACETAMINOPHEN 325 MG TABLET PO PRN (09:54)
[2021-12-13] MEDS: polyethylene glycoL POWDER 17 GM (MIRALAX) PACK PO PRN (17:38)
[2021-12-13 20:00] VITALS: BP 134/72
[2021-12-13] MEDS: ZOLPIDEM 5 MG (AMBIEN) TAB PO SCH (21:08)
--- NOTE | 2021-12-14 06:20 | PM&R Progress Note ---
Subjective HPI/CC On Admission Date Seen by Provider: Dec 14, 2021 Time Seen by Provider: 10:30 Subjective/Events-last exam 12/14/2021: Patient doing really well Always has plenty of questions Bowels moved today Headache likely is due to the stroke Aspercreme and Ultram will be given 12/13/2021: No major issues Feels like she is doing much better Check meds and labs 12/12/2021: Patient doing well and granddaughter at the bedside No pain is reported Ultram used for shoulder pain Checked meds and labs 12/11/2021: No major issues Counseled her in-depth about CVA and AF and details No pain reported Ultram effective as it is at home Daughter still wants her to try Namenda and I have told her not until she is recovered from CVA 12/10/2021: Patient doing well No pain Ultram taken on regular basis as baseline No falls Lost 6 # since last seen in my office 12/09/2021: Patient doing well No pain reported Dramatically improved No falls 12/08/21: Pt is doing pretty well Had a headache, received Ultram Loose stools No other concerns 12/07/21: Patient doing well Daughter and son at the bedside and we talked about the need to stay as long as possible to gain strength Memory loss discussed and will allow CVA recovery until we entertain that No pain 12/06/21: Patient doing well No pain is reported Left side is moving really well Asked again why she cannot go home 12/05/2021: Patient had a really good mood Wants to go home and asking again over and over the same question so her cognition has variability No falls Moving left side really well 12/04/2021: Pt doing well Lucid thought process now Ultram for shoulder pain Bowels moved a couple of days ago will give her stool softeners 12/03/21: Pt is doing pretty well Incontinence noted Dementia issues are apparent Daughter wants to know if she can be started on dementia medication and an appetite stimulant, but she is just really not stable enough neurologically to start meds. Appetite stimulant is not indicated at this time. 12/02/21: Pt is doing really well Discontinued spencer catheter, she is incontinent Post void residual is minimal Will increase PO fluids Discontinue telemetry Allevyn will be placed on her bottom due to high risk for stage 1 Incontinent of stool last night so will monitor that closely 12/01/21: Pt had her spencer taken out Incontinent of urine Labs look okay Discontinue telemetry because it is afib Participating with all therapies Review of Systems General: Fatigue, Malaise Neurological: Confusion Objective Exam Vital Signs Vital Signs Date Time Temp Pulse Resp B/P (MAP) Pulse Ox O2 Delivery O2 Flow Rate FiO2 12/14/21 20:38 Room Air 12/14/21 20:24 37.0 76 16 129/73 (91) 96 Capillary Refill : General Appearance: No Apparent Distress, WD/WN, Chronically ill, Obese HEENT: PERRL/EOMI, Normal ENT Inspection, Pharynx Normal Neck: Full Range of Motion, Normal Inspection, Non Tender, Supple, Carotid Bruit Respiratory: Chest Non Tender, Lungs Clear, Normal Breath Sounds, No Accessory Muscle Use, No Respiratory Distress Cardiovascular: Regular Rate, Rhythm, No Edema, No Gallop, No JVD, No Murmur, Normal Peripheral Pulses Gastrointestinal: Normal Bowel Sounds, No Organomegaly, No Pulsatile Mass, Non Tender, Soft Back: Normal Inspection, No CVA Tenderness, No Vertebral Tenderness Extremity: Normal Capillary Refill, Normal Inspection, Normal Range of Motion, Non Tender, No Calf Tenderness, No Pedal Edema Neurologic/Psychiatric: Alert, Oriented x3, Normal Mood/Affect, manager project II-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 FIM Transfers Therapy Code Descriptions/Definitions Functional [place] Measure: 0=Not Assessed/NA 4=Minimal Assistance 1=Total Assistance 5=Supervision or Setup 2=Maximal Assistance 6=Modified [place] 3=Moderate Assistance 7=Complete IndependenceSCALE: Activities may be completed with or without assistive devices. 6-Mtvrqublsx-mhmafsy completes the activity by him/herself with no assistance from a helper. 5-Set-up or Clean-up Assistance-helper sets up or cleans up; patient completes activity. [place] assists only prior to or following the activity. 4-Supervision or Touching Assistance-helper provides verbal cues and/or touching/steadying and/or contact guard assistance as patient completes activity. Assistance may be provided throughout the activity or intermittently. 3-Partial/Moderate Assistance-helper does LESS THAN HALF the effort. [place] lifts, holds or supports trunk or limbs, but provides less than half the effort. 2-Substantial/Maximal Assistance-helper does MORE THAN HALF the effort. [place] lifts or holds trunk or limbs and provides more than half the effort. 6-Ihsldlttk-beybhk does ALL the effort. Patient does none of the effort to complete the activity. Or, the assistance of 2 or more helpers is required for the patient to complete the activity. If activity was not attempted, code reason: 7-Patient Refused. 9-Not Applicable-not attempted and the patient did not perform the activity before the current illness, exacerbation or injury. 10-Not Attempted due to Environmental Limitations-(lack of equipment, weather restraints, etc.). 88-Not Attempted due to Medical Conditions or Safety Concerns. Roll Left to Right (QC): 6 Sit to Lying (QC): 6 Sit to Stand (QC): 4 Chair/Mjc-ql-[place] Xfer(QC): 4 Car Transfer (QC): 6 Gait Training Does the Patient Walk?: Yes Distance: 50 Walk 10 feet (QC): 4 Walk 50 ft with 2 Turns(QC): 4 Walk 150 ft (QC): 3 Walking 10ft/uneven surface-QC: 88 Gait Persons Needed: 1 Gait Assistive Device: FWW Wheelchair Training Does the Pt Use a Wheelchair?: Yes Distance: 50'x2 Wheel 50 ft with 2 turns (QC): 4 Wheel 150 ft (QC): 3 Type of Wheelchair: Manual Stair Training 1 Step (curb) (QC): 88 4 Steps (QC): 88 12 Steps (QC): 88 Balance Picking up an Object (QC): 88 ADL-Treatment Eating (QC): 6 Oral Hygiene (QC): 6 Bathing Location: L Arm, R Arm, L Upper Leg, R Upper Leg, L Lower Leg (including foot), R Lower Leg (including foot), Chest, Abdomen, Buttocks, Perineal Area Shower/Bathe Self (QC): 4 Upper Body Dressing (QC): 5 Lower Body Dressing (QC): 4 On/Off Footwear (QC): 5 Toileting Hygiene (QC): 4 Toilet Transfer (QC): 4 Assessment/Plan Assessment and Plan Assess & Plan/Chief Complaint Assessment: CVA subacute not a tPa candidate New atrial fibrillation placed on oral anticoagulation and consult cardiology 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 Confusion now resolved Expressive aphasia much improved HTN HLP Chronic pain Osteoarthritis Cognitive decline with paranoia noted as outpatient in past 1 year Weight loss 6# since last seen in my clinic currently 124# Plan: Oral anticoagulation Aggressive rehab Supportive care Fall risk 12/01/21: Supportive care Monitor BP 12/02/21: Monitor BP Incontinence care 12/03/21: Monitor BP 12/04/21: Improved status Monitor closely 12/05/2021: Supportive care Fall risk 12/06/21: Ultram for pain as she takes at home No other concerns 12/07/21: Monitor closely Ultram PT OT 12/08/21: PT/OT Dramatic improvement 12/09/2021: Fall risk Increase independence 12/10/2021: Increase nutrition 12/11/21: Monitor closely Increase portion of nutrition 12/12/2021: Monitor closely 12/13/2021: Increase nutrition Fall risk 12/14/2021: BOYD management (1) Cerebrovascular accident due to cerebral artery occlusion Status: Acute (2) Hypertension Status: Chronic (3) Osteoarthritis Status: Chronic (4) Insomnia Status: Chronic (5) Atrial fibrillation Status: Acute (6) Overactive bladder Status: Chronic (7) History of bowel resection Status: Chronic LUIS FELIPE COREAS DO Dec 14, 2021 06:20
[2021-12-14 06:30] LABS: HEMATOCRIT 38 % (35-52); MEAN CORPUSCULAR HEMOGLOBIN 27 pg (25-34); MEAN CORPUSCULAR HGB CONC 32 g/dL (32-36); MEAN CORPUSCULAR VOLUME 85 fL (80-99); MEAN PLATELET VOLUME 11.1 fL (9.0-12.2); PLATELET COUNT 281 10^3/uL (130-400); WHITE BLOOD COUNT 8.5 10^3/uL (4.3-11.0)
[2021-12-14 06:41] LABS: ALBUMIN 3.2 GM/DL (3.2-4.5); POTASSIUM 4.4 MMOL/L (3.6-5.0)
[2021-12-14 06:42] LABS: CALCIUM 9.7 MG/DL (8.5-10.1)
[2021-12-14 06:45] LABS: BILIRUBIN,TOTAL 0.4 MG/DL (0.1-1.0)
[2021-12-14 06:47] LABS: CREATININE SERUM 1.01 MG/DL (0.60-1.30)
[2021-12-14 07:33] VITALS: BP 174/86
[2021-12-14] MEDS: APIXABAN 2.5 MG (ELIQUIS) TABLET PO SCH ×2 (08:50→20:32)
[2021-12-14] MEDS: DOCUSATE SODIUM 100 MG (COLACE) CAP PO SCH ×2 (08:50→20:34)
[2021-12-14] MEDS: SENNOSIDES 8.6 MG (SENOKOT) TAB PO SCH ×2 (08:50→20:32)
[2021-12-14] MEDS: amLODIPine 2.5MG (NORVASC) TAB PO SCH (08:50)
[2021-12-14] MEDS: ASPIRIN 325 MG (5 GR) TABLET PO SCH (08:50)
[2021-12-14 09:31] VITALS: BP 127/60
--- NOTE | 2021-12-14 10:06 | Physical Therapy Daily Note ---
PT Daily Note-Current Subjective Pt sitting up in recliner upon arrival. Pt agrees to PT. Mental Status Patient Orientation: Person, Place, Situation Transfers SCALE: Activities may be completed with or without assistive devices. 4-Bgjspnkngf-fadjmvb completes the activity by him/herself with no assistance from a helper. 5-Set-up or Clean-up Assistance-helper sets up or cleans up; patient completes activity. [place] assists only prior to or following the activity. 4-Supervision or Touching Assistance-helper provides verbal cues and/or touching/steadying and/or contact guard assistance as patient completes activity. Assistance may be provided throughout the activity or intermittently. 3-Partial/Moderate Assistance-helper does LESS THAN HALF the effort. [place] lifts, holds or supports trunk or limbs, but provides less than half the effort. 2-Substantial/Maximal Assistance-helper does MORE THAN HALF the effort. [place] lifts or holds trunk or limbs and provides more than half the effort. 0-Xrpgxfhta-xkdxzv does ALL the effort. Patient does none of the effort to complete the activity. Or, the assistance of 2 or more helpers is required for the patient to complete the activity. If activity was not attempted, code reason: 7-Patient Refused. 9-Not Applicable-not attempted and the patient did not perform the activity before the current illness, exacerbation or injury. 10-Not Attempted due to Environmental Limitations-(lack of equipment, weather restraints, etc.). 88-Not Attempted due to Medical Conditions or Safety Concerns. Sit to Stand (QC): 4 Toilet Transfer (QC): 4 Weight Bearing Full Weight Bearing Full Weight Bearing Gait Training Does the Patient Walk?: Yes Distance: 125', 150' Walk 10 feet (QC): 4 Walk 50 ft with 2 Turns(QC): 4 Walk 150 ft (QC): 4 Gait Persons Needed: 1 Gait Assistive Device: FWW Pt walks w/knock knees and L hip severely shifted outwardly but this is not new for pt. Exercises Seated Therapy Exercises: Ankle pumps, Long arc quads, Hip flexion, Hip abd/add, Glut set Seated Reps: 15 NuStep Minutes: 10 NuStep Workload: 4 Treatments TF to standing and amb. to BR. Pt is able to complete pericare and pull up pants. Pt amb. in hallway (see Gait section) then short RB before using NuStep. Pt TF to chair and completes Seated Ex before amb. in hallway and back to room. Pt rests in recliner w/all needs met, call light in hand. PT Short Term Goals Short Term Goals Time Frame: Dec 07, 2021 Roll Left & Right: 3 (modA) Sit to lyin (moA) Lying to sitting on side of be: 3 (modA) Sit to stand: 3 (modA) Chair/mer-lt-fewkr transfer: 3 (modA) PT Printing Sales Representative Goals Assisted Goals PT Printing Sales Representative Goals Time Frame: Dec 21, 2021 Roll Left & Right (QC): 3 (Jonathan) Sit to Lying (QC): 3 (Jonathan) Lying-Sitting on Side/Bed(QC): 3 (Jonathan) Sit to Stand (QC): 3 (Jonathan) Chair/Jah-ik-Isruh Xfer(QC): 3 (Jonathan) Toilet Transfer (QC): 3 (Jonathan) Car Transfer (QC): 3 (Jonathan) Does the Patient Walk: No and Walking Goal IS indicated Walk 10 feet (QC): 3 (modA) Walk 50ft with 2 Turns (QC): 88 Walk 150 ft (QC): 88 Walking 10ft on Uneven Surface: 88 1 Step (curb) (QC): 88 4 Steps (QC): 88 12 Steps (QC): 88 Picking up an Object (QC): 88 Wheel 50 feet with 2 turns (QC: 4 (SBA) Wheel 150 feet: 4 (SBA) PT Plan Problem List Problem List: Activity Tolerance, Functional Strength, Gait Treatment/Plan Treatment Plan: Continue Plan of Care Treatment Plan: Bed Mobility, Education, Functional Activity Anitra, Functional Strength, Group Therapy, Gait, Safety, Therapeutic Exercise, Transfers Treatment Duration: Dec 21, 2021 Frequency: At least 5 of 7 days/Wk (IRF) Estimated Hrs Per Day: 1.5 hours per day Patient and/or Family Agrees t: Yes Safety Risks/Education Patient Education: Gait Training, Correct Positioning, Safety Issues Teaching Recipient: Patient Teaching Methods: Discussion Response to Teaching: Verbalize Understanding Time/GCodes Time In: 800 Time Out: 900 Total Billed Treatment Time: 60 Total Billed Treatment 1, FA (15m), GT (20m) & EX x2 (25m) SIENNA FERNANDEZ OCCUPATIONAL THERAPY ASSIST Dec 14, 2021 10:06
--- NOTE | 2021-12-14 10:56 | Speech Therapy Daily Note ---
Speech Daily Progress Note Subjective Date Seen by Provider: Dec 14, 2021 Time Seen by Provider: 09:00 The patient was seated in her recliner, awake and alert upon entrance to her room by the clinician. The patient greeted the clinician appropriately and was agreeable to participation in the cognitive linguistic treatment session. The patient's was present for the treatment session on this date. Objective - In anticipation of discharge in five days, the patient repeated the SLUMS assessment to evaluate for improvement and progression. The patient displayed a result of +24/30 on the SLUMS, displaying a mild neurocognitive improvement. Initially, the patient displayed a +16/30 on the SLUMS correlating to a score of "dementia." The patient continues to display mild memory and problem solving deficits, however, has improved in both areas significantly. Assessment Assessment Current Status: Fair Progress Treatment Plan Continue Plan of Care Speech Short Term Goals Short Term Goals Short Term Goals 1. The patient will demonstrated 80% accuracy on memory exercises with mild clinician verbal and visual cueing. Time Frame-STG: One Week. Speech Circular Knife Machine Cutter Goals Circular Knife Machine Cutter Goals 1. The patient will improve cognitive linguistic skills for a safe discharge to the least restricted environment. Time Frame: Two Weeks. Speech-Plan Treatment Plan Speech Therapy Treatment Plan: Continue Plan of Care Treatment Duration: Dec 14, 2021 Frequency: Modified Program (IRF) (Three to five times per week.) Estimated Hrs Per Day: .5 hour per day Rehab Potential: Fair Pt/Family Agrees to Plan: Yes Safety Risks/Education Teaching Recipient: Patient, Family Teaching Methods: Discussion Response to Teaching: Verbalize Understanding Education Topics Provided: SLUMS results, Progression of Goals Time Speech Therapy Time In: 09:00 Speech Therapy Time Out: 09:30 Total Billed Time: 30 Billed Treatment Time 1SRINIVASAN [address]IZ[address] ST Dec 14, 2021 10:56
--- NOTE | 2021-12-14 12:47 | Occupational Ther Daily Note ---
OT Current Status-Daily Note Subjective Pt alert, lying in bed. Pt agrees to therapy. No c/o pain. Mental Status/Objective Patient Orientation: Person, Place, Time, Situation ADL-Treatment Pt declines bathing, dressing and oral care. Supervision for safety to complete toilet transfer and toileting. After therapy, pt lying in bed with call light/phone in reach. All needs met. Safety measures in place. Therapy Code Descriptions/Definitions Functional [place] Measure: 0=Not Assessed/NA 4=Minimal Assistance 1=Total Assistance 5=Supervision or Setup 2=Maximal Assistance 6=Modified [place] 3=Moderate Assistance 7=Complete IndependenceSCALE: Activities may be completed with or without assistive devices. 7-Fvovwesrsg-fyigbzf completes the activity by him/herself with no assistance from a helper. 5-Set-up or Clean-up Assistance-helper sets up or cleans up; patient completes activity. [place] assists only prior to or following the activity. 4-Supervision or Touching Assistance-helper provides verbal cues and/or touching/steadying and/or contact guard assistance as patient completes activity. Assistance may be provided throughout the activity or intermittently. 3-Partial/Moderate Assistance-helper does LESS THAN HALF the effort. [place] lifts, holds or supports trunk or limbs, but provides less than half the effort. 2-Substantial/Maximal Assistance-helper does MORE THAN HALF the effort. [place] lifts or holds trunk or limbs and provides more than half the effort. 4-Eofsywmlb-lrthfo does ALL the effort. Patient does none of the effort to complete the activity. Or, the assistance of 2 or more helpers is required for the patient to complete the activity. If activity was not attempted, code reason: 7-Patient Refused. 9-Not Applicable-not attempted and the patient did not perform the activity before the current illness, exacerbation or injury. 10-Not Attempted due to Environmental Limitations-(lack of equipment, weather restraints, etc.). 88-Not Attempted due to Medical Conditions or Safety Concerns. Toileting Hygiene (QC): 4 Toilet Transfer (QC): 4 Other Treatment Pt complete B UE exercises to increase strength and coordination for gross and fine motor skills. 5 min pulleys with 1# wt on wrists. Using B UE to take off/on resistive clothes pins, 2x's. Medium resistance theraputty to find small beads, 18 beads. Pipe tree using B UE, required mod cueing. Lacing large beads with B hands using hard tubing to string with. Pt took increased time to complete. L hand coordination and strength is improving. OT Short Term Goals Short Term Goals Time Frame: Dec 14, 2021 Eatin Oral hygiene: 4 Toileting hygiene: 2 Shower/bathe self: 2 Upper body dressin Lower body dressin Putting on/taking off footwear: 2 OT Alf Goals Pulley Man Goals Time Frame: Dec 28, 2021 Eating (QC): 5 Oral Hygiene (QC): 6 Toileting Hygiene (QC): 4 Shower/Bathe Self (QC): 4 Upper Body Dressing (QC): 4 Lower Body Dressing (QC): 4 On/Off Footwear (QC): 4 1=Demonstrate adherence to instructed precautions during ADL tasks. 2=Patient will verbalize/demonstrate understanding of assistive devices/modifications for ADL. 3=Patient will improve strength/tolerance for activity to enable patient to perform ADL's. OT Education/Plan Problem List/Assessment Assessment: Decreased Activ Tolerance, Decreased UE Strength, Impaired Coordination, Impaired Self-Care Skills, Restricted Funct UE ROM Discharge Recommendations Plan/Recommendations: Continue POC Treatment Plan/Plan of Care Patient would benefit from OT for education, treatment and training to promote independence in ADL's, mobility, safety and/or upper extremity function for ADL's. Plan of Care: ADL Retraining, Caregiver Training, Cognitive Retraining, Functional Mobility, Group Exercise/Act as Ind, UE Funct Exercise/Act, UE Neuromus Re-Ed/Coord, Visual/Perceptual Retrain, W/C Management Training Treatment Duration: Dec 28, 2021 Frequency: Modified Program (IRF) Estimated Hrs Per Day: 1 hour per day (75-90 min/day) Agreement: Yes Rehab Potential: Fair Time/GCodes Start Time: 10:45 Stop Time: 12:00 Total Time Billed (hr/min): 75 Billed Treatment Time 1 visit-ADL 1 (20 min) EX 4 (55 min) ROHIT BENTLEY Dec 14, 2021 12:47
--- NOTE | 2021-12-14 13:07 | Physical Therapy Daily Note ---
PT Daily Note-Current Subjective Pt laying Supine in bed upon arrival. Pt agrees to PT. Pain Location: No Pain Reported Mental Status Patient Orientation: Person, Place, Situation Transfers SCALE: Activities may be completed with or without assistive devices. 2-Zminsuhvrv-huxbnce completes the activity by him/herself with no assistance from a helper. 5-Set-up or Clean-up Assistance-helper sets up or cleans up; patient completes activity. [place] assists only prior to or following the activity. 4-Supervision or Touching Assistance-helper provides verbal cues and/or touching/steadying and/or contact guard assistance as patient completes activity. Assistance may be provided throughout the activity or intermittently. 3-Partial/Moderate Assistance-helper does LESS THAN HALF the effort. [place] lifts, holds or supports trunk or limbs, but provides less than half the effort. 2-Substantial/Maximal Assistance-helper does MORE THAN HALF the effort. [place] lifts or holds trunk or limbs and provides more than half the effort. 0-Rykofezmf-aagsbv does ALL the effort. Patient does none of the effort to complete the activity. Or, the assistance of 2 or more helpers is required for the patient to complete the activity. If activity was not attempted, code reason: 7-Patient Refused. 9-Not Applicable-not attempted and the patient did not perform the activity before the current illness, exacerbation or injury. 10-Not Attempted due to Environmental Limitations-(lack of equipment, weather restraints, etc.). 88-Not Attempted due to Medical Conditions or Safety Concerns. Weight Bearing Full Weight Bearing Full Weight Bearing Exercises Supine Ex: Ankle pumps, Quad Set, Glut sets, Heel Slides, Straight leg raise, Hip abd/add (15) Supine Reps: 15 Treatments Pt declines need for BR. Pt completes Supine Ex then settles in for rest after tx. All needs met, call light next to pt. Assessment Current Status: Good Progress Pt reports head/neck from morning was improved but very tired and wants to rest. PT Short Term Goals Short Term Goals Time Frame: Dec 07, 2021 Roll Left & Right: 3 (modA) Sit to lyin (moA) Lying to sitting on side of be: 3 (modA) Sit to stand: 3 (modA) Chair/ajn-kz-plltz transfer: 3 (modA) PT Nurse Office Goals Nurse Office Goals PT Senior Care Goals Time Frame: Dec 21, 2021 Roll Left & Right (QC): 3 (Jonathan) Sit to Lying (QC): 3 (Jonathan) Lying-Sitting on Side/Bed(QC): 3 (Jonathan) Sit to Stand (QC): 3 (Jonathan) Chair/Rcs-cw-Mbalz Xfer(QC): 3 (Jonathan) Toilet Transfer (QC): 3 (Jonathan) Car Transfer (QC): 3 (Jonathan) Does the Patient Walk: No and Walking Goal IS indicated Walk 10 feet (QC): 3 (modA) Walk 50ft with 2 Turns (QC): 88 Walk 150 ft (QC): 88 Walking 10ft on Uneven Surface: 88 1 Step (curb) (QC): 88 4 Steps (QC): 88 12 Steps (QC): 88 Picking up an Object (QC): 88 Wheel 50 feet with 2 turns (QC: 4 (SBA) Wheel 150 feet: 4 (SBA) PT Plan Treatment/Plan Treatment Plan: Continue Plan of Care Treatment Plan: Bed Mobility, Education, Functional Activity Anitra, Functional Strength, Group Therapy, Gait, Safety, Therapeutic Exercise, Transfers Treatment Duration: Dec 21, 2021 Frequency: At least 5 of 7 days/Wk (IRF) Estimated Hrs Per Day: 1.5 hours per day Patient and/or Family Agrees t: Yes Time/GCodes Time In: 1300 Time Out: 1315 Total Billed Treatment Time: 15 Total Billed Treatment 1, EX (15m) SIENNA FERNANDEZ EDUCATION COUNSELOR Dec 14, 2021 13:07
[2021-12-14] MEDS: ACETAMINOPHEN 325 MG TABLET PO PRN (14:35)
[2021-12-14 20:24] VITALS: BP 129/73
[2021-12-14] MEDS: ZOLPIDEM 5 MG (AMBIEN) TAB PO SCH (20:32)
--- NOTE | 2021-12-15 06:08 | PM&R Progress Note ---
Subjective HPI/CC On Admission Date Seen by Provider: Dec 15, 2021 Time Seen by Provider: 10:00 Subjective/Events-last exam 12/15/2021: Patient doing well Complains of headache at times and I explained that could be long-term or it could dissipate slowly No other issues Checked meds and labs 12/14/2021: Patient doing really well Always has plenty of questions Bowels moved today Headache likely is due to the stroke Aspercreme and Ultram will be given 12/13/2021: No major issues Feels like she is doing much better Check meds and labs 12/12/2021: Patient doing well and granddaughter at the bedside No pain is reported Ultram used for shoulder pain Checked meds and labs 12/11/2021: No major issues Counseled her in-depth about CVA and AF and details No pain reported Ultram effective as it is at home Daughter still wants her to try Namenda and I have told her not until she is recovered from CVA 12/10/2021: Patient doing well No pain Ultram taken on regular basis as baseline No falls Lost 6 # since last seen in my office 12/09/2021: Patient doing well No pain reported Dramatically improved No falls 12/08/21: Pt is doing pretty well Had a headache, received Ultram Loose stools No other concerns 12/07/21: Patient doing well Daughter and son at the bedside and we talked about the need to stay as long as possible to gain strength Memory loss discussed and will allow CVA recovery until we entertain that No pain 12/06/21: Patient doing well No pain is reported Left side is moving really well Asked again why she cannot go home 12/05/2021: Patient had a really good mood Wants to go home and asking again over and over the same question so her cognition has variability No falls Moving left side really well 12/04/2021: Pt doing well Lucid thought process now Ultram for shoulder pain Bowels moved a couple of days ago will give her stool softeners 12/03/21: Pt is doing pretty well Incontinence noted Dementia issues are apparent Daughter wants to know if she can be started on dementia medication and an appetite stimulant, but she is just really not stable enough neurologically to start meds. Appetite stimulant is not indicated at this time. 12/02/21: Pt is doing really well Discontinued spencer catheter, she is incontinent Post void residual is minimal Will increase PO fluids Discontinue telemetry Deandrevyn will be placed on her bottom due to high risk for stage 1 Incontinent of stool last night so will monitor that closely 12/01/21: Pt had her spencer taken out Incontinent of urine Labs look okay Discontinue telemetry because it is afib Participating with all therapies Review of Systems General: Fatigue, Malaise Neurological: Weakness, Confusion Objective Exam Vital Signs Vital Signs Date Time Temp Pulse Resp B/P (MAP) Pulse Ox O2 Delivery O2 Flow Rate FiO2 12/15/21 21:02 Room Air 12/15/21 19:51 36.7 79 18 139/65 (89) 97 Capillary Refill : General Appearance: No Apparent Distress, WD/WN, Chronically ill, Obese HEENT: PERRL/EOMI, Normal ENT Inspection, Pharynx Normal Neck: Full Range of Motion, Normal Inspection, Non Tender, Supple, Carotid Bruit Respiratory: Chest Non Tender, Lungs Clear, Normal Breath Sounds, No Accessory Muscle Use, No Respiratory Distress Cardiovascular: Regular Rate, Rhythm, No Edema, No Gallop, No JVD, No Murmur, Normal Peripheral Pulses Gastrointestinal: Normal Bowel Sounds, No Organomegaly, No Pulsatile Mass, Non Tender, Soft Back: Normal Inspection, No CVA Tenderness, No Vertebral Tenderness Extremity: Normal Capillary Refill, Normal Inspection, Normal Range of Motion, Non Tender, No Calf Tenderness, No Pedal Edema Neurologic/Psychiatric: Alert, Oriented x3, Normal Mood/Affect, job coach II-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 FIM Transfers Therapy Code Descriptions/Definitions Functional [place] Measure: 0=Not Assessed/NA 4=Minimal Assistance 1=Total Assistance 5=Supervision or Setup 2=Maximal Assistance 6=Modified [place] 3=Moderate Assistance 7=Complete IndependenceSCALE: Activities may be completed with or without assistive devices. 8-Dbawhzczai-mhwenyz completes the activity by him/herself with no assistance from a helper. 5-Set-up or Clean-up Assistance-helper sets up or cleans up; patient completes activity. [place] assists only prior to or following the activity. 4-Supervision or Touching Assistance-helper provides verbal cues and/or touching/steadying and/or contact guard assistance as patient completes activity. Assistance may be provided throughout the activity or intermittently. 3-Partial/Moderate Assistance-helper does LESS THAN HALF the effort. [place] lifts, holds or supports trunk or limbs, but provides less than half the effort. 2-Substantial/Maximal Assistance-helper does MORE THAN HALF the effort. [place] lifts or holds trunk or limbs and provides more than half the effort. 4-Rwbhmjcjk-yzgvjk does ALL the effort. Patient does none of the effort to complete the activity. Or, the assistance of 2 or more helpers is required for the patient to complete the activity. If activity was not attempted, code reason: 7-Patient Refused. 9-Not Applicable-not attempted and the patient did not perform the activity before the current illness, exacerbation or injury. 10-Not Attempted due to Environmental Limitations-(lack of equipment, weather restraints, etc.). 88-Not Attempted due to Medical Conditions or Safety Concerns. Roll Left to Right (QC): 6 Sit to Lying (QC): 6 Sit to Stand (QC): 4 Chair/Xrb-pd-Ezufd Xfer(QC): 4 Car Transfer (QC): 6 Gait Training Does the Patient Walk?: Yes Distance: 125', 150' Walk 10 feet (QC): 4 Walk 50 ft with 2 Turns(QC): 4 Walk 150 ft (QC): 4 Walking 10ft/uneven surface-QC: 88 Gait Persons Needed: 1 Gait Assistive Device: FWW Wheelchair Training Does the Pt Use a Wheelchair?: Yes Distance: 50'x2 Wheel 50 ft with 2 turns (QC): 4 Wheel 150 ft (QC): 3 Type of Wheelchair: Manual Stair Training 1 Step (curb) (QC): 88 4 Steps (QC): 88 12 Steps (QC): 88 Balance Picking up an Object (QC): 88 ADL-Treatment Eating (QC): 6 Oral Hygiene (QC): 6 Bathing Location: L Arm, R Arm, L Upper Leg, R Upper Leg, L Lower Leg (including foot), R Lower Leg (including foot), Chest, Abdomen, Buttocks, Perineal Area Shower/Bathe Self (QC): 4 Upper Body Dressing (QC): 5 Lower Body Dressing (QC): 4 On/Off Footwear (QC): 5 Toileting Hygiene (QC): 4 Toilet Transfer (QC): 4 Assessment/Plan Assessment and Plan Assess & Plan/Chief Complaint Assessment: CVA subacute not a tPa candidate New atrial fibrillation placed on oral anticoagulation and consult cardiology 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 Confusion now resolved Expressive aphasia much improved HTN HLP Chronic pain Osteoarthritis Cognitive decline with paranoia noted as outpatient in past 1 year Weight loss 6# since last seen in my clinic currently 124# Plan: Oral anticoagulation Aggressive rehab Supportive care Fall risk 12/01/21: Supportive care Monitor BP 12/02/21: Monitor BP Incontinence care 12/03/21: Monitor BP 12/04/21: Improved status Monitor closely 12/05/2021: Supportive care Fall risk 12/06/21: Ultram for pain as she takes at home No other concerns 12/07/21: Monitor closely Ultram PT OT 12/08/21: PT/OT Dramatic improvement 12/09/2021: Fall risk Increase independence 12/10/2021: Increase nutrition 12/11/21: Monitor closely Increase portion of nutrition 12/12/2021: Monitor closely 12/13/2021: Increase nutrition Fall risk 12/14/2021: BOYD management 12/15/2021: BOYD management (1) Cerebrovascular accident due to cerebral artery occlusion Status: Acute (2) Hypertension Status: Chronic (3) Osteoarthritis Status: Chronic (4) Insomnia Status: Chronic (5) Atrial fibrillation Status: Acute (6) Overactive bladder Status: Chronic (7) History of bowel resection Status: Chronic LUIS FELIPE COREAS DO Dec 15, 2021 06:08
[2021-12-15 07:31] VITALS: BP 130/64
[2021-12-15] MEDS: ASPIRIN 325 MG (5 GR) TABLET PO SCH (08:33)
[2021-12-15] MEDS: ACETAMINOPHEN 325 MG TABLET PO PRN (08:33)
[2021-12-15] MEDS: APIXABAN 2.5 MG (ELIQUIS) TABLET PO SCH ×2 (08:33→20:53)
--- NOTE | 2021-12-15 08:56 | Speech Therapy Daily Note ---
Speech Daily Progress Note Subjective Date Seen by Provider: Dec 15, 2021 Time Seen by Provider: 08:30 The patient was seated upright in a recliner, awake and alert upon entrance to her room by the clinician. The patient greeted the clinician appropriately and was agreeable to participation in the cognitive linguistic treatment session. Objective - Orientation: The patient remains 100% oriented to self, location, month, day of week, date, and year. - Word List Retention: The patient was provided three or four words and was asked a question following the four words for inclusion or exclusion. The patient displayed 100% accuracy with three word lists and 60% accuracy with mild clinician cueing with four word lists. Assessment Assessment Current Status: Fair Progress Treatment Plan Continue Plan of Care Speech Short Term Goals Short Term Goals Short Term Goals 1. The patient will demonstrated 80% accuracy on memory exercises with mild clinician verbal and visual cueing. Time Frame-STG: One Week. Speech Nursing Home Goals Nursing Home Goals 1. The patient will improve cognitive linguistic skills for a safe discharge to the least restricted environment. Time Frame: Two Weeks. Speech-Plan Treatment Plan Speech Therapy Treatment Plan: Continue Plan of Care Treatment Duration: Dec 14, 2021 Frequency: Modified Program (IRF) (Three to five times per week.) Estimated Hrs Per Day: .5 hour per day Rehab Potential: Fair Pt/Family Agrees to Plan: Yes Safety Risks/Education Teaching Recipient: Patient Teaching Methods: Demonstration, Discussion Response to Teaching: Reinforcement Needed Education Topics Provided: Internal Memory Strategies Time Speech Therapy Time In: 08:30 Speech Therapy Time Out: 09:00 Total Billed Time: 30 Billed Treatment Time 1SRINIVASAN ELIZABETH ST Dec 15, 2021 08:56
[2021-12-15] MEDS: SENNOSIDES 8.6 MG (SENOKOT) TAB PO SCH ×2 (09:00→21:01)
[2021-12-15] MEDS: amLODIPine 2.5MG (NORVASC) TAB PO SCH (09:00)
[2021-12-15] MEDS: DOCUSATE SODIUM 100 MG (COLACE) CAP PO SCH ×2 (09:00→21:01)
--- NOTE | 2021-12-15 10:22 | Occupational Ther Daily Note ---
OT Current Status-Daily Note Subjective Pt alert, sitting in recliner. Pt agrees to therapy. No c/o pain. Mental Status/Objective Patient Orientation: Person, Place, Time, Situation ADL-Treatment Pt declines shower today. Declines changing clothing. Pt agrees to complete grooming sitting at sink. Pt ambulates using FWW to bathroom with CGA and verbal cues to stay inside FWW and to bring L foot forward. Pt sat at sink to complete oral care independently. SBA to transfer using grabbars to toilet. SBA and grabbars to complete clothing manipulation and completed hygiene sitting on toilet. Pt able to thread lower body clothing over feet by self after set up then SBA in standing to hike pants over hips. Pt donned shoes by self after set up. Therapy Code Descriptions/Definitions Functional [place] Measure: 0=Not Assessed/NA 4=Minimal Assistance 1=Total Assistance 5=Supervision or Setup 2=Maximal Assistance 6=Modified [place] 3=Moderate Assistance 7=Complete IndependenceSCALE: Activities may be completed with or without assistive devices. 7-Wnsewdpvap-stigtov completes the activity by him/herself with no assistance from a helper. 5-Set-up or Clean-up Assistance-helper sets up or cleans up; patient completes activity. [place] assists only prior to or following the activity. 4-Supervision or Touching Assistance-helper provides verbal cues and/or touching/steadying and/or contact guard assistance as patient completes activity. Assistance may be provided throughout the activity or intermittently. 3-Partial/Moderate Assistance-helper does LESS THAN HALF the effort. [place] lifts, holds or supports trunk or limbs, but provides less than half the effort. 2-Substantial/Maximal Assistance-helper does MORE THAN HALF the effort. [place] lifts or holds trunk or limbs and provides more than half the effort. 3-Gegvhrosf-srifpg does ALL the effort. Patient does none of the effort to complete the activity. Or, the assistance of 2 or more helpers is required for the patient to complete the activity. If activity was not attempted, code reason: 7-Patient Refused. 9-Not Applicable-not attempted and the patient did not perform the activity before the current illness, exacerbation or injury. 10-Not Attempted due to Environmental Limitations-(lack of equipment, weather restraints, etc.). 88-Not Attempted due to Medical Conditions or Safety Concerns. Oral Hygiene (QC): 6 Lower Body Dressing (QC): 4 On/Off Footwear: 5 Toileting Hygiene (QC): 4 Toilet Transfer (QC): 4 Other Treatment Pt able to propel w/c independently today due to pt wearing shoes and able to use feet more effectively. Pt completed dowel john exercises for 2 min 4x's, stretching B UE's with dowel john supported, lifting dowel john over designated areas with 3# wt attached, 2 batting balloon while holding onto dowel john with B UE's. Pt is progressing with maintaining L splitter head for longer though does not regrasp before L hand comes off. Pt then completed nut/bolt activity with modifications due to L UE not maintaining pinch and shldr flex against gravity for more than 30 seconds each time. OT/PT co-treat ([id number]), skills of 2 clinicians required to decrease fall risk and increase functional mobility. Pt focusing on w/c mobility while OT focusing on B UE placement and strength while completing w/c mobility. After session, pt left in care of PT. All needs met. OT Short Term Goals Short Term Goals Time Frame: Dec 14, 2021 Eatin Oral hygiene: 4 Toileting hygiene: 2 Shower/bathe self: 2 Upper body dressin Lower body dressin Putting on/taking off footwear: 2 OT Detention Goals Medicine Worker Goals Time Frame: Dec 28, 2021 Eating (QC): 5 Oral Hygiene (QC): 6 Toileting Hygiene (QC): 4 Shower/Bathe Self (QC): 4 Upper Body Dressing (QC): 4 Lower Body Dressing (QC): 4 On/Off Footwear (QC): 4 1=Demonstrate adherence to instructed precautions during ADL tasks. 2=Patient will verbalize/demonstrate understanding of assistive devices/modifications for ADL. 3=Patient will improve strength/tolerance for activity to enable patient to perform ADL's. OT Education/Plan Problem List/Assessment Assessment: Decreased Activ Tolerance, Decreased UE Strength, Impaired Cognition, Impaired Coordination, Impaired Self-Care Skills, Restricted Funct UE ROM Discharge Recommendations Plan/Recommendations: Continue POC Treatment Plan/Plan of Care Patient would benefit from OT for education, treatment and training to promote independence in ADL's, mobility, safety and/or upper extremity function for ADL's. Plan of Care: ADL Retraining, Caregiver Training, Cognitive Retraining, Functional Mobility, Group Exercise/Act as Ind, UE Funct Exercise/Act, UE Neuromus Re-Ed/Coord, Visual/Perceptual Retrain, W/C Management Training Treatment Duration: Dec 28, 2021 Frequency: Modified Program (IRF) Estimated Hrs Per Day: 1 hour per day (75-90 min/day) Agreement: Yes Rehab Potential: Fair Time/GCodes Start Time: 09:00 Stop Time: 10:15 Total Time Billed (hr/min): 75 Billed Treatment Time 1 visit-ADL 2 (30 min) NM 2 (30 min) FA 1 (15 min) ROHIT BENTLEY Dec 15, 2021 10:22
--- NOTE | 2021-12-15 12:08 | Physical Therapy Daily Note ---
PT Daily Note-Current Subjective Pt sitting in Therapy Gym working w/OT upon arrival. Pt agrees to PT/OT short co-treat then tx w/just PT. Pain Location: No Pain Reported Mental Status Patient Orientation: Person, Place Transfers SCALE: Activities may be completed with or without assistive devices. 6-Pqyyshrlye-txgsmnz completes the activity by him/herself with no assistance from a helper. 5-Set-up or Clean-up Assistance-helper sets up or cleans up; patient completes activity. [place] assists only prior to or following the activity. 4-Supervision or Touching Assistance-helper provides verbal cues and/or to uching/steadying and/or contact guard assistance as patient completes activity. Assistance may be provided throughout the activity or intermittently. 3-Partial/Moderate Assistance-helper does LESS THAN HALF the effort. [place] lifts, holds or supports trunk or limbs, but provides less than half the effort. 2-Substantial/Maximal Assistance-helper does MORE THAN HALF the effort. [place] lifts or holds trunk or limbs and provides more than half the effort. 3-Dgftebkww-pcuaxf does ALL the effort. Patient does none of the effort to complete the activity. Or, the assistance of 2 or more helpers is required for the patient to complete the activity. If activity was not attempted, code reason: 7-Patient Refused. 9-Not Applicable-not attempted and the patient did not perform the activity before the current illness, exacerbation or injury. 10-Not Attempted due to Environmental Limitations-(lack of equipment, weather restraints, etc.). 88-Not Attempted due to Medical Conditions or Safety Concerns. Sit to Stand (QC): 4 Weight Bearing Full Weight Bearing Full Weight Bearing Gait Training Does the Patient Walk?: Yes Distance: 50' Walk 10 feet (QC): 4 Walk 50 ft with 2 Turns(QC): 4 Gait Persons Needed: 1 Gait Assistive Device: FWW Wheelchair Training Does the Pt Use a Wheelchair?: Yes Wheel 50 ft with 2 turns (QC): 4 Wheel 150 ft (QC): 4 Type of Wheelchair: Manual Exercises Seated Therapy Exercises: Ankle pumps, Long arc quads, Hip flexion, Hip abd/ad d, Glut set Seated Reps: 20 NuStep Minutes: 10 NuStep Workload: 4 Treatments OT/PT co-treat ([id number]), skills of 2 clinicians required to decrease fall risk and increase functional mobility. Pt focusing on w/c mobility while OT focusing on B UE placement and strength while completing w/c mobility. OT departs at this time. Pt completes Seated EX & NuStep before short RB. Pt amb. short distance as well as uses BR before TF to recliner at end of tx. All needs met, call light in hand. Assessment Current Status: Fair Progress Pt continues to demonstrate a lack of social awareness and unrealistic expectations such as not needing a WCH but only using a FWW. PT Short Term Goals Short Term Goals Time Frame: Dec 07, 2021 Roll Left & Right: 3 (modA) Sit to lyin (moA) Lying to sitting on side of be: 3 (modA) Sit to stand: 3 (modA) Chair/evg-tx-crxqf transfer: 3 (modA) PT Roller Repairer Goals Retirement Goals PT Retirement Goals Time Frame: Dec 21, 2021 Roll Left & Right (QC): 3 (Jonathan) Sit to Lying (QC): 3 (Jonathan) Lying-Sitting on Side/Bed(QC): 3 (Jonathan) Sit to Stand (QC): 3 (Jonathan) Chair/Sjw-cc-Zpbdu Xfer(QC): 3 (Jonathan) Toilet Transfer (QC): 3 (Jonathan) Car Transfer (QC): 3 (Jonathan) Does the Patient Walk: No and Walking Goal IS indicated Walk 10 feet (QC): 3 (modA) Walk 50ft with 2 Turns (QC): 88 Walk 150 ft (QC): 88 Walking 10ft on Uneven Surface: 88 1 Step (curb) (QC): 88 4 Steps (QC): 88 12 Steps (QC): 88 Picking up an Object (QC): 88 Wheel 50 feet with 2 turns (QC: 4 (SBA) Wheel 150 feet: 4 (SBA) PT Plan Problem List Problem List: Activity Tolerance, Functional Strength, Gait Treatment/Plan Treatment Plan: Continue Plan of Care Treatment Plan: Bed Mobility, Education, Functional Activity Anitra, Functional Strength, Group Therapy, Gait, Safety, Therapeutic Exercise, Transfers Treatment Duration: Dec 21, 2021 Frequency: At least 5 of 7 days/Wk (IRF) Estimated Hrs Per Day: 1.5 hours per day Patient and/or Family Agrees t: Yes Safety Risks/Education Patient Education: Gait Training, Transfer Techniques, Correct Positioning, Safety Issues Teaching Recipient: Patient Teaching Methods: Discussion Response to Teaching: Verbalize Understanding Time/GCodes Time In: 1000 Time Out: 1115 Total Billed Treatment Time: 75 Total Billed Treatment 1, FA (15m), GT x2 (30m) & EX x2 (30m) SIENNA FERNANDEZ TRANSITION SOCIAL WORKER Dec 15, 2021 12:08
[2021-12-15 19:51] VITALS: BP 139/65
[2021-12-15] MEDS: ZOLPIDEM 5 MG (AMBIEN) TAB PO SCH (20:53)
--- NOTE | 2021-12-16 06:12 | PM&R Progress Note ---
Subjective HPI/CC On Admission Date Seen by Provider: Dec 16, 2021 Time Seen by Provider: 10:00 Subjective/Events-last exam 12/16/2021: Pt is doing well Has many questions as usual, all answered No falls 12/15/2021: Patient doing well Complains of headache at times and I explained that could be long-term or it could dissipate slowly No other issues Checked meds and labs 12/14/2021: Patient doing really well Always has plenty of questions Bowels moved today Headache likely is due to the stroke Aspercreme and Ultram will be given 12/13/2021: No major issues Feels like she is doing much better Check meds and labs 12/12/2021: Patient doing well and granddaughter at the bedside No pain is reported Ultram used for shoulder pain Checked meds and labs 12/11/2021: No major issues Counseled her in-depth about CVA and AF and details No pain reported Ultram effective as it is at home Daughter still wants her to try Namenda and I have told her not until she is recovered from CVA 12/10/2021: Patient doing well No pain Ultram taken on regular basis as baseline No falls Lost 6 # since last seen in my office 12/09/2021: Patient doing well No pain reported Dramatically improved No falls 12/08/21: Pt is doing pretty well Had a headache, received Ultram Loose stools No other concerns 12/07/21: Patient doing well Daughter and son at the bedside and we talked about the need to stay as long as possible to gain strength Memory loss discussed and will allow CVA recovery until we entertain that No pain 12/06/21: Patient doing well No pain is reported Left side is moving really well Asked again why she cannot go home 12/05/2021: Patient had a really good mood Wants to go home and asking again over and over the same question so her cognition has variability No falls Moving left side really well 12/04/2021: Pt doing well Lucid thought process now Ultram for shoulder pain Bowels moved a couple of days ago will give her stool softeners 12/03/21: Pt is doing pretty well Incontinence noted Dementia issues are apparent Daughter wants to know if she can be started on dementia medication and an appetite stimulant, but she is just really not stable enough neurologically to start meds. Appetite stimulant is not indicated at this time. 12/02/21: Pt is doing really well Discontinued spencer catheter, she is incontinent Post void residual is minimal Will increase PO fluids Discontinue telemetry Deandrevyn will be placed on her bottom due to high risk for stage 1 Incontinent of stool last night so will monitor that closely 12/01/21: Pt had her spencer taken out Incontinent of urine Labs look okay Discontinue telemetry because it is afib Participating with all therapies Review of Systems General: Fatigue, Malaise Objective Exam Vital Signs Vital Signs Date Time Temp Pulse Resp B/P (MAP) Pulse Ox O2 Delivery O2 Flow Rate FiO2 12/16/21 19:53 36.8 83 16 137/62 (87) 98 Room Air Capillary Refill : General Appearance: No Apparent Distress, WD/WN, Chronically ill, Obese HEENT: PERRL/EOMI, Normal ENT Inspection, Pharynx Normal Neck: Full Range of Motion, Normal Inspection, Non Tender, Supple, Carotid Bruit Respiratory: Chest Non Tender, Lungs Clear, Normal Breath Sounds, No Accessory Muscle Use, No Respiratory Distress Cardiovascular: Regular Rate, Rhythm, No Edema, No Gallop, No JVD, No Murmur, Normal Peripheral Pulses Gastrointestinal: Normal Bowel Sounds, No Organomegaly, No Pulsatile Mass, Non Tender, Soft Back: Normal Inspection, No CVA Tenderness, No Vertebral Tenderness Extremity: Normal Capillary Refill, Normal Inspection, Normal Range of Motion, Non Tender, No Calf Tenderness, No Pedal Edema Neurologic/Psychiatric: Alert, Oriented x3, Normal Mood/Affect, bail bondsman II-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 FIM Transfers Therapy Code Descriptions/Definitions Functional [place] Measure: 0=Not Assessed/NA 4=Minimal Assistance 1=Total Assistance 5=Supervision or Setup 2=Maximal Assistance 6=Modified [place] 3=Moderate Assistance 7=Complete IndependenceSCALE: Activities may be completed with or without assistive devices. 7-Ezqpcetuxv-uswjfem completes the activity by him/herself with no assistance from a helper. 5-Set-up or Clean-up Assistance-helper sets up or cleans up; patient completes activity. [place] assists only prior to or following the activity. 4-Supervision or Touching Assistance-helper provides verbal cues and/or touching/steadying and/or contact guard assistance as patient completes activity. Assistance may be provided throughout the activity or intermittently. 3-Partial/Moderate Assistance-helper does LESS THAN HALF the effort. [place] lifts, holds or supports trunk or limbs, but provides less than half the effort. 2-Substantial/Maximal Assistance-helper does MORE THAN HALF the effort. [place] lifts or holds trunk or limbs and provides more than half the effort. 6-Xrfueskxk-fscvkn does ALL the effort. Patient does none of the effort to complete the activity. Or, the assistance of 2 or more helpers is required for the patient to complete the activity. If activity was not attempted, code reason: 7-Patient Refused. 9-Not Applicable-not attempted and the patient did not perform the activity before the current illness, exacerbation or injury. 10-Not Attempted due to Environmental Limitations-(lack of equipment, weather restraints, etc.). 88-Not Attempted due to Medical Conditions or Safety Concerns. Roll Left to Right (QC): 6 Sit to Lying (QC): 6 Sit to Stand (QC): 4 Chair/Pbj-uf-Fijzm Xfer(QC): 4 Car Transfer (QC): 6 Gait Training Does the Patient Walk?: Yes Distance: 50' Walk 10 feet (QC): 4 Walk 50 ft with 2 Turns(QC): 4 Walk 150 ft (QC): 4 Walking 10ft/uneven surface-QC: 88 Gait Persons Needed: 1 Gait Assistive Device: FWW Wheelchair Training Does the Pt Use a Wheelchair?: Yes Distance: 50'x2 Wheel 50 ft with 2 turns (QC): 4 Wheel 150 ft (QC): 4 Type of Wheelchair: Manual Stair Training 1 Step (curb) (QC): 88 4 Steps (QC): 88 12 Steps (QC): 88 Balance Picking up an Object (QC): 88 ADL-Treatment Eating (QC): 6 Oral Hygiene (QC): 6 Bathing Location: L Arm, R Arm, L Upper Leg, R Upper Leg, L Lower Leg (including foot), R Lower Leg (including foot), Chest, Abdomen, Buttocks, Perineal Area Shower/Bathe Self (QC): 4 Upper Body Dressing (QC): 5 Lower Body Dressing (QC): 4 On/Off Footwear (QC): 5 Toileting Hygiene (QC): 4 Toilet Transfer (QC): 4 Assessment/Plan Assessment and Plan Assess & Plan/Chief Complaint Assessment: CVA subacute not a tPa candidate New atrial fibrillation placed on oral anticoagulation and consult cardiology 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 Confusion now resolved Expressive aphasia much improved HTN HLP Chronic pain Osteoarthritis Cognitive decline with paranoia noted as outpatient in past 1 year Weight loss 6# since last seen in my clinic currently 124# Plan: Oral anticoagulation Aggressive rehab Supportive care Fall risk 12/01/21: Supportive care Monitor BP 12/02/21: Monitor BP Incontinence care 12/03/21: Monitor BP 12/04/21: Improved status Monitor closely 12/05/2021: Supportive care Fall risk 12/06/21: Ultram for pain as she takes at home No other concerns 12/07/21: Monitor closely Ultram PT OT 12/08/21: PT/OT Dramatic improvement 12/09/2021: Fall risk Increase independence 12/10/2021: Increase nutrition 12/11/21: Monitor closely Increase portion of nutrition 12/12/2021: Monitor closely 12/13/2021: Increase nutrition Fall risk 12/14/2021: BOYD management 12/15/2021: BOYD management 12/16/2021: Continued progress (1) Cerebrovascular accident due to cerebral artery occlusion Status: Acute (2) Hypertension Status: Chronic (3) Osteoarthritis Status: Chronic (4) Insomnia Status: Chronic (5) Atrial fibrillation Status: Acute (6) Overactive bladder Status: Chronic (7) History of bowel resection Status: Chronic LUIS FELIPE COREAS DO Dec 16, 2021 06:12
[2021-12-16 07:36] VITALS: BP 159/72
[2021-12-16] MEDS: APIXABAN 2.5 MG (ELIQUIS) TABLET PO SCH ×2 (07:48→20:57)
[2021-12-16] MEDS: ASPIRIN 325 MG (5 GR) TABLET PO SCH (07:48)
[2021-12-16] MEDS: DOCUSATE SODIUM 100 MG (COLACE) CAP PO SCH ×2 (07:48→20:02)
[2021-12-16] MEDS: amLODIPine 2.5MG (NORVASC) TAB PO SCH (07:48)
--- NOTE | 2021-12-16 08:45 | Speech Therapy Daily Note ---
Speech Daily Progress Note Subjective Date Seen by Provider: Dec 16, 2021 Time Seen by Provider: 08:15 The patient was seated upright in her recliner, awake and alert upon entrance to her room by the clinician. The patient greeted the clinician appropriately and was agreeable to participation in the cognitive linguistic treatment session. Objective - Orientation: The patient remains 100% oriented (independently) to self, location, month, day of week, date and year. - Visual Memory: The clinician provided the patient with a photo and asked the p atient to "study" the photo for approximately two to three minutes. Following, specific questions were asked of the patient regarding the photo. Initially, the patient displayed less than 30% accuracy. During the second attempt, the patient was provided the photo during the questions and displayed 100% accuracy. The exercise was used to display the importance of external memory strategies in the patient's environment, such as a calendar. Assessment Assessment Current Status: Good Progress Treatment Plan Continue Plan of Care Speech Short Term Goals Short Term Goals Short Term Goals 1. The patient will demonstrated 80% accuracy on memory exercises with mild cl inician verbal and visual cueing. Time Frame-STG: One Week. Speech Audit Control Clerk Goals Fdc Goals 1. The patient will improve cognitive linguistic skills for a safe discharge to the least restricted environment. Time Frame: Two Weeks. Speech-Plan Treatment Plan Speech Therapy Treatment Plan: Continue Plan of Care Treatment Duration: Dec 14, 2021 Frequency: Modified Program (IRF) (Three to five times per week.) Estimated Hrs Per Day: .5 hour per day Rehab Potential: Fair Safety Risks/Education Teaching Recipient: Patient Teaching Methods: Demonstration, Discussion Response to Teaching: Return Demonstration Education Topics Provided: External Memory Strategies Time Speech Therapy Time In: 08:15 Speech Therapy Time Out: 08:45 Total Billed Time: 30 Billed Treatment Time 1SRINIVASAN [address]IZABETH ST Dec 16, 2021 08:45
[2021-12-16] MEDS: SENNOSIDES 8.6 MG (SENOKOT) TAB PO SCH ×2 (09:33→20:02)
--- NOTE | 2021-12-16 10:36 | Occupational Ther Daily Note ---
OT Current Status-Daily Note Subjective Pt alert, sitting in recliner. Pt agrees to therapy. No c/o pain. Mental Status/Objective Patient Orientation: Person, Confused (problem solving, memory), Place, Time, Situation ADL-Treatment Pt declines shower or sponge bath. Pt agrees to changing clothing. Set up for upper body dressing, SBA for lower body dressing. SBA for toileting. Sitting at sink, oral care independently. Therapy Code Descriptions/Definitions Functional [place] Measure: 0=Not Assessed/NA 4=Minimal Assistance 1=Total Assistance 5=Supervision or Setup 2=Maximal Assistance 6=Modified [place] 3=Moderate Assistance 7=Complete IndependenceSCALE: Activities may be completed with or without assistive devices. 4-Prtcrfddln-amoyxsd completes the activity by him/herself with no assistance from a helper. 5-Set-up or Clean-up Assistance-helper sets up or cleans up; patient completes activity. [place] assists only prior to or following the activity. 4-Supervision or Touching Assistance-helper provides verbal cues and/or touching/steadying and/or contact guard assistance as patient completes activity. Assistance may be provided throughout the activity or intermittently. 3-Partial/Moderate Assistance-helper does LESS THAN HALF the effort. [place] lifts, holds or supports trunk or limbs, but provides less than half the effort. 2-Substantial/Maximal Assistance-helper does MORE THAN HALF the effort. [place] lifts or holds trunk or limbs and provides more than half the effort. 8-Rigmlpjcq-gzgdpo does ALL the effort. Patient does none of the effort to complete the activity. Or, the assistance of 2 or more helpers is required for the patient to complete the activity. If activity was not attempted, code reason: 7-Patient Refused. 9-Not Applicable-not attempted and the patient did not perform the activity be fore the current illness, exacerbation or injury. 10-Not Attempted due to Environmental Limitations-(lack of equipment, weather restraints, etc.). 88-Not Attempted due to Medical Conditions or Safety Concerns. Oral Hygiene (QC): 6 Upper Body Dressing (QC): 5 Lower Body Dressing (QC): 4 On/Off Footwear: 5 Toileting Hygiene (QC): 4 Toilet Transfer (QC): 4 Other Treatment Pt ambulates around room using FWW and close SBA due to gait pattern and L LE fatigues quickly. Propels w/c from room <--> therapy gym by self with verbal cues to look toward L. Arm bike completed for 10 min at 15 rodriguez resistance, L UE criminal analyst sustained throughout session except 1x. Pt able to maintain criminal analyst on arm bike while focusing on cognitive task at the same time. Resistive clothes pins completed 2x's each hand. Pt is progressing with L hand coordination and strength. After session, pt sitting in recliner with call light/phone in reach. All needs met in room. OT Short Term Goals Short Term Goals Time Frame: Dec 14, 2021 Eatin Oral hygiene: 4 Toileting hygiene: 2 Shower/bathe self: 2 Upper body dressin Lower body dressin Putting on/taking off footwear: 2 OT Shelter Goals Shelter Goals Time Frame: Dec 28, 2021 Eating (QC): 5 Oral Hygiene (QC): 6 Toileting Hygiene (QC): 4 Shower/Bathe Self (QC): 4 Upper Body Dressing (QC): 4 Lower Body Dressing (QC): 4 On/Off Footwear (QC): 4 1=Demonstrate adherence to instructed precautions during ADL tasks. 2=Patient will verbalize/demonstrate understanding of assistive devices/modifications for ADL. 3=Patient will improve strength/tolerance for activity to enable patient to perform ADL's. OT Education/Plan Problem List/Assessment Assessment: Decreased Activ Tolerance, Decreased UE Strength, Impaired Cognition, Impaired Coordination, Impaired Funct Balance, Impaired Self-Care Sk ills, Restricted Funct UE ROM Discharge Recommendations Plan/Recommendations: Continue POC Treatment Plan/Plan of Care Patient would benefit from OT for education, treatment and training to promote independence in ADL's, mobility, safety and/or upper extremity function for ADL's. Plan of Care: ADL Retraining, Caregiver Training, Cognitive Retraining, Functional Mobility, Group Exercise/Act as Ind, UE Funct Exercise/Act, UE Neuromus Re-Ed/Coord, Visual/Perceptual Retrain, W/C Management Training Treatment Duration: Dec 28, 2021 Frequency: Modified Program (IRF) Estimated Hrs Per Day: 1 hour per day (75-90 min/day) Agreement: Yes Rehab Potential: Fair Time/GCodes Start Time: 08:45 Stop Time: 10:00 Total Time Billed (hr/min): 75 Billed Treatment Time 1 visit-ADL 3 (40 min) EX 2 (35 min) ROHIT BENTLEY Dec 16, 2021 10:36
--- NOTE | 2021-12-16 11:25 | Physical Therapy Daily Note ---
PT Daily Note-Current Subjective Pt sitting in recliner upon arrival. Pt agrees to PT. Pain Location: No Pain Reported Mental Status Patient Orientation: Person, Place Transfers SCALE: Activities may be completed with or without assistive devices. 3-Fiqqxmidlp-vlhmakl completes the activity by him/herself with no assistance from a helper. 5-Set-up or Clean-up Assistance-helper sets up or cleans up; patient completes activity. [place] assists only prior to or following the activity. 4-Supervision or Touching Assistance-helper provides verbal cues and/or touching/steadying and/or contact guard assistance as patient completes activity. Assistance may be provided throughout the activity or intermittently. 3-Partial/Moderate Assistance-helper does LESS THAN HALF the effort. [place] lifts, holds or supports trunk or limbs, but provides less than half the effort. 2-Substantial/Maximal Assistance-helper does MORE THAN HALF the effort. [place] lifts or holds trunk or limbs and provides more than half the effort. 3-Eszwdbqtd-utmixi does ALL the effort. Patient does none of the effort to complete the activity. Or, the assistance of 2 or more helpers is required for the patient to complete the activity. If activity was not attempted, code reason: 7-Patient Refused. 9-Not Applicable-not attempted and the patient did not perform the activity before the current illness, exacerbation or injury. 10-Not Attempted due to Environmental Limitations-(lack of equipment, weather restraints, etc.). 88-Not Attempted due to Medical Conditions or Safety Concerns. Sit to Stand (QC): 4 Weight Bearing Full Weight Bearing Full Weight Bearing Gait Training Does the Patient Walk?: Yes Distance: 125' x2 Walk 10 feet (QC): 5 Walk 50 ft with 2 Turns(QC): 4 Walk 150 ft (QC): 4 Gait Persons Needed: 1 Gait Assistive Device: FWW Pt continues to walk w/[place] gait pattern which is further demonstrated by the fact that pt walks w/L hip extended further L. Exercises Seated Therapy Exercises: Ankle pumps, Long arc quads, Hip flexion, Hip abd/add, Glut set Seated Reps: 15 NuStep Minutes: 13 NuStep Workload: 4 Treatments Pt completes Seated EX at recliner while pt's floor dried. TF to standing but declines need for BR. Pt amb. in hallway then uses NuStep. After short RB, pt amb. in hallway & returns to room at end of tx to rest. All needs met, call light in hand. Assessment Current Status: Good Progress Pt's TF are getting easier and safer. PT Short Term Goals Short Term Goals Time Frame: Dec 07, 2021 Roll Left & Right: 3 (modA) Sit to lyin (moA) Lying to sitting on side of be: 3 (modA) Sit to stand: 3 (modA) Chair/leu-di-xfdts transfer: 3 (modA) PT Bung Remover Goals Nursing Home Goals PT Bung Remover Goals Time Frame: Dec 21, 2021 Roll Left & Right (QC): 3 (Jonathan) Sit to Lying (QC): 3 (Jonathan) Lying-Sitting on Side/Bed(QC): 3 (Jonathan) Sit to Stand (QC): 3 (Jonathan) Chair/Lqa-lc-Jfhga Xfer(QC): 3 (Jonathan) Toilet Transfer (QC): 3 (Jonathan) Car Transfer (QC): 3 (Jonathan) Does the Patient Walk: No and Walking Goal IS indicated Walk 10 feet (QC): 3 (modA) Walk 50ft with 2 Turns (QC): 88 Walk 150 ft (QC): 88 Walking 10ft on Uneven Surface: 88 1 Step (curb) (QC): 88 4 Steps (QC): 88 12 Steps (QC): 88 Picking up an Object (QC): 88 Wheel 50 feet with 2 turns (QC: 4 (SBA) Wheel 150 feet: 4 (SBA) PT Plan Problem List Problem List: Activity Tolerance, Gait Treatment/Plan Treatment Plan: Continue Plan of Care Treatment Plan: Bed Mobility, Education, Functional Activity Anitra, Functional Strength, Group Therapy, Gait, Safety, Therapeutic Exercise, Transfers Treatment Duration: Dec 21, 2021 Frequency: At least 5 of 7 days/Wk (IRF) Estimated Hrs Per Day: 1.5 hours per day Patient and/or Family Agrees t: Yes Safety Risks/Education Patient Education: Gait Training Time/GCodes Time In: 1015 Time Out: 1115 Total Billed Treatment Time: 60 Total Billed Treatment 1, FA (15m), EX x2 (25m) & GT (20m) SIENNA FERNANDEZ SOAP PRESS FEEDER Dec 16, 2021 11:25
--- NOTE | 2021-12-16 14:10 | Physical Therapy Daily Note ---
PT Daily Note-Current Subjective Pt sitting in recliner visiting w/Sp upon arrival. Pt agrees to PT. Pain Location: No Pain Reported Mental Status Patient Orientation: Person, Place Transfers SCALE: Activities may be completed with or without assistive devices. 1-Nmmcduutud-wmklond completes the activity by him/herself with no assistance from a helper. 5-Set-up or Clean-up Assistance-helper sets up or cleans up; patient completes activity. [place] assists only prior to or following the activity. 4-Supervision or Touching Assistance-helper provides verbal cues and/or touching/steadying and/or contact guard assistance as patient completes activity. Assistance may be provided throughout the activity or intermittently. 3-Partial/Moderate Assistance-helper does LESS THAN HALF the effort. [place] lifts, holds or supports trunk or limbs, but provides less than half the effort. 2-Substantial/Maximal Assistance-helper does MORE THAN HALF the effort. [place] lifts or holds trunk or limbs and provides more than half the effort. 1-Dtnavnesf-snmujr does ALL the effort. Patient does none of the effort to complete the activity. Or, the assistance of 2 or more helpers is required for the patient to complete the activity. If activity was not attempted, code reason: 7-Patient Refused. 9-Not Applicable-not attempted and the patient did not perform the activity before the current illness, exacerbation or injury. 10-Not Attempted due to Environmental Limitations-(lack of equipment, weather restraints, etc.). 88-Not Attempted due to Medical Conditions or Safety Concerns. Sit to Stand (QC): 4 Toilet Transfer (QC): 4 Weight Bearing Full Weight Bearing Full Weight Bearing Gait Training Does the Patient Walk?: Yes Distance: 60' x2 Walk 10 feet (QC): 4 Walk 50 ft with 2 Turns(QC): 4 Walk 150 ft (QC): 4 Gait Persons Needed: 1 Gait Assistive Device: FWW Exercises Supine Ex: Ankle pumps, Rolling, Heel Slides, Hip abd/add Supine Reps: 15 Treatments TF to standing then amb. in hallway before needing to return to room to use BR. After toileting, pt returns to Supine in bed w/all needs met, call light in hand. Bed alarm is set to least restrictive setting. Assessment Current Status: Fair Progress Pt is not socially aware of safety concerns. VC given as reminders. PT Short Term Goals Short Term Goals Time Frame: Dec 07, 2021 Roll Left & Right: 3 (modA) Sit to lyin (moA) Lying to sitting on side of be: 3 (modA) Sit to stand: 3 (modA) Chair/ivf-bf-vwyup transfer: 3 (modA) PT Senior Care Goals Senior Care Goals PT Credit Union Manager Goals Time Frame: Dec 21, 2021 Roll Left & Right (QC): 3 (Jonathan) Sit to Lying (QC): 3 (Jonathan) Lying-Sitting on Side/Bed(QC): 3 (Jonathan) Sit to Stand (QC): 3 (Jonathan) Chair/Kac-lb-Egkdx Xfer(QC): 3 (Jonathan) Toilet Transfer (QC): 3 (Jonathan) Car Transfer (QC): 3 (Jonathan) Does the Patient Walk: No and Walking Goal IS indicated Walk 10 feet (QC): 3 (modA) Walk 50ft with 2 Turns (QC): 88 Walk 150 ft (QC): 88 Walking 10ft on Uneven Surface: 88 1 Step (curb) (QC): 88 4 Steps (QC): 88 12 Steps (QC): 88 Picking up an Object (QC): 88 Wheel 50 feet with 2 turns (QC: 4 (SBA) Wheel 150 feet: 4 (SBA) PT Plan Problem List Problem List: Activity Tolerance, Safety, Gait Treatment/Plan Treatment Plan: Continue Plan of Care Treatment Plan: Bed Mobility, Education, Functional Activity Anitra, Functional Strength, Group Therapy, Gait, Safety, Therapeutic Exercise, Transfers Treatment Duration: Dec 21, 2021 Frequency: At least 5 of 7 days/Wk (IRF) Estimated Hrs Per Day: 1.5 hours per day Patient and/or Family Agrees t: Yes Safety Risks/Education Patient Education: Gait Training, Correct Positioning, Safety Issues Teaching Recipient: Patient Teaching Methods: Discussion Response to Teaching: Reinforcement Needed Time/GCodes Time In: 1320 Time Out: 1350 Total Billed Treatment Time: 30 Total Billed Treatment 1, EX (10m) & FA (20m) SIENNA FERNANDEZ SEASONAL CLERK Dec 16, 2021 14:10
[2021-12-16 19:53] VITALS: BP 137/62
[2021-12-16] MEDS: ZOLPIDEM 5 MG (AMBIEN) TAB PO SCH (20:57)
--- NOTE | 2021-12-17 06:10 | PM&R Progress Note ---
Subjective HPI/CC On Admission Date Seen by Provider: Dec 17, 2021 Time Seen by Provider: 12:30 Subjective/Events-last exam 12/17/2021: Pt is doing really well Discharge on Tuesday No falls No pain [place] will need a coupon since she doesn't have part D medication coverage 12/16/2021: Pt is doing well Has many questions as usual, all answered No falls 12/15/2021: Patient doing well Complains of headache at times and I explained that could be long-term or it could dissipate slowly No other issues Checked meds and labs 12/14/2021: Patient doing really well Always has plenty of questions Bowels moved today Headache likely is due to the stroke Aspercreme and Ultram will be given 12/13/2021: No major issues Feels like she is doing much better Check meds and labs 12/12/2021: Patient doing well and granddaughter at the bedside No pain is reported Ultram used for shoulder pain Checked meds and labs 12/11/2021: No major issues Counseled her in-depth about CVA and AF and details No pain reported Ultram effective as it is at home Daughter still wants her to try Namenda and I have told her not until she is recovered from CVA 12/10/2021: Patient doing well No pain Ultram taken on regular basis as baseline No falls Lost 6 # since last seen in my office 12/09/2021: Patient doing well No pain reported Dramatically improved No falls 12/08/21: Pt is doing pretty well Had a headache, received Ultram Loose stools No other concerns 12/07/21: Patient doing well Daughter and son at the bedside and we talked about the need to stay as long as possible to gain strength Memory loss discussed and will allow CVA recovery until we entertain that No pain 12/06/21: Patient doing well No pain is reported Left side is moving really well Asked again why she cannot go home 12/05/2021: Patient had a really good mood Wants to go home and asking again over and over the same question so her cognition has variability No falls Moving left side really well 12/04/2021: Pt doing well Lucid thought process now Ultram for shoulder pain Bowels moved a couple of days ago will give her stool softeners 12/03/21: Pt is doing pretty well Incontinence noted Dementia issues are apparent Daughter wants to know if she can be started on dementia medication and an appetite stimulant, but she is just really not stable enough neurologically to start meds. Appetite stimulant is not indicated at this time. 12/02/21: Pt is doing really well Discontinued spencer catheter, she is incontinent Post void residual is minimal Will increase PO fluids Discontinue telemetry Allevyn will be placed on her bottom due to high risk for stage 1 Incontinent of stool last night so will monitor that closely 12/01/21: Pt had her spencer taken out Incontinent of urine Labs look okay Discontinue telemetry because it is afib Participating with all therapies Review of Systems General: Fatigue, Malaise Objective Exam Vital Signs Vital Signs Date Time Temp Pulse Resp B/P (MAP) Pulse Ox O2 Delivery O2 Flow Rate FiO2 12/17/21 20:22 36.5 79 18 133/72 (92) 96 Room Air Capillary Refill : General Appearance: No Apparent Distress, WD/WN, Chronically ill, Obese HEENT: PERRL/EOMI, Normal ENT Inspection, Pharynx Normal Neck: Full Range of Motion, Normal Inspection, Non Tender, Supple, Carotid Bruit Respiratory: Chest Non Tender, Lungs Clear, Normal Breath Sounds, No Accessory Muscle Use, No Respiratory Distress Cardiovascular: Regular Rate, Rhythm, No Edema, No Gallop, No JVD, No Murmur, Normal Peripheral Pulses Gastrointestinal: Normal Bowel Sounds, No Organomegaly, No Pulsatile Mass, Non Tender, Soft Back: Normal Inspection, No CVA Tenderness, No Vertebral Tenderness Extremity: Normal Capillary Refill, Normal Inspection, Normal Range of Motion, Non Tender, No Calf Tenderness, No Pedal Edema Neurologic/Psychiatric: Alert, Oriented x3, Normal Mood/Affect, professional development instructor II-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 FIM Transfers Therapy Code Descriptions/Definitions Functional [place] Measure: 0=Not Assessed/NA 4=Minimal Assistance 1=Total Assistance 5=Supervision or Setup 2=Maximal Assistance 6=Modified [place] 3=Moderate Assistance 7=Complete IndependenceSCALE: Activities may be completed with or without assistive devices. 8-Qzyrmsvkpb-zjtjwld completes the activity by him/herself with no assistance from a helper. 5-Set-up or Clean-up Assistance-helper sets up or cleans up; patient completes activity. [place] assists only prior to or following the activity. 4-Supervision or Touching Assistance-helper provides verbal cues and/or touching/steadying and/or contact guard assistance as patient completes activity. Assistance may be provided throughout the activity or intermittently. 3-Partial/Moderate Assistance-helper does LESS THAN HALF the effort. [place] lifts, holds or supports trunk or limbs, but provides less than half the effort. 2-Substantial/Maximal Assistance-helper does MORE THAN HALF the effort. [place] lifts or holds trunk or limbs and provides more than half the effort. 4-Nvsbjjffj-zhxinn does ALL the effort. Patient does none of the effort to complete the activity. Or, the assistance of 2 or more helpers is required for the patient to complete the activity. If activity was not attempted, code reason: 7-Patient Refused. 9-Not Applicable-not attempted and the patient did not perform the activity before the current illness, exacerbation or injury. 10-Not Attempted due to Environmental Limitations-(lack of equipment, weather restraints, etc.). 88-Not Attempted due to Medical Conditions or Safety Concerns. Roll Left to Right (QC): 6 Sit to Lying (QC): 6 Sit to Stand (QC): 4 Chair/Rjy-qc-Tkjqc Xfer(QC): 4 Car Transfer (QC): 6 Gait Training Does the Patient Walk?: Yes Distance: 60' x2 Walk 10 feet (QC): 4 Walk 50 ft with 2 Turns(QC): 4 Walk 150 ft (QC): 4 Walking 10ft/uneven surface-QC: 88 Gait Persons Needed: 1 Gait Assistive Device: FWW Wheelchair Training Does the Pt Use a Wheelchair?: Yes Distance: 50'x2 Wheel 50 ft with 2 turns (QC): 4 Wheel 150 ft (QC): 4 Type of Wheelchair: Manual Stair Training 1 Step (curb) (QC): 88 4 Steps (QC): 88 12 Steps (QC): 88 Balance Picking up an Object (QC): 88 ADL-Treatment Eating (QC): 6 Oral Hygiene (QC): 6 Bathing Location: L Arm, R Arm, L Upper Leg, R Upper Leg, L Lower Leg (including foot), R Lower Leg (including foot), Chest, Abdomen, Buttocks, Perineal Area Shower/Bathe Self (QC): 4 Upper Body Dressing (QC): 5 Lower Body Dressing (QC): 4 On/Off Footwear (QC): 5 Toileting Hygiene (QC): 4 Toilet Transfer (QC): 4 Assessment/Plan Assessment and Plan Assess & Plan/Chief Complaint Assessment: CVA subacute not a tPa candidate New atrial fibrillation placed on oral anticoagulation and consult cardiology 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 Confusion now resolved Expressive aphasia much improved HTN HLP Chronic pain Osteoarthritis Cognitive decline with paranoia noted as outpatient in past 1 year Weight loss 6# since last seen in my clinic currently 124# Plan: Oral anticoagulation Aggressive rehab Supportive care Fall risk 12/01/21: Supportive care Monitor BP 12/02/21: Monitor BP Incontinence care 12/03/21: Monitor BP 12/04/21: Improved status Monitor closely 12/05/2021: Supportive care Fall risk 12/06/21: Ultram for pain as she takes at home No other concerns 12/07/21: Monitor closely Ultram PT OT 12/08/21: PT/OT Dramatic improvement 12/09/2021: Fall risk Increase independence 12/10/2021: Increase nutrition 12/11/21: Monitor closely Increase portion of nutrition 12/12/2021: Monitor closely 12/13/2021: Increase nutrition Fall risk 12/14/2021: BOYD management 12/15/2021: BOYD management 12/16/2021: Continued progress 12/17/2021: Monitor progress DC Tuesday (1) Cerebrovascular accident due to cerebral artery occlusion Status: Acute (2) Hypertension Status: Chronic (3) Osteoarthritis Status: Chronic (4) Insomnia Status: Chronic (5) Atrial fibrillation Status: Acute (6) Overactive bladder Status: Chronic (7) History of bowel resection Status: Chronic LUIS FELIPE COREAS DO Dec 17, 2021 06:10
[2021-12-17 07:26] VITALS: BP 156/77
[2021-12-17] MEDS: ASPIRIN 325 MG (5 GR) TABLET PO SCH (08:08)
[2021-12-17] MEDS: SENNOSIDES 8.6 MG (SENOKOT) TAB PO SCH ×2 (08:08→20:30)
[2021-12-17] MEDS: DOCUSATE SODIUM 100 MG (COLACE) CAP PO SCH ×2 (08:08→20:28)
[2021-12-17] MEDS: APIXABAN 2.5 MG (ELIQUIS) TABLET PO SCH ×2 (08:08→20:28)
[2021-12-17] MEDS: amLODIPine 2.5MG (NORVASC) TAB PO SCH (08:08)
[2021-12-17] MEDS: ACETAMINOPHEN 325 MG TABLET PO PRN (08:13)
--- NOTE | 2021-12-17 08:31 | Speech Therapy Daily Note ---
Speech Daily Progress Note Subjective Date Seen by Provider: Dec 17, 2021 Time Seen by Provider: 08:00 The patient was seated upright in her recliner, awake and alert upon entrance to her room by the clinician. The patient greeted the clinician appropriately and was agreeable to participation in the cognitive linguistic treatment session. To note, the patient independently initiated conversation on this date, asking the clinician how her evening was. Additionally, the patient recalled the RN's name and the clinician's name, independently. Objective - Orientation: The patient remains 100% oriented (independently) to self, location, month, day of week, date and year. - Visual Memory: The clinician provided the patient with a photo and asked the patient to "study" the photo for approximately two to three minutes. Following, specific questions were asked of the patient regarding the photo. Initially, the patient displayed less than 40% accuracy. During the second attempt, the patient was provided the photo during the questions and displayed 100% accuracy. The exercise was used to display the importance of external memory strategies in the patient's environment, such as a calendar. The patient independently recalled a conversation with the clinician from an earlier date and requested clarification. The clinician feels this displays excellent progression of short term recall skills. Assessment Assessment Current Status: Good Progress Treatment Plan Continue Plan of Care Speech Short Term Goals Short Term Goals Short Term Goals 1. The patient will demonstrated 80% accuracy on memory exercises with mild clinician verbal and visual cueing. Time Frame-STG: One Week. Speech Snf Goals Practice Director Goals 1. The patient will improve cognitive linguistic skills for a safe discharge to the least restricted environment. Time Frame: Two Weeks. Speech-Plan Treatment Plan Speech Therapy Treatment Plan: Continue Plan of Care Treatment Duration: Dec 14, 2021 Frequency: Modified Program (IRF) (Three to five times per week.) Estimated Hrs Per Day: .5 hour per day Rehab Potential: Fair Safety Risks/Education Teaching Recipient: Patient Teaching Methods: Discussion Response to Teaching: Verbalize Understanding Education Topics Provided: External Memory Strategies Time Speech Therapy Time In: 08:00 Speech Therapy Time Out: 08:30 Total Billed Time: 30 Billed Treatment Time ChuckTABSRINI Jazlyn TARA TOLEDOLORENA DOBBINS Dec 17, 2021 08:31
--- NOTE | 2021-12-17 09:56 | Occupational Ther Daily Note ---
OT Current Status-Daily Note Subjective Pt alert, sitting in recliner. Pt agrees to therapy. No c/o pain. Mental Status/Objective Patient Orientation: Person, Confused (memory, problem solving), Time ADL-Treatment Pt agrees to shower. SBA for safety to transfer in/out of shower. SBA for saf ety during shower while pt sat on shower bench and used grabbars, hand held shower to complete shower. After set up, pt able to complete upper body dressing and footwear. SBA for safety to hike pants over hips with dressing and toileting. Pt is able to thread feet into lower body clothing by self. Pt completes toileting hygiene while sitting. Independent completing oral care w hile sitting at sink. Pt does ambulate to bathroom using FWW with SBA for safety due to unsafe gait pattern. Therapy Code Descriptions/Definitions Functional [place] Measure: 0=Not Assessed/NA 4=Minimal Assistance 1=Total Assistance 5=Supervision or Setup 2=Maximal Assistance 6=Modified [place] 3=Moderate Assistance 7=Complete IndependenceSCALE: Activities may be completed with or without assistive devices. 2-Isessfmdnc-qopcjkm completes the activity by him/herself with no assistance from a helper. 5-Set-up or Clean-up Assistance-helper sets up or cleans up; patient completes activity. [place] assists only prior to or following the activity. 4-Supervision or Touching Assistance-helper provides verbal cues and/or touching/steadying and/or contact guard assistance as patient completes activity. Assistance may be provided throughout the activity or intermittently. 3-Partial/Moderate Assistance-helper does LESS THAN HALF the effort. [place] lifts, holds or supports trunk or limbs, but provides less than half the effort. 2-Substantial/Maximal Assistance-helper does MORE THAN HALF the effort. [place] lifts or holds trunk or limbs and provides more than half the effort. 7-Gvsuwbhag-curmhv does ALL the effort. Patient does none of the effort to complete the activity. Or, the assistance of 2 or more helpers is required for the patient to complete the activity. If activity was not attempted, code reason: 7-Patient Refused. 9-Not Applicable-not attempted and the patient did not perform the activity before the current illness, exacerbation or injury. 10-Not Attempted due to Environmental Limitations-(lack of equipment, weather restraints, etc.). 88-Not Attempted due to Medical Conditions or Safety Concerns. Eating (QC): 6 Oral Hygiene (QC): 6 Shower/Bathe Self (QC): 4 Upper Body Dressing (QC): 5 Lower Body Dressing (QC): 4 On/Off Footwear: 5 Toileting Hygiene (QC): 4 Toilet Transfer (QC): 4 OT Short Term Goals Short Term Goals Time Frame: Dec 14, 2021 Eatin Oral hygiene: 4 Toileting hygiene: 2 Shower/bathe self: 2 Upper body dressin Lower body dressin Putting on/taking off footwear: 2 OT Cash Management Coordinator Goals Longterm Goals Time Frame: Dec 28, 2021 Eating (QC): 5 (met) Oral Hygiene (QC): 6 (met) Toileting Hygiene (QC): 4 (met) Shower/Bathe Self (QC): 4 (met) Upper Body Dressing (QC): 4 (met) Lower Body Dressing (QC): 4 (met) On/Off Footwear (QC): 4 (met) 1=Demonstrate adherence to instructed precautions during ADL tasks. 2=Patient will verbalize/demonstrate understanding of assistive devices/modifications for ADL. 3=Patient will improve strength/tolerance for activity to enable patient to perform ADL's. OT Education/Plan Problem List/Assessment Assessment: Decreased Activ Tolerance, Decreased Safety Aware, Impaired Coordination, Impaired Funct Balance, Restricted Funct UE ROM Discharge Recommendations Plan/Recommendations: Continue POC Therapy Discharge Recommendati: Scheduled Assistance, Bath Aide, Home & Family, Post Acute PT, Post Acute ST, Post Acute OT Equpiment Recommendations-D/C: Rails on Tub/Shower, Bath Chair, Extended Shower Sprayer, Rails on Toilet Treatment Plan/Plan of Care Patient would benefit from OT for education, treatment and training to promote independence in ADL's, mobility, safety and/or upper extremity function for ADL's. Plan of Care: ADL Retraining, Caregiver Training, Cognitive Retraining, Functional Mobility, Group Exercise/Act as Ind, UE Funct Exercise/Act, UE Neuromus Re-Ed/Coord, Visual/Perceptual Retrain, W/C Management Training Treatment Duration: Dec 28, 2021 Frequency: Modified Program (IRF) Estimated Hrs Per Day: 1 hour per day (75-90 min/day) Agreement: Yes Rehab Potential: Fair Time/GCodes Start Time: 08:30 Stop Time: 09:45 Total Time Billed (hr/min): 75 Billed Treatment Time 1 visit-ADL 3 (45 min) EX 2 (30 min) ROHIT BENTLEY Dec 17, 2021 09:56
--- NOTE | 2021-12-17 12:17 | Physical Therapy Daily Note ---
PT Daily Note-Current Subjective Pt. agrees to Rx. States she has been happy with her care here and feels she has gotten much stronger and feels confident about discharging on Tuesday. No c/o pain Pain Location: No Pain Reported Mental Status Patient Orientation: Person, Place, Time, Situation Transfers SCALE: Activities may be completed with or without assistive devices. 2-Wqgubhpuiu-vatphbl completes the activity by him/herself with no assistance from a helper. 5-Set-up or Clean-up Assistance-helper sets up or cleans up; patient completes activity. [place] assists only prior to or following the activity. 4-Supervision or Touching Assistance-helper provides verbal cues and/or touching/steadying and/or contact guard assistance as patient completes activity. Assistance may be provided throughout the activity or intermittently. 3-Partial/Moderate Assistance-helper does LESS THAN HALF the effort. [place] lifts, holds or supports trunk or limbs, but provides less than half the effort. 2-Substantial/Maximal Assistance-helper does MORE THAN HALF the effort. [place] lifts or holds trunk or limbs and provides more than half the effort. 0-Hrwifnmbh-lxzczr does ALL the effort. Patient does none of the effort to complete the activity. Or, the assistance of 2 or more helpers is required for the patient to complete the activity. If activity was not attempted, code reason: 7-Patient Refused. 9-Not Applicable-not attempted and the patient did not perform the activity before the current illness, exacerbation or injury. 10-Not Attempted due to Environmental Limitations-(lack of equipment, weather restraints, etc.). 88-Not Attempted due to Medical Conditions or Safety Concerns. Roll Left & Right (QC): 6 Sit to Lying (QC): 6 Lying to Sitting/Side of Bed(Q: 6 Sit to Stand (QC): 6 Chair/Ubx-ch-Jpopy Xfer(QC): 6 Toilet Transfer (QC): 6 Car Transfer (QC): 4 pt. needed safety cues for attempt to TRF into car as pt. was about to SLS on RLE and enter car with her left foot 1st. Instructed pt. to be seated 1st then bring LEs in, with this instruction she was able to TRF in and out car SBA Weight Bearing Full Weight Bearing Full Weight Bearing Gait Training Does the Patient Walk?: Yes Walk 10 feet (QC): 6 Walk 50 ft with 2 Turns(QC): 6 Walk 150 ft (QC): 6 Gait Persons Needed: 1 Gait Assistive Device: FWW SBA only for gait , pt. with unusual narrow ANGELIKA and far stance from FWW secondary to post polio and scoliosis but no LOB. Exercises Supine Ex: Bridging, Ankle pumps, Quad Set, Rolling, Glut sets, Heel Slides, Short Arc Quads, Scooting, Straight leg raise, Hip abd/add, Bicep Curls Supine Reps: 20 Seated Therapy Exercises: Biceps, Ankle pumps, Sit to stand, Shoulder Flex, Long arc quads, Shoulder Abd, Hip flexion Seated Reps: 20 NuStep Minutes: 8 NuStep Workload: 4 Treatments TRFs chair, bed and car, gait 165 ft x 2, 5ft x 2, seated and sup ex, toileting managing clean up and clothing indep. Assessment Current Status: Good Progress PT Short Term Goals Short Term Goals Time Frame: Dec 07, 2021 Roll Left & Right: 3 (modA) Sit to lyin (moA) Lying to sitting on side of be: 3 (modA) Sit to stand: 3 (modA) Chair/wsx-oq-sdvnz transfer: 3 (modA) PT [place] Goals Nursing Home Goals PT Nursing Home Goals Time Frame: Dec 21, 2021 Roll Left & Right (QC): 3 (Jonathan) Sit to Lying (QC): 3 (Jonathan) Lying-Sitting on Side/Bed(QC): 3 (Jonathan) Sit to Stand (QC): 3 (Jonathan) Chair/Nha-fj-Cfige Xfer(QC): 3 (Jonathan) Toilet Transfer (QC): 3 (Jonathan) Car Transfer (QC): 3 (Jonathan) Does the Patient Walk: No and Walking Goal IS indicated Walk 10 feet (QC): 3 (modA) Walk 50ft with 2 Turns (QC): 88 Walk 150 ft (QC): 88 Walking 10ft on Uneven Surface: 88 1 Step (curb) (QC): 88 4 Steps (QC): 88 12 Steps (QC): 88 Picking up an Object (QC): 88 Wheel 50 feet with 2 turns (QC: 4 (SBA) Wheel 150 feet: 4 (SBA) PT Plan Treatment/Plan Treatment Plan: Continue Plan of Care Treatment Plan: Bed Mobility, Education, Functional Activity Anitra, Functional Strength, Group Therapy, Gait, Safety, Therapeutic Exercise, Transfers Treatment Duration: Dec 21, 2021 Frequency: At least 5 of 7 days/Wk (IRF) Estimated Hrs Per Day: 1.5 hours per day Patient and/or Family Agrees t: Yes Safety Risks/Education Patient Education: Gait Training, Transfer Techniques, Correct Positioning, Disease Process, Safety Issues Teaching Recipient: Patient Teaching Methods: Demonstration, Discussion Response to Teaching: Verbalize Understanding, Return Demonstration, Reinforcement Needed much discussion and review of safety habits for home etc Time/GCodes Time In: 1100 Time Out: 1215 Total Billed Treatment Time: 75 Total Billed Treatment 1,EX35m,GT25m,FA15 NATALIE LADD DISTRICT SALES MANAGER Dec 17, 2021 12:17
[2021-12-17] MEDS ORDERED: APIX2.5T PO (12:30)
[2021-12-17 20:22] VITALS: BP 133/72
[2021-12-17] MEDS: ZOLPIDEM 5 MG (AMBIEN) TAB PO SCH (20:28)
--- NOTE | 2021-12-18 06:13 | PM&R Progress Note ---
Subjective HPI/CC On Admission Date Seen by Provider: Dec 18, 2021 Time Seen by Provider: 11:30 Subjective/Events-last exam 12/18/2021: Discharge is planned for Tuesday Eliquis samples given by my office and special line driver program signed Discharge planned for tomorrow 12/17/2021: Pt is doing really well Discharge on Tuesday No falls No pain [place] will need a coupon since she doesn't have part D medication coverage 12/16/2021: Pt is doing well Has many questions as usual, all answered No falls 12/15/2021: Patient doing well Complains of headache at times and I explained that could be long-term or it could dissipate slowly No other issues Checked meds and labs 12/14/2021: Patient doing really well Always has plenty of questions Bowels moved today Headache likely is due to the stroke Aspercreme and Ultram will be given 12/13/2021: No major issues Feels like she is doing much better Check meds and labs 12/12/2021: Patient doing well and granddaughter at the bedside No pain is reported Ultram used for shoulder pain Checked meds and labs 12/11/2021: No major issues Counseled her in-depth about CVA and AF and details No pain reported Ultram effective as it is at home Daughter still wants her to try Namenda and I have told her not until she is recovered from CVA 12/10/2021: Patient doing well No pain Ultram taken on regular basis as baseline No falls Lost 6 # since last seen in my office 12/09/2021: Patient doing well No pain reported Dramatically improved No falls 12/08/21: Pt is doing pretty well Had a headache, received Ultram Loose stools No other concerns 12/07/21: Patient doing well Daughter and son at the bedside and we talked about the need to stay as long as possible to gain strength Memory loss discussed and will allow CVA recovery until we entertain that No pain 12/06/21: Patient doing well No pain is reported Left side is moving really well Asked again why she cannot go home 12/05/2021: Patient had a really good mood Wants to go home and asking again over and over the same question so her cognition has variability No falls Moving left side really well 12/04/2021: Pt doing well Lucid thought process now Ultram for shoulder pain Bowels moved a couple of days ago will give her stool softeners 12/03/21: Pt is doing pretty well Incontinence noted Dementia issues are apparent Daughter wants to know if she can be started on dementia medication and an appetite stimulant, but she is just really not stable enough neurologically to start meds. Appetite stimulant is not indicated at this time. 12/02/21: Pt is doing really well Discontinued spencer catheter, she is incontinent Post void residual is minimal Will increase PO fluids Discontinue telemetry Allevyn will be placed on her bottom due to high risk for stage 1 Incontinent of stool last night so will monitor that closely 12/01/21: Pt had her spencer taken out Incontinent of urine Labs look okay Discontinue telemetry because it is afib Participating with all therapies Review of Systems General: Fatigue, Malaise Objective Exam Vital Signs Vital Signs Date Time Temp Pulse Resp B/P (MAP) Pulse Ox O2 Delivery O2 Flow Rate FiO2 12/18/21 19:58 36.6 79 20 155/87 (109) 96 Room Air Capillary Refill : General Appearance: No Apparent Distress, WD/WN, Chronically ill, Obese HEENT: PERRL/EOMI, Normal ENT Inspection, Pharynx Normal Neck: Full Range of Motion, Normal Inspection, Non Tender, Supple, Carotid Bruit Respiratory: Chest Non Tender, Lungs Clear, Normal Breath Sounds, No Accessory Muscle Use, No Respiratory Distress Cardiovascular: Regular Rate, Rhythm, No Edema, No Gallop, No JVD, No Murmur, Normal Peripheral Pulses Gastrointestinal: Normal Bowel Sounds, No Organomegaly, No Pulsatile Mass, Non Tender, Soft Back: Normal Inspection, No CVA Tenderness, No Vertebral Tenderness Extremity: Normal Capillary Refill, Normal Inspection, Normal Range of Motion, Non Tender, No Calf Tenderness, No Pedal Edema Neurologic/Psychiatric: Alert, Oriented x3, Normal Mood/Affect, station supervisor II-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 FIM Transfers Therapy Code Descriptions/Definitions Functional [place] Measure: 0=Not Assessed/NA 4=Minimal Assistance 1=Total Assistance 5=Supervision or Setup 2=Maximal Assistance 6=Modified [place] 3=Moderate Assistance 7=Complete IndependenceSCALE: Activities may be completed with or without assistive devices. 0-Evmygrjlin-tiuxllq completes the activity by him/herself with no assistance from a helper. 5-Set-up or Clean-up Assistance-helper sets up or cleans up; patient completes activity. [place] assists only prior to or following the activity. 4-Supervision or Touching Assistance-helper provides verbal cues and/or touching/steadying and/or contact guard assistance as patient completes activity. Assistance may be provided throughout the activity or intermittently. 3-Partial/Moderate Assistance-helper does LESS THAN HALF the effort. [place] lifts, holds or supports trunk or limbs, but provides less than half the effort. 2-Substantial/Maximal Assistance-helper does MORE THAN HALF the effort. [place] lifts or holds trunk or limbs and provides more than half the effort. 9-Nwzkchbai-bffves does ALL the effort. Patient does none of the effort to complete the activity. Or, the assistance of 2 or more helpers is required for the patient to complete the activity. If activity was not attempted, code reason: 7-Patient Refused. 9-Not Applicable-not attempted and the patient did not perform the activity befo re the current illness, exacerbation or injury. 10-Not Attempted due to Environmental Limitations-(lack of equipment, weather re straints, etc.). 88-Not Attempted due to Medical Conditions or Safety Concerns. Roll Left to Right (QC): 6 Sit to Lying (QC): 6 Sit to Stand (QC): 6 Chair/Vcn-ww-Wecuw Xfer(QC): 6 Car Transfer (QC): 4 Gait Training Does the Patient Walk?: Yes Distance: 60' x2 Walk 10 feet (QC): 6 Walk 50 ft with 2 Turns(QC): 6 Walk 150 ft (QC): 6 Walking 10ft/uneven surface-QC: 88 Gait Persons Needed: 1 Gait Assistive Device: FWW Wheelchair Training Does the Pt Use a Wheelchair?: Yes Distance: 50'x2 Wheel 50 ft with 2 turns (QC): 4 Wheel 150 ft (QC): 4 Type of Wheelchair: Manual Stair Training 1 Step (curb) (QC): 88 4 Steps (QC): 88 12 Steps (QC): 88 Balance Picking up an Object (QC): 88 ADL-Treatment Eating (QC): 6 Oral Hygiene (QC): 6 Bathing Location: L Arm, R Arm, L Upper Leg, R Upper Leg, L Lower Leg (including foot), R Lower Leg (including foot), Chest, Abdomen, Buttocks, Perineal Area Shower/Bathe Self (QC): 4 Upper Body Dressing (QC): 5 Lower Body Dressing (QC): 4 On/Off Footwear (QC): 5 Toileting Hygiene (QC): 4 Toilet Transfer (QC): 4 Assessment/Plan Assessment and Plan Assess & Plan/Chief Complaint Assessment: CVA subacute not a tPa candidate New atrial fibrillation placed on oral anticoagulation and consult cardiology 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 Confusion now resolved Expressive aphasia much improved HTN HLP Chronic pain Osteoarthritis Cognitive decline with paranoia noted as outpatient in past 1 year Weight loss 6# since last seen in my clinic currently 124# Plan: Oral anticoagulation Aggressive rehab Supportive care Fall risk 12/01/21: Supportive care Monitor BP 12/02/21: Monitor BP Incontinence care 12/03/21: Monitor BP 12/04/21: Improved status Monitor closely 12/05/2021: Supportive care Fall risk 12/06/21: Ultram for pain as she takes at home No other concerns 12/07/21: Monitor closely Ultram PT OT 12/08/21: PT/OT Dramatic improvement 12/09/2021: Fall risk Increase independence 12/10/2021: Increase nutrition 12/11/21: Monitor closely Increase portion of nutrition 12/12/2021: Monitor closely 12/13/2021: Increase nutrition Fall risk 12/14/2021: BOYD management 12/15/2021: BOYD management 12/16/2021: Continued progress 12/17/2021: Monitor progress DC Tuesday12/18/2021: DC tomorrow (1) Cerebrovascular accident due to cerebral artery occlusion Status: Acute (2) Hypertension Status: Chronic (3) Osteoarthritis Status: Chronic (4) Insomnia Status: Chronic (5) Atrial fibrillation Status: Acute (6) Overactive bladder Status: Chronic (7) History of bowel resection Status: Chronic LUIS FELIPE COREAS DO Dec 18, 2021 06:13
[2021-12-18] MEDS: APIXABAN 2.5 MG (ELIQUIS) TABLET PO SCH ×2 (07:30→20:18)
[2021-12-18] MEDS: amLODIPine 2.5MG (NORVASC) TAB PO SCH (07:30)
[2021-12-18] MEDS: DOCUSATE SODIUM 100 MG (COLACE) CAP PO SCH ×2 (07:31→20:19)
[2021-12-18] MEDS: ASPIRIN 325 MG (5 GR) TABLET PO SCH (07:31)
[2021-12-18 07:54] VITALS: BP 145/71
[2021-12-18] MEDS: SENNOSIDES 8.6 MG (SENOKOT) TAB PO SCH ×2 (08:03→20:19)
--- NOTE | 2021-12-18 09:00 | Speech Therapy Daily Note ---
Speech Daily Progress Note Subjective Date Seen by Provider: Dec 18, 2021 Time Seen by Provider: 09:00 The patient was seated in bed, awake and alert upon entrance to her room by the clinician. The patient greeted the clinician appropriately and was agreeable to Objective Expression of Ideas/Wants: (3) Understanding Verbal Content: (3) Brief Interview-Mental Status: Yes Repetition of Three Words: Three (3) Temporal Orientation: Year: Correct (3) Temporal Orientation: Month: Accurate within 5 days(2) Temporal Orientation: Day: Correct (1) Recall : Wear to say "Sock": Yes, no cue required (2) Recall : Color: Yes, no cue required (2) Recall : Bed: Yes, no cue required (2) Memory/Recall Ability: Current season, That he or she is in a hsp/hsp unit, staff names Orientation: The patient remains 100% oriented (independently) to month, day of the week, date and year. The patient and clinician discussed and reviewed safety in the home and the current support she will have available (spouse, daughter, two granddaughters) at discharge. The patient was encouraged to use the assistance provided, as well as, the external memory strategies practiced throughout her stay on ARU. The patient has demonstrated excellent progress at this time. Assessment Assessment Current Status: Good Progress Treatment Plan Continue Plan of Care Speech Short Term Goals Short Term Goals Short Term Goals 1. The patient will demonstrated 80% accuracy on memory exercises with mild clinician verbal and visual cueing. Time Frame-STG: One Week. Speech Roving Hauler Goals [facility] Goals 1. The patient will improve cognitive linguistic skills for a safe discharge to the least restricted environment. Time Frame: Two Weeks. Speech-Plan Treatment Plan Speech Therapy Treatment Plan: Continue Plan of Care Treatment Duration: Dec 14, 2021 Frequency: Modified Program (IRF) (Three to five times per week.) Estimated Hrs Per Day: .5 hour per day Rehab Potential: Fair Safety Risks/Education Teaching Recipient: Patient, Family Teaching Methods: Discussion Response to Teaching: Verbalize Understanding, Reinforcement Needed Education Topics Provided: Safety in the Home Time Speech Therapy Time In: 09:00 Speech Therapy Time Out: 09:30 Total Billed Time: 30 Billed Treatment Time SRINIVASAN Woods ELIZABETH Dec 18, 2021 09:00
--- NOTE | 2021-12-18 11:27 | Occupational Ther Daily Note ---
OT Current Status-Daily Note Subjective Pt alert, lying in bed. Pt agrees to therapy. No c/o pain. Pt has a lot of questions about discharge tomorrow and what she is supposed to do for today. Mental Status/Objective Patient Orientation: Person, Confused (problem solving, memory), Place, Time ADL-Treatment 2nd session(1551-7341)-Pt able to complete oral care sitting at sink independently. Pt requested to use toilet at end of session. Supervision to SBA for safety with toileting hygiene and clothing manipulation. SBA for transfer on/off toilet using FWW and grabbars. Pt requires verbal cues for safe stand to sit using FWW. After session, pt sitting in recliner with call light/phone in reach. All needs met in room. Therapy Code Descriptions/Definitions Functional [place] Measure: 0=Not Assessed/NA 4=Minimal Assistance 1=Total Assistance 5=Supervision or Setup 2=Maximal Assistance 6=Modified [place] 3=Moderate Assistance 7=Complete IndependenceSCALE: Activities may be completed with or without assistive devices. 3-Ebtntsephu-zgtodua completes the activity by him/herself with no assistance from a helper. 5-Set-up or Clean-up Assistance-helper sets up or cleans up; patient completes activity. [place] assists only prior to or following the activity. 4-Supervision or Touching Assistance-helper provides verbal cues and/or touching/steadying and/or contact guard assistance as patient completes activity. Assistance may be provided throughout the activity or intermittently. 3-Partial/Moderate Assistance-helper does LESS THAN HALF the effort. [place] lifts, holds or supports trunk or limbs, but provides less than half the effort. 2-Substantial/Maximal Assistance-helper does MORE THAN HALF the effort. [place] lifts or holds trunk or limbs and provides more than half the effort. 1-Vedkpsqbx-phqrpz does ALL the effort. Patient does none of the effort to complete the activity. Or, the assistance of 2 or more helpers is required for the patient to complete the activity. If activity was not attempted, code reason: 7-Patient Refused. 9-Not Applicable-not attempted and the patient did not perform the activity before the current illness, exacerbation or injury. 10-Not Attempted due to Environmental Limitations-(lack of equipment, weather restraints, etc.). 88-Not Attempted due to Medical Conditions or Safety Concerns. Oral Hygiene (QC): 6 Upper Body Dressing (QC): 5 Lower Body Dressing (QC): 4 On/Off Footwear: 5 Toileting Hygiene (QC): 4 Toilet Transfer (QC): 4 Other Treatment 1st session([id number])-Pt able to complete bed mobility independently. Pt using L UE functionally though continues to have dexterity and sensation difficulties during coordination tasks. Pt able to don/doff sweater by self in bed. After therapy, pt lying in bed with call light/phone in reach. All needs met in room. 2nd session([id number])-Pt given HEP for theraputty and theraband exercises. Skilled instruction given for correct technique and modifications when required. Pt has difficulty with following 2 or more step instructions and requires physical and visual cues to complete exercises correctly. Pt has decreased L hand strength and coordination, activities working on increasing sensation and strength completed. OT Short Term Goals Short Term Goals Time Frame: Dec 14, 2021 Eatin Oral hygiene: 4 Toileting hygiene: 2 Shower/bathe self: 2 Upper body dressin Lower body dressin Putting on/taking off footwear: 2 OT Director Of Labor And Delivery Goals Director Of Labor And Delivery Goals Time Frame: Dec 28, 2021 Eating (QC): 5 (met) Oral Hygiene (QC): 6 (met) Toileting Hygiene (QC): 4 (met) Shower/Bathe Self (QC): 4 (met) Upper Body Dressing (QC): 4 (met) Lower Body Dressing (QC): 4 (met) On/Off Footwear (QC): 4 (met) 1=Demonstrate adherence to instructed precautions during ADL tasks. 2=Patient will verbalize/demonstrate understanding of assistive devices/modifications for ADL. 3=Patient will improve strength/tolerance for activity to enable patient to perform ADL's. OT Education/Plan Problem List/Assessment Assessment: Decreased Activ Tolerance, Decreased UE Strength, Impaired Cognition, Impaired Coordination, Impaired Self-Care Skills, Restricted Funct UE ROM Discharge Recommendations Plan/Recommendations: Continue POC Treatment Plan/Plan of Care Patient would benefit from OT for education, treatment and training to promote independence in ADL's, mobility, safety and/or upper extremity function for ADL's. Plan of Care: ADL Retraining, Caregiver Training, Cognitive Retraining, Functional Mobility, Group Exercise/Act as Ind, UE Funct Exercise/Act, UE Neuromus Re-Ed/Coord, Visual/Perceptual Retrain, W/C Management Training Treatment Duration: Dec 28, 2021 Frequency: Modified Program (IRF) Estimated Hrs Per Day: 1 hour per day (75-90 min/day) Agreement: Yes Rehab Potential: Fair Time/GCodes Start Time: 08:30 (1000) Stop Time: 08:45 (1100) Total Time Billed (hr/min): 75 Billed Treatment Time 1 visit([id number]) FA 1 (15 min) 1 visit([id number]) ADL 2 (30 min) EX 2 (30 min) ROHIT BENTLEY Dec 18, 2021 11:27
[2021-12-18] MEDS ORDERED: MTP25TSR PO (12:02)
[2021-12-18] MEDS ORDERED: ASPI-808 PO (12:02)
[2021-12-18] MEDS ORDERED: AMLO2.5T4 PO (12:02)
[2021-12-18] MEDS ORDERED: ATOR80TA76 PO (12:02)
--- NOTE | 2021-12-18 12:03 | D/C HH Face to Face Order ---
D/C HH Face to Face Orders Reconcile Patient Problems Problems Reviewed?: Yes Instructions for Patient HH Patient Instructions/FollowUp: Dr Lopez as scheduled Physician to follow Patient: Jessica Discharge Diet for Home: No Restrictions Patient Problems: CVA Goals for Patient: [place] Patient Data-Allergies,Ht & Wt Patient Allergies: Coded Allergies: No Known Drug Allergies (Unverified , 05/10/14) Height (Feet): 5 Height (Inches): 5.00 Weight (Pounds): 155 Weight (Ounces): 6.0 Home Health Need/Face to Face Date of Face to Face: Dec 18, 2021 Clinical Findings: Instability, Muscle weakness, Unsteady gait I have seen Pt hokw-lf-rsbt: Yes Discharged To: Home Diagnosis/Conditions: CVA Patient is Homebound due to: CognItive deficits, Hal fall risk due to instabilty, Muscle weakness Homebound Status Due to the above stated illness, injury or surgical procedure (medical condition or diagnosis) and associated clinical findings, the patient is homebound because of his/her inability to leave home except with aid of a supportive device and/or person AND leaving the home requires a considerable and taxing effort or is medically contraindicated. Pt req the following assistanc: Walker, Wheelchair Home Health Nursing Orders Home Health Services Order: Nursing Services, Corporate Development Associate-Evaluate & Treat, Physical Therapy-Evaluate & Treat Certify Stmt I certify that this patient is under my care and that I, a nurse practitioner or a physician; a assistant credit manager working with me, had a face to face encounter that - meets the physician face to face encounter requirements with this patient as dated. LUIS FELIPE LOPEZ DO Dec 18, 2021 12:03
--- NOTE | 2021-12-18 12:12 | Physical Therapy Daily Note ---
PT Daily Note-Current Subjective Pt. smile and agrees to Rx. pts w/c for home is delivered during PT. Pt. is very concerned that her aged will have to lift this in out of the car. SW shares this is the plan and family has committed to assisting with w/c. Pt. has no c/o and states she is so much stronger than when admitted Pain Location: No Pain Reported Mental Status Patient Orientation: Person, Place, Situation Transfers SCALE: Activities may be completed with or without assistive devices. 4-Iwvldeunpz-nirpxnc completes the activity by him/herself with no assistance from a helper. 5-Set-up or Clean-up Assistance-helper sets up or cleans up; patient completes activity. [place] assists only prior to or following the activity. 4-Supervision or Touching Assistance-helper provides verbal cues and/or touching/steadying and/or contact guard assistance as patient completes activity. Assistance may be provided throughout the activity or intermittently. 3-Partial/Moderate Assistance-helper does LESS THAN HALF the effort. [place] lifts, holds or supports trunk or limbs, but provides less than half the effort. 2-Substantial/Maximal Assistance-helper does MORE THAN HALF the effort. [place] lifts or holds trunk or limbs and provides more than half the effort. 6-Vxxvekkpm-agtkth does ALL the effort. Patient does none of the effort to complete the activity. Or, the assistance of 2 or more helpers is required for the patient to complete the activity. If activity was not attempted, code reason: 7-Patient Refused. 9-Not Applicable-not attempted and the patient did not perform the activity before the current illness, exacerbation or injury. 10-Not Attempted due to Environmental Limitations-(lack of equipment, weather restraints, etc.). 88-Not Attempted due to Medical Conditions or Safety Concerns. Roll Left & Right (QC): 6 Sit to Lying (QC): 6 Lying to Sitting/Side of Bed(Q: 6 Sit to Stand (QC): 6 Chair/Iay-bf-Rcnjz Xfer(QC): 6 Toilet Transfer (QC): 6 Car Transfer (QC): 6 Weight Bearing Full Weight Bearing Full Weight Bearing Gait Training Does the Patient Walk?: Yes Walk 10 feet (QC): 6 Walk 50 ft with 2 Turns(QC): 6 Walk 150 ft (QC): 6 Walking 10ft/uneven surface-QC: 6 Gait Persons Needed: 1 (superv) Gait Assistive Device: FWW needs some cues to approach chair or seating surface safely with FWW still in front of her, walker positioning during gait as well Wheelchair Training Does the Pt Use a Wheelchair?: Yes Wheel 50 ft with 2 turns (QC): 6 Wheel 150 ft (QC): 6 Type of Wheelchair: Manual indep to brake new w/c, height good Stair Training Stair Training: Handrails/: 2 handrails #of Steps: 4 1 Step (curb) (QC): 4 4 Steps (QC): 4 12 Steps (QC): 88 Stairs: Pattern: Step to pt. was fatigued after 4 steps, has 3 steps at home Exercises Seated Therapy Exercises: Ankle pumps, Sit to stand, Long arc quads, Hip flexion, Hip abd/add Seated Reps: 15 Treatments QC , gait, TRFs, stairs etc, w/c mob Assessment Current Status: Good Progress meets goals PT Short Term Goals Short Term Goals Time Frame: Dec 07, 2021 Roll Left & Right: 3 (modA) Sit to lyin (moA) Lying to sitting on side of be: 3 (modA) Sit to stand: 3 (modA) Chair/frm-zq-lvsrr transfer: 3 (modA) PT Bench Worker Helper Goals Fdc Goals PT Fdc Goals Time Frame: Dec 21, 2021 Roll Left & Right (QC): 3 (Jonathan) Sit to Lying (QC): 3 (Jonathan) Lying-Sitting on Side/Bed(QC): 3 (Jonathan) Sit to Stand (QC): 3 (Jonathan) Chair/Vlc-ec-Yxklt Xfer(QC): 3 (Jonathan) Toilet Transfer (QC): 3 (Jonathan) Car Transfer (QC): 3 (Jonathan) Does the Patient Walk: No and Walking Goal IS indicated Walk 10 feet (QC): 3 (modA) Walk 50ft with 2 Turns (QC): 88 Walk 150 ft (QC): 88 Walking 10ft on Uneven Surface: 88 1 Step (curb) (QC): 88 4 Steps (QC): 88 12 Steps (QC): 88 Picking up an Object (QC): 88 Wheel 50 feet with 2 turns (QC: 4 (SBA) Wheel 150 feet: 4 (SBA) PT Plan Treatment/Plan Treatment Plan: Continue Plan of Care Treatment Plan: Bed Mobility, Education, Functional Activity Anitra, Functional Strength, Group Therapy, Gait, Safety, Therapeutic Exercise, Transfers Treatment Duration: Dec 21, 2021 Frequency: At least 5 of 7 days/Wk (IRF) Estimated Hrs Per Day: 1.5 hours per day Patient and/or Family Agrees t: Yes Safety Risks/Education Patient Education: Gait Training, Transfer Techniques, Steps, Correct Positioning, Disease Process, Safety Issues Teaching Recipient: Patient Teaching Methods: Demonstration, Discussion Response to Teaching: Verbalize Understanding, Return Demonstration, Reinforcement Needed Time/GCodes Time In: 1115 Time Out: 1215 Total Billed Treatment Time: 60 Total Billed Treatment 1,FA35m,GT15m,EX10m NATAILE LADD WINDOW DRAPER Dec 18, 2021 12:11
--- NOTE | 2021-12-18 12:20 | Therapy Team Discharge Summary ---
Therapy Discharge Summary Discharge Recommendations Date of Discharge Physical Therapy Roll Left to Right (QC): 6 Sit to Lying (QC): 6 Lying to Sitting/Side of Bed(Q: 6 Sit to Stand (QC): 6 Chair/Drp-ts-Evxym Xfer(QC): 6 Toilet Transfer (QC): 6 Car Transfer (QC): 6 Does the Patient Walk: Yes Mode of Locomotion: Wheelchair Anticipated Mode of Locomotion: Both Walk 10 feet (QC): 6 Walk 50 ft with 2 Turns(QC): 6 Walk 150 ft (QC): 6 Walking 10ft on uneven surface: 6 Gait Assistive Device: FWW Does the Pt Use a Wheelchair: Yes Wheelchair Distance: 50'x2 Wheel 50 ft with 2 turns (QC): 6 Wheel 150 ft (QC): 6 Type of Wheelchair: Manual #of Steps: 4 1 Step (curb) (QC): 4 4 Steps (QC): 4 12 Steps (QC): 88 Balance Sitting Static: Poor Balance Sitting Dynamic: Poor Balance-Standing Static: Poor Picking up an Object (QC): 88 Occupational Therapy Decreased Activ Tolerance, Decreased UE Strength, Impaired Cognition, Impaired Coordination, Impaired Self-Care Skills, Restricted Funct UE ROM Eating (QC): 6 Oral Hygiene (QC): 6 Shower/Bathe Self (QC): 4 Upper Body Dressing (QC): 5 Lower Body Dressing (QC): 4 On/Off Footwear (QC): 5 Toileting Hygiene (QC): 4 Speech-Language Pathology Expression of Ideas/Wants: (3) Understanding Verbal Content: (3) Brief Interview-Mental Status: Yes Repetition of Three Words: Three (3) Temporal Orientation: Year: Correct (3) Temporal Orientation: Month: Accurate within 5 days(2) Temporal Orientation: Day: Correct (1) Recall : Wear to say "Sock": Yes, no cue required (2) Recall : Color: Yes, no cue required (2) Recall : Bed: Yes, no cue required (2) Memory/Recall Ability: Current season, That he or she is in a hsp/hsp unit, staff names PT Data Reduction Technician Goals Fdc Goals PT Fdc Goals Time Frame: Dec 21, 2021 Roll Left to Right (QC): 3 (Jonathan) Sit to Lying (QC): 3 (Jonathan) Lying-Sitting on Side/Bed(QC): 3 (Jonathan) Sit to Stand (QC): 3 (Jonathan) Chair/Jib-du-Mdfkr Xfer(QC): 3 (Jonathan) Car Transfer (QC): 3 (Jonathan) Does the Patient Walk: No and Walking Goal IS indicated Walk 10 feet (QC): 3 (modA) Walk 10ft-Uneven Surface(QC): 88 Walk 50ft with 2 Turns (QC): 88 Walk 150 ft (QC): 88 Wheel 50 feet with 2 turns (QC: 4 (SBA) 1 Step (curb) (QC): 88 4 Steps (QC): 88 12 Steps (QC): 88 Picking up an Object (QC): 88 OT Data Reduction Technician Goals Data Reduction Technician Goals Time Frame: Dec 28, 2021 Eating (QC): 5 (met) Oral Hygiene (QC): 6 (met) Shower/Bathe Self (QC): 4 (met) Upper Body Dressing (QC): 4 (met) Lower Body Dressing (QC): 4 (met) On/Off Footwear (QC): 4 (met) Toileting Hygiene (QC): 4 (met) Toilet/Commode Transfer (QC): 3 (Jonathan) 1=Demonstrate adherence to instructed precautions during ADL tasks. 2=Patient will verbalize/demonstrate understanding of assistive devices/modifications for ADL. 3=Patient will improve strength/tolerance for activity to enable patient to perform ADL's. Speech Data Reduction Technician Goals Fdc Goals 1. The patient will improve cognitive linguistic skills for a safe discharge to the least restricted environment. Time Frame: Two Weeks. CED TOLEDO Dec 18, 2021 12:20
--- NOTE | 2021-12-18 14:18 | Physical Therapy Daily Note ---
PT Daily Note-Current Subjective Pt. and preset. Both anxious for pt. to return home Pain Location: No Pain Reported Transfers SCALE: Activities may be completed with or without assistive devices. 1-Oufljfcbun-xsindgn completes the activity by him/herself with no assistance from a helper. 5-Set-up or Clean-up Assistance-helper sets up or cleans up; patient completes activity. [place] assists only prior to or following the activity. 4-Supervision or Touching Assistance-helper provides verbal cues and/or touc peggy/steadying and/or contact guard assistance as patient completes activity. Assistance may be provided throughout the activity or intermittently. 3-Partial/Moderate Assistance-helper does LESS THAN HALF the effort. [place] lifts, holds or supports trunk or limbs, but provides less than half the effort. 2-Substantial/Maximal Assistance-helper does MORE THAN HALF the effort. [place] lifts or holds trunk or limbs and provides more than half the effort. 5-Iuxtceubl-nbeufd does ALL the effort. Patient does none of the effort to complete the activity. Or, the assistance of 2 or more helpers is required for the patient to complete the activity. If activity was not attempted, code reason: 7-Patient Refused. 9-Not Applicable-not attempted and the patient did not perform the activity before the current illness, exacerbation or injury. 10-Not Attempted due to Environmental Limitations-(lack of equipment, weather restraints, etc.). 88-Not Attempted due to Medical Conditions or Safety Concerns. pt. rolls left to right and pushes self up in bed indep Weight Bearing Full Weight Bearing Full Weight Bearing Wheelchair Training was present for w/c training for collapsing w/c, applying brakes, removing leg rests and swinging them in and out. demonstrates indep and states his grand daughters will help him move w/c in out of home and car Exercises Supine Ex: Ankle pumps, Quad Set, Rolling, Glut sets, Heel Slides Supine Reps: 10 Treatments w/c training for , ex review for . Assessment Current Status: Good Progress meets goals PT Short Term Goals Short Term Goals Time Frame: Dec 07, 2021 Roll Left & Right: 3 (modA) Sit to lyin (moA) Lying to sitting on side of be: 3 (modA) Sit to stand: 3 (modA) Chair/rbd-ff-qaqtr transfer: 3 (modA) PT Fdc Goals Fdc Goals PT Fdc Goals Time Frame: Dec 21, 2021 Roll Left & Right (QC): 3 (Jonathan) Sit to Lying (QC): 3 (Jonathan) Lying-Sitting on Side/Bed(QC): 3 (Jonathan) Sit to Stand (QC): 3 (Jonathan) Chair/Kxg-qt-Deytq Xfer(QC): 3 (Jonathan) Toilet Transfer (QC): 3 (Jonathan) Car Transfer (QC): 3 (Jonathan) Does the Patient Walk: No and Walking Goal IS indicated Walk 10 feet (QC): 3 (modA) Walk 50ft with 2 Turns (QC): 88 Walk 150 ft (QC): 88 Walking 10ft on Uneven Surface: 88 1 Step (curb) (QC): 88 4 Steps (QC): 88 12 Steps (QC): 88 Picking up an Object (QC): 88 Wheel 50 feet with 2 turns (QC: 4 (SBA) Wheel 150 feet: 4 (SBA) PT Plan Treatment/Plan Treatment Plan: Continue Plan of Care Treatment Plan: Bed Mobility, Education, Functional Activity Anitra, Functional Strength, Group Therapy, Gait, Safety, Therapeutic Exercise, Transfers Treatment Duration: Dec 21, 2021 Frequency: At least 5 of 7 days/Wk (IRF) Estimated Hrs Per Day: 1.5 hours per day Patient and/or Family Agrees t: Yes Safety Risks/Education Patient Education: Correct Positioning, W/C Management Teaching Recipient: Primary Caregiver, Family Teaching Methods: Demonstration, Discussion Response to Teaching: Verbalize Understanding, Return Demonstration Time/GCodes Time In: 1350 Time Out: 1405 Total Billed Treatment Time: 15 Total Billed Treatment 1,Ex15m NATALIE LADD LOAN UNDERWRITER Dec 18, 2021 14:17
[2021-12-18 19:58] VITALS: BP 155/87
[2021-12-18] MEDS: ZOLPIDEM 5 MG (AMBIEN) TAB PO SCH (20:19)
--- NOTE | 2021-12-19 05:55 | Discharge Summary ---
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 Confusion now resolved Expressive aphasia much improved HTN HLP Chronic pain Osteoarthritis Cognitive decline with paranoia noted as outpatient in past 1 year Weight loss 6# since last seen in my clinic currently 124# Plan: Oral anticoagulation Aggressive rehab Supportive care Fall risk 12/01/21: Supportive care Monitor BP 12/02/21: Monitor BP Incontinence care 12/03/21: Monitor BP 12/04/21: Improved status Monitor closely 12/05/2021: Supportive care Fall risk 12/06/21: Ultram for pain as she takes at home No other concerns 12/07/21: Monitor closely Ultram PT OT 12/08/21: PT/OT Dramatic improvement 12/09/2021: Fall risk Increase independence 12/10/2021: Increase nutrition 12/11/21: Monitor closely Increase portion of nutrition 12/12/2021: Monitor closely 12/13/2021: Increase nutrition Fall risk 12/14/2021: BOYD management 12/15/2021: BOYD management 12/16/2021: Continued progress 12/17/2021: Monitor progress DC Tuesday12/18/2021: DC tomorrow (1) Cerebrovascular accident due to cerebral artery occlusion Status: Acute (2) Hypertension Status: Chronic (3) Osteoarthritis Status: Chronic (4) Insomnia Status: Chronic (5) Atrial fibrillation Status: Acute (6) Overactive bladder Status: Chronic (7) History of bowel resection Status: Chronic Discharge Summary Discharge Physical Examination Allergies: Coded Allergies: No Known Drug Allergies (Unverified , 05/10/14) Vitals & I&Os Vital Signs Date Time Temp Pulse Resp B/P (MAP) Pulse Ox O2 Delivery O2 Flow Rate FiO2 12/19/21 09:00 Room Air 12/19/21 07:30 36.8 94 16 138/81 (100) 98 General Appearance: Alert, Oriented X3, Cooperative Respiratory: Clear to Auscultation Cardiovascular: Regular Rate Psych/Mental Status: Mental Status NL Hospital Course Was the Problem List Reviewed?: Yes Pt had a lengthy hospital course for 20 days after she was admitted for CVA with left sided weakness and neglect. A-Fib diagnosed maintained on oral anti- coagulation that was initiated at discharge. Overall, she did very well. Blood pressure remained under control. There were no decomposition episodes during the hospital course. Bowel function returned back to normal. Urinary issues on a chronic basis had no flare. Overall, pt was deemed stable for discharge with a close follow-up with me. Labs (last 24 hrs) Laboratory Tests 11/30/21 05:55: Triglycerides Level 96, Cholesterol Level 142, LDL Cholesterol Direct 83, VLDL Cholesterol 19, HDL Cholesterol 40 11/30/21 17:07: Glucometer 77 11/30/21 20:53: Glucometer 105 12/01/21 05:31: White Blood Count 8.5, Red Blood Count 5.04, Hemoglobin 13.5, Hematocrit 43, Mean Corpuscular Volume 85, Mean Corpuscular Hemoglobin 27, Mean Corpuscular Hemoglobin Concent 32, Red Cell Distribution Width 13.9, Platelet Count 363, Mean Platelet Volume 11.0, Immature Granulocyte % (Auto) 1, Neutrophils (%) (Auto) 74, Lymphocytes (%) (Auto) 14, Monocytes (%) (Auto) 8, Eosinophils (%) (Auto) 4, Basophils (%) (Auto) 0, Neutrophils # (Auto) 6.3, Lymphocytes # (Auto) 1.2, Monocytes # (Auto) 0.7, Eosinophils # (Auto) 0.3, Basophils # (Auto) 0.0, Immature Granulocyte # (Auto) 0.1, Sodium Level 139, Potassium Level 4.2, Chloride Level 106, Carbon Dioxide Level 23, Anion Gap 10, Blood Urea Nitrogen 26H, Creatinine 1.02, Estimat Glomerular Filtration Rate 55, BUN/Creatinine Ratio 25, Glucose Level 90, Calcium Level 9.6, Corrected Calcium 10.0, Total Bilirubin 0.5, Aspartate Amino Transf (AST/SGOT) 23, Alanine Aminotransferase (ALT/SGPT) 22, Alkaline Phosphatase 95, Total Protein 6.2L, Albumin 3.5 12/01/21 11:10: Glucometer 120H 12/07/21 07:25: White Blood Count 8.7, Red Blood Count 5.33H, Hemoglobin 14.4, Hematocrit 45, Mean Corpuscular Volume 85, Mean Corpuscular Hemoglobin 27, Mean Corpuscular Hemoglobin Concent 32, Red Cell Distribution Width 14.1, Platelet Count 350, Mean Platelet Volume 11.5, Immature Granulocyte % (Auto) 0, Neutrophils (%) (Auto) 71, Lymphocytes (%) (Auto) 18, Monocytes (%) (Auto) 7, Eosinophils (%) (Auto) 4, Basophils (%) (Auto) 0, Neutrophils # (Auto) 6.1, Lymphocytes # (Auto) 1.6, Monocytes # (Auto) 0.6, Eosinophils # (Auto) 0.3, Basophils # (Auto) 0.0, Immature Granulocyte # (Auto) 0.0, Sodium Level 138, Potassium Level 4.2, Chloride Level 101, Carbon Dioxide Level 25, Anion Gap 12, Blood Urea Nitrogen 24H, Creatinine 1.15, Estimat Glomerular Filtration Rate 47, BUN/Creatinine Ratio 21, Glucose Level 146H, Calcium Level 10.2H, Corrected Calcium 10.4H, Total Bilirubin 0.6, Aspartate Amino Transf (AST/SGOT) 31, Alanine Aminotransferase (ALT/SGPT) 41, Alkaline Phosphatase 101, Total Protein 6.8, Albumin 3.7 12/14/21 06:13: White Blood Count 8.5, Red Blood Count 4.49, Hemoglobin 12.0, Hematocrit 38, Mean Corpuscular Volume 85, Mean Corpuscular Hemoglobin 27, Mean Corpuscular Hemoglobin Concent 32, Red Cell Distribution Width 14.1, Platelet Count 281, Mean Platelet Volume 11.1, Sodium Level 140, Potassium Level 4.4, Chloride Level 104, Carbon Dioxide Level 26, Anion Gap 10, Blood Urea Nitrogen 33H, Creatinine 1.01, Estimat Glomerular Filtration Rate 55, BUN/Creatinine Ratio 33, Glucose Level 95, Calcium Level 9.7, Corrected Calcium 10.3H, Total Bilirubin 0.4, Aspartate Amino Transf (AST/SGOT) 28, Alanine Aminotransferase (ALT/SGPT) 37, Alkaline Phosphatase 89, Total Protein 6.0L, Albumin 3.2 Pending Labs Laboratory Tests 11/30/21 05:55: Triglycerides Level 96, Cholesterol Level 142, LDL Cholesterol Direct 83, VLDL Cholesterol 19, HDL Cholesterol 40 11/30/21 17:07: Glucometer 77 11/30/21 20:53: Glucometer 105 12/01/21 05:31: White Blood Count 8.5, Red Blood Count 5.04, Hemoglobin 13.5, Hematocrit 43, Mean Corpuscular Volume 85, Mean Corpuscular Hemoglobin 27, Mean Corpuscular Hemoglobin Concent 32, Red Cell Distribution Width 13.9, Platelet Count 363, Mean Platelet Volume 11.0, Immature Granulocyte % (Auto) 1, Neutrophils (%) (Auto) 74, Lymphocytes (%) (Auto) 14, Monocytes (%) (Auto) 8, Eosinophils (%) (Auto) 4, Basophils (%) (Auto) 0, Neutrophils # (Auto) 6.3, Lymphocytes # (Auto) 1.2, Monocytes # (Auto) 0.7, Eosinophils # (Auto) 0.3, Basophils # (Auto) 0.0, Immature Granulocyte # (Auto) 0.1, Sodium Level 139, Potassium Level 4.2, Chlor fabby Level 106, Carbon Dioxide Level 23, Anion Gap 10, Blood Urea Nitrogen 26, Creatinine 1.02, Estimat Glomerular Filtration Rate 55, BUN/Creatinine Ratio 25, Glucose Level 90, Calcium Level 9.6, Corrected Calcium 10.0, Total Bilirubin 0.5, Aspartate Amino Transf (AST/SGOT) 23, Alanine Aminotransferase (ALT/SGPT) 22, Alkaline Phosphatase 95, Total Protein 6.2, Albumin 3.5 12/01/21 11:10: Glucometer 120 12/07/21 07:25: White Blood Count 8.7, Red Blood Count 5.33, Hemoglobin 14.4, Hematocrit 45, Mean Corpuscular Volume 85, Mean Corpuscular Hemoglobin 27, Mean Corpuscular Hemoglobin Concent 32, Red Cell Distribution Width 14.1, Platelet Count 350, Mean Platelet Volume 11.5, Immature Granulocyte % (Auto) 0, Neutrophils (%) (Auto) 71, Lymphocytes (%) (Auto) 18, Monocytes (%) (Auto) 7, Eosinophils (%) (Auto) 4, Basophils (%) (Auto) 0, Neutrophils # (Auto) 6.1, Lymphocytes # (Auto) 1.6, Monocytes # (Auto) 0.6, Eosinophils # (Auto) 0.3, Basophils # (Auto) 0.0, Immature Granulocyte # (Auto) 0.0, Sodium Level 138, Potassium Level 4.2, Chloride Level 101, Carbon Dioxide Level 25, Anion Gap 12, Blood Urea Nitrogen 24, Creatinine 1.15, Estimat Glomerular Filtration Rate 47, BUN/Creatinine Ratio 21, Glucose Level 146, Calcium Level 10.2, Corrected Calcium 10.4, Total Bilirubin 0.6, Aspartate Amino Transf (AST/SGOT) 31, Alanine Aminotransferase (ALT/SGPT) 41, Alkaline Phosphatase 101, Total Protein 6.8, Albumin 3.7 12/14/21 06:13: White Blood Count 8.5, Red Blood Count 4.49, Hemoglobin 12.0, Hematocrit 38, Mean Corpuscular Volume 85, Mean Corpuscular Hemoglobin 27, Mean Corpuscular Hemoglobin Concent 32, Red Cell Distribution Width 14.1, Platelet Count 281, Mean Platelet Volume 11.1, Sodium Level 140, Potassium Level 4.4, Chloride Level 104, Carbon Dioxide Level 26, Anion Gap 10, Blood Urea Nitrogen 33, Creatinine 1.01, Estimat Glomerular Filtration Rate 55, BUN/Creatinine Ratio 33, Glucose Level 95, Calcium Level 9.7, Corrected Calcium 10.3, Total Bilirubin 0.4, Asp artate Amino Transf (AST/SGOT) 28, Alanine Aminotransferase (ALT/SGPT) 37, Alkaline Phosphatase 89, Total Protein 6.0, Albumin 3.2 Discharge Home Medications: Active Scripts Active Aspirin 325 Mg Tablet 325 Mg PO DAILY Amlodipine Besylate 2.5 Mg Tablet 2.5 Mg PO DAILY Metoprolol Succinate 25 Mg Tab.er.24h 25 Mg PO DAILY Atorvastatin Calcium 80 Mg Tablet 80 Mg PO DAILY Eliquis (Apixaban) 2.5 Mg Tablet 2.5 Mg PO BID Reported Ambien (Zolpidem Tartrate) 5 Mg Tablet 5 Mg PO HS Baclofen 10 Mg Tablet 10 Mg PO TID PRN Tramadol HCl 50 Mg Tablet 100 Mg PO Q6H PRN Instructions to patient/family Please see electronic discharge instructions given to patient. Diagnosis/Problems Diagnosis/Problems (1) Cerebrovascular accident due to cerebral artery occlusion Status: Acute (2) Hypertension Status: Chronic (3) Osteoarthritis Status: Chronic (4) Insomnia Status: Chronic (5) Atrial fibrillation Status: Acute (6) Overactive bladder Status: Chronic (7) History of bowel resection Status: Chronic LUIS FELIPE COREAS DO Dec 19, 2021 05:55
[2021-12-19 07:30] VITALS: BP 138/81
[2021-12-19] MEDS: amLODIPine 2.5MG (NORVASC) TAB PO SCH (08:28)
[2021-12-19] MEDS: APIXABAN 2.5 MG (ELIQUIS) TABLET PO SCH (08:29)
[2021-12-19] MEDS: SENNOSIDES 8.6 MG (SENOKOT) TAB PO SCH (09:00)
[2021-12-19] MEDS: DOCUSATE SODIUM 100 MG (COLACE) CAP PO SCH (09:00)
[2021-12-19] MEDS: ASPIRIN 325 MG (5 GR) TABLET PO SCH (11:05)
--- NOTE | 2021-12-21 14:09 | Therapy Team Discharge Summary ---
Therapy Discharge Summary Discharge Recommendations Date of Discharge Dec 19, 2021 at 11:27 Therapy D/C Recommendations: Bath Aide, Occupational Therapy Home Care, Homemaker Support Physical Therapy Roll Left to Right (QC): 6 Sit to Lying (QC): 6 Lying to Sitting/Side of Bed(Q: 6 Sit to Stand (QC): 6 Chair/Foy-xg-Onqxm Xfer(QC): 6 Toilet Transfer (QC): 4 Car Transfer (QC): 6 Does the Patient Walk: Yes Mode of Locomotion: Wheelchair Anticipated Mode of Locomotion: Both Walk 10 feet (QC): 6 Walk 50 ft with 2 Turns(QC): 6 Walk 150 ft (QC): 6 Walking 10ft on uneven surface: 6 Gait Assistive Device: FWW Does the Pt Use a Wheelchair: Yes Wheelchair Distance: 50'x2 Wheel 50 ft with 2 turns (QC): 6 Wheel 150 ft (QC): 6 Type of Wheelchair: Manual #of Steps: 4 1 Step (curb) (QC): 4 4 Steps (QC): 4 12 Steps (QC): 88 Balance Sitting Static: Poor Balance Sitting Dynamic: Poor Balance-Standing Static: Poor Picking up an Object (QC): 88 Occupational Therapy Pt admitted to ARU with CVA. At time of evaluation she was dependent for toileting, footwear, lower body dressing, and bathing, max a for upper body dressing, and mod a for oral care and eating. During her rehab stay, OT focused on balance, endurance, strengthening, body awareness/proprioception, compensatory strategies, vision, FM coordination, cognition, sensation, and sa fety in order to increase participation and independence in adls and functional mobility. Pt made good progress and met all of her fci goals. See below for current levels of assist. Pt has discharged from this facility and will be discharged from OT at this time. Decreased Activ Tolerance, Decreased UE Strength, Impaired Cognition, Impaired Coordination, Impaired Self-Care Skills, Restricted Funct UE ROM Eating (QC): 6 Oral Hygiene (QC): 6 Shower/Bathe Self (QC): 4 Upper Body Dressing (QC): 5 Lower Body Dressing (QC): 4 On/Off Footwear (QC): 5 Toileting Hygiene (QC): 4 PT Retirement Goals Supervisor Scouring Pads Goals PT Supervisor Scouring Pads Goals Time Frame: Dec 21, 2021 Roll Left to Right (QC): 3 (Jonathan) Sit to Lying (QC): 3 (Jonathan) Lying-Sitting on Side/Bed(QC): 3 (Jonathan) Sit to Stand (QC): 3 (Jonathan) Chair/[id number]-Twcwr Xfer(QC): 3 (Jonathan) Car Transfer (QC): 3 (Jonathan) Does the Patient Walk: No and Walking Goal IS indicated Walk 10 feet (QC): 3 (modA) Walk 10ft-Uneven Surface(QC): 88 Walk 50ft with 2 Turns (QC): 88 Walk 150 ft (QC): 88 Wheel 50 feet with 2 turns (QC: 4 (SBA) 1 Step (curb) (QC): 88 4 Steps (QC): 88 12 Steps (QC): 88 Picking up an Object (QC): 88 OT Retirement Goals Retirement Goals Time Frame: Dec 28, 2021 Eating (QC): 5 (met) Oral Hygiene (QC): 6 (met) Shower/Bathe Self (QC): 4 (met) Upper Body Dressing (QC): 4 (met) Lower Body Dressing (QC): 4 (met) On/Off Footwear (QC): 4 (met) Toileting Hygiene (QC): 4 (met) Toilet/Commode Transfer (QC): 3 (Jonathan) 1=Demonstrate adherence to instructed precautions during ADL tasks. 2=Patient will verbalize/demonstrate understanding of assistive devices/modifications for ADL. 3=Patient will improve strength/tolerance for activity to enable patient to perform ADL's. Speech Retirement Goals Supervisor Scouring Pads Goals 1. The patient will improve cognitive linguistic skills for a safe discharge to the least restricted environment. Time Frame: Two Weeks. My Edwards OT Dec 21, 2021 14:09
== END 2021-12-19 11:27 | disposition home health service (06) | DRG 57 ==
PROVIDERS: ADMIT Internal Medicine; ATTEND Internal Medicine
DX: I69.354 Hemiplegia and hemiparesis following cerebral infarction affecting left non-dominant side (principal); Z68.1 Body mass index [BMI] 19.9 or less, adult; F05 Delirium due to known physiological condition; I69.320 Aphasia following cerebral infarction; I10 Essential (primary) hypertension; G89.29 Other chronic pain; I48.91 Unspecified atrial fibrillation; R41.89 Other symptoms and signs involving cognitive functions and awareness; M19.90 Unspecified osteoarthritis, unspecified site; E78.5 Hyperlipidemia, unspecified; G47.00 Insomnia, unspecified; N32.81 Overactive bladder; I69.392 Facial weakness following cerebral infarction; R32 Unspecified urinary incontinence; R15.9 Full incontinence of feces; F03.90 Unspecified dementia, unspecified severity, without behavioral disturbance, psychotic disturbance, mood disturbance, and anxiety; E66.9 Obesity, unspecified; M25.519 Pain in unspecified shoulder; F22 Delusional disorders; R00.0 Tachycardia, unspecified; Z79.82 Long term (current) use of aspirin; Z79.899 Other long term (current) drug therapy; Z79.01 Long term (current) use of anticoagulants
CPT/HCPCS: 36415; 80053; 80061; 82947; 85025; 85027; 94760